=== PATIENT | female | born 1950 | race Caucasian/White ===

== ENCOUNTER → 2017-11-20 | Outpatient (CLI) | payer MEDICARE, BC ==
--- NOTE | 2017-11-20 15:20 | BD ---
EXAMINATION TYPE: Axial Bone Density DATE OF EXAM: 11/20/2017 COMPARISON: NONE CLINICAL HISTORY: Z 13.820 Height: 64 IN Weight: 220 LBS FRAX RISK QUESTIONS: Secondary Osteoporosis: 3. Menopause before 45: YES AGE 43 RISK FACTORS HISTORY OF: Active: YES Postmenopausal woman: AGE 43 MEDICATIONS: Additional Medications: VIT D, AMLODIPINE, SERTRALINE, LISINOPRIL, GLIMEPIRIDE, LOVASTATIN, GABAPENTI N Additional History: BREAST CANCER WITH CHEMO AGE 43 EXAM MEASUREMENTS: Bone mineral densitometry was performed using the [employer] System. Bone mineral density as measured about the Lumbar spine is: ----- L1-L4(G/cm2): 1.303 T Score Values are as follows: ----- L2: 0.6 ----- L3: 2.4 ----- L4: 0.4 ----- L1-L4: 1.0 Bone mineral density BASELINE Bone mineral density about the R hip (g/cm2): 0.961 Bone mineral density about the L hip (g/cm2): 0.957 T Score values are as follows: -----R Neck: -0.6 -----L Neck: -0.6 -----R Total: 0.6 -----L Total: 0.7 Bone mineral density BASELINE IMPRESSION: Normal (Values between +1 and -1 indicate normal bone mass). Consider repeating this study in 5 year s or sooner if there is some new clinical indication. NOTE: T-SCORE=SD OF THE YOUNG ADULT MEAN.
== END | disposition home or self-care (01) ==
LOC: RADBDWWP 14:20
PROVIDERS: ATTEND Family Medicine
DX: Z13.820 Encounter for screening for osteoporosis (principal)
CPT/HCPCS: 77080

== ENCOUNTER 2020-03-23 13:50 | Emergency (ER) | payer MEDICARE, BC ==
[2020-03-23 13:58] VITALS: RESP 18; TEMP 98.4
--- NOTE | 2020-03-23 14:08 | ED ---
Headache HPI - General Chief Complaint: Headache Stated Complaint: Head pain Time Seen by Provider: 03/23/20 14:07 Mode of arrival: wheelchair Limitations: no limitations - History of Present Illness Initial Comments: 69-year-old female presenting to the emergency Department with a chief complaint of a headache. Patient states she has developed a headache and occipital region approximately 1 week ago. States she is able to control most of the pain with Tylenol but it continues to return. States the pain starts near the proximal cervical spine and radiates slightly superior to that. She denies any associated lightheadedness, dizziness, nausea, vomiting or diarrhea. She does report blurry vision but states that has been ongoing for quite some time and had her eyes evaluated by an environmental project manager with no significant findings. She denies any gait instability, one-sided weakness or paresthesias. She denies any neck stiffness, chills or fevers. - Related Data Home Medications Medication Instructions Recorded Confirmed Ascorbic Acid [Vitamin C] 1,000 mg PO DAILY 03/23/20 03/23/20 Cholecalciferol [Vitamin D3 (25 25 mcg PO DAILY 03/23/20 03/23/20 Mcg = 1000 Iu)] Cinnamon Bark [Cinnamon] 500 mg PO DAILY 03/23/20 03/23/20 Fluticasone Nasal [place] [Flonase 1 spray EA NOSTRIL BID PRN 03/23/20 03/23/20 Nasal [place]] Gabapentin 300 mg PO DAILY@1200 03/23/20 03/23/20 Gabapentin 600 mg PO BID 03/23/20 03/23/20 Garlic 1 tab PO DAILY 03/23/20 03/23/20 Glimepiride [Amaryl] 1 mg PO HS 03/23/20 03/23/20 Glimepiride [Amaryl] 2 mg PO DAILY 03/23/20 03/23/20 Lisinopril-Hctz 20-25 mg 1 tab PO DAILY 03/23/20 03/23/20 [Zestoretic 20-25] Lovastatin [Mevacor] 20 mg PO HS 03/23/20 03/23/20 [place]-3 Acid Ethyl Esters [Lovaza] 1 gm PO BID 03/23/20 03/23/20 Sertraline [Zoloft] 50 mg PO DAILY 01/19/21 01/19/21 Vitamin A 120 Mcg 120 mcg PO DAILY 03/23/20 03/23/20 amLODIPine [Norvasc] 5 mg PO HS 03/23/20 03/23/20 metFORMIN HCL ER [Glucophage Xr] 500 mg PO BID 03/23/20 03/23/20 Allergies Allergy/AdvReac Type Severity Reaction Status Date / Time amoxicillin Allergy Unknown Verified 03/23/20 15:21 Penicillins Allergy Unknown Verified 03/23/20 15:21 phenytoin [From Dilantin] Allergy Unknown Verified 03/23/20 15:21 Sulfa (Sulfonamide Allergy Unknown Verified 03/23/20 15:21 Antibiotics) Review of Systems ROS Statement: Those systems with pertinent positive or pertinent negative responses have been documented in the HPI. ROS Other: All systems not noted in ROS Statement are negative. Past Medical History Past Medical History: Cancer, Diabetes Mellitus, Hyperlipidemia, Hypertension Additional Past Medical History / Comment(s): breast cancer History of Any Multi-Drug Resistant Organisms: None Reported Past Surgical History: Breast Surgery Additional Past Surgical History / Comment(s): right mastectomy Past Psychological History: No Psychological Hx Reported Smoking Status: Former smoker Past Alcohol Use History: Occasional Past Drug Use History: None Reported General Exam Limitations: no limitations General appearance: alert, in no apparent distress, obese Head exam: Present: atraumatic, normocephalic, normal inspection. Absent: other (No tenderness over the temporal region, bilaterally.) Eye exam: Present: normal appearance, PERRL, EOMI Pupils: Present: normal accommodation ENT exam: Present: normal exam, normal oropharynx, mucous membranes moist, TM's normal bilaterally, normal external ear exam Neck exam: Present: normal inspection, full ROM. Absent: tenderness Respiratory exam: Present: normal lung sounds bilaterally. Absent: respiratory distress, wheezes, rales Cardiovascular Exam: Present: regular rate, normal rhythm, normal heart sounds Extremities exam: Present: normal inspection, full ROM, normal capillary refill. Absent: tenderness, pedal edema, joint swelling, calf tenderness Back exam: Present: normal inspection, full ROM. Absent: tenderness, CVA tenderness (R), CVA tenderness (L) Neurological exam: Present: alert, oriented X3, normal gait Psychiatric exam: Present: normal affect, normal mood Skin exam: Present: warm, dry, intact, normal color Course Vital Signs 03/23/20 03/23/20 13:53 16:17 Temperature 98.4 F Pulse Rate 83 63 Respiratory 18 18 Rate Blood Pressure 153/77 155/57 O2 Sat by Pulse 98 100 Oximetry Medical Decision Making - Medical Decision Making 61-year-old female presenting to the emergency department with chief complaint of a headache. On physical examination, patient does not have any focal neurologic deficits. Tenderness seems to be localized to the superior region of the cervical spine and slightly superior that in the occipital region. She does have paraspinal tenderness of the cervical neck. Full range of motion of the neck. No fever or chills. VS within normal limits. CBC CMP unremarkable. CT of the brain and C-spine are unremarkable. Patient was given IV fluids, Toradol, Reglan and Benadryl. On reevaluation, patient reports improvement in symptoms. Patient was advised to follow-up with her primary care physician and a neurologist. Return parameters were thoroughly discussed the patient was understanding and agreeable. Case discussed with physician. - Lab Data Result diagrams: 03/23/20 14:29 03/23/20 14:29 Lab Results 03/23/20 03/23/20 Range/Units 14:29 14:29 WBC 5.3 (3.8-10.6) k/uL RBC 4.05 (3.80-5.40) m/uL Hgb 13.0 (11.4-16.0) gm/dL Hct 37.3 (34.0-46.0) % MCV 92.1 (80.0-100.0) fL MCH 32.1 (25.0-35.0) pg MCHC 34.8 (31.0-37.0) g/dL RDW 13.3 (11.5-15.5) % Plt Count 229 (150-450) k/uL MPV 7.2 Neutrophils % 57 % Lymphocytes % 33 % Monocytes % 6 % Eosinophils % 3 % Basophils % 1 % Neutrophils # 3.0 (1.3-7.7) k/uL Lymphocytes # 1.7 (1.0-4.8) k/uL Monocytes # 0.3 (0-1.0) k/uL Eosinophils # 0.1 (0-0.7) k/uL Basophils # 0.0 (0-0.2) k/uL Sodium 141 (137-145) mmol/L Potassium 4.0 (3.5-5.1) mmol/L Chloride 108 H (98-107) mmol/L Carbon Dioxide 25 (22-30) mmol/L Anion Gap 8 mmol/L BUN 19 H (7-17) mg/dL Creatinine 0.76 (0.52-1.04) mg/dL Est GFR (CKD-EPI)AfAm >90 (>60 ml/min/1.73 sqM) Est GFR (CKD-EPI)NonAf 81 (>60 ml/min/1.73 sqM) Glucose 161 H (74-99) mg/dL Calcium 10.0 (8.4-10.2) mg/dL Total Bilirubin 0.4 (0.2-1.3) mg/dL AST 21 (14-36) U/L ALT 23 (4-34) U/L Alkaline Phosphatase 46 (38-126) U/L Total Protein 7.3 (6.3-8.2) g/dL Albumin 4.4 (3.5-5.0) g/dL Disposition Clinical Impression: Headache Disposition: HOME SELF-CARE Condition: Stable Instructions (If sedation given, give patient instructions): Acute Headache (ED ) Additional Instructions: Alternate between Tylenol and Motrin for pain control. Follow up with neurology. Return to emergency department if symptoms worsen. Is patient prescribed a controlled substance at d/c from ED?: No Referrals: Heriberto Eubanks MD [Primary Care Provider] - 1-2 days Brian Glover MD [STAFF PHYSICIAN] - 1-2 days Time of Disposition: 16:07
[2020-03-23] MEDS ORDERED: SODIUM CHLORIDE 0.9% 1,000 ML IV STA (14:21)
[2020-03-23] MEDS ORDERED: METOCLOPRAMIDE 5 MG/ML 2 ML VIAL IVP STA (14:23)
[2020-03-23] MEDS ORDERED: diphenhydrAMINE 50 MG/ML 1 ML VIAL IVP STA (14:23)
[2020-03-23] MEDS ORDERED: KETOROLAC 15 MG/ML 1 ML VIAL IVP STA (14:23)
[2020-03-23 14:45] LABS: Basophils % (A) 1 %; Eosinophils # (A) 0.1 k/uL (0-0.7); Eosinophils % (A) 3 %; HCT 37.3 % (34.0-46.0); Lymphocytes # (A) 1.7 k/uL (1.0-4.8); Lymphocytes % (A) 33 %; MCH 32.1 pg (25.0-35.0); MCHC 34.8 g/dL (31.0-37.0); MCV 92.1 fL (80.0-100.0); Mean Platelet Volume 7.2; Monocytes # (A) 0.3 k/uL (0-1.0); Monocytes % (A) 6 %; Neutrophils % (A) 57 %; Platelet Count 229 k/uL (150-450); RBC 4.05 m/uL (3.80-5.40); RDW 13.3 % (11.5-15.5); WBC 5.3 k/uL (3.8-10.6)
[2020-03-23 14:54] LABS: ALT 23 U/L (4-34); AST 21 U/L (14-36); African American GFR (CKD) >90 (>60 ml/min/1.73 sqM); Albumin 4.4 g/dL (3.5-5.0); Alkaline Phosphatase 46 U/L (38-126); Anion Gap 8 mmol/L; Blood Urea Nitrogen 19 mg/dL (7-17); Carbon Dioxide 25 mmol/L (22-30); Chloride 108 mmol/L (98-107); Glucose 161 mg/dL (74-99); Non-African American GFR(CKD) 81 (>60 ml/min/1.73 sqM); Sodium 141 mmol/L (137-145); Total Bilirubin 0.4 mg/dL (0.2-1.3); Total Protein 7.3 g/dL (6.3-8.2)
--- NOTE | 2020-03-23 15:27 | CT ---
EXAMINATION TYPE: CT cervical spine wo con DATE OF EXAM: 03/23/2020 COMPARISON: None HISTORY: Posterior neck and Right arm pain without injury CT DLP: 460.4 mGycm CONTRAST: None CT of the cervical spine is performed in the axial plane at 2 mm thick sections. Reconstructed image s in the coronal, and sagittal plane are reviewed on the computer. No acute fractures are evident. Vertebral body alignment is normal. Disc heights are preserved. Vertebral body heights are preserved. No spinal canal stenosis is evident No neural foraminal stenosis is evident. IMPRESSIONS: 1. Normal CT cervical spine.
--- NOTE | 2020-03-23 15:49 | CT ---
EXAMINATION TYPE: CT brain wo con DATE OF EXAM: 03/23/2020 COMPARISON: None INDICATION: headache DLP: 1068.4 mGycm, Automated exposure control for dose reduction was used. CONTRAST: None CT of the brain is performed utilizing 3 mm thick sections through the posterior fossa and 3 mm thick sections through the remaining calvarium. Study is performed within 24 hours of arrival to the hosp [facility]. No abnormal hyperdensity is present to suggest an acute intracranial hemorrhage. No mass lesion is evident. No acute infarcts are evident. Ventricles and sulci are appropriate for the patient age. Paranasal sinuses and mastoid air cells within the [id number] are clear. IMPRESSIONS: 1. Normal CT Brain
[2020-03-23 16:18] VITALS: BP 155/57; PULSE 63
== END 2020-03-23 16:17 | disposition home or self-care (01) ==
LOC: EC 13:50
DX: R51.9 Headache, unspecified (principal); H53.8 Other visual disturbances; E78.5 Hyperlipidemia, unspecified; E11.9 Type 2 diabetes mellitus without complications; I10 Essential (primary) hypertension; Z79.84 Long term (current) use of oral hypoglycemic drugs; Z79.899 Other long term (current) drug therapy; Z88.0 Allergy status to penicillin; Z88.2 Allergy status to sulfonamides; Z88.8 Allergy status to other drugs, medicaments and biological substances; Z87.891 Personal history of nicotine dependence; Z85.3 Personal history of malignant neoplasm of breast; Z90.11 Acquired absence of right breast and nipple
CPT/HCPCS: 36415; 80053; 85025; 72125; 70450; 99284; 96374; 96375 ×2; 96361 ×2; J1200; J2765; J1885

== ENCOUNTER 2020-04-14 11:39 | Emergency (ER) | payer MEDICARE, BC ==
[2020-04-14 11:46] VITALS: TEMP 98.2
[2020-04-14 12:09] LABS: Glucose,Whole Blood 262 mg/dL (75-99)
--- NOTE | 2020-04-14 12:59 | XR ---
EXAMINATION TYPE: XR chest 2V DATE OF EXAM: 04/14/2020 COMPARISON: NONE TECHNIQUE: PA and lateral views submitted. HISTORY: High blood pressure and weakness FINDINGS: The lungs are clear and there is no pneumothorax, pleural effusion, or focal pneumonia. Heart size normal. No overt failure. Arthropathy of the shoulders. Degenerative changes spine. Hyperinflation gonzales ggests COPD. IMPRESSION: 1. No acute process.
[2020-04-14 13:07] LABS: ALT 32 U/L (4-34); AST 31 U/L (14-36); African American GFR (CKD) >90 (>60 ml/min/1.73 sqM); Alkaline Phosphatase 66 U/L (38-126); Anion Gap 13 mmol/L; Blood Urea Nitrogen 19 mg/dL (7-17); Calcium 10.6 mg/dL (8.4-10.2); Carbon Dioxide 27 mmol/L (22-30); Chloride 100 mmol/L (98-107); Glucose 268 mg/dL (74-99); Magnesium 1.7 mg/dL (1.6-2.3); Non-African American GFR(CKD) >90 (>60 ml/min/1.73 sqM); Phosphorus 3.3 mg/dL (2.5-4.5); Potassium 4.5 mmol/L (3.5-5.1); Sodium 140 mmol/L (137-145); Total Bilirubin 0.6 mg/dL (0.2-1.3); Total Protein 8.2 g/dL (6.3-8.2)
[2020-04-14 13:10] LABS: Appearance,Urine Clear (Clear); Bilirubin,Urine Negative (Negative); Blood,Urine Negative (Negative); Color,Urine Yellow; Glucose,Urine (UA) Negative (Negative); Ketones,Urine Negative (Negative); Leukocyte Esterase,Urine Small (Negative); Mucus,Urine Rare /hpf; Nitrite,Urine Negative (Negative); PH, Urine 6.5 (5.0-8.0); Protein,Urine Negative (Negative); Specific Gravity,Urine 1.009 (1.001-1.035); Squamous Epithelial Cell,Urine <1 /hpf (0-4); Urobilinogen,Urine <2.0 mg/dL (<2.0); WBC,Urine 3 /hpf (0-5)
[2020-04-14] MEDS ORDERED: INSULIN REGULAR 100 UNIT/ML VIAL SQ ONE (13:22)
[2020-04-14 13:32] LABS: Basophils % (A) 1 %; Eosinophils # (A) 0.1 k/uL (0-0.7); Eosinophils % (A) 2 %; HCT 39.5 % (34.0-46.0); HGB 13.1 gm/dL (11.4-16.0); Lymphocytes # (A) 1.5 k/uL (1.0-4.8); Lymphocytes % (A) 29 %; MCH 30.7 pg (25.0-35.0); MCHC 33.1 g/dL (31.0-37.0); MCV 92.7 fL (80.0-100.0); Mean Platelet Volume 7.5; Monocytes # (A) 0.3 k/uL (0-1.0); Monocytes % (A) 5 %; Neutrophils # (A) 3.2 k/uL (1.3-7.7); Neutrophils % (A) 63 %; Platelet Count 238 k/uL (150-450); RBC 4.26 m/uL (3.80-5.40); RDW 13.1 % (11.5-15.5); WBC 5.1 k/uL (3.8-10.6)
[2020-04-14 13:49] LABS: INR 0.9 (<1.2); Prothrombin Time 10.2 sec (9.0-12.0)
[2020-04-14 13:55] LABS: Partial Thromboplastin Time 19.1 sec (22.0-30.0)
[2020-04-14 14:00] LABS: Glucose,Whole Blood 241 mg/dL (75-99)
--- NOTE | 2020-04-14 14:06 | ED ---
Recheck HPI - General Chief Complaint: Recheck/Abnormal Lab/Rx Stated Complaint: High Blood Sugar Time Seen by Provider: 04/14/20 11:54 Source: patient Mode of arrival: wheelchair Limitations: no limitations - History of Present Illness Initial Comments: 69-year-old female presenting today for chief complaint of elevated blood glucose, fatigue. Patient states she has felt fatigued and she thinks is all secondary to her elevated blood glucose levels. She states they have been around 300-400s. Patient denies any dysuria urgency frequency cough chest pain shortness of breath headache nausea vomiting visual changes weakness sensation deficits. She denies abdominal pain vomiting diarrhea she denies additional complaints. She states she just felt more tired than usual and thinks this is secondary to her sugars. - Related Data Home Medications Medication Instructions Recorded Confirmed Ascorbic Acid [Vitamin C] 1,000 mg PO DAILY 03/23/20 04/14/20 Cholecalciferol [Vitamin D3 (25 25 mcg PO DAILY 03/23/20 04/14/20 Mcg = 1000 Iu)] Cinnamon Bark [Cinnamon] 500 mg PO DAILY 03/23/20 04/14/20 Fluticasone Nasal [place] [Flonase 1 spray EA NOSTRIL BID 03/23/20 04/14/20 Nasal [place]] Gabapentin 300 mg PO DAILY@1200 03/23/20 04/14/20 Gabapentin 600 mg PO BID 03/23/20 04/14/20 Garlic 1 tab PO DAILY 03/23/20 04/14/20 Glimepiride [Amaryl] 1.5 mg PO HS 03/23/20 04/14/20 Glimepiride [Amaryl] 2 mg PO DAILY 03/23/20 04/14/20 Lisinopril-Hctz 20-25 mg 1 tab PO DAILY 03/23/20 04/14/20 [Zestoretic 20-25] Lovastatin [Mevacor] 20 mg PO HS 03/23/20 04/14/20 [place]-3 Acid Ethyl Esters [Lovaza] 1 gm PO BID 03/23/20 04/14/20 Sertraline [Zoloft] 50 mg PO DAILY 03/23/20 04/14/20 Vitamin A 120 Mcg 120 mcg PO DAILY 03/23/20 04/14/20 amLODIPine [Norvasc] 5 mg PO BID 03/23/20 04/14/20 metFORMIN HCL ER [Glucophage Xr] 750 mg PO DAILY 03/23/20 04/14/20 Coconut Oil 1 cap PO DAILY 04/14/20 04/14/20 Cranberry Fruit Extract [Cranberry] 500 mg PO DAILY 04/14/20 04/14/20 Lysine HCl [l-Lysine] 1,000 mg PO DAILY 04/14/20 04/14/20 Tart Doll Extract 1 cap PO DAILY 04/14/20 04/14/20 Turmeric/Turmeric Root Extract 1 cap PO DAILY 04/14/20 04/14/20 [Turmeric 450-50 mg Capsule] Allergies Allergy/AdvReac Type Severity Reaction Status Date / Time amoxicillin Allergy Unknown Verified 04/14/20 13:26 Penicillins Allergy Unknown Verified 04/14/20 13:26 phenytoin [From Dilantin] Allergy Unknown Verified 04/14/20 13:26 Sulfa (Sulfonamide Allergy Unknown Verified 04/14/20 13:26 Antibiotics) Review of Systems ROS Statement: Those systems with pertinent positive or pertinent negative responses have been documented in the HPI. ROS Other: All systems not noted in ROS Statement are negative. Past Medical History Past Medical History: Cancer, Diabetes Mellitus, Hyperlipidemia, Hypertension Additional Past Medical History / Comment(s): breast cancer History of Any Multi-Drug Resistant Organisms: None Reported Past Surgical History: Breast Surgery Additional Past Surgical History / Comment(s): right mastectomy Past Psychological History: Anxiety Smoking Status: Former smoker Past Alcohol Use History: Occasional Past Drug Use History: None Reported General Exam - General Exam Comments Initial Comments: General: The patient is awake and alert, in no distress Eye: +3 mm pupils are equal, round and reactive to light, extra-ocular movements are intact. No nystagmus. There is normal conjunctiva bilaterally. No signs of icterus. Ears, nose, mouth and throat: There are moist mucous membranes and no oral lesions. Neck: The neck is supple, there is no tenderness or JVD. Cardiovascular: There is a regular rate and rhythm. No murmur, rub or gallop is appreciated. Respiratory: Lungs are clear to auscultation, respirations are non-labored, breath sounds are equal. No wheezes, stridor, rales, or rhonchi. Gastrointestinal: Soft, non-distended, non-tender abdomen without masses or organomegaly noted. There is no rebound or guarding present. Musculoskeletal: Normal ROM, no tenderness. Strength 5/5. Sensation intact. Radial pulses equal bilaterally 2+. Neurological: A&O x 3. CN II-XII intact grossly, There are no obvious motor or sensory deficits. Coordination appears grossly intact. Speech is normal. Skin: Skin is warm and dry and no rashes or lesions are noted. Psychiatric: Cooperative, appropriate mood & affect, normal judgment. Limitations: no limitations Course Vital Signs 04/14/20 04/14/20 11:42 14:29 Temperature 98.2 F Pulse Rate 89 77 Respiratory 20 18 Rate Blood Pressure 186/82 135/66 O2 Sat by Pulse 98 97 Oximetry Medical Decision Making - Medical Decision Making Leukos elevated. Anion gap 13. No ketones in urine. Acetone negative. Patient does not appear to She appears in no distress lungs clear heart sounds within normal limits. Chest x-ray clear EKG no acute findings. Patient sugar is elevated however at this point feel to be managed on outpatient basis. Patient was given 1 dose of 3 units of subcu regular insulin. Return per Mckayla discussed patient discharged appearing well. Dr. Puente agreeable to care plan and discharge. - Lab Data Result diagrams: 04/14/20 13:10 04/14/20 12:24 Lab Results 04/14/20 04/14/20 04/14/20 Range/Units 12:07 12:24 12:24 WBC (3.8-10.6) k/uL RBC (3.80-5.40) m/uL Hgb (11.4-16.0) gm/dL Hct (34.0-46.0) % MCV (80.0-100.0) fL MCH (25.0-35.0) pg MCHC (31.0-37.0) g/dL RDW (11.5-15.5) % Plt Count (150-450) k/uL MPV Neutrophils % % Lymphocytes % % Monocytes % % Eosinophils % % Basophils % % Neutrophils # (1.3-7.7) k/uL Lymphocytes # (1.0-4.8) k/uL Monocytes # (0-1.0) k/uL Eosinophils # (0-0.7) k/uL Basophils # (0-0.2) k/uL PT (9.0-12.0) sec INR (<1.2) APTT (22.0-30.0) sec Sodium 140 (137-145) mmol/L Potassium 4.5 (3.5-5.1) mmol/L Chloride 100 (98-107) mmol/L Carbon Dioxide 27 (22-30) mmol/L Anion Gap 13 mmol/L BUN 19 H (7-17) mg/dL Creatinine 0.68 (0.52-1.04) mg/dL Est GFR (CKD-EPI)AfAm >90 (>60 ml/min/1.73 sqM) Est GFR (CKD-EPI)NonAf >90 (>60 ml/min/1.73 sqM) Glucose 268 H (74-99) mg/dL POC Glucose (mg/dL) 262 H (75-99) mg/dL POC Glu Burlesque Dancer ID Svacha, II, Armando Plasma Lactic Acid [place] 2.1 H* (0.7-2.0) mmol/L Calcium 10.6 H (8.4-10.2) mg/dL Phosphorus 3.3 (2.5-4.5) mg/dL Magnesium 1.7 (1.6-2.3) mg/dL Total Bilirubin 0.6 (0.2-1.3) mg/dL AST 31 (14-36) U/L ALT 32 (4-34) U/L Alkaline Phosphatase 66 (38-126) U/L Troponin I (0.000-0.034) ng/mL Total Protein 8.2 (6.3-8.2) g/dL Albumin 5.0 (3.5-5.0) g/dL Urine Color Urine Appearance (Clear) Urine pH (5.0-8.0) Ur Specific [place] (1.001-1.035) Urine Protein (Negative) Urine Glucose (UA) (Negative) Urine Ketones (Negative) Urine Blood (Negative) Urine Nitrite (Negative) Urine Bilirubin (Negative) Urine Urobilinogen (<2.0) mg/dL Ur Leukocyte Esterase (Negative) Urine WBC (0-5) /hpf Ur Squamous Epith Cells (0-4) /hpf Urine Mucus (None) /hpf Acetone, Qual Negative (Negative) 04/14/20 04/14/20 04/14/20 Range/Units 12:24 12:42 13:10 WBC (3.8-10.6) k/uL RBC (3.80-5.40) m/uL Hgb (11.4-16.0) gm/dL Hct (34.0-46.0) % MCV (80.0-100.0) fL MCH (25.0-35.0) pg MCHC (31.0-37.0) g/dL RDW (11.5-15.5) % Plt Count (150-450) k/uL MPV Neutrophils % % Lymphocytes % % Monocytes % % Eosinophils % % Basophils % % Neutrophils # (1.3-7.7) k/uL Lymphocytes # (1.0-4.8) k/uL Monocytes # (0-1.0) k/uL Eosinophils # (0-0.7) k/uL Basophils # (0-0.2) k/uL PT 10.2 (9.0-12.0) sec INR 0.9 (<1.2) APTT 19.1 L (22.0-30.0) sec Sodium (137-145) mmol/L Potassium (3.5-5.1) mmol/L Chloride (98-107) mmol/L Carbon Dioxide (22-30) mmol/L Anion Gap mmol/L BUN (7-17) mg/dL Creatinine (0.52-1.04) mg/dL Est GFR (CKD-EPI)AfAm (>60 ml/min/1.73 sqM) Est GFR (CKD-EPI)NonAf (>60 ml/min/1.73 sqM) Glucose (74-99) mg/dL POC Glucose (mg/dL) (75-99) mg/dL POC Glu Burlesque Dancer ID Plasma Lactic Acid Dave[place] (0.7-2.0) mmol/L Calcium (8.4-10.2) mg/dL Phosphorus (2.5-4.5) mg/dL Magnesium (1.6-2.3) mg/dL Total Bilirubin (0.2-1.3) mg/dL AST (14-36) U/L ALT (4-34) U/L Alkaline Phosphatase (38-126) U/L Troponin I <0.012 (0.000-0.034) ng/mL Total Protein (6.3-8.2) g/dL Albumin (3.5-5.0) g/dL Urine Color Yellow Urine Appearance Clear (Clear) Urine pH 6.5 (5.0-8.0) Ur Specific [place] 1.009 (1.001-1.035) Urine Protein Negative (Negative) Urine Glucose (UA) Negative (Negative) Urine Ketones Negative (Negative) Urine Blood Negative (Negative) Urine Nitrite Negative (Negative) Urine Bilirubin Negative (Negative) Urine Urobilinogen <2.0 (<2.0) mg/dL Ur Leukocyte Esterase Small H (Negative) Urine WBC 3 (0-5) /hpf Ur Squamous Epith Cells <1 (0-4) /hpf Urine Mucus Rare H (None) /hpf Acetone, Qual (Negative) 04/14/20 04/14/20 Range/Units 13:10 13:57 WBC 5.1 (3.8-10.6) k/uL RBC 4.26 (3.80-5.40) m/uL Hgb 13.1 (11.4-16.0) gm/dL Hct 39.5 (34.0-46.0) % MCV 92.7 (80.0-100.0) fL MCH 30.7 (25.0-35.0) pg MCHC 33.1 (31.0-37.0) g/dL RDW 13.1 (11.5-15.5) % Plt Count 238 (150-450) k/uL MPV 7.5 Neutrophils % 63 % Lymphocytes % 29 % Monocytes % 5 % Eosinophils % 2 % Basophils % 1 % Neutrophils # 3.2 (1.3-7.7) k/uL Lymphocytes # 1.5 (1.0-4.8) k/uL Monocytes # 0.3 (0-1.0) k/uL Eosinophils # 0.1 (0-0.7) k/uL Basophils # 0.0 (0-0.2) k/uL PT (9.0-12.0) sec INR (<1.2) APTT (22.0-30.0) sec Sodium (137-145) mmol/L Potassium (3.5-5.1) mmol/L Chloride (98-107) mmol/L Carbon Dioxide (22-30) mmol/L Anion Gap mmol/L BUN (7-17) mg/dL Creatinine (0.52-1.04) mg/dL Est GFR (CKD-EPI)AfAm (>60 ml/min/1.73 sqM) Est GFR (CKD-EPI)NonAf (>60 ml/min/1.73 sqM) Glucose (74-99) mg/dL POC Glucose (mg/dL) 241 H (75-99) mg/dL POC Glu Burlesque Dancer LJ Charlene Aviles Plasma Lactic Acid [place] (0.7-2.0) mmol/L Calcium (8.4-10.2) mg/dL Phosphorus (2.5-4.5) mg/dL Magnesium (1.6-2.3) mg/dL Total Bilirubin (0.2-1.3) mg/dL AST (14-36) U/L ALT (4-34) U/L Alkaline Phosphatase (38-126) U/L Troponin I (0.000-0.034) ng/mL Total Protein (6.3-8.2) g/dL Albumin (3.5-5.0) g/dL Urine Color Urine Appearance (Clear) Urine pH (5.0-8.0) Ur Specific [place] (1.001-1.035) Urine Protein (Negative) Urine Glucose (UA) (Negative) Urine Ketones (Negative) Urine Blood (Negative) Urine Nitrite (Negative) Urine Bilirubin (Negative) Urine Urobilinogen (<2.0) mg/dL Ur Leukocyte Esterase (Negative) Urine WBC (0-5) /hpf Ur Squamous Epith Cells (0-4) /hpf Urine Mucus (None) /hpf Acetone, Qual (Negative) Disposition Clinical Impression: Hyperglycemia, Fatigue Disposition: HOME SELF-CARE Condition: Good Instructions (If sedation given, give patient instructions): Diabetic Hyperglycemia (ED) Additional Instructions: Please use medication as discussed. Please follow-up with family doctor in the next 2 days for outpatient glucose management. Please return to emergency room if the symptoms increase or worsen or for any other concerns. Is patient prescribed a controlled substance at d/c from ED?: No Referrals: Heriberto Eubanks MD [Primary Care Provider] - 1-2 days Time of Disposition: 14:05
[2020-04-14 14:29] VITALS: BP 135/66; PULSE 77; RESP 18
== END 2020-04-14 14:30 | disposition home or self-care (01) ==
LOC: EC 11:39
DX: E11.65 Type 2 diabetes mellitus with hyperglycemia (principal); R53.83 Other fatigue; I10 Essential (primary) hypertension; E78.5 Hyperlipidemia, unspecified; F41.9 Anxiety disorder, unspecified; Z79.51 Long term (current) use of inhaled steroids; Z79.84 Long term (current) use of oral hypoglycemic drugs; Z79.899 Other long term (current) drug therapy; Z88.0 Allergy status to penicillin; Z88.2 Allergy status to sulfonamides; Z88.8 Allergy status to other drugs, medicaments and biological substances; Z85.3 Personal history of malignant neoplasm of breast; Z90.11 Acquired absence of right breast and nipple; Z87.891 Personal history of nicotine dependence
CPT/HCPCS: 36415; 71046; 80053; 81001; 82009; 83605; 83735; 84100; 84484; 85025; 85610; 85730; 93005; 99285

== ENCOUNTER 2020-06-07 10:51 | Emergency (ER) | payer MEDICARE, BC ==
[2020-06-07 11:07] VITALS: PULSE 98
--- NOTE | 2020-06-07 12:16 | XR ---
EXAMINATION TYPE: XR chest 2V DATE OF EXAM: 06/07/2020 COMPARISON: 04/14/2020 TECHNIQUE: PA and lateral views submitted. HISTORY: Cough FINDINGS: The lungs are clear and there is no pneumothorax, pleural effusion, or focal pneumonia. Coarsened in terstitium noted with subsegmental changes seen in the left lung. Heart size normal. Biapical pleural thickening. Arthropathy of the shoulder. Mild hyperinflation. Hypertrophic and degenerative change o f the spine. IMPRESSION: 1. Correlate for bronchitis or mild interstitial pneumonitis
[2020-06-07 12:53] VITALS: BP 133/87
--- NOTE | 2020-06-07 13:23 | ED ---
General Adult HPI - General Source: patient Mode of arrival: ambulatory Limitations: no limitations <Yohan Valverde D - Last Filed: 06/07/20 15:11> <Sandra Ayers P - Last Filed: 06/07/20 16:43> - General Chief complaint: ENT Stated complaint: fever, cough, SOB Time Seen by Provider: 06/07/20 13:19 - History of Present Illness Initial comments: Dictation was produced using [employer] dictation software. please excuse any grammatical, word or spelling errors. This patient was cared for during a federal and state declared state of emergency secondary to Covid 19 Chief Complaint: 69-year-old female past medical history of diabetes, dyslipidemia hypertension, breast cancer presents to the emergency department for 2-3 weeks of left ear pain, constitutional symptoms History of Present Illness: Patient is a 61-year-old female she has multiple comorbidities. She states that for the last 2-3 weeks she's been having symptoms of fatigue, shortness of breath and cough. She was able to have a d iscussion with EMS who recommended the patient come to the emergency department. Patient has been around other sick individuals in her family. The ROS documented in this emergency department record has been reviewed and confirmed by me. Those systems with pertinent positive or negative responses have been documented in the HPI. All other systems are other negative and/or noncontributory. PHYSICAL EXAM: General Impression: Alert and oriented x3, not in acute distress HEENT: Normocephalic atraumatic, extra-ocular movements intact, pupils equal and reactive to light bilaterally, mucous membranes moist. Cardiovascular: Heart regular rate and rhythm Chest: Able to complete full sentences, no retractions, no tachypnea Abdomen: abdomen soft, non-tender, non-distended, no organomegaly Musculoskeletal: Pulses present and equal in all extremities, no peripheral edema Motor: no focal deficits noted Neurological: CN II-XII grossly intact, no focal motor or sensory deficits noted Skin: Intact with no visualized rashes Psych: Normal affect and mood ED course: 69-year-old female past medical history of diabetes dyslipidemia hypertension presents today with respiratory infectious symptoms and general malaise. All signs upon arrival shows temperature 102.3, respiratory rate of 18 with a pulse of 98. Patient is a 96% at rest on room air. Blood pressure 133/87. Patient had an ambulatory pulse ox that was maintained with 93-94%. Patient not requiring supplemental oxygen. She did however get tachycardic during ambulatory pulse ox monitoring. Laboratory evaluation obtained. Mild leukopenia of 3.3. Metabolic panel shows acidosis is 19 with a gap of 14. Patient does appear to be dry with elevated renal markers that appear to be new. Coronavirus test is positive. Inflammato ry markers are elevated. Chest x-ray shows bronchitis versus mild interstitial pneumonitis. Patient order for Tylenol, Decadron and intravenous fluids. Patient be signed out to Dr. Ayers (Yohan Valverde) - Related Data Home Medications Medication Instructions Recorded Confirmed Ascorbic Acid [Vitamin C] 1,000 mg PO DAILY 03/23/20 04/14/20 Cholecalciferol [Vitamin D3 (25 25 mcg PO DAILY 03/23/20 04/14/20 Mcg = 1000 Iu)] Cinnamon Bark [Cinnamon] 500 mg PO DAILY 03/23/20 04/14/20 Fluticasone Nasal [place] [Flonase 1 spray EA NOSTRIL BID 03/23/20 04/14/20 Nasal [place]] Gabapentin 300 mg PO DAILY@1200 03/23/20 04/14/20 Gabapentin 600 mg PO BID 03/23/20 04/14/20 Garlic 1 tab PO DAILY 03/23/20 04/14/20 Glimepiride [Amaryl] 1.5 mg PO HS 03/23/20 04/14/20 Glimepiride [Amaryl] 2 mg PO DAILY 03/23/20 04/14/20 Lisinopril-Hctz 20-25 mg 1 tab PO DAILY 03/23/20 04/14/20 [Zestoretic 20-25] Lovastatin [Mevacor] 20 mg PO HS 03/23/20 04/14/20 [place]-3 Acid Ethyl Esters [Lovaza] 1 gm PO BID 03/23/20 04/14/20 Sertraline [Zoloft] 50 mg PO DAILY 03/23/20 04/14/20 Vitamin A 120 Mcg 120 mcg PO DAILY 03/23/20 04/14/20 amLODIPine [Norvasc] 5 mg PO BID 03/23/20 04/14/20 metFORMIN HCL ER [Glucophage Xr] 750 mg PO DAILY 03/23/20 04/14/20 Coconut Oil 1 cap PO DAILY 04/14/20 04/14/20 Cranberry Fruit Extract [Cranberry] 500 mg PO DAILY 04/14/20 04/14/20 Lysine HCl [l-Lysine] 1,000 mg PO DAILY 04/14/20 04/14/20 Tart Doll Extract 1 cap PO DAILY 04/14/20 04/14/20 Turmeric/Turmeric Root Extract 1 cap PO DAILY 04/14/20 04/14/20 [Turmeric 450-50 mg Capsule] Allergies Allergy/AdvReac Type Severity Reaction Status Date / Time amoxicillin Allergy Unknown Verified 06/07/20 11:03 Penicillins Allergy Unknown Verified 06/07/20 11:03 phenytoin [From Dilantin] Allergy Unknown Verified 06/07/20 11:03 Sulfa (Sulfonamide Allergy Unknown Verified 06/07/20 11:03 Antibiotics) Review of Systems ROS Other: All systems not noted in ROS Statement are negative. <Yohan Valverde - Last Filed: 06/07/20 15:11> ROS Other: All systems not noted in ROS Statement are negative. <Sandra Ayers - Last Filed: 06/07/20 16:43> ROS Statement: Those systems with pertinent positive or pertinent negative responses have been documented in the HPI. Past Medical History Past Medical History: Cancer, Diabetes Mellitus, Hyperlipidemia, Hypertension Additional Past Medical History / Comment(s): breast cancer History of Any Multi-Drug Resistant Organisms: None Reported Past Surgical History: Breast Surgery Additional Past Surgical History / Comment(s): right mastectomy Past Psychological History: Anxiety Smoking Status: Former smoker Past Alcohol Use History: Occasional Past Drug Use History: None Reported <Yohan Valverde D - Last Filed: 06/07/20 15:11> General Exam Limitations: no limitations <Yohan Valverde - Last Filed: 06/07/20 15:11> Course Vital Signs 06/07/20 06/07/20 06/07/20 11:03 12:52 15:40 Temperature 102.3 F H Pulse Rate 98 Respiratory 18 18 Rate Blood Pressure 133/87 O2 Sat by Pulse 96 Oximetry 06/07/20 15:46 Temperature 100.5 F H Pulse Rate Respiratory 16 Rate Blood Pressure O2 Sat by Pulse Oximetry Medical Decision Making - Lab Data Result diagrams: 06/07/20 13:28 06/07/20 13:28 <Yohan Valverde - Last Filed: 06/07/20 15:11> - Lab Data Result diagrams: 06/07/20 13:28 06/07/20 13:28 <Sandra Ayers P - Last Filed: 06/07/20 16:43> - Medical Decision Making Patient was re-evaluated, again confirms symptoms for weeks, not a candidate for monoclonal antibodies. Did received IVF and decadron in the ER. Discussed supportive care with Vitamin C, D, Zinc and Melatonin. Due to patients diabetes will no discharge with oral steroids. Return parameters discussed, patient discharged in stable condition. (Sandra Ayers) - Lab Data Lab Results 06/07/20 06/07/20 06/07/20 Range/Units 11:30 13:28 13:28 WBC 3.3 L (3.8-10.6) k/uL RBC 3.87 (3.80-5.40) m/uL Hgb 12.3 (11.4-16.0) gm/dL Hct 34.7 (34.0-46.0) % MCV 89.7 (80.0-100.0) fL MCH 31.8 (25.0-35.0) pg MCHC 35.5 (31.0-37.0) g/dL RDW 13.4 (11.5-15.5) % Plt Count 165 (150-450) k/uL MPV 7.6 Neutrophils % 74 % Lymphocytes % 19 % Monocytes % 5 % Eosinophils % 1 % Basophils % 1 % Neutrophils # 2.4 (1.3-7.7) k/uL Lymphocytes # 0.6 L (1.0-4.8) k/uL Monocytes # 0.2 (0-1.0) k/uL Eosinophils # 0.0 (0-0.7) k/uL Basophils # 0.0 (0-0.2) k/uL Sodium 134 L (137-145) mmol/L Potassium 3.8 (3.5-5.1) mmol/L Chloride 101 (98-107) mmol/L Carbon Dioxide 19 L (22-30) mmol/L Anion Gap 14 mmol/L BUN 39 H (7-17) mg/dL Creatinine 1.29 H (0.52-1.04) mg/dL Est GFR (CKD-EPI)AfAm 49 (>60 ml/min/1.73 sqM) Est GFR (CKD-EPI)NonAf 43 (>60 ml/min/1.73 sqM) Glucose 157 H (74-99) mg/dL Calcium 9.6 (8.4-10.2) mg/dL Total Bilirubin 0.4 (0.2-1.3) mg/dL AST 51 H (14-36) U/L ALT 38 H (4-34) U/L Alkaline Phosphatase 49 (38-126) U/L C-Reactive Protein 88.3 H (<10.0) mg/L Total Protein 7.8 (6.3-8.2) g/dL Albumin 4.7 (3.5-5.0) g/dL Coronavirus (PCR) Detected A (Not Detectd) Disposition <Yohan Valverde D - Last Filed: 06/07/20 15:11> <Sandra Ayers P - Last Filed: 06/07/20 16:43> Clinical Impression: COVID-19 Disposition: HOME SELF-CARE Condition: Stable Additional Instructions: You have tested positive for COVID-19, due to the duration of your symptoms you are not a candidate for infusion of antibodies. Recommend supportive care with Vitamin C, VItamin D, Zinc, Melatonin nightly to help you sleep. Take Tylenol/Motrin for fevers or body aches and drink plenty of fluids to stay hydrated. Return to the ER for any worsening shortness of breath, chest pain or any new or concerning symptoms. Referrals: Heriberto Eubanks MD [Primary Care Provider] - 1-2 days
[2020-06-07 13:38] LABS: Basophils % (A) 1 %; Eosinophils % (A) 1 %; HCT 34.7 % (34.0-46.0); HGB 12.3 gm/dL (11.4-16.0); Lymphocytes # (A) 0.6 k/uL (1.0-4.8); Lymphocytes % (A) 19 %; MCH 31.8 pg (25.0-35.0); MCHC 35.5 g/dL (31.0-37.0); MCV 89.7 fL (80.0-100.0); Mean Platelet Volume 7.6; Monocytes # (A) 0.2 k/uL (0-1.0); Monocytes % (A) 5 %; Neutrophils # (A) 2.4 k/uL (1.3-7.7); Neutrophils % (A) 74 %; Platelet Count 165 k/uL (150-450); RBC 3.87 m/uL (3.80-5.40); RDW 13.4 % (11.5-15.5); WBC 3.3 k/uL (3.8-10.6)
[2020-06-07 13:54] LABS: Albumin 4.7 g/dL (3.5-5.0); C Reactive Protein 88.3 mg/L (<10.0); Calcium 9.6 mg/dL (8.4-10.2); Potassium 3.8 mmol/L (3.5-5.1); Total Bilirubin 0.4 mg/dL (0.2-1.3); Total Protein 7.8 g/dL (6.3-8.2)
[2020-06-07] MEDS ORDERED: ACETAMINOPHEN TAB 500 MG TAB PO STA (14:10)
[2020-06-07] MEDS ORDERED: dexAMETHasone 4 MG TAB PO STA (14:11)
[2020-06-07] MEDS ORDERED: SODIUM CHLORIDE 0.9% 500 ML 500 ML IV STA (14:11)
[2020-06-07] MEDS ORDERED: SODIUM CHLORIDE 0.9% 500 ML 1,000 ML IV STA (14:25)
[2020-06-07 15:47] VITALS: RESP 16; TEMP 100.5
== END 2020-06-07 16:45 | disposition home or self-care (01) ==
LOC: EC 10:51
DX: U07.1 COVID-19 (principal); H92.02 Otalgia, left ear; I10 Essential (primary) hypertension; E78.5 Hyperlipidemia, unspecified; E11.9 Type 2 diabetes mellitus without complications; F41.9 Anxiety disorder, unspecified; Z87.891 Personal history of nicotine dependence; Z88.0 Allergy status to penicillin; Z79.84 Long term (current) use of oral hypoglycemic drugs
CPT/HCPCS: 36415; 80053; 85025; 86140; 87635; 71046; 99285; 96360; J8540

== ENCOUNTER 2020-06-12 14:00 | Inpatient (IN) | payer MEDICARE, BC ==
[2020-06-12 14:12] LABS: Glucose,Whole Blood 346 mg/dL (75-99)
--- NOTE | 2020-06-12 14:19 | ED ---
General Adult HPI - General Chief complaint: Shortness of Breath Stated complaint: JAIME Time Seen by Provider: 06/12/20 14:06 Source: EMS Mode of arrival: EMS Limitations: altered mental status - History of Present Illness Initial comments: Dictation was produced using [employer] dictation software. please excuse any grammatical, word or spelling errors. This patient was cared for during a federal and state declared state of emergency secondary to Covid 19 Chief Complaint: 69-year-old female brought in by EMS for altered mental status and hypoxia History of Present Illness: She is a 61-year-old female patient is covert positive. She was last seen by myself 5 days ago. Patient is familiar to me. She's been having cough symptoms for approximately 2-3 weeks from 5 days ago. She was last seen normal at home on Sunday. Patient is altered and unable to provide history of present illness this time. Patient is a known coronavirus positive. She had symptoms of coronavirus 5 days ago. She had an ambulatory pulse ox was normal 5 days ago. EMS arrived on scene and found the patient was hypoxic with 46%. She was bag valve ventilated with improvement of oxygen. She was placed on nonrebreather prior to arrival to the ER. Unable to obtain secondary to mental status PHYSICAL EXAM: General Impression: GCS of 12, not in acute distress, pale HEENT: Normocephalic atraumatic, extra-ocular movements intact, pupils equal and reactive to light bilaterally, mucous membranes moist. Cardiovascular: Mildly tachycardic Chest: Bilateral breath sounds Abdomen: abdomen soft, non-tender, non-distended, no organomegaly Musculoskeletal: Pulses present and equal in all extremities, no peripheral edema Motor: no focal deficits noted Neurological: Moves all extremities grossly, patient is aphasic and saying insensible words when asked a question Skin: Intact with no visualized rashes ED course: 61-year-old feel presents with hypoxic Covid 19, she does have features that seem to be consistent with cerebrovascular accident. Patient was last seen normal 4 days ago. Patient is not a candidate for TPA at this time. Patient stroke workup and hypoxia workup. Vital signs upon arrival shows 86% on 15 L nonrebreather. She was placed on bilevel positive expiratory pressure with improvement to 95%. She is still tachypneic at 32. Rest vital signs within acceptable limits. Computed tomography scan of the brain and CT angios of the head and neck was obtained.CT angios the head and neck shows no acute abnormalities is moderate stenosis of proximal ICA. CT angios the chest shows bilateral diffuse patchy groundglass opacities. No acute PE. Blood gases were obtained. Patient has a pO2 of 79.300% FiO2 and urinalysis after 10 minutes of BiPAP. Laboratory evaluation obtained. CBC unremarkable. Leukocytopenia 0.6. Metabolic panel was obtained. Patient has BUN of 50, creatinine 1.0. This could be uremic encephalopathy. Glucose is 321. Troponin is elevated 0.104, CRP is 334. At this point patient's encephalopathy is likely secondary to metabolic encephalopathy added from hypoxia or uremia. Case is discussed with Dr. Constantino who is willing to accept patients care for admission. She will be disposition to ICU. ICU is currently full. Patient be boarded in the emergency room until bed becomes available. EKG interpretation: Ventricular rate 99, normal sinus rhythm, PA interval 120, QRS 86, QTC 462. No PA prolongation, no QTC prolongation, no ST or T-wave changes noted. EKG compared to 04/14/2020 showing no changes. Overall, this EKG is unremarkable - Related Data Home Medications Medication Instructions Recorded Confirmed Ascorbic Acid [Vitamin C] 1,000 mg PO DAILY 03/23/20 04/14/20 Cholecalciferol [Vitamin D3 (25 25 mcg PO DAILY 03/23/20 04/14/20 Mcg = 1000 Iu)] Cinnamon Bark [Cinnamon] 500 mg PO DAILY 03/23/20 04/14/20 Fluticasone Nasal [place] [Flonase 1 spray EA NOSTRIL BID 03/23/20 04/14/20 Nasal [place]] Gabapentin 300 mg PO DAILY@1200 03/23/20 04/14/20 Gabapentin 600 mg PO BID 03/23/20 04/14/20 Garlic 1 tab PO DAILY 03/23/20 04/14/20 Glimepiride [Amaryl] 1.5 mg PO HS 03/23/20 04/14/20 Glimepiride [Amaryl] 2 mg PO DAILY 03/23/20 04/14/20 Lisinopril-Hctz 20-25 mg 1 tab PO DAILY 03/23/20 04/14/20 [Zestoretic 20-25] Lovastatin [Mevacor] 20 mg PO HS 03/23/20 04/14/20 [place]-3 Acid Ethyl Esters [Lovaza] 1 gm PO BID 03/23/20 04/14/20 Sertraline [Zoloft] 50 mg PO DAILY 03/23/20 04/14/20 Vitamin A 120 Mcg 120 mcg PO DAILY 03/23/20 04/14/20 amLODIPine [Norvasc] 5 mg PO BID 03/23/20 04/14/20 metFORMIN HCL ER [Glucophage Xr] 750 mg PO DAILY 03/23/20 04/14/20 Coconut Oil 1 cap PO DAILY 04/14/20 04/14/20 Cranberry Fruit Extract [Cranberry] 500 mg PO DAILY 04/14/20 04/14/20 Lysine HCl [l-Lysine] 1,000 mg PO DAILY 04/14/20 04/14/20 Tart Doll Extract 1 cap PO DAILY 04/14/20 04/14/20 Turmeric/Turmeric Root Extract 1 cap PO DAILY 04/14/20 04/14/20 [Turmeric 450-50 mg Capsule] Allergies Allergy/AdvReac Type Severity Reaction Status Date / Time amoxicillin Allergy Unknown Verified 06/12/20 14:09 Penicillins Allergy Unknown Verified 06/12/20 14:09 phenytoin [From Dilantin] Allergy Unknown Verified 06/12/20 14:09 Sulfa (Sulfonamide Allergy Unknown Verified 06/12/20 14:09 Antibiotics) Review of Systems ROS Statement: Those systems with pertinent positive or pertinent negative responses have been documented in the HPI. ROS Other: All systems not noted in ROS Statement are negative. Past Medical History Past Medical History: Cancer, Diabetes Mellitus, Hyperlipidemia, Hypertension Additional Past Medical History / Comment(s): breast cancer History of Any Multi-Drug Resistant Organisms: None Reported Past Surgical History: Breast Surgery Additional Past Surgical History / Comment(s): right mastectomy Past Psychological History: Anxiety Smoking Status: Former smoker Past Alcohol Use History: Occasional Past Drug Use History: None Reported General Exam Limitations: altered mental status Course Vital Signs 06/12/20 06/12/20 06/12/20 14:02 14:08 14:09 Temperature 98.3 F Pulse Rate 104 H 100 Respiratory 32 H 32 H 32 H Rate Blood Pressure 145/86 148/77 O2 Sat by Pulse 86 L 95 Oximetry Medical Decision Making - Lab Data Result diagrams: 06/12/20 14:21 06/12/20 14:21 Lab Results 06/12/20 06/12/20 06/12/20 Range/Units 14:01 14:16 14:21 WBC 7.3 (3.8-10.6) k/uL RBC 3.94 (3.80-5.40) m/uL Hgb 11.8 (11.4-16.0) gm/dL Hct 35.4 (34.0-46.0) % MCV 89.7 (80.0-100.0) fL MCH 30.0 (25.0-35.0) pg MCHC 33.4 (31.0-37.0) g/dL RDW 14.1 (11.5-15.5) % Plt Count 357 D (150-450) k/uL MPV 7.5 Neutrophils % 86 % Lymphocytes % 8 % Monocytes % 4 % Eosinophils % 0 % Basophils % 1 % Neutrophils # 6.3 (1.3-7.7) k/uL Lymphocytes # 0.6 L (1.0-4.8) k/uL Monocytes # 0.3 (0-1.0) k/uL Eosinophils # 0.0 (0-0.7) k/uL Basophils # 0.0 (0-0.2) k/uL PT (9.0-12.0) sec INR (<1.2) APTT (22.0-30.0) sec Sample Site rbrach ABG pH 7.45 (7.35-7.45) ABG pCO2 32 L (35-45) mmHg ABG pO2 79 L (83-108) mmHg ABG HCO3 23 (21-25) mmol/L ABG Total CO2 24 (19-24) mmol/L ABG O2 Saturation 94.2 (94-97) % ABG Base Excess -1.5 mmol/L Yandel Test Yes FiO2 100 % Sodium (137-145) mmol/L Potassium (3.5-5.1) mmol/L Chloride (98-107) mmol/L Carbon Dioxide (22-30) mmol/L Anion Gap mmol/L BUN (7-17) mg/dL Creatinine (0.52-1.04) mg/dL Est GFR (CKD-EPI)AfAm (>60 ml/min/1.73 sqM) Est GFR (CKD-EPI)NonAf (>60 ml/min/1.73 sqM) Glucose (74-99) mg/dL POC Glucose (mg/dL) 346 H (75-99) mg/dL POC Glu Court Manager Ada [place] Plasma Lactic Acid Davey (0.7-2.0) mmol/L Calcium (8.4-10.2) mg/dL Ionized Calcium David (4.5-5.3) mg/dL Magnesium (1.6-2.3) mg/dL Total Bilirubin (0.2-1.3) mg/dL AST (14-36) U/L ALT (4-34) U/L Alkaline Phosphatase (38-126) U/L Troponin I (0.000-0.034) ng/mL C-Reactive Protein (<10.0) mg/L Total Protein (6.3-8.2) g/dL Albumin (3.5-5.0) g/dL Lipase (23-300) U/L 06/12/20 06/12/20 06/12/20 Range/Units 14:21 14:21 14:21 WBC (3.8-10.6) k/uL RBC (3.80-5.40) m/uL Hgb (11.4-16.0) gm/dL Hct (34.0-46.0) % MCV (80.0-100.0) fL MCH (25.0-35.0) pg MCHC (31.0-37.0) g/dL RDW (11.5-15.5) % Plt Count (150-450) k/uL MPV Neutrophils % % Lymphocytes % % Monocytes % % Eosinophils % % Basophils % % Neutrophils # (1.3-7.7) k/uL Lymphocytes # (1.0-4.8) k/uL Monocytes # (0-1.0) k/uL Eosinophils # (0-0.7) k/uL Basophils # (0-0.2) k/uL PT 9.5 (9.0-12.0) sec INR 0.9 (<1.2) APTT 24.0 (22.0-30.0) sec Sample Site ABG pH (7.35-7.45) ABG pCO2 (35-45) mmHg ABG pO2 (83-108) mmHg ABG HCO3 (21-25) mmol/L ABG Total CO2 (19-24) mmol/L ABG O2 Saturation (94-97) % ABG Base Excess mmol/L Yandel Test FiO2 % Sodium 143 (137-145) mmol/L Potassium 3.9 (3.5-5.1) mmol/L Chloride 108 H (98-107) mmol/L Carbon Dioxide 22 (22-30) mmol/L Anion Gap 13 mmol/L BUN 50 H (7-17) mg/dL Creatinine 1.00 (0.52-1.04) mg/dL Est GFR (CKD-EPI)AfAm 67 (>60 ml/min/1.73 sqM) Est GFR (CKD-EPI)NonAf 58 (>60 ml/min/1.73 sqM) Glucose 321 H (74-99) mg/dL POC Glucose (mg/dL) (75-99) mg/dL POC Glu Court Manager ID Plasma Lactic Acid Davey 1.3 (0.7-2.0) mmol/L Calcium 9.1 (8.4-10.2) mg/dL Ionized Calcium David 4.9 (4.5-5.3) mg/dL Magnesium 2.1 (1.6-2.3) mg/dL Total Bilirubin 0.8 (0.2-1.3) mg/dL AST 84 H (14-36) U/L ALT 31 (4-34) U/L Alkaline Phosphatase 50 (38-126) U/L Troponin I (0.000-0.034) ng/mL C-Reactive Protein 334.4 H (<10.0) mg/L Total Protein 6.7 (6.3-8.2) g/dL Albumin 3.6 (3.5-5.0) g/dL Lipase 102 (23-300) U/L 06/12/20 Range/Units 14:21 WBC (3.8-10.6) k/uL RBC (3.80-5.40) m/uL Hgb (11.4-16.0) gm/dL Hct (34.0-46.0) % MCV (80.0-100.0) fL MCH (25.0-35.0) pg MCHC (31.0-37.0) g/dL RDW (11.5-15.5) % Plt Count (150-450) k/uL MPV Neutrophils % % Lymphocytes % % Monocytes % % Eosinophils % % Basophils % % Neutrophils # (1.3-7.7) k/uL Lymphocytes # (1.0-4.8) k/uL Monocytes # (0-1.0) k/uL Eosinophils # (0-0.7) k/uL Basophils # (0-0.2) k/uL PT (9.0-12.0) sec INR (<1.2) APTT (22.0-30.0) sec Sample Site ABG pH (7.35-7.45) ABG pCO2 (35-45) mmHg ABG pO2 (83-108) mmHg ABG HCO3 (21-25) mmol/L ABG Total CO2 (19-24) mmol/L ABG O2 Saturation (94-97) % ABG Base Excess mmol/L Yandel Test FiO2 % Sodium (137-145) mmol/L Potassium (3.5-5.1) mmol/L Chloride (98-107) mmol/L Carbon Dioxide (22-30) mmol/L Anion Gap mmol/L BUN (7-17) mg/dL Creatinine (0.52-1.04) mg/dL Est GFR (CKD-EPI)AfAm (>60 ml/min/1.73 sqM) Est GFR (CKD-EPI)NonAf (>60 ml/min/1.73 sqM) Glucose (74-99) mg/dL POC Glucose (mg/dL) (75-99) mg/dL POC Glu Court Manager ID Plasma Lactic Acid Davey (0.7-2.0) mmol/L Calcium (8.4-10.2) mg/dL Ionized Calcium David (4.5-5.3) mg/dL Magnesium (1.6-2.3) mg/dL Total Bilirubin (0.2-1.3) mg/dL AST (14-36) U/L ALT (4-34) U/L Alkaline Phosphatase (38-126) U/L Troponin I 0.104 H* (0.000-0.034) ng/mL C-Reactive Protein (<10.0) mg/L Total Protein (6.3-8.2) g/dL Albumin (3.5-5.0) g/dL Lipase (23-300) U/L Critical Care Time Critical Care Time: Yes Total Critical Care Time: 33 Disposition Clinical Impression: COVID-19, Hypoxia Disposition: ADMITTED IP TO THIS HOSP Condition: Critical Referrals: Heriberot Eubanks MD [Primary Care Provider] - 1-2 days Decision Time: 15:54
[2020-06-12 14:24] LABS: ABG Base Excess -1.5 mmol/L; ABG HCO3 23 mmol/L (21-25); ABG Oxygen Saturation 94.2 % (94-97); ABG PCO2 32 mmHg (35-45); ABG PH 7.45 (7.35-7.45); ABG PO2 79 mmHg (83-108); ABG TCO2 24 mmol/L (19-24); Allen Test Performed? Yes
[2020-06-12 14:31] LABS: Basophils % (A) 1 %; Eosinophils % (A) 0 %; HCT 35.4 % (34.0-46.0); HGB 11.8 gm/dL (11.4-16.0); Lymphocytes # (A) 0.6 k/uL (1.0-4.8); Lymphocytes % (A) 8 %; MCHC 33.4 g/dL (31.0-37.0); MCV 89.7 fL (80.0-100.0); Mean Platelet Volume 7.5; Monocytes # (A) 0.3 k/uL (0-1.0); Monocytes % (A) 4 %; Neutrophils # (A) 6.3 k/uL (1.3-7.7); Neutrophils % (A) 86 %; RBC 3.94 m/uL (3.80-5.40); RDW 14.1 % (11.5-15.5); WBC 7.3 k/uL (3.8-10.6)
[2020-06-12 14:35] LABS: Platelet Count 357 k/uL (150-450)
[2020-06-12 14:43] LABS: INR 0.9 (<1.2); Prothrombin Time 9.5 sec (9.0-12.0)
[2020-06-12 14:55] LABS: Ionized Calcium 4.9 mg/dL (4.5-5.3)
[2020-06-12 15:06] LABS: Albumin 3.6 g/dL (3.5-5.0); Calcium 9.1 mg/dL (8.4-10.2); Total Bilirubin 0.8 mg/dL (0.2-1.3); Total Protein 6.7 g/dL (6.3-8.2)
[2020-06-12 15:20] LABS: Magnesium 2.1 mg/dL (1.6-2.3); Potassium 3.9 mmol/L (3.5-5.1)
--- NOTE | 2020-06-12 15:20 | CT ---
EXAM: CT brain wo con CLINICAL HISTORY: Altered mental status. COMPARISON: 03/23/2020 TECHNIQUE: Contiguous axial noncontrast images of the brain were obtained. Coronal and sagittal refor mats were generated and reviewed. Automated dose control was used for this exam. FINDINGS: There is no evidence for intracranial hemorrhage, mass effect or midline shift. The white matter is g rossly preserved. Ventricular size and configuration is within normal limits for degree of parenchymal volume. The paranasal sinuses are clear. The mastoid air cells are clear. No evidence for calvarial fracture. IMPRESSION: No acute intracranial abnormality.
--- NOTE | 2020-06-12 15:31 | CT ---
EXAM: CTA HEAD AND NECK INDICATION: Acute neurologic deficit. COMPARISON: None. TECHNIQUE: CTA of the head and neck were performed with multiplanar and MIP reformats generated and r emilyiewed. Stenosis evaluation is based on [place] Symptomatic Carotid Endarterectomy Trial ([facility]). 100 mL Isovue-370 intravenous contrast was administered. FINDINGS: There is suboptimal contrast opacification of the carotid arteries, limiting evaluation. There is normal three-vessel branching of the aorta. There is moderate atherosclerotic plaque at the right carotid bulb with approximately 50% stenosis of the right proximal ICA. Otherwise no evidence of high-grade stenosis, dissection or aneurysm seen in the remaining bilateral common carotid, cervical internal carotid and vertebral arteries. There is no evidence of high-grade stenosis, dissection or aneurysm in the intracranial internal brasher tid arteries, anterior, middle and posterior cerebral arteries as well as in the imaged vertebral and basilar arteries. The communicating arteries are unremarkable. The visualized upper lungs demonstrate diffuse marked patchy ground glass opacities. IMPRESSION: No acute abnormality of the CTA head/neck, within the limitations of the study. Moderate stenosis of the right proximal ICA. Diffuse patchy groundglass opacities, suggestive of Covid pneumonia.
[2020-06-12 15:32] LABS: C Reactive Protein 334.4 mg/L (<10.0)
--- NOTE | 2020-06-12 15:38 | CT ---
EXAMINATION TYPE: CT angio chest DATE OF EXAM: 06/12/2020 2:59 PM COMPARISON: Same-day radiograph. HISTORY: elevated d dimer CT DLP: 482.5 mGycm Automated exposure control for dose reduction was used. CONTRAST: CTA scan of the thorax is performed with IV Contrast, patient injected with 100 mL of Isovue 370, pul monary embolism protocol. MIP images are created and reviewed. FINDINGS: LUNGS: There is bilateral diffuse marked patchy groundglass opacities with consolidation. There is no pleural effusion or pneumothorax seen. The visualized tracheobronchial tree is patent. MEDIASTINUM: There is satisfactory enhancement of the pulmonary artery to the level of the proximal s egmental branches. No CT evidence for pulmonary embolism. There are no greater than 1 cm hilar or me diastinal lymph nodes. No pericardial effusion is seen. OTHER: No additional significant abnormality is seen. IMPRESSION: BILATERAL DIFFUSE PATCHY GROUNDGLASS OPACITIES WITH CONSOLIDATION AND SUGGESTIVE OF COVID PNEUMONIA. NO ACUTE PE.
--- NOTE | 2020-06-12 15:39 | XR ---
EXAMINATION TYPE: XR chest 1V portable DATE OF EXAM: 06/12/2020 COMPARISON: 06/07/2020. HISTORY: Altered mental status and Covid positive. TECHNIQUE: Single frontal view of the chest is obtained. FINDINGS: There is interval bilateral diffuse patchy opacities. No pleural effusion, or pneumothorax seen. The cardiac silhouette size is within normal limits. The osseous structures are intact. IMPRESSION: Interval bilateral diffuse infiltrates.
[2020-06-12] MEDS ORDERED: NALOXONE 0.4 MG/ML 1 ML VIAL IV PRN (15:49)
[2020-06-12] MEDS ORDERED: DEXAMETHASONE SOD PHOSPHATE 10 MG/ML 1 ML VIAL IV STA (15:49)
[2020-06-12] MEDS: CHOLECALCIFEROL 25 MCG (1000 IU) TABLET PO SCH (16:36)
[2020-06-12] MEDS: SODIUM CHLORIDE 0.9% 1,000 ML IV SCH (17:35)
[2020-06-12] MEDS ORDERED: LORazepam 2 MG/ML INJ IV STA (18:19)
--- NOTE | 2020-06-12 18:55 | P.HPIM ---
History of Present Illness H&P Date: 06/12/20 Chief Complaint: Short of breath History of presenting complaint: This is a 69-year-old patient who follows with Dr. blake . Patient was last seen in the ER about 5 days ago. She then had an having respiratory symptoms including cough for about 2 or 3 weeks prior to that. On this presentation is patient is altered sense. She was last seen normal at home on Sunday. EMS was called out and they found the patient to be hypoxic with 46%. Patient was ventilated with a bag valve and pulse oxygenation improved. He was placed on a nonrebreather and brought here. Here patient's problem of BiPAP. And is somewhat delirious. Not able to give any history. Patient chronic stable medical conditions include diabetes, hypertension, hyperlipidemia, history of breast cancer with right mastectomy. No family members currently present. Review of systems: Cannot be obtained as patient other delirious Past medical history to include: Breast cancer with mastectomy, diabetes, hypertension, hyperlipidemia, anxiety Social history: Former smoker. Lives alone. Family history: Patient cannot tell Physical examination: VITAL SIGNS: 98.3, 104, 32, 1 45/86, 86% on 15 L nasal cannula GENERAL: BMI 32.7, with the BiPAP, sitting up on the bed slightly restless, not able to answer questions. EYES: Pupils equal. Conjunctiva normal. HEENT: External appearance of nose and ears normal, oral cavity grossly normal. NECK: JVD unable to assess; masses not palpable. HEART: First and second heart sounds are normal; no edema. LUNGS:[ Respiratory rate increased, using accessory muscles. ABDOMEN: Soft, nontender, liver spleen not palpable, no masses palpable. PSYCH: Patient's other delirious not able to answer questionsl. NEUROLOGICAL: [Cranial nerves grossly intact; no facial asymmetry, moving all 4 limbs LYMPHATICS: No lymph nodes palpable in the axilla and neck INVESTIGATIONS, reviewed in the clinical context: WBC 7.3 hemoglobin 11.8 platelets 357 ABG: PH 7.45 pCO2 32, pO2 79 Potassium 3.9 creatinine 1.0 blood glucose 321 Troponin I 0.104 CRP 334 EKG tracing personally reviewed by me-normal sinus rhythm, nonspecific ST segment changes Chest x-ray film personally reviewed by me-bilateral infiltrate severe CT angio chest: Bilateral diffuse patchy groundglass opacities and consolidation. CTA head and neck: Negative Computed tomography scan of the brain: Negative Assessment and plan: -Acute severe bilateral COVID 19 pneumonia, diagnosed 5 days ago, with symptoms present 2-3 weeks prior to that. Patient be placed on IV dexamethasone, subcu Lovenox, vitamin C vitamin D Pepcid zinc. Consultation to pulmonary -Acute severe hypoxic respiratory failure, secondary to COVID 19 pneumonia Requiring BiPAP. -Acute delirium and acute metabolic encephalopathy Follow closely. -Diabetes mellitus type 2 on oral hypoglycemic Hold off oral hypoglycemic. Follow Accu-Cheks. -Essential hypertension Patient may not be able to tolerate oral medications. We will start Catapres patch 0.1 -Diabetic peripheral neuropathy Resume gabapentin when able to tolerate by mouth -Hyperlipidemia Resume Mevacor unable to tolerate by mouth Prognosis guarded. 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 Past Medical History Past Medical History: Cancer, Diabetes Mellitus, Hyperlipidemia, Hypertension Additional Past Medical History / Comment(s): breast cancer History of Any Multi-Drug Resistant Organisms: None Reported Past Surgical History: Breast Surgery Additional Past Surgical History / Comment(s): right mastectomy Past Psychological History: Anxiety Smoking Status: Former smoker Past Alcohol Use History: Occasional Past Drug Use History: None Reported Medications and Allergies Home Medications Medication Instructions Recorded Confirmed Type Ascorbic Acid [Vitamin C] 1,000 mg PO DAILY 03/23/20 06/12/20 History Cholecalciferol [Vitamin D3 (25 25 mcg PO DAILY 03/23/20 06/12/20 History Mcg = 1000 Iu)] Cinnamon Bark [Cinnamon] 500 mg PO DAILY 03/23/20 06/12/20 History Gabapentin 300 mg PO DAILY@1200 03/23/20 06/12/20 History Gabapentin 600 mg PO BID 03/23/20 06/12/20 History Garlic 1 tab PO DAILY 03/23/20 06/12/20 History Glimepiride [Amaryl] 1.5 mg PO HS 03/23/20 06/12/20 History Glimepiride [Amaryl] 2 mg PO DAILY 03/23/20 06/12/20 History Lisinopril-Hctz 20-25 mg 1 tab PO DAILY 03/23/20 06/12/20 History [Zestoretic 20-25] Lovastatin [Mevacor] 20 mg PO HS 03/23/20 06/12/20 History [place]-3 Acid Ethyl Esters [Lovaza] 1 gm PO BID 03/23/20 06/12/20 History Sertraline [Zoloft] 50 mg PO DAILY 03/23/20 06/12/20 History Vitamin A 120 Mcg 120 mcg PO DAILY 03/23/20 06/12/20 History amLODIPine [Norvasc] 5 mg PO BID 03/23/20 06/12/20 History metFORMIN HCL ER [Glucophage Xr] 750 mg PO DAILY 03/23/20 06/12/20 History Coconut Oil 1 cap PO DAILY 04/14/20 06/12/20 History Cranberry Fruit Extract [Cranberry] 500 mg PO DAILY 04/14/20 06/12/20 History Lysine HCl [l-Lysine] 1,000 mg PO DAILY 04/14/20 06/12/20 History Tart Doll Extract 1 cap PO DAILY 04/14/20 06/12/20 History Turmeric/Turmeric Root Extract 1 cap PO DAILY 04/14/20 06/12/20 History [Turmeric 450-50 mg Capsule] Acetaminophen Tab [Tylenol Tab] 1,000 mg PO Q6H PRN 06/12/20 06/12/20 History Famotidine 20 mg PO BID PRN 06/12/20 06/12/20 History Allergies Allergy/AdvReac Type Severity Reaction Status Date / Time amoxicillin Allergy Unknown Verified 06/12/20 16:06 Penicillins Allergy Unknown Verified 06/12/20 16:06 phenytoin [From Dilantin] Allergy Unknown Verified 06/12/20 16:06 Sulfa (Sulfonamide Allergy Unknown Verified 06/12/20 16:06 Antibiotics) Physical Exam Vitals: Vital Signs Temp Pulse Resp BP Pulse Ox 06/12/20 17:36 95 30 H 152/87 97 06/12/20 15:58 104 H 32 H 152/87 98 06/12/20 14:09 100 32 H 148/77 95 06/12/20 14:08 32 H 06/12/20 14:02 98.3 F 104 H 32 H 145/86 86 L Intake and Output 06/12/20 06/12/20 06/12/20 06:59 14:59 22:59 Other: Weight 89.267 kg Results CBC & Chem 7: 06/12/20 14:21 06/12/20 14:21 Labs: Abnormal Lab Results - Last 24 Hours (Table) 06/12/20 06/12/20 06/12/20 Range/Units 14:01 14:16 14: Lymphocytes # 0.6 L (1.0-4.8) k/uL ABG pCO2 32 L (35-45) mmHg ABG pO2 79 L (83-108) mmHg Chloride (98-107) mmol/L BUN (7-17) mg/dL Glucose (74-99) mg/dL POC Glucose (mg/dL) 346 H (75-99) mg/dL AST (14-36) U/L Troponin I (0.000-0.034) ng/mL C-Reactive Protein (<10.0) mg/L 06/12/20 06/12/20 Range/Units 14:21 14:21 Lymphocytes # (1.0-4.8) k/uL ABG pCO2 (35-45) mmHg ABG pO2 (83-108) mmHg Chloride 108 H (98-107) mmol/L BUN 50 H (7-17) mg/dL Glucose 321 H (74-99) mg/dL POC Glucose (mg/dL) (75-99) mg/dL AST 84 H (14-36) U/L Troponin I 0.104 H* (0.000-0.034) ng/mL C-Reactive Protein 334.4 H (<10.0) mg/L
[2020-06-12] MEDS ORDERED: FLUMAZENIL 0.1 MG/ML 5 ML VIAL IVP STA (19:14)
[2020-06-12 19:32] LABS: ABG Base Excess 0.6 mmol/L; ABG HCO3 26 mmol/L (21-25); ABG Oxygen Saturation 90.8 % (94-97); ABG PCO2 47 mmHg (35-45); ABG PH 7.35 (7.35-7.45); ABG PO2 71 mmHg (83-108); ABG TCO2 28 mmol/L (19-24); Allen Test Performed? Yes
[2020-06-12] MEDS ORDERED: cloNIDine 0.1 MG/24HR PATCH TRANSDERM SCH (20:00)
[2020-06-12] MEDS: INSULIN DETEMIR (LEVEMIR) 100 UNIT/ML SYR SQ SCH (20:23)
[2020-06-12 20:24] LABS: Glucose,Whole Blood 312 mg/dL (75-99)
[2020-06-12] MEDS: GABAPENTIN 300 MG CAP PO SCH (22:06)
[2020-06-12] MEDS: ATORVASTATIN 10 MG TAB PO SCH (22:06)
[2020-06-12] MEDS: INSULIN ASPART (NovoLOG) 100 UNIT/ML VIAL SQ SCH (22:09)
[2020-06-12] MEDS: amLODIPine 5 MG TAB PO SCH (22:09)
[2020-06-12] MEDS: FAMOTIDINE 20 MG/2 ML VIAL IV SCH (23:07)
[2020-06-13] MEDS: SODIUM CHLORIDE 0.9% 1,000 ML IV SCH ×3 (03:00→22:41)
[2020-06-13 08:20] LABS: Allen Test Performed? Yes
[2020-06-13 08:22] LABS: ABG Base Excess 2.3 mmol/L; ABG HCO3 27 mmol/L (21-25); ABG PCO2 45 mmHg (35-45); ABG PH 7.39 (7.35-7.45); ABG PO2 68 mmHg (83-108)
[2020-06-13] MEDS ORDERED: PANTOPRAZOLE 40 MG/10 ML VIAL IV SCH (09:00)
[2020-06-13] MEDS ORDERED: TOCILIZUMAB 720 MG in SODIUM CHLORIDE 0.9% 64 ML IV ONE (11:00)
--- NOTE | 2020-06-13 11:16 | P.CNPUL ---
History of Present Illness Consult date: 06/13/20 Requesting physician: Armond Constantino Reason for consult: dyspnea, hypoxemia, pneumonia, abnormal CXR/CT Chief complaint: Acute hypoxic respiratory failure related to COVID 19 pneumonia History of present illness: 69-year-old white female patient who presented to the emergency department on 06/12/2020 at 1400 in the afternoon with complaints of shortness of breath, and her first onset of symptoms was approximately 2-3 weeks ago. She tested positive for COVID 19 on 06/07/2020. Patient was seen in the emergency department at that time, and was having symptoms of fatigue, shortness of breath and cough. She does have multiple comorbidities including hypertension, diabetes mellitus, dyslipidemia, history of breast cancer, patient is a former smoker. Was outside the window for monoclonal antibody, she was sent home on Decadron, and vitamins. Chest x-ray at that time showed interstitial infiltrates. Patient returned with worsening symptoms, chest x-ray on the 2020 showed interval bilateral diffuse infiltrates. In addition patient was confused, on arrival of the EMS to the scene patient was severely hypoxemic with a pulse ox of only 46%. She was bagged valve ventilated with improvement in her oxygen, she was placed on BiPAP support. Brain CT showed no acute intracranial abnormality. Angiography CT showed no acute abnormality of the head/neck, and a moderate stenosis of the right proximal ICA. CBC was positive for lymphopenia with lymphocyte count 0.6, d-dimer was 1.36, sodium is 143, potassium is 3.9, chloride is 108, CO2 22, BUN is 50, creatinine is 1, glucose level was 321, plasma lactic acid is 1.3, AST was 84, ALT was 31, alk phos was 50, troponin was 0.104, CRP was 334. Patient was started on IV Decadron in the emergency department, she remains on BiPAP support, currently at pressures of 12 and 6 and FiO2 100%, she appears to have increased work of breathing, she is not able to answer questions related to dyspnea, repeat blood gas was done showing pO2 of 68, pCO2 45, pH of 7.39 and subsequently her BiPAP settings were adjusted to 14/7 and FiO2 100%, patient is awaiting a bed in the intensive care unit, she is awake and alert, she did answer some simple questions yes or no for me while on BiPAP support, we'll start the patient on IL-6 MAB, Tocilizumab. We'll continue to closely follow her clinical course, continues to deteriorate patient required intubation and placement on mechanical ventilatory support Review of Systems All systems: negative Constitutional: Denies chills, Denies fever Eyes: denies blurred vision, denies pain Ears, nose, mouth and throat: Denies headache, Denies sore throat Cardiovascular: Denies chest pain, Denies shortness of breath Respiratory: Reports dyspnea, Denies cough Gastrointestinal: Denies abdominal pain, Denies diarrhea, Denies nausea, Denies vomiting Genitourinary: Denies dysuria, Denies hematuria Musculoskeletal: Denies myalgias Integumentary: Denies pruritus, Denies rash Neurological: Denies numbness, Denies weakness Psychiatric: Denies anxiety, Denies depression Endocrine: Denies fatigue, Denies weight change Past Medical History Past Medical History: Cancer, Diabetes Mellitus, Hyperlipidemia, Hypertension Additional Past Medical History / Comment(s): breast cancer History of Any Multi-Drug Resistant Organisms: None Reported Past Surgical History: Breast Surgery Additional Past Surgical History / Comment(s): right mastectomy Past Psychological History: Anxiety Smoking Status: Former smoker Past Alcohol Use History: Occasional Past Drug Use History: None Reported Medications and Allergies Home Medications Medication Instructions Recorded Confirmed Type Ascorbic Acid [Vitamin C] 1,000 mg PO DAILY 03/23/20 06/12/20 History Cholecalciferol [Vitamin D3 (25 25 mcg PO DAILY 03/23/20 06/12/20 History Mcg = 1000 Iu)] Cinnamon Bark [Cinnamon] 500 mg PO DAILY 03/23/20 06/12/20 History Gabapentin 300 mg PO DAILY@1200 03/23/20 06/12/20 History Gabapentin 600 mg PO BID 03/23/20 06/12/20 History Garlic 1 tab PO DAILY 03/23/20 06/12/20 History Glimepiride [Amaryl] 1.5 mg PO HS 03/23/20 06/12/20 History Glimepiride [Amaryl] 2 mg PO DAILY 03/23/20 06/12/20 History Lisinopril-Hctz 20-25 mg 1 tab PO DAILY 03/23/20 06/12/20 History [Zestoretic 20-25] Lovastatin [Mevacor] 20 mg PO HS 03/23/20 06/12/20 History [place]-3 Acid Ethyl Esters [Lovaza] 1 gm PO BID 03/23/20 06/12/20 History Sertraline [Zoloft] 50 mg PO DAILY 03/23/20 06/12/20 History Vitamin A 120 Mcg 120 mcg PO DAILY 03/23/20 06/12/20 History amLODIPine [Norvasc] 5 mg PO BID 03/23/20 06/12/20 History metFORMIN HCL ER [Glucophage Xr] 750 mg PO DAILY 03/23/20 06/12/20 History Coconut Oil 1 cap PO DAILY 04/14/20 06/12/20 History Cranberry Fruit Extract [Cranberry] 500 mg PO DAILY 04/14/20 06/12/20 History Lysine HCl [l-Lysine] 1,000 mg PO DAILY 04/14/20 06/12/20 History Tart Doll Extract 1 cap PO DAILY 04/14/20 06/12/20 History Turmeric/Turmeric Root Extract 1 cap PO DAILY 04/14/20 06/12/20 History [Turmeric 450-50 mg Capsule] Acetaminophen Tab [Tylenol Tab] 1,000 mg PO Q6H PRN 06/12/20 06/12/20 History Famotidine 20 mg PO BID PRN 06/12/20 06/12/20 History Allergies Allergy/AdvReac Type Severity Reaction Status Date / Time amoxicillin Allergy Unknown Verified 06/12/20 16:06 Penicillins Allergy Unknown Verified 06/12/20 16:06 phenytoin [From Dilantin] Allergy Unknown Verified 06/12/20 16:06 Sulfa (Sulfonamide Allergy Unknown Verified 06/12/20 16:06 Antibiotics) Physical Exam Vitals: Vital Signs Temp Pulse Resp BP Pulse Ox 06/13/20 09:27 103 H 28 H 121/76 93 L 06/13/20 08:54 94 28 H 121/76 93 L 06/13/20 07:58 102 H 28 H 140/72 94 L 06/13/20 07:46 58 L 18 150/82 97 06/13/20 07:31 99 26 H 140/70 92 L 06/13/20 05:32 105 H 18 141/63 94 L 06/13/20 03:58 109 H 34 H 129/67 91 L 06/13/20 02:00 106 H 33 H 142/72 93 L 06/13/20 00:00 94 L 06/12/20 23:01 108 H 32 H 94 L 06/12/20 23:00 116 H 36 H 138/73 95 06/12/20 22:10 114 H 34 H 132/70 93 L 06/12/20 20:21 96 30 H 155/89 92 L 06/12/20 19:06 91 L 06/12/20 17:36 95 30 H 152/87 97 06/12/20 15:58 104 H 32 H 152/87 98 06/12/20 14:09 100 32 H 148/77 95 06/12/20 14:08 32 H 06/12/20 14:02 98.3 F 104 H 32 H 145/86 86 L Intake and Output 06/12/20 06/13/20 06/13/20 22:59 06:59 14:59 Intake Total 300 Output Total 1050 Balance -750 Intake: Intake, IV Titration 300 Amount Sodium Chloride 0.9% 1, 300 000 ml @ 100 mls/hr IV . Q10H DANITA Rx#:[id number] Output: Urine 1050 Other: # Voids 1 GENERAL EXAM:69-year-old white female on BiPAP support, currently with 14 and 7 and FiO2 100%, appears fatigued, short of breath, pulse ox is around 93% HEAD: Normocephalic/atraumatic. EYES: Normal reaction of pupils, equal size. Conjunctiva pink, sclera white. NOSE: Clear with pink turbinates. THROAT: No erythema or exudates. NECK: No masses, no JVD, no thyroid enlargement, no adenopathy. CHEST: No chest wall deformity. Symmetrical expansion. LUNGS: Equal air entry with diffuse crackles CVS: Regular rate and rhythm, normal S1 and S2, no gallops, no murmurs, no rubs ABDOMEN: Soft, nontender. No hepatosplenomegaly, normal bowel sounds, no guarding or rigidity. EXTREMITIES: No clubbing, no edema, no cyanosis, 2+ pulses and upper and lower extremities. MUSCULOSKELETAL: Muscle strength and tone normal. SPINE: No scoliosis or deformity SKIN: No rashes CENTRAL NERVOUS SYSTEM: Alert and oriented -1. No focal deficits, tone is normal in all 4 extremities. Unable to assess orientation at this time patient on BiPAP support, unable to answer questions related to increased work of breathing Results - Laboratory Findings CBC and BMP: 06/12/20 14:21 06/12/20 14:21 ABG ABG pH 7.39 (7.35-7.45) 06/13/20 07:53 ABG pCO2 45 mmHg (35-45) 06/13/20 07:53 ABG pO2 68 mmHg (83-108) L 06/13/20 07:53 ABG O2 Saturation 94.0 % (94-97) 06/13/20 07:53 PT/INR, D-dimer PT 9.5 sec (9.0-12.0) 06/12/20 14:21 INR 0.9 (<1.2) 06/12/20 14: D-Dimer 2.13 mg/L FEU (<0.60) H 06/13/20 05:30 Abnormal lab findings: Abnormal Labs 06/12/20 06/12/20 06/12/20 14:01 14:16 14:21 Lymphocytes # 0.6 L D-Dimer ABG pCO2 32 L ABG pO2 79 L ABG HCO3 ABG Total CO2 ABG O2 Saturation Chloride BUN Glucose POC Glucose (mg/dL) 346 H AST Troponin I C-Reactive Protein 06/12/20 06/12/20 06/12/20 14:21 14:21 14:30 Lymphocytes # D-Dimer 1.36 H ABG pCO2 ABG pO2 ABG HCO3 ABG Total CO2 ABG O2 Saturation Chloride 108 H BUN 50 H Glucose 321 H POC Glucose (mg/dL) AST 84 H Troponin I 0.104 H* C-Reactive Protein 334.4 H 06/12/20 06/12/20 06/13/20 19:28 20:22 05:30 Lymphocytes # D-Dimer 2.13 H ABG pCO2 47 H ABG pO2 71 L ABG HCO3 26 H ABG Total CO2 28 H ABG O2 Saturation 90.8 L Chloride BUN Glucose POC Glucose (mg/dL) 312 H AST Troponin I C-Reactive Protein 06/13/20 06/13/20 05:30 07:53 Lymphocytes # D-Dimer ABG pCO2 ABG pO2 68 L ABG HCO3 27 H ABG Total CO2 ABG O2 Saturation Chloride BUN Glucose POC Glucose (mg/dL) AST Troponin I C-Reactive Protein 356.1 H - Diagnostic Findings Chest x-ray: report reviewed, image reviewed CT scan - chest: report reviewed, image reviewed Additional studies: Brain CT, CTA chest, EKG, angiography CT of the brain Assessment and Plan Plan: Assessment: #1. Acute hypoxic respiratory failure related to acute COVID 19 pneumonia, with onset of symptoms 3 weeks ago, tested positive in the emergency department on 06/07/2020, was outside the window for BAM, was sent home on Decadron and vitamins. Returned for reevaluation worsening symptoms and worsening hypoxia. Qualifies for Tocilizumab #2. Increased inflammatory markers and d-dimer related to the above #3. Troponin leak, we'll follow serial troponins #4. Altered mental status, brain CT and angiogram of the brain negative, possibly related to metabolic encephalopathy #5. Aphasia, rule out possibility of a stroke, neurology consultation has been requested, patient was not a candidate for TPA #6. Hypertension #7. Hyperlipidemia #8. Diabetes multiple's type II #9. History of breast cancer with history of right mastectomy #10. History of anxiety #11. Former smoker Plan: BiPAP settings have been adjusted, patient is awake and alert, she is not able to give much history related to increased work of breathing, transfer to the intensive care unit, if continues to develop worsening respiratory fatigue she will be intubated and placed on mechanical ventilator, we'll start the patient on [place]-6 MAB, Tocilizumab, continue Decadron, Lovenox 40 mg daily, continue Pepcid, continue IV fluids, will follow her clinical course closely, obtain follow-up troponins, LDH, ferritin, prognosis is guarded. I performed a history & physical examination of the patient and discussed their management with my nurse practitioner, Kimmy Conn. I reviewed the nurse practitioner's note and agree with the documented findings and plan of care. Lung sounds are positive for diminished breath sounds. The findings and the impression was discussed with the patient. I attest to the documentation by the nurse practitioner. Time with Patient: Greater than 30
[2020-06-13] MEDS: amLODIPine 5 MG TAB PO SCH ×3 (12:36→21:58)
[2020-06-13] MEDS: SERTRALINE 50 MG TAB PO SCH ×2 (12:36→12:47)
[2020-06-13] MEDS: ASCORBIC ACID 500 MG TAB PO SCH (12:36)
[2020-06-13] MEDS: CHOLECALCIFEROL 25 MCG (1000 IU) TABLET PO SCH ×2 (12:36→12:45)
[2020-06-13] MEDS: GABAPENTIN 300 MG CAP PO SCH ×3 (12:36→21:59)
[2020-06-13] MEDS: ENOXAPARIN 40 MG/0.4 ML SYRINGE SQ SCH (12:36)
[2020-06-13] MEDS: FAMOTIDINE 20 MG/2 ML VIAL IV SCH ×2 (12:37→21:47)
[2020-06-13] MEDS: LISINOPRIL-HCTZ 20-25 MG 1 EACH TAB PO SCH (12:47)
--- NOTE | 2020-06-13 15:50 | P.CNNES ---
History of Present Illness Consult date: 06/13/20 Chief complaint: shortness of breath History of Present Illness: The patient is a 69-year-old female who is seen in neurologic consulta tion on June 13, 2020 via teleneurology. The patient is unable to provide any history. History is obtained entirely from the chart. The patient reportedly presented to [facility] emergency department after EMS was sent to her home because she had not been heard from since Sunday of this past week. At the home the patient was found to be severely hypoxic with a PO2 of 46%. The patient had been previously diagnosed with Covid 19 infection. She had been seen in the emergency department several days prior, was worked up and sent home with medications. The patient is being seen in neurologic consultation because of mental status changes and possible aphasia. Past Medical History Past Medical History: Cancer, Diabetes Mellitus, Hyperlipidemia, Hypertension Additional Past Medical History / Comment(s): breast cancer History of Any Multi-Drug Resistant Organisms: None Reported Past Surgical History: Breast Surgery Additional Past Surgical History / Comment(s): right mastectomy Past Psychological History: Anxiety Smoking Status: Former smoker Past Alcohol Use History: Occasional Past Drug Use History: None Reported Medications and Allergies Home Medications Medication Instructions Recorded Confirmed Type Ascorbic Acid [Vitamin C] 1,000 mg PO DAILY 03/23/20 06/12/20 History Cholecalciferol [Vitamin D3 (25 25 mcg PO DAILY 03/23/20 06/12/20 History Mcg = 1000 Iu)] Cinnamon Bark [Cinnamon] 500 mg PO DAILY 03/23/20 06/12/20 History Gabapentin 300 mg PO DAILY@1200 03/23/20 06/12/20 History Gabapentin 600 mg PO BID 03/23/20 06/12/20 History Garlic 1 tab PO DAILY 03/23/20 06/12/20 History Glimepiride [Amaryl] 1.5 mg PO HS 03/23/20 06/12/20 History Glimepiride [Amaryl] 2 mg PO DAILY 03/23/20 06/12/20 History Lisinopril-Hctz 20-25 mg 1 tab PO DAILY 03/23/20 06/12/20 History [Zestoretic 20-25] Lovastatin [Mevacor] 20 mg PO HS 03/23/20 06/12/20 History Theriot-3 Acid Ethyl Esters [Lovaza] 1 gm PO BID 03/23/20 06/12/20 History Sertraline [Zoloft] 50 mg PO DAILY 03/23/20 06/12/20 History Vitamin A 120 Mcg 120 mcg PO DAILY 03/23/20 06/12/20 History amLODIPine [Norvasc] 5 mg PO BID 03/23/20 06/12/20 History metFORMIN HCL ER [Glucophage Xr] 750 mg PO DAILY 03/23/20 06/12/20 History Coconut Oil 1 cap PO DAILY 04/14/20 06/12/20 History Cranberry Fruit Extract [Cranberry] 500 mg PO DAILY 04/14/20 06/12/20 History Lysine HCl [l-Lysine] 1,000 mg PO DAILY 04/14/20 06/12/20 History Tart Doll Extract 1 cap PO DAILY 04/14/20 06/12/20 History Turmeric/Turmeric Root Extract 1 cap PO DAILY 04/14/20 06/12/20 History [Turmeric 450-50 mg Capsule] Acetaminophen Tab [Tylenol Tab] 1,000 mg PO Q6H PRN 06/12/20 06/12/20 History Famotidine 20 mg PO BID PRN 06/12/20 06/12/20 History Allergies Allergy/AdvReac Type Severity Reaction Status Date / Time amoxicillin Allergy Unknown Verified 06/12/20 16:06 Penicillins Allergy Unknown Verified 06/12/20 16:06 phenytoin [From Dilantin] Allergy Unknown Verified 06/12/20 16:06 Sulfa (Sulfonamide Allergy Unknown Verified 06/12/20 16:06 Antibiotics) Physical Examination - Vital Signs Vital Signs: Vital Signs Temp Pulse Resp BP Pulse Ox 06/13/20 12:53 93 28 H 132/72 93 L 06/13/20 12:35 96 28 H 141/74 93 L 06/13/20 09:27 103 H 28 H 121/76 93 L 06/13/20 08:54 94 28 H 121/76 93 L 06/13/20 07:58 102 H 28 H 140/72 94 L 06/13/20 07:46 58 L 18 150/82 97 06/13/20 07:31 99 26 H 140/70 92 L 06/13/20 05:32 105 H 18 141/63 94 L 06/13/20 03:58 109 H 34 H 129/67 91 L 06/13/20 02:00 106 H 33 H 142/72 93 L 06/13/20 00:00 94 L 06/12/20 23:01 108 H 32 H 94 L 06/12/20 23:00 116 H 36 H 138/73 95 06/12/20 22:10 114 H 34 H 132/70 93 L 06/12/20 20:21 96 30 H 155/89 92 L 06/12/20 19:06 91 L 06/12/20 17:36 95 30 H 152/87 97 06/12/20 15:58 104 H 32 H 152/87 98 06/12/20 14:09 100 32 H 148/77 95 06/12/20 14:08 32 H 06/12/20 14:02 98.3 F 104 H 32 H 145/86 86 L Intake and Output 06/12/20 06/13/20 06/13/20 22:59 06:59 14:59 Intake Total 300 Output Total 1050 Balance -750 Intake: Intake, IV Titration 300 Amount Sodium Chloride 0.9% 1, 300 000 ml @ 100 mls/hr IV . Q10H [facility] Rx#:[id number] Output: Urine 1050 Other: # Voids 1 Gen.: The patient is reclining in the bed. She has a BiPAP mask in place. She is in moderate distress. HEENT: Head is atraumatic, normocephalic. Fundus not visualized. There is no scleral icterus. Mucous membranes cannot be assessed secondary to BiPAP mask Neck: Supple Heart: Regular rate and rhythm Lungs: Rhonchi throughout Extremities: Without edema Neurological examination Mental status: The patient is awake. Her eyes are open. There is visual tracking. She intermittently follow simple commands. She is crying. There are some moaning sounds but other than that, the patient is nonverbal. Cranial nerves: Pupils are equal and reactive. Extraocular movements are grossly intact Motor: The patient is moving all 4 extremities,L > R. Deep tendon reflexes: 2+/4+ throughout. Plantar response is flexor on the left. It is unable to be assessed on the right as the patient has her foot wedged and held against the footboard of the bed. Sensation: There is withdrawal of all 4 extremities, from noxious stimulation Results - Laboratory Findings CBC and BMP: 06/12/20 14:21 06/12/20 14:21 Abnormal Lab Findings: Abnormal Labs 06/12/20 06/12/20 06/12/20 14:01 14:16 14:21 Lymphocytes # 0.6 L D-Dimer ABG pCO2 32 L ABG pO2 79 L ABG HCO3 ABG Total CO2 ABG O2 Saturation Chloride BUN Glucose POC Glucose (mg/dL) 346 H AST Lactate Dehydrogenase Creatine Kinase Troponin I C-Reactive Protein 06/12/20 06/12/20 06/12/20 14:21 14:21 14:30 Lymphocytes # D-Dimer 1.36 H ABG pCO2 ABG pO2 ABG HCO3 ABG Total CO2 ABG O2 Saturation Chloride 108 H BUN 50 H Glucose 321 H POC Glucose (mg/dL) AST 84 H Lactate Dehydrogenase Creatine Kinase Troponin I 0.104 H* C-Reactive Protein 334.4 H 06/12/20 06/12/20 06/13/20 19:28 20:22 05:30 Lymphocytes # D-Dimer 2.13 H ABG pCO2 47 H ABG pO2 71 L ABG HCO3 26 H ABG Total CO2 28 H ABG O2 Saturation 90.8 L Chloride BUN Glucose POC Glucose (mg/dL) 312 H AST Lactate Dehydrogenase Creatine Kinase Troponin I C-Reactive Protein 06/13/20 06/13/20 06/13/20 05:30 07:53 11:33 Lymphocytes # D-Dimer ABG pCO2 ABG pO2 68 L ABG HCO3 27 H ABG Total CO2 ABG O2 Saturation Chloride BUN Glucose POC Glucose (mg/dL) AST Lactate Dehydrogenase 2713 H Creatine Kinase 226 H Troponin I C-Reactive Protein 356.1 H 06/13/20 11:33 Lymphocytes # D-Dimer ABG pCO2 ABG pO2 ABG HCO3 ABG Total CO2 ABG O2 Saturation Chloride BUN Glucose POC Glucose (mg/dL) AST Lactate Dehydrogenase Creatine Kinase Troponin I 0.190 H* C-Reactive Protein Assessment and Plan Assessment: 1. Acute encephalopathy with possible a aphasia, secondary to Covid 19 infection versus hypoxemia. Must rule out stroke and/or SANDBLAST CARVER infection 2. CT scan of brain was negative for acute infarct and hemorrhage 3. History of diabetes mellitus 4. History of hypertension 5. History of breast cancer Plan: 1. MRI of brain with and without gadolinium 2. Would recommend lumbar puncture to rule out SANDBLAST CARVER infection related to Covid 19 3. Consider speech therapy evaluation 4. Continue to closely monitor respiratory status 5. Your treatment of Covid [address] Brian Glover will assume neurologic coverage of this patient on Sunday, June 14, 2020. Thank you for allowing me to participate in her care. Time with Patient: Greater than 30 (spent 35 minutes with patient via teleneuro logy)
--- NOTE | 2020-06-13 16:49 | P.PN ---
Progress Note - Text Progress Note Date: 06/13/20 Chief Complaint: Short of breath History of presenting complaint: This is a 69-year-old patient who follows with Dr. blake . Patient was last seen in the ER about 5 days ago. She then had an having respiratory symptoms including cough for about 2 or 3 weeks prior to that. On this presentation is patient is altered sense. She was last seen normal at home on Sunday. EMS was called out and they found the patient to be hypoxic with 46%. Patient was ventilated with a bag valve and pulse oxygenation improved. He was placed on a nonrebreather and brought here. Here patient's problem of BiPAP. And is somewhat delirious. Not able to give any history. Patient chronic stable medical conditions include diabetes, hypertension, hyperlipidemia, history of breast cancer with right mastectomy. No family members currently present. Admitted with acute severe bilateral COVID 19 pneumonia, acute severe hypoxic respiratory failure, acute metabolic encephalopathy, with delirium. Patient placed on oxygen. Decadron. Lovenox. Consultation to neurology, pulmonary Today-patient still remains to be delirious. On BiPAP. Seen by pulmonary earlier. Ordered ACTEMRA. Also being followed by neurology Review of systems: Cannot be obtained as patient-delirious Active Medications Acetaminophen (Acetaminophen Suppository 650 Mg Supp) 650 mg RECTAL Q4HR PRN PRN Reason: Fever And/ Or Mild Pain Amlodipine Besylate (Amlodipine 5 Mg Tab) 5 mg PO BID [facility] Last Admin: 06/13/20 12:46 Dose: Not Given Documented by: Ascorbic Acid (Ascorbic Acid 500 Mg Tab) 1,000 mg PO DAILY [facility] Last Admin: 06/13/20 12:36 Dose: 1,000 mg Documented by: Atorvastatin Calcium (Atorvastatin 10 Mg Tab) 10 mg PO HS [facility] Last Admin: 06/12/20 22:06 Dose: Not Given Documented by: Cholecalciferol (Cholecalciferol 25 Mcg (1000 Iu) Tablet) 25 mcg PO DAILY [facility] Last Admin: 06/13/20 12:45 Dose: Not Given Documented by: Clonidine HCl (Clonidine 0.1 Mg/24hr Patch) 1 patch TRANSDERM Q7D [facility] Last Admin: 06/12/20 20:19 Dose: 1 patch Documented by: Enoxaparin Sodium (Enoxaparin 40 Mg/0.4 Ml Syringe) 40 mg SQ DAILY [facility] Last Admin: 06/13/20 12:36 Dose: 40 mg Documented by: Famotidine (Famotidine 20 Mg/2 Ml Vial) 20 mg IV Q12HR [facility] Last Admin: 06/13/20 12:37 Dose: 20 mg Documented by: Gabapentin (Gabapentin 300 Mg Cap) 600 mg PO BID [facility] Last Admin: 06/13/20 12:46 Dose: Not Given Documented by: Lisinopril/HCTZ (Lisinopril-Hctz 20-25 Mg 1 Each Tab) 1 each PO DAILY [facility] Last Admin: 06/13/20 12:47 Dose: Not Given Documented by: Sodium Chloride (Saline 0.9%) 1,000 mls @ 100 mls/hr IV .Q10H [facility] Last Admin: 06/13/20 12:38 Dose: 100 mls/hr Documented by: Insulin Aspart (Insulin Aspart (Novolog) 100 Unit/Ml Vial) 0 unit SQ ACHS [facility]; Protocol Last Admin: 06/12/20 22:09 Dose: Not Given Documented by: Insulin Detemir (Insulin Detemir (Levemir) 100 Unit/Ml Syr) 20 unit SQ HS [facility] Last Admin: 06/12/20 20:23 Dose: 20 unit Documented by: Naloxone HCl (Naloxone 0.4 Mg/Ml 1 Ml Vial) 0.2 mg IV Q2M PRN PRN Reason: Opioid Reversal Sertraline HCl (Sertraline 50 Mg Tab) 50 mg PO DAILY [facility] Last Admin: 06/13/20 12:47 Dose: Not Given Documented by: Past medical history to include: Breast cancer with mastectomy, diabetes, hypertension, hyperlipidemia, anxiety Social history: Former smoker. Lives alone. Family history: Patient cannot tell Physical examination: VITAL SIGNS: 97.9, 95, 28, 1 4681, 94% on BiPAP GENERAL: BiPAP, reclining in bed, not able to answer questions. LUNGS:[ Respiratory rate increased, using accessory muscles. PSYCH: Patient's other delirious not able to answer questions. NEUROLOGICAL: [Cranial nerves grossly intact; no facial asymmetry, moving all 4 limbs Rest of the exam per pulmonary and nursing INVESTIGATIONS, reviewed in the clinical context: June 13: D-dimer 2.13 ABG pH 7.39 pCO2 45 pO2 68 CRP 356 troponin I 0.190 WBC 7.3 hemoglobin 11.8 platelets 357 ABG: PH 7.45 pCO2 32, pO2 79 Potassium 3.9 creatinine 1.0 blood glucose 321 Troponin I 0.104 CRP 334 EKG tracing personally reviewed by me-normal sinus rhythm, nonspecific ST segment changes Chest x-ray film personally reviewed by me-bilateral infiltrate severe CT angio chest: Bilateral diffuse patchy groundglass opacities and consolidation. CTA head and neck: Negative Computed tomography scan of the brain: Negative Assessment and plan: -Acute severe bilateral COVID 19 pneumonia, diagnosed 5 days before admission, with symptoms present 2-3 weeks prior to that.-Not improving on IV dexamethasone, subcu Lovenox, vitamin C vitamin D Pepcid zinc. ACTEMRA ordered today by pulmonary -Acute severe hypoxic respiratory failure, secondary to COVID 19 pneumonia-not improving Remains on BiPAP. -Acute delirium and acute metabolic encephalopathy Follow closely. -Diabetes mellitus type 2 on oral hypoglycemic, uncontrolled with hyperglycemia secondary to steroids Hold off oral hypoglycemic. Follow Accu-Cheks. -Essential hypertension Not able to tolerate oral medications. - Catapres patch 0.1 -Diabetic peripheral neuropathy Resume gabapentin when able to tolerate by mouth -Hyperlipidemia Resume Mevacor unable to tolerate by mouth Prognosis guarded. 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
[2020-06-13 17:14] LABS: Ferritin 1334.5 ng/mL (10.0-291.0)
[2020-06-13] MEDS ORDERED: INSULIN ASPART (NovoLOG) 100 UNIT/ML VIAL SQ SCH (17:30)
[2020-06-13] MEDS: INSULIN ASPART (NovoLOG) 100 UNIT/ML VIAL SQ SCH ×2 (18:03→18:04)
[2020-06-13 18:10] LABS: Glucose,Whole Blood 272 mg/dL (75-99)
[2020-06-13] MEDS: DEXAMETHASONE SOD PHOSPHATE 10 MG/ML 1 ML VIAL IV SCH (18:10)
[2020-06-13] MEDS ORDERED: INSULIN REGULAR BOLUS (FROM DRIP BAG) IV PRN (18:59)
[2020-06-13] MEDS: INSULIN REGULAR 100 UNIT in SODIUM CHLORIDE 0.9% 100 ML IV SCH ×2 (19:35→20:35)
[2020-06-13 20:45] LABS: Glucose,Whole Blood 275 mg/dL (75-99)
[2020-06-13] MEDS: INSULIN DETEMIR (LEVEMIR) 100 UNIT/ML SYR SQ SCH (21:29)
[2020-06-13 21:39] LABS: Glucose,Whole Blood 292 mg/dL (75-99)
[2020-06-13] MEDS: ACETAMINOPHEN SUPPOSITORY 650 MG SUPP RECTAL PRN (21:46)
[2020-06-13] MEDS: ATORVASTATIN 10 MG TAB PO SCH (21:58)
[2020-06-13 22:29] LABS: Glucose,Whole Blood 243 mg/dL (75-99)
[2020-06-13 23:35] LABS: Glucose,Whole Blood 219 mg/dL (75-99)
[2020-06-13] MEDS: LORazepam 2 MG/ML INJ IV PRN (23:45)
[2020-06-14 00:40] LABS: Glucose,Whole Blood 194 mg/dL (75-99)
[2020-06-14 01:56] LABS: Glucose,Whole Blood 162 mg/dL (75-99)
[2020-06-14 02:36] LABS: Glucose,Whole Blood 131 mg/dL (75-99)
[2020-06-14 04:30] LABS: Basophils # (A) 0.1 k/uL (0-0.2); Basophils % (A) 1 %; Eosinophils % (A) 0 %; HCT 36.8 % (34.0-46.0); HGB 12.5 gm/dL (11.4-16.0); Lymphocytes # (A) 0.5 k/uL (1.0-4.8); Lymphocytes % (A) 7 %; MCH 30.9 pg (25.0-35.0); MCHC 33.8 g/dL (31.0-37.0); MCV 91.4 fL (80.0-100.0); Mean Platelet Volume 7.5; Monocytes # (A) 0.3 k/uL (0-1.0); Monocytes % (A) 5 %; Neutrophils # (A) 5.6 k/uL (1.3-7.7); Neutrophils % (A) 84 %; Platelet Count 370 k/uL (150-450); RBC 4.03 m/uL (3.80-5.40); RDW 13.6 % (11.5-15.5); WBC 6.6 k/uL (3.8-10.6)
[2020-06-14 04:40] LABS: Glucose,Whole Blood 120 mg/dL (75-99)
[2020-06-14 04:47] LABS: Albumin 3.6 g/dL (3.5-5.0); Calcium 9.6 mg/dL (8.4-10.2); Potassium 4.3 mmol/L (3.5-5.1); Total Bilirubin 0.6 mg/dL (0.2-1.3); Total Protein 6.7 g/dL (6.3-8.2)
[2020-06-14 05:45] LABS: Glucose,Whole Blood 114 mg/dL (75-99)
[2020-06-14 06:55] LABS: Glucose,Whole Blood 108 mg/dL (75-99)
[2020-06-14] MEDS: SODIUM CHLORIDE 0.9% 1,000 ML IV SCH (08:24)
[2020-06-14] MEDS: LORazepam 2 MG/ML INJ IV PRN (08:24)
[2020-06-14 08:36] LABS: Glucose,Whole Blood 99 mg/dL (75-99)
--- NOTE | 2020-06-14 08:43 | P.PN ---
Subjective Progress Note Date: 06/14/20 69-year-old white female patient who presented to the emergency department on 0 06/12/2020 at 1400 in the afternoon with complaints of shortness of breath, and her first onset of symptoms was approximately 2-3 weeks ago. She tested positive for COVID 19 on 06/07/2020. Patient was seen in the emergency department at that time, and was having symptoms of fatigue, shortness of breath and cough. She does have multiple comorbidities including hypertension, diabetes mellitus, dyslipidemia, history of breast cancer, patient is a former smoker. Was outside the window for monoclonal antibody, she was sent home on Decadron, and vitamins. Chest x-ray at that time showed interstitial infiltrates. Patient returned with worsening symptoms, chest x-ray on the 2020 showed interval bilateral diffuse infiltrates. In addition patient was confused, on arrival of the EMS to the scene patient was severely hypoxemic with a pulse ox of only 46%. She was bagged valve ventilated with improvement in her oxygen, she was placed on BiPAP support. Brain CT showed no acute intracranial abnormality. Angiography CT showed no acute abnormality of the head/neck, and a moderate stenosis of the right proximal ICA. CBC was positive for lymphopenia with lymphocyte count 0.6, d-dimer was 1.36, sodium is 143, potassium is 3.9, chloride is 108, CO2 22, BUN is 50, creatinine is 1, glucose level was 321, plasma lactic acid is 1.3, AST was 84, ALT was 31, alk phos was 50, troponin was 0.104, CRP was 334. Patient was started on IV Decadron in the emergency department, she remains on BiPAP support, currently at pressures of 12 and 6 and FiO2 100%, she appears to have increased work of breathing, she is not able to answer questions related to dyspnea, repeat blood gas was done showing pO2 of 68, pCO2 45, pH of 7.39 and subsequently her BiPAP settings were adjusted to 14/7 and FiO2 100%, patient is awaiting a bed in the intensive care unit, she is awake and alert, she did answer some simple questions yes or no for me while on BiPAP support, we'll start the patient on IL-6 MAB, Tocilizumab. We'll continue to closely follow her clinical course, continues to deteriorate patient required intubation and placement on mechanical ventilatory supp On today's evaluation of 06/13/2020 the patient is being seen for a follow-up regarding acute hypoxic respiratory failure and COVID 19 pneumonia. The patient was status post positive on 06/07/2020 and the patient was symptomatic prior to that. The patient presented with hypoxic respiratory failure and the patient was placed on a BiPAP which is currently at the pressure of 14/7 cm of water and FiO2 of 900%. Chest x-ray showing bilateral patchy by troponin infiltrates consistent with pneumonia. The patient was started on steroids and Tocilizumab was ordered. The patient is having increased shortness of breath even while on the BiPAP. The patient is quite dyspneic even while on the BiPAP and is unable to complete full sentences. Blood gases from yesterday was noted. CT angiogram of the head and neck showed moderate stenosis of the right proximal ICA. CAT scan of the brain was negative., CRP of 356, troponin was 0.19 and the patient's d-dimer was 2.13. The patient is currently on Decadron 6 mg IV every 24 hours. The patient is on Lovenox 40 mg subcu every 24 hours. The patient on Levemir insulin 20 units daily at bedtime that was started yesterday the patient will be taken off the insulin drip. Currently the patient is also on various hypertensive medications including Zestoretic and Kl clonidine patch and Norvasc. neurologically, the patient is still quite somnolent. She is moving all 4 extremities. No neck stiffness. This encephalopathy is probably related to Covid 19 infection. Neuro is also on the case. His blood work, the sodium level is at 154 with a BUN of 61 and creatinine of 0.9. The patient on IV fluid and currently receiving 0.9 at the rate of 100 mL an hour. Objective - Vital Signs Vital signs: Vital Signs Temp 98.2 F 06/14/20 07:57 Pulse 87 06/14/20 07:57 Resp 25 H 06/14/20 07:57 BP 144/80 06/14/20 07:57 Pulse Ox 95 06/14/20 07:57 Intake & Output 06/13/20 06/14/20 06/14/20 18:59 06:59 18:59 Intake Total 59.320 Output Total 900 Balance 59.320 -900 Intake: Intake, IV Titration 59.320 Amount Insulin Regular 100 unit 59.320 In Sodium Chloride 0.9% 100 ml @ Per Protocol IV .Q0M [facility] Rx#:[id number] Output: Urine 900 - Exam GENERAL EXAM:69-year-old white female on BiPAP support, currently with 14 and 7 and FiO2 900%, appears fatigued, short of breath, pulse ox is around 93% HEAD: Normocephalic/atraumatic. EYES: Normal reaction of pupils, equal size. Conjunctiva pink, sclera white. NOSE: Clear with pink turbinates. THROAT: No erythema or exudates. NECK: No masses, no JVD, no thyroid enlargement, no adenopathy. CHEST: No chest wall deformity. Symmetrical expansion. LUNGS: Equal air entry with diffuse crackles CVS: Regular rate and rhythm, normal S1 and S2, no gallops, no murmurs, no rubs ABDOMEN: Soft, nontender. No hepatosplenomegaly, normal bowel sounds, no guarding or rigidity. EXTREMITIES: No clubbing, no edema, no cyanosis, 2+ pulses and upper and lower extremities. MUSCULOSKELETAL: Muscle strength and tone normal. SPINE: No scoliosis or deformity SKIN: No rashes CENTRAL NERVOUS SYSTEM: Alert and oriented -1. No focal deficits, tone is nor mal in all 4 extremities. Unable to assess orientation at this time patient on BiPAP support, unable to answer questions related to increased work of breathing - Labs CBC & Chem 7: 06/14/20 03:47 06/14/20 03:47 Labs: Abnormal Lab Results - Last 24 Hours (Table) 06/13/20 06/13/20 06/13/20 Range/Units 07:53 11:33 11:33 Lymphocytes # (1.0-4.8) k/uL ABG pO2 68 L (83-108) mmHg ABG HCO3 27 H (21-25) mmol/L Sodium (137-145) mmol/L Chloride (98-107) mmol/L BUN (7-17) mg/dL Glucose (74-99) mg/dL POC Glucose (mg/dL) (75-99) mg/dL Ferritin 1334.5 H (10.0-291.0) ng/mL AST (14-36) U/L Lactate Dehydrogenase 2713 H (313-618) U/L Creatine Kinase 226 H (30-135) U/L Troponin I 0.190 H* (0.000-0.034) ng/mL 06/13/20 06/13/20 06/13/20 Range/Units 18:09 20:25 21:28 Lymphocytes # (1.0-4.8) k/uL ABG pO2 (83-108) mmHg ABG HCO3 (21-25) mmol/L Sodium (137-145) mmol/L Chloride (98-107) mmol/L BUN (7-17) mg/dL Glucose (74-99) mg/dL POC Glucose (mg/dL) 272 H 275 H 292 H (75-99) mg/dL Ferritin (10.0-291.0) ng/mL AST (14-36) U/L Lactate Dehydrogenase (313-618) U/L Creatine Kinase (30-135) U/L Troponin I (0.000-0.034) ng/mL 06/13/20 06/13/20 06/14/20 Range/Units 22:27 23:34 00:39 Lymphocytes # (1.0-4.8) k/uL ABG pO2 (83-108) mmHg ABG HCO3 (21-25) mmol/L Sodium (137-145) mmol/L Chloride (98-107) mmol/L BUN (7-17) mg/dL Glucose (74-99) mg/dL POC Glucose (mg/dL) 243 H 219 H 194 H (75-99) mg/dL Ferritin (10.0-291.0) ng/mL AST (14-36) U/L Lactate Dehydrogenase (313-618) U/L Creatine Kinase (30-135) U/L Troponin I (0.000-0.034) ng/mL 06/14/20 06/14/20 06/14/20 Range/Units 01:46 02:33 03:47 Lymphocytes # 0.5 L (1.0-4.8) k/uL ABG pO2 (83-108) mmHg ABG HCO3 (21-25) mmol/L Sodium (137-145) mmol/L Chloride (98-107) mmol/L BUN (7-17) mg/dL Glucose (74-99) mg/dL POC Glucose (mg/dL) 162 H 131 H (75-99) mg/dL Ferritin (10.0-291.0) ng/mL AST (14-36) U/L Lactate Dehydrogenase (313-618) U/L Creatine Kinase (30-135) U/L Troponin I (0.000-0.034) ng/mL 06/14/20 06/14/20 06/14/20 Range/Units 03:47 04:26 05:42 Lymphocytes # (1.0-4.8) k/uL ABG pO2 (83-108) mmHg ABG HCO3 (21-25) mmol/L Sodium 154 H (137-145) mmol/L Chloride 118 H (98-107) mmol/L BUN 61 H (7-17) mg/dL Glucose 115 H (74-99) mg/dL POC Glucose (mg/dL) 120 H 114 H (75-99) mg/dL Ferritin (10.0-291.0) ng/mL AST 79 H (14-36) U/L Lactate Dehydrogenase (313-618) U/L Creatine Kinase (30-135) U/L Troponin I (0.000-0.034) ng/mL 06/14/20 Range/Units 06:53 Lymphocytes # (1.0-4.8) k/uL ABG pO2 (83-108) mmHg ABG HCO3 (21-25) mmol/L Sodium (137-145) mmol/L Chloride (98-107) mmol/L BUN (7-17) mg/dL Glucose (74-99) mg/dL POC Glucose (mg/dL) 108 H (75-99) mg/dL Ferritin (10.0-291.0) ng/mL AST (14-36) U/L Lactate Dehydrogenase (313-618) U/L Creatine Kinase (30-135) U/L Troponin I (0.000-0.034) ng/mL Assessment and Plan Plan: #1. Acute hypoxic respiratory failure related to acute COVID 19 pneumonia, with onset of symptoms 3 weeks ago, tested positive in the emergency department on 06/07/2020, was outside the window for BAM, was sent home on Decadron and vitamins. Returned for reevaluation worsening symptoms and worsening hypoxia. Tocilizumab was given in addition to Decadron. The patient is currently on BiPAP. Current pressures of 14/7 cm of water with an FiO2 of 90%. Chest x-ray diffuse infiltrates that with pneumonia. Inflammatory markers are quite elevated. The patient remains encephalopathic and the patient probably is going through Covid encephalopathy. No agitation. Neurologic exam is nonfocal. #2. Increased inflammatory markers and d-dimer related to the above #3. Troponin leak, we'll follow serial troponins, likely secondary to Covid 19 related infection #4. Altered mental status, brain CT and angiogram of the brain negative, possibly related to metabolic encephalopathy/Covid 19 encephalopathy #5. Aphasia, rule out possibility of a stroke, neurology consultation has been requested, patient was not a candidate for TPA #6. Hypertension #7. Hyperlipidemia #8. Diabetes multiple's type II, started on Levemir insulin for blood sugar control. Insulin drip will be gradually weaned off. #9. History of breast cancer with history of right mastectomy #10 Anxiety #11 Former smoker #12 hyperchloremic hypernatremia Plan: Continue BiPAP for respiratory support, , BiPAP of 14/7 with an FiO2 of 90%. Blood gases to follow. We should be able to wean down the saturation slightly knowing that the patient's pulse ox above 90% Encephalopathy is obviously concern. Do not use Ativan, use Precedex drip if needed to control agitation and synchrony with the BiPAP machine. High risk for intubation mechanical ventilation and the patient will be monitored very closely Treatment with Il-6 MAB, Tocilizumab, continue Decadron, Lovenox 40 mg daily, continue Pepcid, continue IV fluids and the patient will be switched to D5 water at the rate of 125 mL an hour Utilize insulin drip for blood sugar control if needed will follow her clinical course closely obtain follow-up troponins, LDH, ferritin Patient is critically ill and will continue to follow make further recommendations based on her progress Awaiting transfer to the ICU Critically care evaluation for more than 30 minutes Time with Patient: Greater than 30
[2020-06-14] MEDS: CHOLECALCIFEROL 25 MCG (1000 IU) TABLET PO SCH (09:03)
--- NOTE | 2020-06-14 09:14 | XR ---
EXAMINATION TYPE: XR chest 1V portable DATE OF EXAM: 06/14/2020 COMPARISON: 06/12/2020 HISTORY: Cough TECHNIQUE: Single frontal view of the chest is obtained. FINDINGS: A diffuse patchy bilateral infiltrate stable. No pneumothorax. Small bilateral pleural eff usion. Heart size stable. Atherosclerotic change aorta. Osseous structures are stable. IMPRESSION: Diffuse bilateral infiltrate stable
[2020-06-14] MEDS: GABAPENTIN 300 MG CAP PO SCH ×2 (09:15→21:52)
[2020-06-14] MEDS: amLODIPine 5 MG TAB PO SCH ×2 (09:15→20:59)
[2020-06-14] MEDS: ASCORBIC ACID 500 MG TAB PO SCH (09:15)
[2020-06-14] MEDS: LISINOPRIL-HCTZ 20-25 MG 1 EACH TAB PO SCH (09:16)
[2020-06-14] MEDS: SERTRALINE 50 MG TAB PO SCH (09:16)
[2020-06-14] MEDS: FAMOTIDINE 20 MG/2 ML VIAL IV SCH ×2 (09:55→22:04)
[2020-06-14] MEDS: DEXAMETHASONE SOD PHOSPHATE 10 MG/ML 1 ML VIAL IV SCH (09:55)
[2020-06-14] MEDS: DEXMEDETOMIDINE/0.9% NACL(PMX) 400 MCG in EMPTY BAG 1 BAG IV SCH (09:56)
[2020-06-14] MEDS: ENOXAPARIN 40 MG/0.4 ML SYRINGE SQ SCH ×2 (09:56→10:52)
[2020-06-14] MEDS: DEXTROSE 5% IN WATER 1,000 ML IV SCH ×2 (10:06→16:55)
[2020-06-14 10:21] LABS: ABG Base Excess 4.1 mmol/L; ABG HCO3 28 mmol/L (21-25); ABG Oxygen Saturation 90.8 % (94-97); ABG PCO2 37 mmHg (35-45); ABG PH 7.48 (7.35-7.45); ABG TCO2 29 mmol/L (19-24); Allen Test Performed? Yes
--- NOTE | 2020-06-14 11:31 | P.PN ---
Progress Note - Text Progress Note Date: 06/14/20 (1110) [id number] for lumbar puncture. Ordered foraltered mental status. Coagulopathies: INR 0.9, platelets 370 CT brain shows no mass effect Medications: Lovenox 40 mg. Today's dose held.. Consent obtained. Timeout performed Sterile protocol was used throughout procedure. L3 4 was identified and patient sitting off edge of bed. Chlorhexidine 2 was used to clean the patient's back. Lidocaine 1% 3 mL was used as local and was infiltrated. Spinal needle 22- gauge 3-1/2 inches was used in 2 attempt. CSF was obtained. No heme. Specimens collected 4-2 mL each. Needle was withdrawn and Band-Aid applied. Patient tolerated procedure well without complication. Patient and samples left and care of nurse
[2020-06-14 11:45] LABS: ABG PO2 59 mmHg (83-108)
[2020-06-14 11:55] LABS: Glucose,Whole Blood 153 mg/dL (75-99)
[2020-06-14 12:17] LABS: Glucose,CSF 79 mg/dL (40-70); Total Protein,CSF 66 mg/dL (12-60)
--- NOTE | 2020-06-14 12:54 | P.PN ---
Subjective Progress Note Date: 06/14/20 Seeing the patient for the first time regarding neurological management. Please refer to Dr. Mcallister for further neurological detailed history. Briefly Dr. Mcallister is concerned that the patient has encephalopathy with possible aphasia secondary to covid 19 infection versus hypoxemia. She also recommends to rule out stroke and or MANAGER JAVA infection. As a result a lumbar puncture is ordered. Upon seeing the patient the pulmonary therapist was there and the patient is on the BiPAP. She is also on Precedex 0.7 mcg/kg/h since the patient is agitated. She just had the lumbar puncture today and the pending result. On initial presentation the patient's temperature was 98.3 and the patient has had any fevers in our facility on this current admission. But the patient has been tachypneic in the range of 25 and a got as high as 40 overnight. Pulse ox has been in the range of 88-94 this morning and the patient is on BiPAP machine. White blood cell has been in the normal range of 7.3 and a repeat is 6.6. On initial presentation the patient's sodium levels 143 on repeated at 154. A shunt blood sugar has been in the range of 100 to 130s. The AST 79 which is slightly elevated in the ALTs 34. Objective - Vital Signs Vital signs: Vital Signs Temp 98.2 F 06/14/20 07:57 Pulse 75 06/14/20 09:00 Resp 25 H 06/14/20 09:00 BP 148/75 06/14/20 09:00 Pulse Ox 88 L 06/14/20 09:00 Intake & Output 06/13/20 06/14/20 06/14/20 18:59 06:59 18:59 Intake Total 59.320 Output Total 900 Balance 59.320 -900 Weight 89.267 kg Intake: Intake, IV Titration 59.320 Amount Insulin Regular 100 unit 59.320 In Sodium Chloride 0.9% 100 ml @ Per Protocol IV .Q0M [facility] Rx#:[id number] Output: Urine 900 - Exam GENERAL: The patient is lying in bed and does not seem in acute distress. She is on IV Precedex 0.7mcg/kg/hr and is on BIPAP machine. HENT: No nuchal rdigity. LUNG: Clear to auscultation bilaterally no wheezing noted throughout. Not labored breathing. On BiPAP machine. NEUROLOGICAL: Limited since on Precedex 0.7mcg/kg/hr and BIPAP machine Higher mental function: GCS 9 (E3, V1, M5). Is not verbalizing or following commands. Cranial nerves: Opens eyes and is round, equal (3mm) bilaterally and reactive to light. Primary gaze is midline. No facial weakness. Rest of cranial nerves are limited because of condition. Motor: Gait is deferred. The strength is withdrawing all extremities to painful stimuli. Normal tone and bulk. Cerebellum: Could not assess. Sensation: Withdrawing all extremities to painful stimuli. Reflexes (right/left): 1+ throughout. Plantars are downgoing bilaterally. - Labs CBC & Chem 7: 06/14/20 03:47 06/14/20 03:47 Labs: Abnormal Lab Results - Last 24 Hours (Table) 06/13/20 06/13/20 06/13/20 Range/Units 11:33 11:33 18:09 Lymphocytes # (1.0-4.8) k/uL Sodium (137-145) mmol/L Chloride (98-107) mmol/L BUN (7-17) mg/dL Glucose (74-99) mg/dL POC Glucose (mg/dL) 272 H (75-99) mg/dL Ferritin 1334.5 H (10.0-291.0) ng/mL AST (14-36) U/L Lactate Dehydrogenase 2713 H (313-618) U/L Creatine Kinase 226 H (30-135) U/L Troponin I 0.190 H* (0.000-0.034) ng/mL 06/13/20 06/13/20 06/13/20 Range/Units 20:25 21:28 22:27 Lymphocytes # (1.0-4.8) k/uL Sodium (137-145) mmol/L Chloride (98-107) mmol/L BUN (7-17) mg/dL Glucose (74-99) mg/dL POC Glucose (mg/dL) 275 H 292 H 243 H (75-99) mg/dL Ferritin (10.0-291.0) ng/mL AST (14-36) U/L Lactate Dehydrogenase (313-618) U/L Creatine Kinase (30-135) U/L Troponin I (0.000-0.034) ng/mL 06/13/20 06/14/20 06/14/20 Range/Units 23:34 00:39 01:46 Lymphocytes # (1.0-4.8) k/uL Sodium (137-145) mmol/L Chloride (98-107) mmol/L BUN (7-17) mg/dL Glucose (74-99) mg/dL POC Glucose (mg/dL) 219 H 194 H 162 H (75-99) mg/dL Ferritin (10.0-291.0) ng/mL AST (14-36) U/L Lactate Dehydrogenase (313-618) U/L Creatine Kinase (30-135) U/L Troponin I (0.000-0.034) ng/mL 06/14/20 06/14/20 06/14/20 Range/Units 02:33 03:47 03:47 Lymphocytes # 0.5 L (1.0-4.8) k/uL Sodium 154 H (137-145) mmol/L Chloride 118 H (98-107) mmol/L BUN 61 H (7-17) mg/dL Glucose 115 H (74-99) mg/dL POC Glucose (mg/dL) 131 H (75-99) mg/dL Ferritin (10.0-291.0) ng/mL AST 79 H (14-36) U/L Lactate Dehydrogenase (313-618) U/L Creatine Kinase (30-135) U/L Troponin I (0.000-0.034) ng/mL 06/14/20 06/14/20 06/14/20 Range/Units 04:26 05:42 06:53 Lymphocytes # (1.0-4.8) k/uL Sodium (137-145) mmol/L Chloride (98-107) mmol/L BUN (7-17) mg/dL Glucose (74-99) mg/dL POC Glucose (mg/dL) 120 H 114 H 108 H (75-99) mg/dL Ferritin (10.0-291.0) ng/mL AST (14-36) U/L Lactate Dehydrogenase (313-618) U/L Creatine Kinase (30-135) U/L Troponin I (0.000-0.034) ng/mL Assessment and Plan Assessment: Acute encephalopathy likely due to hypoxeimia from pneumonia COVID 19 and underlying metabolic encephalopathy (elevated sodium and AST). Aphasia possibly due to above or possibly his rule out stroke Acute hypoxic respiratory failure related to acute Covid 19 pneumonia with onset of symptoms 3 weeks ago (tested positived in emergency department on 06/07/2020) Acute hypernatremia likely due to dehydration Hypertension Hyperlipidemia Diabetes mellitus type 2 History of breast cancer with history of right mastectomy X tobacco use Anxiety Plan: Anesthesiology is consulted for lumbar puncture to rule out underlying encephalitis (seems unlikely). she had lumbar puncture today and pending results. MRI of the brain with and without is pending. I ordered a routine EEG. I will not start the patient on an antiepileptic drug unless there is applicable discharge procedure on the EEG. I ordered ammonia level, TSH, Vitamin B12 and folate levels. We'll defer the rest of the management to the primary team as well as ICU team. The plan is discussed with the patient's nurse. UPDATE: CSF study: CSF appears clear, colorless, red blood cells 7, nuclear cells as to which is normal, glucose is 79 with a slightly elevated and the CSF total protein is 66 which is slightly elevated. This CSF is not suggestive of men ingo-encephalitis since normal nucleated cells. Brian Glover MD Neuro-Hospitalist Time with Patient: Less than 30
[2020-06-14 13:06] LABS: Appearance,CSF Clear; CSF Tube Number 4; CSF Tube Volume 0.75; Nucleated Cells, CSF 2 u/L (0-5); Red Blood Cell,CSF 7 u/L (0-10)
[2020-06-14 13:23] LABS: Glucose,Whole Blood 184 mg/dL (75-99)
[2020-06-14 14:47] LABS: Glucose,Whole Blood 158 mg/dL (75-99)
[2020-06-14 16:02] LABS: Glucose,Whole Blood 164 mg/dL (75-99)
[2020-06-14 16:15] LABS: T4, Free (Free Thyroxine) 1.48 ng/dL (0.78-2.19)
[2020-06-14 17:24] LABS: Glucose,Whole Blood 163 mg/dL (75-99)
[2020-06-14 18:38] LABS: Glucose,Whole Blood 181 mg/dL (75-99)
[2020-06-14 19:56] LABS: Glucose,Whole Blood 166 mg/dL (75-99)
[2020-06-14 19:57] LABS: HCT 36.2 % (34.0-46.0); HGB 11.4 gm/dL (11.4-16.0); Hypochromasia Slight; MCH 29.9 pg (25.0-35.0); MCHC 31.4 g/dL (31.0-37.0); MCV 95.2 fL (80.0-100.0); Mean Platelet Volume 8.6; Platelet Count 338 k/uL (150-450); RDW 14.2 % (11.5-15.5); WBC 7.4 k/uL (3.8-10.6)
[2020-06-14 19:58] LABS: Albumin 3.4 g/dL (3.5-5.0); Calcium 9.3 mg/dL (8.4-10.2); Potassium 4.7 mmol/L (3.5-5.1); Total Bilirubin 0.9 mg/dL (0.2-1.3); Total Protein 6.6 g/dL (6.3-8.2)
[2020-06-14 20:59] LABS: Glucose,Whole Blood 167 mg/dL (75-99)
[2020-06-14] MEDS: ATORVASTATIN 10 MG TAB PO SCH (21:00)
[2020-06-14] MEDS ORDERED: ENOXAPARIN 40 MG/0.4 ML SYRINGE SQ SCH (21:15)
--- NOTE | 2020-06-14 21:24 | P.PN ---
Progress Note - Text Progress Note Date: 06/14/20 Chief Complaint: Short of breath History of presenting complaint: This is a 69-year-old patient who follows with Dr. blake . Patient was last seen in the ER about 5 days ago. She then had an having respiratory symptoms including cough for about 2 or 3 weeks prior to that. On this presentation is patient is altered sense. She was last seen normal at home on Sunday. EMS was called out and they found the patient to be hypoxic with 46%. Patient was ventilated with a bag valve and pulse oxygenation improved. He was placed on a nonrebreather and brought here. Here patient's problem of BiPAP. And is somewhat delirious. Not able to give any history. Patient chronic stable medical conditions include diabetes, hypertension, hyperlipidemia, history of breast cancer with right mastectomy. No family members currently present. Admitted with acute severe bilateral COVID 19 pneumonia, acute severe hypoxic respiratory failure, acute metabolic encephalopathy, with delirium. Patient placed on oxygen. Decadron. Lovenox. Consultation to neurology, pulmonary Today-patient remains in the ER as in IC overflowed. On BiPAP with the settings of 14/7/100%. Patient is on a Precedex drip and insulin drip. As per neurology patient underwent a lumbar puncture and CSF care to be rather benign appearing. The clinical suspicion of meningitis was very low. Patient sedated Review of systems: Cannot be obtained as sedated Active Medications Acetaminophen (Acetaminophen Suppository 650 Mg Supp) 650 mg RECTAL Q4HR PRN PRN Reason: Fever And/ Or Mild Pain Last Admin: 06/13/20 21:46 Dose: 650 mg Documented by: Amlodipine Besylate (Amlodipine 5 Mg Tab) 5 mg PO BID [facility] Last Admin: 06/14/20 20:59 Dose: Not Given Documented by: Ascorbic Acid (Ascorbic Acid 500 Mg Tab) 1,000 mg PO DAILY [facility] Last Admin: 06/14/20 09:15 Dose: Not Given Documented by: Atorvastatin Calcium (Atorvastatin 10 Mg Tab) 10 mg PO HS [facility] Last Admin: 06/14/20 21:00 Dose: Not Given Documented by: Cholecalciferol (Cholecalciferol 25 Mcg (1000 Iu) Tablet) 25 mcg PO DAILY [facility] Last Admin: 06/14/20 09:03 Dose: Not Given Documented by: Clonidine HCl (Clonidine 0.1 Mg/24hr Patch) 1 patch TRANSDERM Q7D [facility] Last Admin: 06/12/20 20:19 Dose: 1 patch Documented by: Dexamethasone Sodium Phosphate (Dexamethasone Sod Phosphate 10 Mg/Ml 1 Ml Vial) 6 mg IV DAILY [facility] Last Admin: 06/14/20 09:55 Dose: 6 mg Documented by: Enoxaparin Sodium (Enoxaparin 40 Mg/0.4 Ml Syringe) 45 mg SQ Q12HR [facility] Famotidine (Famotidine 20 Mg/2 Ml Vial) 20 mg IV Q12HR [facility] Last Admin: 06/14/20 09:55 Dose: 20 mg Documented by: Gabapentin (Gabapentin 300 Mg Cap) 600 mg PO BID [facility] Last Admin: 06/14/20 09:15 Dose: Not Given Documented by: Lisinopril/HCTZ (Lisinopril-Hctz 20-25 Mg 1 Each Tab) 1 each PO DAILY [facility] Last Admin: 06/14/20 09:16 Dose: Not Given Documented by: Insulin Human Regular 100 unit (/ Sodium Chloride) 101 mls @ 0 mls/hr IV .Q0M [facility]; Protocol Last Titration: 06/14/20 19:45 Dose: 3 units/hr, 3.03 mls/hr Documented by: Dextrose/Water (Dextrose 5%-Water Iv Soln) 1,000 mls @ 125 mls/hr IV .Q8H [facility] Last Admin: 06/14/20 16:55 Dose: 125 mls/hr Documented by: Dexmedetomidine HCl 400 mcg/ (IV Solution) 100 mls @ 0 mls/hr IV .Q0M [facility]; Protocol Stop: 06/15/20 08:41 Last Titration: 06/14/20 16:49 Dose: 0.4 mcg/kg/hr, 8.927 mls/hr Documented by: Insulin Detemir (Insulin Detemir (Levemir) 100 Unit/Ml Syr) 20 unit SQ HS [facility] Last Admin: 06/13/20 21:29 Dose: 20 unit Documented by: Insulin Human Regular (Insulin Regular Bolus (From Drip Bag)) 8.9 unit 0.1 unit/kg (8.9 unit) IV ONCE PRN PRN Reason: Blood Sugar - High Last Admin: 06/13/20 19:35 Dose: 8.9 unit Documented by: Naloxone HCl (Naloxone 0.4 Mg/Ml 1 Ml Vial) 0.2 mg IV Q2M PRN PRN Reason: Opioid Reversal Sertraline HCl (Sertraline 50 Mg Tab) 50 mg PO DAILY [facility] Last Admin: 06/14/20 09:16 Dose: Not Given Documented by: Past medical history to include: Breast cancer with mastectomy, diabetes, hypertension, hyperlipidemia, anxiety Social history: Former smoker. Lives alone. Family history: Patient cannot tell Physical examination: VITAL SIGNS: 98.6, 49, 23, 153 but 75, 95% on 100% BiPAP GENERAL: BiPAP, laying in bed, sedated LUNGS:[ Respiratory rate increased, using accessory muscles. PSYCH: Unable to assess. Rest of the exam per pulmonary and nursing INVESTIGATIONS, reviewed in the clinical context: June 14: WBC 6.6 hemoglobin 12.5 platelets 370 sodium 154 potassium 4.3 creatinine 0.94 June 13: D-dimer 2.13 ABG pH 7.39 pCO2 45 pO2 68 CRP 356 troponin I 0.190 WBC 7.3 hemoglobin 11.8 platelets 357 ABG: PH 7.45 pCO2 32, pO2 79 Potassium 3.9 creatinine 1.0 blood glucose 321 Troponin I 0.104 CRP 334 EKG tracing personally reviewed by me-normal sinus rhythm, nonspecific ST segment changes Chest x-ray film personally reviewed by me-bilateral infiltrate severe CT angio chest: Bilateral diffuse patchy groundglass opacities and consolidation. CTA head and neck: Negative Computed tomography scan of the brain: Negative Assessment and plan: -Acute severe bilateral COVID 19 pneumonia, diagnosed 5 days before admission, with symptoms present 2-3 weeks prior to that.-Not improving on IV dexamethasone, subcu Lovenox, vitamin C vitamin D Pepcid zinc. ACTEMRA -Acute severe hypoxic respiratory failure, secondary to COVID 19 pneumonia-not improving Remains on BiPAP-100%. -Acute delirium and acute metabolic encephalopathy from COVID 19 pneumonia Follow closely. -Diabetes mellitus type 2 on oral hypoglycemic, uncontrolled with hyperglycemia secondary to steroids Hold off oral hypoglycemic. On insulin drip for Accu-Cheks -Essential hypertension Not able to tolerate oral medications. - Catapres patch 0.1 -Diabetic peripheral neuropathy Resume gabapentin when able to tolerate by mouth -Hyperlipidemia Resume Mevacor unable to tolerate by mouth -Patient underwent lumbar puncture. CSF benign. -Significant hypernatremia with hyperchloremia. Change IV fluids to D5 0.45. Follow labs. Prognosis guarded. Follow with consultants
[2020-06-14] MEDS ORDERED: ENOXAPARIN 60 MG/0.6 ML SYRINGE SQ SCH (21:54)
[2020-06-14] MEDS: DEXTROSE 5%-0.45% NACL 1,000 ML IV SCH (22:03)
[2020-06-14] MEDS: INSULIN DETEMIR (LEVEMIR) 100 UNIT/ML SYR SQ SCH (22:04)
[2020-06-14 22:18] LABS: Glucose,Whole Blood 202 mg/dL (75-99)
[2020-06-14] MEDS: ENOXAPARIN 60 MG/0.6 ML SYRINGE SQ SCH (22:52)
[2020-06-14 22:58] LABS: Glucose,Whole Blood 192 mg/dL (75-99)
[2020-06-15 00:07] LABS: Glucose,Whole Blood 161 mg/dL (75-99)
[2020-06-15] MEDS: INSULIN REGULAR 100 UNIT in SODIUM CHLORIDE 0.9% 100 ML IV SCH (01:17)
[2020-06-15 01:27] LABS: Glucose,Whole Blood 155 mg/dL (75-99)
[2020-06-15] MEDS: DEXMEDETOMIDINE/0.9% NACL(PMX) 400 MCG in EMPTY BAG 1 BAG IV SCH ×2 (02:10→08:31)
[2020-06-15 02:34] LABS: Glucose,Whole Blood 159 mg/dL (75-99)
[2020-06-15 03:15] LABS: Glucose,Whole Blood 141 mg/dL (75-99)
[2020-06-15 04:28] LABS: Folate, Serum >24.0 ng/mL
[2020-06-15 04:31] LABS: Glucose,Whole Blood 104 mg/dL (75-99)
[2020-06-15 05:24] LABS: Glucose,Whole Blood 102 mg/dL (75-99)
[2020-06-15 06:41] LABS: Glucose,Whole Blood 109 mg/dL (75-99)
[2020-06-15] MEDS: DEXTROSE 5%-0.45% NACL 1,000 ML IV SCH ×2 (06:50→22:07)
[2020-06-15 07:56] LABS: Glucose,Whole Blood 128 mg/dL (75-99)
[2020-06-15] MEDS: GABAPENTIN 300 MG CAP PO SCH ×2 (08:00→22:17)
[2020-06-15] MEDS: ASCORBIC ACID 500 MG TAB PO SCH (08:00)
[2020-06-15] MEDS: CHOLECALCIFEROL 25 MCG (1000 IU) TABLET PO SCH (08:00)
[2020-06-15] MEDS: amLODIPine 5 MG TAB PO SCH ×2 (08:00→21:37)
[2020-06-15] MEDS: LISINOPRIL-HCTZ 20-25 MG 1 EACH TAB PO SCH (08:01)
[2020-06-15] MEDS: SERTRALINE 50 MG TAB PO SCH (08:01)
[2020-06-15] MEDS: FAMOTIDINE 20 MG/2 ML VIAL IV SCH ×2 (08:07→22:01)
--- NOTE | 2020-06-15 09:11 | P.PN ---
Subjective Progress Note Date: 06/15/20 69-year-old white female patient who presented to the emergency department on 06/12/2020 at 1400 in the afternoon with complaints of shortness of breath, and her first onset of symptoms was approximately 2-3 weeks ago. She tested positive for COVID 19 on 06/07/2020. Patient was seen in the emergency department at that time, and was having symptoms of fatigue, shortness of breath and cough. She does have multiple comorbidities including hypertension, diabetes mellitus, dyslipidemia, history of breast cancer, patient is a former smoker. Was outside the window for monoclonal antibody, she was sent home on Decadron, and vitamins. Chest x-ray at that time showed interstitial infiltrates. Patient returned with worsening symptoms, chest x-ray on the 2020 showed interval bilateral diffuse infiltrates. In addition patient was confused, on arrival of the EMS to the scene patient was severely hypoxemic with a pulse ox of only 46%. She was bagged valve ventilated with improvement in her oxygen, she was placed on BiPAP support. Brain CT showed no acute intracranial abnormality. Angiography CT showed no acute abnormality of the head/neck, and a moderate stenosis of the right proximal ICA. CBC was positive for lymphopenia with lymphocyte count 0.6, d-dimer was 1.36, sodium is 143, potassium is 3.9, chloride is 108, CO2 22, BUN is 50, creatinine is 1, glucose level was 321, plasma lactic acid is 1.3, AST was 84, ALT was 31, alk phos was 50, troponin was 0.104, CRP was 334. Patient was started on IV Decadron in the emergency department, she remains on BiPAP support, currently at pressures of 12 and 6 and FiO2 100%, she appears to have increased work of breathing, she is not able to answer questions related to dyspnea, repeat blood gas was done showing pO2 of 68, pCO2 45, pH of 7.39 and subsequently her BiPAP settings were adjusted to 14/7 and FiO2 100%, patient is awaiting a bed in the intensive care unit, she is awake and alert, she did answer some simple questions yes or no for me while on BiPAP support, we'll start the patient on IL-6 MAB, Tocilizumab. We'll continue to closely follow her clinical course, continues to deteriorate patient required intubation and placement on mechanical ventilatory supp On today's evaluation of 06/14/2020 the patient is being seen for a follow-up regarding acute hypoxic respiratory failure and COVID 19 pneumonia. The patient was status post positive on 06/07/2020 and the patient was symptomatic prior to that. The patient presented with hypoxic respiratory failure and the patient was placed on a BiPAP which is currently at the pressure of 14/7 cm of water and FiO2 of 900%. Chest x-ray showing bilateral patchy by troponin infiltrates consistent with pneumonia. The patient was started on steroids and Tocilizumab was ordered. The patient is having increased shortness of breath even while on the BiPAP. The patient is quite dyspneic even while on the BiPAP and is unable to complete full sentences. Blood gases from yesterday was noted. CT angiogram of the head and neck showed moderate stenosis of the right proximal ICA. CAT scan of the brain was negative., CRP of 356, troponin was 0.19 and the patient's d-dimer was 2.13. The patient is currently on Decadron 6 mg IV every 24 hours. The patient is on Lovenox 40 mg subcu every 24 hours. The patient on Levemir insulin 20 units daily at bedtime that was started yesterday the patient will be taken off the insulin drip. Currently the patient is also on various hypertensive medications including Zestoretic and Kl clonidine patch and Norvasc. neurologically, the patient is still quite somnolent. She is moving all 4 extremities. No neck stiffness. This encephalopathy is probably related to Covid 19 infection. Neuro is also on the case. His blood work, the sodium level is at 154 with a BUN of 61 and creatinine of 0.9. The patient on IV fluid and currently receiving 0.9 at the rate of 100 mL an hour. On 06/15/2020, the patient is being seen in follow-up in the intensive care unit. This is a case of 69-year-old female patient with Covid associated pneumonia. The patient remains in the emergency department awaiting her bed in the ICU. Currently she is on a BiPAP at a pressure of 14/7 cm of water with an FiO2 of 100%. The patient is quite synchronous and tolerated the BiPAP treatment. Her current tidal volume generated is around 840 mL with a respiratory rate of 29 and a minute ventilation of 23. Chest x-ray from today has not been done and this is supposed to be repeated. The chest x-ray from y was showing diffuse bilaterally pulmonary infiltrates more so in the left perihilar area. No new blood gases. D-dimer is today at 34 and the CRP level is at 67. LDH is still pending for now. Neurologically, the patient is still lethargic and somnolent and encephalopathic. She is on Precedex running at 0.5 mcg/kg per minute. Lumbar puncture was done yesterday and the patient was found to have a CSF RBC of 7, nucleated cells were only a 2, glucose was 79 and the protein was slightly elevated at 66. This is not consistent with bacterial meningitis. It may be consistent with viral encephalopathy. Gram stain of the CSF was negative. Cultures are also negative. I would say clin ically she is essentially unchanged. She is more comfortable while being on Precedex. She is hemodynamically stable and she is afebrile. She is still receiving IV fluids in the form of D5 half-normal saline at the rate of 1 25 mL an hour. She is currently off the insulin drip. Her blood sugar is at 128 and the patient is on Levemir insulin 20 units daily at bedtime along with a sliding scale coverage. The patient's renal function currently is stable with a BUN of 63 and a creatinine of 0.8. Sodium level was improving and his sodium level was on the decline it was already down to 151. Objective - Vital Signs Vital signs: Vital Signs Temp 98.3 F 06/14/20 21:00 Pulse 48 L 06/15/20 08:09 Resp 22 06/15/20 08:09 BP 146/68 06/15/20 08:09 Pulse Ox 96 06/15/20 08:09 Intake & Output 06/14/20 06/15/20 06/15/20 18:59 06:59 18:59 Intake Total 119.089 86.046 19.155 Output Total 1300 800 Balance -1180.911 -713.954 19.155 Weight 89.267 kg Intake: Intake, IV Titration 119.089 86.046 19.155 Amount Dexmedetomidine/0.9% NaCl 100.000 63.455 19.155 (Pmx) 400 mcg In Empty Bag 1 bag @ Titrate IV . Q0M [facility] Rx#:[id number] Insulin Regular 100 unit 19.089 22.591 In Sodium Chloride 0.9% 100 ml @ Per Protocol IV .Q0M [facility] Rx#:[id number] Output: Urine 1300 800 Uretheral (Faustin) 400 - Exam GENERAL EXAM:69-year-old white female on BiPAP support, currently with 14 and 7 and FiO2 100%, appears fatigued, short of breath, pulse ox is around 93% HEAD: Normocephalic/atraumatic. EYES: Normal reaction of pupils, equal size. Conjunctiva pink, sclera white. NOSE: Clear with pink turbinates. THROAT: No erythema or exudates. NECK: No masses, no JVD, no thyroid enlargement, no adenopathy. CHEST: No chest wall deformity. Symmetrical expansion. LUNGS: Equal air entry with diffuse crackles CVS: Regular rate and rhythm, normal S1 and S2, no gallops, no murmurs, no rubs ABDOMEN: Soft, nontender. No hepatosplenomegaly, normal bowel sounds, no guarding or rigidity. EXTREMITIES: No clubbing, no edema, no cyanosis, 2+ pulses and upper and lower extremities. MUSCULOSKELETAL: Muscle strength and tone normal. SPINE: No scoliosis or deformity SKIN: No rashes CENTRAL NERVOUS SYSTEM: Alert and oriented -1. No focal deficits, tone is normal in all 4 extremities. Unable to assess orientation at this time patient on BiPAP support, unable to answer questions related to increased work of breathing. The patient is currently on Precedex running at 0.5 mg/kg/m. - Labs CBC & Chem 7: 06/14/20 19:30 06/14/20 19:30 Labs: Abnormal Lab Results - Last 24 Hours (Table) 06/14/20 06/14/20 06/14/20 Range/Units 10:18 11:29 11:45 D-Dimer (<0.60) mg/L FEU ABG pH 7.48 H (7.35-7.45) ABG pO2 59 L* (83-108) mmHg ABG HCO3 28 H (21-25) mmol/L ABG Total CO2 29 H (19-24) mmol/L ABG O2 Saturation 90.8 L (94-97) % Sodium (137-145) mmol/L Chloride (98-107) mmol/L Carbon Dioxide (22-30) mmol/L BUN (7-17) mg/dL Glucose (74-99) mg/dL POC Glucose (mg/dL) 153 H (75-99) mg/dL AST (14-36) U/L Ammonia (<30) umol/L C-Reactive Protein (<10.0) mg/L Albumin (3.5-5.0) g/dL Vitamin B12 (200.0-944.0) pg/mL TSH (0.465-4.680) mIU/L CSF Glucose 79 H (40-70) mg/dL CSF Total Protein 66 H (12-60) mg/dL 06/14/20 06/14/20 06/14/20 Range/Units 13:21 13:23 13:23 D-Dimer (<0.60) mg/L FEU ABG pH (7.35-7.45) ABG pO2 (83-108) mmHg ABG HCO3 (21-25) mmol/L ABG Total CO2 (19-24) mmol/L ABG O2 Saturation (94-97) % Sodium (137-145) mmol/L Chloride (98-107) mmol/L Carbon Dioxide (22-30) mmol/L BUN (7-17) mg/dL Glucose (74-99) mg/dL POC Glucose (mg/dL) 184 H (75-99) mg/dL AST (14-36) U/L Ammonia 32 H (<30) umol/L C-Reactive Protein (<10.0) mg/L Albumin (3.5-5.0) g/dL Vitamin B12 2829.0 H (200.0-944.0) pg/mL TSH 0.263 L (0.465-4.680) mIU/L CSF Glucose (40-70) mg/dL CSF Total Protein (12-60) mg/dL 06/14/20 06/14/20 06/14/20 Range/Units 14:44 15:58 17:22 D-Dimer (<0.60) mg/L FEU ABG pH (7.35-7.45) ABG pO2 (83-108) mmHg ABG HCO3 (21-25) mmol/L ABG Total CO2 (19-24) mmol/L ABG O2 Saturation (94-97) % Sodium (137-145) mmol/L Chloride (98-107) mmol/L Carbon Dioxide (22-30) mmol/L BUN (7-17) mg/dL Glucose (74-99) mg/dL POC Glucose (mg/dL) 158 H 164 H 163 H (75-99) mg/dL AST (14-36) U/L Ammonia (<30) umol/L C-Reactive Protein (<10.0) mg/L Albumin (3.5-5.0) g/dL Vitamin B12 (200.0-944.0) pg/mL TSH (0.465-4.680) mIU/L CSF Glucose (40-70) mg/dL CSF Total Protein (12-60) mg/dL 06/14/20 06/14/20 06/14/20 Range/Units 18:35 19:30 19:30 D-Dimer >34.10 H (<0.60) mg/L FEU ABG pH (7.35-7.45) ABG pO2 (83-108) mmHg ABG HCO3 (21-25) mmol/L ABG Total CO2 (19-24) mmol/L ABG O2 Saturation (94-97) % Sodium 151 H (137-145) mmol/L Chloride 117 H (98-107) mmol/L Carbon Dioxide 21 L (22-30) mmol/L BUN 63 H (7-17) mg/dL Glucose 169 H (74-99) mg/dL POC Glucose (mg/dL) 181 H (75-99) mg/dL AST 83 H (14-36) U/L Ammonia (<30) umol/L C-Reactive Protein (<10.0) mg/L Albumin 3.4 L (3.5-5.0) g/dL Vitamin B12 (200.0-944.0) pg/mL TSH (0.465-4.680) mIU/L CSF Glucose (40-70) mg/dL CSF Total Protein (12-60) mg/dL 06/14/20 06/14/20 06/14/20 Range/Units 19:38 20:57 21:58 D-Dimer (<0.60) mg/L FEU ABG pH (7.35-7.45) ABG pO2 (83-108) mmHg ABG HCO3 (21-25) mmol/L ABG Total CO2 (19-24) mmol/L ABG O2 Saturation (94-97) % Sodium (137-145) mmol/L Chloride (98-107) mmol/L Carbon Dioxide (22-30) mmol/L BUN (7-17) mg/dL Glucose (74-99) mg/dL POC Glucose (mg/dL) 166 H 167 H 202 H (75-99) mg/dL AST (14-36) U/L Ammonia (<30) umol/L C-Reactive Protein (<10.0) mg/L Albumin (3.5-5.0) g/dL Vitamin B12 (200.0-944.0) pg/mL TSH (0.465-4.680) mIU/L CSF Glucose (40-70) mg/dL CSF Total Protein (12-60) mg/dL 06/14/20 06/15/20 06/15/20 Range/Units 22:56 00:05 01:15 D-Dimer (<0.60) mg/L FEU ABG pH (7.35-7.45) ABG pO2 (83-108) mmHg ABG HCO3 (21-25) mmol/L ABG Total CO2 (19-24) mmol/L ABG O2 Saturation (94-97) % Sodium (137-145) mmol/L Chloride (98-107) mmol/L Carbon Dioxide (22-30) mmol/L BUN (7-17) mg/dL Glucose (74-99) mg/dL POC Glucose (mg/dL) 192 H 161 H 155 H (75-99) mg/dL AST (14-36) U/L Ammonia (<30) umol/L C-Reactive Protein (<10.0) mg/L Albumin (3.5-5.0) g/dL Vitamin B12 (200.0-944.0) pg/mL TSH (0.465-4.680) mIU/L CSF Glucose (40-70) mg/dL CSF Total Protein (12-60) mg/dL 06/15/20 06/15/20 06/15/20 Range/Units 02:23 03:03 04:14 D-Dimer (<0.60) mg/L FEU ABG pH (7.35-7.45) ABG pO2 (83-108) mmHg ABG HCO3 (21-25) mmol/L ABG Total CO2 (19-24) mmol/L ABG O2 Saturation (94-97) % Sodium (137-145) mmol/L Chloride (98-107) mmol/L Carbon Dioxide (22-30) mmol/L BUN (7-17) mg/dL Glucose (74-99) mg/dL POC Glucose (mg/dL) 159 H 141 H 104 H (75-99) mg/dL AST (14-36) U/L Ammonia (<30) umol/L C-Reactive Protein (<10.0) mg/L Albumin (3.5-5.0) g/dL Vitamin B12 (200.0-944.0) pg/mL TSH (0.465-4.680) mIU/L CSF Glucose (40-70) mg/dL CSF Total Protein (12-60) mg/dL 06/15/20 06/15/20 06/15/20 Range/Units 04:20 04:20 05:22 D-Dimer >34.10 H (<0.60) mg/L FEU ABG pH (7.35-7.45) ABG pO2 (83-108) mmHg ABG HCO3 (21-25) mmol/L ABG Total CO2 (19-24) mmol/L ABG O2 Saturation (94-97) % Sodium (137-145) mmol/L Chloride (98-107) mmol/L Carbon Dioxide (22-30) mmol/L BUN (7-17) mg/dL Glucose (74-99) mg/dL POC Glucose (mg/dL) 102 H (75-99) mg/dL AST (14-36) U/L Ammonia (<30) umol/L C-Reactive Protein 67.7 H (<10.0) mg/L Albumin (3.5-5.0) g/dL Vitamin B12 (200.0-944.0) pg/mL TSH (0.465-4.680) mIU/L CSF Glucose (40-70) mg/dL CSF Total Protein (12-60) mg/dL 06/15/20 06/15/20 Range/Units 06:31 07:55 D-Dimer (<0.60) mg/L FEU ABG pH (7.35-7.45) ABG pO2 (83-108) mmHg ABG HCO3 (21-25) mmol/L ABG Total CO2 (19-24) mmol/L ABG O2 Saturation (94-97) % Sodium (137-145) mmol/L Chloride (98-107) mmol/L Carbon Dioxide (22-30) mmol/L BUN (7-17) mg/dL Glucose (74-99) mg/dL POC Glucose (mg/dL) 109 H 128 H (75-99) mg/dL AST (14-36) U/L Ammonia (<30) umol/L C-Reactive Protein (<10.0) mg/L Albumin (3.5-5.0) g/dL Vitamin B12 (200.0-944.0) pg/mL TSH (0.465-4.680) mIU/L CSF Glucose (40-70) mg/dL CSF Total Protein (12-60) mg/dL Microbiology - Last 24 Hours (Table) 06/14/20 11:30 CSF Gram Stain - Preliminary Cerebral Spinal Fluid CSF Culture - Preliminary Assessment and Plan Plan: #1. Acute hypoxic respiratory failure related to acute COVID 19 pneumonia, with onset of symptoms 3 weeks ago, tested positive in the emergency department on 06/07/2020, was outside the window for BAM, was sent home on Decadron and vitamins. Returned for reevaluation worsening symptoms and worsening hypoxia. Tocilizumab was given in addition to Decadron. The patient is currently on BiPAP. Current pressures of 14/7 cm of water with an FiO2 of 100%. Chest x-ray diffuse infiltrates that with pneumonia. Inflammatory markers are quite elevated. The patient remains encephalopathic and the patient probably is going through Covid encephalopathy. No agitation. Neurologic exam is nonfocal. On today's evaluation of 06/15/2020, the patient's condition is been essentially unchanged and the patient is very much BiPAP dependent and taken off the BiPAP mask will make it easily and rapidly desaturate. Her chest x-ray will be ordered. Labs will be also ordered. The patient is currently on Precedex regarding her encephalopathy and will use of Precedex the patient has become qu ite synchronous with the BiPAP machine. Precedex is currently running at 0.5 mg/kg/m. On today's evaluation, the patient is quite sedated and was suggested to wean off the Precedex drip. #2. Increased inflammatory markers and d-dimer related to the above #3. Troponin leak, we'll follow serial troponins, likely secondary to Covid 19 related infection #4. Altered mental status, brain CT and angiogram of the brain negative, possibly related to metabolic encephalopathy/Covid 19 encephalopathy. Lumbar puncture was done and the patient was found to have some mild elevation of the protein. No evidence of any bacterial meningitis. Rule out metabolic encephalopathy. Covid 19 encephalopathy is also considered in this patient. #5. Aphasia, rule out possibility of a stroke, neurology consultation has been requested, patient was not a candidate for TPA #6. Hypertension #7. Hyperlipidemia #8. Diabetes multiple's type II, started on Levemir insulin for blood sugar control. Insulin drip will be gradually weaned off. #9. History of breast cancer with history of right mastectomy #10 Anxiety #11 Former smoker #12 hyperchloremic hypernatremia , sodium levels are pending #13 generalized global weakness in all 4 extremities and the neurologic exam is nonfocal. Could be a complication of malignancy related infection. Plan: Continue BiPAP for respiratory support, , BiPAP of 14/7 with an FiO2 of 100%. Repeat chest x-ray Keep the patient on Precedex and wean the drip down to maintain adequate level of alertness. Monitor respiratory status Transfer the patient to the intensive care unit Lumbar puncture results were noted Encephalopathy is obviously concern. Neurology evaluation was noted Treatment with Il-6 MAB, Tocilizumab, continue Decadron, Lovenox 40 mg daily, continue Pepcid, continue IV fluids and the patient will be switched to D50.45 nss water at the r ate of 125 mL an hour Lantus insulin at 20 units bedtime Repeat labs will follow her clinical course closely obtain follow-up troponins, LDH, ferritin Patient is critically ill and will continue to follow make further recommendations based on her progress Awaiting transfer to the ICU Critically care evaluation for more than 30 minutes Time with Patient: Greater than 30
[2020-06-15 09:42] LABS: Albumin 3.1 g/dL (3.5-5.0); Basophils % (A) 0 %; Calcium 8.9 mg/dL (8.4-10.2); Eosinophils % (A) 0 %; HCT 34.2 % (34.0-46.0); HGB 11.6 gm/dL (11.4-16.0); Lymphocytes # (A) 0.5 k/uL (1.0-4.8); Lymphocytes % (A) 5 %; MCH 30.7 pg (25.0-35.0); MCHC 33.8 g/dL (31.0-37.0); MCV 90.9 fL (80.0-100.0); Mean Platelet Volume 7.5; Monocytes # (A) 0.2 k/uL (0-1.0); Monocytes % (A) 2 %; Neutrophils # (A) 8.3 k/uL (1.3-7.7); Neutrophils % (A) 92 %; Platelet Count 313 k/uL (150-450); Potassium 3.4 mmol/L (3.5-5.1); RBC 3.76 m/uL (3.80-5.40); RDW 13.4 % (11.5-15.5); Total Bilirubin 0.6 mg/dL (0.2-1.3); Total Protein 6.1 g/dL (6.3-8.2); WBC 9.1 k/uL (3.8-10.6)
--- NOTE | 2020-06-15 09:58 | XR ---
EXAMINATION TYPE: XR chest 1V portable DATE OF EXAM: 06/15/2020 Comparison: 06/14/2020 Clinical History: 69-year-old female covid Findings: Heart upper limits of normal in size. Bilateral patchy airspace opacities, confluence in the left mid lung. No pneumothorax or pleural effusion. Impression: Unchanged left greater than right COVID pneumonia.
[2020-06-15 10:18] LABS: ABG Base Excess 1.9 mmol/L; ABG HCO3 25 mmol/L (21-25); ABG Oxygen Saturation 97.2 % (94-97); ABG PCO2 34 mmHg (35-45); ABG PH 7.48 (7.35-7.45); ABG PO2 99 mmHg (83-108); ABG TCO2 26 mmol/L (19-24); Allen Test Performed? Yes
[2020-06-15] MEDS: DEXAMETHASONE SOD PHOSPHATE 10 MG/ML 1 ML VIAL IV SCH (10:25)
[2020-06-15 10:34] LABS: Glucose,Whole Blood 152 mg/dL (75-99)
[2020-06-15] MEDS: ENOXAPARIN 60 MG/0.6 ML SYRINGE SQ SCH (10:45)
[2020-06-15 12:40] LABS: Glucose,Whole Blood 168 mg/dL (75-99)
[2020-06-15 14:37] LABS: Glucose,Whole Blood 215 mg/dL (75-99)
--- NOTE | 2020-06-15 18:28 | EEG ---
ELECTROENCEPHALOGRAM REPORT DATE OF SERVICE: 06/15/2020. CLINICAL HISTORY: This is a 69-year-old woman with recent diagnosis of COVID-19 pneumonia who has altered mental status. This EEG is obtained to evaluate for seizure and epileptiform activity. RELEVANT MEDICATION: The patient is not on any antiepileptic drug. EEG TYPE: A routine 21-channel EEG is performed with video using the 10/20 electrode placement system. DESCRIPTION: Wakefulness and drowsiness are obtained. During wakefulness, the background consists of 6 hertz theta activity. At times, the background consists of 1-2 hertz delta activity. There is no physiological stage II sleep. There is no focal slowing seen. Interictal and ictal is none. ACTIVATION PROCEDURES: Photic stimulation and hyperventilation are not performed because of the patient's COVID-19 status. CLINICAL INTERPRETATION: This is an abnormal routine EEG. The background slowing is suggestive of moderate to severe encephalopathy. There are no focal slowing, epileptiform discharges or seizure over the EEG. Clinical correlation is recommended. ALEJANDRA / FLAQUITO: [id number] / RADHA
[2020-06-15 18:55] LABS: Glucose,Whole Blood 219 mg/dL (75-99)
--- NOTE | 2020-06-15 20:36 | P.PN ---
Progress Note - Text Progress Note Date: 06/15/20 Chief Complaint: Short of breath History of presenting complaint: This is a 69-year-old patient who follows with Dr. blake . Patient was last seen in the ER about 5 days ago. She then had an having respiratory symptoms including cough for about 2 or 3 weeks prior to that. On this presentation is patient is altered sense. She was last seen normal at home on Sunday. EMS was called out and they found the patient to be hypoxic with 46%. Patient was ventilated with a bag valve and pulse oxygenation improved. He was placed on a nonrebreather and brought here. Here patient's problem of BiPAP. And is somewhat delirious. Not able to give any history. Patient chronic stable medical conditions include diabetes, hypertension, hyperlipidemia, history of breast cancer with right mastectomy. No family members currently present. Admitted with acute severe bilateral COVID 19 pneumonia, acute severe hypoxic respiratory failure, acute metabolic encephalopathy, with delirium. Patient placed on oxygen. Decadron. Lovenox. Consultation to neurology, pulmonary. Lumbar puncture/CSF unremarkable. Today-laying in bed. On BiPAP. 14/7/100%. Awake but a bit delirious. Precedex is being weaned off. Review of systems: Cannot be obtained as patient unable to talk/delirious Active Medications Acetaminophen (Acetaminophen Suppository 650 Mg Supp) 650 mg RECTAL Q4HR PRN PRN Reason: Fever And/ Or Mild Pain Last Admin: 06/13/20 21:46 Dose: 650 mg Documented by: Amlodipine Besylate (Amlodipine 5 Mg Tab) 5 mg PO BID [facility] Last Admin: 06/15/20 08:00 Dose: Not Given Documented by: Ascorbic Acid (Ascorbic Acid 500 Mg Tab) 1,000 mg PO DAILY [facility] Last Admin: 06/15/20 08:00 Dose: Not Given Documented by: Atorvastatin Calcium (Atorvastatin 10 Mg Tab) 10 mg PO HS [facility] Last Admin: 06/14/20 21:00 Dose: Not Given Documented by: Cholecalciferol (Cholecalciferol 25 Mcg (1000 Iu) Tablet) 25 mcg PO DAILY [facility] Last Admin: 06/15/20 08:00 Dose: Not Given Documented by: Clonidine HCl (Clonidine 0.1 Mg/24hr Patch) 1 patch TRANSDERM Q7D [facility] Last Admin: 06/12/20 20:19 Dose: 1 patch Documented by: Dexamethasone Sodium Phosphate (Dexamethasone Sod Phosphate 10 Mg/Ml 1 Ml Vial) 6 mg IV DAILY [facility] Last Admin: 06/15/20 10:25 Dose: 6 mg Documented by: Enoxaparin Sodium (Enoxaparin 60 Mg/0.6 Ml Syringe) 45 mg SQ Q12H [facility] Last Admin: 06/15/20 10:45 Dose: 45 mg Documented by: Famotidine (Famotidine 20 Mg/2 Ml Vial) 20 mg IV Q12HR [facility] Last Admin: 06/15/20 08:07 Dose: 20 mg Documented by: Gabapentin (Gabapentin 300 Mg Cap) 600 mg PO BID [facility] Last Admin: 06/15/20 08:00 Dose: Not Given Documented by: Lisinopril/HCTZ (Lisinopril-Hctz 20-25 Mg 1 Each Tab) 1 each PO DAILY [facility] Last Admin: 06/15/20 08:01 Dose: Not Given Documented by: Insulin Human Regular 100 unit (/ Sodium Chloride) 101 mls @ 0 mls/hr IV .Q0M [facility]; Protocol Last Admin: 06/15/20 01:17 Dose: 2 units/hr, 2.02 mls/hr Documented by: Dextrose/Sodium Chloride (Dextrose 5%-1/2ns Iv Soln) 1,000 mls @ 125 mls/hr IV .Q8H [facility] Last Admin: 06/15/20 06:50 Dose: 125 mls/hr Documented by: Insulin Detemir (Insulin Detemir (Levemir) 100 Unit/Ml Syr) 20 unit SQ HS [facility] Last Admin: 06/14/20 22:04 Dose: 20 unit Documented by: Insulin Human Regular (Insulin Regular Bolus (From Drip Bag)) 8.9 unit 0.1 unit/kg (8.9 unit) IV ONCE PRN PRN Reason: Blood Sugar - High Last Admin: 06/13/20 19:35 Dose: 8.9 unit Documented by: Naloxone HCl (Naloxone 0.4 Mg/Ml 1 Ml Vial) 0.2 mg IV Q2M PRN PRN Reason: Opioid Reversal Sertraline HCl (Sertraline 50 Mg Tab) 50 mg PO DAILY [facility] Last Admin: 06/15/20 08:01 Dose: Not Given Documented by: Past medical history to include: Breast cancer with mastectomy, diabetes, hypertension, hyperlipidemia, anxiety Social history: Former smoker. Lives alone. Family history: Patient cannot tell Physical examination: VITAL SIGNS: 98.2, 48, 23, 140/67, 98% on the BiPAP GENERAL: BiPAP, laying in bed, sedated LUNGS:[ Respiratory rate increased, using accessory muscles. PSYCH: Unable to assess. Rest of the exam per pulmonary and nursing INVESTIGATIONS, reviewed in the clinical context: June 15: WBC 9.1 hemoglobin 11.6 sodium 151 potassium 3.4 creatinine 0.86 June 14: WBC 6.6 hemoglobin 12.5 platelets 370 sodium 154 potassium 4.3 creatinine 0.94 June 13: D-dimer 2.13 ABG pH 7.39 pCO2 45 pO2 68 CRP 356 troponin I 0.190 WBC 7.3 hemoglobin 11.8 platelets 357 ABG: PH 7.45 pCO2 32, pO2 79 Potassium 3.9 creatinine 1.0 blood glucose 321 Troponin I 0.104 CRP 334 EKG tracing personally reviewed by me-normal sinus rhythm, nonspecific ST segment changes Chest x-ray film personally reviewed by me-bilateral infiltrate severe CT angio chest: Bilateral diffuse patchy groundglass opacities and consolidation. CTA head and neck: Negative Computed tomography scan of the brain: Negative Assessment and plan: -Acute severe bilateral COVID 19 pneumonia, diagnosed 5 days before admission, with symptoms present 2-3 weeks prior to that.-Not improving on IV dexamethasone, subcu Lovenox, vitamin C vitamin D Pepcid zinc. ACTEMRA -Acute severe hypoxic respiratory failure, secondary to COVID 19 pneumonia-not improving Remains on BiPAP-100%. -Acute delirium and acute metabolic encephalopathy from COVID 19 pneumonia Follow closely. -Diabetes mellitus type 2 on oral hypoglycemic, uncontrolled with hyperglycemia secondary to steroids Hold off oral hypoglycemic. On insulin drip-changed to Levemir 20 units subcu daily at bedtime -Essential hypertension Not able to tolerate oral medications. - Catapres patch 0.1 -Diabetic peripheral neuropathy Resume gabapentin when able to tolerate by mouth -Hyperlipidemia Resume Mevacor unable to tolerate by mouth -Patient underwent lumbar puncture. CSF benign. -Significant hypernatremia with hyperchloremia.-Slow to respond Increase D5 0.45- up to 1 50 mL an hour. Prognosis guarded. Follow with consultants
[2020-06-15] MEDS: ATORVASTATIN 10 MG TAB PO SCH (21:37)
[2020-06-15] MEDS: INSULIN DETEMIR (LEVEMIR) 100 UNIT/ML SYR SQ SCH (22:08)
[2020-06-15 22:10] LABS: Glucose,Whole Blood 251 mg/dL (75-99)
[2020-06-15] MEDS: MORPHINE SULFATE 2 MG/ML SYRINGE IVP PRN (23:15)
[2020-06-16] MEDS: DEXTROSE 5%-0.45% NACL 1,000 ML IV SCH ×4 (00:21→20:48)
[2020-06-16 03:03] LABS: Glucose,Whole Blood 218 mg/dL (75-99)
[2020-06-16] MEDS: ENOXAPARIN 60 MG/0.6 ML SYRINGE SQ SCH ×3 (03:23→23:57)
[2020-06-16 04:14] LABS: Glucose,Whole Blood 225 mg/dL (75-99)
[2020-06-16 04:50] LABS: Basophils # (A) 0.1 k/uL (0-0.2); Basophils % (A) 1 %; Eosinophils # (A) 0.1 k/uL (0-0.7); Eosinophils % (A) 1 %; HCT 37.1 % (34.0-46.0); HGB 11.5 gm/dL (11.4-16.0); Lymphocytes # (A) 0.6 k/uL (1.0-4.8); Lymphocytes % (A) 7 %; MCH 28.8 pg (25.0-35.0); MCHC 31.1 g/dL (31.0-37.0); MCV 92.7 fL (80.0-100.0); Mean Platelet Volume 7.5; Monocytes # (A) 0.2 k/uL (0-1.0); Monocytes % (A) 2 %; Neutrophils # (A) 7.3 k/uL (1.3-7.7); Neutrophils % (A) 88 %; Platelet Count 334 k/uL (150-450); WBC 8.4 k/uL (3.8-10.6)
[2020-06-16 05:04] LABS: Glucose,Whole Blood 221 mg/dL (75-99)
[2020-06-16 05:17] LABS: ALT 52 U/L (4-34); AST 101 U/L (14-36); African American GFR (CKD) >90 (>60 ml/min/1.73 sqM); Albumin 3.2 g/dL (3.5-5.0); Alkaline Phosphatase 98 U/L (38-126); Anion Gap 8 mmol/L; Blood Urea Nitrogen 36 mg/dL (7-17); C Reactive Protein 41.5 mg/L (<10.0); Carbon Dioxide 25 mmol/L (22-30); Chloride 112 mmol/L (98-107); Glucose 226 mg/dL (74-99); Non-African American GFR(CKD) 84 (>60 ml/min/1.73 sqM); Potassium 3.5 mmol/L (3.5-5.1); Sodium 145 mmol/L (137-145); Total Bilirubin 0.6 mg/dL (0.2-1.3); Total Protein 6.1 g/dL (6.3-8.2)
[2020-06-16 05:25] LABS: LDH 3339 U/L (313-618)
[2020-06-16 06:23] LABS: Glucose,Whole Blood 239 mg/dL (75-99)
[2020-06-16 07:11] LABS: Glucose,Whole Blood 244 mg/dL (75-99)
[2020-06-16 07:59] LABS: Glucose,Whole Blood 254 mg/dL (75-99)
[2020-06-16] MEDS: INSULIN ASPART (NovoLOG) 100 UNIT/ML VIAL SQ SCH ×4 (08:00→23:55)
[2020-06-16 09:08] LABS: Glucose,Whole Blood 250 mg/dL (75-99)
[2020-06-16] MEDS: amLODIPine 5 MG TAB PO SCH ×2 (09:09→22:12)
[2020-06-16] MEDS: ASCORBIC ACID 500 MG TAB PO SCH (09:09)
[2020-06-16] MEDS: CHOLECALCIFEROL 25 MCG (1000 IU) TABLET PO SCH (09:09)
[2020-06-16] MEDS: SERTRALINE 50 MG TAB PO SCH (09:10)
[2020-06-16] MEDS: LISINOPRIL-HCTZ 20-25 MG 1 EACH TAB PO SCH (09:10)
[2020-06-16] MEDS: GABAPENTIN 300 MG CAP PO SCH ×2 (09:10→22:12)
[2020-06-16] MEDS: DEXAMETHASONE SOD PHOSPHATE 10 MG/ML 1 ML VIAL IV SCH (09:14)
[2020-06-16] MEDS: FAMOTIDINE 20 MG/2 ML VIAL IV SCH ×2 (09:14→23:55)
--- NOTE | 2020-06-16 09:35 | XR ---
EXAMINATION TYPE: XR chest 1V portable DATE OF EXAM: 06/16/2020 COMPARISON: Chest x-ray 06/15/2020 HISTORY: Covid, abnormal chest x-ray TECHNIQUE: Single frontal view of the chest is obtained. FINDINGS: Bilateral airspace disease is again seen. There is no evident pneumothorax or pleural effu christina. Cardiac mediastinal silhouette is stable. There are overlying leads. IMPRESSION: Stable findings. Correlate for pneumonia.
[2020-06-16] MEDS: MORPHINE SULFATE 2 MG/ML SYRINGE IVP PRN (09:37)
--- NOTE | 2020-06-16 10:14 | P.PN ---
Subjective Progress Note Date: 06/16/20 69-year-old white female patient who presented to the emergency department on 06/12/2020 at 1400 in the afternoon with complaints of shortness of breath, and her first onset of symptoms was approximately 2-3 weeks ago. She tested positive for COVID 19 on 06/07/2020. Patient was seen in the emergency department at that time, and was having symptoms of fatigue, shortness of breath and cough. She does have multiple comorbidities including hypertension, diabetes mellitus, dyslipidemia, history of breast cancer, patient is a former smoker. Was outside the window for monoclonal antibody, she was sent home on Decadron, and vitamins. Chest x-ray at that time showed interstitial infiltrates. Patient returned with worsening symptoms, chest x-ray on the 2020 showed interval bilateral diffuse infiltrates. In addition patient was confused, on arrival of the EMS to the scene patient was severely hypoxemic with a pulse ox of only 46%. She was bagged valve ventilated with improvement in her oxygen, she was placed on BiPAP support. Brain CT showed no acute intracranial abnormality. Angiography CT showed no acute abnormality of the head/neck, and a moderate stenosis of the right proximal ICA. CBC was positive for lymphopenia with lymphocyte count 0.6, d-dimer was 1.36, sodium is 143, potassium is 3.9, chloride is 108, CO2 22, BUN is 50, creatinine is 1, glucose level was 321, plasma lactic acid is 1.3, AST was 84, ALT was 31, alk phos was 50, troponin was 0.104, CRP was 334. Patient was started on IV Decadron in the emergency department, she remains on BiPAP support, currently at pressures of 12 and 6 and FiO2 100%, she appears to have increased work of breathing, she is not able to answer questions related to dyspnea, repeat blood gas was done showing pO2 of 68, pCO2 45, pH of 7.39 and subsequently her BiPAP settings were adjusted to 14/7 and FiO2 100%, patient is awaiting a bed in the intensive care unit, she is awake and alert, she did answer some simple questions yes or no for me while on BiPAP support, we'll start the patient on IL-6 MAB, Tocilizumab. We'll continue to closely follow her clinical course, continues to deteriorate patient required intubation and placement on mechanical ventilatory supp On today's evaluation of 06/14/2020 the patient is being seen for a follow-up regarding acute hypoxic respiratory failure and COVID 19 pneumonia. The patient was status post positive on 06/07/2020 and the patient was symptomatic prior to that. The patient presented with hypoxic respiratory failure and the patient was placed on a BiPAP which is currently at the pressure of 14/7 cm of water and FiO2 of 900%. Chest x-ray showing bilateral patchy by troponin infiltrates consistent with pneumonia. The patient was started on steroids and Tocilizumab was ordered. The patient is having increased shortness of breath even while on the BiPAP. The patient is quite dyspneic even while on the BiPAP and is unable to complete full sentences. Blood gases from yesterday was noted. CT angiogram of the head and neck showed moderate stenosis of the right proximal ICA. CAT scan of the brain was negative., CRP of 356, troponin was 0.19 and the patient's d-dimer was 2.13. The patient is currently on Decadron 6 mg IV every 24 hours. The patient is on Lovenox 40 mg subcu every 24 hours. The patient on Levemir insulin 20 units daily at bedtime that was started yesterday the patient will be taken off the insulin drip. Currently the patient is also on various hypertensive medications including Zestoretic and Kl clonidine patch and Norvasc. neurologically, the patient is still quite somnolent. She is moving all 4 extremities. No neck stiffness. This encephalopathy is probably related to Covid 19 infection. Neuro is also on the case. His blood work, the sodium level is at 154 with a BUN of 61 and creatinine of 0.9. The patient on IV fluid and currently receiving 0.9 at the rate of 100 mL an hour. On 06/15/2020, the patient is being seen in follow-up in the intensive care unit. This is a case of 69-year-old female patient with Covid associated pneumonia. The patient remains in the emergency department awaiting her bed in the ICU. Currently she is on a BiPAP at a pressure of 14/7 cm of water with an FiO2 of 100%. The patient is quite synchronous and tolerated the BiPAP treatment. Her current tidal volume generated is around 840 mL with a respiratory rate of 29 and a minute ventilation of 23. Chest x-ray from today has not been done and this is supposed to be repeated. The chest x-ray from y was showing diffuse bilaterally pulmonary infiltrates more so in the left perihilar area. No new blood gases. D-dimer is today at 34 and the CRP level is at 67. LDH is still pending for now. Neurologically, the patient is still lethargic and somnolent and encephalopathic. She is on Precedex running at 0.5 mcg/kg per minute. Lumbar puncture was done yesterday and the patient was found to have a CSF RBC of 7, nucleated cells were only a 2, glucose was 79 and the protein was slightly elevated at 66. This is not consistent with bacterial meningitis. It may be consistent with viral encephalopathy. Gram stain of the CSF was negative. Cultures are also negative. I would say clin ically she is essentially unchanged. She is more comfortable while being on Precedex. She is hemodynamically stable and she is afebrile. She is still receiving IV fluids in the form of D5 half-normal saline at the rate of 1 25 mL an hour. She is currently off the insulin drip. Her blood sugar is at 128 and the patient is on Levemir insulin 20 units daily at bedtime along with a sliding scale coverage. The patient's renal function currently is stable with a BUN of 63 and a creatinine of 0.8. Sodium level was improving and his sodium level was on the decline it was already down to 151. 06/16/2020, the patient remains on a BiPAP in the emergency department a pressure of 14/7 and FiO2 is currently at 80% and her current pulse ox is around 96%. Her generated tidal volume is around 816 with a respiratory rate of 30 and a minute volume of 25 L per minute. I took her off the Precedex yesterday the patient was quite lethargic. This morning, she is more arousable. She is extremely weak. She is following some simple commands. She is wiggling her toes and moving her arms upon demand. She cannot hold a conversation as the patient is very much BiPAP dependent at this point in time. She easily desaturates once she is off the BiPAP. She is hemodynamically stable for now. The chest x-ray showing bilateral pulmonary infiltrates, slightly improved compared to yesterday. In terms of her blood work, the patient's blood sugars at 250. She is currently on D5 half-normal saline at the rate of 150 mL an hour. Her sodium level is improved and is down to 145 and a BUN is 36 with a creatinine of 0.7. Her CRP is down to 41. Her LDH level is up to 3339. Rest of the blood work and electrodes are all within normal limits and as mentioned the sodium level is improved and is down to 145. Her lumbar puncture was done and the findings are essentially related to Covid 19 encephalopathy. Case was discussed with neurology. As for the blood sugars, the patient's blood sugars are running in the mid 200s and the patient is on a sliding scale coverage. No major edema in lower extremities. Cardiac rhythm is sinus for now. Objective - Vital Signs Vital signs: Vital Signs Temp 98.2 F 06/15/20 08:17 Pulse 80 06/16/20 09:30 Resp 33 H 06/16/20 09:30 BP 166/95 06/16/20 09:30 Pulse Ox 95 06/16/20 09:30 Intake & Output 06/15/20 06/16/20 06/16/20 18:59 06:59 18:59 Intake Total 47.479 Output Total 300 Balance -252.521 Weight 89.267 kg Intake: Intake, IV Titration 47.479 Amount Dexmedetomidine/0.9% NaCl 47.479 (Pmx) 400 mcg In Empty Bag 1 bag @ Titrate IV . Q0M [facility] Rx#:[id number] Output: Urine 300 Other: # Voids 1 - Exam GENERAL EXAM:69-year-old white female on BiPAP support, currently with 14 and 7 and FiO2 80%, appears fatigued, short of breath, pulse ox is around 93% HEAD: Normocephalic/atraumatic. EYES: Normal reaction of pupils, equal size. Conjunctiva pink, sclera white. NOSE: Clear with pink turbinates. THROAT: No erythema or exudates. NECK: No masses, no JVD, no thyroid enlargement, no adenopathy. CHEST: No chest wall deformity. Symmetrical expansion. LUNGS: Equal air entry with diffuse crackles CVS: Regular rate and rhythm, normal S1 and S2, no gallops, no murmurs, no rubs ABDOMEN: Soft, nontender. No hepatosplenomegaly, normal bowel sounds, no guarding or rigidity. EXTREMITIES: No clubbing, no edema, no cyanosis, 2+ pulses and upper and lower extremities. MUSCULOSKELETAL: Muscle strength and tone normal. SPINE: No scoliosis or deformity SKIN: No rashes CENTRAL NERVOUS SYSTEM: Alert and oriented -1-2. No focal deficits, tone is normal in all 4 extremities. Unable to assess orientation at this time patient on BiPAP support, unable to answer questions related to increased work of breathing. She is having generalized weakness. Her motor strength has dropped significantly. No neck stiffness. Pupils are equal and reactive to light. No facial asymmetry. She will follow simple commands such as grabbing with her power ds and wiggling her toes. No significant anxiety or agitation and the patient is tolerating the BiPAP mask for now. - Labs CBC & Chem 7: 06/16/20 04:19 06/16/20 04:19 Labs: Abnormal Lab Results - Last 24 Hours (Table) 06/14/20 06/15/20 06/15/20 Range/Units 13:23 10:17 10:32 Lymphocytes # (1.0-4.8) k/uL D-Dimer (<0.60) mg/L FEU ABG pH 7.48 H (7.35-7.45) ABG pCO2 34 L (35-45) mmHg ABG Total CO2 26 H (19-24) mmol/L ABG O2 Saturation 97.2 H (94-97) % Chloride (98-107) mmol/L BUN (7-17) mg/dL Glucose (74-99) mg/dL POC Glucose (mg/dL) 152 H (75-99) mg/dL AST (14-36) U/L ALT (4-34) U/L Lactate Dehydrogenase (313-618) U/L C-Reactive Protein (<10.0) mg/L Total Protein (6.3-8.2) g/dL Albumin (3.5-5.0) g/dL RBC Folate 1,425 H (280 - 791) ng/mL 06/15/20 06/15/20 06/15/20 Range/Units 12:38 14:27 18:35 Lymphocytes # (1.0-4.8) k/uL D-Dimer (<0.60) mg/L FEU ABG pH (7.35-7.45) ABG pCO2 (35-45) mmHg ABG Total CO2 (19-24) mmol/L ABG O2 Saturation (94-97) % Chloride (98-107) mmol/L BUN (7-17) mg/dL Glucose (74-99) mg/dL POC Glucose (mg/dL) 168 H 215 H 219 H (75-99) mg/dL AST (14-36) U/L ALT (4-34) U/L Lactate Dehydrogenase (313-618) U/L C-Reactive Protein (<10.0) mg/L Total Protein (6.3-8.2) g/dL Albumin (3.5-5.0) g/dL RBC Folate (280 - 791) ng/mL 06/15/20 06/16/20 06/16/20 Range/Units 22:00 02:54 04:12 Lymphocytes # (1.0-4.8) k/uL D-Dimer (<0.60) mg/L FEU ABG pH (7.35-7.45) ABG pCO2 (35-45) mmHg ABG Total CO2 (19-24) mmol/L ABG O2 Saturation (94-97) % Chloride (98-107) mmol/L BUN (7-17) mg/dL Glucose (74-99) mg/dL POC Glucose (mg/dL) 251 H 218 H 225 H (75-99) mg/dL AST (14-36) U/L ALT (4-34) U/L Lactate Dehydrogenase (313-618) U/L C-Reactive Protein (<10.0) mg/L Total Protein (6.3-8.2) g/dL Albumin (3.5-5.0) g/dL RBC Folate (280 - 791) ng/mL 06/16/20 06/16/20 06/16/20 Range/Units 04:19 04:19 04:19 Lymphocytes # 0.6 L (1.0-4.8) k/uL D-Dimer >34.10 H (<0.60) mg/L FEU ABG pH (7.35-7.45) ABG pCO2 (35-45) mmHg ABG Total CO2 (19-24) mmol/L ABG O2 Saturation (94-97) % Chloride 112 H (98-107) mmol/L BUN 36 H (7-17) mg/dL Glucose 226 H (74-99) mg/dL POC Glucose (mg/dL) (75-99) mg/dL AST 101 H (14-36) U/L ALT 52 H (4-34) U/L Lactate Dehydrogenase 3339 H (313-618) U/L C-Reactive Protein 41.5 H (<10.0) mg/L Total Protein 6.1 L (6.3-8.2) g/dL Albumin 3.2 L (3.5-5.0) g/dL RBC Folate (280 - 791) ng/mL 06/16/20 06/16/20 06/16/20 Range/Units 05:00 06:21 07:08 Lymphocytes # (1.0-4.8) k/uL D-Dimer (<0.60) mg/L FEU ABG pH (7.35-7.45) ABG pCO2 (35-45) mmHg ABG Total CO2 (19-24) mmol/L ABG O2 Saturation (94-97) % Chloride (98-107) mmol/L BUN (7-17) mg/dL Glucose (74-99) mg/dL POC Glucose (mg/dL) 221 H 239 H 244 H (75-99) mg/dL AST (14-36) U/L ALT (4-34) U/L Lactate Dehydrogenase (313-618) U/L C-Reactive Protein (<10.0) mg/L Total Protein (6.3-8.2) g/dL Albumin (3.5-5.0) g/dL RBC Folate (280 - 791) ng/mL 06/16/20 06/16/20 Range/Units 07:57 09:01 Lymphocytes # (1.0-4.8) k/uL D-Dimer (<0.60) mg/L FEU ABG pH (7.35-7.45) ABG pCO2 (35-45) mmHg ABG Total CO2 (19-24) mmol/L ABG O2 Saturation (94-97) % Chloride (98-107) mmol/L BUN (7-17) mg/dL Glucose (74-99) mg/dL POC Glucose (mg/dL) 254 H 250 H (75-99) mg/dL AST (14-36) U/L ALT (4-34) U/L Lactate Dehydrogenase (313-618) U/L C-Reactive Protein (<10.0) mg/L Total Protein (6.3-8.2) g/dL Albumin (3.5-5.0) g/dL RBC Folate (280 - 791) ng/mL Microbiology - Last 24 Hours (Table) 06/14/20 11:30 CSF Gram Stain - Preliminary Cerebral Spinal Fluid CSF Culture - Preliminary Assessment and Plan Plan: #1. Acute hypoxic respiratory failure related to acute COVID 19 pneumonia, with onset of symptoms 3 weeks ago, tested positive in the emergency department on 06/07/2020, was outside the window for BAM, was sent home on Decadron and v itamins. Returned for reevaluation worsening symptoms and worsening hypoxia. Patient was treated with a combination of Decadron and Tocilizumab. The patient is currently on BiPAP. Current pressures of 14/7 cm of water with an FiO2 of 80%. Chest x-ray diffuse infiltrates that with pneumonia. Inflammatory markers are quite elevated. The patient remains encephalopathic and the patient probably is going through Covid encephalopathy. He was taken off Precedex. Lumbar puncture showed some mild elevation in the CSF protein which is consistent with viral encephalopathy. The patient is still BiPAP dependent. Chest x-ray shows some limited improvement compared to yesterday and the patient's inflammatory markers including the LDH is still elevated. She is quite weak and debilitated at this point in time. #2. Increased inflammatory markers and d-dimer related to the above #3. Troponin leak, we'll follow serial troponins, likely secondary to Covid 19 related infection #4. Altered mental status, brain CT and angiogram of the brain negative, possibly related to metabolic encephalopathy/Covid 19 encephalopathy. Lumbar puncture was done and the patient was found to have some mild elevation of the protein. No evidence of any bacterial meningitis. Rule out metabolic encephalopathy. Covid 19 encephalopathy is also considered in this patient. Patient is currently off Precedex #5. Aphasia, rule out possibility of a stroke, neurology consultation has been requested, patient was not a candidate for TPA #6. Hypertension #7. Hyperlipidemia #8. Diabetes multiple's type II, currently on D5 half-normal at the rate of 150 mL an hour and the patient is still running higher blood sugar #12 hyperchloremic hypernatremia , sodium levels are pending #13 generalized global weakness in all 4 extremities and the neurologic exam is nonfocal. Could be a complication of malignancy related infection. Plan: Continue BiPAP for respiratory support, , BiPAP of 14/7 with an FiO2 will be weaned down to 70% Repeat chest x-ray in the morning keep the patient off Precedex for now monitor respiratory status Transfer the patient to the intensive care unit Lumbar puncture results were noted Encephalopathy is obviously concern. Neurology evaluation was noted Treatment with Il-6 MAB, Tocilizumab, continue Decadron, Lovenox 40 mg daily, continue Pepcid, continue IV fluids and the patient will be switched to D50.45 nss water at the rate of 75cc/hr Lantus insulin at 10 units bedtime, along with a sliding scale coverage Repeat labs will follow her clinical course closely obtain follow-up troponins, LDH, ferritin Patient is critically ill and will continue to follow make further recommendations based on her progress Awaiting transfer to the ICU and is unable to find a bed in the ICU, I'm going to recommend selective unit for now. Critically care evaluation for more than 30 minutes Time with Patient: Greater than 30
[2020-06-16 10:16] LABS: Glucose,Whole Blood 266 mg/dL (75-99)
--- NOTE | 2020-06-16 12:04 | P.PN ---
Subjective Progress Note Date: 06/16/20 Patient was seen at bedside and per the patient nurse she's doing somewhat the same. She is on BiPAP machine. Per the nurse once she is off the BiPAP she desaturates. She has not had MRI of the brain since the patient is a BiPAP dependent and having very severe respiratory issues. An EEG on 06/15/2020 and the was an abnormal routine EEG. The background slowing is suggestive of moderate to severe encephalopathy. There are no focal slowing, perform discharges or seizure on the EEG. The blood sugar has been in the range in the 200s. White blood cell has been normal. AST of 100 one in the ALT of 52. Objective - Vital Signs Vital signs: Vital Signs Temp 98.2 F 06/15/20 08:17 Pulse 80 06/16/20 09:30 Resp 33 H 06/16/20 09:30 BP 166/95 06/16/20 09:30 Pulse Ox 95 06/16/20 09:30 Intake & Output 06/15/20 06/16/20 06/16/20 18:59 06:59 18:59 Intake Total 47.479 Output Total 300 Balance -252.521 Weight 89.267 kg Intake: Intake, IV Titration 47.479 Amount Dexmedetomidine/0.9% NaCl 47.479 (Pmx) 400 mcg In Empty Bag 1 bag @ Titrate IV . Q0M [facility] Rx#:[id number] Output: Urine 300 Other: # Voids 1 - Exam GENERAL: The patient is lying in bed and does seem in mild acute distress. LUNG: Clear to auscultation bilaterally no wheezing noted throughout. Not labored breathing. On BiPAP machine. NEUROLOGICAL: Limited. Took the BIPAP off for the examination. Higher mental function: The patient is awake, stated her name correctly otherwise not verbalizing. She is following simple commands such as showing a thumbs up and raising extremities to command. Could not assess for aphasia since exam was limited because of condition. Cranial nerves: Pupils are round, equal (3mm) bilaterally and reactive to light. Primary gaze is midline. No facial weakness. Rest of cranial nerves are limited because of condition. Motor: Gait is deferred. The strength is able to raise all extremities above gravity without drift. No spontaneous movement. Cerebellum: Could not assess. Sensation: Could not assess light touch. Reflexes (right/left): 1+ throughout. Plantars are downgoing bilaterally. Having the BiPAP off for 2 minutes eventually the patient oxygen saturation went down to low 80% and as result had to place her back on BiPAP - Labs CBC & Chem 7: 06/16/20 04:19 06/16/20 04:19 Labs: Abnormal Lab Results - Last 24 Hours (Table) 06/14/20 06/15/20 06/15/20 Range/Units 13:23 09:13 10:17 Lymphocytes # (1.0-4.8) k/uL D-Dimer (<0.60) mg/L FEU ABG pH 7.48 H (7.35-7.45) ABG pCO2 34 L (35-45) mmHg ABG Total CO2 26 H (19-24) mmol/L ABG O2 Saturation 97.2 H (94-97) % Sodium 151 H (137-145) mmol/L Potassium 3.4 L (3.5-5.1) mmol/L Chloride 118 H (98-107) mmol/L BUN 54 H (7-17) mg/dL Glucose 142 H (74-99) mg/dL POC Glucose (mg/dL) (75-99) mg/dL AST 85 H (14-36) U/L ALT 36 H (4-34) U/L Lactate Dehydrogenase 2969 H (313-618) U/L C-Reactive Protein (<10.0) mg/L Total Protein 6.1 L (6.3-8.2) g/dL Albumin 3.1 L (3.5-5.0) g/dL RBC Folate 1,425 H (280 - 791) ng/mL 06/15/20 06/15/20 06/15/20 Range/Units 10:32 12:38 14:27 Lymphocytes # (1.0-4.8) k/uL D-Dimer (<0.60) mg/L FEU ABG pH (7.35-7.45) ABG pCO2 (35-45) mmHg ABG Total CO2 (19-24) mmol/L ABG O2 Saturation (94-97) % Sodium (137-145) mmol/L Potassium (3.5-5.1) mmol/L Chloride (98-107) mmol/L BUN (7-17) mg/dL Glucose (74-99) mg/dL POC Glucose (mg/dL) 152 H 168 H 215 H (75-99) mg/dL AST (14-36) U/L ALT (4-34) U/L Lactate Dehydrogenase (313-618) U/L C-Reactive Protein (<10.0) mg/L Total Protein (6.3-8.2) g/dL Albumin (3.5-5.0) g/dL RBC Folate (280 - 791) ng/mL 06/15/20 06/15/20 06/16/20 Range/Units 18:35 22:00 02:54 Lymphocytes # (1.0-4.8) k/uL D-Dimer (<0.60) mg/L FEU ABG pH (7.35-7.45) ABG pCO2 (35-45) mmHg ABG Total CO2 (19-24) mmol/L ABG O2 Saturation (94-97) % Sodium (137-145) mmol/L Potassium (3.5-5.1) mmol/L Chloride (98-107) mmol/L BUN (7-17) mg/dL Glucose (74-99) mg/dL POC Glucose (mg/dL) 219 H 251 H 218 H (75-99) mg/dL AST (14-36) U/L ALT (4-34) U/L Lactate Dehydrogenase (313-618) U/L C-Reactive Protein (<10.0) mg/L Total Protein (6.3-8.2) g/dL Albumin (3.5-5.0) g/dL RBC Folate (280 - 791) ng/mL 06/16/20 06/16/20 06/16/20 Range/Units 04:12 04:19 04:19 Lymphocytes # (1.0-4.8) k/uL D-Dimer >34.10 H (<0.60) mg/L FEU ABG pH (7.35-7.45) ABG pCO2 (35-45) mmHg ABG Total CO2 (19-24) mmol/L ABG O2 Saturation (94-97) % Sodium (137-145) mmol/L Potassium (3.5-5.1) mmol/L Chloride 112 H (98-107) mmol/L BUN 36 H (7-17) mg/dL Glucose 226 H (74-99) mg/dL POC Glucose (mg/dL) 225 H (75-99) mg/dL AST 101 H (14-36) U/L ALT 52 H (4-34) U/L Lactate Dehydrogenase 3339 H (313-618) U/L C-Reactive Protein 41.5 H (<10.0) mg/L Total Protein 6.1 L (6.3-8.2) g/dL Albumin 3.2 L (3.5-5.0) g/dL RBC Folate (280 - 791) ng/mL 06/16/20 06/16/20 06/16/20 Range/Units 04:19 05:00 06:21 Lymphocytes # 0.6 L (1.0-4.8) k/uL D-Dimer (<0.60) mg/L FEU ABG pH (7.35-7.45) ABG pCO2 (35-45) mmHg ABG Total CO2 (19-24) mmol/L ABG O2 Saturation (94-97) % Sodium (137-145) mmol/L Potassium (3.5-5.1) mmol/L Chloride (98-107) mmol/L BUN (7-17) mg/dL Glucose (74-99) mg/dL POC Glucose (mg/dL) 221 H 239 H (75-99) mg/dL AST (14-36) U/L ALT (4-34) U/L Lactate Dehydrogenase (313-618) U/L C-Reactive Protein (<10.0) mg/L Total Protein (6.3-8.2) g/dL Albumin (3.5-5.0) g/dL RBC Folate (280 - 791) ng/mL 06/16/20 06/16/20 06/16/20 Range/Units 07:08 07:57 09:01 Lymphocytes # (1.0-4.8) k/uL D-Dimer (<0.60) mg/L FEU ABG pH (7.35-7.45) ABG pCO2 (35-45) mmHg ABG Total CO2 (19-24) mmol/L ABG O2 Saturation (94-97) % Sodium (137-145) mmol/L Potassium (3.5-5.1) mmol/L Chloride (98-107) mmol/L BUN (7-17) mg/dL Glucose (74-99) mg/dL POC Glucose (mg/dL) 244 H 254 H 250 H (75-99) mg/dL AST (14-36) U/L ALT (4-34) U/L Lactate Dehydrogenase (313-618) U/L C-Reactive Protein (<10.0) mg/L Total Protein (6.3-8.2) g/dL Albumin (3.5-5.0) g/dL RBC Folate (280 - 791) ng/mL Microbiology - Last 24 Hours (Table) 06/14/20 11:30 CSF Gram Stain - Preliminary Cerebral Spinal Fluid CSF Culture - Preliminary Assessment and Plan Assessment: Acute encephalopathy likely due to hypoxeimia from pneumonia COVID 19. Also component of underlying metabolic encephalopathy (elevated LFT"s and uncontrolled sugar)---mentation is improving. ?Aphasia possibly due to above or possibly his rule out stroke Acute hypoxic respiratory failure related to acute Covid 19 pneumonia with onset of symptoms 3 weeks ago (tested positived in emergency department on 06/07/2020) Acute hypernatremia likely due to dehydration--resolved Elevated LFT--trending up (on initial presentaiton AST 84 and currently 101. While ALT initially was 31 and currently is 52). Hypertension Hyperlipidemia Diabetes mellitus type 2 with uncontrolled sugar History of breast cancer with history of right mastectomy X tobacco use Anxiety Plan: CSF study: CSF appears clear, colorless, red blood cells 7, nuclear cells as to which is normal, glucose is 79 with a slightly elevated and the CSF total protein is 66 which is slightly elevated. This CSF is not suggestive of meningo-encephalitis since normal nucleated cells. An EEG on 06/15/2020 and the was an abnormal routine EEG. The background slowing is suggestive of moderate to severe encephalopathy. There are no focal slowing, perform discharges or seizure on the EEG. Vitamin B12 is 2829 which is high and considered normal. Serum folate level is more than 24 which is considered normal. TSH is 0.263 which is concerning low free T4 is 1.48 and is considered normal. Ordered a repeat CT head since cannot get MRI brain to rule out stroke. Ordered ammonia level. If it's elevated we'll defer the management to the primary team. We'll defer the rest of the management to the primary team as well as ICU team. The plan is discussed with the patient's nurse. Brian Glover MD Neuro-Hospitalist Time with Patient: Less than 30
[2020-06-16] MEDS: INSULIN DETEMIR (LEVEMIR) 100 UNIT/ML SYR SQ SCH (12:31)
[2020-06-16 12:32] LABS: Magnesium 1.7 mg/dL (1.6-2.3); Phosphorus 2.7 mg/dL (2.5-4.5)
[2020-06-16 12:39] LABS: Glucose,Whole Blood 249 mg/dL (75-99)
--- NOTE | 2020-06-16 13:21 | CT ---
EXAMINATION TYPE: CT brain wo con DATE OF EXAM: 06/16/2020 HISTORY: Hypoxia, Covid 19, aphasia. Altered mental status. CT DLP: 1127.4 mGycm. Automated Exposure Control for Dose Reduction was Utilized. TECHNIQUE: CT scan of the head is performed without contrast. COMPARISON: CT brain 4 days ago. FINDINGS: There is no acute intracranial hemorrhage or midline shift identified. There is mild diff use ventricular and sulcal prominence consistent with diffuse age-related cerebral atrophy redemonstr ated. There is mild low-attenuation in the periventricular white matter consistent with chronic smal l vessel ischemic change. The globes are intact and the visualized sinuses are clear. Persistent a nterior metopic suture. New completely opacified bilateral mastoid air cells on current study. Suspec t some new abnormal density surrounding middle ear ossicles. IMPRESSION: New bilateral mastoiditis and suggestion of middle ear infection spread. Correlate clinic ally.
[2020-06-16] MEDS ORDERED: LIDOCAINE 1% INJ 10MG/ML (20 ML MDV) SQ ONE (14:42)
--- NOTE | 2020-06-16 15:05 | XR ---
EXAMINATION TYPE: XR chest 1V confirm line [facility] DATE OF EXAM: 06/16/2020 COMPARISON: Same date at earlier time HISTORY: Status post PICC line placement TECHNIQUE: Single frontal view of the chest is obtained. FINDINGS: There is been interval placement of PICC line in the left upper extremity, distal tip is a t the level of the cavoatrial junction. No evident pneumothorax. IMPRESSION: No evident complication status post PICC line placement.
--- NOTE | 2020-06-16 15:39 | IR ---
EXAMINATION TYPE: IR cvc insert >=5 years DATE OF EXAM: 06/16/2020 COMPARISON: NONE HISTORY: Needs long-term intravenous access for total parenteral nutrition, Covid infection FINDINGS: Maximal barrier technique was utilized. Hand hygiene obtained with soap and water and alco hol-based hand rub. The skin overlying the left brachial vein was localized with ultrasound and noted to be compressible and patent by ultrasound. An ultrasound image was obtained and submitted on edgar ent's chart. Sterile technique utilized with the ultrasound machine. The skin overlying was prepped a nd draped and Lidocaine used for local anesthesia. A skin gordo was made with a scalpel. Access was gained to the vein under direct ultrasound guidance with a 21-gauge needle and a 0.018 inch wire was advanced. Access site was dilated with a peel-away sheath and the catheter tailored to length. Cath eter advanced centrally and a post procedure chest x-ray verified placement with the tip at the cavoa trial junction. Catheter was fixed to the skin and a sterile dressing placed. Hemostasis achieved a nd the catheter was aspirated and flushed with sterile saline. The patient remained in stable condit ion. IMPRESSION: STATUS POST ULTRASOUND GUIDED PICC LINE PLACEMENT, READY FOR USE. THIS PROCEDURE WAS PER FORMED BY THE UNDERSIGNED.
[2020-06-16] MEDS ORDERED: MVI, ADULT NO.4 WITH VIT K 10 ML, TRACE (CONC-1ML/DOSE) 1 ML in AMINO ACID 5%-D20W+LYTE... IV SCH ×3 (16:00)
[2020-06-16 17:17] LABS: Glucose,Whole Blood 237 mg/dL (75-99)
--- NOTE | 2020-06-16 19:09 | P.PN ---
Progress Note - Text Progress Note Date: 06/16/20 Chief Complaint: Short of breath History of presenting complaint: This is a 69-year-old patient who follows with Dr. blake . Patient was last seen in the ER about 5 days ago. She then had an having respiratory symptoms including cough for about 2 or 3 weeks prior to that. On this presentation is patient is altered sense. She was last seen normal at home on Sunday. EMS was called out and they found the patient to be hypoxic with 46%. Patient was ventilated with a bag valve and pulse oxygenation improved. He was placed on a nonrebreather and brought here. Here patient's problem of BiPAP. And is somewhat delirious. Not able to give any history. Patient chronic stable medical conditions include diabetes, hypertension, hyperlipidemia, history of breast cancer with right mastectomy. No family members currently present. Admitted with acute severe bilateral COVID 19 pneumonia, acute severe hypoxic respiratory failure, acute metabolic encephalopathy, with delirium. Patient placed on oxygen. Decadron. Lovenox. Consultation to neurology, pulmonary. Lumbar puncture/CSF unremarkable. Today-On BiPAP. 15/09/100%. Awake following commands. Short of breath Review of systems: Cannot be obtained as patient unable to talk/delirious Active Medications Acetaminophen (Acetaminophen Suppository 650 Mg Supp) 650 mg RECTAL Q4HR PRN PRN Reason: Fever And/ Or Mild Pain Last Admin: 06/13/20 21:46 Dose: 650 mg Documented by: Amlodipine Besylate (Amlodipine 5 Mg Tab) 5 mg PO BID [facility] Last Admin: 06/16/20 09:09 Dose: Not Given Documented by: Ascorbic Acid (Ascorbic Acid 500 Mg Tab) 1,000 mg PO DAILY [facility] Last Admin: 06/16/20 09:09 Dose: Not Given Documented by: Atorvastatin Calcium (Atorvastatin 10 Mg Tab) 10 mg PO HS [facility] Last Admin: 06/15/20 21:37 Dose: Not Given Documented by: Cholecalciferol (Cholecalciferol 25 Mcg (1000 Iu) Tablet) 25 mcg PO DAILY [facility] Last Admin: 06/16/20 09:09 Dose: Not Given Documented by: Clonidine HCl (Clonidine 0.1 Mg/24hr Patch) 1 patch TRANSDERM Q7D [facility] Last Admin: 06/12/20 20:19 Dose: 1 patch Documented by: Dexamethasone Sodium Phosphate (Dexamethasone Sod Phosphate 10 Mg/Ml 1 Ml Vial) 6 mg IV DAILY [facility] Last Admin: 06/16/20 09:14 Dose: 6 mg Documented by: Enoxaparin Sodium (Enoxaparin 60 Mg/0.6 Ml Syringe) 45 mg SQ Q12H [facility] Last Admin: 06/16/20 11:15 Dose: 45 mg Documented by: Famotidine (Famotidine 20 Mg/2 Ml Vial) 20 mg IV Q12HR [facility] Last Admin: 06/16/20 09:14 Dose: 20 mg Documented by: Gabapentin (Gabapentin 300 Mg Cap) 600 mg PO BID [facility] Last Admin: 06/16/20 09:10 Dose: Not Given Documented by: Lisinopril/HCTZ (Lisinopril-Hctz 20-25 Mg 1 Each Tab) 1 each PO DAILY [facility] Last Admin: 06/16/20 09:10 Dose: Not Given Documented by: Dextrose/Sodium Chloride (Dextrose 5%-1/2ns Iv Soln) 1,000 mls @ 75 mls/hr IV .[id number] [facility] Last Admin: 06/16/20 08:59 Dose: 150 mls/hr Documented by: Parenteral Vitamin Supplement 10 ml/ Zinc/Copper/Manganese/Selenium 1 ml/ Amino Ac/Electrol/Dextrose/Calcium 1,011 mls @ 30 mls/hr IV .Q24H [facility] Stop: 06/17/20 15:59 Last Admin: 06/16/20 18:25 Dose: 30 mls/hr Documented by: Parenteral Vitamin Supplement 10 ml/ Zinc/Copper/Manganese/Selenium 1 ml/ Amino Ac/Electrol/Dextrose/Calcium 1,011 mls @ 60 mls/hr IV .BY DURATION [facility] Amino Ac/Electrol/Dextrose/Calcium (Clinimix E 5%-20% Solution) 1,000 mls @ 60 mls/hr IV .BY DURATION [facility] Insulin Aspart (Insulin Aspart (Novolog) 100 Unit/Ml Vial) 0 unit SQ ACHS [facility]; Protocol Last Admin: 06/16/20 08:00 Dose: 4 unit Documented by: Insulin Detemir (Insulin Detemir (Levemir) 100 Unit/Ml Syr) 10 unit SQ DAILY@0700 [facility] Last Admin: 06/16/20 12:31 Dose: 10 unit Documented by: Morphine Sulfate (Morphine Sulfate 2 Mg/Ml Syringe) 2 mg IVP Q2H PRN PRN Reason: Moderate Pain Last Admin: 06/16/20 09:37 Dose: 2 mg Documented by: Naloxone HCl (Naloxone 0.4 Mg/Ml 1 Ml Vial) 0.2 mg IV Q2M PRN PRN Reason: Opioid Reversal Sertraline HCl (Sertraline 50 Mg Tab) 50 mg PO DAILY [facility] Last Admin: 06/16/20 09:10 Dose: Not Given Documented by: Sodium Chloride (Sodium Chloride 0.9% Flush 10 Ml Syringe) 10 ml IV Q4HR PRN PRN Reason: PICC Line Sodium Chloride (Sodium Chloride 0.9% Flush 10 Ml Syringe) 10 ml IV WEEKLY [facility] Sodium Chloride (Sodium Chloride 0.9% Flush 10 Ml Syringe) 20 ml IV Q4HR PRN PRN Reason: PICC Line Past medical history to include: Breast cancer with mastectomy, diabetes, hypertension, hyperlipidemia, anxiety Social history: Former smoker. Lives alone. Family history: Patient cannot tell Physical examination: VITAL SIGNS: 81, 23, 130/104, 96% on BiPAP at 100% GENERAL: BiPAP, laying in bed, awake LUNGS:[ Respiratory rate increased, using accessory muscles. PSYCH: Unable to assess. Rest of the exam per pulmonary and nursing INVESTIGATIONS, reviewed in the clinical context: June 16: WBC 8.4 hemoglobin 11.5 platelets 334 d-dimer greater than 34 potassium 3.5 creatinine 0.74 LDH 3339 CRP 41.5 sodium 145 June 15: WBC 9.1 hemoglobin 11.6 sodium 151 potassium 3.4 creatinine 0.86 June 14: WBC 6.6 hemoglobin 12.5 platelets 370 sodium 154 potassium 4.3 creatinine 0.94 June 13: D-dimer 2.13 ABG pH 7.39 pCO2 45 pO2 68 CRP 356 troponin I 0.190 WBC 7.3 hemoglobin 11.8 platelets 357 ABG: PH 7.45 pCO2 32, pO2 79 Potassium 3.9 creatinine 1.0 blood glucose 321 Troponin I 0.104 CRP 334 EKG tracing personally reviewed by me-normal sinus rhythm, nonspecific ST segment changes Chest x-ray film personally reviewed by me-bilateral infiltrate severe CT angio chest: Bilateral diffuse patchy groundglass opacities and consolidation. CTA head and neck: Negative Computed tomography scan of the brain: Negative Assessment and plan: -Acute severe bilateral COVID 19 pneumonia, diagnosed 5 days before admission, with symptoms present 2-3 weeks prior to that.-Not improving on IV dexamethasone, subcu Lovenox, vitamin C vitamin D Pepcid zinc. ACTEMRA -Acute severe hypoxic respiratory failure, secondary to COVID 19 pneumonia-not improving Remains on BiPAP-100%. -Acute delirium and acute metabolic encephalopathy from COVID 19 pneumonia Follow closely. -Diabetes mellitus type 2 on oral hypoglycemic, uncontrolled with hyperglycemia secondary to steroids Hold off oral hypoglycemic. On insulin drip-changed to Levemir 20 units subcu daily at bedtime -Essential hypertension Not able to tolerate oral medications. -Increase Catapres patch 0.2 -Diabetic peripheral neuropathy Resume gabapentin when able to tolerate by mouth -Hyperlipidemia Resume Mevacor unable to tolerate by mouth -Patient underwent lumbar puncture. CSF benign. -Significant hypernatremia with hyperchloremia.-Corrected Cutback D5.45 -Started on TPN Prognosis guarded. DP is started today.
[2020-06-16 19:27] LABS: Glucose,Whole Blood 272 mg/dL (75-99)
[2020-06-16] MEDS ORDERED: cloNIDine 0.2 MG/24HR PATCH TRANSDERM SCH (20:00)
[2020-06-16] MEDS: ATORVASTATIN 10 MG TAB PO SCH (22:12)
[2020-06-17 01:43] LABS: Glucose,Whole Blood 320 mg/dL (75-99)
[2020-06-17] MEDS: MORPHINE SULFATE 2 MG/ML SYRINGE IVP PRN ×2 (03:40→09:41)
[2020-06-17] MEDS: DEXTROSE 5%-0.45% NACL 1,000 ML IV SCH (06:19)
[2020-06-17 06:45] LABS: Glucose,Whole Blood 353 mg/dL (75-99)
[2020-06-17] MEDS: INSULIN DETEMIR (LEVEMIR) 100 UNIT/ML SYR SQ SCH (06:49)
[2020-06-17] MEDS: INSULIN ASPART (NovoLOG) 100 UNIT/ML VIAL SQ SCH (06:50)
[2020-06-17 07:23] LABS: African American GFR (CKD) >90 (>60 ml/min/1.73 sqM); Anion Gap 8 mmol/L; Blood Urea Nitrogen 22 mg/dL (7-17); Calcium 8.7 mg/dL (8.4-10.2); Carbon Dioxide 26 mmol/L (22-30); Chloride 106 mmol/L (98-107); Glucose 334 mg/dL (74-99); Magnesium 1.5 mg/dL (1.6-2.3); Non-African American GFR(CKD) >90 (>60 ml/min/1.73 sqM); Phosphorus 2.7 mg/dL (2.5-4.5); Potassium 3.4 mmol/L (3.5-5.1); Sodium 140 mmol/L (137-145)
[2020-06-17] MEDS ORDERED: MORPHINE SULFATE 4 MG/ML SYRINGE IVP STA (09:09)
[2020-06-17] MEDS ORDERED: MORPHINE SULFATE 2 MG/ML SYRINGE IVP STA (09:37)
[2020-06-17] MEDS: FUROSEMIDE 10 MG/ML 4 ML VIAL IV SCH (09:42)
--- NOTE | 2020-06-17 09:45 | P.PN ---
Subjective Progress Note Date: 06/17/20 69-year-old white female patient who presented to the emergency department on 06/12/2020 at 1400 in the afternoon with complaints of shortness of breath, and her first onset of symptoms was approximately 2-3 weeks ago. She tested positive for COVID 19 on 06/07/2020. Patient was seen in the emergency department at that time, and was having symptoms of fatigue, shortness of breath and cough. She does have multiple comorbidities including hypertension, diabetes mellitus, dyslipidemia, history of breast cancer, patient is a former smoker. Was outside the window for monoclonal antibody, she was sent home on Decadron, and vitamins. Chest x-ray at that time showed interstitial infiltrates. Patient returned with worsening symptoms, chest x-ray on the 2020 showed interval bilateral diffuse infiltrates. In addition patient was confused, on arrival of the EMS to the scene patient was severely hypoxemic with a pulse ox of only 46%. She was bagged valve ventilated with improvement in her oxygen, she was placed on BiPAP support. Brain CT showed no acute intracranial abnormality. Angiography CT showed no acute abnormality of the head/neck, and a moderate stenosis of the right proximal ICA. CBC was positive for lymphopenia with lymphocyte count 0.6, d-dimer was 1.36, sodium is 143, potassium is 3.9, chloride is 108, CO2 22, BUN is 50, creatinine is 1, glucose level was 321, plasma lactic acid is 1.3, AST was 84, ALT was 31, alk phos was 50, troponin was 0.104, CRP was 334. Patient was started on IV Decadron in the emergency department, she remains on BiPAP support, currently at pressures of 12 and 6 and FiO2 100%, she appears to have increased work of breathing, she is not able to answer questions related to dyspnea, repeat blood gas was done showing pO2 of 68, pCO2 45, pH of 7.39 and subsequently her BiPAP settings were adjusted to 14/7 and FiO2 100%, patient is awaiting a bed in the intensive care unit, she is awake and alert, she did answer some simple questions yes or no for me while on BiPAP support, we'll start the patient on IL-6 MAB, Tocilizumab. We'll continue to closely follow her clinical course, continues to deteriorate patient required intubation and placement on mechanical ventilatory supp On today's evaluation of 06/14/2020 the patient is being seen for a follow-up regarding acute hypoxic respiratory failure and COVID 19 pneumonia. The patient was status post positive on 06/07/2020 and the patient was symptomatic prior to that. The patient presented with hypoxic respiratory failure and the patient was placed on a BiPAP which is currently at the pressure of 14/7 cm of water and FiO2 of 900%. Chest x-ray showing bilateral patchy by troponin infiltrates consistent with pneumonia. The patient was started on steroids and Tocilizumab was ordered. The patient is having increased shortness of breath even while on the BiPAP. The patient is quite dyspneic even while on the BiPAP and is unable to complete full sentences. Blood gases from yesterday was noted. CT angiogram of the head and neck showed moderate stenosis of the right proximal ICA. CAT scan of the brain was negative., CRP of 356, troponin was 0.19 and the patient's d-dimer was 2.13. The patient is currently on Decadron 6 mg IV every 24 hours. The patient is on Lovenox 40 mg subcu every 24 hours. The patient on Levemir insulin 20 units daily at bedtime that was started yesterday the patient will be taken off the insulin drip. Currently the patient is also on various hypertensive medications including Zestoretic and Kl clonidine patch and Norvasc. neurologically, the patient is still quite somnolent. She is moving all 4 extremities. No neck stiffness. This encephalopathy is probably related to Covid 19 infection. Neuro is also on the case. His blood work, the sodium level is at 154 with a BUN of 61 and creatinine of 0.9. The patient on IV fluid and currently receiving 0.9 at the rate of 100 mL an hour. On 06/15/2020, the patient is being seen in follow-up in the intensive care unit. This is a case of 69-year-old female patient with Covid associated pneumonia. The patient remains in the emergency department awaiting her bed in the ICU. Currently she is on a BiPAP at a pressure of 14/7 cm of water with an FiO2 of 100%. The patient is quite synchronous and tolerated the BiPAP treatment. Her current tidal volume generated is around 840 mL with a respiratory rate of 29 and a minute ventilation of 23. Chest x-ray from today has not been done and this is supposed to be repeated. The chest x-ray from y was showing diffuse bilaterally pulmonary infiltrates more so in the left perihilar area. No new blood gases. D-dimer is today at 34 and the CRP level is at 67. LDH is still pending for now. Neurologically, the patient is still lethargic and somnolent and encephalopathic. She is on Precedex running at 0.5 mcg/kg per minute. Lumbar puncture was done yesterday and the patient was found to have a CSF RBC of 7, nucleated cells were only a 2, glucose was 79 and the protein was slightly elevated at 66. This is not consistent with bacterial meningitis. It may be consistent with viral encephalopathy. Gram stain of the CSF was negative. Cultures are also negative. I would say clin ically she is essentially unchanged. She is more comfortable while being on Precedex. She is hemodynamically stable and she is afebrile. She is still receiving IV fluids in the form of D5 half-normal saline at the rate of 1 25 mL an hour. She is currently off the insulin drip. Her blood sugar is at 128 and the patient is on Levemir insulin 20 units daily at bedtime along with a sliding scale coverage. The patient's renal function currently is stable with a BUN of 63 and a creatinine of 0.8. Sodium level was improving and his sodium level was on the decline it was already down to 151. 06/16/2020, the patient remains on a BiPAP in the emergency department a pressure of 14/7 and FiO2 is currently at 80% and her current pulse ox is around 96%. Her generated tidal volume is around 816 with a respiratory rate of 30 and a minute volume of 25 L per minute. I took her off the Precedex yesterday the patient was quite lethargic. This morning, she is more arousable. She is extremely weak. She is following some simple commands. She is wiggling her toes and moving her arms upon demand. She cannot hold a conversation as the patient is very much BiPAP dependent at this point in time. She easily desaturates once she is off the BiPAP. She is hemodynamically stable for now. The chest x-ray showing bilateral pulmonary infiltrates, slightly improved compared to yesterday. In terms of her blood work, the patient's blood sugars at 250. She is currently on D5 half-normal saline at the rate of 150 mL an hour. Her sodium level is improved and is down to 145 and a BUN is 36 with a creatinine of 0.7. Her CRP is down to 41. Her LDH level is up to 3339. Rest of the blood work and electrodes are all within normal limits and as mentioned the sodium level is improved and is down to 145. Her lumbar puncture was done and the findings are essentially related to Covid 19 encephalopathy. Case was discussed with neurology. As for the blood sugars, the patient's blood sugars are running in the mid 200s and the patient is on a sliding scale coverage. No major edema in lower extremities. Cardiac rhythm is sinus for now. 06/17/2020, the patient is being seen in follow-up. Unfortunately, she has remained in the emergency and she hasn't been able to find her way up to the ICU. I have her today on a BiPAP at a pressure of 16/8 cm of water with an FiO2 of 100%. The patient was doing well throughout the night and earlier this morning she became significantly more short of breath, hypoxic and tachycardic. Currently she is struggling with her breathing. She is using excessive muscle breathing even while being on a BiPAP. She is able to generate adequate tidal volumes of around 800 mL and her respiratory rate is in the mid 40s. She is tachycardic with a heart rate of 150, sinus. She is unable to speak. She is anxious. She was given a total of 4 mg of morphine which helped her with the breathlessness and shortness of breath. She is awake and arousable and she is moving all 4 extremities. As mentioned earlier, she is a case of COVID-19 related pneumonia. The patient was treated with a combination of treatment and the patient was given Decadron 6 mg IV every 24 hours. The patient also received Tocilizumab 50 mg IV on 06/13/2020. She was having some degree of encephalopathy that was thought to be a viral encephalopathy in the lumbar puncture was done and it showed some mild elevation of the protein. Otherwise negative. Repeat chest x-ray from today has not been completed. This is in progress. Cardiac rhythm is sinus. The patient is likely headed to intubation/mechanical ventilation. Objective - Vital Signs Vital signs: Vital Signs Temp 98.6 F 04/15/21 08:08 Pulse 161 H 06/17/20 09:15 Resp 42 H 06/17/20 09:15 BP 190/117 06/17/20 09:06 Pulse Ox 83 L 06/17/20 09:15 Intake & Output 06/16/20 06/17/20 06/17/20 18:59 06:59 18:59 Output Total 1775 175 Balance -1775 -175 Weight 89.267 kg Output: Urine 1775 175 - Exam GENERAL EXAM:69-year-old white female on BiPAP support, currently with 16 and 8 and FiO2 100%, and the patient is extremely tachypneic, short of breath, using accessory muscles of breathing at this point in time. HEAD: Normocephalic/atraumatic. EYES: Normal reaction of pupils, equal size. Conjunctiva pink, sclera white. NOSE: Clear with pink turbinates. THROAT: No erythema or exudates. NECK: No masses, no JVD, no thyroid enlargement, no adenopathy. CHEST: No chest wall deformity. Symmetrical expansion. Asynchronous, tachypneic, using accessory muscle breathing LUNGS: Equal air entry with diffuse crackles CVS: Regular rate and rhythm, normal S1 and S2, no gallops, no murmurs, no rubs ABDOMEN: Soft, nontender. No hepatosplenomegaly, normal bowel sounds, no guarding or rigidity. EXTREMITIES: No clubbing, no edema, no cyanosis, 2+ pulses and upper and lower extremities. MUSCULOSKELETAL: Muscle strength and tone normal. SPINE: No scoliosis or deformity SKIN: No rashes CENTRAL NERVOUS SYSTEM: Patient remains encephalopathic. The patient is not answering questions. He is moving all 4 extremities without any limitation. Morphine, and without significant. She seems to be less agitated at this point. The improvement occurred after giving morphine. - Labs CBC & Chem 7: 06/16/20 04:19 06/17/20 06:17 Labs: Abnormal Lab Results - Last 24 Hours (Table) 06/16/20 06/16/20 06/16/20 Range/Units 10:04 10:26 10:28 Potassium (3.5-5.1) mmol/L BUN (7-17) mg/dL Glucose (74-99) mg/dL POC Glucose (mg/dL) 266 H (75-99) mg/dL Magnesium (1.6-2.3) mg/dL Ammonia 38 H (<30) umol/L Triglycerides 594 H (<150) mg/dL 06/16/20 06/16/20 06/16/20 Range/Units 12:24 17:15 19:23 Potassium (3.5-5.1) mmol/L BUN (7-17) mg/dL Glucose (74-99) mg/dL POC Glucose (mg/dL) 249 H 237 H 272 H (75-99) mg/dL Magnesium (1.6-2.3) mg/dL Ammonia (<30) umol/L Triglycerides (<150) mg/dL 06/17/20 06/17/20 06/17/20 Range/Units 01:42 06:17 06:43 Potassium 3.4 L (3.5-5.1) mmol/L BUN 22 H (7-17) mg/dL Glucose 334 H (74-99) mg/dL POC Glucose (mg/dL) 320 H 353 H (75-99) mg/dL Magnesium 1.5 L (1.6-2.3) mg/dL Ammonia (<30) umol/L Triglycerides (<150) mg/dL Assessment and Plan Plan: #1. Acute hypoxic respiratory failure related to acute COVID 19 pneumonia, with onset of symptoms 3 weeks ago, tested positive in the emergency department on 06/07/2020, was outside the window for BAM, was sent home on Decadron and vitamins. Returned for reevaluation worsening symptoms and worsening hypoxia. Patient was treated with a combination of Decadron and Tocilizumab. The patient is currently on BiPAP. Current pressures of 16/8 cm of water with an FiO2 of 100%. Chest x-ray diffuse infiltrates that with pneumonia. Inflammatory markers are quite elevated. The patient remains encephalopathic and the patient probably is going through Covid encephalopathy This morning, the patient became more hypoxic, tachypneic and agitated and she was struggling with her breathing using accessory muscles of breathing. We are still avoiding intubation as much as possible. We will going to try to stabilize the situation with the use of noninvasive positive pressure ventilation. The patient was given morphine and she is settling down. She is going to be moved to the intensive care unit. Chest x-ray has been ordered. Inflammatory markers from today are still in progress. Condition is critical and the patient will be moved to the ICU, possible intubation mechanical ventilation. Mental status continues to be altered. Patient remains nothing by mouth. TPN was started for nutritional support. Blood sugars are running high. #2. Increased inflammatory markers and d-dimer related to the above #3. Troponin leak, we'll follow serial troponins, likely secondary to Covid 19 related infection #4. Altered mental status, brain CT and angiogram of the brain negative, possibly related to metabolic encephalopathy/Covid 19 encephalopathy. Lumbar puncture was done and the patient was found to have some mild elevation of the protein. No evidence of any bacterial meningitis. Rule out metabolic encephalopathy. Covid 19 encephalopathy is also considered in this patient. Patient is currently off Precedex, and the mental status continues to be unchanged and altered. #5. Aphasia, rule out possibility of a stroke, neurology consultation has been requested, patient was not a candidate for TPA #6. Hypertension #7. Hyperlipidemia #8. Diabetes multiple's type II, currently on D5 half-normal at the rate of 75cc/hr and she was started on Levemir insulin yesterday at a dose of 10 units daily #12 hyperchloremic hypernatremia , sodium levels are pending #13 generalized global weakness in all 4 extremities and the neurologic exam is nonfocal. Could be a complication of malignancy related infection. Plan: Continue BiPAP for respiratory support, , BiPAP of 16/8 with an FiO2 will be weaned down to 70% Repeat chest x-ray in the morning Morphine 2 mg IV push every 2-4 hours for agitation and restlessness monitor respiratory status, possible intubation mechanical ventilation Transfer the patient to the intensive care unit Lumbar puncture results were noted Encephalopathy is obviously concern. Neurology evaluation was noted Treatment with Il-6 MAB, Tocilizumab, continue Decadron, Lovenox 40 mg daily, continue Pepcid, Will stop the IV fluids The patient is receiving TPN for nutritional support Continue Levemir insulin and the dose will be adjusted based on her blood sugar control. Repeat labs are pending will follow her clinical course closely obtain follow-up troponins, LDH, ferritin Patient is critically ill and will continue to follow make further recommendat ions based on her progress Awaiting transfer to the ICU and is unable to find a bed in the ICU, may likely need intubation mechanical ventilation. Critically care evaluation for more than 30 minutes Time with Patient: Greater than 30
[2020-06-17 10:12] LABS: Glucose,Whole Blood 349 mg/dL (75-99)
[2020-06-17] MEDS: ASCORBIC ACID 500 MG TAB PO SCH (10:13)
[2020-06-17] MEDS: amLODIPine 5 MG TAB PO SCH ×2 (10:13→21:06)
[2020-06-17] MEDS: CHOLECALCIFEROL 25 MCG (1000 IU) TABLET PO SCH (10:14)
[2020-06-17] MEDS: GABAPENTIN 300 MG CAP PO SCH ×2 (10:14→21:06)
[2020-06-17] MEDS: SERTRALINE 50 MG TAB PO SCH (10:14)
[2020-06-17] MEDS: LISINOPRIL-HCTZ 20-25 MG 1 EACH TAB PO SCH (10:14)
[2020-06-17] MEDS: FAMOTIDINE 20 MG/2 ML VIAL IV SCH ×2 (10:14→21:05)
--- NOTE | 2020-06-17 10:17 | XR ---
EXAMINATION TYPE: XR chest 1V portable DATE OF EXAM: 06/17/2020 COMPARISON: Chest x-ray dated 06/16/2020 HISTORY: Covid, shortness of breath TECHNIQUE: Single frontal view of the chest is obtained. FINDINGS: Bilateral airspace disease is again noted. Left-sided PICC line is stable. No evident pneu mothorax or pleural effusion. Cardiomediastinal silhouette shows a stable appearance. Aorta is dense. IMPRESSION: Similar to prior exams, correlate for pneumonia.
[2020-06-17] MEDS: DEXAMETHASONE SOD PHOSPHATE 10 MG/ML 1 ML VIAL IV SCH (10:34)
[2020-06-17] MEDS: MAGNESIUM SULFATE-D5W PMX 1 GM in DEXTROSE/WATER 1 100ML.BAG IVPB SCH ×3 (10:39→13:27)
[2020-06-17] MEDS: POTASSIUM CHLORIDE 20 MEQ in WATER FOR INJECTION 1 100ML.BAG IVPB SCH ×2 (10:41→13:27)
[2020-06-17] MEDS ORDERED: INSULIN REGULAR BOLUS (FROM DRIP BAG) IV PRN (10:47)
[2020-06-17 12:00] LABS: Glucose,Whole Blood 345 mg/dL (75-99)
[2020-06-17] MEDS: ENOXAPARIN 60 MG/0.6 ML SYRINGE SQ SCH ×2 (12:05→23:13)
[2020-06-17] MEDS: INSULIN REGULAR 100 UNIT in SODIUM CHLORIDE 0.9% 100 ML IV SCH ×2 (12:07→23:13)
[2020-06-17 13:22] LABS: Glucose,Whole Blood 313 mg/dL (75-99)
[2020-06-17 14:10] LABS: Glucose,Whole Blood 266 mg/dL (75-99)
--- NOTE | 2020-06-17 14:20 | P.PN ---
Subjective Progress Note Date: 06/17/20 Patient was seen at bedside and she continues to be on BiPAP. According to the patient nurse she is not following commands. And continues to be in respiratory distress. Objective - Vital Signs Vital signs: Vital Signs Temp 99.6 F 06/17/20 12:00 Pulse 141 H 06/17/20 13:00 Resp 22 06/17/20 13:00 BP 127/78 06/17/20 13:00 Pulse Ox 94 L 06/17/20 13:00 Intake & Output 06/16/20 06/17/20 06/17/20 18:59 06:59 18:59 Intake Total 99.913 Output Total 1775 1100 Balance -1775 -1000.087 Weight 89.267 kg Intake: IV 75 0.9 75 Intake, IV Titration 24.913 Amount Insulin Regular 100 unit 24.913 In Sodium Chloride 0.9% 100 ml @ Per Protocol IV .Q0M [facility] Rx#:[id number] Output: Urine 1775 1100 Other: Voiding Method Indwelling Catheter - Exam GENERAL: The patient is lying in bed and does seem in moderate acute distress. LUNG: Clear to auscultation bilaterally no wheezing noted throughout. Seems tachypneic. On BiPAP machine. NEUROLOGICAL: Limited because of respiratory condition. She had BIPAP machine since has respiratory distress. Higher mental function: The patient is drowsy but awakeable but not verbalizing or following commands. Cranial nerves: Pupils are round, equal (3mm) bilaterally and reactive to light. Primary gaze is midline. Rest of cranial nerves are limited because of condition. Motor: Gait is deferred. The strength is limited because of patient's cooperation and was sitting to her side.. No spontaneous movement. Cerebellum: Could not assess. Sensation: Could not assess light touch. Reflexes (right/left): 1+ throughout. Plantars are downgoing bilaterally. - Labs CBC & Chem 7: 06/16/20 04:19 06/17/20 06:17 Labs: Abnormal Lab Results - Last 24 Hours (Table) 06/16/20 06/16/20 06/16/20 Range/Units 10:28 17:15 19:23 D-Dimer (<0.60) mg/L FEU Potassium (3.5-5.1) mmol/L BUN (7-17) mg/dL Glucose (74-99) mg/dL POC Glucose (mg/dL) 237 H 272 H (75-99) mg/dL Magnesium (1.6-2.3) mg/dL Lactate Dehydrogenase (313-618) U/L C-Reactive Protein (<10.0) mg/L Triglycerides 594 H (<150) mg/dL 06/17/20 06/17/20 06/17/20 Range/Units 01:42 06:17 06:43 D-Dimer (<0.60) mg/L FEU Potassium 3.4 L (3.5-5.1) mmol/L BUN 22 H (7-17) mg/dL Glucose 334 H (74-99) mg/dL POC Glucose (mg/dL) 320 H 353 H (75-99) mg/dL Magnesium 1.5 L (1.6-2.3) mg/dL Lactate Dehydrogenase (313-618) U/L C-Reactive Protein (<10.0) mg/L Triglycerides (<150) mg/dL 06/17/20 06/17/20 06/17/20 Range/Units 10:10 11:42 11:42 D-Dimer >34.10 H (<0.60) mg/L FEU Potassium (3.5-5.1) mmol/L BUN (7-17) mg/dL Glucose (74-99) mg/dL POC Glucose (mg/dL) 349 H (75-99) mg/dL Magnesium (1.6-2.3) mg/dL Lactate Dehydrogenase 3399 H (313-618) U/L C-Reactive Protein 22.0 H (<10.0) mg/L Triglycerides (<150) mg/dL 06/17/20 06/17/20 Range/Units 11:58 13:21 D-Dimer (<0.60) mg/L FEU Potassium (3.5-5.1) mmol/L BUN (7-17) mg/dL Glucose (74-99) mg/dL POC Glucose (mg/dL) 345 H 313 H (75-99) mg/dL Magnesium (1.6-2.3) mg/dL Lactate Dehydrogenase (313-618) U/L C-Reactive Protein (<10.0) mg/L Triglycerides (<150) mg/dL Assessment and Plan Assessment: Acute encephalopathy likely due to hypoxeimia from pneumonia COVID 19. Also component of underlying metabolic encephalopathy (elevated LFT"s and uncontrolled sugar)---mentation is improving. Acute hypoxic respiratory failure related to acute Covid 19 pneumonia with onset of symptoms 3 weeks ago (tested positived in emergency department on 06/07/2020) ?reported aphasia but exam is limited due to above Acute hypernatremia likely due to dehydration--resolved Elevated LFT--trending up (on initial presentaiton AST 84 and currently 101. While ALT initially was 31 and currently is 52). Hypertension Hyperlipidemia Diabetes mellitus type 2 with uncontrolled sugar History of breast cancer with history of right mastectomy X tobacco use Anxiety Plan: CSF study: CSF appears clear, colorless, red blood cells 7, nuclear cells as to which is normal, glucose is 79 with a slightly elevated and the CSF total protein is 66 which is slightly elevated. This CSF is not suggestive of meningo-encephalitis since normal nucleated cells. An EEG on 06/15/2020 and the was an abnormal routine EEG. The background slowing is suggestive of moderate to severe encephalopathy. There are no focal slowing, perform discharges or seizure on the EEG. Vitamin B12 is 2829 which is high and considered normal. Serum folate level is more than 24 which is considered normal. TSH is 0.263 which is concerning low free T4 is 1.48 and is considered normal. Repeat CT head on 06/16/2020: Is reported as new bilateral mastoiditis and suggestion of midline ear infection spread. Correlate clinically. Could not get MRI of the brain because of respiratory condition. Once the patient condition improves then the possibly will get MRI of the brain down the line. If there was a stroke it should have been seen since since two CT head were performed and were 4 days apart. Repeat ammonia level is 38 with mildly high we'll defer the management to the primary as well as ICU team. We'll defer the rest of the management to the primary team as well as ICU team. The plan is discussed with the patient's nurse. The patient's prognosis seems very guarded. Will follow-up with the patient sporadically. Brian Glover MD Neuro-Hospitalist Time with Patient: Less than 30
[2020-06-17 15:04] LABS: Glucose,Whole Blood 239 mg/dL (75-99)
[2020-06-17 15:59] LABS: Glucose,Whole Blood 178 mg/dL (75-99)
[2020-06-17 17:39] LABS: Glucose,Whole Blood 208 mg/dL (75-99)
--- NOTE | 2020-06-17 18:21 | P.PN ---
Progress Note - Text Progress Note Date: 06/17/20 Chief Complaint: Short of breath History of presenting complaint: This is a 69-year-old patient who follows with Dr. eubanks . Patient was last seen in the ER about 5 days ago. She then had an having respiratory symptoms including cough for about 2 or 3 weeks prior to that. On this presentation is patient is altered sense. She was last seen normal at home on Sunday. EMS was called out and they found the patient to be hypoxic with 46%. Patient was ventilated with a bag valve and pulse oxygenation improved. He was placed on a nonrebreather and brought here. Here patient's problem of BiPAP. And is somewhat delirious. Not able to give any history. Patient chronic stable medical conditions include diabetes, hypertension, hyperlipidemia, history of breast cancer with right mastectomy. No family members currently present. Admitted with acute severe bilateral COVID 19 pneumonia, acute severe hypoxic respiratory failure, acute metabolic encephalopathy, with delirium. Patient placed on oxygen. Decadron. Lovenox. Consultation to neurology, pulmonary. Lumbar puncture/CSF unremarkable. Today-ICU: On BiPAP. 16/8/100%. Awake following commands. Short of breath- tired Review of systems: Cannot be obtained as patient unable to talk Active Medications Acetaminophen (Acetaminophen Suppository 650 Mg Supp) 650 mg RECTAL Q4HR PRN PRN Reason: Fever And/ Or Mild Pain Last Admin: 06/13/20 21:46 Dose: 650 mg Documented by: Amlodipine Besylate (Amlodipine 5 Mg Tab) 5 mg PO BID [facility] Last Admin: 06/17/20 10:13 Dose: Not Given Documented by: Ascorbic Acid (Ascorbic Acid 500 Mg Tab) 1,000 mg PO DAILY [facility] Last Admin: 06/17/20 10:13 Dose: Not Given Documented by: Atorvastatin Calcium (Atorvastatin 10 Mg Tab) 10 mg PO HS [facility] Last Admin: 06/16/20 22:12 Dose: Not Given Documented by: Cholecalciferol (Cholecalciferol 25 Mcg (1000 Iu) Tablet) 25 mcg PO DAILY [facility] Last Admin: 06/17/20 10:14 Dose: Not Given Documented by: Clonidine HCl (Clonidine 0.2 Mg/24hr Patch) 1 patch TRANSDERM Q7D [facility] Last Admin: 06/16/20 20:04 Dose: 1 patch Documented by: Dexamethasone Sodium Phosphate (Dexamethasone Sod Phosphate 10 Mg/Ml 1 Ml Vial) 6 mg IV DAILY [facility] Last Admin: 06/17/20 10:34 Dose: Not Given Documented by: Enoxaparin Sodium (Enoxaparin 60 Mg/0.6 Ml Syringe) 45 mg SQ Q12H [facility] Last Admin: 06/17/20 12:05 Dose: 45 mg Documented by: Famotidine (Famotidine 20 Mg/2 Ml Vial) 20 mg IV Q12HR [facility] Last Admin: 06/17/20 10:14 Dose: Not Given Documented by: Furosemide (Furosemide 10 Mg/Ml 4 Ml Vial) 40 mg IV DAILY [facility] Last Admin: 06/17/20 09:42 Dose: 40 mg Documented by: Gabapentin (Gabapentin 300 Mg Cap) 600 mg PO BID [facility] Last Admin: 06/17/20 10:14 Dose: Not Given Documented by: Lisinopril/HCTZ (Lisinopril-Hctz 20-25 Mg 1 Each Tab) 1 each PO DAILY [facility] Last Admin: 06/17/20 10:14 Dose: Not Given Documented by: Parenteral Vitamin Supplement 10 ml/ Zinc/Copper/Manganese/Selenium 1 ml/ Amino Ac/Electrol/Dextrose/Calcium 1,011 mls @ 60 mls/hr IV .BY DURATION [facility] Amino Ac/Electrol/Dextrose/Calcium (Clinimix E 5%-20% Solution) 1,000 mls @ 60 mls/hr IV .BY DURATION [facility] Insulin Human Regular 100 unit (/ Sodium Chloride) 101 mls @ 0 mls/hr IV .Q0M [facility]; Protocol Last Titration: 06/17/20 18:08 Dose: 9 units/hr, 9.09 mls/hr Documented by: Morphine Sulfate (Morphine Sulfate 2 Mg/Ml Syringe) 2 mg IVP Q2H PRN PRN Reason: Moderate Pain Last Admin: 06/17/20 09:41 Dose: 2 mg Documented by: Naloxone HCl (Naloxone 0.4 Mg/Ml 1 Ml Vial) 0.2 mg IV Q2M PRN PRN Reason: Opioid Reversal Sertraline HCl (Sertraline 50 Mg Tab) 50 mg PO DAILY [facility] Last Admin: 06/17/20 10:14 Dose: Not Given Documented by: Sodium Chloride (Sodium Chloride 0.9% Flush 10 Ml Syringe) 10 ml IV Q4HR PRN PRN Reason: PICC Line Sodium Chloride (Sodium Chloride 0.9% Flush 10 Ml Syringe) 10 ml IV WEEKLY DANITA Sodium Chloride (Sodium Chloride 0.9% Flush 10 Ml Syringe) 20 ml IV Q4HR PRN PRN Reason: PICC Line Past medical history to include: Breast cancer with mastectomy, diabetes, hypertension, hyperlipidemia, anxiety Social history: Former smoker. Lives alone. Family history: Patient cannot tell Physical examination: VITAL SIGNS: 88.6, 130, 29, 130/71, 91% on BiPAP at 100% GENERAL: BiPAP, laying in bed, awake, tired LUNGS:[ Respiratory rate increased, using accessory muscles. PSYCH: Unable to assess. Rest of the exam per pulmonary and nursing INVESTIGATIONS, reviewed in the clinical context: June 17: D-dimer more than 34 LDH 3399, CRP 22 June 16: WBC 8.4 hemoglobin 11.5 platelets 334 d-dimer greater than 34 potassium 3.5 creatinine 0.74 LDH 3339 CRP 41.5 sodium 145 June 15: WBC 9.1 hemoglobin 11.6 sodium 151 potassium 3.4 creatinine 0.86 June 14: WBC 6.6 hemoglobin 12.5 platelets 370 sodium 154 potassium 4.3 creatinine 0.94 June 13: D-dimer 2.13 ABG pH 7.39 pCO2 45 pO2 68 CRP 356 troponin I 0.190 WBC 7.3 hemoglobin 11.8 platelets 357 ABG: PH 7.45 pCO2 32, pO2 79 Potassium 3.9 creatinine 1.0 blood glucose 321 Troponin I 0.104 CRP 334 EKG tracing personally reviewed by me-normal sinus rhythm, nonspecific ST segment changes Chest x-ray film personally reviewed by me-bilateral infiltrate severe CT angio chest: Bilateral diffuse patchy groundglass opacities and consolidation. CTA head and neck: Negative Computed tomography scan of the brain: Negative Assessment and plan: -Acute severe bilateral COVID 19 pneumonia, diagnosed 5 days before admission, with symptoms present 2-3 weeks prior to that.-Not improving on IV dexamethasone, subcu Lovenox, vitamin C vitamin D Pepcid zinc. ACTEMRA -Acute severe hypoxic respiratory failure, secondary to COVID 19 pneumonia-not improving Remains on BiPAP-100%. -Acute delirium and acute metabolic encephalopathy from COVID 19 pneumonia Follow closely. -Diabetes mellitus type 2 on oral hypoglycemic, uncontrolled with hyperglycemia secondary to steroids Hold off oral hypoglycemic. On insulin drip- -Essential hypertension Not able to tolerate oral medications. -Increase Catapres patch 0.2 -Diabetic peripheral neuropathy Resume gabapentin when able to tolerate by mouth -Hyperlipidemia Resume Mevacor unable to tolerate by mouth -Patient underwent lumbar puncture. CSF benign. -Significant hypernatremia with hyperchloremia.-Corrected Cutback D5.45 - TPN Prognosis guarded. On BiPAP. Insulin drip. Additional CC's: Heriberto Eubanks
[2020-06-17 18:41] LABS: Glucose,Whole Blood 201 mg/dL (75-99)
[2020-06-17 20:08] LABS: Glucose,Whole Blood 100 mg/dL (75-99)
[2020-06-17 21:03] LABS: Glucose,Whole Blood 102 mg/dL (75-99)
[2020-06-17] MEDS: ATORVASTATIN 10 MG TAB PO SCH (21:06)
[2020-06-17] MEDS: 1: MVI, ADULT NO.4 WITH VIT K 10 ML, TRACE (CONC-1ML/DOSE) 1 ML in AMINO ACID 5%-D20W+LY IV SCH ×3 (21:06)
[2020-06-17 22:01] LABS: Glucose,Whole Blood 154 mg/dL (75-99)
[2020-06-17 22:57] LABS: Glucose,Whole Blood 209 mg/dL (75-99)
[2020-06-18 00:08] LABS: Glucose,Whole Blood 196 mg/dL (75-99)
[2020-06-18] MEDS: MORPHINE SULFATE 2 MG/ML SYRINGE IVP PRN ×2 (00:27→04:31)
[2020-06-18 02:11] LABS: Glucose,Whole Blood 147 mg/dL (75-99)
[2020-06-18 03:01] LABS: Glucose,Whole Blood 157 mg/dL (75-99)
[2020-06-18 04:12] LABS: Glucose,Whole Blood 137 mg/dL (75-99)
[2020-06-18 05:36] LABS: Basophils % (A) 0 %; Eosinophils # (A) 0.2 k/uL (0-0.7); Eosinophils % (A) 1 %; HCT 39.6 % (34.0-46.0); HGB 13.3 gm/dL (11.4-16.0); Lymphocytes # (A) 0.7 k/uL (1.0-4.8); Lymphocytes % (A) 5 %; MCH 30.3 pg (25.0-35.0); MCHC 33.5 g/dL (31.0-37.0); MCV 90.2 fL (80.0-100.0); Mean Platelet Volume 8.5; Monocytes # (A) 0.3 k/uL (0-1.0); Monocytes % (A) 2 %; Neutrophils # (A) 12.8 k/uL (1.3-7.7); Neutrophils % (A) 91 %; Platelet Count 240 k/uL (150-450); RBC 4.38 m/uL (3.80-5.40); RDW 13.7 % (11.5-15.5)
[2020-06-18 05:36] LABS: Glucose,Whole Blood 187 mg/dL (75-99)
[2020-06-18 05:56] LABS: C Reactive Protein 29.9 mg/L (<10.0)
[2020-06-18 06:01] LABS: ABG HCO3 27 mmol/L (21-25); ABG Oxygen Saturation 84.3 % (94-97); ABG PCO2 36 mmHg (35-45); ABG PH 7.49 (7.35-7.45); ABG TCO2 28 mmol/L (19-24); Allen Test Performed? Yes
[2020-06-18 06:06] LABS: ABG PO2 52 mmHg (83-108)
[2020-06-18] MEDS ORDERED: DEXMEDETOMIDINE/0.9% NACL(PMX) 400 MCG in EMPTY BAG 1 BAG IV SCH (06:11)
[2020-06-18 06:21] LABS: Glucose,Whole Blood 216 mg/dL (75-99)
[2020-06-18] MEDS: GABAPENTIN 300 MG CAP PO SCH ×3 (06:49→20:49)
[2020-06-18] MEDS: amLODIPine 5 MG TAB PO SCH ×3 (06:49→20:49)
[2020-06-18] MEDS: ATORVASTATIN 10 MG TAB PO SCH ×2 (06:51→20:49)
[2020-06-18] MEDS ORDERED: INSULIN DETEMIR (LEVEMIR) 100 UNIT/ML SYR SQ SCH ×2 (07:00)
[2020-06-18 07:18] LABS: Glucose,Whole Blood 236 mg/dL (75-99)
[2020-06-18] MEDS ORDERED: INSULIN REGULAR BOLUS (FROM DRIP BAG) IV PRN (07:22)
--- NOTE | 2020-06-18 07:26 | P.PN ---
Subjective Progress Note Date: 06/18/20 69-year-old white female patient who presented to the emergency department on 06/12/2020 at 1400 in the afternoon with complaints of shortness of breath, and her first onset of symptoms was approximately 2-3 weeks ago. She tested positive for COVID 19 on 06/07/2020. Patient was seen in the emergency department at that time, and was having symptoms of fatigue, shortness of breath and cough. She does have multiple comorbidities including hypertension, diabetes mellitus, dyslipidemia, history of breast cancer, patient is a former smoker. Was outside the window for monoclonal antibody, she was sent home on Decadron, and vitamins. Chest x-ray at that time showed interstitial infiltrates. Patient returned with worsening symptoms, chest x-ray on the 2020 showed interval bilateral diffuse infiltrates. In addition patient was confused, on arrival of the EMS to the scene patient was severely hypoxemic with a pulse ox of only 46%. She was bagged valve ventilated with improvement in her oxygen, she was placed on BiPAP support. Brain CT showed no acute intracranial abnormality. Angiography CT showed no acute abnormality of the head/neck, and a moderate stenosis of the right proximal ICA. CBC was positive for lymphopenia with lymphocyte count 0.6, d-dimer was 1.36, sodium is 143, potassium is 3.9, chloride is 108, CO2 22, BUN is 50, creatinine is 1, glucose level was 321, plasma lactic acid is 1.3, AST was 84, ALT was 31, alk phos was 50, troponin was 0.104, CRP was 334. Patient was started on IV Decadron in the emergency department, she remains on BiPAP support, currently at pressures of 12 and 6 and FiO2 100%, she appears to have increased work of breathing, she is not able to answer questions related to dyspnea, repeat blood gas was done showing pO2 of 68, pCO2 45, pH of 7.39 and subsequently her BiPAP settings were adjusted to 14/7 and FiO2 100%, patient is awaiting a bed in the intensive care unit, she is awake and alert, she did answer some simple questions yes or no for me while on BiPAP support, we'll start the patient on IL-6 MAB, Tocilizumab. We'll continue to closely follow her clinical course, continues to deteriorate patient required intubation and placement on mechanical ventilatory supp On today's evaluation of 06/14/2020 the patient is being seen for a follow-up regarding acute hypoxic respiratory failure and COVID 19 pneumonia. The patient was status post positive on 06/07/2020 and the patient was symptomatic prior to that. The patient presented with hypoxic respiratory failure and the patient was placed on a BiPAP which is currently at the pressure of 14/7 cm of water and FiO2 of 900%. Chest x-ray showing bilateral patchy by troponin infiltrates consistent with pneumonia. The patient was started on steroids and Tocilizumab was ordered. The patient is having increased shortness of breath even while on the BiPAP. The patient is quite dyspneic even while on the BiPAP and is unable to complete full sentences. Blood gases from yesterday was noted. CT angiogram of the head and neck showed moderate stenosis of the right proximal ICA. CAT scan of the brain was negative., CRP of 356, troponin was 0.19 and the patient's d-dimer was 2.13. The patient is currently on Decadron 6 mg IV every 24 hours. The patient is on Lovenox 40 mg subcu every 24 hours. The patient on Levemir insulin 20 units daily at bedtime that was started yesterday the patient will be taken off the insulin drip. Currently the patient is also on various hypertensive medications including Zestoretic and Kl clonidine patch and Norvasc. neurologically, the patient is still quite somnolent. She is moving all 4 extremities. No neck stiffness. This encephalopathy is probably related to Covid 19 infection. Neuro is also on the case. His blood work, the sodium level is at 154 with a BUN of 61 and creatinine of 0.9. The patient on IV fluid and currently receiving 0.9 at the rate of 100 mL an hour. On 06/15/2020, the patient is being seen in follow-up in the intensive care unit. This is a case of 69-year-old female patient with Covid associated pneumonia. The patient remains in the emergency department awaiting her bed in the ICU. Currently she is on a BiPAP at a pressure of 14/7 cm of water with an FiO2 of 100%. The patient is quite synchronous and tolerated the BiPAP treatment. Her current tidal volume generated is around 840 mL with a respiratory rate of 29 and a minute ventilation of 23. Chest x-ray from today has not been done and this is supposed to be repeated. The chest x-ray from y was showing diffuse bilaterally pulmonary infiltrates more so in the left perihilar area. No new blood gases. D-dimer is today at 34 and the CRP level is at 67. LDH is still pending for now. Neurologically, the patient is still lethargic and somnolent and encephalopathic. She is on Precedex running at 0.5 mcg/kg per minute. Lumbar puncture was done yesterday and the patient was found to have a CSF RBC of 7, nucleated cells were only a 2, glucose was 79 and the protein was slightly elevated at 66. This is not consistent with bacterial meningitis. It may be consistent with viral encephalopathy. Gram stain of the CSF was negative. Cultures are also negative. I would say clin ically she is essentially unchanged. She is more comfortable while being on Precedex. She is hemodynamically stable and she is afebrile. She is still receiving IV fluids in the form of D5 half-normal saline at the rate of 1 25 mL an hour. She is currently off the insulin drip. Her blood sugar is at 128 and the patient is on Levemir insulin 20 units daily at bedtime along with a sliding scale coverage. The patient's renal function currently is stable with a BUN of 63 and a creatinine of 0.8. Sodium level was improving and his sodium level was on the decline it was already down to 151. 06/16/2020, the patient remains on a BiPAP in the emergency department a pressure of 14/7 and FiO2 is currently at 80% and her current pulse ox is around 96%. Her generated tidal volume is around 816 with a respiratory rate of 30 and a minute volume of 25 L per minute. I took her off the Precedex yesterday the patient was quite lethargic. This morning, she is more arousable. She is extremely weak. She is following some simple commands. She is wiggling her toes and moving her arms upon demand. She cannot hold a conversation as the patient is very much BiPAP dependent at this point in time. She easily desaturates once she is off the BiPAP. She is hemodynamically stable for now. The chest x-ray showing bilateral pulmonary infiltrates, slightly improved compared to yesterday. In terms of her blood work, the patient's blood sugars at 250. She is currently on D5 half-normal saline at the rate of 150 mL an hour. Her sodium level is improved and is down to 145 and a BUN is 36 with a creatinine of 0.7. Her CRP is down to 41. Her LDH level is up to 3339. Rest of the blood work and electrodes are all within normal limits and as mentioned the sodium level is improved and is down to 145. Her lumbar puncture was done and the findings are essentially related to Covid 19 encephalopathy. Case was discussed with neurology. As for the blood sugars, the patient's blood sugars are running in the mid 200s and the patient is on a sliding scale coverage. No major edema in lower extremities. Cardiac rhythm is sinus for now. 06/17/2020, the patient is being seen in follow-up. Unfortunately, she has remained in the emergency and she hasn't been able to find her way up to the ICU. I have her today on a BiPAP at a pressure of 16/8 cm of water with an FiO2 of 100%. The patient was doing well throughout the night and earlier this morning she became significantly more short of breath, hypoxic and tachycardic. Currently she is struggling with her breathing. She is using excessive muscle breathing even while being on a BiPAP. She is able to generate adequate tidal volumes of around 800 mL and her respiratory rate is in the mid 40s. She is tachycardic with a heart rate of 150, sinus. She is unable to speak. She is anxious. She was given a total of 4 mg of morphine which helped her with the breathlessness and shortness of breath. She is awake and arousable and she is moving all 4 extremities. As mentioned earlier, she is a case of COVID-19 related pneumonia. The patient was treated with a combination of treatment and the patient was given Decadron 6 mg IV every 24 hours. The patient also received Tocilizumab 50 mg IV on 06/13/2020. She was having some degree of encephalopathy that was thought to be a viral encephalopathy in the lumbar puncture was done and it showed some mild elevation of the protein. Otherwise negative. Repeat chest x-ray from today has not been completed. This is in progress. Cardiac rhythm is sinus. The patient is likely headed to intubation/mechanical ventilation. 06/18/2020, the patient is currently in the intensive care unit. She seems much more comfortable while being on Precedex is running at 0.7 mcg/kg per minute. She is very evasive ventilator and the patient is currently on a pressure of 16/8 with an FiO2 of 100%. She was struggling with her breathing yesterday and she seems to be essentially the same as yesterday without any interval improvement.. Her current respiratory rate is in the order of mid 30s and she is able to generate adequate amount of tidal volume. She is unresponsive. She is on Precedex. Her breathing is unlabored. She is using accessory muscles of breathing. She has less tachycardic to yesterday. She seems to be also less anxious. She is taking morphine on an as-needed basis for shortness of breath and anxiety. On today's blood gas, pH is 7.48 with a pCO2 of 36 and pO2 of 51. Her current pulse ox is 91%. She remains on Decadron 6 mg IV every 24 hours. The patient also received Tocilizumab 720 mg iv. The patient remains also on anticoagulation on Lovenox 45 mg subcu she will 12 hours. In terms of the inflammatory markers, the patient has a d-dimer of above 34, and the patient has a LDH level of 3728 and the patient is a CRP of 29. The inflammatory markers continued to be quite elevated and essentially unchanged compared to yesterday. She is afebrile for now and she is hemodynamically stable on no pressors. She is receiving nutrition via TPN and the patient is decline in her left upper extremity. CSF cultures have been negative. No neck stiffness. Neurology is also on the case and the working diagnosis is COVID-19 related encephalopathy. Objective - Vital Signs Vital signs: Vital Signs Temp 99.4 F 06/17/20 21:00 Pulse 142 H 06/18/20 06:00 Resp 39 H 06/18/20 06:00 BP 163/96 06/18/20 06:00 Pulse Ox 86 L 06/18/20 06:00 Intake & Output 06/17/20 06/18/20 06/18/20 18:59 06:59 18:59 Intake Total 278.510 317.345 Output Total 1435 400 Balance -1156.490 -82.655 Weight 84.6 kg Intake: IV 200 235 0.9 200 235 Intake, IV Titration 78.510 82.345 Amount Dexmedetomidine/0.9% NaCl 4.759 (Pmx) 400 mcg In Empty Bag 1 bag @ Titrate IV . Q0M DANITA Rx#:[id number] Insulin Regular 100 unit 78.510 77.586 In Sodium Chloride 0.9% 100 ml @ Per Protocol IV .Q0M DANITA Rx#:[id number] Output: Urine 1435 400 Other: Voiding Method Indwelling Catheter Indwelling Catheter - Exam GENERAL EXAM:69-year-old white female on BiPAP support, currently with 16 and 8 and FiO2 100%, and the patient is extremely tachypneic, short of breath, using accessory muscles of breathing at this point in time. HEAD: Normocephalic/atraumatic. EYES: Normal reaction of pupils, equal size. Conjunctiva pink, sclera white. NOSE: Clear with pink turbinates. THROAT: No erythema or exudates. NECK: No masses, no JVD, no thyroid enlargement, no adenopathy. CHEST: No chest wall deformity. Symmetrical expansion. Asynchronous, tachyp neic, using accessory muscle breathing LUNGS: Equal air entry with diffuse crackles CVS: Regular rate and rhythm, normal S1 and S2, no gallops, no murmurs, no rubs ABDOMEN: Soft, nontender. No hepatosplenomegaly, normal bowel sounds, no guarding or rigidity. EXTREMITIES: No clubbing, no edema, no cyanosis, 2+ pulses and upper and lower extremities. MUSCULOSKELETAL: Muscle strength and tone normal. SPINE: No scoliosis or deformity SKIN: No rashes CENTRAL NERVOUS SYSTEM: Patient remains encephalopathic. The patient is not answering questions. He is moving all 4 extremities without any limitation. Morphine, and without significant. She seems to be less agitated at this point. The improvement occurred after giving morphine. - Labs CBC & Chem 7: 06/18/20 04:39 06/17/20 06:17 Labs: Abnormal Lab Results - Last 24 Hours (Table) 06/17/20 06/17/20 06/17/20 Range/Units 06:17 10:10 11:42 WBC (3.8-10.6) k/uL Neutrophils # (1.3-7.7) k/uL Lymphocytes # (1.0-4.8) k/uL D-Dimer >34.10 H (<0.60) mg/L FEU ABG pH (7.35-7.45) ABG pO2 (83-108) mmHg ABG HCO3 (21-25) mmol/L ABG Total CO2 (19-24) mmol/L ABG O2 Saturation (94-97) % Potassium 3.4 L (3.5-5.1) mmol/L BUN 22 H (7-17) mg/dL Glucose 334 H (74-99) mg/dL POC Glucose (mg/dL) 349 H (75-99) mg/dL Magnesium 1.5 L (1.6-2.3) mg/dL Lactate Dehydrogenase (313-618) U/L C-Reactive Protein (<10.0) mg/L 06/17/20 06/17/20 06/17/20 Range/Units 11:42 11:58 13:21 WBC (3.8-10.6) k/uL Neutrophils # (1.3-7.7) k/uL Lymphocytes # (1.0-4.8) k/uL D-Dimer (<0.60) mg/L FEU ABG pH (7.35-7.45) ABG pO2 (83-108) mmHg ABG HCO3 (21-25) mmol/L ABG Total CO2 (19-24) mmol/L ABG O2 Saturation (94-97) % Potassium (3.5-5.1) mmol/L BUN (7-17) mg/dL Glucose (74-99) mg/dL POC Glucose (mg/dL) 345 H 313 H (75-99) mg/dL Magnesium (1.6-2.3) mg/dL Lactate Dehydrogenase 3399 H (313-618) U/L C-Reactive Protein 22.0 H (<10.0) mg/L 06/17/20 06/17/20 06/17/20 Range/Units 14:08 15:02 15:57 WBC (3.8-10.6) k/uL Neutrophils # (1.3-7.7) k/uL Lymphocytes # (1.0-4.8) k/uL D-Dimer (<0.60) mg/L FEU ABG pH (7.35-7.45) ABG pO2 (83-108) mmHg ABG HCO3 (21-25) mmol/L ABG Total CO2 (19-24) mmol/L ABG O2 Saturation (94-97) % Potassium (3.5-5.1) mmol/L BUN (7-17) mg/dL Glucose (74-99) mg/dL POC Glucose (mg/dL) 266 H 239 H 178 H (75-99) mg/dL Magnesium (1.6-2.3) mg/dL Lactate Dehydrogenase (313-618) U/L C-Reactive Protein (<10.0) mg/L 06/17/20 06/17/20 06/17/20 Range/Units 17:37 18:40 20:07 WBC (3.8-10.6) k/uL Neutrophils # (1.3-7.7) k/uL Lymphocytes # (1.0-4.8) k/uL D-Dimer (<0.60) mg/L FEU ABG pH (7.35-7.45) ABG pO2 (83-108) mmHg ABG HCO3 (21-25) mmol/L ABG Total CO2 (19-24) mmol/L ABG O2 Saturation (94-97) % Potassium (3.5-5.1) mmol/L BUN (7-17) mg/dL Glucose (74-99) mg/dL POC Glucose (mg/dL) 208 H 201 H 100 H (75-99) mg/dL Magnesium (1.6-2.3) mg/dL Lactate Dehydrogenase (313-618) U/L C-Reactive Protein (<10.0) mg/L 06/17/20 06/17/20 06/17/20 Range/Units 21:01 21:59 22:55 WBC (3.8-10.6) k/uL Neutrophils # (1.3-7.7) k/uL Lymphocytes # (1.0-4.8) k/uL D-Dimer (<0.60) mg/L FEU ABG pH (7.35-7.45) ABG pO2 (83-108) mmHg ABG HCO3 (21-25) mmol/L ABG Total CO2 (19-24) mmol/L ABG O2 Saturation (94-97) % Potassium (3.5-5.1) mmol/L BUN (7-17) mg/dL Glucose (74-99) mg/dL POC Glucose (mg/dL) 102 H 154 H 209 H (75-99) mg/dL Magnesium (1.6-2.3) mg/dL Lactate Dehydrogenase (313-618) U/L C-Reactive Protein (<10.0) mg/L 06/18/20 06/18/20 06/18/20 Range/Units 00:06 02:08 03:00 WBC (3.8-10.6) k/uL Neutrophils # (1.3-7.7) k/uL Lymphocytes # (1.0-4.8) k/uL D-Dimer (<0.60) mg/L FEU ABG pH (7.35-7.45) ABG pO2 (83-108) mmHg ABG HCO3 (21-25) mmol/L ABG Total CO2 (19-24) mmol/L ABG O2 Saturation (94-97) % Potassium (3.5-5.1) mmol/L BUN (7-17) mg/dL Glucose (74-99) mg/dL POC Glucose (mg/dL) 196 H 147 H 157 H (75-99) mg/dL Magnesium (1.6-2.3) mg/dL Lactate Dehydrogenase (313-618) U/L C-Reactive Protein (<10.0) mg/L 06/18/20 06/18/20 06/18/20 Range/Units 04:10 04:38 04:39 WBC 14.0 H (3.8-10.6) k/uL Neutrophils # 12.8 H (1.3-7.7) k/uL Lymphocytes # 0.7 L (1.0-4.8) k/uL D-Dimer (<0.60) mg/L FEU ABG pH (7.35-7.45) ABG pO2 (83-108) mmHg ABG HCO3 (21-25) mmol/L ABG Total CO2 (19-24) mmol/L ABG O2 Saturation (94-97) % Potassium (3.5-5.1) mmol/L BUN (7-17) mg/dL Glucose (74-99) mg/dL POC Glucose (mg/dL) 137 H (75-99) mg/dL Magnesium (1.6-2.3) mg/dL Lactate Dehydrogenase 3728 H (313-618) U/L C-Reactive Protein 29.9 H (<10.0) mg/L 06/18/20 06/18/20 06/18/20 Range/Units 05:35 05:40 06:19 WBC (3.8-10.6) k/uL Neutrophils # (1.3-7.7) k/uL Lymphocytes # (1.0-4.8) k/uL D-Dimer (<0.60) mg/L FEU ABG pH 7.49 H (7.35-7.45) ABG pO2 52 L* (83-108) mmHg ABG HCO3 27 H (21-25) mmol/L ABG Total CO2 28 H (19-24) mmol/L ABG O2 Saturation 84.3 L (94-97) % Potassium (3.5-5.1) mmol/L BUN (7-17) mg/dL Glucose (74-99) mg/dL POC Glucose (mg/dL) 187 H 216 H (75-99) mg/dL Magnesium (1.6-2.3) mg/dL Lactate Dehydrogenase (313-618) U/L C-Reactive Protein (<10.0) mg/L Assessment and Plan Plan: #1. Acute hypoxic respiratory failure related to acute COVID 19 pneumonia, with onset of symptoms 3 weeks ago, tested positive in the emergency department on 06/07/2020, was outside the window for BAM, was sent home on Decadron and vitamins. Returned for reevaluation worsening symptoms and worsening hypoxia. Patient was treated with a combination of Decadron and Tocilizumab. The patient is currently on BiPAP. Current pressures of 16/8 cm of water with an FiO2 of 100%. Chest x-ray diffuse infiltrates that with pneumonia. Inflammatory markers are quite elevated. The patient remains encephalopathic and the patient probably is going through Covid encephalopathy . For now, the patient is in the intensive care unit. The chest x-ray still showing diffuse bilateral pulmonary infiltrates consistent with Covid 19 related pneumonia and upon comparison, chest x-ray findings and essentially stable. Blood gas was noted. Chest x-ray was noted. Blood gases showing hypoxemia. Inflammatory markers are elevated and the patient is currently off Precedex for encephalopathy and the patient is also receiving TPN for nutritional support. Do not see adequate progress in this patient. On today's evaluation, I see the patient is still very much lethargic, tachypneic, hypoxic on the blood gas, using some excessive muscle breathing and as such I'm recommending proceed with intubation mechanical ventil ation. #2. Increased inflammatory markers and d-dimer related to the above #3. Troponin leak, we'll follow serial troponins, likely secondary to Covid 19 related infection #4. Altered mental status, brain CT and angiogram of the brain negative, possibly related to metabolic encephalopathy/Covid 19 encephalopathy. Lumbar puncture was done and the patient was found to have some mild elevation of the protein. No evidence of any bacterial meningitis. Rule out metabolic encephalopathy. Covid 19 encephalopathy is also considered in this patient. Patient is currently on Precedex, and the mental status continues to be unchanged and altered. #5. Aphasia, rule out possibility of a stroke, neurology consultation has been requested, patient was not a candidate for TPA, recovered #6. Hypertension #7. Hyperlipidemia #8. Diabetes multiple's type II, currently on TPN and she is currently on IV fluids to KVO. insulin is running at 13 units an hour along with a sliding scale Coverage. Blood sugars are elevated. #12 hyperchloremic hypernatremia , and the sodium level has improved and is normal. #13 generalized global weakness in all 4 extremities and the neurologic exam is nonfocal. Plan: Continue BiPAP for respiratory support, , BiPAP of 16/8 with an FiO2 will be weaned down to 100% . I have made recommendations for [employer] to extubate the patient later on a mechanical ventilation. Following that, she patient will likely need a higher level of sedation. We'll continue the Precedex Repeat chest x-ray in the morning and the blood gases were noted Continue Precedex @ 0.6 mgrams per kilogram per minute. Continue insulin drip for now Morphine 2 mg IV push every 2-4 hours for agitation and restlessness as needed Encephalopathy is obviously concern. Neurology evaluation was noted Treatment with Il-6 MAB, Tocilizumab, continue Decadron, Lovenox 40 mg daily, continue Pepcid, The patient is receiving TPN for nutritional support @ 60 cc /hr, we'll likely s witch her to enteral feeding once the patient is intubated. We will adjust insulin drip accordingly. will follow her clinical course closely Patient is critically ill and will continue to follow make further recommendations based on her progress The patient will need intubation mechanical ventilation. Critically care evaluation for more than 30 minutes
[2020-06-18] MEDS ORDERED: INSULIN ASPART (NovoLOG) 100 UNIT/ML VIAL SQ SCH (07:30)
[2020-06-18] MEDS ORDERED: fentaNYL (PF). 1,000 MCG in SODIUM CHLORIDE 0.9% 80 ML IV SCH (07:30)
[2020-06-18] MEDS ORDERED: PROPOFOL 10 MG/ML 20 ML VIAL IV ONE (07:50)
[2020-06-18] MEDS ORDERED: ROCURONIUM 10 MG/ML (5 ML VIAL) IV ONE (07:50)
[2020-06-18] MEDS ORDERED: SUCCINYLCHOLINE CHLORIDE VIAL 200 MG/10 ML VIAL IV ONE (07:50)
--- NOTE | 2020-06-18 07:58 | XR ---
EXAMINATION TYPE: XR chest 1V portable DATE OF EXAM: 06/18/2020 COMPARISON: 06/18/2019 HISTORY: Shortness of breath TECHNIQUE: Single frontal view of the chest is obtained. FINDINGS: Diffuse interstitial pattern with basilar consolidation stable. No pneumothorax. PICC line stable. Hypertrophic change of the spine. Heart size normal. Small bilateral pleural effusions. IMPRESSION: Stable findings most typical of interstitial pneumonia with basilar infiltrates.
[2020-06-18] MEDS: INSULIN REGULAR 100 UNIT in SODIUM CHLORIDE 0.9% 100 ML IV SCH ×3 (08:08→22:11)
[2020-06-18 08:37] LABS: Glucose,Whole Blood 225 mg/dL (75-99)
[2020-06-18] MEDS ORDERED: ACETAMINOPHEN IV (For NPO) 1,000 MG in EMPTY BAG 1 BAG IVPB STA (08:43)
--- NOTE | 2020-06-18 09:22 | XR ---
EXAMINATION TYPE: XR chest 1V portable DATE OF EXAM: 06/18/2020 COMPARISON: 06/18/2020 INDICATION: Tube placement TECHNIQUE: Single frontal view of the chest is obtained. FINDINGS: The heart size is normal. The pulmonary vasculature is normal. Diffuse increased lung markings are present bilaterally. This may be slightly progressive from compar henny. Endotracheal tuber is in place with the tip 4.5 cm above the brittaney. Nasogastric tube transverses the thorax. Left-sided PICC line is present with the tip in the superior vena cava right atrial junction . IMPRESSION: 1. Worsening diffuse bilateral lung infiltrates. 2. Lines and catheters discussed above.
[2020-06-18] MEDS ORDERED: CISATRACURIUM 2 MG/ML 5 ML VIAL IV ONE ×2 (09:33→09:34)
[2020-06-18 09:35] LABS: Glucose,Whole Blood 195 mg/dL (75-99)
[2020-06-18] MEDS: CISATRACURIUM 200 MG in SODIUM CHLORIDE 0.9% 180 ML IV SCH (09:40)
[2020-06-18] MEDS: 1: MVI, ADULT NO.4 WITH VIT K 10 ML, TRACE (CONC-1ML/DOSE) 1 ML in AMINO ACID 5%-D20W+LY IV SCH ×3 (10:16)
[2020-06-18] MEDS: ASCORBIC ACID 500 MG TAB PO SCH (10:16)
[2020-06-18] MEDS: SERTRALINE 50 MG TAB PO SCH (10:17)
[2020-06-18] MEDS: CHOLECALCIFEROL 25 MCG (1000 IU) TABLET PO SCH (10:17)
[2020-06-18] MEDS: LISINOPRIL-HCTZ 20-25 MG 1 EACH TAB PO SCH (10:17)
[2020-06-18] MEDS: ENOXAPARIN 60 MG/0.6 ML SYRINGE SQ SCH ×2 (10:35→22:05)
[2020-06-18] MEDS: CHLORHEXIDINE GLUCONATE 15 ML CUP MUCOUS MEM SCH ×2 (10:35→20:49)
[2020-06-18] MEDS: FAMOTIDINE 20 MG/2 ML VIAL IV SCH ×2 (10:35→20:49)
[2020-06-18] MEDS: DEXAMETHASONE SOD PHOSPHATE 10 MG/ML 1 ML VIAL IV SCH (10:35)
[2020-06-18] MEDS: FUROSEMIDE 10 MG/ML 4 ML VIAL IV SCH (10:39)
[2020-06-18 11:13] LABS: Glucose,Whole Blood 178 mg/dL (75-99)
[2020-06-18 12:04] LABS: ABG Base Excess 1.9 mmol/L; ABG HCO3 28 mmol/L (21-25); ABG PCO2 59 mmHg (35-45); ABG PH 7.29 (7.35-7.45); ABG PO2 101 mmHg (83-108); ABG TCO2 30 mmol/L (19-24); Allen Test Performed? Yes
[2020-06-18 14:18] LABS: Glucose,Whole Blood 125 mg/dL (75-99)
[2020-06-18 14:49] LABS: African American GFR (CKD) >90 (>60 ml/min/1.73 sqM); Anion Gap 9 mmol/L; Blood Urea Nitrogen 24 mg/dL (7-17); Calcium 9.1 mg/dL (8.4-10.2); Carbon Dioxide 29 mmol/L (22-30); Chloride 105 mmol/L (98-107); Glucose 141 mg/dL (74-99); Non-African American GFR(CKD) 84 (>60 ml/min/1.73 sqM); Potassium 3.5 mmol/L (3.5-5.1); Sodium 143 mmol/L (137-145)
[2020-06-18 15:57] LABS: Glucose,Whole Blood 241 mg/dL (75-99)
[2020-06-18 17:10] LABS: Glucose,Whole Blood 167 mg/dL (75-99)
[2020-06-18] MEDS: NOREPINEPHRINE 4 MG in SODIUM CHLORIDE 0.9% 250 ML IV SCH (18:34)
[2020-06-18 18:55] LABS: Glucose,Whole Blood 133 mg/dL (75-99)
--- NOTE | 2020-06-18 19:06 | P.PN ---
Progress Note - Text Progress Note Date: 06/18/20 Chief Complaint: Short of breath History of presenting complaint: This is a 69-year-old patient who follows with Dr. blake . Patient was last seen in the ER about 5 days ago. She then had an having respiratory symptoms including cough for about 2 or 3 weeks prior to that. On this presentation is patient is altered sense. She was last seen normal at home on Sunday. EMS was called out and they found the patient to be hypoxic with 46%. Patient was ventilated with a bag valve and pulse oxygenation improved. He was placed on a nonrebreather and brought here. Here patient's problem of BiPAP. And is somewhat delirious. Not able to give any history. Patient chronic stable medical conditions include diabetes, hypertension, hyperlipidemia, history of breast cancer with right mastectomy. No family members currently present. Admitted with acute severe bilateral COVID 19 pneumonia, acute severe hypoxic respiratory failure, acute metabolic encephalopathy, with delirium. Patient placed on oxygen. Decadron. Lovenox. Consultation to neurology, pulmonary. Lumbar puncture/CSF unremarkable. Patient was placed on BiPAP. Progression of respiratory status patient intubated on June 18 Today-ICU: Ventilator: FiO2 100 PEEP of 15. Telemetry: Sinus rhythm. Drips include propofol, nitroprusside, insulin, fentanyl. Review of systems: Patient intubated Active Medications Acetaminophen (Acetaminophen Suppository 650 Mg Supp) 650 mg RECTAL Q4HR PRN PRN Reason: Fever And/ Or Mild Pain Last Admin: 06/13/20 21:46 Dose: 650 mg Documented by: Amlodipine Besylate (Amlodipine 5 Mg Tab) 5 mg PO BID [facility] Last Admin: 06/18/20 10:16 Dose: Not Given Documented by: Ascorbic Acid (Ascorbic Acid 500 Mg Tab) 1,000 mg PO DAILY [facility] Last Admin: 06/18/20 10:16 Dose: Not Given Documented by: Atorvastatin Calcium (Atorvastatin 10 Mg Tab) 10 mg PO HS [facility] Last Admin: 06/18/20 06:51 Dose: Not Given Documented by: Chlorhexidine Gluconate (Chlorhexidine Gluconate 15 Ml Cup) 15 ml MUCOUS MEM BID [facility] Last Admin: 06/18/20 10:35 Dose: 15 ml Documented by: Cholecalciferol (Cholecalciferol 25 Mcg (1000 Iu) Tablet) 25 mcg PO DAILY [facility] Last Admin: 06/18/20 10:17 Dose: Not Given Documented by: Clonidine HCl (Clonidine 0.2 Mg/24hr Patch) 1 patch TRANSDERM Q7D [facility] Last Admin: 06/16/20 20:04 Dose: 1 patch Documented by: Dexamethasone Sodium Phosphate (Dexamethasone Sod Phosphate 10 Mg/Ml 1 Ml Vial) 6 mg IV DAILY [facility] Last Admin: 06/18/20 10:35 Dose: 6 mg Documented by: Enoxaparin Sodium (Enoxaparin 60 Mg/0.6 Ml Syringe) 45 mg SQ Q12H [facility] Last Admin: 06/18/20 10:35 Dose: 45 mg Documented by: Famotidine (Famotidine 20 Mg/2 Ml Vial) 20 mg IV Q12HR [facility] Last Admin: 06/18/20 10:35 Dose: 20 mg Documented by: Furosemide (Furosemide 10 Mg/Ml 4 Ml Vial) 40 mg IV DAILY [facility] Last Admin: 06/18/20 10:39 Dose: 40 mg Documented by: Gabapentin (Gabapentin 300 Mg Cap) 600 mg PO BID [facility] Last Admin: 06/18/20 10:17 Dose: Not Given Documented by: Lisinopril/HCTZ (Lisinopril-Hctz 20-25 Mg 1 Each Tab) 1 each PO DAILY [facility] Last Admin: 06/18/20 10:17 Dose: Not Given Documented by: Parenteral Vitamin Supplement 10 ml/ Zinc/Copper/Manganese/Selenium 1 ml/ Amino Ac/Electrol/Dextrose/Calcium 1,011 mls @ 60 mls/hr IV .BY DURATION [facility] Last Admin: 06/17/20 21:06 Dose: 60 mls/hr Documented by: Amino Ac/Electrol/Dextrose/Calcium (Clinimix E 5%-20% Solution) 1,000 mls @ 60 mls/hr IV .BY DURATION [facility] Last Admin: 06/18/20 10:16 Dose: Not Given Documented by: Insulin Human Regular 100 unit (/ Sodium Chloride) 101 mls @ 0 mls/hr IV .Q0M [facility]; Protocol Last Titration: 06/18/20 18:54 Dose: 0 units/hr, 0 mls/hr Documented by: Propofol 1,000 mg/ IV Solution 100 mls @ 0 mls/hr IV .Q0M [facility]; Protocol Last Admin: 06/18/20 15:18 Dose: 30 mcg/kg/min, 15.228 mls/hr Documented by: Cisatracurium Besylate 200 mg/ (Sodium Chloride) 200 mls @ 5.076 mls/hr IV .Q24H [facility]; Protocol Last Titration: 06/18/20 15:36 Dose: 1 mcg/kg/min, 5.076 mls/hr Documented by: Norepinephrine Bitartrate 4 mg (/ Sodium Chloride) 254 mls @ 16.116 mls/hr IV .[id number] [facility]; Protocol Last Titration: 06/18/20 18:40 Dose: 0.08 mcg/kg/min, 25.786 mls/hr Documented by: Insulin Human Regular (Insulin Regular Bolus (From Drip Bag)) 8.5 unit 0.1 unit/kg (8.5 unit) IV ONCE PRN PRN Reason: Blood Sugar - High Stop: 07/18/20 23:00 Morphine Sulfate (Morphine Sulfate 2 Mg/Ml Syringe) 2 mg IVP Q2H PRN PRN Reason: Moderate Pain Last Admin: 06/18/20 04:31 Dose: 2 mg Documented by: Naloxone HCl (Naloxone 0.4 Mg/Ml 1 Ml Vial) 0.2 mg IV Q2M PRN PRN Reason: Opioid Reversal Sertraline HCl (Sertraline 50 Mg Tab) 50 mg PO DAILY [facility] Last Admin: 06/18/20 10:17 Dose: Not Given Documented by: Sodium Chloride (Sodium Chloride 0.9% Flush 10 Ml Syringe) 10 ml IV Q4HR PRN PRN Reason: PICC Line Sodium Chloride (Sodium Chloride 0.9% Flush 10 Ml Syringe) 10 ml IV WEEKLY [facility] Sodium Chloride (Sodium Chloride 0.9% Flush 10 Ml Syringe) 20 ml IV Q4HR PRN PRN Reason: PICC Line Past medical history to include: Breast cancer with mastectomy, diabetes, hypertension, hyperlipidemia, anxiety Social history: Former smoker. Lives alone. Family history: Patient cannot tell Physical examination: VITAL SIGNS: 39.1, 117, 28, 93/53, 98% on the ventilator and 100% GENERAL: Sedated, intubated LUNGS:[ Respiratory rate increased,. PSYCH: Unable to assess. Rest of the exam per pulmonary and nursing INVESTIGATIONS, reviewed in the clinical context: June 18: WBC 14 hemoglobin 13.3 potassium 3.5 creatinine 0.74 LDH 3728 CRP 29.9 d-dimer more than 34 June 17: D-dimer more than 34 LDH 3399, CRP 22 June 16: WBC 8.4 hemoglobin 11.5 platelets 334 d-dimer greater than 34 potassium 3.5 creatinine 0.74 LDH 3339 CRP 41.5 sodium 145 June 15: WBC 9.1 hemoglobin 11.6 sodium 151 potassium 3.4 creatinine 0.86 June 14: WBC 6.6 hemoglobin 12.5 platelets 370 sodium 154 potassium 4.3 creatinine 0.94 June 13: D-dimer 2.13 ABG pH 7.39 pCO2 45 pO2 68 CRP 356 troponin I 0.190 WBC 7.3 hemoglobin 11.8 platelets 357 ABG: PH 7.45 pCO2 32, pO2 79 Potassium 3.9 creatinine 1.0 blood glucose 321 Troponin I 0.104 CRP 334 EKG tracing personally reviewed by me-normal sinus rhythm, nonspecific ST segment changes Chest x-ray film personally reviewed by me-bilateral infiltrate severe CT angio chest: Bilateral diffuse patchy groundglass opacities and consolidation. CTA head and neck: Negative Computed tomography scan of the brain: Negative Assessment and plan: -Acute severe bilateral COVID 19 pneumonia, diagnosed 5 days before admission, with symptoms present 2-3 weeks prior to that.-Not improving on IV dexamethasone, subcu Lovenox, vitamin C vitamin D Pepcid zinc. ACTEMRA -Acute severe hypoxic respiratory failure, secondary to COVID 19 pneumonia-not improving Initially BiPAP-100%. Intubated today June 18. On ventilator with FiO2 100% -Acute delirium and acute metabolic encephalopathy from COVID 19 pneumonia Follow closely. -Diabetes mellitus type 2 on oral hypoglycemic, uncontrolled with hyperglycemia secondary to steroids Hold off oral hypoglycemic. On insulin drip- -Essential hypertension Not able to tolerate oral medications. Catapres patch 0.2 -Diabetic peripheral neuropathy Resume gabapentin when able to tolerate by mouth -Hyperlipidemia Resume Mevacor unable to tolerate by mouth -Patient underwent lumbar puncture. CSF benign. -Significant hypernatremia with hyperchloremia.-Corrected Cutback D5.45 - TPN Prognosis remains guarded. No intubated. Follow-up with business reporter.
[2020-06-18 20:37] LABS: Glucose,Whole Blood 165 mg/dL (75-99)
[2020-06-18 21:11] LABS: Glucose,Whole Blood 164 mg/dL (75-99)
[2020-06-18 22:10] LABS: Glucose,Whole Blood 142 mg/dL (75-99)
[2020-06-18 22:30] LABS: Magnesium 1.9 mg/dL (1.6-2.3); Potassium 3.7 mmol/L (3.5-5.1)
[2020-06-18] MEDS ORDERED: Potassium Replacement Protocol 1 EACH MISC MISCELLANE PRN (22:38)
[2020-06-18] MEDS ORDERED: Magnesium Replacement Protocol 1 EACH MISC MISCELLANE PRN (22:39)
[2020-06-18 22:51] LABS: Glucose,Whole Blood 135 mg/dL (75-99)
[2020-06-18] MEDS: MAGNESIUM SULFATE-D5W PMX 1 GM in DEXTROSE/WATER 1 100ML.BAG IVPB SCH ×2 (22:58→23:07)
[2020-06-18] MEDS ORDERED: POTASSIUM BICARBONATE/CIT AC 20 MEQ TABLET.EFF NG-TUBE SCH (23:00)
[2020-06-18 23:54] LABS: Glucose,Whole Blood 128 mg/dL (75-99)
[2020-06-19] MEDS: 1: MVI, ADULT NO.4 WITH VIT K 10 ML, TRACE (CONC-1ML/DOSE) 1 ML in AMINO ACID 5%-D20W+LY IV SCH ×3 (00:55)
[2020-06-19 01:32] LABS: Glucose,Whole Blood 157 mg/dL (75-99)
[2020-06-19 03:12] LABS: Glucose,Whole Blood 137 mg/dL (75-99)
[2020-06-19] MEDS ORDERED: DEXTROSE 5% IN WATER 100 ML with AMIODARONE 150 MG IV ONE (03:30)
[2020-06-19] MEDS ORDERED: AMIODARONE 360 MG in DEXTROSE 5% IN WATER 200 ML IV ONE ×2 (04:00)
[2020-06-19 04:14] LABS: Glucose,Whole Blood 181 mg/dL (75-99)
[2020-06-19] MEDS ORDERED: DILTIAZEM 125 MG in SODIUM CHLORIDE 0.9% 100 ML IV SCH (04:30)
[2020-06-19 04:37] LABS: Basophils % (A) 0 %; Eosinophils # (A) 0.2 k/uL (0-0.7); Eosinophils % (A) 1 %; HCT 39.4 % (34.0-46.0); HGB 12.5 gm/dL (11.4-16.0); Hypochromasia Slight; Lymphocytes # (A) 0.9 k/uL (1.0-4.8); Lymphocytes % (A) 6 %; MCH 29.7 pg (25.0-35.0); MCHC 31.6 g/dL (31.0-37.0); MCV 93.9 fL (80.0-100.0); Mean Platelet Volume 9.3; Monocytes # (A) 0.3 k/uL (0-1.0); Monocytes % (A) 2 %; Neutrophils # (A) 14.4 k/uL (1.3-7.7); Neutrophils % (A) 90 %; Platelet Count 215 k/uL (150-450); RDW 14.5 % (11.5-15.5)
[2020-06-19 04:57] LABS: ALT 83 U/L (4-34); AST 138 U/L (14-36); African American GFR (CKD) >90 (>60 ml/min/1.73 sqM); Albumin 2.9 g/dL (3.5-5.0); Alkaline Phosphatase 129 U/L (38-126); Anion Gap 7 mmol/L; Blood Urea Nitrogen 35 mg/dL (7-17); C Reactive Protein 3.4 mg/dL (<1.0); Calcium 8.7 mg/dL (8.4-10.2); Carbon Dioxide 29 mmol/L (22-30); Chloride 105 mmol/L (98-107); Glucose 183 mg/dL (74-99); Magnesium 2.4 mg/dL (1.6-2.3); Non-African American GFR(CKD) 82 (>60 ml/min/1.73 sqM); Potassium 4.6 mmol/L (3.5-5.1); Sodium 141 mmol/L (137-145); Total Bilirubin 0.8 mg/dL (0.2-1.3); Total Protein 5.7 g/dL (6.3-8.2)
[2020-06-19 05:02] LABS: Allen Test Performed? Yes
[2020-06-19 05:03] LABS: ABG HCO3 29 mmol/L (21-25); ABG PCO2 47 mmHg (35-45); ABG PH 7.39 (7.35-7.45); ABG PO2 79 mmHg (83-108); ABG TCO2 30 mmol/L (19-24)
[2020-06-19 05:17] LABS: Glucose,Whole Blood 169 mg/dL (75-99)
[2020-06-19 05:28] LABS: LDH 2524 U/L (313-618)
[2020-06-19] MEDS: CISATRACURIUM 200 MG in SODIUM CHLORIDE 0.9% 180 ML IV SCH (05:54)
[2020-06-19 06:06] LABS: Glucose,Whole Blood 167 mg/dL (75-99)
[2020-06-19] MEDS: NOREPINEPHRINE 4 MG in SODIUM CHLORIDE 0.9% 250 ML IV SCH ×2 (06:48→11:50)
[2020-06-19] MEDS ORDERED: HEPARIN SODIUM 1,000 UN/ML (10ML VL) IV PRN (07:01)
--- NOTE | 2020-06-19 07:06 | P.PN ---
Subjective Progress Note Date: 06/19/20 69-year-old white female patient who presented to the emergency department on 06/12/2020 at 1400 in the afternoon with complaints of shortness of breath, and her first onset of symptoms was approximately 2-3 weeks ago. She tested positive for COVID 19 on 06/07/2020. Patient was seen in the emergency department at that time, and was having symptoms of fatigue, shortness of breath and cough. She does have multiple comorbidities including hypertension, diabetes mellitus, dyslipidemia, history of breast cancer, patient is a former smoker. Was outside the window for monoclonal antibody, she was sent home on Decadron, and vitamins. Chest x-ray at that time showed interstitial infiltrates. Patient returned with worsening symptoms, chest x-ray on the 2020 showed interval bilateral diffuse infiltrates. In addition patient was confused, on arrival of the EMS to the scene patient was severely hypoxemic with a pulse ox of only 46%. She was bagged valve ventilated with improvement in her oxygen, she was placed on BiPAP support. Brain CT showed no acute intracranial abnormality. Angiography CT showed no acute abnormality of the head/neck, and a moderate stenosis of the right proximal ICA. CBC was positive for lymphopenia with lymphocyte count 0.6, d-dimer was 1.36, sodium is 143, potassium is 3.9, chloride is 108, CO2 22, BUN is 50, creatinine is 1, glucose level was 321, plasma lactic acid is 1.3, AST was 84, ALT was 31, alk phos was 50, troponin was 0.104, CRP was 334. Patient was started on IV Decadron in the emergency department, she remains on BiPAP support, currently at pressures of 12 and 6 and FiO2 100%, she appears to have increased work of breathing, she is not able to answer questions related to dyspnea, repeat blood gas was done showing pO2 of 68, pCO2 45, pH of 7.39 and subsequently her BiPAP settings were adjusted to 14/7 and FiO2 100%, patient is awaiting a bed in the intensive care unit, she is awake and alert, she did answer some simple questions yes or no for me while on BiPAP support, we'll start the patient on IL-6 MAB, Tocilizumab. We'll continue to closely follow her clinical course, continues to deteriorate patient required intubation and placement on mechanical ventilatory supp On today's evaluation of 06/14/2020 the patient is being seen for a follow-up regarding acute hypoxic respiratory failure and COVID 19 pneumonia. The patient was status post positive on 06/07/2020 and the patient was symptomatic prior to that. The patient presented with hypoxic respiratory failure and the patient was placed on a BiPAP which is currently at the pressure of 14/7 cm of water and FiO2 of 900%. Chest x-ray showing bilateral patchy by troponin infiltrates consistent with pneumonia. The patient was started on steroids and Tocilizumab was ordered. The patient is having increased shortness of breath even while on the BiPAP. The patient is quite dyspneic even while on the BiPAP and is unable to complete full sentences. Blood gases from yesterday was noted. CT angiogram of the head and neck showed moderate stenosis of the right proximal ICA. CAT scan of the brain was negative., CRP of 356, troponin was 0.19 and the patient's d-dimer was 2.13. The patient is currently on Decadron 6 mg IV every 24 hours. The patient is on Lovenox 40 mg subcu every 24 hours. The patient on Levemir insulin 20 units daily at bedtime that was started yesterday the patient will be taken off the insulin drip. Currently the patient is also on various hypertensive medications including Zestoretic and Kl clonidine patch and Norvasc. neurologically, the patient is still quite somnolent. She is moving all 4 extremities. No neck stiffness. This encephalopathy is probably related to Covid 19 infection. Neuro is also on the case. His blood work, the sodium level is at 154 with a BUN of 61 and creatinine of 0.9. The patient on IV fluid and currently receiving 0.9 at the rate of 100 mL an hour. On 06/15/2020, the patient is being seen in follow-up in the intensive care unit. This is a case of 69-year-old female patient with Covid associated pneumonia. The patient remains in the emergency department awaiting her bed in the ICU. Currently she is on a BiPAP at a pressure of 14/7 cm of water with an FiO2 of 100%. The patient is quite synchronous and tolerated the BiPAP treatment. Her current tidal volume generated is around 840 mL with a respiratory rate of 29 and a minute ventilation of 23. Chest x-ray from today has not been done and this is supposed to be repeated. The chest x-ray from y was showing diffuse bilaterally pulmonary infiltrates more so in the left perihilar area. No new blood gases. D-dimer is today at 34 and the CRP level is at 67. LDH is still pending for now. Neurologically, the patient is still lethargic and somnolent and encephalopathic. She is on Precedex running at 0.5 mcg/kg per minute. Lumbar puncture was done yesterday and the patient was found to have a CSF RBC of 7, nucleated cells were only a 2, glucose was 79 and the protein was slightly elevated at 66. This is not consistent with bacterial meningitis. It may be consistent with viral encephalopathy. Gram stain of the CSF was negative. Cultures are also negative. I would say clin ically she is essentially unchanged. She is more comfortable while being on Precedex. She is hemodynamically stable and she is afebrile. She is still receiving IV fluids in the form of D5 half-normal saline at the rate of 1 25 mL an hour. She is currently off the insulin drip. Her blood sugar is at 128 and the patient is on Levemir insulin 20 units daily at bedtime along with a sliding scale coverage. The patient's renal function currently is stable with a BUN of 63 and a creatinine of 0.8. Sodium level was improving and his sodium level was on the decline it was already down to 151. 06/16/2020, the patient remains on a BiPAP in the emergency department a pressure of 14/7 and FiO2 is currently at 80% and her current pulse ox is around 96%. Her generated tidal volume is around 816 with a respiratory rate of 30 and a minute volume of 25 L per minute. I took her off the Precedex yesterday the patient was quite lethargic. This morning, she is more arousable. She is extremely weak. She is following some simple commands. She is wiggling her toes and moving her arms upon demand. She cannot hold a conversation as the patient is very much BiPAP dependent at this point in time. She easily desaturates once she is off the BiPAP. She is hemodynamically stable for now. The chest x-ray showing bilateral pulmonary infiltrates, slightly improved compared to yesterday. In terms of her blood work, the patient's blood sugars at 250. She is currently on D5 half-normal saline at the rate of 150 mL an hour. Her sodium level is improved and is down to 145 and a BUN is 36 with a creatinine of 0.7. Her CRP is down to 41. Her LDH level is up to 3339. Rest of the blood work and electrodes are all within normal limits and as mentioned the sodium level is improved and is down to 145. Her lumbar puncture was done and the findings are essentially related to Covid 19 encephalopathy. Case was discussed with neurology. As for the blood sugars, the patient's blood sugars are running in the mid 200s and the patient is on a sliding scale coverage. No major edema in lower extremities. Cardiac rhythm is sinus for now. 06/17/2020, the patient is being seen in follow-up. Unfortunately, she has remained in the emergency and she hasn't been able to find her way up to the ICU. I have her today on a BiPAP at a pressure of 16/8 cm of water with an FiO2 of 100%. The patient was doing well throughout the night and earlier this morning she became significantly more short of breath, hypoxic and tachycardic. Currently she is struggling with her breathing. She is using excessive muscle breathing even while being on a BiPAP. She is able to generate adequate tidal volumes of around 800 mL and her respiratory rate is in the mid 40s. She is tachycardic with a heart rate of 150, sinus. She is unable to speak. She is anxious. She was given a total of 4 mg of morphine which helped her with the breathlessness and shortness of breath. She is awake and arousable and she is moving all 4 extremities. As mentioned earlier, she is a case of COVID-19 related pneumonia. The patient was treated with a combination of treatment and the patient was given Decadron 6 mg IV every 24 hours. The patient also received Tocilizumab 50 mg IV on 06/13/2020. She was having some degree of encephalopathy that was thought to be a viral encephalopathy in the lumbar puncture was done and it showed some mild elevation of the protein. Otherwise negative. Repeat chest x-ray from today has not been completed. This is in progress. Cardiac rhythm is sinus. The patient is likely headed to intubation/mechanical ventilation. 06/18/2020, the patient is currently in the intensive care unit. She seems much more comfortable while being on Precedex is running at 0.7 mcg/kg per minute. She is very evasive ventilator and the patient is currently on a pressure of 16/8 with an FiO2 of 100%. She was struggling with her breathing yesterday and she seems to be essentially the same as yesterday without any interval improvement.. Her current respiratory rate is in the order of mid 30s and she is able to generate adequate amount of tidal volume. She is unresponsive. She is on Precedex. Her breathing is unlabored. She is using accessory muscles of breathing. She has less tachycardic to yesterday. She seems to be also less anxious. She is taking morphine on an as-needed basis for shortness of breath and anxiety. On today's blood gas, pH is 7.48 with a pCO2 of 36 and pO2 of 51. Her current pulse ox is 91%. She remains on Decadron 6 mg IV every 24 hours. The patient also received Tocilizumab 720 mg iv. The patient remains also on anticoagulation on Lovenox 45 mg subcu she will 12 hours. In terms of the inflammatory markers, the patient has a d-dimer of above 34, and the patient has a LDH level of 3728 and the patient is a CRP of 29. The inflammatory markers continued to be quite elevated and essentially unchanged compared to yesterday. She is afebrile for now and she is hemodynamically stable on no pressors. She is receiving nutrition via TPN and the patient is decline in her left upper extremity. CSF cultures have been negative. No neck stiffness. Neurology is also on the case and the working diagnosis is COVID-19 related encephalopathy. 06/19/2020 on seeing the patient in the intensive care unit. Noted the patient was brought in to the ICU yesterday and she became progressively more confused, tachypneic, tachycardic and hypoxic and she was failing also BiPAP which she was able to tolerate for a few days. At that point, the decision was to intubate the patient placed on mechanical ventilator. Following intubation, the patient was placed on sedation with propofol and currently propofol is running at 40 mg/kg/m. She also had to be paralyzed and the patient is currently on Nimbex running at 2 mcg/kg per minute. She was taken off the Precedex. For now, she is well sedated and paralyzed on a mechanical ventilator and she is currently on assist control mode rate of 28 with a tidal volume of 400 and FiO2 of 70% with a PEEP of 15. At peak airway pressure on the mechanical ventilator is 33. Static pressure is 31. No orotracheal secretions. The chest x-ray from today showing adequate positioning of the orotracheal tube. The patient also has a orogastric tube in place. The patient had diffuse breath and pulmonary infiltrates consistent with COVID-19 related pneumonia/ARDS. Her d-dimer was elevated at 35 and the patient was receiving 45 mg of subcu Lovenox every 12 hours. LDH from today is 2544 and a CRP level is at 3.4 and both are elevated. Most recent blood gases from this morning shows a pH of 7.39 with a pCO2 of 47 and pO2 of 79. The patient remains on steroids and she is receiving Decadron 6 g IV every 24 hours. Earlier during the shift, the patient became hypotensive and she had to be placed on pressors and the patient is currently on norepinephrine infusion running at 0.06 mcg/kg per minute. Earlier this morning at around 3:15 AM, the patient also went into new onset atrial fibrillation with rapid ventricular response. She was given amiodarone bolus 150 mg IV and following that she was given a amiodarone at 1 mg per minute for loading protocol. There was no impact on her heart rate. The patient was also given Cardizem, bolus initially at a dose of 5 mg IV and following that started on a maintenance of 10 mg an hour. She is currently still having atrial fibrillation and her he art rate is in the 130 to 140 range. Blood pressure is soft and the patient is stranding thousand becoming hypotensive. Urine output is order of early cc an hour. IV fluids are running at 20 mL an hour and the patient is on enteral feeding for nutritional support in the form of vital high protein at the rate of 20 mL an hour and the goal is at 38. In terms of her CSF cultures, if very much came back negative. The patient had over the encephalopathy prior to her getting intubated. The triglyceride at baseline prior to her initiation of propofol infusion was 594. I am inclined to switching this patient alternatives sedation. She was on Precedex however this was not effective in combination with fentanyl. I will consider adding Versed infusion. Objective - Vital Signs Vital signs: Vital Signs Temp 99.7 F H 06/19/20 04:00 Pulse 152 H 06/19/20 06:00 Resp 28 H 06/19/20 06:00 BP 115/70 06/18/20 10:00 Pulse Ox 95 06/19/20 06:00 Intake & Output 06/18/20 06/18/20 06/19/20 06:59 18:59 06:59 Intake Total 317.345 538.798 773.724 Output Total 400 520 365 Balance -82.655 18.798 408.724 Weight 84.6 kg 84.6 kg 86.1 kg Intake: IV 235 325 190 0.9 235 325 190 Intake, IV Titration 82.345 213.798 483.724 Amount Cisatracurium 200 mg In 21.615 95.936 Sodium Chloride 0.9% 180 ml @ 1 MCG/KG/MIN 5.076 mls/hr IV .Q24H [facility] Rx#: [id number] Dexmedetomidine/0.9% NaCl 4.759 (Pmx) 400 mcg In Empty Bag 1 bag @ Titrate IV . Q0M [facility] Rx#:[id number] Diltiazem 125 mg In 3.917 Sodium Chloride 0.9% 100 ml @ Per Protocol IV .Q0M [facility] Rx#:[id number] Insulin Regular 100 unit 77.586 13.568 In Sodium Chloride 0.9% 100 ml @ Per Protocol IV .Q0M [facility] Rx#:[id number] Insulin Regular 100 unit 109.972 60.432 In Sodium Chloride 0.9% 100 ml @ Per Protocol IV .Q0M [facility] Rx#:[id number] Norepinephrine 4 mg In 1.612 158.638 Sodium Chloride 0.9% 250 ml @ 0.05 MCG/KG/MIN 16. 116 mls/hr IV .[id number] [facility] Rx#:[id number] fentaNYL (PF). 1,000 mcg 0.028 In Sodium Chloride 0.9% 80 ml @ Per Protocol IV . Q0M [facility] Rx#:[id number] propofoL 1,000 mg In 67.003 164.801 Empty Bag 1 bag @ Titrate IV .Q0M [facility] Rx#: [id number] Tube Feeding 100 Output: Urine 400 520 365 Other: Voiding Method Indwelling Catheter Indwelling Catheter Indwelling Catheter ABP, PAP, CO, CI - Last Documented Arterial Blood Pressure 98/62 - Exam GENERAL EXAM:69-year-old white female on combination of propofol and Pneumovax for sedation paralysis. Currently intubated on a mechanical ventilator. Well sedated, paralyzed for now. HEAD: Normocephalic/atraumatic. EYES: Normal reaction of pupils, equal size. Conjunctiva pink, sclera white. NOSE: Clear with pink turbinates. THROAT: No erythema or exudates. NECK: No masses, no JVD, no thyroid enlargement, no adenopathy. CHEST: No chest wall deformity. Symmetrical expansion. Asynchronous, tachypneic, using accessory muscle breathing LUNGS: Equal air entry with diffuse crackles CVS: Regular rate and rhythm, normal S1 and S2, no gallops, no murmurs, no rubs ABDOMEN: Soft, nontender. No hepatosplenomegaly, normal bowel sounds, no guarding or rigidity. EXTREMITIES: No clubbing, no edema, no cyanosis, 2+ pulses and upper and lower extremities. MUSCULOSKELETAL: Muscle strength and tone normal. SPINE: No scoliosis or deformity SKIN: No rashes CENTRAL NERVOUS SYSTEM: The patient is sedated and paralyzed. She is moving no extremities for now as the patient is well paralyzed with Temitope for being 2 out of 4. Pupils are equal and reactive to light. - Labs CBC & Chem 7: 06/19/20 04:04 06/19/20 04:04 Labs: Abnormal Lab Results - Last 24 Hours (Table) 06/18/20 06/18/20 06/18/20 Range/Units 04:38 04:39 07:06 WBC (3.8-10.6) k/uL Neutrophils # (1.3-7.7) k/uL Lymphocytes # (1.0-4.8) k/uL D-Dimer >34.10 H (<0.60) mg/L FEU ABG pH (7.35-7.45) ABG pCO2 (35-45) mmHg ABG pO2 (83-108) mmHg ABG HCO3 (21-25) mmol/L ABG Total CO2 (19-24) mmol/L BUN 24 H (7-17) mg/dL Glucose 141 H (74-99) mg/dL POC Glucose (mg/dL) 236 H (75-99) mg/dL Phosphorus 2.0 L (2.5-4.5) mg/dL Magnesium (1.6-2.3) mg/dL AST (14-36) U/L ALT (4-34) U/L Alkaline Phosphatase (38-126) U/L Lactate Dehydrogenase (313-618) U/L C-Reactive Protein (<1.0) mg/dL Total Protein (6.3-8.2) g/dL Albumin (3.5-5.0) g/dL 06/18/20 06/18/20 06/18/20 Range/Units 08:36 09:33 11:12 WBC (3.8-10.6) k/uL Neutrophils # (1.3-7.7) k/uL Lymphocytes # (1.0-4.8) k/uL D-Dimer (<0.60) mg/L FEU ABG pH (7.35-7.45) ABG pCO2 (35-45) mmHg ABG pO2 (83-108) mmHg ABG HCO3 (21-25) mmol/L ABG Total CO2 (19-24) mmol/L BUN (7-17) mg/dL Glucose (74-99) mg/dL POC Glucose (mg/dL) 225 H 195 H 178 H (75-99) mg/dL Phosphorus (2.5-4.5) mg/dL Magnesium (1.6-2.3) mg/dL AST (14-36) U/L ALT (4-34) U/L Alkaline Phosphatase (38-126) U/L Lactate Dehydrogenase (313-618) U/L C-Reactive Protein (<1.0) mg/dL Total Protein (6.3-8.2) g/dL Albumin (3.5-5.0) g/dL 06/18/20 06/18/20 06/18/20 Range/Units 12:01 14:16 15:56 WBC (3.8-10.6) k/uL Neutrophils # (1.3-7.7) k/uL Lymphocytes # (1.0-4.8) k/uL D-Dimer (<0.60) mg/L FEU ABG pH 7.29 L (7.35-7.45) ABG pCO2 59 H (35-45) mmHg ABG pO2 (83-108) mmHg ABG HCO3 28 H (21-25) mmol/L ABG Total CO2 30 H (19-24) mmol/L BUN (7-17) mg/dL Glucose (74-99) mg/dL POC Glucose (mg/dL) 125 H 241 H (75-99) mg/dL Phosphorus (2.5-4.5) mg/dL Magnesium (1.6-2.3) mg/dL AST (14-36) U/L ALT (4-34) U/L Alkaline Phosphatase (38-126) U/L Lactate Dehydrogenase (313-618) U/L C-Reactive Protein (<1.0) mg/dL Total Protein (6.3-8.2) g/dL Albumin (3.5-5.0) g/dL 06/18/20 06/18/20 06/18/20 Range/Units 17:09 18:53 20:25 WBC (3.8-10.6) k/uL Neutrophils # (1.3-7.7) k/uL Lymphocytes # (1.0-4.8) k/uL D-Dimer (<0.60) mg/L FEU ABG pH (7.35-7.45) ABG pCO2 (35-45) mmHg ABG pO2 (83-108) mmHg ABG HCO3 (21-25) mmol/L ABG Total CO2 (19-24) mmol/L BUN (7-17) mg/dL Glucose (74-99) mg/dL POC Glucose (mg/dL) 167 H 133 H 165 H (75-99) mg/dL Phosphorus (2.5-4.5) mg/dL Magnesium (1.6-2.3) mg/dL AST (14-36) U/L ALT (4-34) U/L Alkaline Phosphatase (38-126) U/L Lactate Dehydrogenase (313-618) U/L C-Reactive Protein (<1.0) mg/dL Total Protein (6.3-8.2) g/dL Albumin (3.5-5.0) g/dL 06/18/20 06/18/20 06/18/20 Range/Units 21:10 22:08 22:49 WBC (3.8-10.6) k/uL Neutrophils # (1.3-7.7) k/uL Lymphocytes # (1.0-4.8) k/uL D-Dimer (<0.60) mg/L FEU ABG pH (7.35-7.45) ABG pCO2 (35-45) mmHg ABG pO2 (83-108) mmHg ABG HCO3 (21-25) mmol/L ABG Total CO2 (19-24) mmol/L BUN (7-17) mg/dL Glucose (74-99) mg/dL POC Glucose (mg/dL) 164 H 142 H 135 H (75-99) mg/dL Phosphorus (2.5-4.5) mg/dL Magnesium (1.6-2.3) mg/dL AST (14-36) U/L ALT (4-34) U/L Alkaline Phosphatase (38-126) U/L Lactate Dehydrogenase (313-618) U/L C-Reactive Protein (<1.0) mg/dL Total Protein (6.3-8.2) g/dL Albumin (3.5-5.0) g/dL 06/18/20 06/19/20 06/19/20 Range/Units 23:52 01:21 03:10 WBC (3.8-10.6) k/uL Neutrophils # (1.3-7.7) k/uL Lymphocytes # (1.0-4.8) k/uL D-Dimer (<0.60) mg/L FEU ABG pH (7.35-7.45) ABG pCO2 (35-45) mmHg ABG pO2 (83-108) mmHg ABG HCO3 (21-25) mmol/L ABG Total CO2 (19-24) mmol/L BUN (7-17) mg/dL Glucose (74-99) mg/dL POC Glucose (mg/dL) 128 H 157 H 137 H (75-99) mg/dL Phosphorus (2.5-4.5) mg/dL Magnesium (1.6-2.3) mg/dL AST (14-36) U/L ALT (4-34) U/L Alkaline Phosphatase (38-126) U/L Lactate Dehydrogenase (313-618) U/L C-Reactive Protein (<1.0) mg/dL Total Protein (6.3-8.2) g/dL Albumin (3.5-5.0) g/dL 06/19/20 06/19/20 06/19/20 Range/Units 04:02 04:04 04:04 WBC (3.8-10.6) k/uL Neutrophils # (1.3-7.7) k/uL Lymphocytes # (1.0-4.8) k/uL D-Dimer >35.20 H (<0.60) mg/L FEU ABG pH (7.35-7.45) ABG pCO2 (35-45) mmHg ABG pO2 (83-108) mmHg ABG HCO3 (21-25) mmol/L ABG Total CO2 (19-24) mmol/L BUN 35 H (7-17) mg/dL Glucose 183 H (74-99) mg/dL POC Glucose (mg/dL) 181 H (75-99) mg/dL Phosphorus (2.5-4.5) mg/dL Magnesium 2.4 H (1.6-2.3) mg/dL AST 138 H (14-36) U/L ALT 83 H (4-34) U/L Alkaline Phosphatase 129 H (38-126) U/L Lactate Dehydrogenase 2524 H (313-618) U/L C-Reactive Protein 3.4 H (<1.0) mg/dL Total Protein 5.7 L (6.3-8.2) g/dL Albumin 2.9 L (3.5-5.0) g/dL 06/19/20 06/19/20 06/19/20 Range/Units 04:04 04:08 05:15 WBC 16.0 H (3.8-10.6) k/uL Neutrophils # 14.4 H (1.3-7.7) k/uL Lymphocytes # 0.9 L (1.0-4.8) k/uL D-Dimer (<0.60) mg/L FEU ABG pH (7.35-7.45) ABG pCO2 47 H (35-45) mmHg ABG pO2 79 L (83-108) mmHg ABG HCO3 29 H (21-25) mmol/L ABG Total CO2 30 H (19-24) mmol/L BUN (7-17) mg/dL Glucose (74-99) mg/dL POC Glucose (mg/dL) 169 H (75-99) mg/dL Phosphorus (2.5-4.5) mg/dL Magnesium (1.6-2.3) mg/dL AST (14-36) U/L ALT (4-34) U/L Alkaline Phosphatase (38-126) U/L Lactate Dehydrogenase (313-618) U/L C-Reactive Protein (<1.0) mg/dL Total Protein (6.3-8.2) g/dL Albumin (3.5-5.0) g/dL 06/19/20 Range/Units 06:04 WBC (3.8-10.6) k/uL Neutrophils # (1.3-7.7) k/uL Lymphocytes # (1.0-4.8) k/uL D-Dimer (<0.60) mg/L FEU ABG pH (7.35-7.45) ABG pCO2 (35-45) mmHg ABG pO2 (83-108) mmHg ABG HCO3 (21-25) mmol/L ABG Total CO2 (19-24) mmol/L BUN (7-17) mg/dL Glucose (74-99) mg/dL POC Glucose (mg/dL) 167 H (75-99) mg/dL Phosphorus (2.5-4.5) mg/dL Magnesium (1.6-2.3) mg/dL AST (14-36) U/L ALT (4-34) U/L Alkaline Phosphatase (38-126) U/L Lactate Dehydrogenase (313-618) U/L C-Reactive Protein (<1.0) mg/dL Total Protein (6.3-8.2) g/dL Albumin (3.5-5.0) g/dL Assessment and Plan Plan: #1. Acute hypoxic respiratory failure related to acute COVID 19 pneumonia, with onset of symptoms 3 weeks ago, tested positive on 06/07/2020, was outside the window for BAM, was sent home on Decadron and vitamins. Returned for reevaluation worsening symptoms and worsening hypoxia. Patient was treated with a combination of Decadron and Tocilizumab. The patient also had Covid 19 related encephalopathy. The patient was on BiPAP for a few days and ultimately she failed and she had to be intubated and placed on a mechanical ventilator on 06/18/2020. On today's evaluation, the patient is an respiratory failure, sedated, paralyzed, on the volume cycled mechanical ventilator. Peak and static pressures are quite elevated and the patient has a very low PF ratio consistent with ARDS. The chest x-ray was noted. Blood gases was noted. Inflammatory markers continued to be significantly elevated. The patient remains on Decadron. Patient also received Tocilizumab #2. New onset atrial fibrillation with rapid ventricular response. Currently on amiodarone and Cardizem in combination both lymphoma strips for rate control. Continues to be tachycardic. #3. Troponin leak, we'll follow serial troponins, likely secondary to Covid 19 related infection #4. COVID-19 related encephalopathy currently sedated and paralyzed. Lumbar puncture was performed. #5. Aphasia at a time of the admission, rule out possibility of a stroke, neurology consultation has been requested, patient was not a candidate for TPA, recovered #6. Hypertension #7. Hyperlipidemia #8. Diabetes multiple's type II, currently on vital high protein and blood sugar control is on insulin drip at 6 units an hour, and the patient is also on Levemir 20 units on a daily basis. #12 hyperchloremic hypernatremia , and the sodium level has improved and is normal. Plan: Continue vent support for now. No vent changes this morning Keep the patient on sedation and switch her to Versed drip in combination with fentanyl. The triglycerides are quite elevated and propofol will be disco ntinued. I will suggest starting the Versed drip at 10 mg an hour as a start and will make further adjustments based on her level of sedation. Once the sedation is adequate, the patient should be given a paralytic holiday. Continue amiodarone loading currently at 1 mg per minute later on down to 0.5 mg per minute. Given additional bolus of Cardizem at 10 mg an increase the drip up to 50 mg an hour and start the patient on IV heparin Obtain an echocardiogram Stop the Lovenox subcu Increase the Levemir insulin up to 36 units and discontinue the insulin drip and utilized sliding scale blood sugar for coverage Morphine 2 mg IV push every 2-4 hours for agitation and restlessness as needed Treatment with Il-6 MAB, Tocilizumab, continue Decadron, Lovenox 40 mg daily, continue Pepcid, will follow her clinical course closely Patient is critically ill and will continue to follow make further re commendations based on her progress The patient will need intubation mechanical ventilation. Critically care evaluation for more than 30 minutes Time with Patient: Greater than 30
[2020-06-19] MEDS ORDERED: INSULIN ASPART (NovoLOG) 100 UNIT/ML VIAL SQ SCH (07:30)
[2020-06-19] MEDS ORDERED: ARTIFICIAL TEARS-HYPROMELLOSE DROPS 15 ML BTL BOTH EYES PRN (07:36)
[2020-06-19] MEDS: HEPARIN SOD,PORK IN 0.45% NACL 25,000 UNIT in 0.45% NACL 1 250ML.BAG IV SCH (08:22)
[2020-06-19 08:35] LABS: Glucose,Whole Blood 136 mg/dL (75-99)
[2020-06-19] MEDS: amLODIPine 5 MG TAB PO SCH (09:02)
[2020-06-19] MEDS: FUROSEMIDE 10 MG/ML 4 ML VIAL IV SCH (09:02)
[2020-06-19] MEDS: DEXAMETHASONE SOD PHOSPHATE 10 MG/ML 1 ML VIAL IV SCH (09:02)
[2020-06-19] MEDS: CHOLECALCIFEROL 25 MCG (1000 IU) TABLET PO SCH (09:02)
[2020-06-19] MEDS: FAMOTIDINE 20 MG/2 ML VIAL IV SCH ×2 (09:02→20:36)
[2020-06-19] MEDS: CHLORHEXIDINE GLUCONATE 15 ML CUP MUCOUS MEM SCH ×2 (09:02→20:36)
[2020-06-19] MEDS: ASCORBIC ACID 500 MG TAB PO SCH (09:02)
[2020-06-19] MEDS: SERTRALINE 50 MG TAB PO SCH (09:03)
[2020-06-19] MEDS: LISINOPRIL-HCTZ 20-25 MG 1 EACH TAB PO SCH (09:03)
[2020-06-19] MEDS: AMIODARONE 450 MG in DEXTROSE 5% IN WATER 250 ML IV SCH ×4 (09:15→23:51)
--- NOTE | 2020-06-19 09:27 | XR ---
EXAMINATION TYPE: XR chest 1V portable DATE OF EXAM: 06/19/2020 CLINICAL HISTORY: Difficulty breathing progress study. TECHNIQUE: Single AP portable semiupright view of the chest is obtained. COMPARISON: Chest x-ray from one day earlier and older studies FINDINGS: Stable endotracheal and orogastric tubes. Stable left-sided PICC line. Diffuse reticulonodular increased opacities bilaterally remain present. Cardiac silhouette size stabl e and within normal limits. Multilevel spurring in the spine redemonstrated. IMPRESSION: Bilateral diffuse reticulonodular opacities redemonstrated consistent with covid-19 infec tion. No significant change from one day earlier.
[2020-06-19 09:57] LABS: INR 1.1 (<1.2); Partial Thromboplastin Time 22.8 sec (22.0-30.0); Prothrombin Time 11.1 sec (9.0-12.0)
[2020-06-19] MEDS: MIDAZOLAM HCL 50 MG in SODIUM CHLORIDE 0.9% 40 ML IV SCH ×5 (10:10→22:29)
[2020-06-19 11:33] LABS: Glucose,Whole Blood 220 mg/dL (75-99)
[2020-06-19] MEDS: GABAPENTIN 300 MG CAP PO SCH ×2 (11:33→20:36)
[2020-06-19] MEDS: INSULIN ASPART (NovoLOG) 100 UNIT/ML VIAL SQ SCH ×4 (12:18→23:51)
--- NOTE | 2020-06-19 14:13 | ECHOF ---
Referral Reason:low BP, new onset a-fib MEASUREMENTS -------- HEIGHT: 165.1 cm WEIGHT: 85.7 kg BP: RVIDd: 3.7 cm (< 3.3) IVSd: 1.4 cm (0.6 - 1.1) LVIDd: 3.0 cm (3.9 - 5.3) LVPWd: 1.4 cm (0.6 - 1.1) IVSs: 1.2 cm LVIDs: 2.0 cm LVPWs: 1.7 cm RAP: 5.00 mmHg RVSP: 20.15 mmHg FINDINGS -------- Atrial fibrillation. TDS Study lumason used: Patient Covid positive. LV size, wall thickness and systolic function are normal, with an EF greater than 55%. The left shayla tricular size is normal. The right ventricle is mild to moderately enlarged. The left atrial size is normal. The right atrial size is normal. The aortic valve was not well visualized. Mild mitral annular calcification present. Mild mitral regurgitation is present. The tricuspid valve was not well visualized. Mild tricuspid regurgitation present. Right ventricu lar systolic pressure is normal at < 35 mmHg. The pulmonic valve was not well visualized. The aortic root size is normal. There is no pericardial effusion. CONCLUSIONS -------- 1. TDS Study lumason used: Patient Covid positive. 2. LV size, wall thickness and systolic function are normal, with an EF greater than 55%. 3. The right ventricle is mild to moderately enlarged. 4. The left atrial size is normal. 5. The aortic valve was not well visualized. 6. Mild mitral annular calcification present. 7. Mild tricuspid regurgitation present. MERCHANDISING MANAGER: Shara Ford RDCS
[2020-06-19] MEDS: ARTIFICIAL TEARS-HYPROMELLOSE DROPS 15 ML BTL BOTH EYES SCH ×3 (15:24→20:37)
[2020-06-19 16:52] LABS: Glucose,Whole Blood 285 mg/dL (75-99)
--- NOTE | 2020-06-19 17:31 | P.PN ---
Progress Note - Text Progress Note Date: 06/19/20 Chief Complaint: Short of breath History of presenting complaint: This is a 69-year-old patient who follows with Dr. blake . Patient was last seen in the ER about 5 days ago. She then had an having respiratory symptoms including cough for about 2 or 3 weeks prior to that. On this presentation is patient is altered sense. She was last seen normal at home on Sunday. EMS was called out and they found the patient to be hypoxic with 46%. Patient was ventilated with a bag valve and pulse oxygenation improved. He was placed on a nonrebreather and brought here. Here patient's problem of BiPAP. And is somewhat delirious. Not able to give any history. Patient chronic stable medical conditions include diabetes, hypertension, hyperlipidemia, history of breast cancer with right mastectomy. No family members currently present. Admitted with acute severe bilateral COVID 19 pneumonia, acute severe hypoxic respiratory failure, acute metabolic encephalopathy, with delirium. Patient placed on oxygen. Decadron. Lovenox. Consultation to neurology, pulmonary. Lumbar puncture/CSF unremarkable. Patient was placed on BiPAP. Progression of respiratory status patient intubated on June 18 Today-ICU: Ventilator FiO2 70 PEEP of 15. 2 feeding at 30. Drips include norepinephrine, fentanyl, we will fed IV heparin, amiodarone. . A. fib with rapid ventricular rate today Review of systems: Patient intubated Active Medications Acetaminophen (Acetaminophen Suppository 650 Mg Supp) 650 mg RECTAL Q4HR PRN PRN Reason: Fever And/ Or Mild Pain Last Admin: 06/13/20 21:46 Dose: 650 mg Documented by: Artificial Tears (Artificial Tears-Hypromellose Drops 15 Ml Btl) 2 drops BOTH EYES QID [facility] Last Admin: 06/19/20 15:24 Dose: 2 drops Documented by: Ascorbic Acid (Ascorbic Acid 500 Mg Tab) 1,000 mg PO DAILY [facility] Last Admin: 06/19/20 09:02 Dose: 1,000 mg Documented by: Atorvastatin Calcium (Atorvastatin 10 Mg Tab) 10 mg PO HS [facility] Last Admin: 06/18/20 20:49 Dose: 10 mg Documented by: Chlorhexidine Gluconate (Chlorhexidine Gluconate 15 Ml Cup) 15 ml MUCOUS MEM BID [facility] Last Admin: 06/19/20 09:02 Dose: 15 ml Documented by: Cholecalciferol (Cholecalciferol 25 Mcg (1000 Iu) Tablet) 25 mcg PO DAILY [facility] Last Admin: 06/19/20 09:02 Dose: 25 mcg Documented by: Dexamethasone Sodium Phosphate (Dexamethasone Sod Phosphate 10 Mg/Ml 1 Ml Vial) 6 mg IV DAILY [facility] Last Admin: 06/19/20 09:02 Dose: 6 mg Documented by: Famotidine (Famotidine 20 Mg/2 Ml Vial) 20 mg IV Q12HR DANITA Last Admin: 06/19/20 09:02 Dose: 20 mg Documented by: Gabapentin (Gabapentin 300 Mg Cap) 600 mg PO BID [facility] Last Admin: 06/19/20 11:33 Dose: Not Given Documented by: Heparin Sodium (Porcine) (Heparin Sodium 1,000 Un/Ml (10ml Vl)) 0 unit IV PER PROTOCOL PRN; Protocol PRN Reason: Low PTT Last Admin: 06/19/20 15:47 Dose: 2,125 unit Documented by: Cisatracurium Besylate 200 mg/ (Sodium Chloride) 200 mls @ 5.076 mls/hr IV .Q24H DANITA; Protocol Last Titration: 06/19/20 09:35 Dose: 0 mcg/kg/min, 0 mls/hr Documented by: Norepinephrine Bitartrate 4 mg (/ Sodium Chloride) 254 mls @ 16.116 mls/hr IV .[id number] DANITA; Protocol Last Titration: 06/19/20 15:28 Dose: 0.02 mcg/kg/min, 6.447 mls/hr Documented by: Amiodarone HCl 450 mg/ (Dextrose/Water) 250 mls @ 16.667 mls/hr IV .Q15H DANITA; Protocol Stop: 06/20/20 03:59 Last Admin: 06/19/20 09:15 Dose: 0.5 mg/min, 16.667 mls/hr Documented by: Diltiazem HCl 125 mg/ Sodium (Chloride) 125 mls @ 0 mls/hr IV .Q0M DANITA; Protocol Last Titration: 06/19/20 12:00 Dose: 0 mls/hr, 0 mls/hr Documented by: Midazolam HCl 50 mg/ Sodium (Chloride) 50 mls @ 10 mls/hr IV .Q5H DANITA; Protocol Last Admin: 06/19/20 13:11 Dose: 6 mg/hr, 6 mls/hr Documented by: Heparin Sodium/Sodium Chloride (25,000 unit/ Sodium Chloride) 250 mls @ 10 mls/hr IV .Q24H DANITA; Protocol Last Titration: 06/19/20 16:00 Dose: 13.614 units/kg/hr, 11.722 mls/hr Documented by: Fentanyl Citrate 1,000 mcg/ (Sodium Chloride) 100 mls @ 0 mls/hr IV .Q0M DANITA; Protocol Insulin Aspart (Insulin Aspart (Novolog) 100 Unit/Ml Vial) 0 unit SQ Q4H [facility]; Protocol Last Admin: 06/19/20 12:18 Dose: 3 unit Documented by: Insulin Detemir (Insulin Detemir (Levemir) 100 Unit/Ml Syr) 36 unit SQ DAILY@0700 [facility] Miscellaneous Information (Potassium Replacement Protocol 1 Each Misc) 1 each MISCELLANE DAILY PRN; Protocol PRN Reason: Per Protocol Miscellaneous Information (Magnesium Replacement Protocol 1 Each Misc) 1 each MISCELLANE DAILY PRN; Protocol PRN Reason: Per Protocol Morphine Sulfate (Morphine Sulfate 2 Mg/Ml Syringe) 2 mg IVP Q2H PRN PRN Reason: Moderate Pain Last Admin: 06/18/20 04:31 Dose: 2 mg Documented by: Naloxone HCl (Naloxone 0.4 Mg/Ml 1 Ml Vial) 0.2 mg IV Q2M PRN PRN Reason: Opioid Reversal Sertraline HCl (Sertraline 50 Mg Tab) 50 mg PO DAILY [facility] Last Admin: 06/19/20 09:03 Dose: 50 mg Documented by: Sodium Chloride (Sodium Chloride 0.9% Flush 10 Ml Syringe) 10 ml IV Q4HR PRN PRN Reason: PICC Line Sodium Chloride (Sodium Chloride 0.9% Flush 10 Ml Syringe) 10 ml IV WEEKLY [facility] Sodium Chloride (Sodium Chloride 0.9% Flush 10 Ml Syringe) 20 ml IV Q4HR PRN PRN Reason: PICC Line Past medical history to include: Breast cancer with mastectomy, diabetes, hypertension, hyperlipidemia, anxiety Social history: Former smoker. Lives alone. Family history: Patient cannot tell Physical examination: VITAL SIGNS: 98.8, 99, 28, 106/55, 96% on the ventilator GENERAL: Sedated, intubated LUNGS:[ Respiratory rate increased,. PSYCH: Unable to assess. Rest of the exam per pulmonary and nursing INVESTIGATIONS, reviewed in the clinical context: June 19: WBC 16 hemoglobin 12.5 platelets 215 potassium 4.6 creatinine 0.75 CRP 3.4 LDH 2524 d-dimer greater than 35 June 18: WBC 14 hemoglobin 13.3 potassium 3.5 creatinine 0.74 LDH 3728 CRP 29.9 d-dimer more than 34 June 17: D-dimer more than 34 LDH 3399, CRP 22 June 16: WBC 8.4 hemoglobin 11.5 platelets 334 d-dimer greater than 34 potassium 3.5 creatinine 0.74 LDH 3339 CRP 41.5 sodium 145 June 15: WBC 9.1 hemoglobin 11.6 sodium 151 potassium 3.4 creatinine 0.86 June 14: WBC 6.6 hemoglobin 12.5 platelets 370 sodium 154 potassium 4.3 creatinine 0.94 June 13: D-dimer 2.13 ABG pH 7.39 pCO2 45 pO2 68 CRP 356 troponin I 0.190 WBC 7.3 hemoglobin 11.8 platelets 357 ABG: PH 7.45 pCO2 32, pO2 79 Potassium 3.9 creatinine 1.0 blood glucose 321 Troponin I 0.104 CRP 334 EKG tracing personally reviewed by me-normal sinus rhythm, nonspecific ST segment changes Chest x-ray film personally reviewed by me-bilateral infiltrate severe CT angio chest: Bilateral diffuse patchy groundglass opacities and consol idation. CTA head and neck: Negative Computed tomography scan of the brain: Negative Assessment and plan: -Acute severe bilateral COVID 19 pneumonia, diagnosed 5 days before admission, with symptoms present 2-3 weeks prior to that.-Not improving on IV dexamethasone, subcu Lovenox, vitamin C vitamin D Pepcid zinc. ACTEMRA -Acute severe hypoxic respiratory failure, secondary to COVID 19 slow to respond Initially BiPAP-100%. Intubated June 18. On ventilator with FiO2 70% -Septic shock On norepinephrine/levo fed -Acute delirium and acute metabolic encephalopathy from COVID 19 pneumonia Follow closely. -Diabetes mellitus type 2 on oral hypoglycemic, uncontrolled with hyperglycemia secondary to steroids Hold off oral hypoglycemic. On insulin drip- -Essential hypertension Not able to tolerate oral medications. Catapres patch 0.2 -Diabetic peripheral neuropathy Resume gabapentin when able to tolerate by mouth -Hyperlipidemia Resume Mevacor unable to tolerate by mouth -Patient underwent lumbar puncture. CSF benign. -Significant hypernatremia with hyperchloremia.-Corrected Cutback D5.45 -New onset of atrial fibrillation with rapid ventricle rate On IV amiodarone. Cardizem Prognosis remains guarded. Continue current medications.
[2020-06-19] MEDS ORDERED: INSULIN ASPART (NovoLOG) 100 UNIT/ML VIAL SQ ONE (17:46)
[2020-06-19] MEDS: fentaNYL (PF). 1,000 MCG in SODIUM CHLORIDE 0.9% 80 ML IV SCH (18:36)
[2020-06-19] MEDS: ATORVASTATIN 10 MG TAB PO SCH (20:36)
[2020-06-19 20:38] LABS: Glucose,Whole Blood 265 mg/dL (75-99)
[2020-06-19 23:42] LABS: Glucose,Whole Blood 241 mg/dL (75-99)
[2020-06-20] MEDS: MIDAZOLAM HCL 50 MG in SODIUM CHLORIDE 0.9% 40 ML IV SCH ×4 (02:51→20:29)
[2020-06-20 04:13] LABS: Glucose,Whole Blood 248 mg/dL (75-99)
[2020-06-20 04:49] LABS: Basophils % (A) 0 %; Eosinophils # (A) 0.1 k/uL (0-0.7); Eosinophils % (A) 1 %; HCT 32.5 % (34.0-46.0); HGB 10.8 gm/dL (11.4-16.0); Hypochromasia Slight; Lymphocytes # (A) 0.7 k/uL (1.0-4.8); Lymphocytes % (A) 6 %; MCHC 33.1 g/dL (31.0-37.0); MCV 93.6 fL (80.0-100.0); Mean Platelet Volume 9.7; Monocytes # (A) 0.2 k/uL (0-1.0); Monocytes % (A) 2 %; Neutrophils # (A) 10.1 k/uL (1.3-7.7); Neutrophils % (A) 91 %; Platelet Count 189 k/uL (150-450); RBC 3.47 m/uL (3.80-5.40); RDW 14.2 % (11.5-15.5); WBC 11.1 k/uL (3.8-10.6)
[2020-06-20] MEDS: INSULIN ASPART (NovoLOG) 100 UNIT/ML VIAL SQ SCH ×10 (04:49→23:41)
[2020-06-20] MEDS: fentaNYL (PF). 1,000 MCG in SODIUM CHLORIDE 0.9% 80 ML IV SCH ×2 (04:49→16:45)
[2020-06-20] MEDS: HEPARIN SOD,PORK IN 0.45% NACL 25,000 UNIT in 0.45% NACL 1 250ML.BAG IV SCH (04:51)
[2020-06-20 05:28] LABS: D-Dimer 10.39 mg/L FEU (<0.60); INR 1.1 (<1.2); Partial Thromboplastin Time 48.4 sec (22.0-30.0); Prothrombin Time 11.4 sec (9.0-12.0)
[2020-06-20 05:38] LABS: ABG Base Excess 5.4 mmol/L; ABG HCO3 30 mmol/L (21-25); ABG Oxygen Saturation 91.5 % (94-97); ABG PCO2 50 mmHg (35-45); ABG PH 7.39 (7.35-7.45); ABG PO2 64 mmHg (83-108); ABG TCO2 32 mmol/L (19-24); Allen Test Performed? Yes
--- NOTE | 2020-06-20 05:56 | XR ---
EXAMINATION TYPE: XR chest 1V portable DATE OF EXAM: 06/20/2020 CLINICAL HISTORY: Difficulty breathing progress study. TECHNIQUE: Single AP portable upright view of the chest is obtained. COMPARISON: Chest x-ray from one day earlier FINDINGS: Stable endotracheal and orogastric tubes. Stable left-sided PICC line. Diffuse reticulonodular increased opacities bilaterally remain present. Slightly more confluent opaci ties right hilar region and left basilar regions noted from one day earlier. Cardiac silhouette size stable and within normal limits. Multilevel spurring in the mid to lower thoracic spine redemonstrate d. IMPRESSION: Bilateral diffuse reticulonodular opacities redemonstrated with slightly more confluent a ppearance right hilar and left basilar level consistent with covid-19 infection are redemonstrated. S light interval worsening from one day earlier.
[2020-06-20 06:39] LABS: ALT 59 U/L (4-34); AST 70 U/L (14-36); African American GFR (CKD) >90 (>60 ml/min/1.73 sqM); Albumin 2.6 g/dL (3.5-5.0); Alkaline Phosphatase 110 U/L (38-126); Anion Gap 3 mmol/L; Blood Urea Nitrogen 41 mg/dL (7-17); Calcium 8.5 mg/dL (8.4-10.2); Carbon Dioxide 30 mmol/L (22-30); Chloride 108 mmol/L (98-107); Glucose 250 mg/dL (74-99); Non-African American GFR(CKD) 79 (>60 ml/min/1.73 sqM); Potassium 4.6 mmol/L (3.5-5.1); Sodium 141 mmol/L (137-145); Total Bilirubin 0.5 mg/dL (0.2-1.3); Total Protein 5.3 g/dL (6.3-8.2)
[2020-06-20 06:48] LABS: LDH 2253 U/L (313-618)
[2020-06-20 06:55] LABS: Glucose,Whole Blood 246 mg/dL (75-99)
[2020-06-20] MEDS ORDERED: INSULIN DETEMIR (LEVEMIR) 100 UNIT/ML SYR SQ SCH (07:00)
--- NOTE | 2020-06-20 07:30 | P.PN ---
Subjective Progress Note Date: 06/20/20 69-year-old white female patient who presented to the emergency department on 06/12/2020 at 1400 in the afternoon with complaints of shortness of breath, and her first onset of symptoms was approximately 2-3 weeks ago. She tested positive for COVID 19 on 06/07/2020. Patient was seen in the emergency department at that time, and was having symptoms of fatigue, shortness of breath and cough. She does have multiple comorbidities including hypertension, diabetes mellitus, dyslipidemia, history of breast cancer, patient is a former smoker. Was outside the window for monoclonal antibody, she was sent home on Decadron, and vitamins. Chest x-ray at that time showed interstitial infiltrates. Patient returned with worsening symptoms, chest x-ray on the 2020 showed interval bilateral diffuse infiltrates. In addition patient was confused, on arrival of the EMS to the scene patient was severely hypoxemic with a pulse ox of only 46%. She was bagged valve ventilated with improvement in her oxygen, she was placed on BiPAP support. Brain CT showed no acute intracranial abnormality. Angiography CT showed no acute abnormality of the head/neck, and a moderate stenosis of the right proximal ICA. CBC was positive for lymphopenia with lymphocyte count 0.6, d-dimer was 1.36, sodium is 143, potassium is 3.9, chloride is 108, CO2 22, BUN is 50, creatinine is 1, glucose level was 321, plasma lactic acid is 1.3, AST was 84, ALT was 31, alk phos was 50, troponin was 0.104, CRP was 334. Patient was started on IV Decadron in the emergency department, she remains on BiPAP support, currently at pressures of 12 and 6 and FiO2 100%, she appears to have increased work of breathing, she is not able to answer questions related to dyspnea, repeat blood gas was done showing pO2 of 68, pCO2 45, pH of 7.39 and subsequently her BiPAP settings were adjusted to 14/7 and FiO2 100%, patient is awaiting a bed in the intensive care unit, she is awake and alert, she did answer some simple questions yes or no for me while on BiPAP support, we'll start the patient on IL-6 MAB, Tocilizumab. We'll continue to closely follow her clinical course, continues to deteriorate patient required intubation and placement on mechanical ventilatory supp On today's evaluation of 06/14/2020 the patient is being seen for a follow-up regarding acute hypoxic respiratory failure and COVID 19 pneumonia. The patient was status post positive on 06/07/2020 and the patient was symptomatic prior to that. The patient presented with hypoxic respiratory failure and the patient was placed on a BiPAP which is currently at the pressure of 14/7 cm of water and FiO2 of 900%. Chest x-ray showing bilateral patchy by troponin infiltrates consistent with pneumonia. The patient was started on steroids and Tocilizumab was ordered. The patient is having increased shortness of breath even while on the BiPAP. The patient is quite dyspneic even while on the BiPAP and is unable to complete full sentences. Blood gases from yesterday was noted. CT angiogram of the head and neck showed moderate stenosis of the right proximal ICA. CAT scan of the brain was negative., CRP of 356, troponin was 0.19 and the patient's d-dimer was 2.13. The patient is currently on Decadron 6 mg IV every 24 hours. The patient is on Lovenox 40 mg subcu every 24 hours. The patient on Levemir insulin 20 units daily at bedtime that was started yesterday the patient will be taken off the insulin drip. Currently the patient is also on various hypertensive medications including Zestoretic and Kl clonidine patch and Norvasc. neurologically, the patient is still quite somnolent. She is moving all 4 extremities. No neck stiffness. This encephalopathy is probably related to Covid 19 infection. Neuro is also on the case. His blood work, the sodium level is at 154 with a BUN of 61 and creatinine of 0.9. The patient on IV fluid and currently receiving 0.9 at the rate of 100 mL an hour. On 06/15/2020, the patient is being seen in follow-up in the intensive care unit. This is a case of 69-year-old female patient with Covid associated pneumonia. The patient remains in the emergency department awaiting her bed in the ICU. Currently she is on a BiPAP at a pressure of 14/7 cm of water with an FiO2 of 100%. The patient is quite synchronous and tolerated the BiPAP treatment. Her current tidal volume generated is around 840 mL with a respiratory rate of 29 and a minute ventilation of 23. Chest x-ray from today has not been done and this is supposed to be repeated. The chest x-ray from y was showing diffuse bilaterally pulmonary infiltrates more so in the left perihilar area. No new blood gases. D-dimer is today at 34 and the CRP level is at 67. LDH is still pending for now. Neurologically, the patient is still lethargic and somnolent and encephalopathic. She is on Precedex running at 0.5 mcg/kg per minute. Lumbar puncture was done yesterday and the patient was found to have a CSF RBC of 7, nucleated cells were only a 2, glucose was 79 and the protein was slightly elevated at 66. This is not consistent with bacterial meningitis. It may be consistent with viral encephalopathy. Gram stain of the CSF was negative. Cultures are also negative. I would say clin ically she is essentially unchanged. She is more comfortable while being on Precedex. She is hemodynamically stable and she is afebrile. She is still receiving IV fluids in the form of D5 half-normal saline at the rate of 1 25 mL an hour. She is currently off the insulin drip. Her blood sugar is at 128 and the patient is on Levemir insulin 20 units daily at bedtime along with a sliding scale coverage. The patient's renal function currently is stable with a BUN of 63 and a creatinine of 0.8. Sodium level was improving and his sodium level was on the decline it was already down to 151. 06/16/2020, the patient remains on a BiPAP in the emergency department a pressure of 14/7 and FiO2 is currently at 80% and her current pulse ox is around 96%. Her generated tidal volume is around 816 with a respiratory rate of 30 and a minute volume of 25 L per minute. I took her off the Precedex yesterday the patient was quite lethargic. This morning, she is more arousable. She is extremely weak. She is following some simple commands. She is wiggling her toes and moving her arms upon demand. She cannot hold a conversation as the patient is very much BiPAP dependent at this point in time. She easily desaturates once she is off the BiPAP. She is hemodynamically stable for now. The chest x-ray showing bilateral pulmonary infiltrates, slightly improved compared to yesterday. In terms of her blood work, the patient's blood sugars at 250. She is currently on D5 half-normal saline at the rate of 150 mL an hour. Her sodium level is improved and is down to 145 and a BUN is 36 with a creatinine of 0.7. Her CRP is down to 41. Her LDH level is up to 3339. Rest of the blood work and electrodes are all within normal limits and as mentioned the sodium level is improved and is down to 145. Her lumbar puncture was done and the findings are essentially related to Covid 19 encephalopathy. Case was discussed with neurology. As for the blood sugars, the patient's blood sugars are running in the mid 200s and the patient is on a sliding scale coverage. No major edema in lower extremities. Cardiac rhythm is sinus for now. 06/17/2020, the patient is being seen in follow-up. Unfortunately, she has remained in the emergency and she hasn't been able to find her way up to the ICU. I have her today on a BiPAP at a pressure of 16/8 cm of water with an FiO2 of 100%. The patient was doing well throughout the night and earlier this morning she became significantly more short of breath, hypoxic and tachycardic. Currently she is struggling with her breathing. She is using excessive muscle breathing even while being on a BiPAP. She is able to generate adequate tidal volumes of around 800 mL and her respiratory rate is in the mid 40s. She is tachycardic with a heart rate of 150, sinus. She is unable to speak. She is anxious. She was given a total of 4 mg of morphine which helped her with the breathlessness and shortness of breath. She is awake and arousable and she is moving all 4 extremities. As mentioned earlier, she is a case of COVID-19 related pneumonia. The patient was treated with a combination of treatment and the patient was given Decadron 6 mg IV every 24 hours. The patient also received Tocilizumab 50 mg IV on 06/13/2020. She was having some degree of encephalopathy that was thought to be a viral encephalopathy in the lumbar puncture was done and it showed some mild elevation of the protein. Otherwise negative. Repeat chest x-ray from today has not been completed. This is in progress. Cardiac rhythm is sinus. The patient is likely headed to intubation/mechanical ventilation. 06/18/2020, the patient is currently in the intensive care unit. She seems much more comfortable while being on Precedex is running at 0.7 mcg/kg per minute. She is very evasive ventilator and the patient is currently on a pressure of 16/8 with an FiO2 of 100%. She was struggling with her breathing yesterday and she seems to be essentially the same as yesterday without any interval improvement.. Her current respiratory rate is in the order of mid 30s and she is able to generate adequate amount of tidal volume. She is unresponsive. She is on Precedex. Her breathing is unlabored. She is using accessory muscles of breathing. She has less tachycardic to yesterday. She seems to be also less anxious. She is taking morphine on an as-needed basis for shortness of breath and anxiety. On today's blood gas, pH is 7.48 with a pCO2 of 36 and pO2 of 51. Her current pulse ox is 91%. She remains on Decadron 6 mg IV every 24 hours. The patient also received Tocilizumab 720 mg iv. The patient remains also on anticoagulation on Lovenox 45 mg subcu she will 12 hours. In terms of the inflammatory markers, the patient has a d-dimer of above 34, and the patient has a LDH level of 3728 and the patient is a CRP of 29. The inflammatory markers continued to be quite elevated and essentially unchanged compared to yesterday. She is afebrile for now and she is hemodynamically stable on no pressors. She is receiving nutrition via TPN and the patient is decline in her left upper extremity. CSF cultures have been negative. No neck stiffness. Neurology is also on the case and the working diagnosis is COVID-19 related encephalopathy. 06/19/2020 on seeing the patient in the intensive care unit. Noted the patient was brought in to the ICU yesterday and she became progressively more confused, tachypneic, tachycardic and hypoxic and she was failing also BiPAP which she was able to tolerate for a few days. At that point, the decision was to intubate the patient placed on mechanical ventilator. Following intubation, the patient was placed on sedation with propofol and currently propofol is running at 40 mg/kg/m. She also had to be paralyzed and the patient is currently on Nimbex running at 2 mcg/kg per minute. She was taken off the Precedex. For now, she is well sedated and paralyzed on a mechanical ventilator and she is currently on assist control mode rate of 28 with a tidal volume of 400 and FiO2 of 70% with a PEEP of 15. At peak airway pressure on the mechanical ventilator is 33. Static pressure is 31. No orotracheal secretions. The chest x-ray from today showing adequate positioning of the orotracheal tube. The patient also has a orogastric tube in place. The patient had diffuse breath and pulmonary infiltrates consistent with COVID-19 related pneumonia/ARDS. Her d-dimer was elevated at 35 and the patient was receiving 45 mg of subcu Lovenox every 12 hours. LDH from today is 2544 and a CRP level is at 3.4 and both are elevated. Most recent blood gases from this morning shows a pH of 7.39 with a pCO2 of 47 and pO2 of 79. The patient remains on steroids and she is receiving Decadron 6 g IV every 24 hours. Earlier during the shift, the patient became hypotensive and she had to be placed on pressors and the patient is currently on norepinephrine infusion running at 0.06 mcg/kg per minute. Earlier this morning at around 3:15 AM, the patient also went into new onset atrial fibrillation with rapid ventricular response. She was given amiodarone bolus 150 mg IV and following that she was given a amiodarone at 1 mg per minute for loading protocol. There was no impact on her heart rate. The patient was also given Cardizem, bolus initially at a dose of 5 mg IV and following that started on a maintenance of 10 mg an hour. She is currently still having atrial fibrillation and her he art rate is in the 130 to 140 range. Blood pressure is soft and the patient is stranding thousand becoming hypotensive. Urine output is order of early cc an hour. IV fluids are running at 20 mL an hour and the patient is on enteral feeding for nutritional support in the form of vital high protein at the rate of 20 mL an hour and the goal is at 38. In terms of her CSF cultures, if very much came back negative. The patient had over the encephalopathy prior to her getting intubated. The triglyceride at baseline prior to her initiation of propofol infusion was 594. I am inclined to switching this patient alternatives sedation. She was on Precedex however this was not effective in combination with fentanyl. I will consider adding Versed infusion. 06/20/2020, the patient is intubated on a mechanical ventilator and she is currently in the intensive care unit. After being on a BiPAP for several days, the patient decompensated. She presented to us with COVID-19 related pneumonia and encephalopathy. She was on Precedex and BiPAP for extended period of time and ultimately she failed and she was intubated and placed on a mechanical ventilator. Propofol was discontinued as the patient was having an elevated triglyceride level and the patient is currently on Versed running at 5 mg an hour and fentanyl running at 1 mcg/kg per minute. The patient is currently off paralytics. He was discontinued yesterday. In terms of treatment, the patient remains on assist control mode of mechanical ventilation. She is on a tidal volume of 400 with an FiO2 of 70% and a PEEP is at 15 with a respiratory rate of 28 and this is volume cycle assist-control mode. The blood gas showed a pH of 7.39 with a pCO2 50 and pO2 of 64. The chest x-ray from today is showing diffuse interstitial infiltrates bilaterally. Overall findings are essentially unchanged compared to yesterday. Orotracheal tube remains in a good location. The peak anesthetic pressures are 31 and 30 respectively. The patient's lightheadedness a mechanical ventilator and she is currently off paralytics. Meanwhile, at LDH level is at 2253 which is comparable to yesterday and his CRP level from yesterday was at 3.4. Her d-dimer level is at 10.3. She did have a bout of atrial fibrillation yesterday with rapid ventricular response. She was treated with a combination of amiodarone drip and a Cardizem drip. Cardizem drip has been discontinued. Amiodarone drip is running at 0.5 mg per minute and the patient's cardiac rhythm is back in 2 sinus tachycardia and she converted back to sinus yesterday morning. The patient is also on IV heparin infusion. Recommendations are to discontinue the amiodarone for now and keep the IV heparin for another 24 hours. In terms of hemodynamics, the patient has been of f pressors since yesterday. She was running only a low dose of norepinephrine infusion. Currently is on IV fluids running at the rate of 20 mL an hour and the net fluid balance has been +1.6 L since yesterday. Remains on Decadron 6 mg IV every 24 hours. Remains on IV heparin for now. Levemir insulin 36 units for blood sugar control along with NovoLog Scale coverage. Blood sugars continued to be quite elevated. NovoLog 10 units 4 times a day will be also added in combination with sliding scale coverage. Objective - Vital Signs Vital signs: Vital Signs Temp 99.9 F H 06/20/20 04:00 Pulse 100 06/20/20 05:00 Resp 32 H 06/20/20 05:00 BP 124/66 06/20/20 05:00 Pulse Ox 92 L 06/20/20 05:00 Intake & Output 06/19/20 06/20/20 06/20/20 18:59 06:59 18:59 Intake Total 4767.758 7079.132 Output Total 555 545 Balance 972.359 627.132 Weight 88 kg Intake: IV 770 220 0.9 770 220 Intake, IV Titration 457.359 569.132 Amount Amiodarone 450 mg In 243.338 Dextrose 5% in Water 250 ml @ 0.5 MG/MIN 16.667 mls/hr IV .Q15H [facility] Rx#: [id number] Cisatracurium 200 mg In 34.855 Sodium Chloride 0.9% 180 ml @ 1 MCG/KG/MIN 5.076 mls/hr IV .Q24H [facility] Rx#: [id number] Diltiazem 125 mg In 68.5 Sodium Chloride 0.9% 100 ml @ Per Protocol IV .Q0M [facility] Rx#:[id number] Heparin Sod,Pork in 0.45% 76.333 150.628 NaCl 25,000 unit In 0.45 % NaCl 1 250ml.bag @ 11. 614 UNITS/KG/HR 10 mls/hr IV .Q24H [facility] Rx#: [id number] Midazolam HCl 50 mg In 27.251 87.2 Sodium Chloride 0.9% 40 ml @ 10 MG/HR 10 mls/hr IV .Q5H [facility] Rx#:[id number] Norepinephrine 4 mg In 150.420 Sodium Chloride 0.9% 250 ml @ 0.05 MCG/KG/MIN 16. 116 mls/hr IV .[id number] [facility] Rx#:[id number] fentaNYL (PF). 1,000 mcg 87.966 In Sodium Chloride 0.9% 80 ml @ Per Protocol IV . Q0M [facility] Rx#:[id number] propofoL 1,000 mg In 100 Empty Bag 1 bag @ Titrate IV .Q0M [facility] Rx#: [id number] Tube Feeding 270 353 Other 30 30 Output: Urine 555 545 Other: Voiding Method Indwelling Catheter Indwelling Catheter ABP, PAP, CO, CI - Last Documented Arterial Blood Pressure 109/54 - Exam GENERAL EXAM:69-year-old white female on combination of propofol and Pneumovax for sedation paralysis. Currently intubated on a mechanical ventilator. Well sedated, the patient is off paralytics for now. HEAD: Normocephalic/atraumatic. EYES: Normal reaction of pupils, equal size. Conjunctiva pink, sclera white. NOSE: Clear with pink turbinates. THROAT: No erythema or exudates. NECK: No masses, no JVD, no thyroid enlargement, no adenopathy. CHEST: No chest wall deformity. Symmetrical expansion. Asynchronous, tachypneic, using accessory muscle breathing LUNGS: Equal air entry with diffuse crackles CVS: Regular rate and rhythm, normal S1 and S2, no gallops, no murmurs, no rubs ABDOMEN: Soft, nontender. No hepatosplenomegaly, normal bowel sounds, no guarding or rigidity. EXTREMITIES: No clubbing, no edema, no cyanosis, 2+ pulses and upper and lower extremities. MUSCULOSKELETAL: Muscle strength and tone normal. SPINE: No scoliosis or deformity SKIN: No rashes CENTRAL NERVOUS SYSTEM: The patient is sedated and not paralyzed. She will grimace to deep painful stimulation. Pupils are equal and reactive to light. She is quite successful mechanical ventilator. - Labs CBC & Chem 7: 06/20/20 04:00 06/20/20 04:00 Labs: Abnormal Lab Results - Last 24 Hours (Table) 06/19/20 06/19/20 06/19/20 Range/Units 08:32 11:31 15:03 WBC (3.8-10.6) k/uL RBC (3.80-5.40) m/uL Hgb (11.4-16.0) gm/dL Hct (34.0-46.0) % Neutrophils # (1.3-7.7) k/uL Lymphocytes # (1.0-4.8) k/uL APTT 37.0 H (22.0-30.0) sec D-Dimer (<0.60) mg/L FEU ABG pCO2 (35-45) mmHg ABG pO2 (83-108) mmHg ABG HCO3 (21-25) mmol/L ABG Total CO2 (19-24) mmol/L ABG O2 Saturation (94-97) % Chloride (98-107) mmol/L BUN (7-17) mg/dL Glucose (74-99) mg/dL POC Glucose (mg/dL) 136 H 220 H (75-99) mg/dL AST (14-36) U/L ALT (4-34) U/L Lactate Dehydrogenase (313-618) U/L Total Protein (6.3-8.2) g/dL Albumin (3.5-5.0) g/dL 06/19/20 06/19/20 06/19/20 Range/Units 16:49 20:37 21:55 WBC (3.8-10.6) k/uL RBC (3.80-5.40) m/uL Hgb (11.4-16.0) gm/dL Hct (34.0-46.0) % Neutrophils # (1.3-7.7) k/uL Lymphocytes # (1.0-4.8) k/uL APTT 47.7 H (22.0-30.0) sec D-Dimer (<0.60) mg/L FEU ABG pCO2 (35-45) mmHg ABG pO2 (83-108) mmHg ABG HCO3 (21-25) mmol/L ABG Total CO2 (19-24) mmol/L ABG O2 Saturation (94-97) % Chloride (98-107) mmol/L BUN (7-17) mg/dL Glucose (74-99) mg/dL POC Glucose (mg/dL) 285 H 265 H (75-99) mg/dL AST (14-36) U/L ALT (4-34) U/L Lactate Dehydrogenase (313-618) U/L Total Protein (6.3-8.2) g/dL Albumin (3.5-5.0) g/dL 06/19/20 06/20/20 06/20/20 Range/Units 23:39 04:00 04:00 WBC 11.1 H (3.8-10.6) k/uL RBC 3.47 L (3.80-5.40) m/uL Hgb 10.8 L (11.4-16.0) gm/dL Hct 32.5 L (34.0-46.0) % Neutrophils # 10.1 H (1.3-7.7) k/uL Lymphocytes # 0.7 L (1.0-4.8) k/uL APTT 48.4 H (22.0-30.0) sec D-Dimer 10.39 H (<0.60) mg/L FEU ABG pCO2 (35-45) mmHg ABG pO2 (83-108) mmHg ABG HCO3 (21-25) mmol/L ABG Total CO2 (19-24) mmol/L ABG O2 Saturation (94-97) % Chloride (98-107) mmol/L BUN (7-17) mg/dL Glucose (74-99) mg/dL POC Glucose (mg/dL) 241 H (75-99) mg/dL AST (14-36) U/L ALT (4-34) U/L Lactate Dehydrogenase (313-618) U/L Total Protein (6.3-8.2) g/dL Albumin (3.5-5.0) g/dL 06/20/20 06/20/20 06/20/20 Range/Units 04:00 04:11 05:35 WBC (3.8-10.6) k/uL RBC (3.80-5.40) m/uL Hgb (11.4-16.0) gm/dL Hct (34.0-46.0) % Neutrophils # (1.3-7.7) k/uL Lymphocytes # (1.0-4.8) k/uL APTT (22.0-30.0) sec D-Dimer (<0.60) mg/L FEU ABG pCO2 50 H (35-45) mmHg ABG pO2 64 L (83-108) mmHg ABG HCO3 30 H (21-25) mmol/L ABG Total CO2 32 H (19-24) mmol/L ABG O2 Saturation 91.5 L (94-97) % Chloride 108 H (98-107) mmol/L BUN 41 H (7-17) mg/dL Glucose 250 H (74-99) mg/dL POC Glucose (mg/dL) 248 H (75-99) mg/dL AST 70 H (14-36) U/L ALT 59 H (4-34) U/L Lactate Dehydrogenase 2253 H (313-618) U/L Total Protein 5.3 L (6.3-8.2) g/dL Albumin 2.6 L (3.5-5.0) g/dL 06/20/20 Range/Units 06:54 WBC (3.8-10.6) k/uL RBC (3.80-5.40) m/uL Hgb (11.4-16.0) gm/dL Hct (34.0-46.0) % Neutrophils # (1.3-7.7) k/uL Lymphocytes # (1.0-4.8) k/uL APTT (22.0-30.0) sec D-Dimer (<0.60) mg/L FEU ABG pCO2 (35-45) mmHg ABG pO2 (83-108) mmHg ABG HCO3 (21-25) mmol/L ABG Total CO2 (19-24) mmol/L ABG O2 Saturation (94-97) % Chloride (98-107) mmol/L BUN (7-17) mg/dL Glucose (74-99) mg/dL POC Glucose (mg/dL) 246 H (75-99) mg/dL AST (14-36) U/L ALT (4-34) U/L Lactate Dehydrogenase (313-618) U/L Total Protein (6.3-8.2) g/dL Albumin (3.5-5.0) g/dL Assessment and Plan Plan: #1. Acute hypoxic respiratory failure related to acute COVID 19 pneumonia, with onset of symptoms 3 weeks ago, tested positive on 06/07/2020, was outside the window for BAM, was sent home on Decadron and vitamins. Returned for reevaluation worsening symptoms and worsening hypoxia. Patient was treated with a combination of Decadron and Tocilizumab. The patient also had Covid 19 related encephalopathy. The patient was on BiPAP for a few days and ultimately she failed and she had to be intubated and placed on a mechanical ventilator on 06/18/2020. On today's evaluation, the patient remains intubated on a mechanical ventilator. She is sedated but not paralyzed patient is on a combination of Versed and fentanyl. The peak and static static pressures monitored metabolic moderately elevated and the patient remains on a PEEP of 15 with an FiO2 of 70%. Chest x-ray findings are unchanged. Hemodynamically stable. Back into normal sinus rhythm. The patient is currently on Decadron. #2. New onset atrial fibrillation with rapid ventricular response, converted to normal sinus rhythm and the patient is currently on amiodarone and IV heparin. The echocardiogram is within normal limits with a normal LV function. #3. Troponin leak, we'll follow serial troponins, likely secondary to Covid 19 related infection #4. COVID-19 related encephalopathy currently sedated and paralyzed. Lumbar puncture was performed. #5. Aphasia at a time of the admission, rule out possibility of a stroke, neurology consultation has been requested, patient was not a candidate for TPA, recovered #6. Hypertension #7. Hyperlipidemia #8. Diabetes multiple's type II, currently on vital high protein and blood sugar control is on on Levemir 36 units on a daily basis. #9 hyperchloremic hypernatremia , and the sodium level has improved and is normal. #10 hypertriglyceridemia Plan: Continue vent support for now. No vent changes this morning The patient's will be kept on a combination of Versed and fentanyl and she is on no paralytics for now The patient's will be taken off the amiodarone drip Continue IV heparin for another 24 hours Recheck inflammatory markers and d-dimer was and decide on the antibiotic regulations dose accordingly. Note that the patient is back into normal sinus rhythm. Cardizem drip has been discontinued. Echocardiogram essentially within normal limits. Continue Levemir insulin 36 units along with NovoLog 10 units 4 times a day plus a sliding scale coverage. Treatment with Il-6 MAB, Tocilizumab, continue Decadron, continue Pepcid\ Continue Decadron at a dose of 6 mg IV daily Enteral feeding for nutritional support will follow her clinical course closely Patient is critically ill and will continue to follow make further recommendations based on her progress The patient will need intubation mechanical ventilation. Critically care evaluation for more than 30 minutes Time with Patient: Greater than 30
[2020-06-20 07:57] LABS: C Reactive Protein 2.7 mg/dL (<1.0)
[2020-06-20 08:27] LABS: Glucose,Whole Blood 254 mg/dL (75-99)
[2020-06-20] MEDS: DEXAMETHASONE SOD PHOSPHATE 10 MG/ML 1 ML VIAL IV SCH (08:33)
[2020-06-20] MEDS: FAMOTIDINE 20 MG/2 ML VIAL IV SCH ×2 (08:33→20:07)
[2020-06-20] MEDS: CHLORHEXIDINE GLUCONATE 15 ML CUP MUCOUS MEM SCH ×2 (08:34→20:07)
[2020-06-20] MEDS: ASCORBIC ACID 500 MG TAB PO SCH (08:34)
[2020-06-20] MEDS: CHOLECALCIFEROL 25 MCG (1000 IU) TABLET PO SCH (08:34)
[2020-06-20] MEDS: ARTIFICIAL TEARS-HYPROMELLOSE DROPS 15 ML BTL BOTH EYES SCH ×4 (08:34→22:50)
[2020-06-20] MEDS: SERTRALINE 50 MG TAB PO SCH (08:36)
[2020-06-20 11:34] LABS: Glucose,Whole Blood 217 mg/dL (75-99)
[2020-06-20 16:56] LABS: Glucose,Whole Blood 262 mg/dL (75-99)
[2020-06-20] MEDS ORDERED: INSULIN DETEMIR (LEVEMIR) 100 UNIT/ML SYR SQ ONE (17:00)
--- NOTE | 2020-06-20 19:23 | P.PN ---
Progress Note - Text Progress Note Date: 06/20/20 Chief Complaint: Short of breath History of presenting complaint: This is a 69-year-old patient who follows with Dr. blake . Patient was last seen in the ER about 5 days ago. She then had an having respiratory symptoms including cough for about 2 or 3 weeks prior to that. On this presentation is patient is altered sense. She was last seen normal at home on Sunday. EMS was called out and they found the patient to be hypoxic with 46%. Patient was ventilated with a bag valve and pulse oxygenation improved. He was placed on a nonrebreather and brought here. Here patient's problem of BiPAP. And is somewhat delirious. Not able to give any history. Patient chronic stable medical conditions include diabetes, hypertension, hyperlipidemia, history of breast cancer with right mastectomy. No family members currently present. Admitted with acute severe bilateral COVID 19 pneumonia, acute severe hypoxic respiratory failure, acute metabolic encephalopathy, with delirium. Patient placed on oxygen. Decadron. Lovenox. Consultation to neurology, pulmonary. Lumbar puncture/CSF unremarkable. Patient was placed on BiPAP. Progression of respiratory status patient intubated on June 18 Today-ICU: Ventilator: FiO2 70 PEEP of 15. Remains in atrial fibrillation. Drips include Garnica Kincaid, fentanyl, IV heparin, IV amiodarone. 2 feeding at 30 mL 8 mL an hour Review of systems: Patient intubated Active Medications Acetaminophen (Acetaminophen Suppository 650 Mg Supp) 650 mg RECTAL Q4HR PRN PRN Reason: Fever And/ Or Mild Pain Last Admin: 06/13/20 21:46 Dose: 650 mg Documented by: Artificial Tears (Artificial Tears-Hypromellose Drops 15 Ml Btl) 2 drops BOTH EYES QID [facility] Last Admin: 06/20/20 17:05 Dose: 2 drops Documented by: Ascorbic Acid (Ascorbic Acid 500 Mg Tab) 1,000 mg PO DAILY [facility] Last Admin: 06/20/20 08:34 Dose: 1,000 mg Documented by: Atorvastatin Calcium (Atorvastatin 10 Mg Tab) 10 mg PO HS [facility] Last Admin: 06/19/20 20:36 Dose: 10 mg Documented by: Chlorhexidine Gluconate (Chlorhexidine Gluconate 15 Ml Cup) 15 ml MUCOUS MEM BID [facility] Last Admin: 06/20/20 08:34 Dose: 15 ml Documented by: Cholecalciferol (Cholecalciferol 25 Mcg (1000 Iu) Tablet) 25 mcg PO DAILY [facility] Last Admin: 06/20/20 08:34 Dose: 25 mcg Documented by: Dexamethasone Sodium Phosphate (Dexamethasone Sod Phosphate 10 Mg/Ml 1 Ml Vial) 6 mg IV DAILY [facility] Last Admin: 06/20/20 08:33 Dose: 6 mg Documented by: Famotidine (Famotidine 20 Mg/2 Ml Vial) 20 mg IV Q12HR [facility] Last Admin: 06/20/20 08:33 Dose: 20 mg Documented by: Heparin Sodium (Porcine) (Heparin Sodium 1,000 Un/Ml (10ml Vl)) 0 unit IV PER PROTOCOL PRN; Protocol PRN Reason: Low PTT Last Admin: 06/19/20 15:47 Dose: 2,125 unit Documented by: Diltiazem HCl 125 mg/ Sodium (Chloride) 125 mls @ 0 mls/hr IV .Q0M [facility]; Protocol Last Titration: 06/19/20 12:00 Dose: 0 mls/hr, 0 mls/hr Documented by: Midazolam HCl 50 mg/ Sodium (Chloride) 50 mls @ 10 mls/hr IV .Q5H [facility]; Protocol Last Admin: 06/20/20 18:04 Dose: 8 mg/hr, 8 mls/hr Documented by: Heparin Sodium/Sodium Chloride (25,000 unit/ Sodium Chloride) 250 mls @ 10 mls/hr IV .Q24H [facility]; Protocol Last Admin: 06/20/20 04:51 Dose: 13.614 units/kg/hr, 11.722 mls/hr Documented by: Fentanyl Citrate 1,000 mcg/ (Sodium Chloride) 100 mls @ 0 mls/hr IV .Q0M [facility]; Protocol Last Admin: 06/20/20 16:45 Dose: 1 mcg/kg/hr, 8.61 mls/hr Documented by: Insulin Aspart (Insulin Aspart (Novolog) 100 Unit/Ml Vial) 0 unit SQ Q4H [facility]; Protocol Last Admin: 06/20/20 17:04 Dose: 4 unit Documented by: Insulin Aspart (Insulin Aspart (Novolog) 100 Unit/Ml Vial) 10 unit SQ ACHS [facility] Last Admin: 06/20/20 17:04 Dose: 10 unit Documented by: Insulin Detemir (Insulin Detemir (Levemir) 100 Unit/Ml Syr) 46 unit SQ DAILY@0700 [facility] Miscellaneous Information (Potassium Replacement Protocol 1 Each Misc) 1 each MISCELLANE DAILY PRN; Protocol PRN Reason: Per Protocol Miscellaneous Information (Magnesium Replacement Protocol 1 Each Misc) 1 each MISCELLANE DAILY PRN; Protocol PRN Reason: Per Protocol Naloxone HCl (Naloxone 0.4 Mg/Ml 1 Ml Vial) 0.2 mg IV Q2M PRN PRN Reason: Opioid Reversal Sertraline HCl (Sertraline 50 Mg Tab) 50 mg PO DAILY [facility] Last Admin: 06/20/20 08:36 Dose: 50 mg Documented by: Sodium Chloride (Sodium Chloride 0.9% Flush 10 Ml Syringe) 10 ml IV Q4HR PRN PRN Reason: PICC Line Sodium Chloride (Sodium Chloride 0.9% Flush 10 Ml Syringe) 10 ml IV WEEKLY [facility] Sodium Chloride (Sodium Chloride 0.9% Flush 10 Ml Syringe) 20 ml IV Q4HR PRN PRN Reason: PICC Line Past medical history to include: Breast cancer with mastectomy, diabetes, hypertension, hyperlipidemia, anxiety Social history: Former smoker. Lives alone. Family history: Patient cannot tell Physical examination: VITAL SIGNS: 98.5, 92, 30, 150/62, 95% on ventilator at 30% GENERAL: Sedated, intubated LUNGS:[ Respiratory rate increased,. PSYCH: Unable to assess. Rest of the exam per pulmonary and nursing INVESTIGATIONS, reviewed in the clinical context: June 20: WBC 11.1 hemoglobin 10.8 platelets 189 d-dimer 10.39 potassium 4.6 creatinine 0.78 d-dimer 10.39 potassium 4.6 LDH 2253 CRP 2.7 2-D echo: A. fib. EF greater than 55% June 19: WBC 16 hemoglobin 12.5 platelets 215 potassium 4.6 creatinine 0.75 CRP 3.4 LDH 2524 d-dimer greater than 35 June 16: WBC 14 hemoglobin 13.3 potassium 3.5 creatinine 0.74 LDH 3728 CRP 29.9 d-dimer more than 34 June 17: D-dimer more than 34 LDH 3399, CRP 22 June 14: WBC 8.4 hemoglobin 11.5 platelets 334 d-dimer greater than 34 potassium 3.5 creatinine 0.74 LDH 3339 CRP 41.5 sodium 145 June 15: WBC 9.1 hemoglobin 11.6 sodium 151 potassium 3.4 creatinine 0.86 June 14: WBC 6.6 hemoglobin 12.5 platelets 370 sodium 154 potassium 4.3 creatinine 0.94 June 13: D-dimer 2.13 ABG pH 7.39 pCO2 45 pO2 68 CRP 356 troponin I 0.190 WBC 7.3 hemoglobin 11.8 platelets 357 ABG: PH 7.45 pCO2 32, pO2 79 Potassium 3.9 creatinine 1.0 blood glucose 321 Troponin I 0.104 CRP 334 EKG tracing personally reviewed by me-normal sinus rhythm, nonspecific ST segment changes Chest x-ray film personally reviewed by me-bilateral infiltrate severe CT angio chest: Bilateral diffuse patchy groundglass opacities and consolidation. CTA head and neck: Negative Computed tomography scan of the brain: Negative Assessment and plan: -Acute severe bilateral COVID 19 pneumonia, diagnosed 5 days before admission, with symptoms present 2-3 weeks prior to that.-Not improving on IV dexamethasone, subcu Lovenox, vitamin C vitamin D Pepcid zinc. ACTEMRA -Acute severe hypoxic respiratory failure, secondary to COVID 19 slow to respond Initially BiPAP-100%. Intubated June 18. On ventilator with FiO2 70% -Status post Septic shock On norepinephrine/levo fed -Acute delirium and acute metabolic encephalopathy from COVID 19 pneumonia Follow closely. -Diabetes mellitus type 2 on oral hypoglycemic, uncontrolled with hyperglycemia secondary to steroids Hold off oral hypoglycemic. On insulin drip-loom changeover operator to Levemir -Essential hypertension Not able to tolerate oral medications. Catapres patch 0.2 -Diabetic peripheral neuropathy Resume gabapentin when able to tolerate by mouth -Hyperlipidemia Resume Mevacor unable to tolerate by mouth -Patient underwent lumbar puncture. CSF benign. -Significant hypernatremia with hyperchloremia.-Corrected Cutback D5.45 -New onset of atrial fibrillation with rapid ventricle rate On IV amiodarone. Cardizem Prognosis remains guarded. Continue current medications. Follow-up with sap solution manager consultant
[2020-06-20 20:03] LABS: Glucose,Whole Blood 286 mg/dL (75-99)
[2020-06-20] MEDS: ATORVASTATIN 10 MG TAB PO SCH (20:07)
[2020-06-20 23:37] LABS: Glucose,Whole Blood 200 mg/dL (75-99)
[2020-06-21] MEDS: HEPARIN SOD,PORK IN 0.45% NACL 25,000 UNIT in 0.45% NACL 1 250ML.BAG IV SCH (01:57)
[2020-06-21] MEDS: fentaNYL (PF). 1,000 MCG in SODIUM CHLORIDE 0.9% 80 ML IV SCH ×3 (01:57→17:41)
[2020-06-21 04:03] LABS: Glucose,Whole Blood 134 mg/dL (75-99)
[2020-06-21 04:03] LABS: Glucose,Whole Blood 88 mg/dL (75-99)
[2020-06-21] MEDS: INSULIN ASPART (NovoLOG) 100 UNIT/ML VIAL SQ SCH ×9 (04:28→21:03)
[2020-06-21] MEDS: MIDAZOLAM HCL 50 MG in SODIUM CHLORIDE 0.9% 40 ML IV SCH ×7 (04:29→23:08)
[2020-06-21 04:30] LABS: Basophils % (A) 0 %; Eosinophils # (A) 0.1 k/uL (0-0.7); Eosinophils % (A) 1 %; HCT 31.5 % (34.0-46.0); HGB 9.9 gm/dL (11.4-16.0); Hypochromasia Slight; Lymphocytes # (A) 0.7 k/uL (1.0-4.8); Lymphocytes % (A) 8 %; MCH 29.7 pg (25.0-35.0); MCHC 31.3 g/dL (31.0-37.0); MCV 94.8 fL (80.0-100.0); Mean Platelet Volume 9.8; Monocytes # (A) 0.3 k/uL (0-1.0); Monocytes % (A) 3 %; Neutrophils # (A) 8.3 k/uL (1.3-7.7); Neutrophils % (A) 87 %; Platelet Count 214 k/uL (150-450); RBC 3.32 m/uL (3.80-5.40); RDW 14.7 % (11.5-15.5); WBC 9.5 k/uL (3.8-10.6)
[2020-06-21 04:50] LABS: D-Dimer 5.35 mg/L FEU (<0.60); Partial Thromboplastin Time 40.7 sec (22.0-30.0)
[2020-06-21 05:03] LABS: ABG Base Excess 6.5 mmol/L; ABG HCO3 31 mmol/L (21-25); ABG Oxygen Saturation 95.2 % (94-97); ABG PCO2 48 mmHg (35-45); ABG PH 7.42 (7.35-7.45); ABG PO2 77 mmHg (83-108); ABG TCO2 32 mmol/L (19-24)
[2020-06-21 05:05] LABS: Allen Test Performed? no
[2020-06-21 05:31] LABS: C Reactive Protein 1.8 mg/dL (<1.0)
[2020-06-21] MEDS: CHOLECALCIFEROL 25 MCG (1000 IU) TABLET PO SCH (08:08)
[2020-06-21] MEDS: SERTRALINE 50 MG TAB PO SCH (08:08)
[2020-06-21] MEDS: INSULIN DETEMIR (LEVEMIR) 100 UNIT/ML SYR SQ SCH (08:08)
[2020-06-21] MEDS: CHLORHEXIDINE GLUCONATE 15 ML CUP MUCOUS MEM SCH ×2 (08:08→21:02)
[2020-06-21] MEDS: DEXAMETHASONE SOD PHOSPHATE 10 MG/ML 1 ML VIAL IV SCH (08:09)
[2020-06-21] MEDS: ASCORBIC ACID 500 MG TAB PO SCH (08:09)
[2020-06-21] MEDS: FAMOTIDINE 20 MG/2 ML VIAL IV SCH ×2 (08:09→21:02)
[2020-06-21] MEDS: ARTIFICIAL TEARS-HYPROMELLOSE DROPS 15 ML BTL BOTH EYES SCH ×4 (08:12→21:03)
[2020-06-21 08:15] LABS: Glucose,Whole Blood 146 mg/dL (75-99)
[2020-06-21 08:46] LABS: ALT 42 U/L (4-34); AST 45 U/L (14-36); African American GFR (CKD) >90 (>60 ml/min/1.73 sqM); Albumin 2.6 g/dL (3.5-5.0); Alkaline Phosphatase 86 U/L (38-126); Anion Gap 2 mmol/L; Blood Urea Nitrogen 48 mg/dL (7-17); Calcium 8.7 mg/dL (8.4-10.2); Carbon Dioxide 30 mmol/L (22-30); Chloride 110 mmol/L (98-107); Glucose 131 mg/dL (74-99); Non-African American GFR(CKD) 84 (>60 ml/min/1.73 sqM); Potassium 4.3 mmol/L (3.5-5.1); Sodium 142 mmol/L (137-145); Total Bilirubin 0.4 mg/dL (0.2-1.3); Total Protein 5.3 g/dL (6.3-8.2)
--- NOTE | 2020-06-21 08:46 | XR ---
EXAMINATION TYPE: XR chest 1V portable DATE OF EXAM: 06/21/2020 COMPARISON: Chest x-ray 06/20/2020 HISTORY: Intubated TECHNIQUE: Single frontal view of the chest is obtained. FINDINGS: Findings are similar to prior exam. Endotracheal tube, NG tube, left-sided PICC line are a ll overlying appropriate positions. Cardiac mediastinal silhouette is stable. There is bilateral airs pace disease. No evident pneumothorax or sizable pleural effusion. There are overlying artifacts. IMPRESSION: Findings are similar to prior exam, correlate for pneumonia, edema, ARDS.
[2020-06-21] MEDS ORDERED: ENOXAPARIN 40 MG/0.4 ML SYRINGE SQ SCH (09:00)
--- NOTE | 2020-06-21 11:59 | P.PN ---
Subjective Progress Note Date: 06/21/20 Principal diagnosis: Acute hypoxic respiratory failure related to COVID-19 pneumonia 69-year-old white female patient who presented to the emergency department on 06/12/2020 at 1400 in the afternoon with complaints of shortness of breath, and her first onset of symptoms was approximately 2-3 weeks ago. She tested positive for COVID 19 on 06/07/2020. Patient was seen in the emergency department at that time, and was having symptoms of fatigue, shortness of breath and cough. She does have multiple comorbidities including hypertension, diabetes mellitus, dyslipidemia, history of breast cancer, patient is a former smoker. Was outside the window for monoclonal antibody, she was sent home on Decadron, and vitamins. Chest x-ray at that time showed interstitial infiltrate s. Patient returned with worsening symptoms, chest x-ray on the 2020 showed interval bilateral diffuse infiltrates. In addition patient was confused, on arrival of the EMS to the scene patient was severely hypoxemic with a pulse ox of only 46%. She was bagged valve ventilated with improvement in her oxygen, she was placed on BiPAP support. Brain CT showed no acute intracranial abnormality. Angiography CT showed no acute abnormality of the head/neck, and a moderate stenosis of the right proximal ICA. CBC was positive for lymphopenia with lymphocyte count 0.6, d-dimer was 1.36, sodium is 143, potassium is 3.9, chloride is 108, CO2 22, BUN is 50, creatinine is 1, glucose level was 321, plasma lactic acid is 1.3, AST was 84, ALT was 31, alk phos was 50, troponin was 0.104, CRP was 334. Patient was started on IV Decadron in the emergency department, she remains on BiPAP support, currently at pressures of 12 and 6 and FiO2 100%, she appears to have increased work of breathing, she is not able to answer questions related to dyspnea, repeat blood gas was done showing pO2 of 68, pCO2 45, pH of 7.39 and subsequently her BiPAP settings were adjusted to 14/7 and FiO2 100%, patient is awaiting a bed in the intensive care unit, she is awake and alert, she did answer some simple questions yes or no for me while on BiPAP support, we'll start the patient on IL-6 MAB, Tocilizumab. We'll continue to closely follow her clinical course, continues to deteriorate patient required intubation and placement on mechanical ventilatory supp On today's evaluation of 06/14/2020 the patient is being seen for a follow-up regarding acute hypoxic respiratory failure and COVID 19 pneumonia. The patient was status post positive on 06/07/2020 and the patient was symptomatic prior to that. The patient presented with hypoxic respiratory failure and the patient was placed on a BiPAP which is currently at the pressure of 14/7 cm of water and FiO2 of 900%. Chest x-ray showing bilateral patchy by troponin infiltrates consistent with pneumonia. The patient was started on steroids and Tocilizumab was ordered. The patient is having increased shortness of breath even while on the BiPAP. The patient is quite dyspneic even while on the BiPAP and is unable to complete full sentences. Blood gases from yesterday was noted. CT angiogram of the head and neck showed moderate stenosis of the right proximal ICA. CAT scan of the brain was negative., CRP of 356, troponin was 0.19 and the patient's d-dimer was 2.13. The patient is currently on Decadron 6 mg IV every 24 hours. The patient is on Lovenox 40 mg subcu every 24 hours. The patient on Levemir insulin 20 units daily at bedtime that was started yesterday the patient will be taken off the insulin drip. Currently the patient is also on various hypertensive medications including Zestoretic and Kl clonidine patch and Norvasc . neurologically, the patient is still quite somnolent. She is moving all 4 extremities. No neck stiffness. This encephalopathy is probably related to Covid 19 infection. Neuro is also on the case. His blood work, the sodium level is at 154 with a BUN of 61 and creatinine of 0.9. The patient on IV fluid and currently receiving 0.9 at the rate of 100 mL an hour. On 06/15/2020, the patient is being seen in follow-up in the intensive care unit. This is a case of 69-year-old female patient with Covid associated pneumonia. The patient remains in the emergency department awaiting her bed in the ICU. Currently she is on a BiPAP at a pressure of 14/7 cm of water with an FiO2 of 100%. The patient is quite synchronous and tolerated the BiPAP treatment. Her current tidal volume generated is around 840 mL with a respiratory rate of 29 and a minute ventilation of 23. Chest x-ray from today has not been done and this is supposed to be repeated. The chest x-ray from yesterday was showing diffuse bilaterally pulmonary infiltrates more so in the left perihilar area. No new blood gases. D-dimer is today at 34 and the CRP level is at 67. LDH is still pending for now. Neurologically, the patient is still lethargic and somnolent and encephalopathic. She is on Precedex running at 0.5 mcg/kg per minute. Lumbar puncture was done yesterday and the patient was found to have a CSF RBC of 7, nucleated cells were only a 2, glucose was 79 and the protein was slightly elevated at 66. This is not consistent with bacterial meningitis. It may be consistent with viral encephalopathy. Gram stain of the CSF was negative. Cultures are also negative. I would say clinically she is essentially unchanged. She is more comfortable while being on Precedex. She is hemodynamically stable and she is afebrile. She is still receiving IV fluids in the form of D5 half-normal saline at the rate of 1 25 mL an hour. She is currently off the insulin drip. Her blood sugar is at 128 and the patient is on Levemir insulin 20 units daily at bedtime along with a sliding scale coverage. The patient's renal function currently is stable with a BUN of 63 and a creatinine of 0.8. Sodium level was improving and his sodium level was on the decline it was already down to 151. 06/16/2020, the patient remains on a BiPAP in the emergency department a pressure of 14/7 and FiO2 is currently at 80% and her current pulse ox is around 96%. Her generated tidal volume is around 816 with a respiratory rate of 30 and a minute volume of 25 L per minute. I took her off the Precedex yesterday the patient was quite lethargic. This morning, she is more arousable. She is extremely weak. She is following some simple commands. She is wiggling her toes and moving her arms upon demand. She cannot hold a conversation as the patient is very much BiPAP dependent at this point in time. She easily d esaturates once she is off the BiPAP. She is hemodynamically stable for now. The chest x-ray showing bilateral pulmonary infiltrates, slightly improved compared to yesterday. In terms of her blood work, the patient's blood sugars at 250. She is currently on D5 half-normal saline at the rate of 150 mL an hour. Her sodium level is improved and is down to 145 and a BUN is 36 with a creatinine of 0.7. Her CRP is down to 41. Her LDH level is up to 3339. Rest of the blood work and electrodes are all within normal limits and as mentioned the sodium level is improved and is down to 145. Her lumbar puncture was done and the findings are essentially related to Covid 19 encephalopathy. Case was discussed with neurology. As for the blood sugars, the patient's blood sugars are running in the mid 200s and the patient is on a sliding scale coverage. No major edema in lower extremities. Cardiac rhythm is sinus for now. 06/17/2020, the patient is being seen in follow-up. Unfortunately, she has remained in the emergency and she hasn't been able to find her way up to the ICU. I have her today on a BiPAP at a pressure of 16/8 cm of water with an FiO2 of 100%. The patient was doing well throughout the night and earlier this morning she became significantly more short of breath, hypoxic and tachycardic. Currently she is struggling with her breathing. She is using excessive muscle breathing even while being on a BiPAP. She is able to generate adequate tidal volumes of around 800 mL and her respiratory rate is in the mid 40s. She is tachycardic with a heart rate of 150, sinus. She is unable to speak. She is anxious. She was given a total of 4 mg of morphine which helped her with the breathlessness and shortness of breath. She is awake and arousable and she is moving all 4 extremities. As mentioned earlier, she is a case of COVID-19 related pneumonia. The patient was treated with a combination of treatment and the patient was given Decadron 6 mg IV every 24 hours. The patient also received Tocilizumab 50 mg IV on 06/13/2020. She was having some degree of en cephalopathy that was thought to be a viral encephalopathy in the lumbar puncture was done and it showed some mild elevation of the protein. Otherwise negative. Repeat chest x-ray from today has not been completed. This is in progress. Cardiac rhythm is sinus. The patient is likely headed to in tubation/mechanical ventilation. 06/18/2020, the patient is currently in the intensive care unit. She seems much more comfortable while being on Precedex is running at 0.7 mcg/kg per minute. She is very evasive ventilator and the patient is currently on a pressure of 16/8 with an FiO2 of 100%. She was struggling with her breathing yesterday and she seems to be essentially the same as yesterday without any interval improvement.. Her current respiratory rate is in the order of mid 30s and she is able to generate adequate amount of tidal volume. She is unresponsive. She is on Precedex. Her breathing is unlabored. She is using accessory muscles of breathing. She has less tachycardic to yesterday. She seems to be also less anxious. She is taking morphine on an as-needed basis for shortness of breath and anxiety. On today's blood gas, pH is 7.48 with a pCO2 of 36 and pO2 of 51. Her current pulse ox is 91%. She remains on Decadron 6 mg IV every 24 hours. The patient also received Tocilizumab 720 mg iv. The patient remains also on anticoagulation on Lovenox 45 mg subcu she will 12 hours. In terms of the inflammatory markers, the patient has a d-dimer of above 34, and the patient has a LDH level of 3728 and the patient is a CRP of 29. The inflammatory markers continued to be quite elevated and essentially unchanged compared to yesterday. She is afebrile for now and she is hemodynamically stable on no pressors. She is receiving nutrition via TPN and the patient is decline in her left upper extremity. CSF cultures have been negative. No neck stiffness. Neurology is also on the case and the working diagnosis is COVID-19 related encephalopathy. 06/19/2020 on seeing the patient in the intensive care unit. Noted the patient was brought in to the ICU yesterday and she became progressively more confused, tachypneic, tachycardic and hypoxic and she was failing also BiPAP which she was able to tolerate for a few days. At that point, the decision was to intubate the patient placed on mechanical ventilator. Following intubation, the patient was placed on sedation with propofol and currently propofol is running at 40 mg/kg/m. She also had to be paralyzed and the patient is currently on Nimbex running at 2 mcg/kg per minute. She was taken off the Precedex. For now, she is well sedated and paralyzed on a mechanical ventilator and she is currently on assist control mode rate of 28 with a tidal volume of 400 and FiO2 of 70% with a PEEP of 15. At peak airway pressure on the mechanical ventilator is 33. Static pressure is 31. No orotracheal secretions. The chest x-ray from today showing adequate positioning of the orotracheal tube. The patient also has a orogastric tube in place. The patient had diffuse breath and pulmonary infiltrates consi stent with COVID-19 related pneumonia/ARDS. Her d-dimer was elevated at 35 and the patient was receiving 45 mg of subcu Lovenox every 12 hours. LDH from today is 2544 and a CRP level is at 3.4 and both are elevated. Most recent blood gases from this morning shows a pH of 7.39 with a pCO2 of 47 and pO2 of 79. The patient remains on steroids and she is receiving Decadron 6 g IV every 24 hours. Earlier during the shift, the patient became hypotensive and she had to be placed on pressors and the patient is currently on norepinephrine infusion running at 0.06 mcg/kg per minute. Earlier this morning at around 3:15 AM, the patient also went into new onset atrial fibrillation with rapid ventric ular response. She was given amiodarone bolus 150 mg IV and following that she was given a amiodarone at 1 mg per minute for loading protocol. There was no impact on her heart rate. The patient was also given Cardizem, bolus initially at a dose of 5 mg IV and following that started on a maintenance of 10 mg an hour. She is currently still having atrial fibrillation and her heart rate is in the 130 to 140 range. Blood pressure is soft and the patient is stranding thousand becoming hypotensive. Urine output is order of early cc an hour. IV fluids are running at 20 mL an hour and the patient is on enteral feeding for nutritional support in the form of vital high protein at the rate of 20 mL an hour and the goal is at 38. In terms of her CSF cultures, if very much came back negative. The patient had over the encephalopathy prior to her getting intubated. The triglyceride at baseline prior to her initiation of propofol infusion was 594. I am inclined to switching this patient alternatives sedation. She was on Precedex however this was not effective in combination with fentanyl. I will consider adding Versed infusion. 06/20/2020, the patient is intubated on a mechanical ventilator and she is currently in the intensive care unit. After being on a BiPAP for several days, the patient decompensated. She presented to us with COVID-19 related pneumonia and encephalopathy. She was on Precedex and BiPAP for extended period of time and ultimately she failed and she was intubated and placed on a mechanical ventilator. Propofol was discontinued as the patient was having an elevated triglyceride level and the patient is currently on Versed running at 5 mg an hour and fentanyl running at 1 mcg/kg per minute. The patient is currently off paralytics. He was discontinued yesterday. In terms of treatment, the patient remains on assist control mode of mechanical ventilation. She is on a tidal volume of 400 with an FiO2 of 70% and a PEEP is at 15 with a respiratory rate of 28 and this is volume cycle assist-control mode. The blood gas showed a pH of 7.39 with a pCO2 50 and pO2 of 64. The chest x-ray from today is showing diffuse interstitial infiltrates bilaterally. Overall findings are essentially unchanged compared to yesterday. Orotracheal tube remains in a good location. The peak anesthetic pressures are 31 and 30 respectively. The patient's lig htheadedness a mechanical ventilator and she is currently off paralytics. Meanwhile, at LDH level is at 2253 which is comparable to yesterday and his CRP level from yesterday was at 3.4. Her d-dimer level is at 10.3. She did have a bout of atrial fibrillation yesterday with rapid ventricular response. She was treated with a combination of amiodarone drip and a Cardizem drip. Cardizem drip has been discontinued. Amiodarone drip is running at 0.5 mg per minute and the patient's cardiac rhythm is back in 2 sinus tachycardia and she converted back to sinus yesterday morning. The patient is also on IV heparin infusion. Recommendations are to discontinue the amiodarone for now and keep the IV heparin for another 24 hours. In terms of hemodynamics, the patient has been off pressors since yesterday. She was running only a low dose of norepinephrine infusion. Currently is on IV fluids running at the rate of 20 mL an hour and the net fluid balance has been +1.6 L since yesterday. Remains on Decadron 6 mg IV every 24 hours. Remains on IV heparin for now. Levemir insulin 36 units for blood sugar control along with NovoLog Scale coverage. Blood sugars continued to be quite elevated. NovoLog 10 units 4 times a day will be also added in combination with sliding scale coverage. On 06/21/2020 patient seen in intensive care unit, patient remains intubated, sedated on assist control mode of ventilation with a rate of 28, tidal vitamins 400, FiO2 of 70%, and PEEP of 15, this morning's blood gas shows a pO2 of 77, pCO2 48, and pH of 7.42, patient's chest x-ray today shows ET tube, NG tube, right-sided PICC line in appropriate positions, bilateral airspace disease similar to the prior exam, no evident pneumothorax or sizable pleural effusion. In terms of drips, patient is on 0.9 normal saline at a rate of 20 ML per hour, she is on Versed at 11 mg per hour, and fentanyl drip is at 1.5 mics per kilo per minute, to prevent has been off in view of elevated triglyceride levels, she is receiving nutritional support in the form of vital high protein at a rate of 38 which is goal with standard water flushes. The rest of the blood work has been reviewed today showing white blood cell, 9.5, hemoglobin of 9.9, platelet count is 214, d-dimer is 5.35 which is improved from 10.39 on yesterday's labs, sodium is 142, potassium is 4.3, chloride is 110, CO2 30, BUN of 48, creatinine 0.74, LFTs are improving, AST and ALT are 45 and 42 respectively, alkaline phosphatase is within normal range at 86 today which is also improved, LDH is trending down, at 1816 on today's labs, CRP is 1.8. In terms of therapy patient is currently on Decadron at 6 mg daily IV, she remains off paralytics, she did have a run of A. fib with RVR for which she had Cardizem drip started, she has not had recurrence of A. fib RVR, she was on heparin infusion which we can switch back over to Lovenox at intermediate doses in view of improving d-dimer and no recurrence of arrhythmias. Echocardiogram showed preserved LV function of 55%, mild MR, and mild TR, no evidence of pulmonary hypertension moderate enlargement of the right ventricle. Her blood sugar control has improved, and patient is calm combination of Levemir 46 units daily in addition to NovoLog sliding scale and 10 units of additional NovoLog in addition to sliding scale 4 times daily. Her CSF cultures have shown no growth thus far, cats, mild elevation of temperature, but low-grade fever, with a T-max of 99.8 Objective - Vital Signs Vital signs: Vital Signs Temp 99.2 F 06/21/20 08:00 Pulse 97 06/21/20 11:00 Resp 28 H 06/21/20 11:00 BP 124/66 06/20/20 20:00 Pulse Ox 94 L 06/21/20 11:00 Intake & Output 06/20/20 06/21/20 06/21/20 18:59 06:59 18:59 Intake Total 761.516 9418.533 386.92 Output Total 610 530 285 Balance 367.867 497.533 101.92 Weight 89 kg Intake: IV 240 200 65 0.9 240 200 65 Intake, IV Titration 191.867 473.533 127.92 Amount Heparin Sod,Pork in 0.45% 288.556 NaCl 25,000 unit In 0.45 % NaCl 1 250ml.bag @ 11. 614 UNITS/KG/HR 10 mls/hr IV .Q24H [facility] Rx#: [id number] Midazolam HCl 50 mg In 91.867 87.684 50 Sodium Chloride 0.9% 40 ml @ 10 MG/HR 10 mls/hr IV .Q5H [facility] Rx#:[id number] fentaNYL (PF). 1,000 mcg 100 97.293 77.92 In Sodium Chloride 0.9% 80 ml @ Per Protocol IV . Q0M [facility] Rx#:[id number] Tube Feeding 456 304 114 Other 90 50 80 Output: Urine 610 530 285 Other: Voiding Method Indwelling Catheter Indwelling Catheter Indwelling Catheter ABP, PAP, CO, CI - Last Documented Arterial Blood Pressure 128/55 - Exam GENERAL EXAM: sedated, intubated, 69-year-old white female, on assist-control mode of ventilation with FiO2 of 70% and PEEP of 15, with a pulse ox of 94% comfortable in no apparent distress. HEAD: Normocephalic/atraumatic. EYES: Normal reaction of pupils, equal size. Conjunctiva pink, sclera white. NOSE: Clear with pink turbinates. THROAT: No erythema or exudates. NECK: No masses, no JVD, no thyroid enlargement, no adenopathy. CHEST: No chest wall deformity. Symmetrical expansion. LUNGS: Equal air entry with no crackles, wheeze, rhonchi or dullness. CVS: Regular rate and rhythm, normal S1 and S2, no gallops, no murmurs, no rubs ABDOMEN: Soft, nontender. No hepatosplenomegaly, normal bowel sounds, no guarding or rigidity. EXTREMITIES: No clubbing, no edema, no cyanosis, 2+ pulses and upper and lower extremities. MUSCULOSKELETAL: Muscle strength and tone normal. SPINE: No scoliosis or deformity SKIN: No rashes CENTRAL NERVOUS SYSTEM: Sedated, intubated No focal deficits, tone is normal in all 4 extremities. - Labs CBC & Chem 7: 06/21/20 04:00 06/21/20 04:00 Labs: Abnormal Lab Results - Last 24 Hours (Table) 06/20/20 06/20/20 06/20/20 Range/Units 16:54 20:01 23:33 RBC (3.80-5.40) m/uL Hgb (11.4-16.0) gm/dL Hct (34.0-46.0) % Neutrophils # (1.3-7.7) k/uL Lymphocytes # (1.0-4.8) k/uL APTT (22.0-30.0) sec D-Dimer (<0.60) mg/L FEU ABG pCO2 (35-45) mmHg ABG pO2 (83-108) mmHg ABG HCO3 (21-25) mmol/L ABG Total CO2 (19-24) mmol/L Chloride (98-107) mmol/L BUN (7-17) mg/dL Glucose (74-99) mg/dL POC Glucose (mg/dL) 262 H 286 H 200 H (75-99) mg/dL AST (14-36) U/L ALT (4-34) U/L Lactate Dehydrogenase (313-618) U/L C-Reactive Protein (<1.0) mg/dL Total Protein (6.3-8.2) g/dL Albumin (3.5-5.0) g/dL 06/21/20 06/21/20 06/21/20 Range/Units 04:00 04:00 04:00 RBC 3.32 L (3.80-5.40) m/uL Hgb 9.9 L (11.4-16.0) gm/dL Hct 31.5 L (34.0-46.0) % Neutrophils # 8.3 H (1.3-7.7) k/uL Lymphocytes # 0.7 L (1.0-4.8) k/uL APTT 40.7 H (22.0-30.0) sec D-Dimer 5.35 H (<0.60) mg/L FEU ABG pCO2 (35-45) mmHg ABG pO2 (83-108) mmHg ABG HCO3 (21-25) mmol/L ABG Total CO2 (19-24) mmol/L Chloride (98-107) mmol/L BUN (7-17) mg/dL Glucose (74-99) mg/dL POC Glucose (mg/dL) (75-99) mg/dL AST (14-36) U/L ALT (4-34) U/L Lactate Dehydrogenase 1816 H (313-618) U/L C-Reactive Protein 1.8 H (<1.0) mg/dL Total Protein (6.3-8.2) g/dL Albumin (3.5-5.0) g/dL 06/21/20 06/21/20 06/21/20 Range/Units 04:00 04:02 05:00 RBC (3.80-5.40) m/uL Hgb (11.4-16.0) gm/dL Hct (34.0-46.0) % Neutrophils # (1.3-7.7) k/uL Lymphocytes # (1.0-4.8) k/uL APTT (22.0-30.0) sec D-Dimer (<0.60) mg/L FEU ABG pCO2 48 H (35-45) mmHg ABG pO2 77 L (83-108) mmHg ABG HCO3 31 H (21-25) mmol/L ABG Total CO2 32 H (19-24) mmol/L Chloride 110 H (98-107) mmol/L BUN 48 H (7-17) mg/dL Glucose 131 H (74-99) mg/dL POC Glucose (mg/dL) 134 H (75-99) mg/dL AST 45 H (14-36) U/L ALT 42 H (4-34) U/L Lactate Dehydrogenase (313-618) U/L C-Reactive Protein (<1.0) mg/dL Total Protein 5.3 L (6.3-8.2) g/dL Albumin 2.6 L (3.5-5.0) g/dL 06/21/20 Range/Units 08:04 RBC (3.80-5.40) m/uL Hgb (11.4-16.0) gm/dL Hct (34.0-46.0) % Neutrophils # (1.3-7.7) k/uL Lymphocytes # (1.0-4.8) k/uL APTT (22.0-30.0) sec D-Dimer (<0.60) mg/L FEU ABG pCO2 (35-45) mmHg ABG pO2 (83-108) mmHg ABG HCO3 (21-25) mmol/L ABG Total CO2 (19-24) mmol/L Chloride (98-107) mmol/L BUN (7-17) mg/dL Glucose (74-99) mg/dL POC Glucose (mg/dL) 146 H (75-99) mg/dL AST (14-36) U/L ALT (4-34) U/L Lactate Dehydrogenase (313-618) U/L C-Reactive Protein (<1.0) mg/dL Total Protein (6.3-8.2) g/dL Albumin (3.5-5.0) g/dL Microbiology - Last 24 Hours (Table) 06/14/20 11:30 CSF Gram Stain - Final Cerebral Spinal Fluid CSF Culture - Final Assessment and Plan Plan: Assessment: #1. Acute hypoxic respiratory failure related to acute COVID 19 pneumonia, with onset of symptoms 3 weeks ago, tested positive in the emergency department on 06/07/2020, was outside the window for BAM, was sent home on Decadron and vitamins. Returned for reevaluation worsening symptoms and worsening hypoxia. Status post Tocilizumab, remains on Decadron, patient also has COVID-19 related encephalopathy, patient was maintained on BiPAP for several days, ultimately she failed and required intubation and placement on mechanical ventilator on 06/18/2020. Currently off paralytics, remains on FiO2 of 70%, and PEEP of 15 on 06/21/2020. #2. New onset atrial fibrillation with rapid ventricular response, converted to normal sinus rhythm and patient has remained in sinus rhythm for the past 24 hours with no recurrence of A. fib with RVR, patient was on amiodarone and IV heparin, amiodarone drip has been discontinued, and heparin infusion will be converted to Lovenox. Echocardiogram showed normal LV function #3. Increased inflammatory markers and d-dimer related to the above, improving #3. Troponin leak, followed with serial troponins, likely secondary to COVID-19 related infection #4. Altered mental status, brain CT and angiogram of the brain negative, and currently patient is deeply sedated and intubated #5. Aphasia, rule out possibility of a stroke, neurology consultation has been requested, patient was not a candidate for TPA #6. Hypertension #7. Hyperlipidemia #8. Diabetes multiple's type II #9. History of breast cancer with history of right mastectomy #10. History of anxiety #11. Former smoker #12. Hyperchloremic hypernatremia, currently improved #13. Hyper triglyceridemia, and patient is currently being maintained on Versed and no infusions for sedation and patient has been off the Diprivan and Plan: Continue current medical treatment Continue same vent settings, dropped FiO2 down to 65% and continue weaning it down by 5 to maintain O2 saturation above 90% Continue current sedatives, patient is off the Diprivan, using a combination of Versed and fentanyl Continue social support We will discontinue heparin infusion and restart the patient back on Lovenox 40 mg twice daily Hemodynamically stable Inflammatory markers are improving Chest x-ray shows stable findings of bilateral pneumonia Oxygenation is improving and FiO2 has been cut back to 65% Echocardiogram has been reviewed and is within normal limits, currently patient remains in sinus mechanism Continue current dose Decadron Not ready for any weaning trials Follow inflammatory markers, basic labs, blood gases Follow-up chest x-ray in the morning Prognosis remains guarded I performed a history & physical examination of the patient and discussed their management with my nurse practitioner, Kimmy Conn. I reviewed the nurse practitioner's note and agree with the documented findings and plan of care. Lung sounds are positive for diminished breath sounds. The findings and the impression was discussed with the patient. I attest to the documentation by the nurse practitioner. Time with Patient: Greater than 30
[2020-06-21 12:11] LABS: Glucose,Whole Blood 207 mg/dL (75-99)
[2020-06-21 16:52] LABS: Glucose,Whole Blood 173 mg/dL (75-99)
--- NOTE | 2020-06-21 20:50 | P.PN ---
Progress Note - Text Progress Note Date: 06/21/20 Chief Complaint: Short of breath History of presenting complaint: This is a 69-year-old patient who follows with Dr. blake . Patient was last seen in the ER about 5 days ago. She then had an having respiratory symptoms including cough for about 2 or 3 weeks prior to that. On this presentation is patient is altered sense. She was last seen normal at home on Sunday. EMS was called out and they found the patient to be hypoxic with 46%. Patient was ventilated with a bag valve and pulse oxygenation improved. He was placed on a nonrebreather and brought here. Here patient's problem of BiPAP. And is somewhat delirious. Not able to give any history. Patient chronic stable medical conditions include diabetes, hypertension, hyperlipidemia, history of breast cancer with right mastectomy. No family members currently present. Admitted with acute severe bilateral COVID 19 pneumonia, acute severe hypoxic respiratory failure, acute metabolic encephalopathy, with delirium. Patient placed on oxygen. Decadron. Lovenox. Consultation to neurology, pulmonary. Lumbar puncture/CSF unremarkable. Patient was placed on BiPAP. Progression of respiratory status patient intubated on June 18. Run of text[employer] with rapid ventricular rate-sinus rhythm. Today-ICU: Ventilator: FiO2 60 and a PEEP of 15. Telemetry sinus rhythm. Drips include heparin, fentanyl, midazolam, Tube feeding at 48 mils an hour. Review of systems: Patient intubated Active Medications Acetaminophen (Acetaminophen Suppository 650 Mg Supp) 650 mg RECTAL Q4HR PRN PRN Reason: Fever And/ Or Mild Pain Last Admin: 06/13/20 21:46 Dose: 650 mg Documented by: Artificial Tears (Artificial Tears-Hypromellose Drops 15 Ml Btl) 2 drops BOTH EYES QID [facility] Last Admin: 06/21/20 16:56 Dose: 2 drops Documented by: Ascorbic Acid (Ascorbic Acid 500 Mg Tab) 1,000 mg PO DAILY [facility] Last Admin: 06/21/20 08:09 Dose: 1,000 mg Documented by: Atorvastatin Calcium (Atorvastatin 10 Mg Tab) 10 mg PO HS [facility] Last Admin: 06/20/20 20:07 Dose: 10 mg Documented by: Chlorhexidine Gluconate (Chlorhexidine Gluconate 15 Ml Cup) 15 ml MUCOUS MEM BID [facility] Last Admin: 06/21/20 08:08 Dose: 15 ml Documented by: Cholecalciferol (Cholecalciferol 25 Mcg (1000 Iu) Tablet) 25 mcg PO DAILY [facility] Last Admin: 06/21/20 08:08 Dose: 25 mcg Documented by: Dexamethasone Sodium Phosphate (Dexamethasone Sod Phosphate 10 Mg/Ml 1 Ml Vial) 6 mg IV DAILY [facility] Last Admin: 06/21/20 08:09 Dose: 6 mg Documented by: Enoxaparin Sodium (Enoxaparin 40 Mg/0.4 Ml Syringe) 40 mg SQ BID [facility] Last Admin: 06/21/20 10:08 Dose: Not Given Documented by: Famotidine (Famotidine 20 Mg/2 Ml Vial) 20 mg IV Q12HR [facility] Last Admin: 06/21/20 08:09 Dose: 20 mg Documented by: Diltiazem HCl 125 mg/ Sodium (Chloride) 125 mls @ 0 mls/hr IV .Q0M [facility]; Protocol Last Titration: 06/19/20 12:00 Dose: 0 mls/hr, 0 mls/hr Documented by: Midazolam HCl 50 mg/ Sodium (Chloride) 50 mls @ 10 mls/hr IV .Q5H [facility]; Protocol Last Admin: 06/21/20 19:02 Dose: 10 mg/hr, 10 mls/hr Documented by: Fentanyl Citrate 1,000 mcg/ (Sodium Chloride) 100 mls @ 0 mls/hr IV .Q0M [facility]; Protocol Last Admin: 06/21/20 17:41 Dose: 1.5 mcg/kg/hr, 12.915 mls/hr Documented by: Insulin Aspart (Insulin Aspart (Novolog) 100 Unit/Ml Vial) 0 unit SQ Q4H [facility]; Protocol Last Admin: 06/21/20 16:56 Dose: 4 unit Documented by: Insulin Aspart (Insulin Aspart (Novolog) 100 Unit/Ml Vial) 10 unit SQ Q4H [facility] Last Admin: 06/21/20 16:57 Dose: 10 unit Documented by: Insulin Detemir (Insulin Detemir (Levemir) 100 Unit/Ml Syr) 46 unit SQ DAILY@0700 [facility] Last Admin: 06/21/20 08:08 Dose: 46 unit Documented by: Miscellaneous Information (Potassium Replacement Protocol 1 Each Misc) 1 each MISCELLANE DAILY PRN; Protocol PRN Reason: Per Protocol Miscellaneous Information (Magnesium Replacement Protocol 1 Each Misc) 1 each MISCELLANE DAILY PRN; Protocol PRN Reason: Per Protocol Naloxone HCl (Naloxone 0.4 Mg/Ml 1 Ml Vial) 0.2 mg IV Q2M PRN PRN Reason: Opioid Reversal Sertraline HCl (Sertraline 50 Mg Tab) 50 mg PO DAILY [facility] Last Admin: 06/21/20 08:08 Dose: 50 mg Documented by: Sodium Chloride (Sodium Chloride 0.9% Flush 10 Ml Syringe) 10 ml IV Q4HR PRN PRN Reason: PICC Line Sodium Chloride (Sodium Chloride 0.9% Flush 10 Ml Syringe) 10 ml IV WEEKLY [facility] Sodium Chloride (Sodium Chloride 0.9% Flush 10 Ml Syringe) 20 ml IV Q4HR PRN PRN Reason: PICC Line Past medical history to include: Breast cancer with mastectomy, diabetes, hypertension, hyperlipidemia, anxiety Social history: Former smoker. Lives alone. Family history: Patient cannot tell Physical examination: VITAL SIGNS: Afebrile, 79, 28, 110/55, 95% on the ventilator GENERAL: Sedated, intubated LUNGS:[ Respiratory rate increased,. PSYCH: Unable to assess. Rest of the exam per pulmonary and nursing INVESTIGATIONS, reviewed in the clinical context: June 21: WBC 9.5 hemoglobin 9.9 platelets 214 d-dimer 5.35 potassium 4.3 creatinine 0.74 LDH 1816 CRP 1.8 June 20: WBC 11.1 hemoglobin 10.8 platelets 189 d-dimer 10.39 potassium 4.6 creatinine 0.78 d-dimer 10.39 potassium 4.6 LDH 2253 CRP 2.7 2-D echo: A. fib. EF greater than 55% June 19: WBC 16 hemoglobin 12.5 platelets 215 potassium 4.6 creatinine 0.75 CRP 3.4 LDH 2524 d-dimer greater than 35 June 18: WBC 14 hemoglobin 13.3 potassium 3.5 creatinine 0.74 LDH 3728 CRP 29.9 d-dimer more than 34 June 17: D-dimer more than 34 LDH 3399, CRP 22 June 14: WBC 8.4 hemoglobin 11.5 platelets 334 d-dimer greater than 34 potassium 3.5 creatinine 0.74 LDH 3339 CRP 41.5 sodium 145 June 15: WBC 9.1 hemoglobin 11.6 sodium 151 potassium 3.4 creatinine 0.86 June 14: WBC 6.6 hemoglobin 12.5 platelets 370 sodium 154 potassium 4.3 creatinine 0.94 June 13: D-dimer 2.13 ABG pH 7.39 pCO2 45 pO2 68 CRP 356 troponin I 0.190 WBC 7.3 hemoglobin 11.8 platelets 357 ABG: PH 7.45 pCO2 32, pO2 79 Potassium 3.9 creatinine 1.0 blood glucose 321 Troponin I 0.104 CRP 334 EKG tracing personally reviewed by me-normal sinus rhythm, nonspecific ST segment changes Chest x-ray film personally reviewed by me-bilateral infiltrate severe CT angio chest: Bilateral diffuse patchy groundglass opacities and consolidation. CTA head and neck: Negative Computed tomography scan of the brain: Negative Assessment and plan: -Acute severe bilateral COVID 19 pneumonia, diagnosed 5 days before admission, with symptoms present 2-3 weeks prior to that.-Not improving on IV dexamethasone, subcu Lovenox, vitamin C vitamin D Pepcid zinc. Received ACTEMRA -Acute severe hypoxic respiratory failure, secondary to COVID 19 slow to respond Initially BiPAP-100%. Intubated June 18. On ventilator with FiO2 60% -Septic shock-improved On norepinephrine/levo fed-stopped -Acute delirium and acute metabolic encephalopathy from COVID 19 pneumonia Follow closely. -Diabetes mellitus type 2 on oral hypoglycemic, uncontrolled with hyperglycemia secondary to steroids Hold off oral hypoglycemic. 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 Catapres patch 0.2 -Diabetic peripheral neuropathy Resume gabapentin when able to tolerate by mouth -Hyperlipidemia Resume Mevacor unable to tolerate by mouth -Patient underwent lumbar puncture. CSF benign. -Significant hypernatremia with hyperchloremia.-Corrected Cutback D5.45 -Paroxysmal atrial fibrillation with rapid ventricle [id number] rhythm Received amiodarone. Cardizem drip discontinued. Started xarelto Prognosis remains guarded. Continue current medications. Follow-up with medical office representative. Started xarelto for the A. fib. DC Lovenox
[2020-06-21 20:59] LABS: Glucose,Whole Blood 192 mg/dL (75-99)
[2020-06-21] MEDS: ATORVASTATIN 10 MG TAB PO SCH (21:02)
[2020-06-21] MEDS: RIVAROXABAN 20 MG TAB PO SCH (21:13)
[2020-06-22 00:27] LABS: Glucose,Whole Blood 174 mg/dL (75-99)
[2020-06-22] MEDS: INSULIN ASPART (NovoLOG) 100 UNIT/ML VIAL SQ SCH ×12 (00:39→20:30)
[2020-06-22] MEDS: fentaNYL (PF). 1,000 MCG in SODIUM CHLORIDE 0.9% 80 ML IV SCH ×3 (02:10→15:59)
[2020-06-22 04:20] LABS: Glucose,Whole Blood 111 mg/dL (75-99)
[2020-06-22] MEDS: MIDAZOLAM HCL 50 MG in SODIUM CHLORIDE 0.9% 40 ML IV SCH ×4 (04:35→20:10)
[2020-06-22 04:49] LABS: Basophils % (A) 0 %; Eosinophils # (A) 0.1 k/uL (0-0.7); Eosinophils % (A) 1 %; HCT 29.9 % (34.0-46.0); Lymphocytes # (A) 0.6 k/uL (1.0-4.8); Lymphocytes % (A) 8 %; MCH 31.5 pg (25.0-35.0); MCHC 33.5 g/dL (31.0-37.0); MCV 94.2 fL (80.0-100.0); Mean Platelet Volume 9.5; Monocytes # (A) 0.2 k/uL (0-1.0); Monocytes % (A) 2 %; Neutrophils # (A) 6.7 k/uL (1.3-7.7); Neutrophils % (A) 88 %; Platelet Count 191 k/uL (150-450); RBC 3.17 m/uL (3.80-5.40); RDW 14.4 % (11.5-15.5); WBC 7.6 k/uL (3.8-10.6)
[2020-06-22 05:21] LABS: ABG Base Excess 7.6 mmol/L; ABG HCO3 32 mmol/L (21-25); ABG PCO2 50 mmHg (35-45); ABG PH 7.42 (7.35-7.45); ABG PO2 66 mmHg (83-108); ABG TCO2 34 mmol/L (19-24); Allen Test Performed? Yes
[2020-06-22 05:21] LABS: ALT 32 U/L (4-34); AST 36 U/L (14-36); African American GFR (CKD) >90 (>60 ml/min/1.73 sqM); Albumin 2.6 g/dL (3.5-5.0); Alkaline Phosphatase 63 U/L (38-126); Anion Gap 1 mmol/L; Blood Urea Nitrogen 46 mg/dL (7-17); C Reactive Protein 1.6 mg/dL (<1.0); Carbon Dioxide 33 mmol/L (22-30); Chloride 108 mmol/L (98-107); Glucose 97 mg/dL (74-99); LDH 1546 U/L (313-618); Non-African American GFR(CKD) >90 (>60 ml/min/1.73 sqM); Potassium 4.4 mmol/L (3.5-5.1); Sodium 142 mmol/L (137-145); Total Bilirubin 0.4 mg/dL (0.2-1.3); Total Protein 5.1 g/dL (6.3-8.2)
[2020-06-22 07:40] LABS: Glucose,Whole Blood 85 mg/dL (75-99)
--- NOTE | 2020-06-22 07:43 | XR ---
EXAMINATION TYPE: XR chest 1V portable DATE OF EXAM: 06/22/2020 COMPARISON: Chest x-ray 06/21/2020 HISTORY: Intubated, abnormal chest x-ray TECHNIQUE: Single frontal view of the chest is obtained. FINDINGS: Left-sided PICC line, orogastric tube, endotracheal tube are stable. Pleural-parenchymal c hanges within the lungs are not changed. Cardiac mediastinal silhouette is stable. IMPRESSION: No interval change. Correlate for pneumonia, ARDS, congestive heart failure
[2020-06-22] MEDS: ARTIFICIAL TEARS-HYPROMELLOSE DROPS 15 ML BTL BOTH EYES SCH ×4 (08:03→23:15)
[2020-06-22] MEDS: INSULIN DETEMIR (LEVEMIR) 100 UNIT/ML SYR SQ SCH (08:03)
[2020-06-22] MEDS: DEXAMETHASONE SOD PHOSPHATE 10 MG/ML 1 ML VIAL IV SCH (08:04)
[2020-06-22] MEDS: ASCORBIC ACID 500 MG TAB PO SCH (08:04)
[2020-06-22] MEDS: CHLORHEXIDINE GLUCONATE 15 ML CUP MUCOUS MEM SCH ×2 (08:04→20:30)
[2020-06-22] MEDS: FAMOTIDINE 20 MG/2 ML VIAL IV SCH (08:04)
[2020-06-22] MEDS: CHOLECALCIFEROL 25 MCG (1000 IU) TABLET PO SCH (08:04)
[2020-06-22] MEDS: SERTRALINE 50 MG TAB PO SCH (08:04)
[2020-06-22 12:14] LABS: Glucose,Whole Blood 221 mg/dL (75-99)
--- NOTE | 2020-06-22 12:41 | P.PN ---
Subjective Progress Note Date: 06/22/20 Principal diagnosis: Acute hypoxic failure secondary to COVID-19 pneumonia. 69-year-old white female patient who presented to the emergency department on 06/12/2020 at 1400 in the afternoon with complaints of shortness of breath, and her first onset of symptoms was approximately 2-3 weeks ago. She tested positive for COVID 19 on 06/07/2020. Patient was seen in the emergency department at that time, and was having symptoms of fatigue, shortness of breath and cough. She does have multiple comorbidities including hypertension, diabetes mellitus, dyslipidemia, history of breast cancer, patient is a former smoker. Was outside the window for monoclonal antibody, she was sent home on Decadron, and vitamins. Chest x-ray at that time showed interstitial infiltrates. Patient returned with worsening symptoms, chest x-ray on the 2020 showed interval bilateral diffuse infiltrates. In addition patient was confused, on arrival of the EMS to the scene patient was severely hypoxemic with a pulse ox of only 46%. She was bagged valve ventilated with improvement in her oxygen, she was placed on BiPAP support. Brain CT showed no acute intracranial abnormality. Angiography CT showed no acute abnormality of the head/neck, and a moderate stenosis of the right proximal ICA. CBC was positive for lymphopenia with lymphocyte count 0.6, d-dimer was 1.36, sodium is 143, potassium is 3.9, chloride is 108, CO2 22, BUN is 50, creatinine is 1, glucose level was 321, plasma lactic acid is 1.3, AST was 84, ALT was 31, alk phos was 50, troponin was 0.104, CRP was 334. Patient was started on IV Decadron in the emergency department, she remains on BiPAP support, currently at pressures of 12 and 6 and FiO2 100%, she appears to have increased work of breathing, she is not able to answer questions related to dyspnea, repeat blood gas was done showing pO2 of 68, pCO2 45, pH of 7.39 and subsequently her BiPAP settings were adjusted to 14/7 and FiO2 100%, patient is awaiting a bed in the intensive care unit, she is awake and alert, she did answer some simple questions yes or no for me while on BiPAP support, we'll start the patient on IL-6 MAB, Tocilizumab. We'll continue to closely follow her clinical course, continues to deteriorate patient required intubation and placement on mechanical ventilatory supp On today's evaluation of 06/14/2020 the patient is being seen for a follow-up regarding acute hypoxic respiratory failure and COVID 19 pneumonia. The patient was status post positive on 06/07/2020 and the patient was symptomatic prior to that. The patient presented with hypoxic respiratory failure and the patient was placed on a BiPAP which is currently at the pressure of 14/7 cm of water and FiO2 of 900%. Chest x-ray showing bilateral patchy by troponin infiltrates consistent with pneumonia. The patient was started on steroids and Tocilizumab was ordered. The patient is having increased shortness of breath even while on the BiPAP. The patient is quite dyspneic even while on the BiPAP and is unable to complete full sentences. Blood gases from yesterday was noted. CT angiogram of the head and neck showed moderate stenosis of the right proximal ICA. CAT scan of the brain was negative., CRP of 356, troponin was 0.19 and the patient's d-dimer was 2.13. The patient is currently on Decadron 6 mg IV every 24 hours. The patient is on Lovenox 40 mg subcu every 24 hours. The patient on Levemir insulin 20 units daily at bedtime that was started yesterday the patient will be taken off the insulin drip. Currently the patient is also on various hypertensive medications including Zestoretic and Kl clonidine patch and Norvasc. neurologically, the patient is still quite somnolent. She is moving all 4 extremities. No neck stiffness. This encephalopathy is probably related to Covid 19 infection. Neuro is also on the case. His blood work, the sodium level is at 154 with a BUN of 61 and creatinine of 0.9. The patient on IV fluid and currently receiving 0.9 at the rate of 100 mL an hour. On 06/15/2020, the patient is being seen in follow-up in the intensive care unit. This is a case of 69-year-old female patient with Covid associated pneumonia. The patient remains in the emergency department awaiting her bed in the ICU. Currently she is on a BiPAP at a pressure of 14/7 cm of water with an FiO2 of 100%. The patient is quite synchronous and tolerated the BiPAP treatment. Her current tidal volume generated is around 840 mL with a respiratory rate of 29 and a minute ventilation of 23. Chest x-ray from today has not been done and this is supposed to be repeated. The chest x-ray from yesterday was showing diffuse bilaterally pulmonary infiltrates more so in the left perihilar area. No new blood gases. D-dimer is today at 34 and the CRP level is at 67. LDH is still pending for now. Neurologically, the patient is still lethargic and somnolent and encephalopathic. She is on Precedex running at 0.5 mcg/kg per minute. Lumbar puncture was done yesterday and the patient was found to have a CSF RBC of 7, nucleated cells were only a 2, glucose was 79 and the protein was slightly elevated at 66. This is not consistent with bacterial meningitis. It may be consistent with viral encephalopathy. Gram st ain of the CSF was negative. Cultures are also negative. I would say clinically she is essentially unchanged. She is more comfortable while being on Precedex. She is hemodynamically stable and she is afebrile. She is still receiving IV fluids in the form of D5 half-normal saline at the rate of 1 25 mL an hour. She is currently off the insulin drip. Her blood sugar is at 128 and the patient is on Levemir insulin 20 units daily at bedtime along with a sliding scale coverage. The patient's renal function currently is stable with a BUN of 63 and a creatinine of 0.8. Sodium level was improving and his sodium level was on the decline it was already down to 151. 06/16/2020, the patient remains on a BiPAP in the emergency department a pressure of 14/7 and FiO2 is currently at 80% and her current pulse ox is around 96%. Her generated tidal volume is around 816 with a respiratory rate of 30 and a minute volume of 25 L per minute. I took her off the Precedex yesterday the patient was quite lethargic. This morning, she is more arousable. She is extremely weak. She is following some simple commands. She is wiggling her toes and moving her arms upon demand. She cannot hold a conversation as the patient is very much BiPAP dependent at this point in time. She easily desaturates once she is off the BiPAP. She is hemodynamically stable for now. The chest x-ray showing bilateral pulmonary infiltrates, slightly improved compared to yesterday. In terms of her blood work, the patient's blood sugars at 250. She is currently on D5 half-normal saline at the rate of 150 mL an hour. Her sodium level is improved and is down to 145 and a BUN is 36 with a creatinine of 0.7. Her CRP is down to 41. Her LDH level is up to 3339. Rest of the blood work and electrodes are all within normal limits and as mentioned the sodium level is improved and is down to 145. Her lumbar puncture was done and the findings are essentially related to Covid 19 encephalopathy. Case was discussed with neurology. As for the blood sugars, the patient's blood sugars are running in the mid 200s and the patient is on a sliding scale coverage. No major edema in lower extremities. Cardiac rhythm is sinus for now. 06/17/2020, the patient is being seen in follow-up. Unfortunately, she has remained in the emergency and she hasn't been able to find her way up to the ICU. I have her today on a BiPAP at a pressure of 16/8 cm of water with an FiO2 of 100%. The patient was doing well throughout the night and earlier this morning she became significantly more short of breath, hypoxic and tachycardic. Currently she is struggling with her breathing. She is using excessive muscle breathing even while being on a BiPAP. She is able to generate adequate tidal volumes of around 800 mL and her respiratory rate is in the mid 40s. She is tachycardic with a heart rate of 150, sinus. She is unable to speak. She is anxious. She was given a total of 4 mg of morphine which helped her with the breathlessness and shortness of breath. She is awake and arousable and she is moving all 4 extremities. As mentioned earlier, she is a case of COVID-19 related pneumonia. The patient was treated with a combination of treatment and the patient was given Decadron 6 mg IV every 24 hours. The patient also received Tocilizumab 50 mg IV on 06/13/2020. She was having some degree of encephalopathy that was thought to be a viral encephalopathy in the lumbar puncture was done and it showed some mild elevation of the protein. Otherwise negative. Repeat chest x-ray from today has not been completed. This is in progress. Cardiac rhythm is sinus. The patient is likely headed to intubation/ mechanical ventilation. 06/18/2020, the patient is currently in the intensive care unit. She seems much more comfortable while being on Precedex is running at 0.7 mcg/kg per minute. She is very evasive ventilator and the patient is currently on a pressure of 16/8 with an FiO2 of 100%. She was struggling with her breathing yesterday and she seems to be essentially the same as yesterday without any interval improvement.. Her current respiratory rate is in the order of mid 30s and she is able to generate adequate amount of tidal volume. She is unresponsive. She is on Precedex. Her breathing is unlabored. She is using accessory muscles of breathing. She has less tachycardic to yesterday. She seems to be also less anxious. She is taking morphine on an as-needed basis for shortness of breath and anxiety. On today's blood gas, pH is 7.48 with a pCO2 of 36 and pO2 of 51. Her current pulse ox is 91%. She remains on Decadron 6 mg IV every 24 hours. The patient also received Tocilizumab 720 mg iv. The patient remains also on anticoagulation on Lovenox 45 mg subcu she will 12 hours. In terms of the inflammatory markers, the patient has a d-dimer of above 34, and the patient has a LDH level of 3728 and the patient is a CRP of 29. The inflammatory markers continued to be quite elevated and essentially unchanged compared to yesterday. She is afebrile for now and she is hemodynamically stable on no pressors. She is receiving nutrition via TPN and the patient is decline in her left upper extremity. CSF cultures have been negative. No neck stiffness. Neurology is also on the case and the working diagnosis is COVID-19 related encephalopathy. 06/19/2020 on seeing the patient in the intensive care unit. Noted the patient was brought in to the ICU yesterday and she became progressively more confused, tachypneic, tachycardic and hypoxic and she was failing also BiPAP which she was able to tolerate for a few days. At that point, the decision was to intubate the patient placed on mechanical ventilator. Following intubation, the patient was placed on sedation with propofol and currently propofol is running at 40 mg/kg/m. She also had to be paralyzed and the patient is currently on Nimbex running at 2 mcg/kg per minute. She was taken off the Precedex. For now, she is well sedated and paralyzed on a mechanical ventilator and she is currently on assist control mode rate of 28 with a tidal volume of 400 and FiO2 of 70% with a PEEP of 15. At peak airway pressure on the mechanical ventilator is 33. Static pressure is 31. No orotracheal secretions. The chest x-ray from today showing adequate positioning of the orotracheal tube. The patient also has a orogastric tube in place. The patient had diffuse breath and pulmonary infiltrates consistent with COVID-19 related pneumonia/ARDS. Her d-dimer was elevated at 35 and the patient was receiving 45 mg of subcu Lovenox every 12 hours. LDH from today is 2544 and a CRP level is at 3.4 and both are elevated. Most recent blood gases from this morning shows a pH of 7.39 with a pCO2 of 47 and pO2 of 79. The patient remains on steroids and she is receiving Decadron 6 g IV every 24 hours. Earlier during the shift, the patient became hypotensive and she had to be placed on pressors and the patient is currently on norepinephrine infusion running at 0.06 mcg/kg per minute. Earlier this morning at around 3:15 AM, the patient also went into new onset atrial fibrillation with rapid ventricular response. She was given amiodarone bolus 150 mg IV and following that she was given a amiodarone at 1 mg per minute for loading protocol. There was no impact on her heart rate. The patient was also given Cardizem, bolus initially at a dose of 5 mg IV and following that started on a maintenance of 10 mg an hour. She is currently still having atrial fibrillation and her heart rate is in the 130 to 140 range. Blood pressure is soft and the patient is stranding thousand becoming hypotensive. Urine output is order of early cc an hour. IV fluids are running at 20 mL an hour and the patient is on enteral feeding for nutritional support in the form of vital high protein at the rate of 20 mL an hour and the goal is at 38. In terms of her CSF cultures, if very much came back negative. The patient had over the encephalopathy prior to her getting intubated. The triglyceride at baseline prior to her initiation of propofol infusion was 594. I am inclined to switching this patient alternatives sedation. She was on Precedex however this was not effective in combination with fentanyl. I will consider adding Versed infusion. 06/20/2020, the patient is intubated on a mechanical ventilator and she is currently in the intensive care unit. After being on a BiPAP for several days, the patient decompensated. She presented to us with COVID-19 related pneumonia and encephalopathy. She was on Precedex and BiPAP for extended period of time and ultimately she failed and she was intubated and placed on a mechanical ventilator. Propofol was discontinued as the patient was having an elevated triglyceride level and the patient is currently on Versed running at 5 mg an hour and fentanyl running at 1 mcg/kg per minute. The patient is currently off paralytics. He was discontinued yesterday. In terms of treatment, the patient remains on assist control mode of mechanical ventilation. She is on a tidal volume of 400 with an FiO2 of 70% and a PEEP is at 15 with a respiratory rate of 28 and this is volume cycle assist-control mode. The blood gas showed a pH of 7.39 with a pCO2 50 and pO2 of 64. The chest x-ray from today is showing diffuse interstitial infiltrates bilaterally. Overall findings are essentially unchanged compared to yesterday. Orotracheal tube remains in a good location. The peak anesthetic pressures are 31 and 30 respectively. The patient's lightheadedness a mechanical ventilator and she is currently off paralytics. Meanwhile, at LDH level is at 2253 which is comparable to yesterday and his CRP level from yesterday was at 3.4. Her d-dimer level is at 10.3. She did have a bout of atrial fibrillation yesterday with rapid ventricular response. She was treated with a combination of amiodarone drip and a Cardizem drip. Cardizem drip has been discontinued. Amiodarone drip is running at 0.5 mg per minute and the patient's cardiac rhythm is back in 2 sinus tachycardia and she converted back to sinus yesterday morning. The patient is also on IV heparin infusion. Recommendations are to discontinue the amiodarone for now and keep the IV hepar in for another 24 hours. In terms of hemodynamics, the patient has been off pressors since yesterday. She was running only a low dose of norepinephrine infusion. Currently is on IV fluids running at the rate of 20 mL an hour and the net fluid balance has been +1.6 L since yesterday. Remains on Decadron 6 mg IV every 24 hours. Remains on IV heparin for now. Levemir insulin 36 units for blood sugar control along with NovoLog Scale coverage. Blood sugars continued to be quite elevated. NovoLog 10 units 4 times a day will be also added in combination with sliding scale coverage. On 06/21/2020 patient seen in intensive care unit, patient remains intubated, sedated on assist control mode of ventilation with a rate of 28, tidal vitamins 400, FiO2 of 70%, and PEEP of 15, this morning's blood gas shows a pO2 of 77, pCO2 48, and pH of 7.42, patient's chest x-ray today shows ET tube, NG tube, right-sided PICC line in appropriate positions, bilateral airspace disease similar to the prior exam, no evident pneumothorax or sizable pleural effusion. In terms of drips, patient is on 0.9 normal saline at a rate of 20 ML per hour, she is on Versed at 11 mg per hour, and fentanyl drip is at 1.5 mics per kilo per minute, to prevent has been off in view of elevated triglyceride levels, she is receiving nutritional support in the form of vital high protein at a rate of 38 which is goal with standard water flushes. The rest of the blood work has been reviewed today showing white blood cell, 9.5, hemoglobin of 9.9, platelet count is 214, d-dimer is 5.35 which is improved from 10.39 on yesterday's labs, sodium is 142, potassium is 4.3, chloride is 110, CO2 30, BUN of 48, creatinine 0.74, LFTs are improving, AST and ALT are 45 and 42 respectively, alkaline phosphatase is within normal range at 86 today which is also improved, LDH is trending down, at 1816 on today's labs, CRP is 1.8. In terms of therapy patient is currently on Decadron at 6 mg daily IV, she remains off paralytics, she did have a run of A. fib with RVR for which she had Cardizem drip started, she has not had recurrence of A. fib RVR, she was on heparin infusion which we can switch back over to Lovenox at intermediate doses in view of improving d-dimer and no recurrence of arrhythmias. Echocardiogram showed preserved LV function of 55%, mild MR, and mild TR, no evidence of pulmonary hypertension moderate en largement of the right ventricle. Her blood sugar control has improved, and patient is calm combination of Levemir 46 units daily in addition to NovoLog sliding scale and 10 units of additional NovoLog in addition to sliding scale 4 times daily. Her CSF cultures have shown no growth thus far, cats, mild elevation of temperature, but low-grade fever, with a T-max of 99.8 Patient was reevaluated today on 06/22/2020, remains intubated and mechanically ventilated. Her assist-control rate is 28, tidal volume is 400, FiO2 is 55%, PEEP is 15. Peak airway pressure is 29 static pressures 27. ABG this morning showed a pO2 of 66 pCO2 of 50 pH of 7.42. Remains on Versed at 9 mg per hour, and fentanyl at 1.5 mcg/kg/h. Patient is also on IV fluid at 0.9 normal saline, receiving tube feeding at 58 ML per hour. Patient was switched to Xarelto. From Lovenox. CBC is relatively normal. Her d-dimer is 10.74. Electrolytes are normal. Renal profile is normal. LDH is 1546., Steadily improving, it was as high as 3700 Objective - Vital Signs Vital signs: Vital Signs Temp 98.4 F 06/22/20 08:00 Pulse 79 06/22/20 11:00 Resp 25 H 06/22/20 11:00 BP 135/71 06/22/20 08:00 Pulse Ox 92 L 06/22/20 11:00 Intake & Output 06/21/20 06/22/20 06/22/20 18:59 06:59 18:59 Intake Total 1081.011 991 603.252 Output Total 820 810 450 Balance 261.011 181 153.252 Weight 89 kg 87.7 kg Intake: IV 225 200 105 0.9 225 200 105 Intake, IV Titration 298.011 203 138.252 Amount Midazolam HCl 50 mg In 122.367 103 50 Sodium Chloride 0.9% 40 ml @ 10 MG/HR 10 mls/hr IV .Q5H DANITA Rx#:[id number] fentaNYL (PF). 1,000 mcg 175.644 100 88.252 In Sodium Chloride 0.9% 80 ml @ Per Protocol IV . Q0M DANITA Rx#:[id number] Tube Feeding 448 528 270 Other 110 60 90 Output: Urine 820 810 450 Other: Voiding Method Indwelling Catheter Indwelling Catheter Indwelling Catheter ABP, PAP, CO, CI - Last Documented Arterial Blood Pressure 132/50 - Exam GENERAL EXAM: sedated, intubated, 69-year-old white female, intubated, mechanically ventilated, sedated. Head: Atraumatic, normocephalic. HEENT: PERRLA, EOMI, nonicteric, no neck masses, no JVD, no stridor. Tubes are intact. CHEST: No chest wall deformity. Symmetrical expansion. LUNGS: Symmetrical chest expansion, crackles at the bases CVS: Regular rate and rhythm, normal S1 and S2, no gallops, no murmurs, no rubs ABDOMEN: Soft, nontender. No hepatosplenomegaly, normal bowel sounds, no guarding or rigidity. EXTREMITIES: No clubbing, no edema, no cyanosis, 2+ pulses and upper and lower extremities. MUSCULOSKELETAL: Could not assess, patient is sedated. SPINE: No scoliosis or deformity SKIN: No rashes CENTRAL NERVOUS SYSTEM: Sedated, intubated , could not assess - Labs CBC & Chem 7: 06/22/20 04:15 06/22/20 04:15 Labs: Abnormal Lab Results - Last 24 Hours (Table) 06/21/20 06/21/20 06/22/20 Range/Units 16:51 20:57 00:25 RBC (3.80-5.40) m/uL Hgb (11.4-16.0) gm/dL Hct (34.0-46.0) % Lymphocytes # (1.0-4.8) k/uL D-Dimer (<0.60) mg/L FEU ABG pCO2 (35-45) mmHg ABG pO2 (83-108) mmHg ABG HCO3 (21-25) mmol/L ABG Total CO2 (19-24) mmol/L ABG O2 Saturation (94-97) % Chloride (98-107) mmol/L Carbon Dioxide (22-30) mmol/L BUN (7-17) mg/dL POC Glucose (mg/dL) 173 H 192 H 174 H (75-99) mg/dL Lactate Dehydrogenase (313-618) U/L C-Reactive Protein (<1.0) mg/dL Total Protein (6.3-8.2) g/dL Albumin (3.5-5.0) g/dL 06/22/20 06/22/20 06/22/20 Range/Units 04:15 04:15 04:15 RBC 3.17 L (3.80-5.40) m/uL Hgb 10.0 L (11.4-16.0) gm/dL Hct 29.9 L (34.0-46.0) % Lymphocytes # 0.6 L (1.0-4.8) k/uL D-Dimer 10.74 H (<0.60) mg/L FEU ABG pCO2 (35-45) mmHg ABG pO2 (83-108) mmHg ABG HCO3 (21-25) mmol/L ABG Total CO2 (19-24) mmol/L ABG O2 Saturation (94-97) % Chloride 108 H (98-107) mmol/L Carbon Dioxide 33 H (22-30) mmol/L BUN 46 H (7-17) mg/dL POC Glucose (mg/dL) (75-99) mg/dL Lactate Dehydrogenase 1546 H (313-618) U/L C-Reactive Protein 1.6 H (<1.0) mg/dL Total Protein 5.1 L (6.3-8.2) g/dL Albumin 2.6 L (3.5-5.0) g/dL 06/22/20 06/22/20 06/22/20 Range/Units 04:18 05:16 12:12 RBC (3.80-5.40) m/uL Hgb (11.4-16.0) gm/dL Hct (34.0-46.0) % Lymphocytes # (1.0-4.8) k/uL D-Dimer (<0.60) mg/L FEU ABG pCO2 50 H (35-45) mmHg ABG pO2 66 L (83-108) mmHg ABG HCO3 32 H (21-25) mmol/L ABG Total CO2 34 H (19-24) mmol/L ABG O2 Saturation 91.0 L (94-97) % Chloride (98-107) mmol/L Carbon Dioxide (22-30) mmol/L BUN (7-17) mg/dL POC Glucose (mg/dL) 111 H 221 H (75-99) mg/dL Lactate Dehydrogenase (313-618) U/L C-Reactive Protein (<1.0) mg/dL Total Protein (6.3-8.2) g/dL Albumin (3.5-5.0) g/dL Microbiology - Last 24 Hours (Table) 06/14/20 11:30 CSF Gram Stain - Final Cerebral Spinal Fluid CSF Culture - Final Assessment and Plan Assessment: Impression: Acute hypoxic respiratory failure secondary to COVID-19 pneumonia. Patient was outside the window for BAM, treated initially with Decadron and vitamins as per the ER visit. She did receive since this admission toci, remains on Decadron and vitamin cocktail as well as COVID-19 cocktail. Patient was intubated on 06/18, not requiring any paralytics. New onset atrial fibrillation with RVR now on Xarelto. She was treated with amiodarone, heparin, and transition to Xarelto. Elevated inflammatory markers secondary to above. History of CVA and aphasia. Hypertension. 2 diabetes. Dyslipidemia. History of right-sided mastectomy for breast cancer. Former smoker. Dyslipidemia. Recommendation: Continue ventilatory support. Continue the COVID-19 cocktail. Patient did receive toci. Continue Xarelto. Continue enteral feeding. Continue Versed/sedation. Continue fentanyl. Continue to monitor inflammatory markers. Continue to titrate FiO2 and PEEP down accordingly. Continue Decadron. Continue GI and DVT prophylaxis. Continue to monitor daily x-rays of the chest. Prognosis remains relatively guarded and the patient remains quite ill. Critical care time is over 30 minutes. Time with Patient: Greater than 30
[2020-06-22 15:56] LABS: Glucose,Whole Blood 219 mg/dL (75-99)
[2020-06-22] MEDS: RIVAROXABAN 20 MG TAB PO SCH (16:02)
[2020-06-22 20:13] LABS: Glucose,Whole Blood 177 mg/dL (75-99)
[2020-06-22] MEDS: ATORVASTATIN 10 MG TAB PO SCH (20:30)
[2020-06-22] MEDS: FAMOTIDINE 20 MG TAB PO SCH (20:30)
--- NOTE | 2020-06-22 21:36 | P.PN ---
Subjective Progress Note Date: 06/22/20 Patient was seen for a follow-up. Patient initially seen by Dr. cMallister in consultation on 06/13/2020, and subsequently followed by Dr. Brian Glover. Patient initially brought to the hospital on 06/12/2020, after EMS was sent to her home because she has not been heard from since 06/08/2020. When EMS arriv ed, patient was found to be severely hypoxic with a pO2 of 46%. Patient has previously been diagnosed with Covid-19 infection. She has been seen in the ER several days prior, was worked up and sent home with medication. Neurology was consulted for mental status change and possible aphasia. Initial computed tomography scan of the head was negative. Patient was intubated on 06/18/2020. Came to see patient for a follow-up. Patient currently on fentanyl 1.5 mcg/kg/h and Versed 9 mg/h. Objective - Vital Signs Vital signs: Vital Signs Temp 98.1 F 06/22/20 16:00 Pulse 76 06/22/20 19:00 Resp 22 06/22/20 19:00 BP 132/60 06/22/20 18:00 Pulse Ox 90 L 06/22/20 19:00 Intake & Output 06/22/20 06/22/20 06/23/20 06:59 18:59 06:59 Intake Total 991 1418.542 49.2 Output Total 810 1220 Balance 181 198.542 49.2 Weight 87.7 kg 87.7 kg Intake: IV 200 265 0.9 200 265 Intake, IV Titration 203 269.542 49.2 Amount Midazolam HCl 50 mg In 103 91.1 49.2 Sodium Chloride 0.9% 40 ml @ 10 MG/HR 10 mls/hr IV .Q5H DANITA Rx#:[id number] fentaNYL (PF). 1,000 mcg 100 178.442 In Sodium Chloride 0.9% 80 ml @ Per Protocol IV . Q0M DANTIA Rx#:[id number] Tube Feeding 528 734 Other 60 150 Output: Urine 810 1220 Other: Voiding Method Indwelling Catheter Indwelling Catheter ABP, PAP, CO, CI - Last Documented Arterial Blood Pressure 138/48 - Exam Patient is on mechanical ventilation, breathing synchronously with the ventilator. No obvious seizure activity noted. Pupils are round and reactive to light, oculocephalics with no definitive response. Nails are present. Phase cannot be assessed. Patient not responding to any focal or painful stimuli. Tone is equal in the arms. Patient has not had any sedation holiday today. Reflexes are hypoactive, plantars are flat. No clonus. Patient has moderate peripheral edema. Cerebellar functions, sensations cannot be tested. - Labs CBC & Chem 7: 06/22/20 04:15 06/22/20 04:15 Labs: Abnormal Lab Results - Last 24 Hours (Table) 06/22/20 06/22/20 06/22/20 Range/Units 00:25 04:15 04:15 RBC 3.17 L (3.80-5.40) m/uL Hgb 10.0 L (11.4-16.0) gm/dL Hct 29.9 L (34.0-46.0) % Lymphocytes # 0.6 L (1.0-4.8) k/uL D-Dimer 10.74 H (<0.60) mg/L FEU ABG pCO2 (35-45) mmHg ABG pO2 (83-108) mmHg ABG HCO3 (21-25) mmol/L ABG Total CO2 (19-24) mmol/L ABG O2 Saturation (94-97) % Chloride (98-107) mmol/L Carbon Dioxide (22-30) mmol/L BUN (7-17) mg/dL POC Glucose (mg/dL) 174 H (75-99) mg/dL Lactate Dehydrogenase (313-618) U/L C-Reactive Protein (<1.0) mg/dL Total Protein (6.3-8.2) g/dL Albumin (3.5-5.0) g/dL 06/22/20 06/22/20 06/22/20 Range/Units 04:15 04:18 05:16 RBC (3.80-5.40) m/uL Hgb (11.4-16.0) gm/dL Hct (34.0-46.0) % Lymphocytes # (1.0-4.8) k/uL D-Dimer (<0.60) mg/L FEU ABG pCO2 50 H (35-45) mmHg ABG pO2 66 L (83-108) mmHg ABG HCO3 32 H (21-25) mmol/L ABG Total CO2 34 H (19-24) mmol/L ABG O2 Saturation 91.0 L (94-97) % Chloride 108 H (98-107) mmol/L Carbon Dioxide 33 H (22-30) mmol/L BUN 46 H (7-17) mg/dL POC Glucose (mg/dL) 111 H (75-99) mg/dL Lactate Dehydrogenase 1546 H (313-618) U/L C-Reactive Protein 1.6 H (<1.0) mg/dL Total Protein 5.1 L (6.3-8.2) g/dL Albumin 2.6 L (3.5-5.0) g/dL 06/22/20 06/22/20 06/22/20 Range/Units 12:12 15:53 20:02 RBC (3.80-5.40) m/uL Hgb (11.4-16.0) gm/dL Hct (34.0-46.0) % Lymphocytes # (1.0-4.8) k/uL D-Dimer (<0.60) mg/L FEU ABG pCO2 (35-45) mmHg ABG pO2 (83-108) mmHg ABG HCO3 (21-25) mmol/L ABG Total CO2 (19-24) mmol/L ABG O2 Saturation (94-97) % Chloride (98-107) mmol/L Carbon Dioxide (22-30) mmol/L BUN (7-17) mg/dL POC Glucose (mg/dL) 221 H 219 H 177 H (75-99) mg/dL Lactate Dehydrogenase (313-618) U/L C-Reactive Protein (<1.0) mg/dL Total Protein (6.3-8.2) g/dL Albumin (3.5-5.0) g/dL Assessment and Plan Assessment: Acute encephalopathy likely due to hypoxeimia from pneumonia COVID 19. Also component of underlying metabolic encephalopathy (elevated LFT"s and uncontrolled sugar)---mentation is improving. Acute hypoxic respiratory failure related to acute Covid 19 pneumonia, now on mechanical ventilation. Patient tested positive for Covid 19 in emergency department on 06/07/2020 ?reported aphasia but exam is limited due to above Acute hypernatremia likely due to dehydration--resolved New onset atrial fibrillation, on anticoagulation. Elevated LFT--now normal. Hypertension Hyperlipidemia Diabetes mellitus type 2 with uncontrolled sugar History of breast cancer with history of right mastectomy X tobacco use Plan: CSF study: CSF appears clear, colorless, red blood cells 7, nuclear cells 2, which is normal, CSF glucose is 79 with a slightly elevated and the CSF total protein is 66 which is slightly elevated. This CSF is not suggestive of meningo-encephalitis since normal nucleated cells. An EEG on 06/15/2020 and the was an abnormal routine EEG. The background slowing is suggestive of moderate to severe encephalopathy. There are no focal slowing, perform discharges or seizure on the EEG. Vitamin B12 is 2829 which is high and considered normal. Serum folate level is more than 24 which is considered normal. TSH is 0.263 which is concerning low free T4 is 1.48 and is considered normal. CTA of head and neck is normal. Moderate stenosis of the right proximal ICA. Patient had normal CT scan of head on 06/12/2020 and 06/16/2020. No evidence of an acute stroke. CT head showed possible mastoiditis. Will defer to IM and critical care regarding mastoiditis. 2-D echo shows normal left-ventricular size, wall thickness, EF is greater than 55%. Right ventricle is mild to moderately enlarged. Left atrial size is normal. Patient has new onset atrial fibrillation, now on Xarelto 20 mg daily. We'll defer the rest of the management to the primary team as well as ICU team. Neurology will sign off. Please reconsult neurology if any other concerns.
--- NOTE | 2020-06-22 21:42 | P.PN ---
Subjective Pt could not provide information and it was obtained from staff and medical records This is a 69-year-old patient who follows with Dr. blake . presents with respiratory symptoms including cough for about 2 or 3 weeks. EMS was called out and they found the patient to be hypoxic with 46%. Patient was ventilated with a bag valve and pulse oxygenation improved. He was placed on a nonrebreather and brought here. Pt first placed on BiPAP. And then needed to be intubated. Patient chronic stable medical conditions include diabetes, hypertension, hyperlipidemia, history of breast cancer with right mastectomy. Admitted with acute severe bilateral COVID 19 pneumonia, acute severe hypoxic respiratory failure, acute metabolic encephalopathy, with work up with csf is unremarkable, a fib and RVR pt is currently intubated and mechanical ventilation, PEEP is 15 review of systems: n/a Active Medications Generic Name Dose Route Start Last Admin Trade Name Freq PRN Reason Stop Dose Admin Acetaminophen 650 mg 06/12/20 15:49 06/13/20 21:46 Acetaminophen Suppository 650 Mg Supp RECTAL 650 mg Q4HR PRN Administration Fever And/ Or Mild Pain Artificial Tears 2 drops 06/19/20 13:00 06/22/20 17:53 Artificial Tears-Hypromellose Drops 15 Ml Btl BOTH EYES 2 drops QID DANITA Administration Ascorbic Acid 1,000 mg 06/13/20 09:00 06/22/20 08:04 Ascorbic Acid 500 Mg Tab PO 1,000 mg DAILY DANITA Administration Atorvastatin Calcium 10 mg 06/12/20 21:00 06/22/20 20:30 Atorvastatin 10 Mg Tab PO 10 mg HS DANITA Administration Chlorhexidine Gluconate 15 ml 06/18/20 09:00 06/22/20 20:30 Chlorhexidine Gluconate 15 Ml Cup MUCOUS MEM 15 ml BID DANITA Administration Cholecalciferol 25 mcg 06/12/20 15:45 06/22/20 08:04 Cholecalciferol 25 Mcg (1000 Iu) Tablet PO 25 mcg DAILY DANITA Administration Dexamethasone Sodium Phosphate 6 mg 06/13/20 16:45 06/22/20 08:04 Dexamethasone Sod Phosphate 10 Mg/Ml 1 Ml Vial IV 6 mg DAILY DANITA Administration Famotidine 20 mg 06/22/20 21:00 06/22/20 20:30 Famotidine 20 Mg Tab PO 20 mg Q12HR DANITA Administration Diltiazem HCl 125 mg/ Sodium 125 mls @ 0 mls/hr 06/19/20 04:30 06/19/20 12:00 Chloride IV 0 mls/hr .Q0M DANITA 0 mls/hr Titration Protocol Per Protocol Midazolam HCl 50 mg/ Sodium 50 mls @ 10 mls/hr 06/19/20 07:00 06/22/20 20:10 Chloride IV 9 mg/hr .Q5H DANITA 9 mls/hr Administration Protocol 10 MG/HR Fentanyl Citrate 1,000 mcg/ 100 mls @ 0 mls/hr 06/19/20 07:45 06/22/20 15:59 Sodium Chloride IV 1.5 mcg/kg/hr .Q0M DANITA 12.915 mls/hr Administration Protocol Per Protocol Insulin Aspart 0 unit 06/19/20 12:00 06/22/20 20:30 Insulin Aspart (Novolog) 100 Unit/Ml Vial SQ 4 unit Q4H DANITA Administration Protocol Insulin Aspart 10 unit 06/21/20 08:00 06/22/20 20:30 Insulin Aspart (Novolog) 100 Unit/Ml Vial SQ 10 unit Q4H DANITA Administration Insulin Detemir 46 unit 06/21/20 07:00 06/22/20 08:03 Insulin Detemir (Levemir) 100 Unit/Ml Syr SQ 46 unit DAILY@0700 DANITA Administration Miscellaneous Information 1 each 06/18/20 22:38 Potassium Replacement Protocol 1 Each Misc MISCELLANE DAILY PRN Per Protocol Protocol Miscellaneous Information 1 each 06/18/20 22:39 Magnesium Replacement Protocol 1 Each Misc MISCELLANE DAILY PRN Per Protocol Protocol Naloxone HCl 0.2 mg 06/12/20 15:49 Naloxone 0.4 Mg/Ml 1 Ml Vial IV Q2M PRN Opioid Reversal Rivaroxaban 20 mg 06/21/20 21:00 06/22/20 16:02 Rivaroxaban 20 Mg Tab PO 20 mg W/SUPPER DANITA Administration Sertraline HCl 50 mg 06/13/20 09:00 06/22/20 08:04 Sertraline 50 Mg Tab PO 50 mg DAILY DANITA Administration Sodium Chloride 10 ml 06/16/20 15:14 Sodium Chloride 0.9% Flush 10 Ml Syringe IV Q4HR PRN PICC Line Sodium Chloride 10 ml 06/23/20 09:00 Sodium Chloride 0.9% Flush 10 Ml Syringe IV WEEKLY DANITA Sodium Chloride 20 ml 06/16/20 15:14 Sodium Chloride 0.9% Flush 10 Ml Syringe IV Q4HR PRN PICC Line Objective - Vital Signs Vital signs: Vital Signs Temp 98.4 F 06/22/20 08:00 Pulse 79 06/22/20 11:00 Resp 25 H 06/22/20 11:00 BP 135/71 06/22/20 08:00 Pulse Ox 92 L 06/22/20 11:00 Intake & Output 06/21/20 06/22/20 06/22/20 18:59 06:59 18:59 Intake Total 1081.011 991 603.252 Output Total 820 810 450 Balance 261.011 181 153.252 Weight 89 kg 87.7 kg Intake: IV 225 200 105 0.9 225 200 105 Intake, IV Titration 298.011 203 138.252 Amount Midazolam HCl 50 mg In 122.367 103 50 Sodium Chloride 0.9% 40 ml @ 10 MG/HR 10 mls/hr IV .Q5H DANITA Rx#:[id number] fentaNYL (PF). 1,000 mcg 175.644 100 88.252 In Sodium Chloride 0.9% 80 ml @ Per Protocol IV . Q0M DANITA Rx#:[id number] Tube Feeding 448 528 270 Other 110 60 90 Output: Urine 820 810 450 Other: Voiding Method Indwelling Catheter Indwelling Catheter Indwelling Catheter ABP, PAP, CO, CI - Last Documented Arterial Blood Pressure 132/50 - Exam -GENERAL: The patient is intubated and sedated HEENT: Pupils are round and equally reacting to light. EOMI. No scleral icterus. No conjunctival pallor. Normocephalic, atraumatic. No pharyngeal erythema. No thyromegaly. CARDIOVASCULAR: S1 and S2 present. No murmurs, rubs, or gallops. -PULMONARY: Chest is clear to auscultation, bilateral crepitation ABDOMEN: Soft, nontender, nondistended, normoactive bowel sounds. No palpable organomegaly. MUSCULOSKELETAL: No joint swelling or deformity. EXTREMITIES: No cyanosis, clubbing, or pedal edema. NEUROLOGICAL: Gross neurological examination did not reveal any focal deficits. SKIN: No rashes. no petechiae. - Labs CBC & Chem 7: 06/22/20 04:15 06/22/20 04:15 Labs: Abnormal Lab Results - Last 24 Hours (Table) 06/21/20 06/21/20 06/22/20 Range/Units 16:51 20:57 00:25 RBC (3.80-5.40) m/uL Hgb (11.4-16.0) gm/dL Hct (34.0-46.0) % Lymphocytes # (1.0-4.8) k/uL D-Dimer (<0.60) mg/L FEU ABG pCO2 (35-45) mmHg ABG pO2 (83-108) mmHg ABG HCO3 (21-25) mmol/L ABG Total CO2 (19-24) mmol/L ABG O2 Saturation (94-97) % Chloride (98-107) mmol/L Carbon Dioxide (22-30) mmol/L BUN (7-17) mg/dL POC Glucose (mg/dL) 173 H 192 H 174 H (75-99) mg/dL Lactate Dehydrogenase (313-618) U/L C-Reactive Protein (<1.0) mg/dL Total Protein (6.3-8.2) g/dL Albumin (3.5-5.0) g/dL 06/22/20 06/22/20 06/22/20 Range/Units 04:15 04:15 04:15 RBC 3.17 L (3.80-5.40) m/uL Hgb 10.0 L (11.4-16.0) gm/dL Hct 29.9 L (34.0-46.0) % Lymphocytes # 0.6 L (1.0-4.8) k/uL D-Dimer 10.74 H (<0.60) mg/L FEU ABG pCO2 (35-45) mmHg ABG pO2 (83-108) mmHg ABG HCO3 (21-25) mmol/L ABG Total CO2 (19-24) mmol/L ABG O2 Saturation (94-97) % Chloride 108 H (98-107) mmol/L Carbon Dioxide 33 H (22-30) mmol/L BUN 46 H (7-17) mg/dL POC Glucose (mg/dL) (75-99) mg/dL Lactate Dehydrogenase 1546 H (313-618) U/L C-Reactive Protein 1.6 H (<1.0) mg/dL Total Protein 5.1 L (6.3-8.2) g/dL Albumin 2.6 L (3.5-5.0) g/dL 06/22/20 06/22/20 06/22/20 Range/Units 04:18 05:16 12:12 RBC (3.80-5.40) m/uL Hgb (11.4-16.0) gm/dL Hct (34.0-46.0) % Lymphocytes # (1.0-4.8) k/uL D-Dimer (<0.60) mg/L FEU ABG pCO2 50 H (35-45) mmHg ABG pO2 66 L (83-108) mmHg ABG HCO3 32 H (21-25) mmol/L ABG Total CO2 34 H (19-24) mmol/L ABG O2 Saturation 91.0 L (94-97) % Chloride (98-107) mmol/L Carbon Dioxide (22-30) mmol/L BUN (7-17) mg/dL POC Glucose (mg/dL) 111 H 221 H (75-99) mg/dL Lactate Dehydrogenase (313-618) U/L C-Reactive Protein (<1.0) mg/dL Total Protein (6.3-8.2) g/dL Albumin (3.5-5.0) g/dL Microbiology - Last 24 Hours (Table) 06/14/20 11:30 CSF Gram Stain - Final Cerebral Spinal Fluid CSF Culture - Final Assessment and Plan Assessment: -Acute severe bilateral COVID 19 pneumonia, diagnosed 5 days before admission, with symptoms present 2-3 weeks prior to that.-Not improving -Acute severe hypoxic respiratory failure, secondary to COVID 19 slow to respond -Acute delirium and acute metabolic encephalopathy from COVID 19 pneumonia -Diabetes mellitus type 2 on oral hypoglycemic, uncontrolled with hyperglycemia secondary to steroids -Essential hypertension -Diabetic peripheral neuropathy -Hyperlipidemia -Patient underwent lumbar puncture. CSF benign. -Significant hypernatremia with hyperchloremia.-Corrected -Paroxysmal atrial fibrillation with rapid ventricle [id number] rhythm Plan: This is a pleasant 69 years old female who presents with Covid pneumonia and hypoxia. Continue with steroids, IV fluids, continue with vitamin C, vitamin D and zinc. Continue with Lovenox and monitor d-dimer. Neurology and Pulmonary/critical care team on the case and follow-up with a recommendation. Pt is on vitamin c, vitamin D and zinc, also on dexamethasone, Xarelto 20 mg daily. DVT and GI prophylaxis
[2020-06-23] MEDS: MIDAZOLAM HCL 50 MG in SODIUM CHLORIDE 0.9% 40 ML IV SCH ×3 (00:06→09:05)
[2020-06-23 00:36] LABS: Glucose,Whole Blood 159 mg/dL (75-99)
[2020-06-23] MEDS: fentaNYL (PF). 1,000 MCG in SODIUM CHLORIDE 0.9% 80 ML IV SCH ×4 (00:56→18:43)
[2020-06-23] MEDS: INSULIN ASPART (NovoLOG) 100 UNIT/ML VIAL SQ SCH ×14 (01:05→23:45)
[2020-06-23 04:29] LABS: Glucose,Whole Blood 131 mg/dL (75-99)
[2020-06-23 04:47] LABS: Basophils # (A) 0.1 k/uL (0-0.2); Basophils % (A) 1 %; Eosinophils # (A) 0.2 k/uL (0-0.7); Eosinophils % (A) 2 %; HCT 30.4 % (34.0-46.0); Lymphocytes # (A) 0.7 k/uL (1.0-4.8); Lymphocytes % (A) 7 %; MCH 30.7 pg (25.0-35.0); MCHC 32.8 g/dL (31.0-37.0); MCV 93.6 fL (80.0-100.0); Mean Platelet Volume 9.4; Monocytes # (A) 0.2 k/uL (0-1.0); Monocytes % (A) 2 %; Neutrophils # (A) 8.6 k/uL (1.3-7.7); Neutrophils % (A) 88 %; Platelet Count 208 k/uL (150-450); RBC 3.25 m/uL (3.80-5.40); RDW 14.6 % (11.5-15.5); WBC 9.8 k/uL (3.8-10.6)
[2020-06-23 05:03] LABS: ALT 35 U/L (4-34); AST 46 U/L (14-36); African American GFR (CKD) >90 (>60 ml/min/1.73 sqM); Albumin 2.7 g/dL (3.5-5.0); Alkaline Phosphatase 55 U/L (38-126); Anion Gap 1 mmol/L; Blood Urea Nitrogen 44 mg/dL (7-17); C Reactive Protein 2.7 mg/dL (<1.0); Calcium 8.7 mg/dL (8.4-10.2); Carbon Dioxide 32 mmol/L (22-30); Chloride 107 mmol/L (98-107); Glucose 121 mg/dL (74-99); LDH 1628 U/L (313-618); Non-African American GFR(CKD) >90 (>60 ml/min/1.73 sqM); Potassium 4.6 mmol/L (3.5-5.1); Sodium 140 mmol/L (137-145); Total Bilirubin 0.6 mg/dL (0.2-1.3); Total Protein 5.3 g/dL (6.3-8.2)
[2020-06-23 05:20] LABS: ABG Base Excess 7.1 mmol/L; ABG HCO3 31 mmol/L (21-25); ABG Oxygen Saturation 91.1 % (94-97); ABG PCO2 46 mmHg (35-45); ABG PH 7.44 (7.35-7.45); ABG PO2 61 mmHg (83-108); ABG TCO2 33 mmol/L (19-24); Allen Test Performed? Yes
[2020-06-23 09:35] LABS: Glucose,Whole Blood 127 mg/dL (75-99)
[2020-06-23] MEDS: CHOLECALCIFEROL 25 MCG (1000 IU) TABLET PO SCH (09:45)
[2020-06-23] MEDS: CHLORHEXIDINE GLUCONATE 15 ML CUP MUCOUS MEM SCH ×2 (09:45→20:09)
[2020-06-23] MEDS: ASCORBIC ACID 500 MG TAB PO SCH (09:45)
[2020-06-23] MEDS: DEXAMETHASONE SOD PHOSPHATE 10 MG/ML 1 ML VIAL IV SCH (09:46)
[2020-06-23] MEDS: INSULIN DETEMIR (LEVEMIR) 100 UNIT/ML SYR SQ SCH (09:46)
[2020-06-23] MEDS: FAMOTIDINE 20 MG TAB PO SCH ×2 (09:51→20:08)
[2020-06-23] MEDS: SERTRALINE 50 MG TAB PO SCH (09:51)
[2020-06-23] MEDS: ARTIFICIAL TEARS-HYPROMELLOSE DROPS 15 ML BTL BOTH EYES SCH ×4 (09:52→22:06)
--- NOTE | 2020-06-23 10:03 | XR ---
EXAMINATION TYPE: XR chest 1V portable DATE OF EXAM: 06/23/2020 COMPARISON: Chest x-ray 06/22/2020 HISTORY: Intubated TECHNIQUE: Single frontal view of the chest is obtained. FINDINGS: Endotracheal tube, orogastric tube, left-sided PICC line are again noted and overlying angel ropriate positions. Cardiac mediastinal silhouette is stable. No evident pneumothorax or sizable effu christina. Interstitial, mixed airspace disease changes are present bilaterally as on prior exam. IMPRESSION: Correlate for pneumonia, edema, ARDS.
[2020-06-23] MEDS ORDERED: MIDAZOLAM HCL 200 MG in SODIUM CHLORIDE 0.9% 60 ML IV SCH (10:30)
--- NOTE | 2020-06-23 12:15 | P.PN ---
Subjective Progress Note Date: 06/23/20 Principal diagnosis: Acute hypoxic failure secondary to COVID-19 pneumonia. 69-year-old white female patient who presented to the emergency department on 06/12/2020 at 1400 in the afternoon with complaints of shortness of breath, and her first onset of symptoms was approximately 2-3 weeks ago. She tested positive for COVID 19 on 06/07/2020. Patient was seen in the emergency department at that time, and was having symptoms of fatigue, shortness of breath and cough. She does have multiple comorbidities including hypertension, diabetes mellitus, dyslipidemia, history of breast cancer, patient is a former smoker. Was outside the window for monoclonal antibody, she was sent home on Decadron, and vitamins. Chest x-ray at that time showed interstitial infiltrates. Patient returned with worsening symptoms, chest x-ray on the 2020 showed interval bilateral diffuse infiltrates. In addition patient was confused, on arrival of the EMS to the scene patient was severely hypoxemic with a pulse ox of only 46%. She was bagged valve ventilated with improvement in her oxygen, she was placed on BiPAP support. Brain CT showed no acute intracranial abnormality. Angiography CT showed no acute abnormality of the head/neck, and a moderate stenosis of the right proximal ICA. CBC was positive for lymphopenia with lymphocyte count 0.6, d-dimer was 1.36, sodium is 143, potassium is 3.9, chloride is 108, CO2 22, BUN is 50, creatinine is 1, glucose level was 321, plasma lactic acid is 1.3, AST was 84, ALT was 31, alk phos was 50, troponin was 0.104, CRP was 334. Patient was started on IV Decadron in the emergency department, she remains on BiPAP support, currently at pressures of 12 and 6 and FiO2 100%, she appears to have increased work of breathing, she is not able to answer questions related to dyspnea, repeat blood gas was done showing pO2 of 68, pCO2 45, pH of 7.39 and subsequently her BiPAP settings were adjusted to 14/7 and FiO2 100%, patient is awaiting a bed in the intensive care unit, she is awake and alert, she did answer some simple questions yes or no for me while on BiPAP support, we'll start the patient on IL-6 MAB, Tocilizumab. We'll continue to closely follow her clinical course, continues to deteriorate patient required intubation and placement on mechanical ventilatory supp On today's evaluation of 06/14/2020 the patient is being seen for a follow-up regarding acute hypoxic respiratory failure and COVID 19 pneumonia. The patient was status post positive on 06/07/2020 and the patient was symptomatic prior to that. The patient presented with hypoxic respiratory failure and the patient was placed on a BiPAP which is currently at the pressure of 14/7 cm of water and FiO2 of 900%. Chest x-ray showing bilateral patchy by troponin infiltrates consistent with pneumonia. The patient was started on steroids and Tocilizumab was ordered. The patient is having increased shortness of breath even while on the BiPAP. The patient is quite dyspneic even while on the BiPAP and is unable to complete full sentences. Blood gases from yesterday was noted. CT angiogram of the head and neck showed moderate stenosis of the right proximal ICA. CAT scan of the brain was negative., CRP of 356, troponin was 0.19 and the patient's d-dimer was 2.13. The patient is currently on Decadron 6 mg IV every 24 hours. The patient is on Lovenox 40 mg subcu every 24 hours. The patient on Levemir insulin 20 units daily at bedtime that was started yesterday the patient will be taken off the insulin drip. Currently the patient is also on various hypertensive medications including Zestoretic and Kl clonidine patch and Norvasc. neurologically, the patient is still quite somnolent. She is moving all 4 extremities. No neck stiffness. This encephalopathy is probably related to Covid 19 infection. Neuro is also on the case. His blood work, the sodium level is at 154 with a BUN of 61 and creatinine of 0.9. The patient on IV fluid and currently receiving 0.9 at the rate of 100 mL an hour. On 06/15/2020, the patient is being seen in follow-up in the intensive care unit. This is a case of 69-year-old female patient with Covid associated pneumonia. The patient remains in the emergency department awaiting her bed in the ICU. Currently she is on a BiPAP at a pressure of 14/7 cm of water with an FiO2 of 100%. The patient is quite synchronous and tolerated the BiPAP treatment. Her current tidal volume generated is around 840 mL with a respiratory rate of 29 and a minute ventilation of 23. Chest x-ray from today has not been done and this is supposed to be repeated. The chest x-ray from yesterday was showing diffuse bilaterally pulmonary infiltrates more so in the left perihilar area. No new blood gases. D-dimer is today at 34 and the CRP level is at 67. LDH is still pending for now. Neurologically, the patient is still lethargic and somnolent and encephalopathic. She is on Precedex running at 0.5 mcg/kg per minute. Lumbar puncture was done yesterday and the patient was found to have a CSF RBC of 7, nucleated cells were only a 2, glucose was 79 and the protein was slightly elevated at 66. This is not consistent with bacterial meningitis. It may be consistent with viral encephalopathy. Gram st ain of the CSF was negative. Cultures are also negative. I would say clinically she is essentially unchanged. She is more comfortable while being on Precedex. She is hemodynamically stable and she is afebrile. She is still receiving IV fluids in the form of D5 half-normal saline at the rate of 1 25 mL an hour. She is currently off the insulin drip. Her blood sugar is at 128 and the patient is on Levemir insulin 20 units daily at bedtime along with a sliding scale coverage. The patient's renal function currently is stable with a BUN of 63 and a creatinine of 0.8. Sodium level was improving and his sodium level was on the decline it was already down to 151. 06/16/2020, the patient remains on a BiPAP in the emergency department a pressure of 14/7 and FiO2 is currently at 80% and her current pulse ox is around 96%. Her generated tidal volume is around 816 with a respiratory rate of 30 and a minute volume of 25 L per minute. I took her off the Precedex yesterday the patient was quite lethargic. This morning, she is more arousable. She is extremely weak. She is following some simple commands. She is wiggling her toes and moving her arms upon demand. She cannot hold a conversation as the patient is very much BiPAP dependent at this point in time. She easily desaturates once she is off the BiPAP. She is hemodynamically stable for now. The chest x-ray showing bilateral pulmonary infiltrates, slightly improved compared to yesterday. In terms of her blood work, the patient's blood sugars at 250. She is currently on D5 half-normal saline at the rate of 150 mL an hour. Her sodium level is improved and is down to 145 and a BUN is 36 with a creatinine of 0.7. Her CRP is down to 41. Her LDH level is up to 3339. Rest of the blood work and electrodes are all within normal limits and as mentioned the sodium level is improved and is down to 145. Her lumbar puncture was done and the findings are essentially related to Covid 19 encephalopathy. Case was discussed with neurology. As for the blood sugars, the patient's blood sugars are running in the mid 200s and the patient is on a sliding scale coverage. No major edema in lower extremities. Cardiac rhythm is sinus for now. 06/17/2020, the patient is being seen in follow-up. Unfortunately, she has remained in the emergency and she hasn't been able to find her way up to the ICU. I have her today on a BiPAP at a pressure of 16/8 cm of water with an FiO2 of 100%. The patient was doing well throughout the night and earlier this morning she became significantly more short of breath, hypoxic and tachycardic. Currently she is struggling with her breathing. She is using excessive muscle breathing even while being on a BiPAP. She is able to generate adequate tidal volumes of around 800 mL and her respiratory rate is in the mid 40s. She is tachycardic with a heart rate of 150, sinus. She is unable to speak. She is anxious. She was given a total of 4 mg of morphine which helped her with the breathlessness and shortness of breath. She is awake and arousable and she is moving all 4 extremities. As mentioned earlier, she is a case of COVID-19 related pneumonia. The patient was treated with a combination of treatment and the patient was given Decadron 6 mg IV every 24 hours. The patient also received Tocilizumab 50 mg IV on 06/13/2020. She was having some degree of encephalopathy that was thought to be a viral encephalopathy in the lumbar puncture was done and it showed some mild elevation of the protein. Otherwise negative. Repeat chest x-ray from today has not been completed. This is in progress. Cardiac rhythm is sinus. The patient is likely headed to intubation/ mechanical ventilation. 06/18/2020, the patient is currently in the intensive care unit. She seems much more comfortable while being on Precedex is running at 0.7 mcg/kg per minute. She is very evasive ventilator and the patient is currently on a pressure of 16/8 with an FiO2 of 100%. She was struggling with her breathing yesterday and she seems to be essentially the same as yesterday without any interval improvement.. Her current respiratory rate is in the order of mid 30s and she is able to generate adequate amount of tidal volume. She is unresponsive. She is on Precedex. Her breathing is unlabored. She is using accessory muscles of breathing. She has less tachycardic to yesterday. She seems to be also less anxious. She is taking morphine on an as-needed basis for shortness of breath and anxiety. On today's blood gas, pH is 7.48 with a pCO2 of 36 and pO2 of 51. Her current pulse ox is 91%. She remains on Decadron 6 mg IV every 24 hours. The patient also received Tocilizumab 720 mg iv. The patient remains also on anticoagulation on Lovenox 45 mg subcu she will 12 hours. In terms of the inflammatory markers, the patient has a d-dimer of above 34, and the patient has a LDH level of 3728 and the patient is a CRP of 29. The inflammatory markers continued to be quite elevated and essentially unchanged compared to yesterday. She is afebrile for now and she is hemodynamically stable on no pressors. She is receiving nutrition via TPN and the patient is decline in her left upper extremity. CSF cultures have been negative. No neck stiffness. Neurology is also on the case and the working diagnosis is COVID-19 related encephalopathy. 06/19/2020 on seeing the patient in the intensive care unit. Noted the patient was brought in to the ICU yesterday and she became progressively more confused, tachypneic, tachycardic and hypoxic and she was failing also BiPAP which she was able to tolerate for a few days. At that point, the decision was to intubate the patient placed on mechanical ventilator. Following intubation, the patient was placed on sedation with propofol and currently propofol is running at 40 mg/kg/m. She also had to be paralyzed and the patient is currently on Nimbex running at 2 mcg/kg per minute. She was taken off the Precedex. For now, she is well sedated and paralyzed on a mechanical ventilator and she is currently on assist control mode rate of 28 with a tidal volume of 400 and FiO2 of 70% with a PEEP of 15. At peak airway pressure on the mechanical ventilator is 33. Static pressure is 31. No orotracheal secretions. The chest x-ray from today showing adequate positioning of the orotracheal tube. The patient also has a orogastric tube in place. The patient had diffuse breath and pulmonary infiltrates consistent with COVID-19 related pneumonia/ARDS. Her d-dimer was elevated at 35 and the patient was receiving 45 mg of subcu Lovenox every 12 hours. LDH from today is 2544 and a CRP level is at 3.4 and both are elevated. Most recent blood gases from this morning shows a pH of 7.39 with a pCO2 of 47 and pO2 of 79. The patient remains on steroids and she is receiving Decadron 6 g IV every 24 hours. Earlier during the shift, the patient became hypotensive and she had to be placed on pressors and the patient is currently on norepinephrine infusion running at 0.06 mcg/kg per minute. Earlier this morning at around 3:15 AM, the patient also went into new onset atrial fibrillation with rapid ventricular response. She was given amiodarone bolus 150 mg IV and following that she was given a amiodarone at 1 mg per minute for loading protocol. There was no impact on her heart rate. The patient was also given Cardizem, bolus initially at a dose of 5 mg IV and following that started on a maintenance of 10 mg an hour. She is currently still having atrial fibrillation and her heart rate is in the 130 to 140 range. Blood pressure is soft and the patient is stranding thousand becoming hypotensive. Urine output is order of early cc an hour. IV fluids are running at 20 mL an hour and the patient is on enteral feeding for nutritional support in the form of vital high protein at the rate of 20 mL an hour and the goal is at 38. In terms of her CSF cultures, if very much came back negative. The patient had over the encephalopathy prior to her getting intubated. The triglyceride at baseline prior to her initiation of propofol infusion was 594. I am inclined to switching this patient alternatives sedation. She was on Precedex however this was not effective in combination with fentanyl. I will consider adding Versed infusion. 06/20/2020, the patient is intubated on a mechanical ventilator and she is currently in the intensive care unit. After being on a BiPAP for several days, the patient decompensated. She presented to us with COVID-19 related pneumonia and encephalopathy. She was on Precedex and BiPAP for extended period of time and ultimately she failed and she was intubated and placed on a mechanical ventilator. Propofol was discontinued as the patient was having an elevated triglyceride level and the patient is currently on Versed running at 5 mg an hour and fentanyl running at 1 mcg/kg per minute. The patient is currently off paralytics. He was discontinued yesterday. In terms of treatment, the patient remains on assist control mode of mechanical ventilation. She is on a tidal volume of 400 with an FiO2 of 70% and a PEEP is at 15 with a respiratory rate of 28 and this is volume cycle assist-control mode. The blood gas showed a pH of 7.39 with a pCO2 50 and pO2 of 64. The chest x-ray from today is showing diffuse interstitial infiltrates bilaterally. Overall findings are essentially unchanged compared to yesterday. Orotracheal tube remains in a good location. The peak anesthetic pressures are 31 and 30 respectively. The patient's lightheadedness a mechanical ventilator and she is currently off paralytics. Meanwhile, at LDH level is at 2253 which is comparable to yesterday and his CRP level from yesterday was at 3.4. Her d-dimer level is at 10.3. She did have a bout of atrial fibrillation yesterday with rapid ventricular response. She was treated with a combination of amiodarone drip and a Cardizem drip. Cardizem drip has been discontinued. Amiodarone drip is running at 0.5 mg per minute and the patient's cardiac rhythm is back in 2 sinus tachycardia and she converted back to sinus yesterday morning. The patient is also on IV heparin infusion. Recommendations are to discontinue the amiodarone for now and keep the IV hepar in for another 24 hours. In terms of hemodynamics, the patient has been off pressors since yesterday. She was running only a low dose of norepinephrine infusion. Currently is on IV fluids running at the rate of 20 mL an hour and the net fluid balance has been +1.6 L since yesterday. Remains on Decadron 6 mg IV every 24 hours. Remains on IV heparin for now. Levemir insulin 36 units for blood sugar control along with NovoLog Scale coverage. Blood sugars continued to be quite elevated. NovoLog 10 units 4 times a day will be also added in combination with sliding scale coverage. On 06/21/2020 patient seen in intensive care unit, patient remains intubated, sedated on assist control mode of ventilation with a rate of 28, tidal vitamins 400, FiO2 of 70%, and PEEP of 15, this morning's blood gas shows a pO2 of 77, pCO2 48, and pH of 7.42, patient's chest x-ray today shows ET tube, NG tube, right-sided PICC line in appropriate positions, bilateral airspace disease similar to the prior exam, no evident pneumothorax or sizable pleural effusion. In terms of drips, patient is on 0.9 normal saline at a rate of 20 ML per hour, she is on Versed at 11 mg per hour, and fentanyl drip is at 1.5 mics per kilo per minute, to prevent has been off in view of elevated triglyceride levels, she is receiving nutritional support in the form of vital high protein at a rate of 38 which is goal with standard water flushes. The rest of the blood work has been reviewed today showing white blood cell, 9.5, hemoglobin of 9.9, platelet count is 214, d-dimer is 5.35 which is improved from 10.39 on yesterday's labs, sodium is 142, potassium is 4.3, chloride is 110, CO2 30, BUN of 48, creatinine 0.74, LFTs are improving, AST and ALT are 45 and 42 respectively, alkaline phosphatase is within normal range at 86 today which is also improved, LDH is trending down, at 1816 on today's labs, CRP is 1.8. In terms of therapy patient is currently on Decadron at 6 mg daily IV, she remains off paralytics, she did have a run of A. fib with RVR for which she had Cardizem drip started, she has not had recurrence of A. fib RVR, she was on heparin infusion which we can switch back over to Lovenox at intermediate doses in view of improving d-dimer and no recurrence of arrhythmias. Echocardiogram showed preserved LV function of 55%, mild MR, and mild TR, no evidence of pulmonary hypertension moderate en largement of the right ventricle. Her blood sugar control has improved, and patient is calm combination of Levemir 46 units daily in addition to NovoLog sliding scale and 10 units of additional NovoLog in addition to sliding scale 4 times daily. Her CSF cultures have shown no growth thus far, cats, mild elevation of temperature, but low-grade fever, with a T-max of 99.8 Patient was reevaluated today on 06/22/2020, remains intubated and mechanically ventilated. Her assist-control rate is 28, tidal volume is 400, FiO2 is 55%, PEEP is 15. Peak airway pressure is 29 static pressures 27. ABG this morning showed a pO2 of 66 pCO2 of 50 pH of 7.42. Remains on Versed at 9 mg per hour, and fentanyl at 1.5 mcg/kg/h. Patient is also on IV fluid at 0.9 normal saline, receiving tube feeding at 58 ML per hour. Patient was switched to Xarelto. From Lovenox. CBC is relatively normal. Her d-dimer is 10.74. Electrolytes are normal. Renal profile is normal. LDH is 1546., Steadily improving, it was as high as 3700 Patient was reevaluated today on 06/23/2020, remains in the ICU, intubated and mechanically ventilated. She is on assist control rate of 28 tidal volume is 400 FiO2 50% PEEP remains 15. I did cut down the PEEP to 12. ABG showed a pO2 of 61 pCO2 of 46 pH of 7.44. Patient remains on Versed and fentanyl, not requiring any Nimbex, Versed is 10 mg per hour, and fentanyl at 1.5 mcg/kg/h. She is on enteral feeding using vital hP and 59/59. Patient is hemodynamically stable, she is in sinus rhythm, peak airway pressure is 28, and static pressure is 17. Chest x-ray continues to show bilateral of disease consistent with COVID-19 pneumonia. Basic metabolic profile is normal renal profile is normal LDH is 1628. C-reactive protein is 2.7 BC is relatively normal. Spinal fluid cultures have been negative from a week ago Objective - Vital Signs Vital signs: Vital Signs Temp 98.3 F 06/23/20 04:00 Pulse 89 06/23/20 07:00 Resp 28 H 06/23/20 07:00 BP 121/58 06/23/20 07:00 Pulse Ox 89 L 06/23/20 07:00 Intake & Output 06/22/20 06/23/20 06/23/20 18:59 06:59 18:59 Intake Total 0217.951 8106.6 186.627 Output Total 1220 800 150 Balance 198.542 452.6 36.627 Weight 87.7 kg 89.2 kg Intake: IV 265 220 20 0.9 265 220 20 Intake, IV Titration 269.542 234.6 107.627 Amount Midazolam HCl 50 mg In 91.1 134.6 28.2 Sodium Chloride 0.9% 40 ml @ 10 MG/HR 10 mls/hr IV .Q5H DANITA Rx#:[id number] fentaNYL (PF). 1,000 mcg 178.442 100 79.427 In Sodium Chloride 0.9% 80 ml @ Per Protocol IV . Q0M DANITA Rx#:[id number] Tube Feeding 734 708 59 Other 150 90 Output: Urine 1220 800 150 Other: Voiding Method Indwelling Catheter Indwelling Catheter ABP, PAP, CO, CI - Last Documented Arterial Blood Pressure 122/49 - Exam GENERAL EXAM: sedated, intubated, 69-year-old white female, intubated, mechanically ventilated, sedated. Head: Atraumatic, normocephalic. HEENT: PERRLA, EOMI, nonicteric, no neck masses, no JVD, no stridor. Tubes are intact. CHEST: No chest wall deformity. Symmetrical expansion. LUNGS: Symmetrical chest expansion, crackles at the bases CVS: Regular rate and rhythm, normal S1 and S2, no gallops, no murmurs, no rubs ABDOMEN: Soft, nontender. No hepatosplenomegaly, normal bowel sounds, no guarding or rigidity. EXTREMITIES: No clubbing, no edema, no cyanosis, 2+ pulses and upper and lower extremities. MUSCULOSKELETAL: Could not assess, patient is sedated. SPINE: No scoliosis or deformity SKIN: No rashes CENTRAL NERVOUS SYSTEM: Sedated, intubated , could not assess - Labs CBC & Chem 7: 06/23/20 04:20 06/23/20 04:20 Labs: Abnormal Lab Results - Last 24 Hours (Table) 06/22/20 06/22/20 06/22/20 Range/Units 12:12 15:53 20:02 RBC (3.80-5.40) m/uL Hgb (11.4-16.0) gm/dL Hct (34.0-46.0) % Neutrophils # (1.3-7.7) k/uL Lymphocytes # (1.0-4.8) k/uL D-Dimer (<0.60) mg/L FEU ABG pCO2 (35-45) mmHg ABG pO2 (83-108) mmHg ABG HCO3 (21-25) mmol/L ABG Total CO2 (19-24) mmol/L ABG O2 Saturation (94-97) % Carbon Dioxide (22-30) mmol/L BUN (7-17) mg/dL Creatinine (0.52-1.04) mg/dL Glucose (74-99) mg/dL POC Glucose (mg/dL) 221 H 219 H 177 H (75-99) mg/dL AST (14-36) U/L ALT (4-34) U/L Lactate Dehydrogenase (313-618) U/L C-Reactive Protein (<1.0) mg/dL Total Protein (6.3-8.2) g/dL Albumin (3.5-5.0) g/dL 06/23/20 06/23/20 06/23/20 Range/Units 00:35 04:20 04:20 RBC 3.25 L (3.80-5.40) m/uL Hgb 10.0 L (11.4-16.0) gm/dL Hct 30.4 L (34.0-46.0) % Neutrophils # 8.6 H (1.3-7.7) k/uL Lymphocytes # 0.7 L (1.0-4.8) k/uL D-Dimer (<0.60) mg/L FEU ABG pCO2 (35-45) mmHg ABG pO2 (83-108) mmHg ABG HCO3 (21-25) mmol/L ABG Total CO2 (19-24) mmol/L ABG O2 Saturation (94-97) % Carbon Dioxide 32 H (22-30) mmol/L BUN 44 H (7-17) mg/dL Creatinine 0.49 L (0.52-1.04) mg/dL Glucose 121 H (74-99) mg/dL POC Glucose (mg/dL) 159 H (75-99) mg/dL AST 46 H (14-36) U/L ALT 35 H (4-34) U/L Lactate Dehydrogenase 1628 H (313-618) U/L C-Reactive Protein 2.7 H (<1.0) mg/dL Total Protein 5.3 L (6.3-8.2) g/dL Albumin 2.7 L (3.5-5.0) g/dL 06/23/20 06/23/20 06/23/20 Range/Units 04:28 05:15 05:15 RBC (3.80-5.40) m/uL Hgb (11.4-16.0) gm/dL Hct (34.0-46.0) % Neutrophils # (1.3-7.7) k/uL Lymphocytes # (1.0-4.8) k/uL D-Dimer 15.47 H (<0.60) mg/L FEU ABG pCO2 46 H (35-45) mmHg ABG pO2 61 L (83-108) mmHg ABG HCO3 31 H (21-25) mmol/L ABG Total CO2 33 H (19-24) mmol/L ABG O2 Saturation 91.1 L (94-97) % Carbon Dioxide (22-30) mmol/L BUN (7-17) mg/dL Creatinine (0.52-1.04) mg/dL Glucose (74-99) mg/dL POC Glucose (mg/dL) 131 H (75-99) mg/dL AST (14-36) U/L ALT (4-34) U/L Lactate Dehydrogenase (313-618) U/L C-Reactive Protein (<1.0) mg/dL Total Protein (6.3-8.2) g/dL Albumin (3.5-5.0) g/dL 06/23/20 Range/Units 09:33 RBC (3.80-5.40) m/uL Hgb (11.4-16.0) gm/dL Hct (34.0-46.0) % Neutrophils # (1.3-7.7) k/uL Lymphocytes # (1.0-4.8) k/uL D-Dimer (<0.60) mg/L FEU ABG pCO2 (35-45) mmHg ABG pO2 (83-108) mmHg ABG HCO3 (21-25) mmol/L ABG Total CO2 (19-24) mmol/L ABG O2 Saturation (94-97) % Carbon Dioxide (22-30) mmol/L BUN (7-17) mg/dL Creatinine (0.52-1.04) mg/dL Glucose (74-99) mg/dL POC Glucose (mg/dL) 127 H (75-99) mg/dL AST (14-36) U/L ALT (4-34) U/L Lactate Dehydrogenase (313-618) U/L C-Reactive Protein (<1.0) mg/dL Total Protein (6.3-8.2) g/dL Albumin (3.5-5.0) g/dL Assessment and Plan Assessment: Impression: Acute hypoxic respiratory failure secondary to COVID-19 pneumonia. Patient was outside the window for BAM, treated initially with Decadron and vitamins as per the ER visit. She did receive since this admission to[facility], remains on Decadron and vitamin cocktail as well as COVID-19 cocktail. Patient was intubated on 06/18, not requiring any paralytics. New onset atrial fibrillation with RVR now on Xarelto. She was treated with amiodarone, heparin, and transition to Xarelto. Elevated inflammatory markers secondary to above. History of CVA and aphasia. Hypertension. 2 diabetes. Dyslipidemia. History of right-sided mastectomy for breast cancer. Former smoker. Dyslipidemia. Recommendation: Continue ventilatory support. PEEP was cut down from 15-12. Continue the COVID-19 cocktail. Patient did receive toci. Continue Xarelto. Continue enteral feeding. Continue Versed/sedation. Continue fentanyl. Continue to monitor inflammatory markers. Continue to titrate FiO2 and PEEP down accordingly. Continue Decadron. Continue GI and DVT prophylaxis. Prognosis remains relatively guarded and the patient remains quite ill. Chest x-ray was noted today. And as noted above Critical care time is over 30 minutes. Time with Patient: Greater than 30
[2020-06-23 12:28] LABS: Glucose,Whole Blood 159 mg/dL (75-99)
[2020-06-23 15:45] LABS: Glucose,Whole Blood 209 mg/dL (75-99)
[2020-06-23] MEDS: RIVAROXABAN 20 MG TAB PO SCH (18:45)
[2020-06-23 19:54] LABS: Glucose,Whole Blood 204 mg/dL (75-99)
[2020-06-23] MEDS: ATORVASTATIN 10 MG TAB PO SCH (20:08)
--- NOTE | 2020-06-23 21:16 | P.PN ---
Subjective Pt could not provide information and it was obtained from staff and medical records This is a 69-year-old patient who follows with Dr. blake . presents with respiratory symptoms including cough for about 2 or 3 weeks. EMS was called out and they found the patient to be hypoxic with 46%. Patient was ventilated with a bag valve and pulse oxygenation improved. He was placed on a nonrebreather and brought here. Pt first placed on BiPAP. And then needed to be intubated. Patient chronic stable medical conditions include diabetes, hypertension, hyperlipidemia, history of breast cancer with right mastectomy. Admitted with acute severe bilateral COVID 19 pneumonia, acute severe hypoxic respiratory failure, acute metabolic encephalopathy, with work up with csf is unremarkable, a fib and RVR pt is currently intubated and mechanical ventilation, PEEP is 15 06/23/2020 Patient remains in the ICU sedated and intubated with pulmonary/critical care team on the case and help with the vent management. Patient today is lower through 12. Neurology team already signed off, altered mental status is due to her Covid and metabolic encephalopathy.Afebrile Labs reviewed, no significant change in CBC and BMP. Liver Enzymes only mildly elevated She is on Xarelto 20 mg, she is also on dexamethasone, vitamin C, vitamin D and zinc review of systems: n/a Active Medications Generic Name Dose Route Start Last Admin Trade Name Freq PRN Reason Stop Dose Admin Acetaminophen 650 mg 06/12/20 15:49 06/13/20 21:46 Acetaminophen Suppository 650 Mg Supp RECTAL 650 mg Q4HR PRN Administration Fever And/ Or Mild Pain Artificial Tears 2 drops 06/19/20 13:00 06/23/20 18:45 Artificial Tears-Hypromellose Drops 15 Ml Btl BOTH EYES 2 drops QID DANITA Administration Ascorbic Acid 1,000 mg 06/13/20 09:00 06/23/20 09:45 Ascorbic Acid 500 Mg Tab PO 1,000 mg DAILY DANITA Administration Atorvastatin Calcium 10 mg 06/12/20 21:00 06/23/20 20:08 Atorvastatin 10 Mg Tab PO 10 mg HS DANITA Administration Chlorhexidine Gluconate 15 ml 06/18/20 09:00 06/23/20 20:09 Chlorhexidine Gluconate 15 Ml Cup MUCOUS MEM 15 ml BID DANITA Administration Cholecalciferol 25 mcg 06/12/20 15:45 06/23/20 09:45 Cholecalciferol 25 Mcg (1000 Iu) Tablet PO 25 mcg DAILY DANITA Administration Dexamethasone Sodium Phosphate 6 mg 06/13/20 16:45 06/23/20 09:46 Dexamethasone Sod Phosphate 10 Mg/Ml 1 Ml Vial IV 6 mg DAILY DANITA Administration Famotidine 20 mg 06/22/20 21:00 06/23/20 20:08 Famotidine 20 Mg Tab PO 20 mg Q12HR DANITA Administration Diltiazem HCl 125 mg/ Sodium 125 mls @ 0 mls/hr 06/19/20 04:30 06/19/20 12:00 Chloride IV 0 mls/hr .Q0M DANITA 0 mls/hr Titration Protocol Per Protocol Fentanyl Citrate 1,000 mcg/ 100 mls @ 0 mls/hr 06/19/20 07:45 06/23/20 18:43 Sodium Chloride IV 1.5 mcg/kg/hr .Q0M DANITA 12.915 mls/hr Administration Protocol Per Protocol Midazolam HCl 200 mg/ Sodium 100 mls @ 5 mls/hr 06/23/20 10:30 06/23/20 14:44 Chloride IV 10 mg/hr .Q20H DANITA 5 mls/hr Administration Protocol 10 MG/HR Insulin Aspart 0 unit 06/19/20 12:00 06/23/20 20:08 Insulin Aspart (Novolog) 100 Unit/Ml Vial SQ 4 unit Q4H DANITA Administration Protocol Insulin Aspart 10 unit 06/21/20 08:00 06/23/20 20:09 Insulin Aspart (Novolog) 100 Unit/Ml Vial SQ 10 unit Q4H DANITA Administration Insulin Detemir 46 unit 06/21/20 07:00 06/23/20 09:46 Insulin Detemir (Levemir) 100 Unit/Ml Syr SQ 46 unit DAILY@0700 DANITA Administration Miscellaneous Information 1 each 06/18/20 22:38 Potassium Replacement Protocol 1 Each Misc MISCELLANE DAILY PRN Per Protocol Protocol Miscellaneous Information 1 each 06/18/20 22:39 Magnesium Replacement Protocol 1 Each Misc MISCELLANE DAILY PRN Per Protocol Protocol Naloxone HCl 0.2 mg 06/12/20 15:49 Naloxone 0.4 Mg/Ml 1 Ml Vial IV Q2M PRN Opioid Reversal Rivaroxaban 20 mg 06/21/20 21:00 06/23/20 18:45 Rivaroxaban 20 Mg Tab PO 20 mg W/SUPPER DANITA Administration Sertraline HCl 50 mg 06/13/20 09:00 06/23/20 09:51 Sertraline 50 Mg Tab PO 50 mg DAILY DANITA Administration Sodium Chloride 10 ml 06/16/20 15:14 Sodium Chloride 0.9% Flush 10 Ml Syringe IV Q4HR PRN PICC Line Sodium Chloride 10 ml 06/23/20 09:00 06/23/20 09:54 Sodium Chloride 0.9% Flush 10 Ml Syringe IV 10 ml WEEKLY DANITA Administration Sodium Chloride 20 ml 06/16/20 15:14 Sodium Chloride 0.9% Flush 10 Ml Syringe IV Q4HR PRN PICC Line Zinc Sulfate 220 mg 06/24/20 09:00 Zinc Sulfate 220 Mg Cap PO DAILY DANITA Objective - Vital Signs Vital signs: Vital Signs Temp 98.9 F 06/23/20 12:00 Pulse 87 06/23/20 12:00 Resp 32 H 06/23/20 12:00 BP 131/74 06/23/20 12:00 Pulse Ox 87 L 06/23/20 12:00 Intake & Output 06/22/20 06/23/20 06/23/20 18:59 06:59 18:59 Intake Total 9673.586 7080.6 551.627 Output Total 1220 800 350 Balance 198.542 452.6 201.627 Weight 87.7 kg 89.2 kg Intake: IV 265 220 60 0.9 265 220 60 Intake, IV Titration 269.542 234.6 107.627 Amount Midazolam HCl 50 mg In 91.1 134.6 28.2 Sodium Chloride 0.9% 40 ml @ 10 MG/HR 10 mls/hr IV .Q5H [facility] Rx#:[id number] fentaNYL (PF). 1,000 mcg 178.442 100 79.427 In Sodium Chloride 0.9% 80 ml @ Per Protocol IV . Q0M DANITA Rx#:[id number] Tube Feeding 734 708 354 Other 150 90 30 Output: Urine 1220 800 350 Other: Voiding Method Indwelling Catheter Indwelling Catheter ABP, PAP, CO, CI - Last Documented Arterial Blood Pressure 122/49 - Exam -GENERAL: The patient is intubated and sedated HEENT: Pupils are round and equally reacting to light. EOMI. No scleral icterus. No conjunctival pallor. Normocephalic, atraumatic. No pharyngeal erythema. No thyromegaly. CARDIOVASCULAR: S1 and S2 present. No murmurs, rubs, or gallops. -PULMONARY: Chest is clear to auscultation, bilateral crepitation ABDOMEN: Soft, nontender, nondistended, normoactive bowel sounds. No palpable organomegaly. MUSCULOSKELETAL: No joint swelling or deformity. EXTREMITIES: No cyanosis, clubbing, or pedal edema. NEUROLOGICAL: Gross neurological examination did not reveal any focal deficits. SKIN: No rashes. no petechiae. - Labs CBC & Chem 7: 06/23/20 04:06/23/20 04:20 Labs: Abnormal Lab Results - Last 24 Hours (Table) 06/22/20 06/22/20 06/23/20 Range/Units 15:53 20:02 00:35 RBC (3.80-5.40) m/uL Hgb (11.4-16.0) gm/dL Hct (34.0-46.0) % Neutrophils # (1.3-7.7) k/uL Lymphocytes # (1.0-4.8) k/uL D-Dimer (<0.60) mg/L FEU ABG pCO2 (35-45) mmHg ABG pO2 (83-108) mmHg ABG HCO3 (21-25) mmol/L ABG Total CO2 (19-24) mmol/L ABG O2 Saturation (94-97) % Carbon Dioxide (22-30) mmol/L BUN (7-17) mg/dL Creatinine (0.52-1.04) mg/dL Glucose (74-99) mg/dL POC Glucose (mg/dL) 219 H 177 H 159 H (75-99) mg/dL AST (14-36) U/L ALT (4-34) U/L Lactate Dehydrogenase (313-618) U/L C-Reactive Protein (<1.0) mg/dL Total Protein (6.3-8.2) g/dL Albumin (3.5-5.0) g/dL 06/23/20 06/23/20 06/23/20 Range/Units 04:20 04:20 04:28 RBC 3.25 L (3.80-5.40) m/uL Hgb 10.0 L (11.4-16.0) gm/dL Hct 30.4 L (34.0-46.0) % Neutrophils # 8.6 H (1.3-7.7) k/uL Lymphocytes # 0.7 L (1.0-4.8) k/uL D-Dimer (<0.60) mg/L FEU ABG pCO2 (35-45) mmHg ABG pO2 (83-108) mmHg ABG HCO3 (21-25) mmol/L ABG Total CO2 (19-24) mmol/L ABG O2 Saturation (94-97) % Carbon Dioxide 32 H (22-30) mmol/L BUN 44 H (7-17) mg/dL Creatinine 0.49 L (0.52-1.04) mg/dL Glucose 121 H (74-99) mg/dL POC Glucose (mg/dL) 131 H (75-99) mg/dL AST 46 H (14-36) U/L ALT 35 H (4-34) U/L Lactate Dehydrogenase 1628 H (313-618) U/L C-Reactive Protein 2.7 H (<1.0) mg/dL Total Protein 5.3 L (6.3-8.2) g/dL Albumin 2.7 L (3.5-5.0) g/dL 06/23/20 06/23/20 06/23/20 Range/Units 05:15 05:15 09:33 RBC (3.80-5.40) m/uL Hgb (11.4-16.0) gm/dL Hct (34.0-46.0) % Neutrophils # (1.3-7.7) k/uL Lymphocytes # (1.0-4.8) k/uL D-Dimer 15.47 H (<0.60) mg/L FEU ABG pCO2 46 H (35-45) mmHg ABG pO2 61 L (83-108) mmHg ABG HCO3 31 H (21-25) mmol/L ABG Total CO2 33 H (19-24) mmol/L ABG O2 Saturation 91.1 L (94-97) % Carbon Dioxide (22-30) mmol/L BUN (7-17) mg/dL Creatinine (0.52-1.04) mg/dL Glucose (74-99) mg/dL POC Glucose (mg/dL) 127 H (75-99) mg/dL AST (14-36) U/L ALT (4-34) U/L Lactate Dehydrogenase (313-618) U/L C-Reactive Protein (<1.0) mg/dL Total Protein (6.3-8.2) g/dL Albumin (3.5-5.0) g/dL 06/23/20 Range/Units 12:25 RBC (3.80-5.40) m/uL Hgb (11.4-16.0) gm/dL Hct (34.0-46.0) % Neutrophils # (1.3-7.7) k/uL Lymphocytes # (1.0-4.8) k/uL D-Dimer (<0.60) mg/L FEU ABG pCO2 (35-45) mmHg ABG pO2 (83-108) mmHg ABG HCO3 (21-25) mmol/L ABG Total CO2 (19-24) mmol/L ABG O2 Saturation (94-97) % Carbon Dioxide (22-30) mmol/L BUN (7-17) mg/dL Creatinine (0.52-1.04) mg/dL Glucose (74-99) mg/dL POC Glucose (mg/dL) 159 H (75-99) mg/dL AST (14-36) U/L ALT (4-34) U/L Lactate Dehydrogenase (313-618) U/L C-Reactive Protein (<1.0) mg/dL Total Protein (6.3-8.2) g/dL Albumin (3.5-5.0) g/dL Assessment and Plan Assessment: -Acute severe bilateral COVID 19 pneumonia, diagnosed 5 days before admission, with symptoms present 2-3 weeks prior to that.-Not improving -Acute severe hypoxic respiratory failure, secondary to COVID 19 slow to respond -Acute delirium and acute metabolic encephalopathy from COVID 19 pneumonia -Diabetes mellitus type 2 on oral hypoglycemic, uncontrolled with hyperglycemia secondary to steroids -Essential hypertension -Diabetic peripheral neuropathy -Hyperlipidemia -Patient underwent lumbar puncture. CSF benign. -Significant hypernatremia with hyperchloremia.-Corrected -Paroxysmal atrial fibrillation with rapid ventricle [id number] rhythm Plan: This is a pleasant 69 years old female who presents with Covid pneumonia and hypoxia. Continue with steroids, IV fluids, continue with vitamin C, vitamin D and zinc. Continue with Lovenox and monitor d-dimer. Neurology and Pulmonary/critical care team on the case and follow-up with a recommendation. Pt is on vitamin c, vitamin D and zinc, also on dexamethasone, Xarelto 20 mg daily. DVT and GI prophylaxis
[2020-06-23 23:40] LABS: Glucose,Whole Blood 181 mg/dL (75-99)
[2020-06-24 04:04] LABS: Glucose,Whole Blood 113 mg/dL (75-99)
[2020-06-24] MEDS: INSULIN ASPART (NovoLOG) 100 UNIT/ML VIAL SQ SCH ×10 (04:05→20:17)
[2020-06-24] MEDS: SODIUM CHLORIDE 0.9% IV SCH ×3 (04:13→21:39)
[2020-06-24] MEDS: MIDAZOLAM HCL IV SCH ×3 (04:13→21:39)
[2020-06-24] MEDS: fentaNYL (PF). 1,000 MCG in SODIUM CHLORIDE 0.9% 80 ML IV SCH ×3 (05:27→22:56)
[2020-06-24 05:46] LABS: ALT 41 U/L (4-34); AST 45 U/L (14-36); African American GFR (CKD) >90 (>60 ml/min/1.73 sqM); Albumin 2.9 g/dL (3.5-5.0); Alkaline Phosphatase 65 U/L (38-126); Anion Gap 4 mmol/L; Blood Urea Nitrogen 42 mg/dL (7-17); Carbon Dioxide 31 mmol/L (22-30); Chloride 104 mmol/L (98-107); Glucose 119 mg/dL (74-99); LDH 1572 U/L (313-618); Non-African American GFR(CKD) >90 (>60 ml/min/1.73 sqM); Potassium 4.5 mmol/L (3.5-5.1); Sodium 139 mmol/L (137-145); Total Bilirubin 0.4 mg/dL (0.2-1.3); Total Protein 5.5 g/dL (6.3-8.2)
[2020-06-24 05:48] LABS: ABG Base Excess 7.3 mmol/L; ABG HCO3 32 mmol/L (21-25); ABG Oxygen Saturation 86.2 % (94-97); ABG PCO2 52 mmHg (35-45); ABG TCO2 34 mmol/L (19-24); Allen Test Performed? Yes
[2020-06-24 05:51] LABS: ABG PO2 58 mmHg (83-108)
[2020-06-24 06:20] LABS: Basophils # (A) 0.1 k/uL (0-0.2); Basophils % (A) 1 %; Eosinophils # (A) 0.1 k/uL (0-0.7); Eosinophils % (A) 1 %; HCT 32.6 % (34.0-46.0); HGB 10.4 gm/dL (11.4-16.0); Lymphocytes # (A) 0.8 k/uL (1.0-4.8); Lymphocytes % (A) 8 %; MCH 30.5 pg (25.0-35.0); MCV 95.4 fL (80.0-100.0); Mean Platelet Volume 9.4; Monocytes # (A) 0.2 k/uL (0-1.0); Monocytes % (A) 2 %; Neutrophils # (A) 8.7 k/uL (1.3-7.7); Neutrophils % (A) 88 %; Platelet Count 233 k/uL (150-450); RBC 3.41 m/uL (3.80-5.40); RDW 15.2 % (11.5-15.5); WBC 9.9 k/uL (3.8-10.6)
[2020-06-24] MEDS: INSULIN DETEMIR (LEVEMIR) 100 UNIT/ML SYR SQ SCH (06:42)
[2020-06-24 08:12] LABS: Glucose,Whole Blood 148 mg/dL (75-99)
[2020-06-24] MEDS: ZINC SULFATE 220 MG CAP PO SCH (08:16)
[2020-06-24] MEDS: CHLORHEXIDINE GLUCONATE 15 ML CUP MUCOUS MEM SCH ×2 (08:16→20:16)
[2020-06-24] MEDS: SERTRALINE 50 MG TAB PO SCH (08:16)
[2020-06-24] MEDS: FAMOTIDINE 20 MG TAB PO SCH ×2 (08:16→20:17)
[2020-06-24] MEDS: DEXAMETHASONE SOD PHOSPHATE 10 MG/ML 1 ML VIAL IV SCH (08:16)
[2020-06-24] MEDS: ASCORBIC ACID 500 MG TAB PO SCH (08:16)
[2020-06-24] MEDS: ARTIFICIAL TEARS-HYPROMELLOSE DROPS 15 ML BTL BOTH EYES SCH ×4 (08:17→22:19)
[2020-06-24] MEDS: CHOLECALCIFEROL 25 MCG (1000 IU) TABLET PO SCH (08:17)
--- NOTE | 2020-06-24 08:21 | XR ---
EXAMINATION TYPE: XR chest 1V portable DATE OF EXAM: 06/24/2020 COMPARISON: Chest x-ray 06/23/2020 HISTORY: Intubated TECHNIQUE: Single frontal view of the chest is obtained. FINDINGS: Endotracheal tube, orogastric tube, left-sided PICC line are overlying appropriate positio ns. Cardiac mediastinal silhouette is stable accounting for differences in technique and rotation. Bi lateral airspace disease, mixed interstitial pattern is again seen. There is no evident pneumothorax or pleural effusion. IMPRESSION: Findings are stable. Correlate for pneumonia, edema, ARDS
--- NOTE | 2020-06-24 11:50 | P.PN ---
Subjective Progress Note Date: 06/24/20 Principal diagnosis: Acute hypoxic failure secondary to COVID-19 pneumonia. 69-year-old white female patient who presented to the emergency department on 06/12/2020 at 1400 in the afternoon with complaints of shortness of breath, and her first onset of symptoms was approximately 2-3 weeks ago. She tested positive for COVID 19 on 06/07/2020. Patient was seen in the emergency department at that time, and was having symptoms of fatigue, shortness of breath and cough. She does have multiple comorbidities including hypertension, diabetes mellitus, dyslipidemia, history of breast cancer, patient is a former smoker. Was outside the window for monoclonal antibody, she was sent home on Decadron, and vitamins. Chest x-ray at that time showed interstitial infiltrates. Patient returned with worsening symptoms, chest x-ray on the 2020 showed interval bilateral diffuse infiltrates. In addition patient was confused, on arrival of the EMS to the scene patient was severely hypoxemic with a pulse ox of only 46%. She was bagged valve ventilated with improvement in her oxygen, she was placed on BiPAP support. Brain CT showed no acute intracranial abnormality. Angiography CT showed no acute abnormality of the head/neck, and a moderate stenosis of the right proximal ICA. CBC was positive for lymphopenia with lymphocyte count 0.6, d-dimer was 1.36, sodium is 143, potassium is 3.9, chloride is 108, CO2 22, BUN is 50, creatinine is 1, glucose level was 321, plasma lactic acid is 1.3, AST was 84, ALT was 31, alk phos was 50, troponin was 0.104, CRP was 334. Patient was started on IV Decadron in the emergency department, she remains on BiPAP support, currently at pressures of 12 and 6 and FiO2 100%, she appears to have increased work of breathing, she is not able to answer questions related to dyspnea, repeat blood gas was done showing pO2 of 68, pCO2 45, pH of 7.39 and subsequently her BiPAP settings were adjusted to 14/7 and FiO2 100%, patient is awaiting a bed in the intensive care unit, she is awake and alert, she did answer some simple questions yes or no for me while on BiPAP support, we'll start the patient on IL-6 MAB, Tocilizumab. We'll continue to closely follow her clinical course, continues to deteriorate patient required intubation and placement on mechanical ventilatory supp On today's evaluation of 06/14/2020 the patient is being seen for a follow-up regarding acute hypoxic respiratory failure and COVID 19 pneumonia. The patient was status post positive on 06/07/2020 and the patient was symptomatic prior to that. The patient presented with hypoxic respiratory failure and the patient was placed on a BiPAP which is currently at the pressure of 14/7 cm of water and FiO2 of 900%. Chest x-ray showing bilateral patchy by troponin infiltrates consistent with pneumonia. The patient was started on steroids and Tocilizumab was ordered. The patient is having increased shortness of breath even while on the BiPAP. The patient is quite dyspneic even while on the BiPAP and is unable to complete full sentences. Blood gases from yesterday was noted. CT angiogram of the head and neck showed moderate stenosis of the right proximal ICA. CAT scan of the brain was negative., CRP of 356, troponin was 0.19 and the patient's d-dimer was 2.13. The patient is currently on Decadron 6 mg IV every 24 hours. The patient is on Lovenox 40 mg subcu every 24 hours. The patient on Levemir insulin 20 units daily at bedtime that was started yesterday the patient will be taken off the insulin drip. Currently the patient is also on various hypertensive medications including Zestoretic and Kl clonidine patch and Norvasc. neurologically, the patient is still quite somnolent. She is moving all 4 extremities. No neck stiffness. This encephalopathy is probably related to Covid 19 infection. Neuro is also on the case. His blood work, the sodium level is at 154 with a BUN of 61 and creatinine of 0.9. The patient on IV fluid and currently receiving 0.9 at the rate of 100 mL an hour. On 06/15/2020, the patient is being seen in follow-up in the intensive care unit. This is a case of 69-year-old female patient with Covid associated pneumonia. The patient remains in the emergency department awaiting her bed in the ICU. Currently she is on a BiPAP at a pressure of 14/7 cm of water with an FiO2 of 100%. The patient is quite synchronous and tolerated the BiPAP treatment. Her current tidal volume generated is around 840 mL with a respiratory rate of 29 and a minute ventilation of 23. Chest x-ray from today has not been done and this is supposed to be repeated. The chest x-ray from yesterday was showing diffuse bilaterally pulmonary infiltrates more so in the left perihilar area. No new blood gases. D-dimer is today at 34 and the CRP level is at 67. LDH is still pending for now. Neurologically, the patient is still lethargic and somnolent and encephalopathic. She is on Precedex running at 0.5 mcg/kg per minute. Lumbar puncture was done yesterday and the patient was found to have a CSF RBC of 7, nucleated cells were only a 2, glucose was 79 and the protein was slightly elevated at 66. This is not consistent with bacterial meningitis. It may be consistent with viral encephalopathy. Gram st ain of the CSF was negative. Cultures are also negative. I would say clinically she is essentially unchanged. She is more comfortable while being on Precedex. She is hemodynamically stable and she is afebrile. She is still receiving IV fluids in the form of D5 half-normal saline at the rate of 1 25 mL an hour. She is currently off the insulin drip. Her blood sugar is at 128 and the patient is on Levemir insulin 20 units daily at bedtime along with a sliding scale coverage. The patient's renal function currently is stable with a BUN of 63 and a creatinine of 0.8. Sodium level was improving and his sodium level was on the decline it was already down to 151. 06/16/2020, the patient remains on a BiPAP in the emergency department a pressure of 14/7 and FiO2 is currently at 80% and her current pulse ox is around 96%. Her generated tidal volume is around 816 with a respiratory rate of 30 and a minute volume of 25 L per minute. I took her off the Precedex yesterday the patient was quite lethargic. This morning, she is more arousable. She is extremely weak. She is following some simple commands. She is wiggling her toes and moving her arms upon demand. She cannot hold a conversation as the patient is very much BiPAP dependent at this point in time. She easily desaturates once she is off the BiPAP. She is hemodynamically stable for now. The chest x-ray showing bilateral pulmonary infiltrates, slightly improved compared to yesterday. In terms of her blood work, the patient's blood sugars at 250. She is currently on D5 half-normal saline at the rate of 150 mL an hour. Her sodium level is improved and is down to 145 and a BUN is 36 with a creatinine of 0.7. Her CRP is down to 41. Her LDH level is up to 3339. Rest of the blood work and electrodes are all within normal limits and as mentioned the sodium level is improved and is down to 145. Her lumbar puncture was done and the findings are essentially related to Covid 19 encephalopathy. Case was discussed with neurology. As for the blood sugars, the patient's blood sugars are running in the mid 200s and the patient is on a sliding scale coverage. No major edema in lower extremities. Cardiac rhythm is sinus for now. 06/17/2020, the patient is being seen in follow-up. Unfortunately, she has remained in the emergency and she hasn't been able to find her way up to the ICU. I have her today on a BiPAP at a pressure of 16/8 cm of water with an FiO2 of 100%. The patient was doing well throughout the night and earlier this morning she became significantly more short of breath, hypoxic and tachycardic. Currently she is struggling with her breathing. She is using excessive muscle breathing even while being on a BiPAP. She is able to generate adequate tidal volumes of around 800 mL and her respiratory rate is in the mid 40s. She is tachycardic with a heart rate of 150, sinus. She is unable to speak. She is anxious. She was given a total of 4 mg of morphine which helped her with the breathlessness and shortness of breath. She is awake and arousable and she is moving all 4 extremities. As mentioned earlier, she is a case of COVID-19 related pneumonia. The patient was treated with a combination of treatment and the patient was given Decadron 6 mg IV every 24 hours. The patient also received Tocilizumab 50 mg IV on 06/13/2020. She was having some degree of encephalopathy that was thought to be a viral encephalopathy in the lumbar puncture was done and it showed some mild elevation of the protein. Otherwise negative. Repeat chest x-ray from today has not been completed. This is in progress. Cardiac rhythm is sinus. The patient is likely headed to intubation/ mechanical ventilation. 06/18/2020, the patient is currently in the intensive care unit. She seems much more comfortable while being on Precedex is running at 0.7 mcg/kg per minute. She is very evasive ventilator and the patient is currently on a pressure of 16/8 with an FiO2 of 100%. She was struggling with her breathing yesterday and she seems to be essentially the same as yesterday without any interval improvement.. Her current respiratory rate is in the order of mid 30s and she is able to generate adequate amount of tidal volume. She is unresponsive. She is on Precedex. Her breathing is unlabored. She is using accessory muscles of breathing. She has less tachycardic to yesterday. She seems to be also less anxious. She is taking morphine on an as-needed basis for shortness of breath and anxiety. On today's blood gas, pH is 7.48 with a pCO2 of 36 and pO2 of 51. Her current pulse ox is 91%. She remains on Decadron 6 mg IV every 24 hours. The patient also received Tocilizumab 720 mg iv. The patient remains also on anticoagulation on Lovenox 45 mg subcu she will 12 hours. In terms of the inflammatory markers, the patient has a d-dimer of above 34, and the patient has a LDH level of 3728 and the patient is a CRP of 29. The inflammatory markers continued to be quite elevated and essentially unchanged compared to yesterday. She is afebrile for now and she is hemodynamically stable on no pressors. She is receiving nutrition via TPN and the patient is decline in her left upper extremity. CSF cultures have been negative. No neck stiffness. Neurology is also on the case and the working diagnosis is COVID-19 related encephalopathy. 06/19/2020 on seeing the patient in the intensive care unit. Noted the patient was brought in to the ICU yesterday and she became progressively more confused, tachypneic, tachycardic and hypoxic and she was failing also BiPAP which she was able to tolerate for a few days. At that point, the decision was to intubate the patient placed on mechanical ventilator. Following intubation, the patient was placed on sedation with propofol and currently propofol is running at 40 mg/kg/m. She also had to be paralyzed and the patient is currently on Nimbex running at 2 mcg/kg per minute. She was taken off the Precedex. For now, she is well sedated and paralyzed on a mechanical ventilator and she is currently on assist control mode rate of 28 with a tidal volume of 400 and FiO2 of 70% with a PEEP of 15. At peak airway pressure on the mechanical ventilator is 33. Static pressure is 31. No orotracheal secretions. The chest x-ray from today showing adequate positioning of the orotracheal tube. The patient also has a orogastric tube in place. The patient had diffuse breath and pulmonary infiltrates consistent with COVID-19 related pneumonia/ARDS. Her d-dimer was elevated at 35 and the patient was receiving 45 mg of subcu Lovenox every 12 hours. LDH from today is 2544 and a CRP level is at 3.4 and both are elevated. Most recent blood gases from this morning shows a pH of 7.39 with a pCO2 of 47 and pO2 of 79. The patient remains on steroids and she is receiving Decadron 6 g IV every 24 hours. Earlier during the shift, the patient became hypotensive and she had to be placed on pressors and the patient is currently on norepinephrine infusion running at 0.06 mcg/kg per minute. Earlier this morning at around 3:15 AM, the patient also went into new onset atrial fibrillation with rapid ventricular response. She was given amiodarone bolus 150 mg IV and following that she was given a amiodarone at 1 mg per minute for loading protocol. There was no impact on her heart rate. The patient was also given Cardizem, bolus initially at a dose of 5 mg IV and following that started on a maintenance of 10 mg an hour. She is currently still having atrial fibrillation and her heart rate is in the 130 to 140 range. Blood pressure is soft and the patient is stranding thousand becoming hypotensive. Urine output is order of early cc an hour. IV fluids are running at 20 mL an hour and the patient is on enteral feeding for nutritional support in the form of vital high protein at the rate of 20 mL an hour and the goal is at 38. In terms of her CSF cultures, if very much came back negative. The patient had over the encephalopathy prior to her getting intubated. The triglyceride at baseline prior to her initiation of propofol infusion was 594. I am inclined to switching this patient alternatives sedation. She was on Precedex however this was not effective in combination with fentanyl. I will consider adding Versed infusion. 06/20/2020, the patient is intubated on a mechanical ventilator and she is currently in the intensive care unit. After being on a BiPAP for several days, the patient decompensated. She presented to us with COVID-19 related pneumonia and encephalopathy. She was on Precedex and BiPAP for extended period of time and ultimately she failed and she was intubated and placed on a mechanical ventilator. Propofol was discontinued as the patient was having an elevated triglyceride level and the patient is currently on Versed running at 5 mg an hour and fentanyl running at 1 mcg/kg per minute. The patient is currently off paralytics. He was discontinued yesterday. In terms of treatment, the patient remains on assist control mode of mechanical ventilation. She is on a tidal volume of 400 with an FiO2 of 70% and a PEEP is at 15 with a respiratory rate of 28 and this is volume cycle assist-control mode. The blood gas showed a pH of 7.39 with a pCO2 50 and pO2 of 64. The chest x-ray from today is showing diffuse interstitial infiltrates bilaterally. Overall findings are essentially unchanged compared to yesterday. Orotracheal tube remains in a good location. The peak anesthetic pressures are 31 and 30 respectively. The patient's lightheadedness a mechanical ventilator and she is currently off paralytics. Meanwhile, at LDH level is at 2253 which is comparable to yesterday and his CRP level from yesterday was at 3.4. Her d-dimer level is at 10.3. She did have a bout of atrial fibrillation yesterday with rapid ventricular response. She was treated with a combination of amiodarone drip and a Cardizem drip. Cardizem drip has been discontinued. Amiodarone drip is running at 0.5 mg per minute and the patient's cardiac rhythm is back in 2 sinus tachycardia and she converted back to sinus yesterday morning. The patient is also on IV heparin infusion. Recommendations are to discontinue the amiodarone for now and keep the IV hepar in for another 24 hours. In terms of hemodynamics, the patient has been off pressors since yesterday. She was running only a low dose of norepinephrine infusion. Currently is on IV fluids running at the rate of 20 mL an hour and the net fluid balance has been +1.6 L since yesterday. Remains on Decadron 6 mg IV every 24 hours. Remains on IV heparin for now. Levemir insulin 36 units for blood sugar control along with NovoLog Scale coverage. Blood sugars continued to be quite elevated. NovoLog 10 units 4 times a day will be also added in combination with sliding scale coverage. On 06/21/2020 patient seen in intensive care unit, patient remains intubated, sedated on assist control mode of ventilation with a rate of 28, tidal vitamins 400, FiO2 of 70%, and PEEP of 15, this morning's blood gas shows a pO2 of 77, pCO2 48, and pH of 7.42, patient's chest x-ray today shows ET tube, NG tube, right-sided PICC line in appropriate positions, bilateral airspace disease similar to the prior exam, no evident pneumothorax or sizable pleural effusion. In terms of drips, patient is on 0.9 normal saline at a rate of 20 ML per hour, she is on Versed at 11 mg per hour, and fentanyl drip is at 1.5 mics per kilo per minute, to prevent has been off in view of elevated triglyceride levels, she is receiving nutritional support in the form of vital high protein at a rate of 38 which is goal with standard water flushes. The rest of the blood work has been reviewed today showing white blood cell, 9.5, hemoglobin of 9.9, platelet count is 214, d-dimer is 5.35 which is improved from 10.39 on yesterday's labs, sodium is 142, potassium is 4.3, chloride is 110, CO2 30, BUN of 48, creatinine 0.74, LFTs are improving, AST and ALT are 45 and 42 respectively, alkaline phosphatase is within normal range at 86 today which is also improved, LDH is trending down, at 1816 on today's labs, CRP is 1.8. In terms of therapy patient is currently on Decadron at 6 mg daily IV, she remains off paralytics, she did have a run of A. fib with RVR for which she had Cardizem drip started, she has not had recurrence of A. fib RVR, she was on heparin infusion which we can switch back over to Lovenox at intermediate doses in view of improving d-dimer and no recurrence of arrhythmias. Echocardiogram showed preserved LV function of 55%, mild MR, and mild TR, no evidence of pulmonary hypertension moderate en largement of the right ventricle. Her blood sugar control has improved, and patient is calm combination of Levemir 46 units daily in addition to NovoLog sliding scale and 10 units of additional NovoLog in addition to sliding scale 4 times daily. Her CSF cultures have shown no growth thus far, cats, mild elevation of temperature, but low-grade fever, with a T-max of 99.8 Patient was reevaluated today on 06/22/2020, remains intubated and mechanically ventilated. Her assist-control rate is 28, tidal volume is 400, FiO2 is 55%, PEEP is 15. Peak airway pressure is 29 static pressures 27. ABG this morning showed a pO2 of 66 pCO2 of 50 pH of 7.42. Remains on Versed at 9 mg per hour, and fentanyl at 1.5 mcg/kg/h. Patient is also on IV fluid at 0.9 normal saline, receiving tube feeding at 58 ML per hour. Patient was switched to Xarelto. From Lovenox. CBC is relatively normal. Her d-dimer is 10.74. Electrolytes are normal. Renal profile is normal. LDH is 1546., Steadily improving, it was as high as 3700 Patient was reevaluated today on 06/23/2020, remains in the ICU, intubated and mechanically ventilated. She is on assist control rate of 28 tidal volume is 400 FiO2 50% PEEP remains 15. I did cut down the PEEP to 12. ABG showed a pO2 of 61 pCO2 of 46 pH of 7.44. Patient remains on Versed and fentanyl, not requiring any Nimbex, Versed is 10 mg per hour, and fentanyl at 1.5 mcg/kg/h. She is on enteral feeding using vital hP and 59/59. Patient is hemodynamically stable, she is in sinus rhythm, peak airway pressure is 28, and static pressure is 17. Chest x-ray continues to show bilateral of disease consistent with COVID-19 pneumonia. Basic metabolic profile is normal renal profile is normal LDH is 1628. C-reactive protein is 2.7 BC is relatively normal. Spinal fluid cultures have been negative from a week ago Patient was reevaluated today on 06/24/2020, remains in the ICU, intubated and mechanically ventilated. He is on assist control rate of 28 tidal volumes 400 FiO2 50% PEEP of 14. ABG showed a pO2 of 58 pCO2 of 52 pH of 7.40. Patient is on fentanyl at 1.5 and Versed at 11 mg per hour. My plan is to give the patient a sedation holiday. And assess mental status. Although the patient remains on relatively high PEEP, she is not ready to wean, and I would recommend tracheostomy and PEG tube placement on this patient. Remains on vital Hp at 59 mL per hour. Surgical consultation for tracheostomy and PEG tube was initiated. WBC count is 9.9 hemoglobin is 10.4. Electrolytes are normal. Renal profile is normal. LDH remains high at 1572. C-reactive protein is 4.0. Both seem to be trending down. And showing improvement. Chest x-ray continues to show bilateral pneumonia. 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 Objective - Vital Signs Vital signs: Vital Signs Temp 99.5 F 06/24/20 08:00 Pulse 120 H 06/24/20 11:00 Resp 23 06/24/20 11:00 BP 159/80 06/24/20 11:00 Pulse Ox 87 L 06/24/20 11:00 Intake & Output 06/23/20 06/24/20 06/24/20 18:59 06:59 18:59 Intake Total 4550.516 4443 542.025 Output Total 850 830 310 Balance 543.872 337 232.025 Weight 87 kg Intake: IV 220 240 100 0.9 220 240 100 Intake, IV Titration 257.872 100 117.025 Amount Midazolam HCl 200 mg In 65.150 Sodium Chloride 0.9% 160 ml @ 10 MG/HR 10 mls/hr IV .Q10H [facility] Rx#: [id number] Midazolam HCl 50 mg In 28.2 Sodium Chloride 0.9% 40 ml @ 10 MG/HR 10 mls/hr IV .Q5H [facility] Rx#:[id number] fentaNYL (PF). 1,000 mcg 229.672 100 51.875 In Sodium Chloride 0.9% 80 ml @ Per Protocol IV . Q0M [facility] Rx#:[id number] Tube Feeding 826 767 295 Other 90 60 30 Output: Urine 850 830 310 Other: Voiding Method Indwelling Catheter Indwelling Catheter Indwelling Catheter # Bowel Movements 1 ABP, PAP, CO, CI - Last Documented Arterial Blood Pressure 122/49 - Exam GENERAL EXAM: sedated, intubated, 69-year-old white female, intubated, mechanically ventilated, sedated. Head: Atraumatic, normocephalic. HEENT: PERRLA, EOMI, nonicteric, no neck masses, no JVD, no stridor. Tubes are intact. CHEST: No chest wall deformity. Symmetrical expansion. LUNGS: Symmetrical chest expansion, crackles at the bases CVS: Regular rate and rhythm, normal S1 and S2, no gallops, no murmurs, no rubs ABDOMEN: Soft, nontender. No hepatosplenomegaly, normal bowel sounds, no guarding or rigidity. EXTREMITIES: No clubbing, no edema, no cyanosis, 2+ pulses and upper and lower extremities. MUSCULOSKELETAL: Could not assess, patient is sedated. SPINE: No scoliosis or deformity SKIN: No rashes CENTRAL NERVOUS SYSTEM: Sedated, intubated , could not assess - Labs CBC & Chem 7: 06/24/20 04:40 06/24/20 04:40 Labs: Abnormal Lab Results - Last 24 Hours (Table) 06/23/20 06/23/20 06/23/20 Range/Units 12:25 15:42 19:53 RBC (3.80-5.40) m/uL Hgb (11.4-16.0) gm/dL Hct (34.0-46.0) % Neutrophils # (1.3-7.7) k/uL Lymphocytes # (1.0-4.8) k/uL D-Dimer (<0.60) mg/L FEU ABG pCO2 (35-45) mmHg ABG pO2 (83-108) mmHg ABG HCO3 (21-25) mmol/L ABG Total CO2 (19-24) mmol/L ABG O2 Saturation (94-97) % Carbon Dioxide (22-30) mmol/L BUN (7-17) mg/dL Glucose (74-99) mg/dL POC Glucose (mg/dL) 159 H 209 H 204 H (75-99) mg/dL AST (14-36) U/L ALT (4-34) U/L Lactate Dehydrogenase (313-618) U/L C-Reactive Protein (<1.0) mg/dL Total Protein (6.3-8.2) g/dL Albumin (3.5-5.0) g/dL 06/23/20 06/24/20 06/24/20 Range/Units 23:39 03:52 04:40 RBC (3.80-5.40) m/uL Hgb (11.4-16.0) gm/dL Hct (34.0-46.0) % Neutrophils # (1.3-7.7) k/uL Lymphocytes # (1.0-4.8) k/uL D-Dimer (<0.60) mg/L FEU ABG pCO2 (35-45) mmHg ABG pO2 (83-108) mmHg ABG HCO3 (21-25) mmol/L ABG Total CO2 (19-24) mmol/L ABG O2 Saturation (94-97) % Carbon Dioxide 31 H (22-30) mmol/L BUN 42 H (7-17) mg/dL Glucose 119 H (74-99) mg/dL POC Glucose (mg/dL) 181 H 113 H (75-99) mg/dL AST 45 H (14-36) U/L ALT 41 H (4-34) U/L Lactate Dehydrogenase 1572 H (313-618) U/L C-Reactive Protein 4.0 H (<1.0) mg/dL Total Protein 5.5 L (6.3-8.2) g/dL Albumin 2.9 L (3.5-5.0) g/dL 06/24/20 06/24/20 06/24/20 Range/Units 04:40 04:41 05:42 RBC 3.41 L (3.80-5.40) m/uL Hgb 10.4 L (11.4-16.0) gm/dL Hct 32.6 L (34.0-46.0) % Neutrophils # 8.7 H (1.3-7.7) k/uL Lymphocytes # 0.8 L (1.0-4.8) k/uL D-Dimer 23.51 H (<0.60) mg/L FEU ABG pCO2 52 H (35-45) mmHg ABG pO2 58 L* (83-108) mmHg ABG HCO3 32 H (21-25) mmol/L ABG Total CO2 34 H (19-24) mmol/L ABG O2 Saturation 86.2 L (94-97) % Carbon Dioxide (22-30) mmol/L BUN (7-17) mg/dL Glucose (74-99) mg/dL POC Glucose (mg/dL) (75-99) mg/dL AST (14-36) U/L ALT (4-34) U/L Lactate Dehydrogenase (313-618) U/L C-Reactive Protein (<1.0) mg/dL Total Protein (6.3-8.2) g/dL Albumin (3.5-5.0) g/dL 06/24/20 Range/Units 08:11 RBC (3.80-5.40) m/uL Hgb (11.4-16.0) gm/dL Hct (34.0-46.0) % Neutrophils # (1.3-7.7) k/uL Lymphocytes # (1.0-4.8) k/uL D-Dimer (<0.60) mg/L FEU ABG pCO2 (35-45) mmHg ABG pO2 (83-108) mmHg ABG HCO3 (21-25) mmol/L ABG Total CO2 (19-24) mmol/L ABG O2 Saturation (94-97) % Carbon Dioxide (22-30) mmol/L BUN (7-17) mg/dL Glucose (74-99) mg/dL POC Glucose (mg/dL) 148 H (75-99) mg/dL AST (14-36) U/L ALT (4-34) U/L Lactate Dehydrogenase (313-618) U/L C-Reactive Protein (<1.0) mg/dL Total Protein (6.3-8.2) g/dL Albumin (3.5-5.0) g/dL Assessment and Plan Assessment: Impression: Acute hypoxic respiratory failure secondary to COVID-19 pneumonia. Patient was outside the window for BAM, treated initially with Decadron and vitamins as per the ER visit. She did receive since this admission toci, remains on Decadron and vitamin cocktail as well as COVID-19 cocktail. Patient was intubated on 06/18, not requiring any paralytics. New onset atrial fibrillation with RVR now on Xarelto. She was treated with amiodarone, heparin, and transition to Xarelto. Elevated inflammatory markers secondary to above. History of CVA and aphasia. Hypertension. 2 diabetes. Dyslipidemia. History of right-sided mastectomy for breast cancer. Former smoker. Dyslipidemia. Recommendation: Surgical consultation for PEG and tracheostomy placement. Continue ventilatory support. Continue PEEP at 14 since the ABG is marginal. Continue the COVID-19 cocktail. Patient did receive toci. Continue Xarelto. Continue enteral feeding. Continue Versed/sedation. Continue fentanyl. Hold sedation and fentanyl today and possibly assess mental status/sedation interruption/sedation holiday. Continue to monitor inflammatory markers. Continue to titrate FiO2 and PEEP down accordingly. Continue Decadron. Continue GI and DVT prophylaxis. Prognosis remains relatively guarded and the patient remains quite ill. Critical care time is over 30 minutes. Time with Patient: Greater than 30
[2020-06-24 11:57] LABS: Glucose,Whole Blood 288 mg/dL (75-99)
[2020-06-24] MEDS ORDERED: INSULIN ASPART (NovoLOG) 100 UNIT/ML VIAL SQ ONE (12:06)
--- NOTE | 2020-06-24 13:24 | P.GSCN ---
History of Present Illness Consult date: 06/24/20 History of present illness: CHIEF COMPLAINT: Shortness of breath Reason for consult: Tracheostomy and PEG tube placement HISTORY OF PRESENT ILLNESS: This is a 69-year-old female known history of diabetes, CVA, hyperlipidemia, breast cancer with right mastectomy and hyp ertension. She presented to the hospital on 06/12/2020 with worsening shortness of breath and was found have evidence of COVID-19 pneumonia. Patient's respiratory status declined and she required to be intubated on 06/18/2020. Patient currently remains in the ICU and has not been able to be weaned off of mechanical ventilation. Therefore, surgical service was placed for tracheostomy and PEG tube placement. Also during this admission patient developed atrial fibrillation and had been placed on Xarelto for anticoagulation. Last dose of Xarelto was yesterday evening, 06/23/2020. PAST MEDICAL HISTORY: See list. PAST SURGICAL HISTORY: See list. MEDICATIONS: See list. ALLERGIES: See list. SOCIAL HISTORY: No illicit drug use. REVIEW OF SYSTEMS: CONSTITUTIONAL: Denies fever or chills. HEENT: Denies blurred vision, vision changes, or eye pain. Denies hemoptysis CARDIOVASCULAR: Denies chest pain or pressure. RESPIRATORY: No shortness of breath. GASTROINTESTINAL: See HPI for pertinent findings HEMATOLOGIC: Denies bleeding disorders. GENITOURINARY: Denies any blood in urine or increased urinary frequency. SKIN: Denies pruitis. Denies rash. PHYSICAL EXAM: VITAL SIGNS: Reviewed GENERAL: Well-developed in no acute distress. HEENT: No sclera icterus. Extraocular movements grossly intact. Moist buccal mucosa. Head is atraumatic, normocephalic. No nasal drainage. ABDOMEN: Soft. Nondistended. Nontender NEUROLOGIC: Intubated and sedated LABORATORY DATA: WBC 9.9 Hgb 10.4 platelets 233 d-dimer 23.51 sodium 139 potassium 4.5 BUN 42 creatinine 0.52 Albumin 2.9 IMAGING: ASSESSMENT: 1. Acute hypoxic respiratory failure secondary to COVID-19 pneumonia 2. Severe protein calorie malnutrition 3. New onset of atrial fibrillation with rapid ventricular response during this admission and is anticoagulated with Xarelto PLAN: -Patient is scheduled for tracheostomy and PEG tube placement tomorrow, 06/25/[address] thompson -Hold Xarelto -Hold tube feedings after midnight Thank you for this consultation Physician Protein Chemist note has been reviewed by physician. Signing provider agrees with the documented findings, assessment, and plan of care. Past Medical History Past Medical History: Cancer, Diabetes Mellitus, Hyperlipidemia, Hypertension, Osteoarthritis (OA), Sleep Apnea/CPAP/BIPAP Additional Past Medical History / Comment(s): Pt tested covid + 06/07/20 at [facility] ER. Other hx: R breast cancer with mastectomy/chemo, NIDDM type II, neuropathy bilateral legs, BANDAR with Cpap, UTIs and polynephritis. History of Any Multi-Drug Resistant Organisms: None Reported Past Surgical History: Breast Surgery, Tubal Ligation Additional Past Surgical History / Comment(s): right mastectomy, bilateral cataract removals/lens implants. Past Anesthesia/Blood Transfusion Reactions: No Reported Reaction Smoking Status: Former smoker, Light tobacco smoker - Past Family History Mother Family Medical History: Respiratory Disorder Additional Family Medical History / Comment(s): Mother had lung problems and had heart valve surgery. Father Family Medical History: Cancer Additional Family Medical History / Comment(s): Father of stomach cancer. Medications and Allergies Home Medications Medication Instructions Recorded Confirmed Type Ascorbic Acid [Vitamin C] 1,000 mg PO DAILY 03/23/20 06/12/20 History Cholecalciferol [Vitamin D3 (25 25 mcg PO DAILY 03/23/20 06/12/20 History Mcg = 1000 Iu)] Cinnamon Bark [Cinnamon] 500 mg PO DAILY 03/23/20 06/12/20 History Gabapentin 300 mg PO DAILY@1200 03/23/20 06/12/20 History Gabapentin 600 mg PO BID 03/23/20 06/12/20 History Garlic 1 tab PO DAILY 03/23/20 06/12/20 History Glimepiride [Amaryl] 1.5 mg PO HS 03/23/20 06/12/20 History Glimepiride [Amaryl] 2 mg PO DAILY 03/23/20 06/12/20 History Lisinopril-Hctz 20-25 mg 1 tab PO DAILY 03/23/20 06/12/20 History [Zestoretic 20-25] Lovastatin [Mevacor] 20 mg PO HS 03/23/20 06/12/20 History [place]-3 Acid Ethyl Esters [Lovaza] 1 gm PO BID 03/23/20 06/12/20 History Sertraline [Zoloft] 50 mg PO DAILY 03/23/20 06/12/20 History Vitamin A 120 Mcg 120 mcg PO DAILY 03/23/20 06/12/20 History amLODIPine [Norvasc] 5 mg PO BID 03/23/20 06/12/20 History metFORMIN HCL ER [Glucophage Xr] 750 mg PO DAILY 03/23/20 06/12/20 History Coconut Oil 1 cap PO DAILY 04/14/20 06/12/20 History Cranberry Fruit Extract [Cranberry] 500 mg PO DAILY 04/14/20 06/12/20 History Lysine HCl [l-Lysine] 1,000 mg PO DAILY 04/14/20 06/12/20 History Tart Doll Extract 1 cap PO DAILY 04/14/20 06/12/20 History Turmeric/Turmeric Root Extract 1 cap PO DAILY 04/14/20 06/12/20 History [Turmeric 450-50 mg Capsule] Acetaminophen Tab [Tylenol Tab] 1,000 mg PO Q6H PRN 06/12/20 06/12/20 History Famotidine 20 mg PO BID PRN 06/12/20 06/12/20 History Allergies Allergy/AdvReac Type Severity Reaction Status Date / Time amoxicillin Allergy Unknown Verified 06/12/20 16:06 Penicillins Allergy Unknown Verified 06/12/20 16:06 phenytoin [From Dilantin] Allergy Unknown Verified 06/12/20 16:06 Sulfa (Sulfonamide Allergy Unknown Verified 06/12/20 16:06 Antibiotics) Surgical - Exam Vital Signs Temp Pulse Resp BP Pulse Ox 98.3 F 104 H 32 H 145/86 86 L 06/12/20 14:02 06/12/20 14:02 06/12/20 14:02 06/12/20 14:02 06/12/20 14:02 Results - Labs 06/24/20 04:40 06/24/20 04:40 Abnormal Lab Results - Last 24 Hours (Table) 06/23/20 06/23/20 06/23/20 Range/Units 15:42 19:53 23:39 RBC (3.80-5.40) m/uL Hgb (11.4-16.0) gm/dL Hct (34.0-46.0) % Neutrophils # (1.3-7.7) k/uL Lymphocytes # (1.0-4.8) k/uL D-Dimer (<0.60) mg/L FEU ABG pCO2 (35-45) mmHg ABG pO2 (83-108) mmHg ABG HCO3 (21-25) mmol/L ABG Total CO2 (19-24) mmol/L ABG O2 Saturation (94-97) % Carbon Dioxide (22-30) mmol/L BUN (7-17) mg/dL Glucose (74-99) mg/dL POC Glucose (mg/dL) 209 H 204 H 181 H (75-99) mg/dL AST (14-36) U/L ALT (4-34) U/L Lactate Dehydrogenase (313-618) U/L C-Reactive Protein (<1.0) mg/dL Total Protein (6.3-8.2) g/dL Albumin (3.5-5.0) g/dL 06/24/20 06/24/20 06/24/20 Range/Units 03:52 04:40 04:40 RBC 3.41 L (3.80-5.40) m/uL Hgb 10.4 L (11.4-16.0) gm/dL Hct 32.6 L (34.0-46.0) % Neutrophils # 8.7 H (1.3-7.7) k/uL Lymphocytes # 0.8 L (1.0-4.8) k/uL D-Dimer (<0.60) mg/L FEU ABG pCO2 (35-45) mmHg ABG pO2 (83-108) mmHg ABG HCO3 (21-25) mmol/L ABG Total CO2 (19-24) mmol/L ABG O2 Saturation (94-97) % Carbon Dioxide 31 H (22-30) mmol/L BUN 42 H (7-17) mg/dL Glucose 119 H (74-99) mg/dL POC Glucose (mg/dL) 113 H (75-99) mg/dL AST 45 H (14-36) U/L ALT 41 H (4-34) U/L Lactate Dehydrogenase 1572 H (313-618) U/L C-Reactive Protein 4.0 H (<1.0) mg/dL Total Protein 5.5 L (6.3-8.2) g/dL Albumin 2.9 L (3.5-5.0) g/dL 06/24/20 06/24/20 06/24/20 Range/Units 04:41 05:42 08:11 RBC (3.80-5.40) m/uL Hgb (11.4-16.0) gm/dL Hct (34.0-46.0) % Neutrophils # (1.3-7.7) k/uL Lymphocytes # (1.0-4.8) k/uL D-Dimer 23.51 H (<0.60) mg/L FEU ABG pCO2 52 H (35-45) mmHg ABG pO2 58 L* (83-108) mmHg ABG HCO3 32 H (21-25) mmol/L ABG Total CO2 34 H (19-24) mmol/L ABG O2 Saturation 86.2 L (94-97) % Carbon Dioxide (22-30) mmol/L BUN (7-17) mg/dL Glucose (74-99) mg/dL POC Glucose (mg/dL) 148 H (75-99) mg/dL AST (14-36) U/L ALT (4-34) U/L Lactate Dehydrogenase (313-618) U/L C-Reactive Protein (<1.0) mg/dL Total Protein (6.3-8.2) g/dL Albumin (3.5-5.0) g/dL 06/24/20 Range/Units 11:56 RBC (3.80-5.40) m/uL Hgb (11.4-16.0) gm/dL Hct (34.0-46.0) % Neutrophils # (1.3-7.7) k/uL Lymphocytes # (1.0-4.8) k/uL D-Dimer (<0.60) mg/L FEU ABG pCO2 (35-45) mmHg ABG pO2 (83-108) mmHg ABG HCO3 (21-25) mmol/L ABG Total CO2 (19-24) mmol/L ABG O2 Saturation (94-97) % Carbon Dioxide (22-30) mmol/L BUN (7-17) mg/dL Glucose (74-99) mg/dL POC Glucose (mg/dL) 288 H (75-99) mg/dL AST (14-36) U/L ALT (4-34) U/L Lactate Dehydrogenase (313-618) U/L C-Reactive Protein (<1.0) mg/dL Total Protein (6.3-8.2) g/dL Albumin (3.5-5.0) g/dL Diabetes panel 06/24/20 Range/Units 04:40 Sodium 139 (137-145) mmol/L Potassium 4.5 (3.5-5.1) mmol/L Chloride 104 (98-107) mmol/L Carbon Dioxide 31 H (22-30) mmol/L BUN 42 H (7-17) mg/dL Creatinine 0.52 (0.52-1.04) mg/dL Glucose 119 H (74-99) mg/dL Calcium 9.0 (8.4-10.2) mg/dL AST 45 H (14-36) U/L ALT 41 H (4-34) U/L Alkaline Phosphatase 65 (38-126) U/L Total Protein 5.5 L (6.3-8.2) g/dL Albumin 2.9 L (3.5-5.0) g/dL Calcium panel 06/24/20 Range/Units 04:40 Calcium 9.0 (8.4-10.2) mg/dL Albumin 2.9 L (3.5-5.0) g/dL Pituitary panel 06/24/20 Range/Units 04:40 Sodium 139 (137-145) mmol/L Potassium 4.5 (3.5-5.1) mmol/L Chloride 104 (98-107) mmol/L Carbon Dioxide 31 H (22-30) mmol/L BUN 42 H (7-17) mg/dL Creatinine 0.52 (0.52-1.04) mg/dL Glucose 119 H (74-99) mg/dL Calcium 9.0 (8.4-10.2) mg/dL Adrenal panel 06/24/20 Range/Units 04:40 Sodium 139 (137-145) mmol/L Potassium 4.5 (3.5-5.1) mmol/L Chloride 104 (98-107) mmol/L Carbon Dioxide 31 H (22-30) mmol/L BUN 42 H (7-17) mg/dL Creatinine 0.52 (0.52-1.04) mg/dL Glucose 119 H (74-99) mg/dL Calcium 9.0 (8.4-10.2) mg/dL Total Bilirubin 0.4 (0.2-1.3) mg/dL AST 45 H (14-36) U/L ALT 41 H (4-34) U/L Alkaline Phosphatase 65 (38-126) U/L Total Protein 5.5 L (6.3-8.2) g/dL Albumin 2.9 L (3.5-5.0) g/dL
[2020-06-24 17:06] LABS: Glucose,Whole Blood 290 mg/dL (75-99)
[2020-06-24] MEDS ORDERED: INSULIN DETEMIR (LEVEMIR) 100 UNIT/ML SYR SQ STA (17:31)
[2020-06-24 20:03] LABS: Glucose,Whole Blood 252 mg/dL (75-99)
[2020-06-24] MEDS: ATORVASTATIN 10 MG TAB PO SCH (20:16)
--- NOTE | 2020-06-24 21:14 | US ---
EXAMINATION TYPE: US venous doppler duplex UE LT DATE OF EXAM: 06/24/2020 COMPARISON: NONE CLINICAL HISTORY: r/o dvt. intubated ICU Covid patient with PICC line and swollen arm SIDE PERFORMED: Left Left Arm: Negative for DVT, limited assessment due to IV sites within antecubital fossa and left wris t with Tegaderm patches. Unable to view radial and ulnar veins due to these limitations Cephalic vein within upper arm did have noncompressible internal echoes with no flow seen Flow was seen around basilic PICC line. IMPRESSION: No evidence for DVT. Superficial vein thrombosis identified
--- NOTE | 2020-06-24 21:28 | P.PN ---
Subjective Pt could not provide information and it was obtained from staff and medical records This is a 69-year-old patient who follows with Dr. blake . presents with respiratory symptoms including cough for about 2 or 3 weeks. EMS was called out and they found the patient to be hypoxic with 46%. Patient was ventilated with a bag valve and pulse oxygenation improved. He was placed on a nonrebreather and brought here. Pt first placed on BiPAP. And then needed to be intubated. Patient chronic stable medical conditions include diabetes, hypertension, hyperlipidemia, history of breast cancer with right mastectomy. Admitted with acute severe bilateral COVID 19 pneumonia, acute severe hypoxic respiratory failure, acute metabolic encephalopathy, with work up with csf is unremarkable, a fib and RVR pt is currently intubated and mechanical ventilation, PEEP is 15 06/23/2020 Patient remains in the ICU sedated and intubated with pulmonary/critical care team on the case and help with the vent management. Patient today is lower through 12. Neurology team already signed off, altered mental status is due to her Covid and metabolic encephalopathy.Afebrile Labs reviewed, no significant change in CBC and BMP. Liver Enzymes only mildly elevated She is on Xarelto 20 mg, she is also on dexamethasone, vitamin C, vitamin D and zinc 06/24/2020 Patient remains in the ICU sedated and intubated with pulmonary/critical care team on the case and help with the vent management. Her PEEP today is 14. FiO2 50% breathing rate in 30s and tidal volume 400 Neurology team already signed off, altered mental status is due to her Covid and metabolic encephalopathy.Afebrile Labs reviewed, no significant change in CBC and BMP. Liver Enzymes only mildly elevated Patient to undergo tracheostomy and PEG tube replacement tomorrow She is on Xarelto 20 mg, she is also on dexamethasone, vitamin C, vitamin D and zinc [facility]/ Active Medications Generic Name Dose Route Start Last Admin Trade Name Freq PRN Reason Stop Dose Admin Acetaminophen 650 mg 06/12/20 15:49 06/13/20 21:46 Acetaminophen Suppository 650 Mg Supp RECTAL 650 mg Q4HR PRN Administration Fever And/ Or Mild Pain Artificial Tears 2 drops 06/19/20 13:00 06/24/20 18:01 Artificial Tears-Hypromellose Drops 15 Ml Btl BOTH EYES 2 drops QID DANITA Administration Ascorbic Acid 1,000 mg 06/13/20 09:00 06/24/20 08:16 Ascorbic Acid 500 Mg Tab PO 1,000 mg DAILY DANITA Administration Atorvastatin Calcium 10 mg 06/12/20 21:00 06/24/20 20:16 Atorvastatin 10 Mg Tab PO 10 mg HS DANITA Administration Chlorhexidine Gluconate 15 ml 06/18/20 09:00 06/24/20 20:16 Chlorhexidine Gluconate 15 Ml Cup MUCOUS MEM 15 ml BID DANITA Administration Cholecalciferol 25 mcg 06/12/20 15:45 06/24/20 08:17 Cholecalciferol 25 Mcg (1000 Iu) Tablet PO 25 mcg DAILY DANITA Administration Dexamethasone Sodium Phosphate 6 mg 06/13/20 16:45 06/24/20 08:16 Dexamethasone Sod Phosphate 10 Mg/Ml 1 Ml Vial IV 6 mg DAILY DANITA Administration Famotidine 20 mg 06/22/20 21:00 06/24/20 20:17 Famotidine 20 Mg Tab PO 20 mg Q12HR DANITA Administration Fentanyl Citrate 1,000 mcg/ 100 mls @ 0 mls/hr 06/19/20 07:45 06/24/20 15:10 Sodium Chloride IV 1.5 mcg/kg/hr .Q0M DANITA 12.915 mls/hr Administration Protocol Per Protocol Midazolam HCl 200 mg/ Sodium 200 mls @ 10 mls/hr 06/24/20 00:30 06/24/20 19:56 Chloride IV 11 mg/hr .Q10H DANITA 11 mls/hr Administration Protocol 10 MG/HR Insulin Aspart 0 unit 06/19/20 12:00 06/24/20 20:17 Insulin Aspart (Novolog) 100 Unit/Ml Vial SQ 8 unit Q4H DANITA Administration Protocol Insulin Aspart 10 unit 06/21/20 08:00 06/24/20 20:17 Insulin Aspart (Novolog) 100 Unit/Ml Vial SQ 10 unit Q4H DANITA Administration Insulin Detemir 46 unit 06/21/20 07:00 06/24/20 06:42 Insulin Detemir (Levemir) 100 Unit/Ml Syr SQ 46 unit DAILY@0700 DANITA Administration Miscellaneous Information 1 each 06/18/20 22:38 Potassium Replacement Protocol 1 Each Misc MISCELLANE DAILY PRN Per Protocol Protocol Miscellaneous Information 1 each 06/18/20 22:39 Magnesium Replacement Protocol 1 Each Misc MISCELLANE DAILY PRN Per Protocol Protocol Naloxone HCl 0.2 mg 06/12/20 15:49 Naloxone 0.4 Mg/Ml 1 Ml Vial IV Q2M PRN Opioid Reversal Sertraline HCl 50 mg 06/13/20 09:00 06/24/20 08:16 Sertraline 50 Mg Tab PO 50 mg DAILY DANITA Administration Sodium Chloride 10 ml 06/16/20 15:14 Sodium Chloride 0.9% Flush 10 Ml Syringe IV Q4HR PRN PICC Line Sodium Chloride 10 ml 06/23/20 09:00 06/23/20 09:54 Sodium Chloride 0.9% Flush 10 Ml Syringe IV 10 ml WEEKLY DANITA Administration Sodium Chloride 20 ml 06/16/20 15:14 Sodium Chloride 0.9% Flush 10 Ml Syringe IV Q4HR PRN PICC Line Zinc Sulfate 220 mg 06/24/20 09:00 06/24/20 08:16 Zinc Sulfate 220 Mg Cap PO 220 mg DAILY DANITA Administration Objective - Vital Signs Vital signs: Vital Signs Temp 99.5 F 06/24/20 08:00 Pulse 120 H 06/24/20 11:00 Resp 23 06/24/20 11:00 BP 159/80 06/24/20 11:00 Pulse Ox 87 L 06/24/20 11:00 Intake & Output 06/23/20 06/24/20 06/24/20 18:59 06:59 18:59 Intake Total 5781.794 9782 546.225 Output Total 850 830 310 Balance 543.872 337 236.225 Weight 87 kg Intake: IV 220 240 100 0.9 220 240 100 Intake, IV Titration 257.872 100 121.225 Amount Midazolam HCl 200 mg In 69.350 Sodium Chloride 0.9% 160 ml @ 10 MG/HR 10 mls/hr IV .Q10H DANITA Rx#: [id number] Midazolam HCl 50 mg In 28.2 Sodium Chloride 0.9% 40 ml @ 10 MG/HR 10 mls/hr IV .Q5H DANITA Rx#:[id number] fentaNYL (PF). 1,000 mcg 229.672 100 51.875 In Sodium Chloride 0.9% 80 ml @ Per Protocol IV . Q0M DANITA Rx#:[id number] Tube Feeding 826 767 295 Other 90 60 30 Output: Urine 850 830 310 Other: Voiding Method Indwelling Catheter Indwelling Catheter Indwelling Catheter # Bowel Movements 1 ABP, PAP, CO, CI - Last Documented Arterial Blood Pressure 122/49 - Exam -GENERAL: The patient is intubated and sedated HEENT: Pupils are round and equally reacting to light. EOMI. No scleral icterus. No conjunctival pallor. Normocephalic, atraumatic. No pharyngeal erythema. No thyromegaly. CARDIOVASCULAR: S1 and S2 present. No murmurs, rubs, or gallops. -PULMONARY: Chest is clear to auscultation, bilateral crepitation ABDOMEN: Soft, nontender, nondistended, normoactive bowel sounds. No palpable organomegaly. MUSCULOSKELETAL: No joint swelling or deformity. EXTREMITIES: No cyanosis, clubbing, or pedal edema. NEUROLOGICAL: Gross neurological examination did not reveal any focal deficits. SKIN: No rashes. no petechiae. - Labs CBC & Chem 7: 06/24/20 04:40 06/24/20 04:40 Labs: Abnormal Lab Results - Last 24 Hours (Table) 06/23/20 06/23/20 06/23/20 Range/Units 12:25 15:42 19:53 RBC (3.80-5.40) m/uL Hgb (11.4-16.0) gm/dL Hct (34.0-46.0) % Neutrophils # (1.3-7.7) k/uL Lymphocytes # (1.0-4.8) k/uL D-Dimer (<0.60) mg/L FEU ABG pCO2 (35-45) mmHg ABG pO2 (83-108) mmHg ABG HCO3 (21-25) mmol/L ABG Total CO2 (19-24) mmol/L ABG O2 Saturation (94-97) % Carbon Dioxide (22-30) mmol/L BUN (7-17) mg/dL Glucose (74-99) mg/dL POC Glucose (mg/dL) 159 H 209 H 204 H (75-99) mg/dL AST (14-36) U/L ALT (4-34) U/L Lactate Dehydrogenase (313-618) U/L C-Reactive Protein (<1.0) mg/dL Total Protein (6.3-8.2) g/dL Albumin (3.5-5.0) g/dL 06/23/20 06/24/20 06/24/20 Range/Units 23:39 03:52 04:40 RBC (3.80-5.40) m/uL Hgb (11.4-16.0) gm/dL Hct (34.0-46.0) % Neutrophils # (1.3-7.7) k/uL Lymphocytes # (1.0-4.8) k/uL D-Dimer (<0.60) mg/L FEU ABG pCO2 (35-45) mmHg ABG pO2 (83-108) mmHg ABG HCO3 (21-25) mmol/L ABG Total CO2 (19-24) mmol/L ABG O2 Saturation (94-97) % Carbon Dioxide 31 H (22-30) mmol/L BUN 42 H (7-17) mg/dL Glucose 119 H (74-99) mg/dL POC Glucose (mg/dL) 181 H 113 H (75-99) mg/dL AST 45 H (14-36) U/L ALT 41 H (4-34) U/L Lactate Dehydrogenase 1572 H (313-618) U/L C-Reactive Protein 4.0 H (<1.0) mg/dL Total Protein 5.5 L (6.3-8.2) g/dL Albumin 2.9 L (3.5-5.0) g/dL 06/24/20 06/24/20 06/24/20 Range/Units 04:40 04:41 05:42 RBC 3.41 L (3.80-5.40) m/uL Hgb 10.4 L (11.4-16.0) gm/dL Hct 32.6 L (34.0-46.0) % Neutrophils # 8.7 H (1.3-7.7) k/uL Lymphocytes # 0.8 L (1.0-4.8) k/uL D-Dimer 23.51 H (<0.60) mg/L FEU ABG pCO2 52 H (35-45) mmHg ABG pO2 58 L* (83-108) mmHg ABG HCO3 32 H (21-25) mmol/L ABG Total CO2 34 H (19-24) mmol/L ABG O2 Saturation 86.2 L (94-97) % Carbon Dioxide (22-30) mmol/L BUN (7-17) mg/dL Glucose (74-99) mg/dL POC Glucose (mg/dL) (75-99) mg/dL AST (14-36) U/L ALT (4-34) U/L Lactate Dehydrogenase (313-618) U/L C-Reactive Protein (<1.0) mg/dL Total Protein (6.3-8.2) g/dL Albumin (3.5-5.0) g/dL 06/24/20 06/24/20 Range/Units 08:11 11:56 RBC (3.80-5.40) m/uL Hgb (11.4-16.0) gm/dL Hct (34.0-46.0) % Neutrophils # (1.3-7.7) k/uL Lymphocytes # (1.0-4.8) k/uL D-Dimer (<0.60) mg/L FEU ABG pCO2 (35-45) mmHg ABG pO2 (83-108) mmHg ABG HCO3 (21-25) mmol/L ABG Total CO2 (19-24) mmol/L ABG O2 Saturation (94-97) % Carbon Dioxide (22-30) mmol/L BUN (7-17) mg/dL Glucose (74-99) mg/dL POC Glucose (mg/dL) 148 H 288 H (75-99) mg/dL AST (14-36) U/L ALT (4-34) U/L Lactate Dehydrogenase (313-618) U/L C-Reactive Protein (<1.0) mg/dL Total Protein (6.3-8.2) g/dL Albumin (3.5-5.0) g/dL Assessment and Plan Assessment: -Acute severe bilateral COVID 19 pneumonia, diagnosed 5 days before admission, with symptoms present 2-3 weeks prior to that.-Not improving -Acute severe hypoxic respiratory failure, secondary to COVID 19 slow to respond -Acute delirium and acute metabolic encephalopathy from COVID 19 pneumonia -Diabetes mellitus type 2 on oral hypoglycemic, uncontrolled with hyperglycemia secondary to steroids -Essential hypertension -Diabetic peripheral neuropathy -Hyperlipidemia -Patient underwent lumbar puncture. CSF benign. -Significant hypernatremia with hyperchloremia.-Corrected -Paroxysmal atrial fibrillation with rapid ventricle [id number] rhythm Plan: This is a pleasant 69 years old female who presents with Covid pneumonia and hypoxia. Continue with steroids, IV fluids, continue with vitamin C, vitamin D and zinc. Continue with Xarelto and monitor d-dimer. Neurology and Pulmonary/critical care team on the case and follow-up with a recommendation. Patient is scheduled for tracheostomy and PEG tube, hold Xarelto Pt is on vitamin c, vitamin D and zinc, also on dexamethasone, Xarelto 20 mg daily. DVT and GI prophylaxis
[2020-06-25 00:24] LABS: Glucose,Whole Blood 132 mg/dL (75-99)
[2020-06-25] MEDS: INSULIN ASPART (NovoLOG) 100 UNIT/ML VIAL SQ SCH ×14 (00:25→23:21)
[2020-06-25 04:06] LABS: Glucose,Whole Blood 128 mg/dL (75-99)
[2020-06-25 05:19] LABS: ABG Base Excess 7.9 mmol/L; ABG HCO3 33 mmol/L (21-25); ABG Oxygen Saturation 88.4 % (94-97); ABG PCO2 53 mmHg (35-45); ABG PO2 61 mmHg (83-108); ABG TCO2 34 mmol/L (19-24); Allen Test Performed? Yes
[2020-06-25 05:41] LABS: Basophils % (A) 0 %; Eosinophils # (A) 0.1 k/uL (0-0.7); Eosinophils % (A) 1 %; HCT 32.3 % (34.0-46.0); HGB 10.6 gm/dL (11.4-16.0); Hypochromasia Slight; Lymphocytes # (A) 0.9 k/uL (1.0-4.8); Lymphocytes % (A) 7 %; MCH 31.4 pg (25.0-35.0); MCHC 32.9 g/dL (31.0-37.0); MCV 95.4 fL (80.0-100.0); Mean Platelet Volume 9.2; Monocytes # (A) 0.3 k/uL (0-1.0); Monocytes % (A) 2 %; Neutrophils # (A) 10.6 k/uL (1.3-7.7); Neutrophils % (A) 89 %; Platelet Count 239 k/uL (150-450); RBC 3.38 m/uL (3.80-5.40); RDW 15.5 % (11.5-15.5); WBC 11.9 k/uL (3.8-10.6)
[2020-06-25 05:49] LABS: ALT 47 U/L (4-34); AST 44 U/L (14-36); African American GFR (CKD) >90 (>60 ml/min/1.73 sqM); Albumin 2.8 g/dL (3.5-5.0); Alkaline Phosphatase 69 U/L (38-126); Anion Gap 3 mmol/L; Blood Urea Nitrogen 41 mg/dL (7-17); C Reactive Protein 7.5 mg/dL (<1.0); Calcium 8.8 mg/dL (8.4-10.2); Carbon Dioxide 34 mmol/L (22-30); Chloride 104 mmol/L (98-107); Glucose 133 mg/dL (74-99); LDH 1510 U/L (313-618); Non-African American GFR(CKD) >90 (>60 ml/min/1.73 sqM); Potassium 4.3 mmol/L (3.5-5.1); Sodium 141 mmol/L (137-145); Total Bilirubin 0.5 mg/dL (0.2-1.3); Total Protein 5.5 g/dL (6.3-8.2)
[2020-06-25 06:02] LABS: Prothrombin Time 10.7 sec (9.0-12.0)
[2020-06-25] MEDS: fentaNYL (PF). 1,000 MCG in SODIUM CHLORIDE 0.9% 80 ML IV SCH ×3 (06:54→23:17)
--- NOTE | 2020-06-25 08:22 | PCN ---
PROCEDURE NOTE PROCEDURE: Left radial arterial line placement. PREOPERATIVE DIAGNOSIS: Acute hypoxic respiratory failure, COVID-19 pneumonia. POSTOPERATIVE DIAGNOSIS: Acute hypoxic respiratory failure, COVID-19 pneumonia. ARTERIAL LINE PLACEMENT: Indications: Hemodynamic monitoring. A time-out was completed verifying correct patient, procedure, site, positioning, and implant(s) or special equipment if applicable. Yandel's test was performed to ensure adequate perfusion. The patient's left wrist was prepped and draped in sterile fashion. 1% Lidocaine was used to anesthetize the area. An 18G Arrow arterial line was introduced into the left radial artery. The catheter was threaded over the guide wire and the needle was removed with appropriate pulsatile blood return. Blood loss was minimal. The catheter was then sutured in place to the skin and a sterile dressing applied. Perfusion to the extremity distal to the point of catheter insertion was checked and found to be adequate. The patient tolerated the procedure well and there were no complications. Procedure was tolerated very well. Good waveform was noted. Line was flushed, sutured in place. Sterile dressing was applied. No immediate complications. MMODL / IJN: [id number] /
[2020-06-25 08:56] LABS: Glucose,Whole Blood 219 mg/dL (75-99)
[2020-06-25] MEDS: FAMOTIDINE 20 MG TAB PO SCH ×2 (09:01→19:36)
[2020-06-25] MEDS: SERTRALINE 50 MG TAB PO SCH (09:01)
[2020-06-25] MEDS: CHLORHEXIDINE GLUCONATE 15 ML CUP MUCOUS MEM SCH ×2 (09:01→20:12)
[2020-06-25] MEDS: ARTIFICIAL TEARS-HYPROMELLOSE DROPS 15 ML BTL BOTH EYES SCH ×4 (09:01→21:11)
[2020-06-25] MEDS: ASCORBIC ACID 500 MG TAB PO SCH (09:01)
[2020-06-25] MEDS: ZINC SULFATE 220 MG CAP PO SCH (09:01)
[2020-06-25] MEDS: CHOLECALCIFEROL 25 MCG (1000 IU) TABLET PO SCH (09:01)
[2020-06-25] MEDS: DEXAMETHASONE SOD PHOSPHATE 10 MG/ML 1 ML VIAL IV SCH (09:03)
--- NOTE | 2020-06-25 09:04 | XR ---
EXAMINATION TYPE: XR chest 1V portable DATE OF EXAM: 06/25/2020 COMPARISON: Chest x-ray 06/24/2020 HISTORY: Intubated TECHNIQUE: Single frontal view of the chest is obtained. FINDINGS: Endotracheal tube, orogastric tube, left-sided PICC line are overlying appropriate positio ns. Bilateral interstitial and airspace disease is similar to prior exam. There is no evident pneumot horax or sizable effusion. Cardiac mediastinal silhouette is stable. IMPRESSION: There is no significant interval change. Correlate for pneumonia, ARDS, edema
[2020-06-25 12:13] LABS: Glucose,Whole Blood 121 mg/dL (75-99)
--- NOTE | 2020-06-25 12:55 | P.PN ---
Subjective Progress Note Date: 06/25/20 Principal diagnosis: Acute hypoxic failure secondary to COVID-19 pneumonia. 69-year-old white female patient who presented to the emergency department on 06/12/2020 at 1400 in the afternoon with complaints of shortness of breath, and her first onset of symptoms was approximately 2-3 weeks ago. She tested positive for COVID 19 on 06/07/2020. Patient was seen in the emergency department at that time, and was having symptoms of fatigue, shortness of breath and cough. She does have multiple comorbidities including hypertension, diabetes mellitus, dyslipidemia, history of breast cancer, patient is a former smoker. Was outside the window for monoclonal antibody, she was sent home on Decadron, and vitamins. Chest x-ray at that time showed interstitial infiltrates. Patient returned with worsening symptoms, chest x-ray on the 2020 showed interval bilateral diffuse infiltrates. In addition patient was confused, on arrival of the EMS to the scene patient was severely hypoxemic with a pulse ox of only 46%. She was bagged valve ventilated with improvement in her oxygen, she was placed on BiPAP support. Brain CT showed no acute intracranial abnormality. Angiography CT showed no acute abnormality of the head/neck, and a moderate stenosis of the right proximal ICA. CBC was positive for lymphopenia with lymphocyte count 0.6, d-dimer was 1.36, sodium is 143, potassium is 3.9, chloride is 108, CO2 22, BUN is 50, creatinine is 1, glucose level was 321, plasma lactic acid is 1.3, AST was 84, ALT was 31, alk phos was 50, troponin was 0.104, CRP was 334. Patient was started on IV Decadron in the emergency department, she remains on BiPAP support, currently at pressures of 12 and 6 and FiO2 100%, she appears to have increased work of breathing, she is not able to answer questions related to dyspnea, repeat blood gas was done showing pO2 of 68, pCO2 45, pH of 7.39 and subsequently her BiPAP settings were adjusted to 14/7 and FiO2 100%, patient is awaiting a bed in the intensive care unit, she is awake and alert, she did answer some simple questions yes or no for me while on BiPAP support, we'll start the patient on IL-6 MAB, Tocilizumab. We'll continue to closely follow her clinical course, continues to deteriorate patient required intubation and placement on mechanical ventilatory supp On today's evaluation of 06/14/2020 the patient is being seen for a follow-up regarding acute hypoxic respiratory failure and COVID 19 pneumonia. The patient was status post positive on 06/07/2020 and the patient was symptomatic prior to that. The patient presented with hypoxic respiratory failure and the patient was placed on a BiPAP which is currently at the pressure of 14/7 cm of water and FiO2 of 900%. Chest x-ray showing bilateral patchy by troponin infiltrates consistent with pneumonia. The patient was started on steroids and Tocilizumab was ordered. The patient is having increased shortness of breath even while on the BiPAP. The patient is quite dyspneic even while on the BiPAP and is unable to complete full sentences. Blood gases from yesterday was noted. CT angiogram of the head and neck showed moderate stenosis of the right proximal ICA. CAT scan of the brain was negative., CRP of 356, troponin was 0.19 and the patient's d-dimer was 2.13. The patient is currently on Decadron 6 mg IV every 24 hours. The patient is on Lovenox 40 mg subcu every 24 hours. The patient on Levemir insulin 20 units daily at bedtime that was started yesterday the patient will be taken off the insulin drip. Currently the patient is also on various hypertensive medications including Zestoretic and Kl clonidine patch and Norvasc. neurologically, the patient is still quite somnolent. She is moving all 4 extremities. No neck stiffness. This encephalopathy is probably related to Covid 19 infection. Neuro is also on the case. His blood work, the sodium level is at 154 with a BUN of 61 and creatinine of 0.9. The patient on IV fluid and currently receiving 0.9 at the rate of 100 mL an hour. On 06/15/2020, the patient is being seen in follow-up in the intensive care unit. This is a case of 69-year-old female patient with Covid associated pneumonia. The patient remains in the emergency department awaiting her bed in the ICU. Currently she is on a BiPAP at a pressure of 14/7 cm of water with an FiO2 of 100%. The patient is quite synchronous and tolerated the BiPAP treatment. Her current tidal volume generated is around 840 mL with a respiratory rate of 29 and a minute ventilation of 23. Chest x-ray from today has not been done and this is supposed to be repeated. The chest x-ray from yesterday was showing diffuse bilaterally pulmonary infiltrates more so in the left perihilar area. No new blood gases. D-dimer is today at 34 and the CRP level is at 67. LDH is still pending for now. Neurologically, the patient is still lethargic and somnolent and encephalopathic. She is on Precedex running at 0.5 mcg/kg per minute. Lumbar puncture was done yesterday and the patient was found to have a CSF RBC of 7, nucleated cells were only a 2, glucose was 79 and the protein was slightly elevated at 66. This is not consistent with bacterial meningitis. It may be consistent with viral encephalopathy. Gram st ain of the CSF was negative. Cultures are also negative. I would say clinically she is essentially unchanged. She is more comfortable while being on Precedex. She is hemodynamically stable and she is afebrile. She is still receiving IV fluids in the form of D5 half-normal saline at the rate of 1 25 mL an hour. She is currently off the insulin drip. Her blood sugar is at 128 and the patient is on Levemir insulin 20 units daily at bedtime along with a sliding scale coverage. The patient's renal function currently is stable with a BUN of 63 and a creatinine of 0.8. Sodium level was improving and his sodium level was on the decline it was already down to 151. 06/16/2020, the patient remains on a BiPAP in the emergency department a pressure of 14/7 and FiO2 is currently at 80% and her current pulse ox is around 96%. Her generated tidal volume is around 816 with a respiratory rate of 30 and a minute volume of 25 L per minute. I took her off the Precedex yesterday the patient was quite lethargic. This morning, she is more arousable. She is extremely weak. She is following some simple commands. She is wiggling her toes and moving her arms upon demand. She cannot hold a conversation as the patient is very much BiPAP dependent at this point in time. She easily desaturates once she is off the BiPAP. She is hemodynamically stable for now. The chest x-ray showing bilateral pulmonary infiltrates, slightly improved compared to yesterday. In terms of her blood work, the patient's blood sugars at 250. She is currently on D5 half-normal saline at the rate of 150 mL an hour. Her sodium level is improved and is down to 145 and a BUN is 36 with a creatinine of 0.7. Her CRP is down to 41. Her LDH level is up to 3339. Rest of the blood work and electrodes are all within normal limits and as mentioned the sodium level is improved and is down to 145. Her lumbar puncture was done and the findings are essentially related to Covid 19 encephalopathy. Case was discussed with neurology. As for the blood sugars, the patient's blood sugars are running in the mid 200s and the patient is on a sliding scale coverage. No major edema in lower extremities. Cardiac rhythm is sinus for now. 06/17/2020, the patient is being seen in follow-up. Unfortunately, she has remained in the emergency and she hasn't been able to find her way up to the ICU. I have her today on a BiPAP at a pressure of 16/8 cm of water with an FiO2 of 100%. The patient was doing well throughout the night and earlier this morning she became significantly more short of breath, hypoxic and tachycardic. Currently she is struggling with her breathing. She is using excessive muscle breathing even while being on a BiPAP. She is able to generate adequate tidal volumes of around 800 mL and her respiratory rate is in the mid 40s. She is tachycardic with a heart rate of 150, sinus. She is unable to speak. She is anxious. She was given a total of 4 mg of morphine which helped her with the breathlessness and shortness of breath. She is awake and arousable and she is moving all 4 extremities. As mentioned earlier, she is a case of COVID-19 related pneumonia. The patient was treated with a combination of treatment and the patient was given Decadron 6 mg IV every 24 hours. The patient also received Tocilizumab 50 mg IV on 06/13/2020. She was having some degree of encephalopathy that was thought to be a viral encephalopathy in the lumbar puncture was done and it showed some mild elevation of the protein. Otherwise negative. Repeat chest x-ray from today has not been completed. This is in progress. Cardiac rhythm is sinus. The patient is likely headed to intubation/ mechanical ventilation. 06/18/2020, the patient is currently in the intensive care unit. She seems much more comfortable while being on Precedex is running at 0.7 mcg/kg per minute. She is very evasive ventilator and the patient is currently on a pressure of 16/8 with an FiO2 of 100%. She was struggling with her breathing yesterday and she seems to be essentially the same as yesterday without any interval improvement.. Her current respiratory rate is in the order of mid 30s and she is able to generate adequate amount of tidal volume. She is unresponsive. She is on Precedex. Her breathing is unlabored. She is using accessory muscles of breathing. She has less tachycardic to yesterday. She seems to be also less anxious. She is taking morphine on an as-needed basis for shortness of breath and anxiety. On today's blood gas, pH is 7.48 with a pCO2 of 36 and pO2 of 51. Her current pulse ox is 91%. She remains on Decadron 6 mg IV every 24 hours. The patient also received Tocilizumab 720 mg iv. The patient remains also on anticoagulation on Lovenox 45 mg subcu she will 12 hours. In terms of the inflammatory markers, the patient has a d-dimer of above 34, and the patient has a LDH level of 3728 and the patient is a CRP of 29. The inflammatory markers continued to be quite elevated and essentially unchanged compared to yesterday. She is afebrile for now and she is hemodynamically stable on no pressors. She is receiving nutrition via TPN and the patient is decline in her left upper extremity. CSF cultures have been negative. No neck stiffness. Neurology is also on the case and the working diagnosis is COVID-19 related encephalopathy. 06/19/2020 on seeing the patient in the intensive care unit. Noted the patient was brought in to the ICU yesterday and she became progressively more confused, tachypneic, tachycardic and hypoxic and she was failing also BiPAP which she was able to tolerate for a few days. At that point, the decision was to intubate the patient placed on mechanical ventilator. Following intubation, the patient was placed on sedation with propofol and currently propofol is running at 40 mg/kg/m. She also had to be paralyzed and the patient is currently on Nimbex running at 2 mcg/kg per minute. She was taken off the Precedex. For now, she is well sedated and paralyzed on a mechanical ventilator and she is currently on assist control mode rate of 28 with a tidal volume of 400 and FiO2 of 70% with a PEEP of 15. At peak airway pressure on the mechanical ventilator is 33. Static pressure is 31. No orotracheal secretions. The chest x-ray from today showing adequate positioning of the orotracheal tube. The patient also has a orogastric tube in place. The patient had diffuse breath and pulmonary infiltrates consistent with COVID-19 related pneumonia/ARDS. Her d-dimer was elevated at 35 and the patient was receiving 45 mg of subcu Lovenox every 12 hours. LDH from today is 2544 and a CRP level is at 3.4 and both are elevated. Most recent blood gases from this morning shows a pH of 7.39 with a pCO2 of 47 and pO2 of 79. The patient remains on steroids and she is receiving Decadron 6 g IV every 24 hours. Earlier during the shift, the patient became hypotensive and she had to be placed on pressors and the patient is currently on norepinephrine infusion running at 0.06 mcg/kg per minute. Earlier this morning at around 3:15 AM, the patient also went into new onset atrial fibrillation with rapid ventricular response. She was given amiodarone bolus 150 mg IV and following that she was given a amiodarone at 1 mg per minute for loading protocol. There was no impact on her heart rate. The patient was also given Cardizem, bolus initially at a dose of 5 mg IV and following that started on a maintenance of 10 mg an hour. She is currently still having atrial fibrillation and her heart rate is in the 130 to 140 range. Blood pressure is soft and the patient is stranding thousand becoming hypotensive. Urine output is order of early cc an hour. IV fluids are running at 20 mL an hour and the patient is on enteral feeding for nutritional support in the form of vital high protein at the rate of 20 mL an hour and the goal is at 38. In terms of her CSF cultures, if very much came back negative. The patient had over the encephalopathy prior to her getting intubated. The triglyceride at baseline prior to her initiation of propofol infusion was 594. I am inclined to switching this patient alternatives sedation. She was on Precedex however this was not effective in combination with fentanyl. I will consider adding Versed infusion. 06/20/2020, the patient is intubated on a mechanical ventilator and she is currently in the intensive care unit. After being on a BiPAP for several days, the patient decompensated. She presented to us with COVID-19 related pneumonia and encephalopathy. She was on Precedex and BiPAP for extended period of time and ultimately she failed and she was intubated and placed on a mechanical ventilator. Propofol was discontinued as the patient was having an elevated triglyceride level and the patient is currently on Versed running at 5 mg an hour and fentanyl running at 1 mcg/kg per minute. The patient is currently off paralytics. He was discontinued yesterday. In terms of treatment, the patient remains on assist control mode of mechanical ventilation. She is on a tidal volume of 400 with an FiO2 of 70% and a PEEP is at 15 with a respiratory rate of 28 and this is volume cycle assist-control mode. The blood gas showed a pH of 7.39 with a pCO2 50 and pO2 of 64. The chest x-ray from today is showing diffuse interstitial infiltrates bilaterally. Overall findings are essentially unchanged compared to yesterday. Orotracheal tube remains in a good location. The peak anesthetic pressures are 31 and 30 respectively. The patient's lightheadedness a mechanical ventilator and she is currently off paralytics. Meanwhile, at LDH level is at 2253 which is comparable to yesterday and his CRP level from yesterday was at 3.4. Her d-dimer level is at 10.3. She did have a bout of atrial fibrillation yesterday with rapid ventricular response. She was treated with a combination of amiodarone drip and a Cardizem drip. Cardizem drip has been discontinued. Amiodarone drip is running at 0.5 mg per minute and the patient's cardiac rhythm is back in 2 sinus tachycardia and she converted back to sinus yesterday morning. The patient is also on IV heparin infusion. Recommendations are to discontinue the amiodarone for now and keep the IV hepar in for another 24 hours. In terms of hemodynamics, the patient has been off pressors since yesterday. She was running only a low dose of norepinephrine infusion. Currently is on IV fluids running at the rate of 20 mL an hour and the net fluid balance has been +1.6 L since yesterday. Remains on Decadron 6 mg IV every 24 hours. Remains on IV heparin for now. Levemir insulin 36 units for blood sugar control along with NovoLog Scale coverage. Blood sugars continued to be quite elevated. NovoLog 10 units 4 times a day will be also added in combination with sliding scale coverage. On 06/21/2020 patient seen in intensive care unit, patient remains intubated, sedated on assist control mode of ventilation with a rate of 28, tidal vitamins 400, FiO2 of 70%, and PEEP of 15, this morning's blood gas shows a pO2 of 77, pCO2 48, and pH of 7.42, patient's chest x-ray today shows ET tube, NG tube, right-sided PICC line in appropriate positions, bilateral airspace disease similar to the prior exam, no evident pneumothorax or sizable pleural effusion. In terms of drips, patient is on 0.9 normal saline at a rate of 20 ML per hour, she is on Versed at 11 mg per hour, and fentanyl drip is at 1.5 mics per kilo per minute, to prevent has been off in view of elevated triglyceride levels, she is receiving nutritional support in the form of vital high protein at a rate of 38 which is goal with standard water flushes. The rest of the blood work has been reviewed today showing white blood cell, 9.5, hemoglobin of 9.9, platelet count is 214, d-dimer is 5.35 which is improved from 10.39 on yesterday's labs, sodium is 142, potassium is 4.3, chloride is 110, CO2 30, BUN of 48, creatinine 0.74, LFTs are improving, AST and ALT are 45 and 42 respectively, alkaline phosphatase is within normal range at 86 today which is also improved, LDH is trending down, at 1816 on today's labs, CRP is 1.8. In terms of therapy patient is currently on Decadron at 6 mg daily IV, she remains off paralytics, she did have a run of A. fib with RVR for which she had Cardizem drip started, she has not had recurrence of A. fib RVR, she was on heparin infusion which we can switch back over to Lovenox at intermediate doses in view of improving d-dimer and no recurrence of arrhythmias. Echocardiogram showed preserved LV function of 55%, mild MR, and mild TR, no evidence of pulmonary hypertension moderate en largement of the right ventricle. Her blood sugar control has improved, and patient is calm combination of Levemir 46 units daily in addition to NovoLog sliding scale and 10 units of additional NovoLog in addition to sliding scale 4 times daily. Her CSF cultures have shown no growth thus far, cats, mild elevation of temperature, but low-grade fever, with a T-max of 99.8 Patient was reevaluated today on 06/22/2020, remains intubated and mechanically ventilated. Her assist-control rate is 28, tidal volume is 400, FiO2 is 55%, PEEP is 15. Peak airway pressure is 29 static pressures 27. ABG this morning showed a pO2 of 66 pCO2 of 50 pH of 7.42. Remains on Versed at 9 mg per hour, and fentanyl at 1.5 mcg/kg/h. Patient is also on IV fluid at 0.9 normal saline, receiving tube feeding at 58 ML per hour. Patient was switched to Xarelto. From Lovenox. CBC is relatively normal. Her d-dimer is 10.74. Electrolytes are normal. Renal profile is normal. LDH is 1546., Steadily improving, it was as high as 3700 Patient was reevaluated today on 06/23/2020, remains in the ICU, intubated and mechanically ventilated. She is on assist control rate of 28 tidal volume is 400 FiO2 50% PEEP remains 15. I did cut down the PEEP to 12. ABG showed a pO2 of 61 pCO2 of 46 pH of 7.44. Patient remains on Versed and fentanyl, not requiring any Nimbex, Versed is 10 mg per hour, and fentanyl at 1.5 mcg/kg/h. She is on enteral feeding using vital hP and 59/59. Patient is hemodynamically stable, she is in sinus rhythm, peak airway pressure is 28, and static pressure is 17. Chest x-ray continues to show bilateral of disease consistent with COVID-19 pneumonia. Basic metabolic profile is normal renal profile is normal LDH is 1628. C-reactive protein is 2.7 BC is relatively normal. Spinal fluid cultures have been negative from a week ago Patient was reevaluated today on 06/24/2020, remains in the ICU, intubated and mechanically ventilated. He is on assist control rate of 28 tidal volumes 400 FiO2 50% PEEP of 14. ABG showed a pO2 of 58 pCO2 of 52 pH of 7.40. Patient is on fentanyl at 1.5 and Versed at 11 mg per hour. My plan is to give the patient a sedation holiday. And assess mental status. Although the patient remains on relatively high PEEP, she is not ready to wean, and I would recommend tracheostomy and PEG tube placement on this patient. Remains on vital Hp at 59 mL per hour. Surgical consultation for tracheostomy and PEG tube was initiated. WBC count is 9.9 hemoglobin is 10.4. Electrolytes are normal. Renal profile is normal. LDH remains high at 1572. C-reactive protein is 4.0. Both seem to be trending down. And showing improvement. Chest x-ray continues to show bilateral pneumonia. Not much of a global director air and climate change the last few days. Patient was reevaluated today on 06/25/2020, remains in the ICU, intubated and mechanically ventilated. She is now on assist control rate of 28 tidal volume 400 FiO2 50% and PEEP at 14. Her ABG showed a pO2 of 61 pCO2 of 53 pH of 7.40. Hence no changes were made in the ventilator settings. The patient remains on Versed at 11 mg per hour, fentanyl at 1.5 mcg/kg/h, and IV fluid at KVO. Chest x-ray continues to show basically bibasilar infiltrates. Patient is scheduled to have PEG and tracheostomy tube placement today. Her enteral feeding is presently on hold. CBC is relatively normal. Electrolytes and renal profile are relatively normal. LDH is 1510, C-reactive protein is 7.5. Objective - Vital Signs Vital signs: Vital Signs Temp 98.2 F 06/25/20 08:00 Pulse 98 06/25/20 11:00 Resp 31 H 06/25/20 11:00 BP 153/80 06/25/20 11:00 Pulse Ox 90 L 06/25/20 11:00 Intake & Output 06/24/20 06/25/20 06/25/20 18:59 06:59 18:59 Intake Total 3878.714 7461.35 80 Output Total 1000 940 325 Balance 207.350 474.35 -245 Weight 89.5 kg 89.5 kg Intake: IV 240 260 80 0.9 240 260 80 Intake, IV Titration 169.350 297.35 Amount Midazolam HCl 200 mg In 69.350 97.35 Sodium Chloride 0.9% 160 ml @ 10 MG/HR 10 mls/hr IV .Q10H [facility]AN[facility] Rx#: [id number] fentaNYL (PF). 1,000 mcg 100.000 200 In Sodium Chloride 0.9% 80 ml @ Per Protocol IV . Q0M DANITA Rx#:[id number] Tube Feeding 708 767 0 Other 90 90 Output: Urine 1000 940 325 Other: Voiding Method Indwelling Catheter Indwelling Catheter ABP, PAP, CO, CI - Last Documented Arterial Blood Pressure 115/51 - Exam GENERAL EXAM: sedated, intubated, 69-year-old white female, intubated, mechanically ventilated, sedated. Head: Atraumatic, normocephalic. HEENT: PERRLA, EOMI, nonicteric, no neck masses, no JVD, no stridor. Tubes are intact. CHEST: No chest wall deformity. Symmetrical expansion. LUNGS: Symmetrical chest expansion, crackles at the bases CVS: Regular rate and rhythm, normal S1 and S2, no gallops, no murmurs, no rubs ABDOMEN: Soft, nontender. No hepatosplenomegaly, normal bowel sounds, no guarding or rigidity. EXTREMITIES: No clubbing, no edema, no cyanosis, 2+ pulses and upper and lower extremities. MUSCULOSKELETAL: Could not assess, patient is sedated. Patient could not tolerate yesterday weaning from sedation, as he became extremely agitated and restless, and did not follow any instructions. SPINE: No scoliosis or deformity SKIN: No rashes CENTRAL NERVOUS SYSTEM: Sedated, intubated , could not assess - Labs CBC & Chem 7: 06/25/20 05:15 06/25/20 05:15 Labs: Abnormal Lab Results - Last 24 Hours (Table) 06/24/20 06/24/20 06/25/20 Range/Units 17:04 20:02 00:23 WBC (3.8-10.6) k/uL RBC (3.80-5.40) m/uL Hgb (11.4-16.0) gm/dL Hct (34.0-46.0) % Neutrophils # (1.3-7.7) k/uL Lymphocytes # (1.0-4.8) k/uL ABG pCO2 (35-45) mmHg ABG pO2 (83-108) mmHg ABG HCO3 (21-25) mmol/L ABG Total CO2 (19-24) mmol/L ABG O2 Saturation (94-97) % Carbon Dioxide (22-30) mmol/L BUN (7-17) mg/dL Glucose (74-99) mg/dL POC Glucose (mg/dL) 290 H 252 H 132 H (75-99) mg/dL AST (14-36) U/L ALT (4-34) U/L Lactate Dehydrogenase (313-618) U/L C-Reactive Protein (<1.0) mg/dL Total Protein (6.3-8.2) g/dL Albumin (3.5-5.0) g/dL 06/25/20 06/25/20 06/25/20 Range/Units 04:04 05:15 05:15 WBC 11.9 H (3.8-10.6) k/uL RBC 3.38 L (3.80-5.40) m/uL Hgb 10.6 L (11.4-16.0) gm/dL Hct 32.3 L (34.0-46.0) % Neutrophils # 10.6 H (1.3-7.7) k/uL Lymphocytes # 0.9 L (1.0-4.8) k/uL ABG pCO2 (35-45) mmHg ABG pO2 (83-108) mmHg ABG HCO3 (21-25) mmol/L ABG Total CO2 (19-24) mmol/L ABG O2 Saturation (94-97) % Carbon Dioxide 34 H (22-30) mmol/L BUN 41 H (7-17) mg/dL Glucose 133 H (74-99) mg/dL POC Glucose (mg/dL) 128 H (75-99) mg/dL AST 44 H (14-36) U/L ALT 47 H (4-34) U/L Lactate Dehydrogenase 1510 H (313-618) U/L C-Reactive Protein 7.5 H (<1.0) mg/dL Total Protein 5.5 L (6.3-8.2) g/dL Albumin 2.8 L (3.5-5.0) g/dL 06/25/20 06/25/20 06/25/20 Range/Units 05:15 08:50 12:11 WBC (3.8-10.6) k/uL RBC (3.80-5.40) m/uL Hgb (11.4-16.0) gm/dL Hct (34.0-46.0) % Neutrophils # (1.3-7.7) k/uL Lymphocytes # (1.0-4.8) k/uL ABG pCO2 53 H (35-45) mmHg ABG pO2 61 L (83-108) mmHg ABG HCO3 33 H (21-25) mmol/L ABG Total CO2 34 H (19-24) mmol/L ABG O2 Saturation 88.4 L (94-97) % Carbon Dioxide (22-30) mmol/L BUN (7-17) mg/dL Glucose (74-99) mg/dL POC Glucose (mg/dL) 219 H 121 H (75-99) mg/dL AST (14-36) U/L ALT (4-34) U/L Lactate Dehydrogenase (313-618) U/L C-Reactive Protein (<1.0) mg/dL Total Protein (6.3-8.2) g/dL Albumin (3.5-5.0) g/dL Assessment and Plan Assessment: Impression: Acute hypoxic respiratory failure secondary to COVID-19 pneumonia. Patient was outside the window for BAM, patient received toci and Decadron. cocktail as well as COVID-19 cocktail. Patient was intubated on 06/18, not requiring any paralytics. New onset atrial fibrillation with RVR now on Xarelto. She was treated with amiodarone, heparin, and transition to Xarelto. Elevated inflammatory markers secondary to above. History of CVA and aphasia. Hypertension. 2 diabetes. Dyslipidemia. History of right-sided mastectomy for breast cancer. Former smoker. Dyslipidemia. Recommendation: Proceed with tracheostomy and PEG tube placement today. Continue ventilatory support. No changes made, may consider cutting down the PEEP to 12 Continue the COVID-19 cocktail. Patient did receive toci. Continue Xarelto. Continue enteral feeding. Continue Versed/sedation. Continue fentanyl. Daily assessment of sedation after tracheostomy today. Continue to monitor inflammatory markers. Continue to titrate FiO2 and PEEP down accordingly. Continue Decadron. Continue GI and DVT prophylaxis. Critical care time is over 30 minutes. Patient remains critically ill. Time with Patient: Greater than 30
[2020-06-25] MEDS: INSULIN DETEMIR (LEVEMIR) 100 UNIT/ML SYR SQ SCH (15:00)
[2020-06-25 16:38] LABS: Glucose,Whole Blood 110 mg/dL (75-99)
[2020-06-25] MEDS: SODIUM CHLORIDE 0.9% IV SCH ×2 (16:46→19:36)
[2020-06-25] MEDS: MIDAZOLAM HCL IV SCH ×2 (16:46→19:36)
[2020-06-25] MEDS ORDERED: fentaNYL (PF) 50 MCG/ML 2 ML AMP ONE ×2 (17:10)
[2020-06-25] MEDS ORDERED: ROCURONIUM 10 MG/ML (5 ML VIAL) IV ONE ×2 (17:10)
[2020-06-25] MEDS ORDERED: LACTATED RINGERS 1,000 ML IV ONE (17:16)
--- NOTE | 2020-06-25 18:09 | P.OP ---
Date of Procedure: 06/25/20 Preoperative Diagnosis: Respiratory failure Malnutrition Postoperative Diagnosis: Same Procedure(s) Performed: Tracheostomy PEG tube placement Anesthesia: SERAFIN Surgeon: Tobin Leavitt Estimated Blood Loss (ml): 10 Pathology: none sent Condition: stable Disposition: ICU Description of Procedure: The patient's placed on the operative table in the supine position. He received general anesthesia. His neck was prepped and draped in sterile fashion. A standard Olla incision was made. And then using ultrasound and subcu tissues were divided. The strap muscles were divided in the midline. The Matson traction placed a wound. The thyroid gland was visualized. The trachea was then visualized. The TIRE MANAGER placed the endotracheal tube into the right mainstem bronchus. The tracheotomy performed and second tracheal rings. The endotracheal tube was brought back under direct vision the #7 Prolene adjustable cough tracheotomy tube was placed into the trachea. The balloon was inflated. End tidal CO2 was confirmed. The patient developed. The retraction withdrawn. The skin was closed interrupted 3-0 nylon suture. Next the gastroscope oropharynx is esophagus and stomach. The stomach was insufflated air. Suitable light reflux was seen. The stay sutures were then placed under direct visualization into the stomach. 4 stay sutures were placed. Next a skin incision was made 11 blade. The needles placed and stomach under direct visualization. And then the wire was placed into the stomach. The dilator sheath placed over top the wire. And then the ASHISH tube was placed through the dilator sheath into the stomach. The dilator sheath was removed. And then the wound was inspected for the ASHISH tube with 5 mL of saline. The bolster was positioned appropriately position. Patient top she will was sent to ICU in stable condition.
[2020-06-25] MEDS: ATORVASTATIN 10 MG TAB PO SCH (19:35)
[2020-06-25 20:08] LABS: Glucose,Whole Blood 107 mg/dL (75-99)
[2020-06-25 23:15] LABS: Glucose,Whole Blood 124 mg/dL (75-99)
[2020-06-26 05:15] LABS: Glucose,Whole Blood 118 mg/dL (75-99)
[2020-06-26 05:20] LABS: ABG Base Excess 8.1 mmol/L; ABG HCO3 32 mmol/L (21-25); ABG Oxygen Saturation 89.7 % (94-97); ABG PCO2 44 mmHg (35-45); ABG PH 7.47 (7.35-7.45); ABG PO2 60 mmHg (83-108); ABG TCO2 33 mmol/L (19-24); Allen Test Performed? Yes
[2020-06-26] MEDS: INSULIN ASPART (NovoLOG) 100 UNIT/ML VIAL SQ SCH ×10 (05:38→21:09)
[2020-06-26 05:41] LABS: Basophils % (A) 0 %; Eosinophils % (A) 0 %; HCT 30.1 % (34.0-46.0); HGB 9.9 gm/dL (11.4-16.0); Hypochromasia Slight; Lymphocytes # (A) 0.7 k/uL (1.0-4.8); Lymphocytes % (A) 8 %; MCH 31.3 pg (25.0-35.0); MCHC 32.9 g/dL (31.0-37.0); MCV 95.3 fL (80.0-100.0); Mean Platelet Volume 9.7; Monocytes # (A) 0.3 k/uL (0-1.0); Monocytes % (A) 3 %; Neutrophils # (A) 7.8 k/uL (1.3-7.7); Neutrophils % (A) 88 %; Platelet Count 221 k/uL (150-450); RBC 3.16 m/uL (3.80-5.40); RDW 15.6 % (11.5-15.5); WBC 8.8 k/uL (3.8-10.6)
[2020-06-26 05:58] LABS: ALT 49 U/L (4-34); AST 45 U/L (14-36); African American GFR (CKD) >90 (>60 ml/min/1.73 sqM); Albumin 2.7 g/dL (3.5-5.0); Alkaline Phosphatase 70 U/L (38-126); Anion Gap 3 mmol/L; Blood Urea Nitrogen 38 mg/dL (7-17); C Reactive Protein 7.7 mg/dL (<1.0); Calcium 8.8 mg/dL (8.4-10.2); Carbon Dioxide 32 mmol/L (22-30); Chloride 104 mmol/L (98-107); Glucose 124 mg/dL (74-99); LDH 1368 U/L (313-618); Non-African American GFR(CKD) >90 (>60 ml/min/1.73 sqM); Potassium 4.3 mmol/L (3.5-5.1); Sodium 139 mmol/L (137-145); Total Bilirubin 0.6 mg/dL (0.2-1.3); Total Protein 5.4 g/dL (6.3-8.2)
[2020-06-26] MEDS: fentaNYL (PF). 1,000 MCG in SODIUM CHLORIDE 0.9% 80 ML IV SCH ×3 (06:40→22:42)
--- NOTE | 2020-06-26 07:09 | XR ---
EXAMINATION TYPE: XR chest 1V portable DATE OF EXAM: 06/26/2020 COMPARISON: Chest x-ray 06/25/2020 HISTORY: Tracheostomy tube placement TECHNIQUE: Single frontal view of the chest is obtained. FINDINGS: There is been interval removal of endotracheal tube, placement of a tracheostomy tube whic h is overlying appropriate position. Cardiac mediastinal silhouette is stable. Bilateral airspace dis ease, prominence of interstitium again noted. There is no evident pneumothorax or sizable effusion. C ardiac mediastinal silhouette is stable. Patient is rotated. There is a left-sided PICC line, distal tip over the superior vena cava. There are overlying leads. Orogastric tube has been removed. IMPRESSION: Interval tracheostomy tube placement. Correlate for pneumonia
[2020-06-26] MEDS: SODIUM CHLORIDE 0.9% IV SCH ×2 (08:30→12:04)
[2020-06-26] MEDS: MIDAZOLAM HCL IV SCH ×2 (08:30→12:04)
[2020-06-26] MEDS: CHOLECALCIFEROL 25 MCG (1000 IU) TABLET PO SCH (08:31)
[2020-06-26] MEDS: SERTRALINE 50 MG TAB PO SCH (08:31)
[2020-06-26] MEDS: ASCORBIC ACID 500 MG TAB PO SCH (08:31)
[2020-06-26] MEDS: FAMOTIDINE 20 MG TAB PO SCH ×2 (08:31→20:38)
[2020-06-26] MEDS: ARTIFICIAL TEARS-HYPROMELLOSE DROPS 15 ML BTL BOTH EYES SCH ×4 (08:49→21:15)
[2020-06-26] MEDS: CHLORHEXIDINE GLUCONATE 15 ML CUP MUCOUS MEM SCH ×2 (08:49→20:38)
[2020-06-26] MEDS: DEXAMETHASONE SOD PHOSPHATE 10 MG/ML 1 ML VIAL IV SCH (08:49)
[2020-06-26] MEDS: ZINC SULFATE 220 MG CAP PO SCH (08:50)
--- NOTE | 2020-06-26 10:25 | P.PN ---
Subjective Progress Note Date: 06/26/20 Principal diagnosis: Acute hypoxic failure secondary to COVID-19 pneumonia. 69-year-old white female patient who presented to the emergency department on 06/12/2020 at 1400 in the afternoon with complaints of shortness of breath, and her first onset of symptoms was approximately 2-3 weeks ago. She tested positive for COVID 19 on 06/07/2020. Patient was seen in the emergency department at that time, and was having symptoms of fatigue, shortness of breath and cough. She does have multiple comorbidities including hypertension, diabetes mellitus, dyslipidemia, history of breast cancer, patient is a former smoker. Was outside the window for monoclonal antibody, she was sent home on Decadron, and vitamins. Chest x-ray at that time showed interstitial infiltrates. Patient returned with worsening symptoms, chest x-ray on the 2020 showed interval bilateral diffuse infiltrates. In addition patient was confused, on arrival of the EMS to the scene patient was severely hypoxemic with a pulse ox of only 46%. She was bagged valve ventilated with improvement in her oxygen, she was placed on BiPAP support. Brain CT showed no acute intracranial abnormality. Angiography CT showed no acute abnormality of the head/neck, and a moderate stenosis of the right proximal ICA. CBC was positive for lymphopenia with lymphocyte count 0.6, d-dimer was 1.36, sodium is 143, potassium is 3.9, chloride is 108, CO2 22, BUN is 50, creatinine is 1, glucose level was 321, plasma lactic acid is 1.3, AST was 84, ALT was 31, alk phos was 50, troponin was 0.104, CRP was 334. Patient was started on IV Decadron in the emergency department, she remains on BiPAP support, currently at pressures of 12 and 6 and FiO2 100%, she appears to have increased work of breathing, she is not able to answer questions related to dyspnea, repeat blood gas was done showing pO2 of 68, pCO2 45, pH of 7.39 and subsequently her BiPAP settings were adjusted to 14/7 and FiO2 100%, patient is awaiting a bed in the intensive care unit, she is awake and alert, she did answer some simple questions yes or no for me while on BiPAP support, we'll start the patient on IL-6 MAB, Tocilizumab. We'll continue to closely follow her clinical course, continues to deteriorate patient required intubation and placement on mechanical ventilatory supp On today's evaluation of 06/14/2020 the patient is being seen for a follow-up regarding acute hypoxic respiratory failure and COVID 19 pneumonia. The patient was status post positive on 06/07/2020 and the patient was symptomatic prior to that. The patient presented with hypoxic respiratory failure and the patient was placed on a BiPAP which is currently at the pressure of 14/7 cm of water and FiO2 of 900%. Chest x-ray showing bilateral patchy by troponin infiltrates consistent with pneumonia. The patient was started on steroids and Tocilizumab was ordered. The patient is having increased shortness of breath even while on the BiPAP. The patient is quite dyspneic even while on the BiPAP and is unable to complete full sentences. Blood gases from yesterday was noted. CT angiogram of the head and neck showed moderate stenosis of the right proximal ICA. CAT scan of the brain was negative., CRP of 356, troponin was 0.19 and the patient's d-dimer was 2.13. The patient is currently on Decadron 6 mg IV every 24 hours. The patient is on Lovenox 40 mg subcu every 24 hours. The patient on Levemir insulin 20 units daily at bedtime that was started yesterday the patient will be taken off the insulin drip. Currently the patient is also on various hypertensive medications including Zestoretic and Kl clonidine patch and Norvasc. neurologically, the patient is still quite somnolent. She is moving all 4 extremities. No neck stiffness. This encephalopathy is probably related to Covid 19 infection. Neuro is also on the case. His blood work, the sodium level is at 154 with a BUN of 61 and creatinine of 0.9. The patient on IV fluid and currently receiving 0.9 at the rate of 100 mL an hour. On 06/15/2020, the patient is being seen in follow-up in the intensive care unit. This is a case of 69-year-old female patient with Covid associated pneumonia. The patient remains in the emergency department awaiting her bed in the ICU. Currently she is on a BiPAP at a pressure of 14/7 cm of water with an FiO2 of 100%. The patient is quite synchronous and tolerated the BiPAP treatment. Her current tidal volume generated is around 840 mL with a respiratory rate of 29 and a minute ventilation of 23. Chest x-ray from today has not been done and this is supposed to be repeated. The chest x-ray from yesterday was showing diffuse bilaterally pulmonary infiltrates more so in the left perihilar area. No new blood gases. D-dimer is today at 34 and the CRP level is at 67. LDH is still pending for now. Neurologically, the patient is still lethargic and somnolent and encephalopathic. She is on Precedex running at 0.5 mcg/kg per minute. Lumbar puncture was done yesterday and the patient was found to have a CSF RBC of 7, nucleated cells were only a 2, glucose was 79 and the protein was slightly elevated at 66. This is not consistent with bacterial meningitis. It may be consistent with viral encephalopathy. Gram st ain of the CSF was negative. Cultures are also negative. I would say clinically she is essentially unchanged. She is more comfortable while being on Precedex. She is hemodynamically stable and she is afebrile. She is still receiving IV fluids in the form of D5 half-normal saline at the rate of 1 25 mL an hour. She is currently off the insulin drip. Her blood sugar is at 128 and the patient is on Levemir insulin 20 units daily at bedtime along with a sliding scale coverage. The patient's renal function currently is stable with a BUN of 63 and a creatinine of 0.8. Sodium level was improving and his sodium level was on the decline it was already down to 151. 06/16/2020, the patient remains on a BiPAP in the emergency department a pressure of 14/7 and FiO2 is currently at 80% and her current pulse ox is around 96%. Her generated tidal volume is around 816 with a respiratory rate of 30 and a minute volume of 25 L per minute. I took her off the Precedex yesterday the patient was quite lethargic. This morning, she is more arousable. She is extremely weak. She is following some simple commands. She is wiggling her toes and moving her arms upon demand. She cannot hold a conversation as the patient is very much BiPAP dependent at this point in time. She easily desaturates once she is off the BiPAP. She is hemodynamically stable for now. The chest x-ray showing bilateral pulmonary infiltrates, slightly improved compared to yesterday. In terms of her blood work, the patient's blood sugars at 250. She is currently on D5 half-normal saline at the rate of 150 mL an hour. Her sodium level is improved and is down to 145 and a BUN is 36 with a creatinine of 0.7. Her CRP is down to 41. Her LDH level is up to 3339. Rest of the blood work and electrodes are all within normal limits and as mentioned the sodium level is improved and is down to 145. Her lumbar puncture was done and the findings are essentially related to Covid 19 encephalopathy. Case was discussed with neurology. As for the blood sugars, the patient's blood sugars are running in the mid 200s and the patient is on a sliding scale coverage. No major edema in lower extremities. Cardiac rhythm is sinus for now. 06/17/2020, the patient is being seen in follow-up. Unfortunately, she has remained in the emergency and she hasn't been able to find her way up to the ICU. I have her today on a BiPAP at a pressure of 16/8 cm of water with an FiO2 of 100%. The patient was doing well throughout the night and earlier this morning she became significantly more short of breath, hypoxic and tachycardic. Currently she is struggling with her breathing. She is using excessive muscle breathing even while being on a BiPAP. She is able to generate adequate tidal volumes of around 800 mL and her respiratory rate is in the mid 40s. She is tachycardic with a heart rate of 150, sinus. She is unable to speak. She is anxious. She was given a total of 4 mg of morphine which helped her with the breathlessness and shortness of breath. She is awake and arousable and she is moving all 4 extremities. As mentioned earlier, she is a case of COVID-19 related pneumonia. The patient was treated with a combination of treatment and the patient was given Decadron 6 mg IV every 24 hours. The patient also received Tocilizumab 50 mg IV on 06/13/2020. She was having some degree of encephalopathy that was thought to be a viral encephalopathy in the lumbar puncture was done and it showed some mild elevation of the protein. Otherwise negative. Repeat chest x-ray from today has not been completed. This is in progress. Cardiac rhythm is sinus. The patient is likely headed to intubation/ mechanical ventilation. 06/18/2020, the patient is currently in the intensive care unit. She seems much more comfortable while being on Precedex is running at 0.7 mcg/kg per minute. She is very evasive ventilator and the patient is currently on a pressure of 16/8 with an FiO2 of 100%. She was struggling with her breathing yesterday and she seems to be essentially the same as yesterday without any interval improvement.. Her current respiratory rate is in the order of mid 30s and she is able to generate adequate amount of tidal volume. She is unresponsive. She is on Precedex. Her breathing is unlabored. She is using accessory muscles of breathing. She has less tachycardic to yesterday. She seems to be also less anxious. She is taking morphine on an as-needed basis for shortness of breath and anxiety. On today's blood gas, pH is 7.48 with a pCO2 of 36 and pO2 of 51. Her current pulse ox is 91%. She remains on Decadron 6 mg IV every 24 hours. The patient also received Tocilizumab 720 mg iv. The patient remains also on anticoagulation on Lovenox 45 mg subcu she will 12 hours. In terms of the inflammatory markers, the patient has a d-dimer of above 34, and the patient has a LDH level of 3728 and the patient is a CRP of 29. The inflammatory markers continued to be quite elevated and essentially unchanged compared to yesterday. She is afebrile for now and she is hemodynamically stable on no pressors. She is receiving nutrition via TPN and the patient is decline in her left upper extremity. CSF cultures have been negative. No neck stiffness. Neurology is also on the case and the working diagnosis is COVID-19 related encephalopathy. 06/19/2020 on seeing the patient in the intensive care unit. Noted the patient was brought in to the ICU yesterday and she became progressively more confused, tachypneic, tachycardic and hypoxic and she was failing also BiPAP which she was able to tolerate for a few days. At that point, the decision was to intubate the patient placed on mechanical ventilator. Following intubation, the patient was placed on sedation with propofol and currently propofol is running at 40 mg/kg/m. She also had to be paralyzed and the patient is currently on Nimbex running at 2 mcg/kg per minute. She was taken off the Precedex. For now, she is well sedated and paralyzed on a mechanical ventilator and she is currently on assist control mode rate of 28 with a tidal volume of 400 and FiO2 of 70% with a PEEP of 15. At peak airway pressure on the mechanical ventilator is 33. Static pressure is 31. No orotracheal secretions. The chest x-ray from today showing adequate positioning of the orotracheal tube. The patient also has a orogastric tube in place. The patient had diffuse breath and pulmonary infiltrates consistent with COVID-19 related pneumonia/ARDS. Her d-dimer was elevated at 35 and the patient was receiving 45 mg of subcu Lovenox every 12 hours. LDH from today is 2544 and a CRP level is at 3.4 and both are elevated. Most recent blood gases from this morning shows a pH of 7.39 with a pCO2 of 47 and pO2 of 79. The patient remains on steroids and she is receiving Decadron 6 g IV every 24 hours. Earlier during the shift, the patient became hypotensive and she had to be placed on pressors and the patient is currently on norepinephrine infusion running at 0.06 mcg/kg per minute. Earlier this morning at around 3:15 AM, the patient also went into new onset atrial fibrillation with rapid ventricular response. She was given amiodarone bolus 150 mg IV and following that she was given a amiodarone at 1 mg per minute for loading protocol. There was no impact on her heart rate. The patient was also given Cardizem, bolus initially at a dose of 5 mg IV and following that started on a maintenance of 10 mg an hour. She is currently still having atrial fibrillation and her heart rate is in the 130 to 140 range. Blood pressure is soft and the patient is stranding thousand becoming hypotensive. Urine output is order of early cc an hour. IV fluids are running at 20 mL an hour and the patient is on enteral feeding for nutritional support in the form of vital high protein at the rate of 20 mL an hour and the goal is at 38. In terms of her CSF cultures, if very much came back negative. The patient had over the encephalopathy prior to her getting intubated. The triglyceride at baseline prior to her initiation of propofol infusion was 594. I am inclined to switching this patient alternatives sedation. She was on Precedex however this was not effective in combination with fentanyl. I will consider adding Versed infusion. 06/20/2020, the patient is intubated on a mechanical ventilator and she is currently in the intensive care unit. After being on a BiPAP for several days, the patient decompensated. She presented to us with COVID-19 related pneumonia and encephalopathy. She was on Precedex and BiPAP for extended period of time and ultimately she failed and she was intubated and placed on a mechanical ventilator. Propofol was discontinued as the patient was having an elevated triglyceride level and the patient is currently on Versed running at 5 mg an hour and fentanyl running at 1 mcg/kg per minute. The patient is currently off paralytics. He was discontinued yesterday. In terms of treatment, the patient remains on assist control mode of mechanical ventilation. She is on a tidal volume of 400 with an FiO2 of 70% and a PEEP is at 15 with a respiratory rate of 28 and this is volume cycle assist-control mode. The blood gas showed a pH of 7.39 with a pCO2 50 and pO2 of 64. The chest x-ray from today is showing diffuse interstitial infiltrates bilaterally. Overall findings are essentially unchanged compared to yesterday. Orotracheal tube remains in a good location. The peak anesthetic pressures are 31 and 30 respectively. The patient's lightheadedness a mechanical ventilator and she is currently off paralytics. Meanwhile, at LDH level is at 2253 which is comparable to yesterday and his CRP level from yesterday was at 3.4. Her d-dimer level is at 10.3. She did have a bout of atrial fibrillation yesterday with rapid ventricular response. She was treated with a combination of amiodarone drip and a Cardizem drip. Cardizem drip has been discontinued. Amiodarone drip is running at 0.5 mg per minute and the patient's cardiac rhythm is back in 2 sinus tachycardia and she converted back to sinus yesterday morning. The patient is also on IV heparin infusion. Recommendations are to discontinue the amiodarone for now and keep the IV hepar in for another 24 hours. In terms of hemodynamics, the patient has been off pressors since yesterday. She was running only a low dose of norepinephrine infusion. Currently is on IV fluids running at the rate of 20 mL an hour and the net fluid balance has been +1.6 L since yesterday. Remains on Decadron 6 mg IV every 24 hours. Remains on IV heparin for now. Levemir insulin 36 units for blood sugar control along with NovoLog Scale coverage. Blood sugars continued to be quite elevated. NovoLog 10 units 4 times a day will be also added in combination with sliding scale coverage. On 06/21/2020 patient seen in intensive care unit, patient remains intubated, sedated on assist control mode of ventilation with a rate of 28, tidal vitamins 400, FiO2 of 70%, and PEEP of 15, this morning's blood gas shows a pO2 of 77, pCO2 48, and pH of 7.42, patient's chest x-ray today shows ET tube, NG tube, right-sided PICC line in appropriate positions, bilateral airspace disease similar to the prior exam, no evident pneumothorax or sizable pleural effusion. In terms of drips, patient is on 0.9 normal saline at a rate of 20 ML per hour, she is on Versed at 11 mg per hour, and fentanyl drip is at 1.5 mics per kilo per minute, to prevent has been off in view of elevated triglyceride levels, she is receiving nutritional support in the form of vital high protein at a rate of 38 which is goal with standard water flushes. The rest of the blood work has been reviewed today showing white blood cell, 9.5, hemoglobin of 9.9, platelet count is 214, d-dimer is 5.35 which is improved from 10.39 on yesterday's labs, sodium is 142, potassium is 4.3, chloride is 110, CO2 30, BUN of 48, creatinine 0.74, LFTs are improving, AST and ALT are 45 and 42 respectively, alkaline phosphatase is within normal range at 86 today which is also improved, LDH is trending down, at 1816 on today's labs, CRP is 1.8. In terms of therapy patient is currently on Decadron at 6 mg daily IV, she remains off paralytics, she did have a run of A. fib with RVR for which she had Cardizem drip started, she has not had recurrence of A. fib RVR, she was on heparin infusion which we can switch back over to Lovenox at intermediate doses in view of improving d-dimer and no recurrence of arrhythmias. Echocardiogram showed preserved LV function of 55%, mild MR, and mild TR, no evidence of pulmonary hypertension moderate en largement of the right ventricle. Her blood sugar control has improved, and patient is calm combination of Levemir 46 units daily in addition to NovoLog sliding scale and 10 units of additional NovoLog in addition to sliding scale 4 times daily. Her CSF cultures have shown no growth thus far, cats, mild elevation of temperature, but low-grade fever, with a T-max of 99.8 Patient was reevaluated today on 06/22/2020, remains intubated and mechanically ventilated. Her assist-control rate is 28, tidal volume is 400, FiO2 is 55%, PEEP is 15. Peak airway pressure is 29 static pressures 27. ABG this morning showed a pO2 of 66 pCO2 of 50 pH of 7.42. Remains on Versed at 9 mg per hour, and fentanyl at 1.5 mcg/kg/h. Patient is also on IV fluid at 0.9 normal saline, receiving tube feeding at 58 ML per hour. Patient was switched to Xarelto. From Lovenox. CBC is relatively normal. Her d-dimer is 10.74. Electrolytes are normal. Renal profile is normal. LDH is 1546., Steadily improving, it was as high as 3700 Patient was reevaluated today on 06/23/2020, remains in the ICU, intubated and mechanically ventilated. She is on assist control rate of 28 tidal volume is 400 FiO2 50% PEEP remains 15. I did cut down the PEEP to 12. ABG showed a pO2 of 61 pCO2 of 46 pH of 7.44. Patient remains on Versed and fentanyl, not requiring any Nimbex, Versed is 10 mg per hour, and fentanyl at 1.5 mcg/kg/h. She is on enteral feeding using vital hP and 59/59. Patient is hemodynamically stable, she is in sinus rhythm, peak airway pressure is 28, and static pressure is 17. Chest x-ray continues to show bilateral of disease consistent with COVID-19 pneumonia. Basic metabolic profile is normal renal profile is normal LDH is 1628. C-reactive protein is 2.7 BC is relatively normal. Spinal fluid cultures have been negative from a week ago Patient was reevaluated today on 06/24/2020, remains in the ICU, intubated and mechanically ventilated. He is on assist control rate of 28 tidal volumes 400 FiO2 50% PEEP of 14. ABG showed a pO2 of 58 pCO2 of 52 pH of 7.40. Patient is on fentanyl at 1.5 and Versed at 11 mg per hour. My plan is to give the patient a sedation holiday. And assess mental status. Although the patient remains on relatively high PEEP, she is not ready to wean, and I would recommend tracheostomy and PEG tube placement on this patient. Remains on vital Hp at 59 mL per hour. Surgical consultation for tracheostomy and PEG tube was initiated. WBC count is 9.9 hemoglobin is 10.4. Electrolytes are normal. Renal profile is normal. LDH remains high at 1572. C-reactive protein is 4.0. Both seem to be trending down. And showing improvement. Chest x-ray continues to show bilateral pneumonia. Not much of a interchange agent the last few days. Patient was reevaluated today on 06/25/2020, remains in the ICU, intubated and mechanically ventilated. She is now on assist control rate of 28 tidal volume 400 FiO2 50% and PEEP at 14. Her ABG showed a pO2 of 61 pCO2 of 53 pH of 7.40. Hence no changes were made in the ventilator settings. The patient remains on Versed at 11 mg per hour, fentanyl at 1.5 mcg/kg/h, and IV fluid at KVO. Chest x-ray continues to show basically bibasilar infiltrates. Patient is scheduled to have PEG and tracheostomy tube placement today. Her enteral feeding is presently on hold. CBC is relatively normal. Electrolytes and renal profile are relatively normal. LDH is 1510, C-reactive protein is 7.5. Reevaluated today on 06/22/2020, patient remains in the ICU, intubated and mechanically ventilated. She is status post tracheostomy and PEG tube placement done yesterday on 06/25. Vent settings are assist control rate 28 tidal volume is 400 FiO2 50% PEEP of 14 ABG showed a pO2 of 60 pCO2 of 44 pH of 7.47. Patient remains on Versed and on fentanyl. My plan is to discontinue both today, assess the patient's mental status off sedation, and decide whether she needs to be on that much sedation or not after waking up with the patient and assessing mental status. Tube feeds remain on hold at present because the patient had a PEG tube placed yesterday. She will be restarted back on vital hp at 59 mL per hour. Again the patient will receive today at least a brief sedation holiday. Patient is hemodynamically stable, chest x-ray continues to show minimal bibasilar infiltrates, consistent with COVID-19 pneumonia. I mproved compared to her baseline. CBC is normal. Basic metabolic profile is normal. D-dimer is 29.03 LDH is 1368 C-reactive protein is 7.7. Patient was on Lovenox at 40 mg subcu twice a day, and I will go ahead and place her back on Lovenox, may eventually restart her back on Xarelto and discontinue Lovenox. Objective - Vital Signs Vital signs: Vital Signs Temp 97.0 F L 06/26/20 05:00 Pulse 90 06/26/20 07:00 Resp 29 H 06/26/20 07:00 BP 133/80 06/25/20 19:00 Pulse Ox 89 L 06/26/20 07:00 Intake & Output 06/25/20 06/26/20 06/26/20 18:59 06:59 18:59 Intake Total 617.723 434.280 20 Output Total 795 570 35 Balance -177.277 -135.720 -15 Weight 89.5 kg 90.4 kg Intake: IV 320 240 20 0.9 220 240 20 Intake, IV Titration 297.723 194.280 Amount Midazolam HCl 200 mg In 200 Sodium Chloride 0.9% 160 ml @ 10 MG/HR 10 mls/hr IV .Q10H [facility] Rx#: [id number] fentaNYL (PF). 1,000 mcg 97.723 194.280 In Sodium Chloride 0.9% 80 ml @ Per Protocol IV . Q0M [facility]ANITA Rx#:[id number] Tube Feeding 0 Other 0 Output: Urine 785 570 35 Estimated Blood Loss 10 Other: Voiding Method Indwelling Catheter Indwelling Catheter ABP, PAP, CO, CI - Last Documented Arterial Blood Pressure 104/47 - Exam GENERAL EXAM: sedated, intubated, 69-year-old white female, intubated, mechanically ventilated, sedated. Status post tracheostomy and PEG tube placement on 06/25 Head: Atraumatic, normocephalic. A colostomy is intact. HEENT: PERRLA, EOMI, nonicteric, no neck masses, no JVD, no stridor. CHEST: No chest wall deformity. Symmetrical expansion. LUNGS: Symmetrical chest expansion, crackles at the bases CVS: Regular rate and rhythm, normal S1 and S2, no gallops, no murmurs, no rubs ABDOMEN: Soft, nontender. No hepatosplenomegaly, normal bowel sounds, no guarding or rigidity. PEG tube is intact. EXTREMITIES: No clubbing, no edema, no cyanosis, 2+ pulses and upper and lower extremities. MUSCULOSKELETAL: Could not assess, patient is sedated. Plan to hold sedation and assessment of status, she would have a sedation holiday today. SKIN: No rashes CENTRAL NERVOUS SYSTEM: Sedated, intubated , could not assess - Labs CBC & Chem 7: 06/26/20 05:20 06/26/20 05:20 Labs: Abnormal Lab Results - Last 24 Hours (Table) 06/25/20 06/25/20 06/25/20 Range/Units 12:11 16:36 20:07 RBC (3.80-5.40) m/uL Hgb (11.4-16.0) gm/dL Hct (34.0-46.0) % RDW (11.5-15.5) % Neutrophils # (1.3-7.7) k/uL Lymphocytes # (1.0-4.8) k/uL D-Dimer (<0.60) mg/L FEU ABG pH (7.35-7.45) ABG pO2 (83-108) mmHg ABG HCO3 (21-25) mmol/L ABG Total CO2 (19-24) mmol/L ABG O2 Saturation (94-97) % Carbon Dioxide (22-30) mmol/L BUN (7-17) mg/dL Glucose (74-99) mg/dL POC Glucose (mg/dL) 121 H 110 H 107 H (75-99) mg/dL AST (14-36) U/L ALT (4-34) U/L Lactate Dehydrogenase (313-618) U/L C-Reactive Protein (<1.0) mg/dL Total Protein (6.3-8.2) g/dL Albumin (3.5-5.0) g/dL 06/25/20 06/26/20 06/26/20 Range/Units 23:14 05:13 05:13 RBC (3.80-5.40) m/uL Hgb (11.4-16.0) gm/dL Hct (34.0-46.0) % RDW (11.5-15.5) % Neutrophils # (1.3-7.7) k/uL Lymphocytes # (1.0-4.8) k/uL D-Dimer (<0.60) mg/L FEU ABG pH 7.47 H (7.35-7.45) ABG pO2 60 L (83-108) mmHg ABG HCO3 32 H (21-25) mmol/L ABG Total CO2 33 H (19-24) mmol/L ABG O2 Saturation 89.7 L (94-97) % Carbon Dioxide (22-30) mmol/L BUN (7-17) mg/dL Glucose (74-99) mg/dL POC Glucose (mg/dL) 124 H 118 H (75-99) mg/dL AST (14-36) U/L ALT (4-34) U/L Lactate Dehydrogenase (313-618) U/L C-Reactive Protein (<1.0) mg/dL Total Protein (6.3-8.2) g/dL Albumin (3.5-5.0) g/dL 06/26/20 06/26/20 06/26/20 Range/Units 05:20 05:20 05:20 RBC 3.16 L (3.80-5.40) m/uL Hgb 9.9 L (11.4-16.0) gm/dL Hct 30.1 L (34.0-46.0) % RDW 15.6 H (11.5-15.5) % Neutrophils # 7.8 H (1.3-7.7) k/uL Lymphocytes # 0.7 L (1.0-4.8) k/uL D-Dimer 29.03 H (<0.60) mg/L FEU ABG pH (7.35-7.45) ABG pO2 (83-108) mmHg ABG HCO3 (21-25) mmol/L ABG Total CO2 (19-24) mmol/L ABG O2 Saturation (94-97) % Carbon Dioxide 32 H (22-30) mmol/L BUN 38 H (7-17) mg/dL Glucose 124 H (74-99) mg/dL POC Glucose (mg/dL) (75-99) mg/dL AST 45 H (14-36) U/L ALT 49 H (4-34) U/L Lactate Dehydrogenase 1368 H (313-618) U/L C-Reactive Protein 7.7 H (<1.0) mg/dL Total Protein 5.4 L (6.3-8.2) g/dL Albumin 2.7 L (3.5-5.0) g/dL Assessment and Plan Assessment: Impression: Acute hypoxic respiratory failure secondary to COVID-19 pneumonia. Patient was outside the window for BAM, patient received toci and Decadron. cocktail as well as COVID-19 cocktail. Patient was intubated on 06/18, not requiring any paralytics. New onset atrial fibrillation with RVR now on Xarelto. She was treated with amiodarone, heparin Elevated inflammatory markers secondary to above. History of CVA and aphasia. Hypertension. 2 diabetes. Dyslipidemia. History of right-sided mastectomy for breast cancer. Former smoker. Dyslipidemia. Status post tracheostomy and PEG tube placement on 06/25/2020. Recommendation: Continue tracheostomy and PEG tube care. Resume enteral feeding via PEG tube sometime later today. Continue ventilatory support. No changes in the vent settings made today. Continue the COVID-19 cocktail. Patient did receive toci. Back on Lovenox 40 mg subcu twice a day. Patient holiday off Versed and fentanyl and assess mental status today. Continue to monitor inflammatory markers. Continue to titrate FiO2 and PEEP down accordingly. Continue Decadron. Continue GI and DVT prophylaxis. Critical care time is over 30 minutes. Time with Patient: Greater than 30
[2020-06-26] MEDS: ENOXAPARIN 40 MG/0.4 ML SYRINGE SQ SCH ×2 (12:07→20:38)
[2020-06-26 12:16] LABS: Glucose,Whole Blood 195 mg/dL (75-99)
--- NOTE | 2020-06-26 12:38 | P.PN ---
Progress Note - Text Progress Note Date: 06/26/20 Tracheostomy site is clean. PEG tube is in position. Patient will start tube feeds today.
[2020-06-26] MEDS: INSULIN DETEMIR (LEVEMIR) 100 UNIT/ML SYR SQ SCH (17:22)
[2020-06-26 17:33] LABS: Glucose,Whole Blood 213 mg/dL (75-99)
[2020-06-26] MEDS: ATORVASTATIN 10 MG TAB PO SCH (20:38)
[2020-06-26 20:49] LABS: Glucose,Whole Blood 131 mg/dL (75-99)
--- NOTE | 2020-06-26 21:51 | P.PN ---
Subjective Progress Note Date: 06/26/20 Principal diagnosis: Acute Hypoxic Respiratory Failure due to COVID -19 Pneumonia Ms. Killian is a 69-year-old female, who follows with Dr. Eubanks, with a past medical history of diabetes mellitus, hypertension, hyperlipidemia, osteoarthritis, obstructive sleep apnea, history of breast cancer with right mastectomy admitted for acute severe bilateral Covid 19 pneumonia. On 06/26/2020 -patient was seen and examined at bedside. She is currently in the ICU, intubated and mechanically ventilated. She is on assist control 28, FiO2 50%, with PEEP of 14. She continues to be on fentanyl and Versed. She is status post tracheostomy and PEG tube placement done on 06/25. Patient had a chest x-ray done this morning showing bibasilar infiltrates and ABGs done this morning showing pH 7.47, PO2 60, PCO2 44. Reviewing the vitals temperature of 97.8, heart rate 70s to 80s, blood pressure 100-110 by 40s to 50s. Review of systems could not be done as the patient is intubated and sedated. Patient's medication list Tylenol, ascorbic acid, atorvastatin, vitamin D3, Dec adron, Lovenox, Pepcid, fentanyl, NovoLog, Levemir Zoloft, zinc. Objective - Vital Signs Vital signs: Vital Signs Temp 98.7 F 06/26/20 12:00 Pulse 74 06/26/20 15:00 Resp 28 H 06/26/20 15:00 BP 133/80 06/25/20 19:00 Pulse Ox 92 L 06/26/20 15:00 Intake & Output 06/25/20 06/26/20 06/26/20 18:59 06:59 18:59 Intake Total 617.723 434.280 480 Output Total 795 570 510 Balance -177.277 -135.720 -30 Weight 89.5 kg 90.4 kg Intake: IV 320 240 180 0.9 220 240 180 Intake, IV Titration 297.723 194.280 300 Amount Midazolam HCl 200 mg In 200 200 Sodium Chloride 0.9% 160 ml @ 10 MG/HR 10 mls/hr IV .Q10H [facility] Rx#: [id number] fentaNYL (PF). 1,000 mcg 97.723 194.280 100 In Sodium Chloride 0.9% 80 ml @ Per Protocol IV . Q0M [facility]ANITA Rx#:[id number] Tube Feeding 0 Other 0 Output: Urine 785 570 510 Estimated Blood Loss 10 Other: Voiding Method Indwelling Catheter Indwelling Catheter Indwelling Catheter ABP, PAP, CO, CI - Last Documented Arterial Blood Pressure 100/48 - Exam GENERAL EXAM: sedated, intubated, 69-year-old white female, intubated, mechani enzo ventilated, sedated. Status post tracheostomy and PEG tube placement on 06/25 Head: Atraumatic, normocephalic. Tracheostomy in place. HEENT: PERRLA, EOMI, nonicteric, no neck masses, no JVD, no stridor. CHEST: No chest wall deformity. Symmetrical expansion. LUNGS: Symmetrical chest expansion, crackles at the bases CVS: Regular rate and rhythm, normal S1 and S2, ABDOMEN: Soft, nontender. PEG tube is intact. EXTREMITIES: No clubbing, no edema, no cyanosis, 2+ pulses and upper and lower extremities. CENTRAL NERVOUS SYSTEM: Sedated, intubated so could not assess - Labs CBC & Chem 7: 06/26/20 05:20 06/26/20 05:20 Labs: Abnormal Lab Results - Last 24 Hours (Table) 06/25/20 06/25/20 06/25/20 Range/Units 16:36 20:07 23:14 RBC (3.80-5.40) m/uL Hgb (11.4-16.0) gm/dL Hct (34.0-46.0) % RDW (11.5-15.5) % Neutrophils # (1.3-7.7) k/uL Lymphocytes # (1.0-4.8) k/uL D-Dimer (<0.60) mg/L FEU ABG pH (7.35-7.45) ABG pO2 (83-108) mmHg ABG HCO3 (21-25) mmol/L ABG Total CO2 (19-24) mmol/L ABG O2 Saturation (94-97) % Carbon Dioxide (22-30) mmol/L BUN (7-17) mg/dL Glucose (74-99) mg/dL POC Glucose (mg/dL) 110 H 107 H 124 H (75-99) mg/dL AST (14-36) U/L ALT (4-34) U/L Lactate Dehydrogenase (313-618) U/L C-Reactive Protein (<1.0) mg/dL Total Protein (6.3-8.2) g/dL Albumin (3.5-5.0) g/dL 06/26/20 06/26/20 06/26/20 Range/Units 05:13 05:13 05:20 RBC (3.80-5.40) m/uL Hgb (11.4-16.0) gm/dL Hct (34.0-46.0) % RDW (11.5-15.5) % Neutrophils # (1.3-7.7) k/uL Lymphocytes # (1.0-4.8) k/uL D-Dimer 29.03 H (<0.60) mg/L FEU ABG pH 7.47 H (7.35-7.45) ABG pO2 60 L (83-108) mmHg ABG HCO3 32 H (21-25) mmol/L ABG Total CO2 33 H (19-24) mmol/L ABG O2 Saturation 89.7 L (94-97) % Carbon Dioxide (22-30) mmol/L BUN (7-17) mg/dL Glucose (74-99) mg/dL POC Glucose (mg/dL) 118 H (75-99) mg/dL AST (14-36) U/L ALT (4-34) U/L Lactate Dehydrogenase (313-618) U/L C-Reactive Protein (<1.0) mg/dL Total Protein (6.3-8.2) g/dL Albumin (3.5-5.0) g/dL 06/26/20 06/26/20 06/26/20 Range/Units 05:20 05:20 12:14 RBC 3.16 L (3.80-5.40) m/uL Hgb 9.9 L (11.4-16.0) gm/dL Hct 30.1 L (34.0-46.0) % RDW 15.6 H (11.5-15.5) % Neutrophils # 7.8 H (1.3-7.7) k/uL Lymphocytes # 0.7 L (1.0-4.8) k/uL D-Dimer (<0.60) mg/L FEU ABG pH (7.35-7.45) ABG pO2 (83-108) mmHg ABG HCO3 (21-25) mmol/L ABG Total CO2 (19-24) mmol/L ABG O2 Saturation (94-97) % Carbon Dioxide 32 H (22-30) mmol/L BUN 38 H (7-17) mg/dL Glucose 124 H (74-99) mg/dL POC Glucose (mg/dL) 195 H (75-99) mg/dL AST 45 H (14-36) U/L ALT 49 H (4-34) U/L Lactate Dehydrogenase 1368 H (313-618) U/L C-Reactive Protein 7.7 H (<1.0) mg/dL Total Protein 5.4 L (6.3-8.2) g/dL Albumin 2.7 L (3.5-5.0) g/dL Assessment and Plan Assessment: ASSESSMENT Acute hypoxic respiratory failure secondary to COVID-19 pneumonia. New onset atrial fibrillation with RVR S?P Tracheostomy and PEG tube placement on 06/25/2020 Elevated inflammatory markers History of CVA and aphasia. Hypertension. Type 2 diabetes. Dyslipidemia. History of right-sided mastectomy for breast cancer. Former smoker. Dyslipidemia. PLAN: Patient was outside the window for BAM, patient received tociluzumab . Patient was intubated on 06/18. She was treated with amiodarone, heparin for A. fib and now on Lovenox .Continue with steroids, IV fluids, continue with vitamin C, vitamin D and zinc. Ventilator , weaning trail and sedation holiday as per ICU management. Over all prognosis is poor.
[2020-06-27 00:16] LABS: Glucose,Whole Blood 84 mg/dL (75-99)
[2020-06-27] MEDS: SODIUM CHLORIDE 0.9% IV SCH ×3 (03:47→21:10)
[2020-06-27] MEDS: MIDAZOLAM HCL IV SCH ×3 (03:47→21:10)
[2020-06-27 04:10] LABS: Glucose,Whole Blood 95 mg/dL (75-99)
[2020-06-27] MEDS: INSULIN ASPART (NovoLOG) 100 UNIT/ML VIAL SQ SCH ×12 (04:21→20:32)
[2020-06-27 04:50] LABS: Basophils % (A) 0 %; Eosinophils # (A) 0.1 k/uL (0-0.7); Eosinophils % (A) 1 %; HCT 28.8 % (34.0-46.0); HGB 9.7 gm/dL (11.4-16.0); Hypochromasia Slight; Lymphocytes # (A) 0.4 k/uL (1.0-4.8); Lymphocytes % (A) 6 %; MCHC 33.7 g/dL (31.0-37.0); Mean Platelet Volume 8.7; Monocytes # (A) 0.3 k/uL (0-1.0); Monocytes % (A) 4 %; Neutrophils % (A) 90 %; Platelet Count 238 k/uL (150-450); RBC 3.04 m/uL (3.80-5.40); RDW 15.8 % (11.5-15.5); WBC 7.8 k/uL (3.8-10.6)
[2020-06-27 05:03] LABS: ALT 33 U/L (4-34); AST 30 U/L (14-36); African American GFR (CKD) >90 (>60 ml/min/1.73 sqM); Albumin 2.2 g/dL (3.5-5.0); Alkaline Phosphatase 61 U/L (38-126); Anion Gap 4 mmol/L; Blood Urea Nitrogen 30 mg/dL (7-17); Calcium 7.5 mg/dL (8.4-10.2); Carbon Dioxide 26 mmol/L (22-30); Chloride 110 mmol/L (98-107); Glucose 95 mg/dL (74-99); LDH 1037 U/L (313-618); Non-African American GFR(CKD) >90 (>60 ml/min/1.73 sqM); Potassium 3.5 mmol/L (3.5-5.1); Sodium 140 mmol/L (137-145); Total Bilirubin 0.5 mg/dL (0.2-1.3); Total Protein 4.4 g/dL (6.3-8.2)
[2020-06-27 05:28] LABS: ABG Base Excess 5.2 mmol/L; ABG HCO3 29 mmol/L (21-25); ABG Oxygen Saturation 91.6 % (94-97); ABG PCO2 38 mmHg (35-45); ABG PH 7.48 (7.35-7.45); ABG PO2 62 mmHg (83-108); ABG TCO2 30 mmol/L (19-24); Allen Test Performed? Yes
[2020-06-27] MEDS: fentaNYL (PF). 1,000 MCG in SODIUM CHLORIDE 0.9% 80 ML IV SCH ×2 (05:46→17:14)
--- NOTE | 2020-06-27 07:23 | XR ---
EXAMINATION TYPE: XR chest 1V portable DATE OF EXAM: 06/27/2020 COMPARISON: Chest x-ray 06/26/2020 HISTORY: Tracheostomy tube, abnormal chest x-ray TECHNIQUE: Single frontal view of the chest is obtained. FINDINGS: Tracheostomy tube is overlying appropriate position, left-sided PICC line is in place with the tip near the cavoatrial junction level. There is no evident pneumothorax or pleural effusion. Bi lateral interstitial and airspace disease is again noted. Cardiac mediastinal silhouette is unchanged . IMPRESSION: Correlate for pneumonia, findings are essentially stable.
[2020-06-27 08:33] LABS: Glucose,Whole Blood 148 mg/dL (75-99)
[2020-06-27] MEDS: INSULIN DETEMIR (LEVEMIR) 100 UNIT/ML SYR SQ SCH (08:44)
[2020-06-27] MEDS: SERTRALINE 50 MG TAB PO SCH (08:45)
[2020-06-27] MEDS: DEXAMETHASONE SOD PHOSPHATE 10 MG/ML 1 ML VIAL IV SCH (08:45)
[2020-06-27] MEDS: FAMOTIDINE 20 MG TAB PO SCH ×2 (08:45→20:31)
[2020-06-27] MEDS: CHLORHEXIDINE GLUCONATE 15 ML CUP MUCOUS MEM SCH ×2 (08:45→20:31)
[2020-06-27] MEDS: ENOXAPARIN 40 MG/0.4 ML SYRINGE SQ SCH ×2 (08:45→20:31)
[2020-06-27] MEDS: CHOLECALCIFEROL 25 MCG (1000 IU) TABLET PO SCH (08:45)
[2020-06-27] MEDS: ASCORBIC ACID 500 MG TAB PO SCH (08:45)
[2020-06-27] MEDS: ARTIFICIAL TEARS-HYPROMELLOSE DROPS 15 ML BTL BOTH EYES SCH ×4 (08:46→20:32)
[2020-06-27] MEDS: ZINC SULFATE 220 MG CAP PO SCH (08:50)
[2020-06-27 11:29] LABS: Glucose,Whole Blood 151 mg/dL (75-99)
--- NOTE | 2020-06-27 11:45 | P.PN ---
Subjective Progress Note Date: 06/27/20 Principal diagnosis: Acute hypoxic failure secondary to COVID-19 pneumonia. 69-year-old white female patient who presented to the emergency department on 06/12/2020 at 1400 in the afternoon with complaints of shortness of breath, and her first onset of symptoms was approximately 2-3 weeks ago. She tested positive for COVID 19 on 06/07/2020. Patient was seen in the emergency department at that time, and was having symptoms of fatigue, shortness of breath and cough. She does have multiple comorbidities including hypertension, diabetes mellitus, dyslipidemia, history of breast cancer, patient is a former smoker. Was outside the window for monoclonal antibody, she was sent home on Decadron, and vitamins. Chest x-ray at that time showed interstitial infiltrates. Patient returned with worsening symptoms, chest x-ray on the 2020 showed interval bilateral diffuse infiltrates. In addition patient was confused, on arrival of the EMS to the scene patient was severely hypoxemic with a pulse ox of only 46%. She was bagged valve ventilated with improvement in her oxygen, she was placed on BiPAP support. Brain CT showed no acute intracranial abnormality. Angiography CT showed no acute abnormality of the head/neck, and a moderate stenosis of the right proximal ICA. CBC was positive for lymphopenia with lymphocyte count 0.6, d-dimer was 1.36, sodium is 143, potassium is 3.9, chloride is 108, CO2 22, BUN is 50, creatinine is 1, glucose level was 321, plasma lactic acid is 1.3, AST was 84, ALT was 31, alk phos was 50, troponin was 0.104, CRP was 334. Patient was started on IV Decadron in the emergency department, she remains on BiPAP support, currently at pressures of 12 and 6 and FiO2 100%, she appears to have increased work of breathing, she is not able to answer questions related to dyspnea, repeat blood gas was done showing pO2 of 68, pCO2 45, pH of 7.39 and subsequently her BiPAP settings were adjusted to 14/7 and FiO2 100%, patient is awaiting a bed in the intensive care unit, she is awake and alert, she did answer some simple questions yes or no for me while on BiPAP support, we'll start the patient on IL-6 MAB, Tocilizumab. We'll continue to closely follow her clinical course, continues to deteriorate patient required intubation and placement on mechanical ventilatory supp On today's evaluation of 06/14/2020 the patient is being seen for a follow-up regarding acute hypoxic respiratory failure and COVID 19 pneumonia. The patient was status post positive on 06/07/2020 and the patient was symptomatic prior to that. The patient presented with hypoxic respiratory failure and the patient was placed on a BiPAP which is currently at the pressure of 14/7 cm of water and FiO2 of 900%. Chest x-ray showing bilateral patchy by troponin infiltrates consistent with pneumonia. The patient was started on steroids and Tocilizumab was ordered. The patient is having increased shortness of breath even while on the BiPAP. The patient is quite dyspneic even while on the BiPAP and is unable to complete full sentences. Blood gases from yesterday was noted. CT angiogram of the head and neck showed moderate stenosis of the right proximal ICA. CAT scan of the brain was negative., CRP of 356, troponin was 0.19 and the patient's d-dimer was 2.13. The patient is currently on Decadron 6 mg IV every 24 hours. The patient is on Lovenox 40 mg subcu every 24 hours. The patient on Levemir insulin 20 units daily at bedtime that was started yesterday the patient will be taken off the insulin drip. Currently the patient is also on various hypertensive medications including Zestoretic and Kl clonidine patch and Norvasc. neurologically, the patient is still quite somnolent. She is moving all 4 extremities. No neck stiffness. This encephalopathy is probably related to Covid 19 infection. Neuro is also on the case. His blood work, the sodium level is at 154 with a BUN of 61 and creatinine of 0.9. The patient on IV fluid and currently receiving 0.9 at the rate of 100 mL an hour. On 06/15/2020, the patient is being seen in follow-up in the intensive care unit. This is a case of 69-year-old female patient with Covid associated pneumonia. The patient remains in the emergency department awaiting her bed in the ICU. Currently she is on a BiPAP at a pressure of 14/7 cm of water with an FiO2 of 100%. The patient is quite synchronous and tolerated the BiPAP treatment. Her current tidal volume generated is around 840 mL with a respiratory rate of 29 and a minute ventilation of 23. Chest x-ray from today has not been done and this is supposed to be repeated. The chest x-ray from yesterday was showing diffuse bilaterally pulmonary infiltrates more so in the left perihilar area. No new blood gases. D-dimer is today at 34 and the CRP level is at 67. LDH is still pending for now. Neurologically, the patient is still lethargic and somnolent and encephalopathic. She is on Precedex running at 0.5 mcg/kg per minute. Lumbar puncture was done yesterday and the patient was found to have a CSF RBC of 7, nucleated cells were only a 2, glucose was 79 and the protein was slightly elevated at 66. This is not consistent with bacterial meningitis. It may be consistent with viral encephalopathy. Gram st ain of the CSF was negative. Cultures are also negative. I would say clinically she is essentially unchanged. She is more comfortable while being on Precedex. She is hemodynamically stable and she is afebrile. She is still receiving IV fluids in the form of D5 half-normal saline at the rate of 1 25 mL an hour. She is currently off the insulin drip. Her blood sugar is at 128 and the patient is on Levemir insulin 20 units daily at bedtime along with a sliding scale coverage. The patient's renal function currently is stable with a BUN of 63 and a creatinine of 0.8. Sodium level was improving and his sodium level was on the decline it was already down to 151. 06/16/2020, the patient remains on a BiPAP in the emergency department a pressure of 14/7 and FiO2 is currently at 80% and her current pulse ox is around 96%. Her generated tidal volume is around 816 with a respiratory rate of 30 and a minute volume of 25 L per minute. I took her off the Precedex yesterday the patient was quite lethargic. This morning, she is more arousable. She is extremely weak. She is following some simple commands. She is wiggling her toes and moving her arms upon demand. She cannot hold a conversation as the patient is very much BiPAP dependent at this point in time. She easily desaturates once she is off the BiPAP. She is hemodynamically stable for now. The chest x-ray showing bilateral pulmonary infiltrates, slightly improved compared to yesterday. In terms of her blood work, the patient's blood sugars at 250. She is currently on D5 half-normal saline at the rate of 150 mL an hour. Her sodium level is improved and is down to 145 and a BUN is 36 with a creatinine of 0.7. Her CRP is down to 41. Her LDH level is up to 3339. Rest of the blood work and electrodes are all within normal limits and as mentioned the sodium level is improved and is down to 145. Her lumbar puncture was done and the findings are essentially related to Covid 19 encephalopathy. Case was discussed with neurology. As for the blood sugars, the patient's blood sugars are running in the mid 200s and the patient is on a sliding scale coverage. No major edema in lower extremities. Cardiac rhythm is sinus for now. 06/17/2020, the patient is being seen in follow-up. Unfortunately, she has remained in the emergency and she hasn't been able to find her way up to the ICU. I have her today on a BiPAP at a pressure of 16/8 cm of water with an FiO2 of 100%. The patient was doing well throughout the night and earlier this morning she became significantly more short of breath, hypoxic and tachycardic. Currently she is struggling with her breathing. She is using excessive muscle breathing even while being on a BiPAP. She is able to generate adequate tidal volumes of around 800 mL and her respiratory rate is in the mid 40s. She is tachycardic with a heart rate of 150, sinus. She is unable to speak. She is anxious. She was given a total of 4 mg of morphine which helped her with the breathlessness and shortness of breath. She is awake and arousable and she is moving all 4 extremities. As mentioned earlier, she is a case of COVID-19 related pneumonia. The patient was treated with a combination of treatment and the patient was given Decadron 6 mg IV every 24 hours. The patient also received Tocilizumab 50 mg IV on 06/13/2020. She was having some degree of encephalopathy that was thought to be a viral encephalopathy in the lumbar puncture was done and it showed some mild elevation of the protein. Otherwise negative. Repeat chest x-ray from today has not been completed. This is in progress. Cardiac rhythm is sinus. The patient is likely headed to intubation/ mechanical ventilation. 06/18/2020, the patient is currently in the intensive care unit. She seems much more comfortable while being on Precedex is running at 0.7 mcg/kg per minute. She is very evasive ventilator and the patient is currently on a pressure of 16/8 with an FiO2 of 100%. She was struggling with her breathing yesterday and she seems to be essentially the same as yesterday without any interval improvement.. Her current respiratory rate is in the order of mid 30s and she is able to generate adequate amount of tidal volume. She is unresponsive. She is on Precedex. Her breathing is unlabored. She is using accessory muscles of breathing. She has less tachycardic to yesterday. She seems to be also less anxious. She is taking morphine on an as-needed basis for shortness of breath and anxiety. On today's blood gas, pH is 7.48 with a pCO2 of 36 and pO2 of 51. Her current pulse ox is 91%. She remains on Decadron 6 mg IV every 24 hours. The patient also received Tocilizumab 720 mg iv. The patient remains also on anticoagulation on Lovenox 45 mg subcu she will 12 hours. In terms of the inflammatory markers, the patient has a d-dimer of above 34, and the patient has a LDH level of 3728 and the patient is a CRP of 29. The inflammatory markers continued to be quite elevated and essentially unchanged compared to yesterday. She is afebrile for now and she is hemodynamically stable on no pressors. She is receiving nutrition via TPN and the patient is decline in her left upper extremity. CSF cultures have been negative. No neck stiffness. Neurology is also on the case and the working diagnosis is COVID-19 related encephalopathy. 06/19/2020 on seeing the patient in the intensive care unit. Noted the patient was brought in to the ICU yesterday and she became progressively more confused, tachypneic, tachycardic and hypoxic and she was failing also BiPAP which she was able to tolerate for a few days. At that point, the decision was to intubate the patient placed on mechanical ventilator. Following intubation, the patient was placed on sedation with propofol and currently propofol is running at 40 mg/kg/m. She also had to be paralyzed and the patient is currently on Nimbex running at 2 mcg/kg per minute. She was taken off the Precedex. For now, she is well sedated and paralyzed on a mechanical ventilator and she is currently on assist control mode rate of 28 with a tidal volume of 400 and FiO2 of 70% with a PEEP of 15. At peak airway pressure on the mechanical ventilator is 33. Static pressure is 31. No orotracheal secretions. The chest x-ray from today showing adequate positioning of the orotracheal tube. The patient also has a orogastric tube in place. The patient had diffuse breath and pulmonary infiltrates consistent with COVID-19 related pneumonia/ARDS. Her d-dimer was elevated at 35 and the patient was receiving 45 mg of subcu Lovenox every 12 hours. LDH from today is 2544 and a CRP level is at 3.4 and both are elevated. Most recent blood gases from this morning shows a pH of 7.39 with a pCO2 of 47 and pO2 of 79. The patient remains on steroids and she is receiving Decadron 6 g IV every 24 hours. Earlier during the shift, the patient became hypotensive and she had to be placed on pressors and the patient is currently on norepinephrine infusion running at 0.06 mcg/kg per minute. Earlier this morning at around 3:15 AM, the patient also went into new onset atrial fibrillation with rapid ventricular response. She was given amiodarone bolus 150 mg IV and following that she was given a amiodarone at 1 mg per minute for loading protocol. There was no impact on her heart rate. The patient was also given Cardizem, bolus initially at a dose of 5 mg IV and following that started on a maintenance of 10 mg an hour. She is currently still having atrial fibrillation and her heart rate is in the 130 to 140 range. Blood pressure is soft and the patient is stranding thousand becoming hypotensive. Urine output is order of early cc an hour. IV fluids are running at 20 mL an hour and the patient is on enteral feeding for nutritional support in the form of vital high protein at the rate of 20 mL an hour and the goal is at 38. In terms of her CSF cultures, if very much came back negative. The patient had over the encephalopathy prior to her getting intubated. The triglyceride at baseline prior to her initiation of propofol infusion was 594. I am inclined to switching this patient alternatives sedation. She was on Precedex however this was not effective in combination with fentanyl. I will consider adding Versed infusion. 06/20/2020, the patient is intubated on a mechanical ventilator and she is currently in the intensive care unit. After being on a BiPAP for several days, the patient decompensated. She presented to us with COVID-19 related pneumonia and encephalopathy. She was on Precedex and BiPAP for extended period of time and ultimately she failed and she was intubated and placed on a mechanical ventilator. Propofol was discontinued as the patient was having an elevated triglyceride level and the patient is currently on Versed running at 5 mg an hour and fentanyl running at 1 mcg/kg per minute. The patient is currently off paralytics. He was discontinued yesterday. In terms of treatment, the patient remains on assist control mode of mechanical ventilation. She is on a tidal volume of 400 with an FiO2 of 70% and a PEEP is at 15 with a respiratory rate of 28 and this is volume cycle assist-control mode. The blood gas showed a pH of 7.39 with a pCO2 50 and pO2 of 64. The chest x-ray from today is showing diffuse interstitial infiltrates bilaterally. Overall findings are essentially unchanged compared to yesterday. Orotracheal tube remains in a good location. The peak anesthetic pressures are 31 and 30 respectively. The patient's lightheadedness a mechanical ventilator and she is currently off paralytics. Meanwhile, at LDH level is at 2253 which is comparable to yesterday and his CRP level from yesterday was at 3.4. Her d-dimer level is at 10.3. She did have a bout of atrial fibrillation yesterday with rapid ventricular response. She was treated with a combination of amiodarone drip and a Cardizem drip. Cardizem drip has been discontinued. Amiodarone drip is running at 0.5 mg per minute and the patient's cardiac rhythm is back in 2 sinus tachycardia and she converted back to sinus yesterday morning. The patient is also on IV heparin infusion. Recommendations are to discontinue the amiodarone for now and keep the IV hepar in for another 24 hours. In terms of hemodynamics, the patient has been off pressors since yesterday. She was running only a low dose of norepinephrine infusion. Currently is on IV fluids running at the rate of 20 mL an hour and the net fluid balance has been +1.6 L since yesterday. Remains on Decadron 6 mg IV every 24 hours. Remains on IV heparin for now. Levemir insulin 36 units for blood sugar control along with NovoLog Scale coverage. Blood sugars continued to be quite elevated. NovoLog 10 units 4 times a day will be also added in combination with sliding scale coverage. On 06/21/2020 patient seen in intensive care unit, patient remains intubated, sedated on assist control mode of ventilation with a rate of 28, tidal vitamins 400, FiO2 of 70%, and PEEP of 15, this morning's blood gas shows a pO2 of 77, pCO2 48, and pH of 7.42, patient's chest x-ray today shows ET tube, NG tube, right-sided PICC line in appropriate positions, bilateral airspace disease similar to the prior exam, no evident pneumothorax or sizable pleural effusion. In terms of drips, patient is on 0.9 normal saline at a rate of 20 ML per hour, she is on Versed at 11 mg per hour, and fentanyl drip is at 1.5 mics per kilo per minute, to prevent has been off in view of elevated triglyceride levels, she is receiving nutritional support in the form of vital high protein at a rate of 38 which is goal with standard water flushes. The rest of the blood work has been reviewed today showing white blood cell, 9.5, hemoglobin of 9.9, platelet count is 214, d-dimer is 5.35 which is improved from 10.39 on yesterday's labs, sodium is 142, potassium is 4.3, chloride is 110, CO2 30, BUN of 48, creatinine 0.74, LFTs are improving, AST and ALT are 45 and 42 respectively, alkaline phosphatase is within normal range at 86 today which is also improved, LDH is trending down, at 1816 on today's labs, CRP is 1.8. In terms of therapy patient is currently on Decadron at 6 mg daily IV, she remains off paralytics, she did have a run of A. fib with RVR for which she had Cardizem drip started, she has not had recurrence of A. fib RVR, she was on heparin infusion which we can switch back over to Lovenox at intermediate doses in view of improving d-dimer and no recurrence of arrhythmias. Echocardiogram showed preserved LV function of 55%, mild MR, and mild TR, no evidence of pulmonary hypertension moderate en largement of the right ventricle. Her blood sugar control has improved, and patient is calm combination of Levemir 46 units daily in addition to NovoLog sliding scale and 10 units of additional NovoLog in addition to sliding scale 4 times daily. Her CSF cultures have shown no growth thus far, cats, mild elevation of temperature, but low-grade fever, with a T-max of 99.8 Patient was reevaluated today on 06/22/2020, remains intubated and mechanically ventilated. Her assist-control rate is 28, tidal volume is 400, FiO2 is 55%, PEEP is 15. Peak airway pressure is 29 static pressures 27. ABG this morning showed a pO2 of 66 pCO2 of 50 pH of 7.42. Remains on Versed at 9 mg per hour, and fentanyl at 1.5 mcg/kg/h. Patient is also on IV fluid at 0.9 normal saline, receiving tube feeding at 58 ML per hour. Patient was switched to Xarelto. From Lovenox. CBC is relatively normal. Her d-dimer is 10.74. Electrolytes are normal. Renal profile is normal. LDH is 1546., Steadily improving, it was as high as 3700 Patient was reevaluated today on 06/23/2020, remains in the ICU, intubated and mechanically ventilated. She is on assist control rate of 28 tidal volume is 400 FiO2 50% PEEP remains 15. I did cut down the PEEP to 12. ABG showed a pO2 of 61 pCO2 of 46 pH of 7.44. Patient remains on Versed and fentanyl, not requiring any Nimbex, Versed is 10 mg per hour, and fentanyl at 1.5 mcg/kg/h. She is on enteral feeding using vital hP and 59/59. Patient is hemodynamically stable, she is in sinus rhythm, peak airway pressure is 28, and static pressure is 17. Chest x-ray continues to show bilateral of disease consistent with COVID-19 pneumonia. Basic metabolic profile is normal renal profile is normal LDH is 1628. C-reactive protein is 2.7 BC is relatively normal. Spinal fluid cultures have been negative from a week ago Patient was reevaluated today on 06/24/2020, remains in the ICU, intubated and mechanically ventilated. He is on assist control rate of 28 tidal volumes 400 FiO2 50% PEEP of 14. ABG showed a pO2 of 58 pCO2 of 52 pH of 7.40. Patient is on fentanyl at 1.5 and Versed at 11 mg per hour. My plan is to give the patient a sedation holiday. And assess mental status. Although the patient remains on relatively high PEEP, she is not ready to wean, and I would recommend tracheostomy and PEG tube placement on this patient. Remains on vital Hp at 59 mL per hour. Surgical consultation for tracheostomy and PEG tube was initiated. WBC count is 9.9 hemoglobin is 10.4. Electrolytes are normal. Renal profile is normal. LDH remains high at 1572. C-reactive protein is 4.0. Both seem to be trending down. And showing improvement. Chest x-ray continues to show bilateral pneumonia. Not much of a change consultant the last few days. Patient was reevaluated today on 06/25/2020, remains in the ICU, intubated and mechanically ventilated. She is now on assist control rate of 28 tidal volume 400 FiO2 50% and PEEP at 14. Her ABG showed a pO2 of 61 pCO2 of 53 pH of 7.40. Hence no changes were made in the ventilator settings. The patient remains on Versed at 11 mg per hour, fentanyl at 1.5 mcg/kg/h, and IV fluid at KVO. Chest x-ray continues to show basically bibasilar infiltrates. Patient is scheduled to have PEG and tracheostomy tube placement today. Her enteral feeding is presently on hold. CBC is relatively normal. Electrolytes and renal profile are relatively normal. LDH is 1510, C-reactive protein is 7.5. Reevaluated today on 06/26/2020, patient remains in the ICU, intubated and mechanically ventilated. She is status post tracheostomy and PEG tube placement done yesterday on 06/25. Vent settings are assist control rate 28 tidal volume is 400 FiO2 50% PEEP of 14 ABG showed a pO2 of 60 pCO2 of 44 pH of 7.47. Patient remains on Versed and on fentanyl. My plan is to discontinue both today, assess the patient's mental status off sedation, and decide whether she needs to be on that much sedation or not after waking up with the patient and assessing mental status. Tube feeds remain on hold at present because the patient had a PEG tube placed yesterday. She will be restarted back on vital hp at 59 mL per hour. Again the patient will receive today at least a brief sedation holiday. Patient is hemodynamically stable, chest x-ray continues to show minimal bibasilar infiltrates, consistent with COVID-19 pneumonia. I mproved compared to her baseline. CBC is normal. Basic metabolic profile is normal. D-dimer is 29.03 LDH is 1368 C-reactive protein is 7.7. Patient was on Lovenox at 40 mg subcu twice a day, and I will go ahead and place her back on Lovenox, may eventually restart her back on Xarelto and discontinue Lovenox. Patient was reevaluated today on 06/27/2020, remains in the ICU, intubated and mechanically ventilated. Sedated but not requiring any paralytics. Patient is on assist control rate of 28 tidal volume is 400 FiO2 50% and PEEP of 14. Her ABG showed a pO2 of 62 pCO2 of 38 pH of 7.48. Patient is receiving vital Hb at 30 mL per hour. She is on fentanyl at 1 mcg/kg/m, she is also on Versed at 11 milligrams per hour. Her IV fluid is at KVO. And will increase the IV fluid today a bit. Attempts have been made over the last few days to cut down on sedation, however the patient gets extremely agitated, no appropriate responses have been noted on lower amounts of sedation. And will give the patient today another trial of lowering sedation and assessment of mental status. Previous attempts have failed in the last few days. But we will continue to try sedation holidays on a daily basis. At least the patient is not requiring any paralytics. Chest x-ray continues to show by basilar infiltrates. Not significantly changed over the last few days. LDH today is 1037 C-reactive protein is 7.0. Steadily improving considering the patient had LDH in the range of 3400 in the last few days ABC today is relatively normal hemoglobin is 9.7. Basic metabolic profile is normal with relatively normal renal profile. Objective - Vital Signs Vital signs: Vital Signs Temp 99 F 06/27/20 08:00 Pulse 85 06/27/20 10:00 Resp 28 H 06/27/20 10:00 BP 134/68 06/27/20 07:00 Pulse Ox 90 L 06/27/20 10:00 Intake & Output 06/26/20 06/27/20 06/27/20 18:59 06:59 18:59 Intake Total 540 809.720 389.376 Output Total 645 610 175 Balance -105 199.720 214.376 Weight 89.7 kg Intake: IV 240 270 69 .9NS A line 30 9 0.9 240 240 60 Intake, IV Titration 300 359.720 150.376 Amount Midazolam HCl 200 mg In 200 172.883 80.85 Sodium Chloride 0.9% 160 ml @ 10 MG/HR 10 mls/hr IV .Q10H [facility] Rx#: [id number] fentaNYL (PF). 1,000 mcg 100 186.837 69.526 In Sodium Chloride 0.9% 80 ml @ Per Protocol IV . Q0M [facility] Rx#:[id number] Tube Feeding 120 60 Other 60 110 Output: Urine 645 610 175 Other: Voiding Method Indwelling Catheter Indwelling Catheter Indwelling Catheter ABP, PAP, CO, CI - Last Documented Arterial Blood Pressure 111/48 - Exam GENERAL EXAM: sedated, intubated, 69-year-old white female, intubated, mechanically ventilated, sedated. Status post tracheostomy and PEG tube placement on 06/25 Head: Atraumatic, normocephalic. A colostomy is intact. HEENT: PERRLA, EOMI, nonicteric, no neck masses, no JVD, no stridor. CHEST: No chest wall deformity. Symmetrical expansion. LUNGS: Symmetrical chest expansion, crackles at the bases CVS: Regular rate and rhythm, normal S1 and S2, no gallops, no murmurs, no rubs ABDOMEN: Soft, nontender. No hepatosplenomegaly, normal bowel sounds, no guarding or rigidity. PEG tube is intact. EXTREMITIES: No clubbing, no edema, no cyanosis, 2+ pulses and upper and lower extremities. MUSCULOSKELETAL: Could not assess, patient is sedated. SKIN: No rashes CENTRAL NERVOUS SYSTEM: Sedated, intubated , could not assess - Labs CBC & Chem 7: 06/27/20 04:00 06/27/20 04:00 Labs: Abnormal Lab Results - Last 24 Hours (Table) 06/26/20 06/26/20 06/26/20 Range/Units 12:14 17:21 20:48 RBC (3.80-5.40) m/uL Hgb (11.4-16.0) gm/dL Hct (34.0-46.0) % RDW (11.5-15.5) % Lymphocytes # (1.0-4.8) k/uL D-Dimer (<0.60) mg/L FEU ABG pH (7.35-7.45) ABG pO2 (83-108) mmHg ABG HCO3 (21-25) mmol/L ABG Total CO2 (19-24) mmol/L ABG O2 Saturation (94-97) % Chloride (98-107) mmol/L BUN (7-17) mg/dL Creatinine (0.52-1.04) mg/dL POC Glucose (mg/dL) 195 H 213 H 131 H (75-99) mg/dL Calcium (8.4-10.2) mg/dL Lactate Dehydrogenase (313-618) U/L C-Reactive Protein (<1.0) mg/dL Total Protein (6.3-8.2) g/dL Albumin (3.5-5.0) g/dL 06/27/20 06/27/20 06/27/20 Range/Units 04:00 04:00 04:00 RBC 3.04 L (3.80-5.40) m/uL Hgb 9.7 L (11.4-16.0) gm/dL Hct 28.8 L (34.0-46.0) % RDW 15.8 H (11.5-15.5) % Lymphocytes # 0.4 L (1.0-4.8) k/uL D-Dimer 17.88 H (<0.60) mg/L FEU ABG pH (7.35-7.45) ABG pO2 (83-108) mmHg ABG HCO3 (21-25) mmol/L ABG Total CO2 (19-24) mmol/L ABG O2 Saturation (94-97) % Chloride 110 H (98-107) mmol/L BUN 30 H (7-17) mg/dL Creatinine 0.42 L (0.52-1.04) mg/dL POC Glucose (mg/dL) (75-99) mg/dL Calcium 7.5 L (8.4-10.2) mg/dL Lactate Dehydrogenase 1037 H (313-618) U/L C-Reactive Protein 7.0 H (<1.0) mg/dL Total Protein 4.4 L (6.3-8.2) g/dL Albumin 2.2 L (3.5-5.0) g/dL 06/27/20 06/27/20 06/27/20 Range/Units 05:21 08:30 11:27 RBC (3.80-5.40) m/uL Hgb (11.4-16.0) gm/dL Hct (34.0-46.0) % RDW (11.5-15.5) % Lymphocytes # (1.0-4.8) k/uL D-Dimer (<0.60) mg/L FEU ABG pH 7.48 H (7.35-7.45) ABG pO2 62 L (83-108) mmHg ABG HCO3 29 H (21-25) mmol/L ABG Total CO2 30 H (19-24) mmol/L ABG O2 Saturation 91.6 L (94-97) % Chloride (98-107) mmol/L BUN (7-17) mg/dL Creatinine (0.52-1.04) mg/dL POC Glucose (mg/dL) 148 H 151 H (75-99) mg/dL Calcium (8.4-10.2) mg/dL Lactate Dehydrogenase (313-618) U/L C-Reactive Protein (<1.0) mg/dL Total Protein (6.3-8.2) g/dL Albumin (3.5-5.0) g/dL Assessment and Plan Assessment: Impression: Acute hypoxic respiratory failure secondary to COVID-19 pneumonia. Patient was outside the window for BAM, patient received toci and Decadron , and COVID-19 cocktail. Patient was intubated on 06/18, not requiring any paralytics. New onset atrial fibrillation with RVR now on Xarelto. She was treated with amiodarone, heparin Elevated inflammatory markers secondary to above. History of CVA and aphasia. Hypertension. 2 diabetes. Dyslipidemia. History of right-sided mastectomy for breast cancer. Former smoker. Dyslipidemia. Status post tracheostomy and PEG tube placement on 06/25/2020. Recommendation: Continue tracheostomy and PEG tube care. Resume enteral feeding via PEG tube sometime later today. Continue ventilatory support. No changes in the vent settings made today. Not ready for weaning, but we will continue to have sedation holidays on a daily basis if possible. Continue the COVID-19 cocktail. Patient did receive toci. Continue Lovenox 40 mg subcu twice a day. Patient holiday off Versed and fentanyl and assess mental status today. Continue to monitor inflammatory markers. Continue to titrate FiO2 and PEEP down accordingly. Continue Decadron. Continue GI and DVT prophylaxis. Critical care time is over 30 minutes. Time with Patient: Greater than 30
--- NOTE | 2020-06-27 15:21 | P.PN ---
Progress Note - Text Progress Note Date: 06/27/20 Patient's tracheostomy site has had some minimal bleeding. PEG tube site is clean. Patient will continue receive supportive care.
[2020-06-27 16:07] LABS: Glucose,Whole Blood 190 mg/dL (75-99)
[2020-06-27 17:20] LABS: Glucose,Whole Blood 190 mg/dL (75-99)
[2020-06-27 20:23] LABS: Glucose,Whole Blood 140 mg/dL (75-99)
[2020-06-27] MEDS: ATORVASTATIN 10 MG TAB PO SCH (20:31)
--- NOTE | 2020-06-27 22:36 | P.PN ---
Subjective Progress Note Date: 06/27/20 Principal diagnosis: Acute Hypoxic Respiratory Failure due to COVID -19 Pneumonia Ms. Killian is a 69-year-old female, who follows with Dr. Eubanks, with a past medical history of diabetes mellitus, hypertension, hyperlipidemia, osteoarthritis, obstructive sleep apnea, history of breast cancer with right mastectomy admitted for acute severe bilateral Covid 19 pneumonia. On 06/26/2020 -patient was seen and examined at bedside. She is currently in the ICU, intubated and mechanically ventilated. She is on assist control 28, FiO2 50%, with PEEP of 14. She continues to be on fentanyl and Versed. She is status post tracheostomy and PEG tube placement done on 06/25. Patient had a chest x-ray done this morning showing bibasilar infiltrates and ABGs done this morning showing pH 7.47, PO2 60, PCO2 44. Reviewing the vitals temperature of 97.8, heart rate 70s to 80s, blood pressure 100-110 by 40s to 50s. Review of systems could not be done as the patient is intubated and sedated. On 06/27/2020 patient was seen and examined at the bedside. She is in the ICU. Intubated and sedated with tracheostomy and PEG tube in place. No acute events reported by nursing staff overnight. ABGs done this morning showing pH of 7.48, PO2 62, PCO2 of 38. She is on fentanyl and Versed. Sedation holiday was tried, patient was agitated and so put back on sedation again. Chest x-ray done this morning showing bilateral interstitial airspace disease, which goes along with her diagnosis of COVID-19 pneumonia. Reviewing the vitals T-max 98.2, heart rate 80, respiratory rate, mechanically ventilated, blood pressure 1 10-1 20 /50s to 70s. Reviewing the labs white count of 7.8, hemoglobin 9.7, platelets 238. Sodium 140, potassium 3.5, chloride 110, bicarb 26, BUN 30, creatinine 0.42. Albumin 2.2. Active Medications Acetaminophen (Acetaminophen Suppository 650 Mg Supp) 650 mg RECTAL Q4HR PRN PRN Reason: Fever And/ Or Mild Pain Last Admin: 06/13/20 21:46 Dose: 650 mg Documented by: Artificial Tears (Artificial Tears-Hypromellose Drops 15 Ml Btl) 2 drops BOTH EYES QID [facility] Last Admin: 06/27/20 20:32 Dose: 2 drops Documented by: Ascorbic Acid (Ascorbic Acid 500 Mg Tab) 1,000 mg PO DAILY [facility] Last Admin: 06/27/20 08:45 Dose: 1,000 mg Documented by: Atorvastatin Calcium (Atorvastatin 10 Mg Tab) 10 mg PO HS [facility] Last Admin: 06/27/20 20:31 Dose: 10 mg Documented by: Chlorhexidine Gluconate (Chlorhexidine Gluconate 15 Ml Cup) 15 ml MUCOUS MEM BID [facility] Last Admin: 06/27/20 20:31 Dose: 15 ml Documented by: Cholecalciferol (Cholecalciferol 25 Mcg (1000 Iu) Tablet) 25 mcg PO DAILY [facility] Last Admin: 06/27/20 08:45 Dose: 25 mcg Documented by: Dexamethasone Sodium Phosphate (Dexamethasone Sod Phosphate 10 Mg/Ml 1 Ml Vial) 6 mg IV DAILY [facility] Last Admin: 06/27/20 08:45 Dose: 6 mg Documented by: Enoxaparin Sodium (Enoxaparin 40 Mg/0.4 Ml Syringe) 40 mg SQ BID [facility] Last Admin: 06/27/20 20:31 Dose: 40 mg Documented by: Famotidine (Famotidine 20 Mg Tab) 20 mg PO Q12HR [facility] Last Admin: 06/27/20 20:31 Dose: 20 mg Documented by: Fentanyl Citrate 1,000 mcg/ (Sodium Chloride) 100 mls @ 0 mls/hr IV .Q0M [facility]; Protocol Last Admin: 06/27/20 17:14 Dose: 1 mcg/kg/hr, 8.61 mls/hr Documented by: Midazolam HCl 200 mg/ Sodium (Chloride) 200 mls @ 10 mls/hr IV .Q10H [facility]; Protocol Last Admin: 06/27/20 21:10 Dose: 9 mg/hr, 9 mls/hr Documented by: Insulin Aspart (Insulin Aspart (Novolog) 100 Unit/Ml Vial) 0 unit SQ Q4H [facility]; Protocol Last Admin: 06/27/20 20:31 Dose: 1 unit Documented by: Insulin Aspart (Insulin Aspart (Novolog) 100 Unit/Ml Vial) 10 unit SQ Q4H [facility] Last Admin: 06/27/20 20:32 Dose: 10 unit Documented by: Insulin Detemir (Insulin Detemir (Levemir) 100 Unit/Ml Syr) 46 unit SQ DAILY@0700 [facility] Last Admin: 06/27/20 08:44 Dose: 46 unit Documented by: Miscellaneous Information (Potassium Replacement Protocol 1 Each Misc) 1 each MISCELLANE DAILY PRN; Protocol PRN Reason: Per Protocol Miscellaneous Information (Magnesium Replacement Protocol 1 Each Misc) 1 each MISCELLANE DAILY PRN; Protocol PRN Reason: Per Protocol Naloxone HCl (Naloxone 0.4 Mg/Ml 1 Ml Vial) 0.2 mg IV Q2M PRN PRN Reason: Opioid Reversal Sertraline HCl (Sertraline 50 Mg Tab) 50 mg PO DAILY [facility] Last Admin: 06/27/20 08:45 Dose: 50 mg Documented by: Sodium Chloride (Sodium Chloride 0.9% Flush 10 Ml Syringe) 10 ml IV Q4HR PRN PRN Reason: PICC Line Sodium Chloride (Sodium Chloride 0.9% Flush 10 Ml Syringe) 10 ml IV WEEKLY [facility] Last Admin: 06/23/20 09:54 Dose: 10 ml Documented by: Sodium Chloride (Sodium Chloride 0.9% Flush 10 Ml Syringe) 20 ml IV Q4HR PRN PRN Reason: PICC Line Zinc Sulfate (Zinc Sulfate 220 Mg Cap) 220 mg PO DAILY [facility] Last Admin: 06/27/20 08:50 Dose: 220 mg Documented by: Objective - Vital Signs Vital signs: Vital Signs Temp 99.2 F 06/27/20 12:00 Pulse 93 06/27/20 14:00 Resp 21 06/27/20 14:00 BP 134/68 06/27/20 07:00 Pulse Ox 91 L 06/27/20 14:00 Intake & Output 06/26/20 06/27/20 06/27/20 18:59 06:59 18:59 Intake Total 540 809.720 631.376 Output Total 645 610 400 Balance -105 199.720 231.376 Weight 89.7 kg Intake: IV 240 270 161 .9NS A line 30 21 0.9 240 240 140 Intake, IV Titration 300 359.720 150.376 Amount Midazolam HCl 200 mg In 200 172.883 80.85 Sodium Chloride 0.9% 160 ml @ 10 MG/HR 10 mls/hr IV .Q10H [facility] Rx#: [id number] fentaNYL (PF). 1,000 mcg 100 186.837 69.526 In Sodium Chloride 0.9% 80 ml @ Per Protocol IV . Q0M [facility] Rx#:[id number] Tube Feeding 120 180 Other 60 140 Output: Urine 645 610 400 Other: Voiding Method Indwelling Catheter Indwelling Catheter Indwelling Catheter ABP, PAP, CO, CI - Last Documented Arterial Blood Pressure 127/59 - Exam GENERAL EXAM: sedated, intubated, 69-year-old white female, intubated, mechanically ventilated, sedated. Status post tracheostomy and PEG tube placement on 06/25 Head: Atraumatic, normocephalic. Tracheostomy in place. HEENT: PERRLA, EOMI, nonicteric, no neck masses, no JVD, no stridor. CHEST: No chest wall deformity. Symmetrical expansion. LUNGS: Symmetrical chest expansion, crackles at the bases CVS: Regular rate and rhythm, normal S1 and S2, ABDOMEN: Soft, nontender. PEG tube is intact. EXTREMITIES: No clubbing,pitting edema in all 4 extremities, no cyanosis, 2+ pulses and upper and lower extremities. CENTRAL NERVOUS SYSTEM: Sedated, intubated so could not assess - Labs CBC & Chem 7: 06/28/20 04:45 06/28/20 04:45 Labs: Abnormal Lab Results - Last 24 Hours (Table) 06/26/20 06/26/20 06/27/20 Range/Units 17:21 20:48 04:00 RBC 3.04 L (3.80-5.40) m/uL Hgb 9.7 L (11.4-16.0) gm/dL Hct 28.8 L (34.0-46.0) % RDW 15.8 H (11.5-15.5) % Lymphocytes # 0.4 L (1.0-4.8) k/uL D-Dimer (<0.60) mg/L FEU ABG pH (7.35-7.45) ABG pO2 (83-108) mmHg ABG HCO3 (21-25) mmol/L ABG Total CO2 (19-24) mmol/L ABG O2 Saturation (94-97) % Chloride (98-107) mmol/L BUN (7-17) mg/dL Creatinine (0.52-1.04) mg/dL POC Glucose (mg/dL) 213 H 131 H (75-99) mg/dL Calcium (8.4-10.2) mg/dL Lactate Dehydrogenase (313-618) U/L C-Reactive Protein (<1.0) mg/dL Total Protein (6.3-8.2) g/dL Albumin (3.5-5.0) g/dL 06/27/20 06/27/20 06/27/20 Range/Units 04:00 04:00 05:21 RBC (3.80-5.40) m/uL Hgb (11.4-16.0) gm/dL Hct (34.0-46.0) % RDW (11.5-15.5) % Lymphocytes # (1.0-4.8) k/uL D-Dimer 17.88 H (<0.60) mg/L FEU ABG pH 7.48 H (7.35-7.45) ABG pO2 62 L (83-108) mmHg ABG HCO3 29 H (21-25) mmol/L ABG Total CO2 30 H (19-24) mmol/L ABG O2 Saturation 91.6 L (94-97) % Chloride 110 H (98-107) mmol/L BUN 30 H (7-17) mg/dL Creatinine 0.42 L (0.52-1.04) mg/dL POC Glucose (mg/dL) (75-99) mg/dL Calcium 7.5 L (8.4-10.2) mg/dL Lactate Dehydrogenase 1037 H (313-618) U/L C-Reactive Protein 7.0 H (<1.0) mg/dL Total Protein 4.4 L (6.3-8.2) g/dL Albumin 2.2 L (3.5-5.0) g/dL 06/27/20 06/27/20 Range/Units 08:30 11:27 RBC (3.80-5.40) m/uL Hgb (11.4-16.0) gm/dL Hct (34.0-46.0) % RDW (11.5-15.5) % Lymphocytes # (1.0-4.8) k/uL D-Dimer (<0.60) mg/L FEU ABG pH (7.35-7.45) ABG pO2 (83-108) mmHg ABG HCO3 (21-25) mmol/L ABG Total CO2 (19-24) mmol/L ABG O2 Saturation (94-97) % Chloride (98-107) mmol/L BUN (7-17) mg/dL Creatinine (0.52-1.04) mg/dL POC Glucose (mg/dL) 148 H 151 H (75-99) mg/dL Calcium (8.4-10.2) mg/dL Lactate Dehydrogenase (313-618) U/L C-Reactive Protein (<1.0) mg/dL Total Protein (6.3-8.2) g/dL Albumin (3.5-5.0) g/dL Assessment and Plan Assessment: ASSESSMENT Acute hypoxic respiratory failure secondary to COVID-19 pneumonia. New onset atrial fibrillation with RVR S/P Tracheostomy and PEG tube placement on 06/25/2020 Elevated inflammatory markers History of CVA and aphasia. Hypertension. Type 2 diabetes. Dyslipidemia. History of right-sided mastectomy for breast cancer. Former smoker. Dyslipidemia. PLAN: Patient was outside the window for BAM, patient received tociluzumab .S/P Tracheostomy and PEG tube placement on 06/25/2020. She was treated with amiodarone, heparin for A. fib and now on Lovenox .Continue with steroids, IV fluids, continue with vitamin C, vitamin D and zinc. Ventilator , weaning trail and sedation holiday as per ICU management. Tracheostomy and PEG tube care. Might be a candidate for LTAC. Over all prognosis is poor.
[2020-06-28 00:09] LABS: Glucose,Whole Blood 123 mg/dL (75-99)
[2020-06-28] MEDS: INSULIN ASPART (NovoLOG) 100 UNIT/ML VIAL SQ SCH ×14 (00:24→23:57)
[2020-06-28] MEDS: fentaNYL (PF). 1,000 MCG in SODIUM CHLORIDE 0.9% 80 ML IV SCH (01:49)
[2020-06-28 04:46] LABS: Glucose,Whole Blood 108 mg/dL (75-99)
[2020-06-28 04:57] LABS: Basophils % (A) 0 %; Eosinophils # (A) 0.1 k/uL (0-0.7); Eosinophils % (A) 1 %; HCT 28.8 % (34.0-46.0); HGB 9.4 gm/dL (11.4-16.0); Hypochromasia Slight; Lymphocytes # (A) 0.4 k/uL (1.0-4.8); Lymphocytes % (A) 5 %; MCH 30.7 pg (25.0-35.0); MCHC 32.5 g/dL (31.0-37.0); MCV 94.6 fL (80.0-100.0); Mean Platelet Volume 9.4; Monocytes # (A) 0.2 k/uL (0-1.0); Monocytes % (A) 3 %; Neutrophils # (A) 7.4 k/uL (1.3-7.7); Neutrophils % (A) 91 %; Platelet Count 248 k/uL (150-450); RBC 3.05 m/uL (3.80-5.40); RDW 15.7 % (11.5-15.5); WBC 8.2 k/uL (3.8-10.6)
[2020-06-28 05:11] LABS: ALT 35 U/L (4-34); AST 33 U/L (14-36); African American GFR (CKD) >90 (>60 ml/min/1.73 sqM); Albumin 2.6 g/dL (3.5-5.0); Alkaline Phosphatase 66 U/L (38-126); Anion Gap 3 mmol/L; Blood Urea Nitrogen 31 mg/dL (7-17); Calcium 8.8 mg/dL (8.4-10.2); Carbon Dioxide 31 mmol/L (22-30); Chloride 106 mmol/L (98-107); Glucose 97 mg/dL (74-99); LDH 1048 U/L (313-618); Non-African American GFR(CKD) >90 (>60 ml/min/1.73 sqM); Potassium 4.1 mmol/L (3.5-5.1); Sodium 140 mmol/L (137-145); Total Bilirubin 0.5 mg/dL (0.2-1.3); Total Protein 5.3 g/dL (6.3-8.2)
[2020-06-28 05:26] LABS: ABG Base Excess 6.3 mmol/L; ABG HCO3 30 mmol/L (21-25); ABG Oxygen Saturation 91.2 % (94-97); ABG PCO2 41 mmHg (35-45); ABG PH 7.48 (7.35-7.45); ABG PO2 64 mmHg (83-108); ABG TCO2 31 mmol/L (19-24); Allen Test Performed? Yes
[2020-06-28] MEDS: SODIUM CHLORIDE 0.9% IV SCH (05:43)
[2020-06-28] MEDS: MIDAZOLAM HCL IV SCH (05:43)
[2020-06-28 05:51] LABS: C Reactive Protein 7.4 mg/dL (<1.0)
[2020-06-28] MEDS: INSULIN DETEMIR (LEVEMIR) 100 UNIT/ML SYR SQ SCH (06:47)
[2020-06-28 07:46] LABS: Glucose,Whole Blood 163 mg/dL (75-99)
[2020-06-28] MEDS: CHLORHEXIDINE GLUCONATE 15 ML CUP MUCOUS MEM SCH ×2 (08:54→20:16)
[2020-06-28] MEDS: FAMOTIDINE 20 MG TAB PO SCH ×2 (08:55→20:16)
[2020-06-28] MEDS: ASCORBIC ACID 500 MG TAB PO SCH (08:55)
[2020-06-28] MEDS: SERTRALINE 50 MG TAB PO SCH (08:55)
[2020-06-28] MEDS: ZINC SULFATE 220 MG CAP PO SCH (08:55)
[2020-06-28] MEDS: ENOXAPARIN 40 MG/0.4 ML SYRINGE SQ SCH ×2 (08:55→20:16)
[2020-06-28] MEDS: CHOLECALCIFEROL 25 MCG (1000 IU) TABLET PO SCH (08:55)
[2020-06-28] MEDS: DEXAMETHASONE SOD PHOSPHATE 10 MG/ML 1 ML VIAL IV SCH (08:55)
[2020-06-28] MEDS: ARTIFICIAL TEARS-HYPROMELLOSE DROPS 15 ML BTL BOTH EYES SCH ×4 (08:56→20:16)
--- NOTE | 2020-06-28 09:03 | XR ---
EXAMINATION TYPE: XR chest 1V portable DATE OF EXAM: 06/28/2020 COMPARISON: Chest x-ray 06/27/2020 HISTORY: Tracheostomy tube, abnormal chest x-ray, ICU management TECHNIQUE: Single frontal view of the chest is obtained. FINDINGS: Patient is rotated. Tracheostomy tube is overlying appropriate position. Left-sided PICC l ine shows the distal tip near the cavoatrial junction. Lower parenchymal changes are similar to prior exam. No evident pneumothorax or sizable effusion. Cardiac mediastinal silhouette is stable. IMPRESSION: Correlate for pneumonia.
--- NOTE | 2020-06-28 11:13 | P.PN ---
Subjective Progress Note Date: 06/28/20 Principal diagnosis: COVID 19 pneumonia. Patient was reevaluated today on 06/23/2020, remains in the ICU, intubated and mechanically ventilated. She is on assist control rate of 28 tidal volume is 400 FiO2 50% PEEP remains 15. I did cut down the PEEP to 12. ABG showed a pO2 of 61 pCO2 of 46 pH of 7.44. Patient remains on Versed and fentanyl, not requiring any Nimbex, Versed is 10 mg per hour, and fentanyl at 1.5 mcg/kg/h. She is on enteral feeding using vital hP and 59/59. Patient is hemodynamically stable, she is in sinus rhythm, peak airway pressure is 28, and static pressure is 17. Chest x-ray continues to show bilateral of disease consistent with COVID-19 pneumonia. Basic metabolic profile is normal renal profile is normal LDH is 1628. C-reactive protein is 2.7 BC is relatively normal. Spinal fluid cultures have been negative from a week ago Patient was reevaluated today on 06/24/2020, remains in the ICU, intubated and mechanically ventilated. He is on assist control rate of 28 tidal volumes 400 FiO2 50% PEEP of 14. ABG showed a pO2 of 58 pCO2 of 52 pH of 7.40. Patient is on fentanyl at 1.5 and Versed at 11 mg per hour. My plan is to give the patient a sedation holiday. And assess mental status. Although the patient remains on relatively high PEEP, she is not ready to wean, and I would recommend tracheostomy and PEG tube placement on this patient. Remains on vital Hp at 59 mL per hour. Surgical consultation for tracheostomy and PEG tube was initiated. WBC count is 9.9 hemoglobin is 10.4. Electrolytes are normal. Renal profile is normal. LDH remains high at 1572. C-reactive protein is 4.0. Both seem to be trending down. And showing improvement. Chest x-ray continues to show bilateral pneumonia. Not much of a pipe changer the last few days. Patient was reevaluated today on 06/25/2020, remains in the ICU, intubated and me chanically ventilated. She is now on assist control rate of 28 tidal volume 400 FiO2 50% and PEEP at 14. Her ABG showed a pO2 of 61 pCO2 of 53 pH of 7.40. Hence no changes were made in the ventilator settings. The patient remains on Versed at 11 mg per hour, fentanyl at 1.5 mcg/kg/h, and IV fluid at KVO. Chest x-ray continues to show basically bibasilar infiltrates. Patient is scheduled to have PEG and tracheostomy tube placement today. Her enteral feeding is presently on hold. CBC is relatively normal. Electrolytes and renal profile are relatively normal. LDH is 1510, C-reactive protein is 7.5. Reevaluated today on 06/26/2020, patient remains in the ICU, intubated and mechanically ventilated. She is status post tracheostomy and PEG tube placement done yesterday on 06/25. Vent settings are assist control rate 28 tidal volume is 400 FiO2 50% PEEP of 14 ABG showed a pO2 of 60 pCO2 of 44 pH of 7.47. Patient remains on Versed and on fentanyl. My plan is to discontinue both tod ay, assess the patient's mental status off sedation, and decide whether she needs to be on that much sedation or not after waking up with the patient and assessing mental status. Tube feeds remain on hold at present because the patient had a PEG tube placed yesterday. She will be restarted back on vital hp at 59 mL per hour. Again the patient will receive today at least a brief sedation holiday. Patient is hemodynamically stable, chest x-ray continues to show minimal bibasilar infiltrates, consistent with COVID-19 pneumonia. Improved compared to her baseline. CBC is normal. Basic metabolic profile is normal. D-dimer is 29.03 LDH is 1368 C-reactive protein is 7.7. Patient was on Lovenox at 40 mg subcu twice a day, and I will go ahead and place her back on Lovenox, may eventually restart her back on Xarelto and discontinue Lovenox. Patient was reevaluated today on 06/27/2020, remains in the ICU, intubated and mechanically ventilated. Sedated but not requiring any paralytics. Patient is on assist control rate of 28 tidal volume is 400 FiO2 50% and PEEP of 14. Her ABG showed a pO2 of 62 pCO2 of 38 pH of 7.48. Patient is receiving vital Hb at 30 mL per hour. She is on fentanyl at 1 mcg/kg/m, she is also on Versed at 11 milligrams per hour. Her IV fluid is at KVO. And will increase the IV fluid today a bit. Attempts have been made over the last few days to cut down on sedation, however the patient gets extremely agitated, no appropriate responses have been noted on lower amounts of sedation. And will give the patient today another trial of lowering sedation and assessment of mental status. Previous attempts have failed in the last few days. But we will continue to try sedation holidays on a daily basis. At least the patient is not requiring any paralytics . Chest x-ray continues to show by basilar infiltrates. Not significantly changed over the last few days. LDH today is 1037 C-reactive protein is 7.0. Steadily improving considering the patient had LDH in the range of 3400 in the last few days ABC today is relatively normal hemoglobin is 9.7. Basic metabolic profile is normal with relatively normal renal profile. Progress note dated 06/28/2020. The patient was admitted on June 12. The patient was intubated on June 18. The patient underwent tracheostomy and PEG tube placement on June 25. She was diagnosed with COVID 19 pneumonia with hypoxemic respiratory failure. The patient is again seen in the intensive care unit room 254. She remains on the mechanical ventilator, on the volume assist control mode, rate 28, tidal volume 400, FiO2 50%, and PEEP of 14. Blood gases show a PaO2 of 64, PaCO2 of 40, and pH of 7.47. She remains on a Versed drip at 9 mg an hour, fentanyl drip at 1 mcg/kg/h, saline at 20 mL an hour, and vital high protein at 59 mL an hour, which is goal. We will DC the Versed and get the patient on propofol. We will attempt to get the patient off the fentanyl drip by using Dilaudid when necessary. Labs include a white count 8.2, hemoglobin 9.4, hematocrit 28.8, and platelet count 240,000. D-dimer is 12.34. Sodium 140, potassium 4.1, chlorides 106, CO2 31, anion gap 3, BUN 31, creatinine 0.48. Chest x-ray shows bilateral diffuse infiltrates. Tracheostomy tube is noted. Objective - Vital Signs Vital signs: Vital Signs Temp 97.8 F 06/28/20 04:00 Pulse 95 06/28/20 07:00 Resp 28 H 06/28/20 07:00 BP 134/68 06/27/20 07:00 Pulse Ox 91 L 06/28/20 07:00 Intake & Output 06/27/20 06/28/20 06/28/20 18:59 06:59 18:59 Intake Total 994.731 4310.202 73 Output Total 770 710 40 Balance 186.850 300.202 33 Weight 89.9 kg Intake: IV 276 276 23 .9NS A line 36 36 3 0.9 240 240 20 Intake, IV Titration 180.850 164.202 Amount Midazolam HCl 200 mg In 80.85 90.3 Sodium Chloride 0.9% 160 ml @ 10 MG/HR 10 mls/hr IV .Q10H [facility] Rx#: [id number] fentaNYL (PF). 1,000 mcg 100.000 73.902 In Sodium Chloride 0.9% 80 ml @ Per Protocol IV . Q0M [facility] Rx#:[id number] Tube Feeding 330 430 50 Other 170 140 Output: Urine 770 710 40 Other: Voiding Method Indwelling Catheter Indwelling Catheter ABP, PAP, CO, CI - Last Documented Arterial Blood Pressure 121/49 - Exam No acute distress, sedated, with a midline tracheostomy tube. HEENT examination is grossly unremarkable. Neck supple. Full range of motion. No adenopathy thyromegaly or neck vein dist ention. Cardiovascular examination reveals regular rhythm rate. S1-S2 normal. No S3 or S4. No discernible murmur noted. Heart rate is 83 bpm. Heart sounds are distant. Lungs reveal coarse bilateral rhonchi, and crackles. No wheezes. Breath sounds equal bilaterally. Abdomen soft bowel sounds are heard. No masses or tenderness. Extremities are intact. No cyanosis clubbing or edema. Skin is without rash or lesion. Neurologic examination could not be assessed as the patient's currently sedated. - Labs CBC & Chem 7: 06/28/20 04:45 06/28/20 04:45 Labs: Abnormal Lab Results - Last 24 Hours (Table) 06/27/20 06/27/20 06/27/20 Range/Units 11:27 16:05 17:17 RBC (3.80-5.40) m/uL Hgb (11.4-16.0) gm/dL Hct (34.0-46.0) % RDW (11.5-15.5) % Lymphocytes # (1.0-4.8) k/uL D-Dimer (<0.60) mg/L FEU ABG pH (7.35-7.45) ABG pO2 (83-108) mmHg ABG HCO3 (21-25) mmol/L ABG Total CO2 (19-24) mmol/L ABG O2 Saturation (94-97) % Carbon Dioxide (22-30) mmol/L BUN (7-17) mg/dL Creatinine (0.52-1.04) mg/dL POC Glucose (mg/dL) 151 H 190 H 190 H (75-99) mg/dL ALT (4-34) U/L Lactate Dehydrogenase (313-618) U/L C-Reactive Protein (<1.0) mg/dL Total Protein (6.3-8.2) g/dL Albumin (3.5-5.0) g/dL 06/27/20 06/28/20 06/28/20 Range/Units 20:22 00:08 04:45 RBC 3.05 L (3.80-5.40) m/uL Hgb 9.4 L (11.4-16.0) gm/dL Hct 28.8 L (34.0-46.0) % RDW 15.7 H (11.5-15.5) % Lymphocytes # 0.4 L (1.0-4.8) k/uL D-Dimer (<0.60) mg/L FEU ABG pH (7.35-7.45) ABG pO2 (83-108) mmHg ABG HCO3 (21-25) mmol/L ABG Total CO2 (19-24) mmol/L ABG O2 Saturation (94-97) % Carbon Dioxide (22-30) mmol/L BUN (7-17) mg/dL Creatinine (0.52-1.04) mg/dL POC Glucose (mg/dL) 140 H 123 H (75-99) mg/dL ALT (4-34) U/L Lactate Dehydrogenase (313-618) U/L C-Reactive Protein (<1.0) mg/dL Total Protein (6.3-8.2) g/dL Albumin (3.5-5.0) g/dL 06/28/20 06/28/20 06/28/20 Range/Units 04:45 04:45 04:45 RBC (3.80-5.40) m/uL Hgb (11.4-16.0) gm/dL Hct (34.0-46.0) % RDW (11.5-15.5) % Lymphocytes # (1.0-4.8) k/uL D-Dimer 12.34 H (<0.60) mg/L FEU ABG pH (7.35-7.45) ABG pO2 (83-108) mmHg ABG HCO3 (21-25) mmol/L ABG Total CO2 (19-24) mmol/L ABG O2 Saturation (94-97) % Carbon Dioxide 31 H (22-30) mmol/L BUN 31 H (7-17) mg/dL Creatinine 0.48 L (0.52-1.04) mg/dL POC Glucose (mg/dL) 108 H (75-99) mg/dL ALT 35 H (4-34) U/L Lactate Dehydrogenase 1048 H (313-618) U/L C-Reactive Protein 7.4 H (<1.0) mg/dL Total Protein 5.3 L (6.3-8.2) g/dL Albumin 2.6 L (3.5-5.0) g/dL 06/28/20 06/28/20 Range/Units 05:22 07:35 RBC (3.80-5.40) m/uL Hgb (11.4-16.0) gm/dL Hct (34.0-46.0) % RDW (11.5-15.5) % Lymphocytes # (1.0-4.8) k/uL D-Dimer (<0.60) mg/L FEU ABG pH 7.48 H (7.35-7.45) ABG pO2 64 L (83-108) mmHg ABG HCO3 30 H (21-25) mmol/L ABG Total CO2 31 H (19-24) mmol/L ABG O2 Saturation 91.2 L (94-97) % Carbon Dioxide (22-30) mmol/L BUN (7-17) mg/dL Creatinine (0.52-1.04) mg/dL POC Glucose (mg/dL) 163 H (75-99) mg/dL ALT (4-34) U/L Lactate Dehydrogenase (313-618) U/L C-Reactive Protein (<1.0) mg/dL Total Protein (6.3-8.2) g/dL Albumin (3.5-5.0) g/dL Assessment and Plan Assessment: Acute hypoxemic respiratory failure secondary to COVID 19 pneumonitis/pneumonia, with intubation on June 18, and tracheostomy/PEG tube placement on June 25. New onset atrial fibrillation with RVR. Elevated inflammatory marker secondary to COVID infection. History of CVA and aphasia. History of essential hypertension. History of type 2 diabetes mellitus. History of hyperlipidemia. Status post right-sided mastectomy for breast cancer. Previous history of tobacco use. Hyperlipidemia. Plan: Plan dated 06/28/2020. In light of the recent article in the Journal of Critical Care, which compared Versed versus propofol for critically ill patient's in the intensive care unit, the patient's Versed will be discontinued in favor of propofol. In addition, we will attempt to get the patient off of fentanyl by using Dilaudid when necessar y. Additional recommendations and suggestions are forthcoming. Follow patient and make recommendations were appropriate. Overall prognosis remains guarded. She might be a candidate for long-term acute care, if we can get her off the propofol and fentanyl eventually. Time with Patient: Greater than 30
[2020-06-28 12:08] LABS: Glucose,Whole Blood 161 mg/dL (75-99)
--- NOTE | 2020-06-28 12:30 | P.PN ---
Subjective Progress Note Date: 06/28/20 CHIEF COMPLAINT: COVID-19 pneumonia HISTORY OF PRESENT ILLNESS: Patient remains in the ICU on mechanical ventilation. She is hospitalized for COVID-19 pneumonia with hypoxic respiratory failure. She is status post tracheostomy and PEG tube placement. She is tolerating tube feeds. Nursing staff is reporting drainage around the tracheostomy site. This has been sent for culture. Afebrile. WBC 8.2 albumin 2.6 PHYSICAL EXAM: VITAL SIGNS: Reviewed. GENERAL: Well-developed in no acute distress. HEENT: Head is atraumatic, normocephalic. Tracheostomy site with drainage ABDOMEN: Soft. Nondistended. Nontender. PEG tube site clean dry and intact NEUROLOGIC: Alert and oriented. Cranial nerves II through XII grossly intact. ASSESSMENT: 1. Acute hypoxic respiratory failure due to COVID-19 pneumonia. Status post tracheostomy placement 2. Severe protein calorie malnutrition status post PEG tube placement PLAN: -Continue ICU management -Continue supportive care -Continue to titrate PEG tube feedings Physician Physiatrist note has been reviewed by physician. Signing provider agrees with the documented findings, assessment, and plan of care. Objective - Vital Signs Vital signs: Vital Signs Temp 98.9 F 06/28/20 12:00 Pulse 96 06/28/20 12:00 Resp 33 H 06/28/20 12:00 BP 134/68 06/27/20 07:00 Pulse Ox 94 L 06/28/20 12:00 Intake & Output 06/27/20 06/28/20 06/28/20 18:59 06:59 18:59 Intake Total 048.226 7365.202 509.687 Output Total 770 710 390 Balance 186.850 300.202 119.687 Weight 89.9 kg Intake: IV 276 276 138 .9NS A line 36 36 18 0.9 240 240 120 Intake, IV Titration 180.850 164.202 11.687 Amount Midazolam HCl 200 mg In 80.85 90.3 Sodium Chloride 0.9% 160 ml @ 10 MG/HR 10 mls/hr IV .Q10H [facility] Rx#: [id number] fentaNYL (PF). 1,000 mcg 100.000 73.902 In Sodium Chloride 0.9% 80 ml @ Per Protocol IV . Q0M [facility] Rx#:[id number] propofoL 1,000 mg In 11.687 Empty Bag 1 bag @ Titrate IV .Q0M [facility] Rx#: [id number] Tube Feeding 330 430 300 Other 170 140 60 Output: Urine 770 710 390 Other: Voiding Method Indwelling Catheter Indwelling Catheter ABP, PAP, CO, CI - Last Documented Arterial Blood Pressure 104/36 - Labs CBC & Chem 7: 06/28/20 04:45 06/28/20 04:45 Labs: Abnormal Lab Results - Last 24 Hours (Table) 06/27/20 06/27/20 06/27/20 Range/Units 16:05 17:17 20:22 RBC (3.80-5.40) m/uL Hgb (11.4-16.0) gm/dL Hct (34.0-46.0) % RDW (11.5-15.5) % Lymphocytes # (1.0-4.8) k/uL D-Dimer (<0.60) mg/L FEU ABG pH (7.35-7.45) ABG pO2 (83-108) mmHg ABG HCO3 (21-25) mmol/L ABG Total CO2 (19-24) mmol/L ABG O2 Saturation (94-97) % Carbon Dioxide (22-30) mmol/L BUN (7-17) mg/dL Creatinine (0.52-1.04) mg/dL POC Glucose (mg/dL) 190 H 190 H 140 H (75-99) mg/dL ALT (4-34) U/L Lactate Dehydrogenase (313-618) U/L C-Reactive Protein (<1.0) mg/dL Total Protein (6.3-8.2) g/dL Albumin (3.5-5.0) g/dL 06/28/20 06/28/20 06/28/20 Range/Units 00:08 04:45 04:45 RBC 3.05 L (3.80-5.40) m/uL Hgb 9.4 L (11.4-16.0) gm/dL Hct 28.8 L (34.0-46.0) % RDW 15.7 H (11.5-15.5) % Lymphocytes # 0.4 L (1.0-4.8) k/uL D-Dimer 12.34 H (<0.60) mg/L FEU ABG pH (7.35-7.45) ABG pO2 (83-108) mmHg ABG HCO3 (21-25) mmol/L ABG Total CO2 (19-24) mmol/L ABG O2 Saturation (94-97) % Carbon Dioxide (22-30) mmol/L BUN (7-17) mg/dL Creatinine (0.52-1.04) mg/dL POC Glucose (mg/dL) 123 H (75-99) mg/dL ALT (4-34) U/L Lactate Dehydrogenase (313-618) U/L C-Reactive Protein (<1.0) mg/dL Total Protein (6.3-8.2) g/dL Albumin (3.5-5.0) g/dL 06/28/20 06/28/20 06/28/20 Range/Units 04:45 04:45 05:22 RBC (3.80-5.40) m/uL Hgb (11.4-16.0) gm/dL Hct (34.0-46.0) % RDW (11.5-15.5) % Lymphocytes # (1.0-4.8) k/uL D-Dimer (<0.60) mg/L FEU ABG pH 7.48 H (7.35-7.45) ABG pO2 64 L (83-108) mmHg ABG HCO3 30 H (21-25) mmol/L ABG Total CO2 31 H (19-24) mmol/L ABG O2 Saturation 91.2 L (94-97) % Carbon Dioxide 31 H (22-30) mmol/L BUN 31 H (7-17) mg/dL Creatinine 0.48 L (0.52-1.04) mg/dL POC Glucose (mg/dL) 108 H (75-99) mg/dL ALT 35 H (4-34) U/L Lactate Dehydrogenase 1048 H (313-618) U/L C-Reactive Protein 7.4 H (<1.0) mg/dL Total Protein 5.3 L (6.3-8.2) g/dL Albumin 2.6 L (3.5-5.0) g/dL 06/28/20 06/28/20 Range/Units 07:35 12:07 RBC (3.80-5.40) m/uL Hgb (11.4-16.0) gm/dL Hct (34.0-46.0) % RDW (11.5-15.5) % Lymphocytes # (1.0-4.8) k/uL D-Dimer (<0.60) mg/L FEU ABG pH (7.35-7.45) ABG pO2 (83-108) mmHg ABG HCO3 (21-25) mmol/L ABG Total CO2 (19-24) mmol/L ABG O2 Saturation (94-97) % Carbon Dioxide (22-30) mmol/L BUN (7-17) mg/dL Creatinine (0.52-1.04) mg/dL POC Glucose (mg/dL) 163 H 161 H (75-99) mg/dL ALT (4-34) U/L Lactate Dehydrogenase (313-618) U/L C-Reactive Protein (<1.0) mg/dL Total Protein (6.3-8.2) g/dL Albumin (3.5-5.0) g/dL
[2020-06-28 15:41] LABS: Glucose,Whole Blood 160 mg/dL (75-99)
[2020-06-28 20:12] LABS: Glucose,Whole Blood 127 mg/dL (75-99)
[2020-06-28] MEDS: ATORVASTATIN 10 MG TAB PO SCH (20:16)
[2020-06-28 23:43] LABS: Glucose,Whole Blood 97 mg/dL (75-99)
--- NOTE | 2020-06-28 23:49 | P.PN ---
Subjective Progress Note Date: 06/28/20 Principal diagnosis: Acute Hypoxic Respiratory Failure due to COVID -19 Pneumonia Ms. Killian is a 69-year-old female, who follows with Dr. Eubanks, with a past medical history of diabetes mellitus, hypertension, hyperlipidemia, osteoarthritis, obstructive sleep apnea, history of breast cancer with right mastectomy admitted for acute severe bilateral Covid 19 pneumonia. On 06/26/2020 -patient was seen and examined at bedside. She is currently in the ICU, intubated and mechanically ventilated. She is on assist control 28, FiO2 50%, with PEEP of 14. She continues to be on fentanyl and Versed. She is status post tracheostomy and PEG tube placement done on 06/25. Patient had a chest x-ray done this morning showing bibasilar infiltrates and ABGs done this morning showing pH 7.47, PO2 60, PCO2 44. Reviewing the vitals temperature of 97.8, heart rate 70s to 80s, blood pressure 100-110 by 40s to 50s. Review of systems could not be done as the patient is intubated and sedated. On 06/27/2020 patient was seen and examined at the bedside. She is in the ICU. Intubated and sedated with tracheostomy and PEG tube in place. No acute events reported by nursing staff overnight. ABGs done this morning showing pH of 7.48, PO2 62, PCO2 of 38. She is on fentanyl and Versed. Sedation holiday was tried, patient was agitated and so put back on sedation again. Chest x-ray done this morning showing bilateral interstitial airspace disease, which goes along with her diagnosis of COVID-19 pneumonia. Reviewing the vitals T-max 98.2, heart rate 80, respiratory rate, mechanically ventilated, blood pressure 1 10-1 20 /50s to 70s. Reviewing the labs white count of 7.8, hemoglobin 9.7, platelets 238. Sodium 140, potassium 3.5, chloride 110, bicarb 26, BUN 30, creatinine 0.42. Albumin 2.2. On 06/28/2020 - patient was seen and examined at the bedside. She is in the ICU. Intubated and sedated with tracheostomy and PEG tube in place. No acute events reported by nursing staff overnight. Blood gases show a PaO2 of 64, PaCO2 of 40, and pH of 7.47. She remains on a Versed drip and fentanyl drips. Labs include a white count 8.2, hemoglobin 9.4, hematocrit 28.8, and platelet count 240,000. D-dimer is 12.34. Sodium 140, potassium 4.1, chlorides 106, CO2 31, anion gap 3, BUN 31, creatinine 0.48. Chest x-ray shows bilateral diffuse infiltrates. Medication have been reviewed. Active Medications Acetaminophen (Acetaminophen Suppository 650 Mg Supp) 650 mg RECTAL Q4HR PRN Artificial Tears (Artificial Tears-Hypromellose Drops 15 Ml Btl) 2 drops BOTH EYES QID [facility] Ascorbic Acid (Ascorbic Acid 500 Mg Tab) 1,000 mg PO DAILY [facility] Atorvastatin Calcium (Atorvastatin 10 Mg Tab) 10 mg PO HS [facility]AN[facility] Chlorhexidine Gluconate (Chlorhexidine Gluconate 15 Ml Cup) 15 ml MUCOUS MEM BID [facility]AN[facility] Cholecalciferol (Cholecalciferol 25 Mcg (1000 Iu) Tablet) 25 mcg PO DAILY [facility] Dexamethasone Sodium Phosphate (Dexamethasone Sod Phosphate 10 Mg/Ml 1 Ml Vial) 6 mg IV DAILY [facility]ANITA Enoxaparin Sodium (Enoxaparin 40 Mg/0.4 Ml Syringe) 40 mg SQ BID SC Famotidine (Famotidine 20 Mg Tab) 20 mg PO Q12HR [facility] Hydromorphone HCl (Hydromorphone 1 Mg/Ml 1 Ml Syringe) 1 mg IVP Q4HR PRN Fentanyl Citrate 1,000 mcg/ (Sodium Chloride) 100 mls @ 0 mls/hr IV .Q0M [facility]; Protocol Propofol 1,000 mg/ IV Solution 100 mls @ 0 mls/hr IV .Q0M [facility]; Protocol Insulin Aspart (Insulin Aspart (Novolog) 100 Unit/Ml Vial) 0 unit SQ Q4H [facility]AN[facility]; Protocol Insulin Aspart (Insulin Aspart (Novolog) 100 Unit/Ml Vial) 10 unit SQ Q4H [facility] Insulin Detemir (Insulin Detemir (Levemir) 100 Unit/Ml Syr) 46 unit SQ DAILY@0700 [facility] Sertraline HCl (Sertraline 50 Mg Tab) 50 mg PO DAILY [facility] Zinc Sulfate (Zinc Sulfate 220 Mg Cap) 220 mg PO DAILY [facility] Objective - Vital Signs Vital signs: Vital Signs Temp 97.8 F 06/28/20 04:00 Pulse 95 06/28/20 07:00 Resp 28 H 06/28/20 07:00 BP 134/68 06/27/20 07:00 Pulse Ox 91 L 06/28/20 07:00 Intake & Output 06/27/20 06/28/20 06/28/20 18:59 06:59 18:59 Intake Total 967.750 8181.202 73 Output Total 770 710 40 Balance 186.850 300.202 33 Weight 89.9 kg Intake: IV 276 276 23 .9NS A line 36 36 3 0.9 240 240 20 Intake, IV Titration 180.850 164.202 Amount Midazolam HCl 200 mg In 80.85 90.3 Sodium Chloride 0.9% 160 ml @ 10 MG/HR 10 mls/hr IV .Q10H [facility] Rx#: [id number] fentaNYL (PF). 1,000 mcg 100.000 73.902 In Sodium Chloride 0.9% 80 ml @ Per Protocol IV . Q0M [facility] Rx#:[id number] Tube Feeding 330 430 50 Other 170 140 Output: Urine 770 710 40 Other: Voiding Method Indwelling Catheter Indwelling Catheter ABP, PAP, CO, CI - Last Documented Arterial Blood Pressure 121/49 - Exam PHYSICAL EXAM GENERAL EXAM: sedated, intubated, 69-year-old white female, intubated, mechanically ventilated, sedated. Status post tracheostomy and PEG tube placement on 06/25 Head: Atraumatic, normocephalic. Tracheostomy in place. HEENT: PERRLA, EOMI, nonicteric, no neck masses, no JVD, no stridor. CHEST: No chest wall deformity. Symmetrical expansion. LUNGS: Symmetrical chest expansion, crackles at the bases CVS: Regular rate and rhythm, normal S1 and S2, ABDOMEN: Soft, nontender. PEG tube is intact. EXTREMITIES: No clubbing,pitting edema in all 4 extremities, no cyanosis, 2+ pulses and upper and lower extremities. CENTRAL NERVOUS SYSTEM: Sedated, intubated so could not assess - Labs CBC & Chem 7: 06/28/20 04:45 06/28/20 04:45 Labs: Abnormal Lab Results - Last 24 Hours (Table) 06/27/20 06/27/20 06/27/20 Range/Units 16:05 17:17 20:22 RBC (3.80-5.40) m/uL Hgb (11.4-16.0) gm/dL Hct (34.0-46.0) % RDW (11.5-15.5) % Lymphocytes # (1.0-4.8) k/uL D-Dimer (<0.60) mg/L FEU ABG pH (7.35-7.45) ABG pO2 (83-108) mmHg ABG HCO3 (21-25) mmol/L ABG Total CO2 (19-24) mmol/L ABG O2 Saturation (94-97) % Carbon Dioxide (22-30) mmol/L BUN (7-17) mg/dL Creatinine (0.52-1.04) mg/dL POC Glucose (mg/dL) 190 H 190 H 140 H (75-99) mg/dL ALT (4-34) U/L Lactate Dehydrogenase (313-618) U/L C-Reactive Protein (<1.0) mg/dL Total Protein (6.3-8.2) g/dL Albumin (3.5-5.0) g/dL 06/28/20 06/28/20 06/28/20 Range/Units 00:08 04:45 04:45 RBC 3.05 L (3.80-5.40) m/uL Hgb 9.4 L (11.4-16.0) gm/dL Hct 28.8 L (34.0-46.0) % RDW 15.7 H (11.5-15.5) % Lymphocytes # 0.4 L (1.0-4.8) k/uL D-Dimer 12.34 H (<0.60) mg/L FEU ABG pH (7.35-7.45) ABG pO2 (83-108) mmHg ABG HCO3 (21-25) mmol/L ABG Total CO2 (19-24) mmol/L ABG O2 Saturation (94-97) % Carbon Dioxide (22-30) mmol/L BUN (7-17) mg/dL Creatinine (0.52-1.04) mg/dL POC Glucose (mg/dL) 123 H (75-99) mg/dL ALT (4-34) U/L Lactate Dehydrogenase (313-618) U/L C-Reactive Protein (<1.0) mg/dL Total Protein (6.3-8.2) g/dL Albumin (3.5-5.0) g/dL 06/28/20 06/28/20 06/28/20 Range/Units 04:45 04:45 05:22 RBC (3.80-5.40) m/uL Hgb (11.4-16.0) gm/dL Hct (34.0-46.0) % RDW (11.5-15.5) % Lymphocytes # (1.0-4.8) k/uL D-Dimer (<0.60) mg/L FEU ABG pH 7.48 H (7.35-7.45) ABG pO2 64 L (83-108) mmHg ABG HCO3 30 H (21-25) mmol/L ABG Total CO2 31 H (19-24) mmol/L ABG O2 Saturation 91.2 L (94-97) % Carbon Dioxide 31 H (22-30) mmol/L BUN 31 H (7-17) mg/dL Creatinine 0.48 L (0.52-1.04) mg/dL POC Glucose (mg/dL) 108 H (75-99) mg/dL ALT 35 H (4-34) U/L Lactate Dehydrogenase 1048 H (313-618) U/L C-Reactive Protein 7.4 H (<1.0) mg/dL Total Protein 5.3 L (6.3-8.2) g/dL Albumin 2.6 L (3.5-5.0) g/dL 06/28/20 Range/Units 07:35 RBC (3.80-5.40) m/uL Hgb (11.4-16.0) gm/dL Hct (34.0-46.0) % RDW (11.5-15.5) % Lymphocytes # (1.0-4.8) k/uL D-Dimer (<0.60) mg/L FEU ABG pH (7.35-7.45) ABG pO2 (83-108) mmHg ABG HCO3 (21-25) mmol/L ABG Total CO2 (19-24) mmol/L ABG O2 Saturation (94-97) % Carbon Dioxide (22-30) mmol/L BUN (7-17) mg/dL Creatinine (0.52-1.04) mg/dL POC Glucose (mg/dL) 163 H (75-99) mg/dL ALT (4-34) U/L Lactate Dehydrogenase (313-618) U/L C-Reactive Protein (<1.0) mg/dL Total Protein (6.3-8.2) g/dL Albumin (3.5-5.0) g/dL Assessment and Plan Assessment: ASSESSMENT Acute hypoxic respiratory failure secondary to COVID-19 pneumonia. New onset atrial fibrillation with RVR S/P Tracheostomy and PEG tube placement on 06/25/2020 Elevated inflammatory markers History of CVA and aphasia. Hypertension. Type 2 diabetes. Dyslipidemia. History of right-sided mastectomy for breast cancer. Former smoker. Dyslipidemia. PLAN: Patient was outside the window for BAM, patient received tociluzumab .S/P Tracheostomy and PEG tube placement on 06/25/2020. She was treated with amiodarone, heparin for A. fib and now on Lovenox .Continue with steroids, IV fluids, continue with vitamin C, vitamin D and zinc. Ventilator , weaning trail and sedation holiday as per ICU management. Tracheostomy and PEG tube care. She would be a candidate for LTAC. Over all prognosis is poor. Further recommendations to follow depending on the progress with the patient.
[2020-06-29] MEDS: HYDROmorphone 1 MG/ML 1 ML SYRINGE IVP PRN ×2 (00:08→10:34)
[2020-06-29 04:58] LABS: ABG Base Excess 5.4 mmol/L; ABG HCO3 28 mmol/L (21-25); ABG Oxygen Saturation 89.8 % (94-97); ABG PCO2 35 mmHg (35-45); ABG PH 7.52 (7.35-7.45); ABG TCO2 29 mmol/L (19-24); Allen Test Performed? Yes
[2020-06-29 05:16] LABS: ABG PO2 57 mmHg (83-108)
[2020-06-29 05:19] LABS: Basophils % (A) 0 %; Eosinophils # (A) 0.1 k/uL (0-0.7); Eosinophils % (A) 1 %; HCT 30.2 % (34.0-46.0); HGB 9.7 gm/dL (11.4-16.0); Hypochromasia Slight; Lymphocytes # (A) 0.3 k/uL (1.0-4.8); Lymphocytes % (A) 3 %; MCH 30.4 pg (25.0-35.0); MCHC 32.2 g/dL (31.0-37.0); MCV 94.5 fL (80.0-100.0); Mean Platelet Volume 8.2; Monocytes # (A) 0.3 k/uL (0-1.0); Monocytes % (A) 3 %; Neutrophils # (A) 9.3 k/uL (1.3-7.7); Neutrophils % (A) 93 %; Platelet Count 258 k/uL (150-450); RBC 3.19 m/uL (3.80-5.40); RDW 15.8 % (11.5-15.5)
[2020-06-29 05:30] LABS: ALT 33 U/L (4-34); AST 35 U/L (14-36); African American GFR (CKD) >90 (>60 ml/min/1.73 sqM); Albumin 2.4 g/dL (3.5-5.0); Alkaline Phosphatase 70 U/L (38-126); Anion Gap 5 mmol/L; Blood Urea Nitrogen 28 mg/dL (7-17); Calcium 9.3 mg/dL (8.4-10.2); Carbon Dioxide 28 mmol/L (22-30); Chloride 104 mmol/L (98-107); Glucose 111 mg/dL (74-99); LDH 952 U/L (313-618); Non-African American GFR(CKD) >90 (>60 ml/min/1.73 sqM); Potassium 3.9 mmol/L (3.5-5.1); Sodium 137 mmol/L (137-145); Total Bilirubin 0.5 mg/dL (0.2-1.3)
[2020-06-29] MEDS: INSULIN ASPART (NovoLOG) 100 UNIT/ML VIAL SQ SCH ×10 (05:42→20:41)
[2020-06-29 08:20] LABS: Glucose,Whole Blood 163 mg/dL (75-99)
[2020-06-29] MEDS: DEXAMETHASONE SOD PHOSPHATE 10 MG/ML 1 ML VIAL IV SCH (08:24)
[2020-06-29] MEDS: CHLORHEXIDINE GLUCONATE 15 ML CUP MUCOUS MEM SCH ×2 (08:25→20:41)
[2020-06-29] MEDS: ENOXAPARIN 40 MG/0.4 ML SYRINGE SQ SCH ×2 (08:25→20:41)
[2020-06-29] MEDS: SERTRALINE 50 MG TAB PO SCH (08:25)
[2020-06-29] MEDS: INSULIN DETEMIR (LEVEMIR) 100 UNIT/ML SYR SQ SCH (08:25)
[2020-06-29] MEDS: ASCORBIC ACID 500 MG TAB PO SCH (08:26)
[2020-06-29] MEDS: FAMOTIDINE 20 MG TAB PO SCH ×2 (08:26→20:41)
[2020-06-29] MEDS: CHOLECALCIFEROL 25 MCG (1000 IU) TABLET PO SCH (08:26)
[2020-06-29] MEDS: ZINC SULFATE 220 MG CAP PO SCH (08:26)
--- NOTE | 2020-06-29 10:12 | P.PN ---
Subjective Progress Note Date: 06/29/20 Principal diagnosis: COVID 19 pneumonia. Patient was reevaluated today on 06/23/2020, remains in the ICU, intubated and mechanically ventilated. She is on assist control rate of 28 tidal volume is 400 FiO2 50% PEEP remains 15. I did cut down the PEEP to 12. ABG showed a pO2 of 61 pCO2 of 46 pH of 7.44. Patient remains on Versed and fentanyl, not requiring any Nimbex, Versed is 10 mg per hour, and fentanyl at 1.5 mcg/kg/h. She is on enteral feeding using vital hP and 59/59. Patient is hemodynamically stable, she is in sinus rhythm, peak airway pressure is 28, and static pressure is 17. Chest x-ray continues to show bilateral of disease consistent with COVID-19 pneumonia. Basic metabolic profile is normal renal profile is normal LDH is 1628. C-reactive protein is 2.7 BC is relatively normal. Spinal fluid cultures have been negative from a week ago Patient was reevaluated today on 06/24/2020, remains in the ICU, intubated and mechanically ventilated. He is on assist control rate of 28 tidal volumes 400 FiO2 50% PEEP of 14. ABG showed a pO2 of 58 pCO2 of 52 pH of 7.40. Patient is on fentanyl at 1.5 and Versed at 11 mg per hour. My plan is to give the patient a sedation holiday. And assess mental status. Although the patient remains on relatively high PEEP, she is not ready to wean, and I would recommend tracheostomy and PEG tube placement on this patient. Remains on vital Hp at 59 mL per hour. Surgical consultation for tracheostomy and PEG tube was initiated. WBC count is 9.9 hemoglobin is 10.4. Electrolytes are normal. Renal profile is normal. LDH remains high at 1572. C-reactive protein is 4.0. Both seem to be trending down. And showing improvement. Chest x-ray continues to show bilateral pneumonia. Not much of a change management director the last few days. Patient was reevaluated today on 06/25/2020, remains in the ICU, intubated and me chanically ventilated. She is now on assist control rate of 28 tidal volume 400 FiO2 50% and PEEP at 14. Her ABG showed a pO2 of 61 pCO2 of 53 pH of 7.40. Hence no changes were made in the ventilator settings. The patient remains on Versed at 11 mg per hour, fentanyl at 1.5 mcg/kg/h, and IV fluid at KVO. Chest x-ray continues to show basically bibasilar infiltrates. Patient is scheduled to have PEG and tracheostomy tube placement today. Her enteral feeding is presently on hold. CBC is relatively normal. Electrolytes and renal profile are relatively normal. LDH is 1510, C-reactive protein is 7.5. Reevaluated today on 06/26/2020, patient remains in the ICU, intubated and mechanically ventilated. She is status post tracheostomy and PEG tube placement done yesterday on 06/25. Vent settings are assist control rate 28 tidal volume is 400 FiO2 50% PEEP of 14 ABG showed a pO2 of 60 pCO2 of 44 pH of 7.47. Patient remains on Versed and on fentanyl. My plan is to discontinue both tod ay, assess the patient's mental status off sedation, and decide whether she needs to be on that much sedation or not after waking up with the patient and assessing mental status. Tube feeds remain on hold at present because the patient had a PEG tube placed yesterday. She will be restarted back on vital hp at 59 mL per hour. Again the patient will receive today at least a brief sedation holiday. Patient is hemodynamically stable, chest x-ray continues to show minimal bibasilar infiltrates, consistent with COVID-19 pneumonia. Improved compared to her baseline. CBC is normal. Basic metabolic profile is normal. D-dimer is 29.03 LDH is 1368 C-reactive protein is 7.7. Patient was on Lovenox at 40 mg subcu twice a day, and I will go ahead and place her back on Lovenox, may eventually restart her back on Xarelto and discontinue Lovenox. Patient was reevaluated today on 06/27/2020, remains in the ICU, intubated and mechanically ventilated. Sedated but not requiring any paralytics. Patient is on assist control rate of 28 tidal volume is 400 FiO2 50% and PEEP of 14. Her ABG showed a pO2 of 62 pCO2 of 38 pH of 7.48. Patient is receiving vital Hb at 30 mL per hour. She is on fentanyl at 1 mcg/kg/m, she is also on Versed at 11 milligrams per hour. Her IV fluid is at KVO. And will increase the IV fluid today a bit. Attempts have been made over the last few days to cut down on sedation, however the patient gets extremely agitated, no appropriate responses have been noted on lower amounts of sedation. And will give the patient today another trial of lowering sedation and assessment of mental status. Previous attempts have failed in the last few days. But we will continue to try sedation holidays on a daily basis. At least the patient is not requiring any paralytics . Chest x-ray continues to show by basilar infiltrates. Not significantly changed over the last few days. LDH today is 1037 C-reactive protein is 7.0. Steadily improving considering the patient had LDH in the range of 3400 in the last few days ABC today is relatively normal hemoglobin is 9.7. Basic metabolic profile is normal with relatively normal renal profile. Progress note dated 06/28/2020. The patient was admitted on June 12. The patient was intubated on June 18. The patient underwent tracheostomy and PEG tube placement on June 25. She was diagnosed with COVID 19 pneumonia with hypoxemic respiratory failure. The patient is again seen in the intensive care unit room 254. She remains on the mechanical ventilator, on the volume assist control mode, rate 28, tidal volume 400, FiO2 50%, and PEEP of 14. Blood gases show a PaO2 of 64, PaCO2 of 40, and pH of 7.47. She remains on a Versed drip at 9 mg an hour, fentanyl drip at 1 mcg/kg/h, saline at 20 mL an hour, and vital high protein at 59 mL an hour, which is goal. We will DC the Versed and get the patient on propofol. We will attempt to get the patient off the fentanyl drip by using Dilaudid when necessary. Labs include a white count 8.2, hemoglobin 9.4, hematocrit 28.8, and platelet count 240,000. D-dimer is 12.34. Sodium 140, potassium 4.1, chlorides 106, CO2 31, anion gap 3, BUN 31, creatinine 0.48. Chest x-ray shows bilateral diffuse infiltrates. Tracheostomy tube is noted. Progress note dated 06/29/2020. This patient was admitted on June 12, and was intubated on June 18. The patient underwent tracheostomy and PEG tube placement on June 25. She was diagnosed with acute hypoxemic respiratory failure secondary to coronavirus pneumonia. Currently, the patient remains in the intensive care unit. She is in room 254. She is again seen today. She remains on the ventilator, volume assist control mode, rate 28, tidal volume 400, FiO2 50%, and PEEP of 14. Blood gases show pO2 of 57, pCO2 of 34, pH is 7.52. The patient remains on propofol at 70 mcg/kg/m, saline at 10 mL an hour, and vital high protein at goal, which is 40 mL an hour. Today, we will do a daily interruption of sedation. White count 10, hemoglobin 9.7, hematocrit 30.2, platelet count 2 58,000. D-dimer is 10.49. Sodium 137, potassium 3.9, chlorides 104, CO2 28, anion gap 5, BUN 28, creatinine 0.54. LDH is 952, C-reactive protein is 9. No chest x-ray today. Objective - Vital Signs Vital signs: Vital Signs Temp 99.5 F 06/29/20 08:00 Pulse 109 H 06/29/20 09:00 Resp 30 H 06/29/20 09:00 BP 134/68 06/28/20 19:00 Pulse Ox 93 L 06/29/20 09:00 Intake & Output 06/28/20 06/29/20 06/29/20 18:59 06:59 18:59 Intake Total 1182.067 932.625 322.776 Output Total 750 730 175 Balance 432.067 202.625 147.776 Weight 89.9 kg 89.9 kg Intake: IV 299 253 69 .9NS A line 39 33 9 0.9 260 220 60 Intake, IV Titration 175.067 149.625 103.776 Amount propofoL 1,000 mg In 175.067 149.625 103.776 Empty Bag 1 bag @ Titrate IV .Q0M [facility] Rx#: [id number] Tube Feeding 618 440 120 Other 90 90 30 Output: Urine 750 730 175 Other: Voiding Method Indwelling Catheter Indwelling Catheter Indwelling Catheter ABP, PAP, CO, CI - Last Documented Arterial Blood Pressure 161/66 - Exam No acute distress, sedated, with a midline tracheostomy tube. Saturations are 93%. HEENT examination is grossly unremarkable. Neck supple. Full range of motion. No adenopathy thyromegaly or neck vein distention. Cardiovascular examination reveals regular rhythm rate. S1-S2 normal. No S3 or S4. No discernible murmur noted. Heart rate is 109 bpm. Heart sounds are distant. Lungs reveal coarse bilateral rhonchi, and crackles. No wheezes. Breath sounds equal bilaterally. Breath sounds are unchanged. Abdomen soft bowel sounds are heard. No masses or tenderness. Extremities are intact. No cyanosis clubbing or edema. Skin is without rash or lesion. Neurologic examination could not be assessed as the patient's currently sedated. - Labs CBC & Chem 7: 06/29/20 04:32 06/29/20 04:32 Labs: Abnormal Lab Results - Last 24 Hours (Table) 06/28/20 06/28/20 06/28/20 Range/Units 12:07 15:30 20:10 RBC (3.80-5.40) m/uL Hgb (11.4-16.0) gm/dL Hct (34.0-46.0) % RDW (11.5-15.5) % Neutrophils # (1.3-7.7) k/uL Lymphocytes # (1.0-4.8) k/uL D-Dimer (<0.60) mg/L FEU ABG pH (7.35-7.45) ABG pO2 (83-108) mmHg ABG HCO3 (21-25) mmol/L ABG Total CO2 (19-24) mmol/L ABG O2 Saturation (94-97) % BUN (7-17) mg/dL Glucose (74-99) mg/dL POC Glucose (mg/dL) 161 H 160 H 127 H (75-99) mg/dL Lactate Dehydrogenase (313-618) U/L C-Reactive Protein (<1.0) mg/dL Total Protein (6.3-8.2) g/dL Albumin (3.5-5.0) g/dL 06/29/20 06/29/20 06/29/20 Range/Units 04:32 04:32 04:32 RBC 3.19 L (3.80-5.40) m/uL Hgb 9.7 L (11.4-16.0) gm/dL Hct 30.2 L (34.0-46.0) % RDW 15.8 H (11.5-15.5) % Neutrophils # 9.3 H (1.3-7.7) k/uL Lymphocytes # 0.3 L (1.0-4.8) k/uL D-Dimer 10.49 H (<0.60) mg/L FEU ABG pH (7.35-7.45) ABG pO2 (83-108) mmHg ABG HCO3 (21-25) mmol/L ABG Total CO2 (19-24) mmol/L ABG O2 Saturation (94-97) % BUN 28 H (7-17) mg/dL Glucose 111 H (74-99) mg/dL POC Glucose (mg/dL) (75-99) mg/dL Lactate Dehydrogenase 952 H (313-618) U/L C-Reactive Protein 9.0 H (<1.0) mg/dL Total Protein 5.0 L (6.3-8.2) g/dL Albumin 2.4 L (3.5-5.0) g/dL 06/29/20 06/29/20 Range/Units 04:52 08:09 RBC (3.80-5.40) m/uL Hgb (11.4-16.0) gm/dL Hct (34.0-46.0) % RDW (11.5-15.5) % Neutrophils # (1.3-7.7) k/uL Lymphocytes # (1.0-4.8) k/uL D-Dimer (<0.60) mg/L FEU ABG pH 7.52 H (7.35-7.45) ABG pO2 57 L* (83-108) mmHg ABG HCO3 28 H (21-25) mmol/L ABG Total CO2 29 H (19-24) mmol/L ABG O2 Saturation 89.8 L (94-97) % BUN (7-17) mg/dL Glucose (74-99) mg/dL POC Glucose (mg/dL) 163 H (75-99) mg/dL Lactate Dehydrogenase (313-618) U/L C-Reactive Protein (<1.0) mg/dL Total Protein (6.3-8.2) g/dL Albumin (3.5-5.0) g/dL Microbiology - Last 24 Hours (Table) 06/28/20 15:30 Gram Stain - Preliminary Neck Wound Culture - Preliminary 06/28/20 15:30 Anaerobic Culture - Preliminary Neck Assessment and Plan Assessment: Acute hypoxemic respiratory failure secondary to COVID 19 pneumonitis/pneumonia, with intubation on June 18, and tracheostomy/PEG tube placement on June 25. New onset atrial fibrillation with RVR. Elevated inflammatory marker secondary to COVID infection. History of CVA and aphasia. History of essential hypertension. History of type 2 diabetes mellitus. History of hyperlipidemia. Status post right-sided mastectomy for breast cancer. Previous history of tobacco use. Hyperlipidemia. Plan: Plan dated 06/28/2020. In light of the recent article in the Journal of Critical Care, which compared Versed versus propofol for critically ill patient's in the intensive care unit, the patient's Versed will be discontinued in favor of propofol. In addition, we will attempt to get the patient off of fentanyl by using Dilaudid when necessary. Additional recommendations and suggestions are forthcoming. Follow patient and make recommendations were appropriate. Overall prognosis remains guarded. She might be a candidate for long-term acute care, if we can get her off the propofol and fentanyl eventually. Plan dated 06/29/2020. The patient's Versed was discontinued yesterday, in favor of propofol. We will attempt to wean that today. In addition, the patient will have a daily interruption of sedation today. The patient would be a great candidate for a long-term acute care facility, once we get her off the sedative. We will continue to follow her very closely. She is to get Dilaudid when necessary. Additional recommendations and suggestions are forthcoming. Prognosis is guarded. We will continue to follow along, and make recommendations where appropriate. Time with Patient: Greater than 30
[2020-06-29 11:45] LABS: Glucose,Whole Blood 120 mg/dL (75-99)
--- NOTE | 2020-06-29 12:23 | P.CONS ---
History of Present Illness - Reason for Consult Consult date: 06/29/20 Wound care - History of Present Illness Is a 69-year-old patient with a stage II pressure ulcer that is hospital- acquired been seen by the wound care center in ICU. The ulceration started approximately 1 week ago. At this time a border foam dressing is applied. Ulceration is odiferous with serosanguineous drainage, measuring approximately 3 x 2.5 x 0.1 cm. periWound shows maceration and excoriation. The wound edges are not attached to the wound base. This is a stage II pressure ulcer. Patient's past medical history significant for diabetes, hyperlipidemia, hypertension, sleep apnea, right breast cancer with mastectomy and chemotherapy. Neuropathy to bilateral lower legs. Review of systems: Unable to obtain due to intubation Physical exam: General Appearance: Alert, cooperative, no distress, appears stated age. Skin: See HPI all other Skin color, texture, tugor normal, no rashes or lesions. Neurologic: Alert oriented x3 Assessment: 1. Stage II pressure ulcer with fatty layer exposure sacrum 2. Diabetes with skin ulcer Plan: 1. Apply honey alginate, saline moistened gauze, sacrum border foam. Change Sunday. Turn patient every 2 hours. Thank you for the consultation any questions contact the wound care center DNP note has been reviewed and discussed with Dr. Hutchinson and the impression and plan of care has been directed as dictated. Past Medical History Past Medical History: Cancer, Diabetes Mellitus, Hyperlipidemia, Hypertension, Osteoarthritis (OA), Sleep Apnea/CPAP/BIPAP Additional Past Medical History / Comment(s): Pt tested covid + 06/07/20 at [facility] ER. Other hx: R breast cancer with mastectomy/chemo, NIDDM type II, neuropathy bilateral legs, BANDAR with Cpap, UTIs and polynephritis. History of Any Multi-Drug Resistant Organisms: None Reported Past Surgical History: Breast Surgery, Tubal Ligation Additional Past Surgical History / Comment(s): right mastectomy, bilateral cataract removals/lens implants. Past Anesthesia/Blood Transfusion Reactions: No Reported Reaction Smoking Status: Former smoker, Light tobacco smoker - Past Family History Mother Family Medical History: Respiratory Disorder Additional Family Medical History / Comment(s): Mother had lung problems and had heart valve surgery. Father Family Medical History: Cancer Additional Family Medical History / Comment(s): Father of stomach cancer. Medications and Allergies Home Medications Medication Instructions Recorded Confirmed Type Ascorbic Acid [Vitamin C] 1,000 mg PO DAILY 03/23/20 06/12/20 History Cholecalciferol [Vitamin D3 (25 25 mcg PO DAILY 03/23/20 06/12/20 History Mcg = 1000 Iu)] Cinnamon Bark [Cinnamon] 500 mg PO DAILY 03/23/20 06/12/20 History Gabapentin 300 mg PO DAILY@1200 03/23/20 06/12/20 History Gabapentin 600 mg PO BID 03/23/20 06/12/20 History Garlic 1 tab PO DAILY 03/23/20 06/12/20 History Glimepiride [Amaryl] 1.5 mg PO HS 03/23/20 06/12/20 History Glimepiride [Amaryl] 2 mg PO DAILY 03/23/20 06/12/20 History Lisinopril-Hctz 20-25 mg 1 tab PO DAILY 03/23/20 06/12/20 History [Zestoretic 20-25] Lovastatin [Mevacor] 20 mg PO HS 03/23/20 06/12/20 History [place]-3 Acid Ethyl Esters [Lovaza] 1 gm PO BID 03/23/20 06/12/20 History Sertraline [Zoloft] 50 mg PO DAILY 03/23/20 06/12/20 History Vitamin A 120 Mcg 120 mcg PO DAILY 03/23/20 06/12/20 History amLODIPine [Norvasc] 5 mg PO BID 03/23/20 06/12/20 History metFORMIN HCL ER [Glucophage Xr] 750 mg PO DAILY 03/23/20 06/12/20 History Coconut Oil 1 cap PO DAILY 04/14/20 06/12/20 History Cranberry Fruit Extract [Cranberry] 500 mg PO DAILY 04/14/20 06/12/20 History Lysine HCl [l-Lysine] 1,000 mg PO DAILY 04/14/20 06/12/20 History Tart Doll Extract 1 cap PO DAILY 04/14/20 06/12/20 History Turmeric/Turmeric Root Extract 1 cap PO DAILY 04/14/20 06/12/20 History [Turmeric 450-50 mg Capsule] Acetaminophen Tab [Tylenol Tab] 1,000 mg PO Q6H PRN 06/12/20 06/12/20 History Famotidine 20 mg PO BID PRN 06/12/20 06/12/20 History Allergies Allergy/AdvReac Type Severity Reaction Status Date / Time amoxicillin Allergy Unknown Verified 06/12/20 16:06 Penicillins Allergy Unknown Verified 06/12/20 16:06 phenytoin [From Dilantin] Allergy Unknown Verified 06/12/20 16:06 Sulfa (Sulfonamide Allergy Unknown Verified 06/12/20 16:06 Antibiotics) Physical Exam Vitals: Vital Signs Temp Pulse Resp BP Pulse Ox 06/29/20 10:00 101 H 41 H 83 L 06/29/20 09:00 109 H 30 H 93 L 06/29/20 08:00 99.5 F 87 35 H 91 L 06/29/20 06:00 94 38 H 92 L 06/29/20 05:00 98 43 H 92 L 06/29/20 04:00 99.4 F 102 H 38 H 93 L 06/29/20 03:00 106 H 41 H 92 L 06/29/20 02:00 111 H 36 H 88 L 06/29/20 01:00 104 H 32 H 95 06/29/20 00:00 99.2 F 105 H 37 H 94 L 06/28/20 23:10 104 H 36 H 93 L 06/28/20 23:00 106 H 37 H 93 L 06/28/20 22:00 109 H 38 H 89 L 06/28/20 21:00 110 H 38 H 90 L 06/28/20 20:00 98.8 F 95 36 H 93 L 06/28/20 19:00 78 36 H 134/68 93 L 06/28/20 18:00 77 35 H 134/68 92 L 06/28/20 17:00 88 37 H 92 L 06/28/20 16:00 99.1 F 96 33 H 95 06/28/20 15:00 96 33 H 92 L 06/28/20 14:00 104 H 30 H 91 L 06/28/20 13:00 108 H 34 H 91 L Intake and Output 06/28/20 06/29/20 06/29/20 22:59 06:59 14:59 Intake Total 664.000 713.625 322.776 Output Total 435 505 175 Balance 229.000 208.625 147.776 Intake: IV 184 184 69 .9NS A line 24 24 9 0.9 160 160 60 Intake, IV Titration 100.000 149.625 103.776 Amount propofoL 1,000 mg In 100.000 149.625 103.776 Empty Bag 1 bag @ Titrate IV .Q0M [facility] Rx#: [id number] Tube Feeding 320 320 120 Other 60 60 30 Output: Urine 435 505 175 Other: Voiding Method Indwelling Catheter Indwelling Catheter Indwelling Catheter Weight 89.9 kg ABP, PAP, CO, CI - Last 8 Hours Arterial Blood Pressure 101/50 Arterial Blood Pressure 161/66 Arterial Blood Pressure 88/46 Arterial Blood Pressure 86/46 Arterial Blood Pressure 92/48 Results CBC & Chem 7: 06/29/20 04:32 06/29/20 04:32 Labs: Abnormal Lab Results - Last 24 Hours (Table) 06/28/20 06/28/20 06/29/20 Range/Units 15:30 20:10 04:32 RBC 3.19 L (3.80-5.40) m/uL Hgb 9.7 L (11.4-16.0) gm/dL Hct 30.2 L (34.0-46.0) % RDW 15.8 H (11.5-15.5) % Neutrophils # 9.3 H (1.3-7.7) k/uL Lymphocytes # 0.3 L (1.0-4.8) k/uL D-Dimer (<0.60) mg/L FEU ABG pH (7.35-7.45) ABG pO2 (83-108) mmHg ABG HCO3 (21-25) mmol/L ABG Total CO2 (19-24) mmol/L ABG O2 Saturation (94-97) % BUN (7-17) mg/dL Glucose (74-99) mg/dL POC Glucose (mg/dL) 160 H 127 H (75-99) mg/dL Lactate Dehydrogenase (313-618) U/L C-Reactive Protein (<1.0) mg/dL Total Protein (6.3-8.2) g/dL Albumin (3.5-5.0) g/dL 06/29/20 06/29/20 06/29/20 Range/Units 04:32 04:32 04:52 RBC (3.80-5.40) m/uL Hgb (11.4-16.0) gm/dL Hct (34.0-46.0) % RDW (11.5-15.5) % Neutrophils # (1.3-7.7) k/uL Lymphocytes # (1.0-4.8) k/uL D-Dimer 10.49 H (<0.60) mg/L FEU ABG pH 7.52 H (7.35-7.45) ABG pO2 57 L* (83-108) mmHg ABG HCO3 28 H (21-25) mmol/L ABG Total CO2 29 H (19-24) mmol/L ABG O2 Saturation 89.8 L (94-97) % BUN 28 H (7-17) mg/dL Glucose 111 H (74-99) mg/dL POC Glucose (mg/dL) (75-99) mg/dL Lactate Dehydrogenase 952 H (313-618) U/L C-Reactive Protein 9.0 H (<1.0) mg/dL Total Protein 5.0 L (6.3-8.2) g/dL Albumin 2.4 L (3.5-5.0) g/dL 06/29/20 06/29/20 Range/Units 08:09 11:44 RBC (3.80-5.40) m/uL Hgb (11.4-16.0) gm/dL Hct (34.0-46.0) % RDW (11.5-15.5) % Neutrophils # (1.3-7.7) k/uL Lymphocytes # (1.0-4.8) k/uL D-Dimer (<0.60) mg/L FEU ABG pH (7.35-7.45) ABG pO2 (83-108) mmHg ABG HCO3 (21-25) mmol/L ABG Total CO2 (19-24) mmol/L ABG O2 Saturation (94-97) % BUN (7-17) mg/dL Glucose (74-99) mg/dL POC Glucose (mg/dL) 163 H 120 H (75-99) mg/dL Lactate Dehydrogenase (313-618) U/L C-Reactive Protein (<1.0) mg/dL Total Protein (6.3-8.2) g/dL Albumin (3.5-5.0) g/dL Microbiology - Last 24 Hours (Table) 06/28/20 15:30 Gram Stain - Preliminary Neck Wound Culture - Preliminary 06/28/20 15:30 Anaerobic Culture - Preliminary Neck Assessment and Plan (1) Diabetes with skin ulcer Current Visit: Yes Status: Acute Code(s): E11.622 - TYPE 2 DIABETES MELLITUS WITH OTHER SKIN ULCER; L98.499 - NON-PRESSURE CHRONIC ULCER OF SKIN OF SITES W UNSP SEVERITY SNOMED Code(s): 55669427 (2) Pressure injury of sacral region, stage 2 Current Visit: Yes Status: Acute Code(s): L89.152 - PRESSURE ULCER OF SACRAL REGION, STAGE 2 SNOMED Code(s): 531579724
--- NOTE | 2020-06-29 13:08 | P.PN ---
Subjective Progress Note Date: 06/29/20 CHIEF COMPLAINT: COVID-19 pneumonia HISTORY OF PRESENT ILLNESS: Patient remains in the ICU on mechanical ventilation. She is hospitalized for COVID-19 pneumonia with hypoxic respiratory failure. She is status post tracheostomy and PEG tube placement. She is tolerating tube feeds. Patient had drainage from the tracheostomy site. Cultures are pending. Afebrile. WBC 10 patient has a sacral wound and was evaluated by wound care service PHYSICAL EXAM: VITAL SIGNS: Reviewed. GENERAL: Well-developed in no acute distress. HEENT: Head is atraumatic, normocephalic. Tracheostomy site with drainage ABDOMEN: Soft. Nondistended. Nontender. PEG tube site clean dry and intact NEUROLOGIC: Intubated and sedated ASSESSMENT: 1. Acute hypoxic respiratory failure due to COVID-19 pneumonia. Status post tracheostomy placement 2. Severe protein calorie malnutrition status post PEG tube placement PLAN: -Continue ICU management -Continue supportive care -Continue to titrate PEG tube feedings Physician Weigh Machine Operator note has been reviewed by physician. Signing provider agrees with the documented findings, assessment, and plan of care. Objective - Vital Signs Vital signs: Vital Signs Temp 99.5 F 06/29/20 08:00 Pulse 101 H 06/29/20 10:00 Resp 41 H 06/29/20 10:00 BP 134/68 06/28/20 19:00 Pulse Ox 83 L 06/29/20 10:00 Intake & Output 06/28/20 06/29/20 06/29/20 18:59 06:59 18:59 Intake Total 1182.067 932.625 322.776 Output Total 750 730 175 Balance 432.067 202.625 147.776 Weight 89.9 kg 89.9 kg Intake: IV 299 253 69 .9NS A line 39 33 9 0.9 260 220 60 Intake, IV Titration 175.067 149.625 103.776 Amount propofoL 1,000 mg In 175.067 149.625 103.776 Empty Bag 1 bag @ Titrate IV .Q0M [facility] Rx#: [id number] Tube Feeding 618 440 120 Other 90 90 30 Output: Urine 750 730 175 Other: Voiding Method Indwelling Catheter Indwelling Catheter Indwelling Catheter ABP, PAP, CO, CI - Last Documented Arterial Blood Pressure 101/50 - Labs CBC & Chem 7: 06/29/20 04:32 04/27/21 04:32 Labs: Abnormal Lab Results - Last 24 Hours (Table) 06/28/20 06/28/20 06/29/20 Range/Units 15:30 20:10 04:32 RBC 3.19 L (3.80-5.40) m/uL Hgb 9.7 L (11.4-16.0) gm/dL Hct 30.2 L (34.0-46.0) % RDW 15.8 H (11.5-15.5) % Neutrophils # 9.3 H (1.3-7.7) k/uL Lymphocytes # 0.3 L (1.0-4.8) k/uL D-Dimer (<0.60) mg/L FEU ABG pH (7.35-7.45) ABG pO2 (83-108) mmHg ABG HCO3 (21-25) mmol/L ABG Total CO2 (19-24) mmol/L ABG O2 Saturation (94-97) % BUN (7-17) mg/dL Glucose (74-99) mg/dL POC Glucose (mg/dL) 160 H 127 H (75-99) mg/dL Lactate Dehydrogenase (313-618) U/L C-Reactive Protein (<1.0) mg/dL Total Protein (6.3-8.2) g/dL Albumin (3.5-5.0) g/dL 06/29/20 06/29/20 06/29/20 Range/Units 04:32 04:32 04:52 RBC (3.80-5.40) m/uL Hgb (11.4-16.0) gm/dL Hct (34.0-46.0) % RDW (11.5-15.5) % Neutrophils # (1.3-7.7) k/uL Lymphocytes # (1.0-4.8) k/uL D-Dimer 10.49 H (<0.60) mg/L FEU ABG pH 7.52 H (7.35-7.45) ABG pO2 57 L* (83-108) mmHg ABG HCO3 28 H (21-25) mmol/L ABG Total CO2 29 H (19-24) mmol/L ABG O2 Saturation 89.8 L (94-97) % BUN 28 H (7-17) mg/dL Glucose 111 H (74-99) mg/dL POC Glucose (mg/dL) (75-99) mg/dL Lactate Dehydrogenase 952 H (313-618) U/L C-Reactive Protein 9.0 H (<1.0) mg/dL Total Protein 5.0 L (6.3-8.2) g/dL Albumin 2.4 L (3.5-5.0) g/dL 06/29/20 06/29/20 Range/Units 08:09 11:44 RBC (3.80-5.40) m/uL Hgb (11.4-16.0) gm/dL Hct (34.0-46.0) % RDW (11.5-15.5) % Neutrophils # (1.3-7.7) k/uL Lymphocytes # (1.0-4.8) k/uL D-Dimer (<0.60) mg/L FEU ABG pH (7.35-7.45) ABG pO2 (83-108) mmHg ABG HCO3 (21-25) mmol/L ABG Total CO2 (19-24) mmol/L ABG O2 Saturation (94-97) % BUN (7-17) mg/dL Glucose (74-99) mg/dL POC Glucose (mg/dL) 163 H 120 H (75-99) mg/dL Lactate Dehydrogenase (313-618) U/L C-Reactive Protein (<1.0) mg/dL Total Protein (6.3-8.2) g/dL Albumin (3.5-5.0) g/dL Microbiology - Last 24 Hours (Table) 06/28/20 15:30 Gram Stain - Preliminary Neck Wound Culture - Preliminary 06/28/20 15:30 Anaerobic Culture - Preliminary Neck
--- NOTE | 2020-06-29 16:17 | P.PN ---
Subjective Acute Hypoxic Respiratory Failure due to COVID -19 Pneumonia Ms. Killian is a 69-year-old female, who follows with Dr. Eubanks, with a past medical history of diabetes mellitus, hypertension, hyperlipidemia, osteoarthritis, obstructive sleep apnea, history of breast cancer with right mastectomy admitted for acute severe bilateral Covid 19 pneumonia. On 06/26/2020 -patient was seen and examined at bedside. She is currently in the ICU, intubated and mechanically ventilated. She is on assist control 28, FiO2 50%, with PEEP of 14. She continues to be on fentanyl and Versed. She is status post tracheostomy and PEG tube placement done on 06/25. Patient had a chest x-ray done this morning showing bibasilar infiltrates and ABGs done this morning showing pH 7.47, PO2 60, PCO2 44. Reviewing the vitals temperature of 97.8, heart rate 70s to 80s, blood pressure 100-110 by 40s to 50s. Review of systems could not be done as the patient is intubated and sedated. On 06/27/2020 patient was seen and examined at the bedside. She is in the ICU. Intubated and sedated with tracheostomy and PEG tube in place. No acute events reported by nursing staff overnight. ABGs done this morning showing pH of 7.48, PO2 62, PCO2 of 38. She is on fentanyl and Versed. Sedation holiday was tried, patient was agitated and so put back on sedation again. Chest x-ray done this morning showing bilateral interstitial airspace disease, which goes along with her diagnosis of COVID-19 pneumonia. Reviewing the vitals T-max 98.2, heart rate 80, respiratory rate, mechanically ventilated, blood pressure 1 10-1 20 /50s to 70s. Reviewing the labs white count of 7.8, hemoglobin 9.7, platelets 238. Sodium 140, potassium 3.5, chloride 110, bicarb 26, BUN 30, creatinine 0.42. Albumin 2.2. On 06/28/2020 - patient was seen and examined at the bedside. She is in the ICU. Intubated and sedated with tracheostomy and PEG tube in place. No acute events reported by nursing staff overnight. Blood gases show a PaO2 of 64, PaCO2 of 40, and pH of 7.47. She remains on a Versed drip and fentanyl drips. Labs include a white count 8.2, hemoglobin 9.4, hematocrit 28.8, and platelet count 240,000. D-dimer is 12.34. Sodium 140, potassium 4.1, chlorides 106, CO2 31, anion gap 3, BUN 31, creatinine 0.48. Chest x-ray shows bilateral diffuse infiltrates. 06/29/2020 Patient remains on ventilator support at the set up rate of 28 pedal volume of 400 FiO2 of 50% and PEEP of 14. Patient is on propofol at 75 mics per hour. Patient is on NG tube feedings. Review of systems: Unable to obtain due to her clinical condition All inpatient medications were reviewed and appropriate changes in these medications as dictated in the interval history and assessment and plan. Objective - Vital Signs Vital signs: Vital Signs Temp 99.5 F 06/29/20 08:00 Pulse 101 H 06/29/20 10:00 Resp 41 H 06/29/20 10:00 BP 134/68 06/28/20 19:00 Pulse Ox 83 L 06/29/20 10:00 Intake & Output 06/28/20 06/29/20 06/29/20 18:59 06:59 18:59 Intake Total 1182.067 932.625 322.776 Output Total 750 730 175 Balance 432.067 202.625 147.776 Weight 89.9 kg 89.9 kg 89.9 kg Intake: IV 299 253 69 .9NS A line 39 33 9 0.9 260 220 60 Intake, IV Titration 175.067 149.625 103.776 Amount propofoL 1,000 mg In 175.067 149.625 103.776 Empty Bag 1 bag @ Titrate IV .Q0M [facility] Rx#: [id number] Tube Feeding 618 440 120 Other 90 90 30 Output: Urine 750 730 175 Other: Voiding Method Indwelling Catheter Indwelling Catheter Indwelling Catheter ABP, PAP, CO, CI - Last Documented Arterial Blood Pressure 101/50 - Exam PHYSICAL EXAM GENERAL EXAM: sedated, intubated, 69-year-old white female, intubated, mechanically ventilated, sedated. Status post tracheostomy and PEG tube placement on 06/25 Head: Atraumatic, normocephalic. Tracheostomy in place. HEENT: PERRLA, EOMI, nonicteric, no neck masses, no JVD, no stridor. CHEST: No chest wall deformity. Symmetrical expansion. LUNGS: Symmetrical chest expansion, crackles at the bases CVS: Regular rate and rhythm, normal S1 and S2, ABDOMEN: Soft, nontender. PEG tube is intact. EXTREMITIES: No clubbing,pitting edema in all 4 extremities, no cyanosis, 2+ pulses and upper and lower extremities. CENTRAL NERVOUS SYSTEM: Sedated, intubated so could not assess Note: Because of COVID 19 isolation, some of the history and physical exam findings are indirect and obtained from nursing staff, and other physician examinations to avoid unnecessary contact with the patient. - Labs CBC & Chem 7: 06/29/20 04:32 06/29/20 04:32 Labs: Abnormal Lab Results - Last 24 Hours (Table) 06/28/20 06/29/20 06/29/20 Range/Units 20:10 04:32 04:32 RBC 3.19 L (3.80-5.40) m/uL Hgb 9.7 L (11.4-16.0) gm/dL Hct 30.2 L (34.0-46.0) % RDW 15.8 H (11.5-15.5) % Neutrophils # 9.3 H (1.3-7.7) k/uL Lymphocytes # 0.3 L (1.0-4.8) k/uL D-Dimer 10.49 H (<0.60) mg/L FEU ABG pH (7.35-7.45) ABG pO2 (83-108) mmHg ABG HCO3 (21-25) mmol/L ABG Total CO2 (19-24) mmol/L ABG O2 Saturation (94-97) % BUN (7-17) mg/dL Glucose (74-99) mg/dL POC Glucose (mg/dL) 127 H (75-99) mg/dL Lactate Dehydrogenase (313-618) U/L C-Reactive Protein (<1.0) mg/dL Total Protein (6.3-8.2) g/dL Albumin (3.5-5.0) g/dL 06/29/20 06/29/20 06/29/20 Range/Units 04:32 04:52 08:09 RBC (3.80-5.40) m/uL Hgb (11.4-16.0) gm/dL Hct (34.0-46.0) % RDW (11.5-15.5) % Neutrophils # (1.3-7.7) k/uL Lymphocytes # (1.0-4.8) k/uL D-Dimer (<0.60) mg/L FEU ABG pH 7.52 H (7.35-7.45) ABG pO2 57 L* (83-108) mmHg ABG HCO3 28 H (21-25) mmol/L ABG Total CO2 29 H (19-24) mmol/L ABG O2 Saturation 89.8 L (94-97) % BUN 28 H (7-17) mg/dL Glucose 111 H (74-99) mg/dL POC Glucose (mg/dL) 163 H (75-99) mg/dL Lactate Dehydrogenase 952 H (313-618) U/L C-Reactive Protein 9.0 H (<1.0) mg/dL Total Protein 5.0 L (6.3-8.2) g/dL Albumin 2.4 L (3.5-5.0) g/dL 06/29/20 Range/Units 11:44 RBC (3.80-5.40) m/uL Hgb (11.4-16.0) gm/dL Hct (34.0-46.0) % RDW (11.5-15.5) % Neutrophils # (1.3-7.7) k/uL Lymphocytes # (1.0-4.8) k/uL D-Dimer (<0.60) mg/L FEU ABG pH (7.35-7.45) ABG pO2 (83-108) mmHg ABG HCO3 (21-25) mmol/L ABG Total CO2 (19-24) mmol/L ABG O2 Saturation (94-97) % BUN (7-17) mg/dL Glucose (74-99) mg/dL POC Glucose (mg/dL) 120 H (75-99) mg/dL Lactate Dehydrogenase (313-618) U/L C-Reactive Protein (<1.0) mg/dL Total Protein (6.3-8.2) g/dL Albumin (3.5-5.0) g/dL Microbiology - Last 24 Hours (Table) 06/28/20 15:30 Gram Stain - Preliminary Neck Wound Culture - Preliminary 06/28/20 15:30 Anaerobic Culture - Preliminary Neck Assessment and Plan Plan: Acute hypoxic respiratory failure secondary to COVID-19 pneumonia. New onset atrial fibrillation with RVR S/P Tracheostomy and PEG tube placement on 06/25/2020 Elevated inflammatory markers History of CVA and aphasia. Hypertension. Type 2 diabetes. Dyslipidemia. History of right-sided mastectomy for breast cancer. Former smoker. Dyslipidemia. PLAN: Patient received tociluzumab .S/P Tracheostomy and PEG tube placement on 06/25/2020. She was treated with amiodarone, heparin for A. fib and now on Lovenox .Continue with steroids, IV fluids, continue with vitamin C, vitamin D and zinc. Ventilator , weaning trail and sedation holiday as per ICU management. Tracheostomy and PEG tube care. She would be a candidate for LTAC. Over all prognosis is poor.
[2020-06-29 16:24] LABS: Glucose,Whole Blood 176 mg/dL (75-99)
[2020-06-29] MEDS: ATORVASTATIN 10 MG TAB PO SCH (20:41)
[2020-06-29 20:43] LABS: Glucose,Whole Blood 185 mg/dL (75-99)
[2020-06-30 00:05] LABS: Glucose,Whole Blood 84 mg/dL (75-99)
[2020-06-30] MEDS: INSULIN ASPART (NovoLOG) 100 UNIT/ML VIAL SQ SCH ×8 (00:07→16:29)
[2020-06-30 04:09] LABS: Glucose,Whole Blood 62 mg/dL (75-99)
[2020-06-30] MEDS ORDERED: DEXTROSE 50% SYRINGE 50 ML IVP ONE ×2 (04:09→08:05)
[2020-06-30 04:38] LABS: Basophils % (A) 0 %; Eosinophils # (A) 0.2 k/uL (0-0.7); Eosinophils % (A) 2 %; HCT 27.2 % (34.0-46.0); HGB 9.1 gm/dL (11.4-16.0); Hypochromasia Slight; Lymphocytes # (A) 0.5 k/uL (1.0-4.8); Lymphocytes % (A) 6 %; MCH 31.1 pg (25.0-35.0); MCHC 33.3 g/dL (31.0-37.0); MCV 93.4 fL (80.0-100.0); Mean Platelet Volume 8.5; Monocytes # (A) 0.2 k/uL (0-1.0); Monocytes % (A) 2 %; Neutrophils # (A) 7.4 k/uL (1.3-7.7); Neutrophils % (A) 89 %; Platelet Count 254 k/uL (150-450); RBC 2.91 m/uL (3.80-5.40); RDW 15.4 % (11.5-15.5); WBC 8.3 k/uL (3.8-10.6)
[2020-06-30 04:40] LABS: Glucose,Whole Blood 133 mg/dL (75-99)
[2020-06-30 04:58] LABS: ALT 34 U/L (4-34); AST 42 U/L (14-36); African American GFR (CKD) >90 (>60 ml/min/1.73 sqM); Albumin 2.2 g/dL (3.5-5.0); Alkaline Phosphatase 68 U/L (38-126); Anion Gap 5 mmol/L; Blood Urea Nitrogen 26 mg/dL (7-17); Calcium 9.1 mg/dL (8.4-10.2); Carbon Dioxide 27 mmol/L (22-30); Chloride 106 mmol/L (98-107); Creatine Kinase 147 U/L (30-135); Glucose 51 mg/dL (74-99); LDH 909 U/L (313-618); Non-African American GFR(CKD) >90 (>60 ml/min/1.73 sqM); Potassium 3.2 mmol/L (3.5-5.1); Sodium 138 mmol/L (137-145); Total Bilirubin 0.4 mg/dL (0.2-1.3); Total Protein 4.8 g/dL (6.3-8.2)
[2020-06-30 05:23] LABS: C Reactive Protein 23.4 mg/dL (<1.0)
[2020-06-30 05:25] LABS: ABG HCO3 27 mmol/L (21-25); ABG PCO2 36 mmHg (35-45); ABG PH 7.49 (7.35-7.45); ABG PO2 66 mmHg (83-108); ABG TCO2 29 mmol/L (19-24)
[2020-06-30] MEDS: POTASSIUM BICARBONATE/CIT AC 20 MEQ TABLET.EFF NG-TUBE SCH ×2 (05:35→09:08)
[2020-06-30 08:05] LABS: Glucose,Whole Blood 64 mg/dL (75-99)
[2020-06-30] MEDS: INSULIN DETEMIR (LEVEMIR) 100 UNIT/ML SYR SQ SCH (08:22)
[2020-06-30 08:23] LABS: Glucose,Whole Blood 108 mg/dL (75-99)
--- NOTE | 2020-06-30 08:45 | XR ---
EXAMINATION TYPE: XR chest 1V DATE OF EXAM: 06/30/2020 COMPARISON: 06/28/2020 HISTORY: Shortness of breath TECHNIQUE: Single frontal view of the chest is obtained. FINDINGS: Left-sided PICC line noted is hypertrophic and degenerative changes spine. Interstitial pa ttern seen with patchy bilateral infiltrates and small effusion stable in appearance. No pneumothorax . IMPRESSION: 1. Patchy bilateral infiltrate greater on the left stable.
[2020-06-30] MEDS: ENOXAPARIN 40 MG/0.4 ML SYRINGE SQ SCH ×2 (09:05→20:10)
[2020-06-30] MEDS: CHLORHEXIDINE GLUCONATE 15 ML CUP MUCOUS MEM SCH ×2 (09:05→20:10)
[2020-06-30] MEDS: FAMOTIDINE 20 MG TAB PO SCH ×2 (09:05→20:10)
[2020-06-30] MEDS: ASCORBIC ACID 500 MG TAB PO SCH (09:05)
[2020-06-30] MEDS: ZINC SULFATE 220 MG CAP PO SCH (09:06)
[2020-06-30] MEDS: SERTRALINE 50 MG TAB PO SCH (09:06)
[2020-06-30] MEDS: CHOLECALCIFEROL 25 MCG (1000 IU) TABLET PO SCH (09:06)
[2020-06-30] MEDS: HYDROmorphone 1 MG/ML 1 ML SYRINGE IVP PRN ×3 (09:08→21:29)
--- NOTE | 2020-06-30 10:14 | P.PN ---
Subjective Progress Note Date: 06/30/20 Principal diagnosis: COVID 19 pneumonia. Patient was reevaluated today on 06/23/2020, remains in the ICU, intubated and mechanically ventilated. She is on assist control rate of 28 tidal volume is 400 FiO2 50% PEEP remains 15. I did cut down the PEEP to 12. ABG showed a pO2 of 61 pCO2 of 46 pH of 7.44. Patient remains on Versed and fentanyl, not requiring any Nimbex, Versed is 10 mg per hour, and fentanyl at 1.5 mcg/kg/h. She is on enteral feeding using vital hP and 59/59. Patient is hemodynamically stable, she is in sinus rhythm, peak airway pressure is 28, and static pressure is 17. Chest x-ray continues to show bilateral of disease consistent with COVID-19 pneumonia. Basic metabolic profile is normal renal profile is normal LDH is 1628. C-reactive protein is 2.7 BC is relatively normal. Spinal fluid cultures have been negative from a week ago Patient was reevaluated today on 06/24/2020, remains in the ICU, intubated and mechanically ventilated. He is on assist control rate of 28 tidal volumes 400 FiO2 50% PEEP of 14. ABG showed a pO2 of 58 pCO2 of 52 pH of 7.40. Patient is on fentanyl at 1.5 and Versed at 11 mg per hour. My plan is to give the patient a sedation holiday. And assess mental status. Although the patient remains on relatively high PEEP, she is not ready to wean, and I would recommend tracheostomy and PEG tube placement on this patient. Remains on vital Hp at 59 mL per hour. Surgical consultation for tracheostomy and PEG tube was initiated. WBC count is 9.9 hemoglobin is 10.4. Electrolytes are normal. Renal profile is normal. LDH remains high at 1572. C-reactive protein is 4.0. Both seem to be trending down. And showing improvement. Chest x-ray continues to show bilateral pneumonia. 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 Patient was reevaluated today on 06/25/2020, remains in the ICU, intubated and me chanically ventilated. She is now on assist control rate of 28 tidal volume 400 FiO2 50% and PEEP at 14. Her ABG showed a pO2 of 61 pCO2 of 53 pH of 7.40. Hence no changes were made in the ventilator settings. The patient remains on Versed at 11 mg per hour, fentanyl at 1.5 mcg/kg/h, and IV fluid at KVO. Chest x-ray continues to show basically bibasilar infiltrates. Patient is scheduled to have PEG and tracheostomy tube placement today. Her enteral feeding is presently on hold. CBC is relatively normal. Electrolytes and renal profile are relatively normal. LDH is 1510, C-reactive protein is 7.5. Reevaluated today on 06/26/2020, patient remains in the ICU, intubated and mechanically ventilated. She is status post tracheostomy and PEG tube placement done yesterday on 06/25. Vent settings are assist control rate 28 tidal volume is 400 FiO2 50% PEEP of 14 ABG showed a pO2 of 60 pCO2 of 44 pH of 7.47. Patient remains on Versed and on fentanyl. My plan is to discontinue both tod ay, assess the patient's mental status off sedation, and decide whether she needs to be on that much sedation or not after waking up with the patient and assessing mental status. Tube feeds remain on hold at present because the patient had a PEG tube placed yesterday. She will be restarted back on vital hp at 59 mL per hour. Again the patient will receive today at least a brief sedation holiday. Patient is hemodynamically stable, chest x-ray continues to show minimal bibasilar infiltrates, consistent with COVID-19 pneumonia. Improved compared to her baseline. CBC is normal. Basic metabolic profile is normal. D-dimer is 29.03 LDH is 1368 C-reactive protein is 7.7. Patient was on Lovenox at 40 mg subcu twice a day, and I will go ahead and place her back on Lovenox, may eventually restart her back on Xarelto and discontinue Lovenox. Patient was reevaluated today on 06/27/2020, remains in the ICU, intubated and mechanically ventilated. Sedated but not requiring any paralytics. Patient is on assist control rate of 28 tidal volume is 400 FiO2 50% and PEEP of 14. Her ABG showed a pO2 of 62 pCO2 of 38 pH of 7.48. Patient is receiving vital Hb at 30 mL per hour. She is on fentanyl at 1 mcg/kg/m, she is also on Versed at 11 milligrams per hour. Her IV fluid is at KVO. And will increase the IV fluid today a bit. Attempts have been made over the last few days to cut down on sedation, however the patient gets extremely agitated, no appropriate responses have been noted on lower amounts of sedation. And will give the patient today another trial of lowering sedation and assessment of mental status. Previous attempts have failed in the last few days. But we will continue to try sedation holidays on a daily basis. At least the patient is not requiring any paralytics . Chest x-ray continues to show by basilar infiltrates. Not significantly changed over the last few days. LDH today is 1037 C-reactive protein is 7.0. Steadily improving considering the patient had LDH in the range of 3400 in the last few days ABC today is relatively normal hemoglobin is 9.7. Basic metabolic profile is normal with relatively normal renal profile. Progress note dated 06/28/2020. The patient was admitted on June 12. The patient was intubated on June 18. The patient underwent tracheostomy and PEG tube placement on June 25. She was diagnosed with COVID 19 pneumonia with hypoxemic respiratory failure. The patient is again seen in the intensive care unit room 254. She remains on the mechanical ventilator, on the volume assist control mode, rate 28, tidal volume 400, FiO2 50%, and PEEP of 14. Blood gases show a PaO2 of 64, PaCO2 of 40, and pH of 7.47. She remains on a Versed drip at 9 mg an hour, fentanyl drip at 1 mcg/kg/h, saline at 20 mL an hour, and vital high protein at 59 mL an hour, which is goal. We will DC the Versed and get the patient on propofol. We will attempt to get the patient off the fentanyl drip by using Dilaudid when necessary. Labs include a white count 8.2, hemoglobin 9.4, hematocrit 28.8, and platelet count 240,000. D-dimer is 12.34. Sodium 140, potassium 4.1, chlorides 106, CO2 31, anion gap 3, BUN 31, creatinine 0.48. Chest x-ray shows bilateral diffuse infiltrates. Tracheostomy tube is noted. Progress note dated 06/29/2020. This patient was admitted on June 12, and was intubated on June 18. The patient underwent tracheostomy and PEG tube placement on June 25. She was diagnosed with acute hypoxemic respiratory failure secondary to coronavirus pneumonia. Currently, the patient remains in the intensive care unit. She is in room 254. She is again seen today. She remains on the ventilator, volume assist control mode, rate 28, tidal volume 400, FiO2 50%, and PEEP of 14. Blood gases show pO2 of 57, pCO2 of 34, pH is 7.52. The patient remains on propofol at 70 mcg/kg/m, saline at 10 mL an hour, and vital high protein at goal, which is 40 mL an hour. Today, we will do a daily interruption of sedation. White count 10, hemoglobin 9.7, hematocrit 30.2, platelet count 2 58,000. D-dimer is 10.49. Sodium 137, potassium 3.9, chlorides 104, CO2 28, anion gap 5, BUN 28, creatinine 0.54. LDH is 952, C-reactive protein is 9. No chest x-ray today. Progress note dated 06/30/2020. 69-year-old female, admitted on June 12, intubated on June 18, and on June 25, underwent tracheostomy and PEG tube placement. She was diagnosed initially with acute hypoxemic respiratory failure secondary to coronavirus pneumonia. Currently, the patient remains on the volume assist control mode, rate 28, tidal volume 400, FiO2 50%, and PEEP of 14. The people be dropped from 14, down to 10. The patient's blood gases show a PaO2 of 66, PaCO2 36, and a pH 7.49. The patient remains on propofol at 75 mcg/kg/m, saline at 20 mL an hour, and vital high protein at 19 mL an hour, which is goal. She did have a daily interruption of sedation on June 29. She did fair. We are going to DC the long acting insulin and start her on NovoLog sliding scale, every 4 hours. In addition, we'll go ahead and start her on Rocephin, for a pending culture from the neck area/tracheostomy site. White count 8.3, hemoglobin 9.1, hematocrit 27.2, and platelet count are 254,000. Sodium 138, potassium 3.2, chlorides 106, CO2 27, anion gap 5, BUN 26, and creatinine 0.41. LDH is 909, and C-reactive protein is 23.4. Gram stain from the neck wound area shows group B strep, and 2 gram- negative bacilli. Chest x-ray shows bilateral infiltrates, worse on the left. Objective - Vital Signs Vital signs: Vital Signs Temp 98.2 F 06/30/20 04:00 Pulse 97 06/30/20 07:00 Resp 43 H 06/30/20 07:00 BP 134/68 06/28/20 19:00 Pulse Ox 92 L 06/30/20 07:00 Intake & Output 06/29/20 06/30/20 06/30/20 18:59 06:59 18:59 Intake Total 983.000 894.806 294.327 Output Total 875 800 175 Balance 108.000 94.806 119.327 Weight 89.9 kg 87.8 kg Intake: IV 276 276 69 .9NS A line 36 36 9 0.9 240 240 60 Intake, IV Titration 200.000 319.806 138.327 Amount cefTRIAXone 1 gm In 50 Sodium Chloride 0.9% 50 ml @ 100 mls/hr IVPB Q24HR [facility] Rx#:[id number] propofoL 1,000 mg In 200.000 319.806 88.327 Empty Bag 1 bag @ Titrate IV .Q0M [facility]AN[facility] Rx#: [id number] Tube Feeding 417 209 57 Other 90 90 30 Output: Urine 875 800 175 Other: Voiding Method Indwelling Catheter Indwelling Catheter Indwelling Catheter ABP, PAP, CO, CI - Last Documented Arterial Blood Pressure 132/53 - Exam No acute distress, sedated, with a midline tracheostomy tube. Saturations are 92%. HEENT examination is grossly unremarkable. Neck supple. Full range of motion. No adenopathy thyromegaly or neck vein distention. Cardiovascular examination reveals regular rhythm rate. S1-S2 normal. No S3 or S4. No discernible murmur noted. Heart rate is 97 bpm. Heart sounds are distant. Lungs reveal coarse bilateral rhonchi, and crackles. No wheezes. Breath sounds equal bilaterally. Breath sounds are diminished bilaterally. Abdomen soft bowel sounds are heard. No masses or tenderness. Extremities are intact. No cyanosis clubbing or edema. Skin is without rash or lesion. Neurologic examination could not be assessed as the patient's currently sedated. - Labs CBC & Chem 7: 06/30/20 04:10 06/30/20 04:10 Labs: Abnormal Lab Results - Last 24 Hours (Table) 06/29/20 06/29/20 06/29/20 Range/Units 11:44 16:22 20:32 RBC (3.80-5.40) m/uL Hgb (11.4-16.0) gm/dL Hct (34.0-46.0) % Lymphocytes # (1.0-4.8) k/uL ABG pH (7.35-7.45) ABG pO2 (83-108) mmHg ABG HCO3 (21-25) mmol/L ABG Total CO2 (19-24) mmol/L ABG O2 Saturation (94-97) % Potassium (3.5-5.1) mmol/L BUN (7-17) mg/dL Creatinine (0.52-1.04) mg/dL Glucose (74-99) mg/dL POC Glucose (mg/dL) 120 H 176 H 185 H (75-99) mg/dL AST (14-36) U/L Lactate Dehydrogenase (313-618) U/L Creatine Kinase (30-135) U/L C-Reactive Protein (<1.0) mg/dL Total Protein (6.3-8.2) g/dL Albumin (3.5-5.0) g/dL 06/30/20 06/30/20 06/30/20 Range/Units 04:08 04:10 04:10 RBC 2.91 L (3.80-5.40) m/uL Hgb 9.1 L (11.4-16.0) gm/dL Hct 27.2 L (34.0-46.0) % Lymphocytes # 0.5 L (1.0-4.8) k/uL ABG pH (7.35-7.45) ABG pO2 (83-108) mmHg ABG HCO3 (21-25) mmol/L ABG Total CO2 (19-24) mmol/L ABG O2 Saturation (94-97) % Potassium 3.2 L (3.5-5.1) mmol/L BUN 26 H (7-17) mg/dL Creatinine 0.41 L (0.52-1.04) mg/dL Glucose 51 L (74-99) mg/dL POC Glucose (mg/dL) 62 L (75-99) mg/dL AST 42 H (14-36) U/L Lactate Dehydrogenase 909 H (313-618) U/L Creatine Kinase 147 H (30-135) U/L C-Reactive Protein 23.4 H (<1.0) mg/dL Total Protein 4.8 L (6.3-8.2) g/dL Albumin 2.2 L (3.5-5.0) g/dL 06/30/20 06/30/20 06/30/20 Range/Units 04:38 05:12 08:03 RBC (3.80-5.40) m/uL Hgb (11.4-16.0) gm/dL Hct (34.0-46.0) % Lymphocytes # (1.0-4.8) k/uL ABG pH 7.49 H (7.35-7.45) ABG pO2 66 L (83-108) mmHg ABG HCO3 27 H (21-25) mmol/L ABG Total CO2 29 H (19-24) mmol/L ABG O2 Saturation 93.0 L (94-97) % Potassium (3.5-5.1) mmol/L BUN (7-17) mg/dL Creatinine (0.52-1.04) mg/dL Glucose (74-99) mg/dL POC Glucose (mg/dL) 133 H 64 L (75-99) mg/dL AST (14-36) U/L Lactate Dehydrogenase (313-618) U/L Creatine Kinase (30-135) U/L C-Reactive Protein (<1.0) mg/dL Total Protein (6.3-8.2) g/dL Albumin (3.5-5.0) g/dL 06/30/20 Range/Units 08:21 RBC (3.80-5.40) m/uL Hgb (11.4-16.0) gm/dL Hct (34.0-46.0) % Lymphocytes # (1.0-4.8) k/uL ABG pH (7.35-7.45) ABG pO2 (83-108) mmHg ABG HCO3 (21-25) mmol/L ABG Total CO2 (19-24) mmol/L ABG O2 Saturation (94-97) % Potassium (3.5-5.1) mmol/L BUN (7-17) mg/dL Creatinine (0.52-1.04) mg/dL Glucose (74-99) mg/dL POC Glucose (mg/dL) 108 H (75-99) mg/dL AST (14-36) U/L Lactate Dehydrogenase (313-618) U/L Creatine Kinase (30-135) U/L C-Reactive Protein (<1.0) mg/dL Total Protein (6.3-8.2) g/dL Albumin (3.5-5.0) g/dL Microbiology - Last 24 Hours (Table) 06/28/20 15:30 Gram Stain - Preliminary Neck Wound Culture - Preliminary Strep agalactiae - (group b) Gram Neg Bacilli Gram Neg Bacilli#2 Assessment and Plan Assessment: Acute hypoxemic respiratory failure secondary to COVID 19 pneumonitis/pneumonia, with intubation on June 18, and tracheostomy/PEG tube placement on June 25. New onset atrial fibrillation with RVR. Elevated inflammatory marker secondary to COVID infection. History of CVA and aphasia. History of essential hypertension. History of type 2 diabetes mellitus. History of hyperlipidemia. Status post right-sided mastectomy for breast cancer. Previous history of tobacco use. Hyperlipidemia. Plan: Plan dated 06/28/2020. In light of the recent article in the Journal of Critical Care, which compared Versed versus propofol for critically ill patient's in the intensive care unit, the patient's Versed will be discontinued in favor of propofol. In addition, we will attempt to get the patient off of fentanyl by using Dilaudid when necessary. Additional recommendations and suggestions are forthcoming. Follow patient and make recommendations were appropriate. Overall prognosis remains guarded. She might be a candidate for long-term acute care, if we can get her off the propofol and fentanyl eventually. Plan dated 06/29/2020. The patient's Versed was discontinued yesterday, in favor of propofol. We will attempt to wean that today. In addition, the patient will have a daily interruption of sedation today. The patient would be a great candidate for a long-term acute care facility, once we get her off the sedative. We will continue to follow her very closely. She is to get Dilaudid when necessary. Additional recommendations and suggestions are forthcoming. Prognosis is guarded. We will continue to follow along, and make recommendations where appropriate. Plan dated 06/30/2020. The patient's PEEP will be dropped down to 10, from her current PEEP level of 14. Her gases are reviewed. She remains on propofol at 75 mcg/kg/m. The patient will have another daily interruption of sedation today. In addition, we'll DC all long-acting insulin, and put her on NovoLog sliding scale, every 4 hours. Finally, we start Rocephin, for the pending abnormal culture data from the Gram stain from the tracheostomy site. Additional recommendations and suggestions are forthcoming. We will attempt to get her off the propofol, so that we can get her transferred to long-term acute care. Additional recommendations and suggestions are forthcoming. Prognosis is poor. Time with Patient: Greater than 30
--- NOTE | 2020-06-30 11:15 | P.PN ---
Subjective Progress Note Date: 06/30/20 CHIEF COMPLAINT: COVID-19 pneumonia HISTORY OF PRESENT ILLNESS: Patient remains in the ICU on mechanical ventilation. She is hospitalized for COVID-19 pneumonia with hypoxic respiratory failure. She is status post tracheostomy and PEG tube placement. She is tolerating tube feeds. Patient had drainage from the tracheostomy site. Culture from tracheostomy site growing gram-negative bacilli and strep agalactiae. Critical care service did add Rocephin. Afebrile. WBC 8.3 creatinine 0.41 PHYSICAL EXAM: VITAL SIGNS: Reviewed. GENERAL: Well-developed in no acute distress. HEENT: Head is atraumatic, normocephalic. Tracheostomy site with drainage ABDOMEN: Soft. Nondistended. Nontender. PEG tube site clean dry and intact NEUROLOGIC: Intubated and sedated ASSESSMENT: 1. Acute hypoxic respiratory failure due to COVID-19 pneumonia. Status post tracheostomy placement 2. Severe protein calorie malnutrition status post PEG tube placement 3. Infection at tracheostomy site PLAN: -Continue ICU management -Continue supportive care -Continue PEG tube feedings -Continue antibiotics for infection at tracheostomy site Physician Wireless Architect note has been reviewed by physician. Signing provider agrees with the documented findings, assessment, and plan of care. Objective - Vital Signs Vital signs: Vital Signs Temp 98.2 F 06/30/20 04:00 Pulse 107 H 06/30/20 10:00 Resp 29 H 06/30/20 10:00 BP 134/68 06/28/20 19:00 Pulse Ox 94 L 06/30/20 10:00 Intake & Output 06/29/20 06/30/20 06/30/20 18:59 06:59 18:59 Intake Total 983.000 894.806 336.327 Output Total 875 800 225 Balance 108.000 94.806 111.327 Weight 89.9 kg 87.8 kg Intake: IV 276 276 92 .9NS A line 36 36 12 0.9 240 240 80 Intake, IV Titration 200.000 319.806 138.327 Amount cefTRIAXone 1 gm In 50 Sodium Chloride 0.9% 50 ml @ 100 mls/hr IVPB Q24HR [facility] Rx#:[id number] propofoL 1,000 mg In 200.000 319.806 88.327 Empty Bag 1 bag @ Titrate IV .Q0M [facility] Rx#: [id number] Tube Feeding 417 209 76 Other 90 90 30 Output: Urine 875 800 225 Other: Voiding Method Indwelling Catheter Indwelling Catheter Indwelling Catheter ABP, PAP, CO, CI - Last Documented Arterial Blood Pressure 122/54 - Labs CBC & Chem 7: 06/30/20 04:10 06/30/20 04:10 Labs: Abnormal Lab Results - Last 24 Hours (Table) 06/29/20 06/29/20 06/29/20 Range/Units 11:44 16:22 20:32 RBC (3.80-5.40) m/uL Hgb (11.4-16.0) gm/dL Hct (34.0-46.0) % Lymphocytes # (1.0-4.8) k/uL ABG pH (7.35-7.45) ABG pO2 (83-108) mmHg ABG HCO3 (21-25) mmol/L ABG Total CO2 (19-24) mmol/L ABG O2 Saturation (94-97) % Potassium (3.5-5.1) mmol/L BUN (7-17) mg/dL Creatinine (0.52-1.04) mg/dL Glucose (74-99) mg/dL POC Glucose (mg/dL) 120 H 176 H 185 H (75-99) mg/dL AST (14-36) U/L Lactate Dehydrogenase (313-618) U/L Creatine Kinase (30-135) U/L C-Reactive Protein (<1.0) mg/dL Total Protein (6.3-8.2) g/dL Albumin (3.5-5.0) g/dL 06/30/20 06/30/20 06/30/20 Range/Units 04:08 04:10 04:10 RBC 2.91 L (3.80-5.40) m/uL Hgb 9.1 L (11.4-16.0) gm/dL Hct 27.2 L (34.0-46.0) % Lymphocytes # 0.5 L (1.0-4.8) k/uL ABG pH (7.35-7.45) ABG pO2 (83-108) mmHg ABG HCO3 (21-25) mmol/L ABG Total CO2 (19-24) mmol/L ABG O2 Saturation (94-97) % Potassium 3.2 L (3.5-5.1) mmol/L BUN 26 H (7-17) mg/dL Creatinine 0.41 L (0.52-1.04) mg/dL Glucose 51 L (74-99) mg/dL POC Glucose (mg/dL) 62 L (75-99) mg/dL AST 42 H (14-36) U/L Lactate Dehydrogenase 909 H (313-618) U/L Creatine Kinase 147 H (30-135) U/L C-Reactive Protein 23.4 H (<1.0) mg/dL Total Protein 4.8 L (6.3-8.2) g/dL Albumin 2.2 L (3.5-5.0) g/dL 06/30/20 06/30/20 06/30/20 Range/Units 04:38 05:12 08:03 RBC (3.80-5.40) m/uL Hgb (11.4-16.0) gm/dL Hct (34.0-46.0) % Lymphocytes # (1.0-4.8) k/uL ABG pH 7.49 H (7.35-7.45) ABG pO2 66 L (83-108) mmHg ABG HCO3 27 H (21-25) mmol/L ABG Total CO2 29 H (19-24) mmol/L ABG O2 Saturation 93.0 L (94-97) % Potassium (3.5-5.1) mmol/L BUN (7-17) mg/dL Creatinine (0.52-1.04) mg/dL Glucose (74-99) mg/dL POC Glucose (mg/dL) 133 H 64 L (75-99) mg/dL AST (14-36) U/L Lactate Dehydrogenase (313-618) U/L Creatine Kinase (30-135) U/L C-Reactive Protein (<1.0) mg/dL Total Protein (6.3-8.2) g/dL Albumin (3.5-5.0) g/dL 06/30/20 Range/Units 08:21 RBC (3.80-5.40) m/uL Hgb (11.4-16.0) gm/dL Hct (34.0-46.0) % Lymphocytes # (1.0-4.8) k/uL ABG pH (7.35-7.45) ABG pO2 (83-108) mmHg ABG HCO3 (21-25) mmol/L ABG Total CO2 (19-24) mmol/L ABG O2 Saturation (94-97) % Potassium (3.5-5.1) mmol/L BUN (7-17) mg/dL Creatinine (0.52-1.04) mg/dL Glucose (74-99) mg/dL POC Glucose (mg/dL) 108 H (75-99) mg/dL AST (14-36) U/L Lactate Dehydrogenase (313-618) U/L Creatine Kinase (30-135) U/L C-Reactive Protein (<1.0) mg/dL Total Protein (6.3-8.2) g/dL Albumin (3.5-5.0) g/dL Microbiology - Last 24 Hours (Table) 06/28/20 15:30 Gram Stain - Preliminary Neck Wound Culture - Preliminary Strep agalactiae - (group b) Gram Neg Bacilli Gram Neg Bacilli#2
[2020-06-30 12:17] LABS: Glucose,Whole Blood 106 mg/dL (75-99)
[2020-06-30 16:24] LABS: Glucose,Whole Blood 116 mg/dL (75-99)
--- NOTE | 2020-06-30 18:44 | P.PN ---
Progress Note - Text Progress Note Date: 06/30/20 Chief Complaint: Short of breath History of presenting complaint: This is a 69-year-old patient who follows with Dr. blake . Patient was last seen in the ER about 5 days ago. She then had an having respiratory symptoms including cough for about 2 or 3 weeks prior to that. On this presentation is patient is altered sense. She was last seen normal at home on Sunday. EMS was called out and they found the patient to be hypoxic with 46%. Patient was ventilated with a bag valve and pulse oxygenation improved. He was placed on a nonrebreather and brought here. Here patient's problem of BiPAP. And is somewhat delirious. Not able to give any history. Patient chronic stable medical conditions include diabetes, hypertension, hyperlipidemia, history of breast cancer with right mastectomy. No family members currently present. Admitted with acute severe bilateral COVID 19 pneumonia, acute severe hypoxic respiratory failure, acute metabolic encephalopathy, with delirium. Patient placed on oxygen. Decadron. Lovenox. Consultation to neurology, pulmonary. Lumbar puncture/CSF unremarkable. Patient was placed on BiPAP. Progression of respiratory status patient intubated on June 18. Run of Cswitch with rapid ventricular rate-sinus rhythm. Today-ICU: Ventilator: Ventilator: FiO2 50, PEEP of 10. Has a tracheostomy. PEG tube feeding at 90 mL an hour. Getting a sedation holiday off propofol today. Review of systems: Patient on the ventilator Active Medications Acetaminophen (Acetaminophen Suppository 650 Mg Supp) 650 mg RECTAL Q4HR PRN PRN Reason: Fever And/ Or Mild Pain Last Admin: 06/13/20 21:46 Dose: 650 mg Documented by: Ascorbic Acid (Ascorbic Acid 500 Mg Tab) 1,000 mg PO DAILY [facility] Last Admin: 06/30/20 09:05 Dose: 1,000 mg Documented by: Atorvastatin Calcium (Atorvastatin 10 Mg Tab) 10 mg PO HS [facility] Last Admin: 06/29/20 20:41 Dose: 10 mg Documented by: Chlorhexidine Gluconate (Chlorhexidine Gluconate 15 Ml Cup) 15 ml MUCOUS MEM BID [facility] Last Admin: 06/30/20 09:05 Dose: 15 ml Documented by: Cholecalciferol (Cholecalciferol 25 Mcg (1000 Iu) Tablet) 25 mcg PO DAILY [facility] [place] Last Admin: 06/30/20 09:06 Dose: 25 mcg Documented by: Enoxaparin Sodium (Enoxaparin 40 Mg/0.4 Ml Syringe) 40 mg SQ BID [facility] [place] Last Admin: 06/30/20 09:05 Dose: 40 mg Documented by: Famotidine (Famotidine 20 Mg Tab) 20 mg PO Q12HR [facility] Last Admin: 06/30/20 09:05 Dose: 20 mg Documented by: Hydromorphone HCl (Hydromorphone 1 Mg/Ml 1 Ml Syringe) 1 mg IVP Q4HR PRN PRN Reason: Pain Last Admin: 06/30/20 16:29 Dose: 1 mg Documented by: Fentanyl Citrate 1,000 mcg/ (Sodium Chloride) 100 mls @ 0 mls/hr IV .Q0M [facility]; Protocol Last Admin: 06/28/20 01:49 Dose: 1 mcg/kg/hr, 8.61 mls/hr Documented by: Propofol 1,000 mg/ IV Solution 100 mls @ 0 mls/hr IV .Q0M [facility] [place]; Protocol Last Titration: 06/30/20 09:04 Dose: 0 mcg/kg/min, 0 mls/hr Documented by: Ceftriaxone Sodium 1 gm/ (Sodium Chloride) 50 mls @ 100 mls/hr IVPB Q24HR [facility] [place] Last Admin: 06/30/20 09:05 Dose: 100 mls/hr Documented by: Insulin Aspart (Insulin Aspart (Novolog) 100 Unit/Ml Vial) 0 unit SQ Q6H [facility]; Protocol Last Admin: 06/30/20 16:29 Dose: Not Given Documented by: Miscellaneous Information (Potassium Replacement Protocol 1 Each Misc) 1 each MISCELLANE DAILY PRN; Protocol PRN Reason: Per Protocol Miscellaneous Information (Magnesium Replacement Protocol 1 Each Misc) 1 each MISCELLANE DAILY PRN; Protocol PRN Reason: Per Protocol Naloxone HCl (Naloxone 0.4 Mg/Ml 1 Ml Vial) 0.2 mg IV Q2M PRN PRN Reason: Opioid Reversal Sertraline HCl (Sertraline 50 Mg Tab) 50 mg PO DAILY [facility] [place] Last Admin: 06/30/20 09:06 Dose: 50 mg Documented by: Sodium Chloride (Sodium Chloride 0.9% Flush 10 Ml Syringe) 10 ml IV Q4HR PRN PRN Reason: PICC Line Sodium Chloride (Sodium Chloride 0.9% Flush 10 Ml Syringe) 10 ml IV WEEKLY [facility] [place] Last Admin: 06/30/20 09:06 Dose: 10 ml Documented by: Sodium Chloride (Sodium Chloride 0.9% Flush 10 Ml Syringe) 20 ml IV Q4HR PRN PRN Reason: PICC Line Zinc Sulfate (Zinc Sulfate 220 Mg Cap) 220 mg PO DAILY [facility] [place] Last Admin: 06/30/20 09:06 Dose: 220 mg Documented by: Past medical history to include: Breast cancer with mastectomy, diabetes, hypertension, hyperlipidemia, anxiety Social history: Former smoker. Lives alone. Family history: Patient cannot tell Physical examination: VITAL SIGNS: 97.9, 112, 29, 135 x 59, 93% on the ventilator GENERAL: Sedated, tracheostomy tube on the ventilator LUNGS:[ Respiratory rate increased,. PSYCH: Unable to assess. Rest of the exam per pulmonary and nursing INVESTIGATIONS, reviewed in the clinical context: June 30: WBC 8.3 hemoglobin 9.1 and platelets 254 potassium 3.2 creatinine 0.41 Ultrasound Doppler upper extremity left: Superficial vein thrombosis identified. 2-D echo: A. fib. EF greater than 55% June 14: WBC 6.6 hemoglobin 12.5 platelets 370 sodium 154 potassium 4.3 creatinine 0.94 June 13: D-dimer 2.13 ABG pH 7.39 pCO2 45 pO2 68 CRP 356 troponin I 0.190 WBC 7.3 hemoglobin 11.8 platelets 357 ABG: PH 7.45 pCO2 32, pO2 79 Potassium 3.9 creatinine 1.0 blood glucose 321 Troponin I 0.104 CRP 334 EKG tracing personally reviewed by me-normal sinus rhythm, nonspecific ST segment changes Chest x-ray film personally reviewed by me-bilateral infiltrate severe CT angio chest: Bilateral diffuse patchy groundglass opacities and consolidation. CTA head and neck: Negative Computed tomography scan of the brain: Negative Assessment and plan: -Acute severe bilateral COVID 19 pneumonia, diagnosed 5 days before admission, with symptoms present 2-3 weeks prior to that.-Not improving IV dexamethasone-discontinued, subcu Lovenox, vitamin C vitamin D Pepcid zinc. Received ACTEMRA -Acute severe hypoxic respiratory failure, secondary to COVID 19 slow to respond Initially BiPAP-100%. Intubated June 18. On ventilator with FiO2 50% -Septic shock-improved norepinephrine/levo fed-stopped -Acute delirium and acute metabolic encephalopathy from COVID 19 pneumonia Follow closely. -Diabetes mellitus type 2 on oral hypoglycemic, uncontrolled with hyperglycemia secondary to steroids Hold off oral hypoglycemic. 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 Catapres patch 0.2 -Diabetic peripheral neuropathy Resume gabapentin when able to tolerate by mouth -Hyperlipidemia Resume Mevacor unable to tolerate by mouth -Patient underwent lumbar puncture. CSF benign. -Significant hypernatremia with hyperchloremia.-Corrected IV fluids -Paroxysmal atrial fibrillation with rapid ventricle [id number] rhythm Received amiodarone. Cardizem drip discontinued. Started xarelto-held -Superficial vein thrombosis of the left upper extremity. Patient on subcu Lovenox Patient getting up propofol holiday. Other medications to continue. 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
[2020-06-30 20:05] LABS: Glucose,Whole Blood 129 mg/dL (75-99)
[2020-06-30] MEDS: CLEVIDIPINE BUTYRATE 25 MG in EMPTY BAG 1 BAG IV SCH ×2 (20:09→22:39)
[2020-06-30] MEDS: ATORVASTATIN 10 MG TAB PO SCH (20:10)
[2020-06-30] MEDS: ACETAMINOPHEN SUPPOSITORY 650 MG SUPP RECTAL PRN (21:28)
[2020-06-30 23:53] LABS: Glucose,Whole Blood 204 mg/dL (75-99)
[2020-07-01] MEDS: INSULIN ASPART (NovoLOG) 100 UNIT/ML VIAL SQ SCH ×4 (00:19→19:05)
[2020-07-01 04:57] LABS: ABG Base Excess 5.6 mmol/L; ABG HCO3 30 mmol/L (21-25); ABG Oxygen Saturation 89.6 % (94-97); ABG PCO2 42 mmHg (35-45); ABG PH 7.45 (7.35-7.45); ABG TCO2 31 mmol/L (19-24)
[2020-07-01 04:57] LABS: Basophils % (A) 0 %; Eosinophils % (A) 0 %; HCT 31.5 % (34.0-46.0); HGB 10.1 gm/dL (11.4-16.0); Hypochromasia Slight; Lymphocytes # (A) 0.3 k/uL (1.0-4.8); Lymphocytes % (A) 3 %; MCH 30.5 pg (25.0-35.0); MCHC 32.2 g/dL (31.0-37.0); MCV 94.7 fL (80.0-100.0); Mean Platelet Volume 7.7; Monocytes # (A) 0.1 k/uL (0-1.0); Monocytes % (A) 1 %; Neutrophils # (A) 10.8 k/uL (1.3-7.7); Neutrophils % (A) 95 %; Platelet Count 306 k/uL (150-450); RBC 3.32 m/uL (3.80-5.40); RDW 15.6 % (11.5-15.5); WBC 11.3 k/uL (3.8-10.6)
[2020-07-01 05:23] LABS: ALT 39 U/L (4-34); AST 46 U/L (14-36); African American GFR (CKD) >90 (>60 ml/min/1.73 sqM); Albumin 2.5 g/dL (3.5-5.0); Alkaline Phosphatase 117 U/L (38-126); Anion Gap 7 mmol/L; Blood Urea Nitrogen 20 mg/dL (7-17); Calcium 9.3 mg/dL (8.4-10.2); Carbon Dioxide 29 mmol/L (22-30); Chloride 105 mmol/L (98-107); Creatine Kinase 76 U/L (30-135); Glucose 191 mg/dL (74-99); LDH 1246 U/L (313-618); Non-African American GFR(CKD) >90 (>60 ml/min/1.73 sqM); Potassium 3.3 mmol/L (3.5-5.1); Sodium 141 mmol/L (137-145); Total Bilirubin 0.5 mg/dL (0.2-1.3); Total Protein 5.3 g/dL (6.3-8.2)
[2020-07-01] MEDS: CLEVIDIPINE BUTYRATE 25 MG in EMPTY BAG 1 BAG IV SCH ×2 (05:58→10:53)
[2020-07-01] MEDS: HYDROmorphone 1 MG/ML 1 ML SYRINGE IVP PRN ×4 (05:59→22:40)
[2020-07-01 06:08] LABS: ABG PO2 59 mmHg (83-108); Allen Test Performed? no
[2020-07-01 06:36] LABS: Glucose,Whole Blood 223 mg/dL (75-99)
[2020-07-01 06:39] LABS: C Reactive Protein 37.7 mg/dL (<1.0)
[2020-07-01] MEDS: POTASSIUM BICARBONATE/CIT AC 20 MEQ TABLET.EFF NG-TUBE SCH ×4 (08:04→19:06)
--- NOTE | 2020-07-01 08:38 | XR ---
EXAMINATION TYPE: XR chest 1V DATE OF EXAM: 07/01/2020 COMPARISON: Chest x-ray 06/30/2020 HISTORY: Covid infection, abnormal chest x-ray TECHNIQUE: Single frontal view of the chest is obtained. FINDINGS: Bilateral airspace disease is present. Patient is rotated. Tracheostomy tube is in place. Left-sided PICC line is again noted. No evident pneumothorax or sizable effusion. IMPRESSION: Correlate for pneumonia
[2020-07-01] MEDS: FAMOTIDINE 20 MG TAB PO SCH ×2 (09:52→20:59)
[2020-07-01] MEDS: CHLORHEXIDINE GLUCONATE 15 ML CUP MUCOUS MEM SCH ×2 (09:52→20:58)
[2020-07-01] MEDS: ZINC SULFATE 220 MG CAP PO SCH (09:52)
[2020-07-01] MEDS: SERTRALINE 50 MG TAB PO SCH (09:52)
[2020-07-01] MEDS: CHOLECALCIFEROL 25 MCG (1000 IU) TABLET PO SCH (09:52)
[2020-07-01] MEDS: ASCORBIC ACID 500 MG TAB PO SCH (09:52)
[2020-07-01] MEDS: ENOXAPARIN 40 MG/0.4 ML SYRINGE SQ SCH ×2 (09:53→20:59)
--- NOTE | 2020-07-01 11:10 | P.PN ---
Subjective Progress Note Date: 07/01/20 Principal diagnosis: COVID 19 pneumonia. Patient was reevaluated today on 06/23/2020, remains in the ICU, intubated and mechanically ventilated. She is on assist control rate of 28 tidal volume is 400 FiO2 50% PEEP remains 15. I did cut down the PEEP to 12. ABG showed a pO2 of 61 pCO2 of 46 pH of 7.44. Patient remains on Versed and fentanyl, not requiring any Nimbex, Versed is 10 mg per hour, and fentanyl at 1.5 mcg/kg/h. She is on enteral feeding using vital hP and 59/59. Patient is hemodynamically stable, she is in sinus rhythm, peak airway pressure is 28, and static pressure is 17. Chest x-ray continues to show bilateral of disease consistent with COVID-19 pneumonia. Basic metabolic profile is normal renal profile is normal LDH is 1628. C-reactive protein is 2.7 BC is relatively normal. Spinal fluid cultures have been negative from a week ago Patient was reevaluated today on 06/24/2020, remains in the ICU, intubated and mechanically ventilated. He is on assist control rate of 28 tidal volumes 400 FiO2 50% PEEP of 14. ABG showed a pO2 of 58 pCO2 of 52 pH of 7.40. Patient is on fentanyl at 1.5 and Versed at 11 mg per hour. My plan is to give the patient a sedation holiday. And assess mental status. Although the patient remains on relatively high PEEP, she is not ready to wean, and I would recommend tracheostomy and PEG tube placement on this patient. Remains on vital Hp at 59 mL per hour. Surgical consultation for tracheostomy and PEG tube was initiated. WBC count is 9.9 hemoglobin is 10.4. Electrolytes are normal. Renal profile is normal. LDH remains high at 1572. C-reactive protein is 4.0. Both seem to be trending down. And showing improvement. Chest x-ray continues to show bilateral pneumonia. Not much of a filter changer the last few days. Patient was reevaluated today on 06/25/2020, remains in the ICU, intubated and me chanically ventilated. She is now on assist control rate of 28 tidal volume 400 FiO2 50% and PEEP at 14. Her ABG showed a pO2 of 61 pCO2 of 53 pH of 7.40. Hence no changes were made in the ventilator settings. The patient remains on Versed at 11 mg per hour, fentanyl at 1.5 mcg/kg/h, and IV fluid at KVO. Chest x-ray continues to show basically bibasilar infiltrates. Patient is scheduled to have PEG and tracheostomy tube placement today. Her enteral feeding is presently on hold. CBC is relatively normal. Electrolytes and renal profile are relatively normal. LDH is 1510, C-reactive protein is 7.5. Reevaluated today on 06/26/2020, patient remains in the ICU, intubated and mechanically ventilated. She is status post tracheostomy and PEG tube placement done yesterday on 06/25. Vent settings are assist control rate 28 tidal volume is 400 FiO2 50% PEEP of 14 ABG showed a pO2 of 60 pCO2 of 44 pH of 7.47. Patient remains on Versed and on fentanyl. My plan is to discontinue both tod ay, assess the patient's mental status off sedation, and decide whether she needs to be on that much sedation or not after waking up with the patient and assessing mental status. Tube feeds remain on hold at present because the patient had a PEG tube placed yesterday. She will be restarted back on vital hp at 59 mL per hour. Again the patient will receive today at least a brief sedation holiday. Patient is hemodynamically stable, chest x-ray continues to show minimal bibasilar infiltrates, consistent with COVID-19 pneumonia. Improved compared to her baseline. CBC is normal. Basic metabolic profile is normal. D-dimer is 29.03 LDH is 1368 C-reactive protein is 7.7. Patient was on Lovenox at 40 mg subcu twice a day, and I will go ahead and place her back on Lovenox, may eventually restart her back on Xarelto and discontinue Lovenox. Patient was reevaluated today on 06/27/2020, remains in the ICU, intubated and mechanically ventilated. Sedated but not requiring any paralytics. Patient is on assist control rate of 28 tidal volume is 400 FiO2 50% and PEEP of 14. Her ABG showed a pO2 of 62 pCO2 of 38 pH of 7.48. Patient is receiving vital Hb at 30 mL per hour. She is on fentanyl at 1 mcg/kg/m, she is also on Versed at 11 milligrams per hour. Her IV fluid is at KVO. And will increase the IV fluid today a bit. Attempts have been made over the last few days to cut down on sedation, however the patient gets extremely agitated, no appropriate responses have been noted on lower amounts of sedation. And will give the patient today another trial of lowering sedation and assessment of mental status. Previous attempts have failed in the last few days. But we will continue to try sedation holidays on a daily basis. At least the patient is not requiring any paralytics . Chest x-ray continues to show by basilar infiltrates. Not significantly changed over the last few days. LDH today is 1037 C-reactive protein is 7.0. Steadily improving considering the patient had LDH in the range of 3400 in the last few days ABC today is relatively normal hemoglobin is 9.7. Basic metabolic profile is normal with relatively normal renal profile. Progress note dated 06/28/2020. The patient was admitted on June 12. The patient was intubated on June 18. The patient underwent tracheostomy and PEG tube placement on June 25. She was diagnosed with COVID 19 pneumonia with hypoxemic respiratory failure. The patient is again seen in the intensive care unit room 254. She remains on the mechanical ventilator, on the volume assist control mode, rate 28, tidal volume 400, FiO2 50%, and PEEP of 14. Blood gases show a PaO2 of 64, PaCO2 of 40, and pH of 7.47. She remains on a Versed drip at 9 mg an hour, fentanyl drip at 1 mcg/kg/h, saline at 20 mL an hour, and vital high protein at 59 mL an hour, which is goal. We will DC the Versed and get the patient on propofol. We will attempt to get the patient off the fentanyl drip by using Dilaudid when necessary. Labs include a white count 8.2, hemoglobin 9.4, hematocrit 28.8, and platelet count 240,000. D-dimer is 12.34. Sodium 140, potassium 4.1, chlorides 106, CO2 31, anion gap 3, BUN 31, creatinine 0.48. Chest x-ray shows bilateral diffuse infiltrates. Tracheostomy tube is noted. Progress note dated 06/29/2020. This patient was admitted on June 12, and was intubated on June 18. The patient underwent tracheostomy and PEG tube placement on June 25. She was diagnosed with acute hypoxemic respiratory failure secondary to coronavirus pneumonia. Currently, the patient remains in the intensive care unit. She is in room 254. She is again seen today. She remains on the ventilator, volume assist control mode, rate 28, tidal volume 400, FiO2 50%, and PEEP of 14. Blood gases show pO2 of 57, pCO2 of 34, pH is 7.52. The patient remains on propofol at 70 mcg/kg/m, saline at 10 mL an hour, and vital high protein at goal, which is 40 mL an hour. Today, we will do a daily interruption of sedation. White count 10, hemoglobin 9.7, hematocrit 30.2, platelet count 2 58,000. D-dimer is 10.49. Sodium 137, potassium 3.9, chlorides 104, CO2 28, anion gap 5, BUN 28, creatinine 0.54. LDH is 952, C-reactive protein is 9. No chest x-ray today. Progress note dated 06/30/2020. 69-year-old female, admitted on June 12, intubated on June 18, and on June 25, underwent tracheostomy and PEG tube placement. She was diagnosed initially with acute hypoxemic respiratory failure secondary to coronavirus pneumonia. Currently, the patient remains on the volume assist control mode, rate 28, tidal volume 400, FiO2 50%, and PEEP of 14. The people be dropped from 14, down to 10. The patient's blood gases show a PaO2 of 66, PaCO2 36, and a pH 7.49. The patient remains on propofol at 75 mcg/kg/m, saline at 20 mL an hour, and vital high protein at 19 mL an hour, which is goal. She did have a daily interruption of sedation on June 29. She did fair. We are going to DC the long acting insulin and start her on NovoLog sliding scale, every 4 hours. In addition, we'll go ahead and start her on Rocephin, for a pending culture from the neck area/tracheostomy site. White count 8.3, hemoglobin 9.1, hematocrit 27.2, and platelet count are 254,000. Sodium 138, potassium 3.2, chlorides 106, CO2 27, anion gap 5, BUN 26, and creatinine 0.41. LDH is 909, and C-reactive protein is 23.4. Gram stain from the neck wound area shows group B strep, and 2 gram- negative bacilli. Chest x-ray shows bilateral infiltrates, worse on the left. Progress note dated 07/01/2020. 69-year-old female, admitted on June 12, intubated on June 18, and on June 25, underwent tracheostomy and PEG tube placement. The patient was initially diagnosis with acute hypoxemic respiratory failure secondary to coronavirus pneumonia. The patient remains on the mechanical ventilator. Ventilator settings include a volume assist control mode, rate 28, tidal volume 400, FiO2 60%, and PEEP of 10. Blood gases show a PaO2 of 59, pCO2 42, and pH 7.45. The patient's on propofol at 5 mcg/kg/m, saline at 20 mL an hour, 5 mg an hour, and vital high protein at goal, which is 19 mL an hour. Because of dysynchrony with the ventilator, the patient will need a higher dose of propofol. White count is 11.3, hemoglobin 10.1, hematocrit 31.5, and platelet count 306,000. Sodium 141, potassium 3.3, chlorides 105, CO2 29, anion gap 7, BUN 20, creatinine 0.32. LDH is 1246. C-reactive protein is 37.7. Chest x-ray shows diffuse bilateral airspace disease, which is unchanged. Objective - Vital Signs Vital signs: Vital Signs Temp 99.4 F 07/01/20 08:00 Pulse 112 H 07/01/20 10:00 Resp 39 H 07/01/20 10:00 BP 134/68 07/01/20 09:00 Pulse Ox 91 L 07/01/20 10:00 Intake & Output 06/30/20 07/01/20 07/01/20 18:59 06:59 18:59 Intake Total 732.327 669.967 312.597 Output Total 1065 640 155 Balance -332.673 29.967 157.597 Weight 86.8 kg Intake: IV 276 276 92 .9NS pressure bag A line 36 36 12 0.9 Normal Saline @ KVO 240 240 80 Intake, IV Titration 138.327 75.967 114.597 Amount Clevidipine Butyrate 25 75.967 49.167 mg In Empty Bag 1 bag @ 1 MG/HR 2 mls/hr IV .Q24H [facility] Rx#:[id number] cefTRIAXone 1 gm In 50 Sodium Chloride 0.9% 50 ml @ 100 mls/hr IVPB Q24HR [facility] Rx#:[id number] propofoL 1,000 mg In 88.327 0 65.430 Empty Bag 1 bag @ Titrate IV .Q0M [facility] Rx#: [id number] Tube Feeding 228 228 76 Other 90 90 30 Output: Urine 1065 640 155 Other: Voiding Method Indwelling Catheter Indwelling Catheter # Bowel Movements 1 ABP, PAP, CO, CI - Last Documented Arterial Blood Pressure 104/50 - Exam The patient is a bit dyssynchronous with the ventilator, and has a midline tracheostomy tube. Saturations are 91%. HEENT examination is grossly unremarkable. Neck supple. Full range of motion. No adenopathy thyromegaly or neck vein d istention. Cardiovascular examination reveals regular rhythm rate. S1-S2 normal. No S3 or S4. No discernible murmur noted. Heart rate is 112 bpm. Heart sounds are distant. Lungs reveal coarse bilateral rhonchi, and crackles. No wheezes. Breath sounds equal bilaterally. Breath sounds are diminished bilaterally. Abdomen soft bowel sounds are heard. No masses or tenderness. Extremities are intact. No cyanosis clubbing or edema. Skin is without rash or lesion. Neurologic examination could not be assessed as the patient's currently sedated. - Labs CBC & Chem 7: 07/01/20 04:20 07/01/20 04:20 Labs: Abnormal Lab Results - Last 24 Hours (Table) 06/30/20 06/30/20 06/30/20 Range/Units 12:16 16:22 20:04 WBC (3.8-10.6) k/uL RBC (3.80-5.40) m/uL Hgb (11.4-16.0) gm/dL Hct (34.0-46.0) % RDW (11.5-15.5) % Neutrophils # (1.3-7.7) k/uL Lymphocytes # (1.0-4.8) k/uL ABG pO2 (83-108) mmHg ABG HCO3 (21-25) mmol/L ABG Total CO2 (19-24) mmol/L ABG O2 Saturation (94-97) % Potassium (3.5-5.1) mmol/L BUN (7-17) mg/dL Creatinine (0.52-1.04) mg/dL Glucose (74-99) mg/dL POC Glucose (mg/dL) 106 H 116 H 129 H (75-99) mg/dL AST (14-36) U/L ALT (4-34) U/L Lactate Dehydrogenase (313-618) U/L C-Reactive Protein (<1.0) mg/dL Total Protein (6.3-8.2) g/dL Albumin (3.5-5.0) g/dL 06/30/20 07/01/20 07/01/20 Range/Units 23:51 04:20 04:20 WBC 11.3 H (3.8-10.6) k/uL RBC 3.32 L (3.80-5.40) m/uL Hgb 10.1 L (11.4-16.0) gm/dL Hct 31.5 L (34.0-46.0) % RDW 15.6 H (11.5-15.5) % Neutrophils # 10.8 H (1.3-7.7) k/uL Lymphocytes # 0.3 L (1.0-4.8) k/uL ABG pO2 (83-108) mmHg ABG HCO3 (21-25) mmol/L ABG Total CO2 (19-24) mmol/L ABG O2 Saturation (94-97) % Potassium 3.3 L (3.5-5.1) mmol/L BUN 20 H (7-17) mg/dL Creatinine 0.32 L (0.52-1.04) mg/dL Glucose 191 H (74-99) mg/dL POC Glucose (mg/dL) 204 H (75-99) mg/dL AST 46 H (14-36) U/L ALT 39 H (4-34) U/L Lactate Dehydrogenase 1246 H (313-618) U/L C-Reactive Protein 37.7 H (<1.0) mg/dL Total Protein 5.3 L (6.3-8.2) g/dL Albumin 2.5 L (3.5-5.0) g/dL 07/01/20 07/01/20 Range/Units 04:56 06:34 WBC (3.8-10.6) k/uL RBC (3.80-5.40) m/uL Hgb (11.4-16.0) gm/dL Hct (34.0-46.0) % RDW (11.5-15.5) % Neutrophils # (1.3-7.7) k/uL Lymphocytes # (1.0-4.8) k/uL ABG pO2 59 L* (83-108) mmHg ABG HCO3 30 H (21-25) mmol/L ABG Total CO2 31 H (19-24) mmol/L ABG O2 Saturation 89.6 L (94-97) % Potassium (3.5-5.1) mmol/L BUN (7-17) mg/dL Creatinine (0.52-1.04) mg/dL Glucose (74-99) mg/dL POC Glucose (mg/dL) 223 H (75-99) mg/dL AST (14-36) U/L ALT (4-34) U/L Lactate Dehydrogenase (313-618) U/L C-Reactive Protein (<1.0) mg/dL Total Protein (6.3-8.2) g/dL Albumin (3.5-5.0) g/dL Microbiology - Last 24 Hours (Table) 06/28/20 15:30 Gram Stain - Final Neck Wound Culture - Final Strep agalactiae - (group b) Proteus mirabilis Klebsiella pneumoniae Assessment and Plan Assessment: Acute hypoxemic respiratory failure secondary to COVID 19 pneumonitis/pneumonia, with intubation on June 18, and tracheostomy/PEG tube placement on June 25. New onset atrial fibrillation with RVR. Elevated inflammatory marker secondary to COVID infection. Culture adjacent to the tracheostomy site shows evidence of group B strep, Proteus mirabilis, and Klebsiella pneumoniae. History of CVA and aphasia. History of essential hypertension. History of type 2 diabetes mellitus. History of hyperlipidemia. Status post right-sided mastectomy for breast cancer. Previous history of tobacco use. Hyperlipidemia. Plan: Plan dated 06/28/2020. In light of the recent article in the Journal of Critical Care, which compared Versed versus propofol for critically ill patient's in the intensive care unit, the patient's Versed will be discontinued in favor of propofol. In addition, we will attempt to get the patient off of fentanyl by using Dilaudid when necessary. Additional recommendations and suggestions are forthcoming. Follow patient and make recommendations were appropriate. Overall prognosis remains guarded. She might be a candidate for long-term acute care, if we can get her off the propofol and fentanyl eventually. Plan dated 06/29/2020. The patient's Versed was discontinued yesterday, in favor of propofol. We will attempt to wean that today. In addition, the patient will have a daily interruption of sedation today. The patient would be a great candidate for a long-term acute care facility, once we get her off the sedative. We will continue to follow her very closely. She is to get Dilaudid when necessary. Additional recommendations and suggestions are forthcoming. Prognosis is guarded. We will continue to follow along, and make recommendations where appropriate. Plan dated 06/30/2020. The patient's PEEP will be dropped down to 10, from her current PEEP level of 14. Her gases are reviewed. She remains on propofol at 75 mcg/kg/m. The patient will have another daily interruption of sedation today. In addition, we'll DC all long-acting insulin, and put her on NovoLog sliding scale, every 4 hours. Finally, we start Rocephin, for the pending abnormal culture data from the Gram stain from the tracheostomy site. Additional recommendations and suggestions are forthcoming. We will attempt to get her off the propofol, so that we can get her transferred to long-term acute care. Additional recommendations and suggestions are forthcoming. Prognosis is poor. Plan dated 07/01/2020. The patient's propofol will need to be increased a bit. The patient remains on Cleveprex for blood pressure control. She is getting nutrition at goal. The culture adjacent to the tracheostomy site showed evidence of group B strep, Klebsiella, and Proteus. All are sensitive to ceftriaxone. The patient will continue to be maintained on this antibiotic for the time being. The rest of medications are reviewed and are appropriate. Prognosis is guarded. The nurse will call the family members to give them an update, and determine whether or not there is a change in CODE STATUS. Time with Patient: Greater than 30
[2020-07-01 11:56] LABS: Glucose,Whole Blood 257 mg/dL (75-99)
--- NOTE | 2020-07-01 14:46 | P.PN ---
Subjective Progress Note Date: 07/01/20 CHIEF COMPLAINT: COVID-19 pneumonia HISTORY OF PRESENT ILLNESS: Patient remains in the ICU on mechanical ventilation. She is hospitalized for COVID-19 pneumonia with hypoxic respiratory failure. She is status post tracheostomy and PEG tube placement. She is tolerating tube feeds. Patient had drainage from the tracheostomy site. Patient have a temp of 101.1 yesterday. Had a tachycardic heart rate 120 white count is up at 11.3 drainage culture from trach site grew strep agalactiae, Proteus mirabilis and Klebsiella pneumoniae PHYSICAL EXAM: VITAL SIGNS: Reviewed. GENERAL: Well-developed in no acute distress. HEENT: Head is atraumatic, normocephalic. Tracheostomy site with drainage ABDOMEN: Soft. Nondistended. Nontender. PEG tube site clean dry and intact NEUROLOGIC: Intubated and sedated ASSESSMENT: 1. Acute hypoxic respiratory failure due to COVID-19 pneumonia. Status post tr acheostomy placement 2. Severe protein calorie malnutrition status post PEG tube placement 3. Infection at tracheostomy site PLAN: -Continue ICU management -Continue supportive care -Continue PEG tube feedings -Continue antibiotics for infection at tracheostomy site Physician Tan Room Supervisor note has been reviewed by physician. Signing provider agrees with the documented findings, assessment, and plan of care. Objective - Vital Signs Vital signs: Vital Signs Temp 98.9 F 07/01/20 12:00 Pulse 95 07/01/20 14:00 Resp 30 H 07/01/20 14:00 BP 105/60 07/01/20 14:00 Pulse Ox 95 07/01/20 14:00 Intake & Output 06/30/20 07/01/20 07/01/20 18:59 06:59 18:59 Intake Total 732.327 669.967 675.008 Output Total 1065 640 240 Balance -332.673 29.967 435.008 Weight 86.8 kg Intake: IV 276 276 184 .9NS pressure bag A line 36 36 24 0.9 Normal Saline @ KVO 240 240 160 Intake, IV Titration 138.327 75.967 279.008 Amount Clevidipine Butyrate 25 75.967 52.100 mg In Empty Bag 1 bag @ 1 MG/HR 2 mls/hr IV .Q24H [facility] Rx#:[id number] cefTRIAXone 1 gm In 50 Sodium Chloride 0.9% 50 ml @ 100 mls/hr IVPB Q24HR [facility] Rx#:[id number] fentaNYL (PF). 1,000 mcg 100 In Sodium Chloride 0.9% 80 ml @ Per Protocol IV . Q0M [facility] Rx#:[id number] propofoL 1,000 mg In 88.327 0 126.908 Empty Bag 1 bag @ Titrate IV .Q0M [facility] Rx#: [id number] Tube Feeding 228 228 152 Other 90 90 60 Output: Urine 1065 640 240 Other: Voiding Method Indwelling Catheter Indwelling Catheter Indwelling Catheter # Bowel Movements 1 ABP, PAP, CO, CI - Last Documented Arterial Blood Pressure 106/50 - Labs CBC & Chem 7: 07/01/20 04:20 07/01/20 04:20 Labs: Abnormal Lab Results - Last 24 Hours (Table) 06/30/20 06/30/20 06/30/20 Range/Units 16:22 20:04 23:51 WBC (3.8-10.6) k/uL RBC (3.80-5.40) m/uL Hgb (11.4-16.0) gm/dL Hct (34.0-46.0) % RDW (11.5-15.5) % Neutrophils # (1.3-7.7) k/uL Lymphocytes # (1.0-4.8) k/uL ABG pO2 (83-108) mmHg ABG HCO3 (21-25) mmol/L ABG Total CO2 (19-24) mmol/L ABG O2 Saturation (94-97) % Potassium (3.5-5.1) mmol/L BUN (7-17) mg/dL Creatinine (0.52-1.04) mg/dL Glucose (74-99) mg/dL POC Glucose (mg/dL) 116 H 129 H 204 H (75-99) mg/dL AST (14-36) U/L ALT (4-34) U/L Lactate Dehydrogenase (313-618) U/L C-Reactive Protein (<1.0) mg/dL Total Protein (6.3-8.2) g/dL Albumin (3.5-5.0) g/dL 07/01/20 07/01/20 07/01/20 Range/Units 04:20 04:20 04:56 WBC 11.3 H (3.8-10.6) k/uL RBC 3.32 L (3.80-5.40) m/uL Hgb 10.1 L (11.4-16.0) gm/dL Hct 31.5 L (34.0-46.0) % RDW 15.6 H (11.5-15.5) % Neutrophils # 10.8 H (1.3-7.7) k/uL Lymphocytes # 0.3 L (1.0-4.8) k/uL ABG pO2 59 L* (83-108) mmHg ABG HCO3 30 H (21-25) mmol/L ABG Total CO2 31 H (19-24) mmol/L ABG O2 Saturation 89.6 L (94-97) % Potassium 3.3 L (3.5-5.1) mmol/L BUN 20 H (7-17) mg/dL Creatinine 0.32 L (0.52-1.04) mg/dL Glucose 191 H (74-99) mg/dL POC Glucose (mg/dL) (75-99) mg/dL AST 46 H (14-36) U/L ALT 39 H (4-34) U/L Lactate Dehydrogenase 1246 H (313-618) U/L C-Reactive Protein 37.7 H (<1.0) mg/dL Total Protein 5.3 L (6.3-8.2) g/dL Albumin 2.5 L (3.5-5.0) g/dL 07/01/20 07/01/20 Range/Units 06:34 11:53 WBC (3.8-10.6) k/uL RBC (3.80-5.40) m/uL Hgb (11.4-16.0) gm/dL Hct (34.0-46.0) % RDW (11.5-15.5) % Neutrophils # (1.3-7.7) k/uL Lymphocytes # (1.0-4.8) k/uL ABG pO2 (83-108) mmHg ABG HCO3 (21-25) mmol/L ABG Total CO2 (19-24) mmol/L ABG O2 Saturation (94-97) % Potassium (3.5-5.1) mmol/L BUN (7-17) mg/dL Creatinine (0.52-1.04) mg/dL Glucose (74-99) mg/dL POC Glucose (mg/dL) 223 H 257 H (75-99) mg/dL AST (14-36) U/L ALT (4-34) U/L Lactate Dehydrogenase (313-618) U/L C-Reactive Protein (<1.0) mg/dL Total Protein (6.3-8.2) g/dL Albumin (3.5-5.0) g/dL Microbiology - Last 24 Hours (Table) 06/28/20 15:30 Gram Stain - Final Neck Wound Culture - Final Strep agalactiae - (group b) Proteus mirabilis Klebsiella pneumoniae
--- NOTE | 2020-07-01 16:34 | P.PN ---
Progress Note - Text Progress Note Date: 07/01/20 Chief Complaint: Short of breath History of presenting complaint: This is a 69-year-old patient who follows with Dr. blake . Patient was last seen in the ER about 5 days ago. She then had an having respiratory symptoms including cough for about 2 or 3 weeks prior to that. On this presentation is patient is altered sense. She was last seen normal at home on Sunday. EMS was called out and they found the patient to be hypoxic with 46%. Patient was ventilated with a bag valve and pulse oxygenation improved. He was placed on a nonrebreather and brought here. Here patient's problem of BiPAP. And is somewhat delirious. Not able to give any history. Patient chronic stable medical conditions include diabetes, hypertension, hyperlipidemia, history of breast cancer with right mastectomy. No family members currently present. Admitted with acute severe bilateral COVID 19 pneumonia, acute severe hypoxic respiratory failure, acute metabolic encephalopathy, with delirium. Patient placed on oxygen. Decadron. Lovenox. Consultation to neurology, pulmonary. Lumbar puncture/CSF unremarkable. Patient was placed on BiPAP. Progression of respiratory status patient intubated on June 18. Run of Condition One with rapid ventricular rate-sinus rhythm. Today-ICU: Ventilator: FiO2 60 and a PEEP of 10. Telemetry: Sinus rhythm. IV propofol. Patient has a tracheostomy and a PEG tube. 2 feeding at 19 mL an hour. Review of systems: Patient on the ventilator Active Medications Acetaminophen (Acetaminophen Suppository 650 Mg Supp) 650 mg RECTAL Q4HR PRN PRN Reason: Fever And/ Or Mild Pain Last Admin: 06/30/20 21:28 Dose: 650 mg Documented by: Ascorbic Acid (Ascorbic Acid 500 Mg Tab) 1,000 mg PO DAILY [facility] Last Admin: 07/01/20 09:52 Dose: 1,000 mg Documented by: Atorvastatin Calcium (Atorvastatin 10 Mg Tab) 10 mg PO HS [facility] Last Admin: 06/30/20 20:10 Dose: 10 mg Documented by: Chlorhexidine Gluconate (Chlorhexidine Gluconate 15 Ml Cup) 15 ml MUCOUS MEM BID [facility] Last Admin: 07/01/20 09:52 Dose: 15 ml Documented by: Cholecalciferol (Cholecalciferol 25 Mcg (1000 Iu) Tablet) 25 mcg PO DAILY [facility] Last Admin: 07/01/20 09:52 Dose: 25 mcg Documented by: Enoxaparin Sodium (Enoxaparin 40 Mg/0.4 Ml Syringe) 40 mg SQ BID [facility] Last Admin: 07/01/20 09:53 Dose: 40 mg Documented by: Famotidine (Famotidine 20 Mg Tab) 20 mg PO Q12HR [facility] Last Admin: 07/01/20 09:52 Dose: 20 mg Documented by: Hydromorphone HCl (Hydromorphone 1 Mg/Ml 1 Ml Syringe) 1 mg IVP Q4HR PRN PRN Reason: Pain Last Admin: 07/01/20 11:07 Dose: 1 mg Documented by: Fentanyl Citrate 1,000 mcg/ (Sodium Chloride) 100 mls @ 0 mls/hr IV .Q0M [facility]; Protocol Last Titration: 07/01/20 08:00 Dose: Infused Documented by: Propofol 1,000 mg/ IV Solution 100 mls @ 0 mls/hr IV .Q0M [facility]; Protocol Last Titration: 07/01/20 13:03 Dose: 40 mcg/kg/min, 20.832 mls/hr Documented by: Ceftriaxone Sodium 1 gm/ (Sodium Chloride) 50 mls @ 100 mls/hr IVPB Q24HR [facility] Last Admin: 07/01/20 09:52 Dose: 100 mls/hr Documented by: Clevidipine 25 mg/ IV Solution 50 mls @ 2 mls/hr IV .Q24H [facility]; Protocol Last Titration: 07/01/20 11:15 Dose: 0 mg/hr, 0 mls/hr Documented by: Insulin Aspart (Insulin Aspart (Novolog) 100 Unit/Ml Vial) 0 unit SQ Q6H [facility]; Protocol Last Admin: 07/01/20 12:05 Dose: 4 unit Documented by: Miscellaneous Information (Potassium Replacement Protocol 1 Each Misc) 1 each MISCELLANE DAILY PRN; Protocol PRN Reason: Per Protocol Miscellaneous Information (Magnesium Replacement Protocol 1 Each Misc) 1 each MISCELLANE DAILY PRN; Protocol PRN Reason: Per Protocol Naloxone HCl (Naloxone 0.4 Mg/Ml 1 Ml Vial) 0.2 mg IV Q2M PRN PRN Reason: Opioid Reversal Sertraline HCl (Sertraline 50 Mg Tab) 50 mg PO DAILY [facility] Last Admin: 07/01/20 09:52 Dose: 50 mg Documented by: Sodium Chloride (Sodium Chloride 0.9% Flush 10 Ml Syringe) 10 ml IV Q4HR PRN PRN Reason: PICC Line Sodium Chloride (Sodium Chloride 0.9% Flush 10 Ml Syringe) 10 ml IV WEEKLY [facility] Last Admin: 06/30/20 09:06 Dose: 10 ml Documented by: Sodium Chloride (Sodium Chloride 0.9% Flush 10 Ml Syringe) 20 ml IV Q4HR PRN PRN Reason: PICC Line Zinc Sulfate (Zinc Sulfate 220 Mg Cap) 220 mg PO DAILY [facility] Last Admin: 07/01/20 09:52 Dose: 220 mg Documented by: Past medical history to include: Breast cancer with mastectomy, diabetes, hypertension, hyperlipidemia, anxiety Social history: Former smoker. Lives alone. Family history: Patient cannot tell Physical examination: VITAL SIGNS: 98.9, 108, 32, 107/55, 98% on the ventilator LUNGS:[ Respiratory rate increased,. PSYCH: Unable to assess. Rest of the exam per pulmonary and nursing INVESTIGATIONS, reviewed in the clinical context: July 01: WBC 11.3 hemoglobin 10.1 platelets 306 potassium 3.3 creatinine 0.3 to CRP 37.7 June 30: WBC 8.3 hemoglobin 9.1 and platelets 254 potassium 3.2 creatinine 0.41 Ultrasound Doppler upper extremity left: Superficial vein thrombosis identified. 2-D echo: A. fib. EF greater than 55% June 14: WBC 6.6 hemoglobin 12.5 platelets 370 sodium 154 potassium 4.3 creatinine 0.94 June 13: D-dimer 2.13 ABG pH 7.39 pCO2 45 pO2 68 CRP 356 troponin I 0.190 WBC 7.3 hemoglobin 11.8 platelets 357 ABG: PH 7.45 pCO2 32, pO2 79 Potassium 3.9 creatinine 1.0 blood glucose 321 Troponin I 0.104 CRP 334 EKG tracing personally reviewed by me-normal sinus rhythm, nonspecific ST segment changes Chest x-ray film personally reviewed by me-bilateral infiltrate severe CT angio chest: Bilateral diffuse patchy groundglass opacities and consolidation. CTA head and neck: Negative Computed tomography scan of the brain: Negative Assessment and plan: -Acute severe bilateral COVID 19 pneumonia, diagnosed 5 days before admission, with symptoms present 2-3 weeks prior to that.-Not improving IV dexamethasone-discontinued, subcu Lovenox, vitamin C vitamin D Pepcid zinc. Received ACTEMRA -Acute severe hypoxic respiratory failure, secondary to COVID 19 slow to respond Initially BiPAP-100%. Intubated June 18. On ventilator with FiO2 60% -Septic shock-improved norepinephrine/levo fed-stopped -Acute delirium and acute metabolic encephalopathy from COVID 19 pneumonia Follow closely. -Diabetes mellitus type 2 on oral hypoglycemic, uncontrolled with hyperglycemia secondary to steroids Hold off oral hypoglycemic. On insulin drip-tire changer to Levemir-follow Accu- Cheks -Essential hypertension Not able to tolerate oral medications. Catapres patch 0.2 -Diabetic peripheral neuropathy Resume gabapentin when able to tolerate by mouth -Hyperlipidemia Resume Mevacor unable to tolerate by mouth -Patient underwent lumbar puncture. CSF benign. -Significant hypernatremia with hyperchloremia.-Corrected IV fluids -Paroxysmal atrial fibrillation with rapid ventricle [id number] rhythm Received amiodarone. Cardizem drip discontinued. Started xarelto-held -Superficial vein thrombosis of the left upper extremity. Patient on subcu Lovenox Continue current medication treatment plan. Remains critical
[2020-07-01 18:08] LABS: Glucose,Whole Blood 198 mg/dL (75-99)
[2020-07-01] MEDS: ATORVASTATIN 10 MG TAB PO SCH (20:59)
[2020-07-01 23:12] LABS: Glucose,Whole Blood 182 mg/dL (75-99)
[2020-07-02] MEDS: INSULIN ASPART (NovoLOG) 100 UNIT/ML VIAL SQ SCH ×5 (00:30→23:30)
[2020-07-02 05:07] LABS: ABG Base Excess 9.9 mmol/L; ABG HCO3 33 mmol/L (21-25); ABG Oxygen Saturation 87.5 % (94-97); ABG PCO2 40 mmHg (35-45); ABG PH 7.52 (7.35-7.45); ABG TCO2 34 mmol/L (19-24)
[2020-07-02 05:43] LABS: Basophils % (A) 0 %; Eosinophils # (A) 0.1 k/uL (0-0.7); Eosinophils % (A) 1 %; HCT 26.9 % (34.0-46.0); HGB 8.8 gm/dL (11.4-16.0); Hypochromasia Moderate; Lymphocytes # (A) 0.5 k/uL (1.0-4.8); Lymphocytes % (A) 6 %; MCH 30.5 pg (25.0-35.0); MCHC 32.5 g/dL (31.0-37.0); MCV 93.9 fL (80.0-100.0); Mean Platelet Volume 7.9; Monocytes # (A) 0.2 k/uL (0-1.0); Monocytes % (A) 2 %; Neutrophils # (A) 7.7 k/uL (1.3-7.7); Neutrophils % (A) 90 %; Platelet Count 288 k/uL (150-450); RBC 2.87 m/uL (3.80-5.40); RDW 15.4 % (11.5-15.5); WBC 8.6 k/uL (3.8-10.6)
[2020-07-02 05:43] LABS: ABG PO2 51 mmHg (83-108); Allen Test Performed? no
[2020-07-02 06:01] LABS: ALT 33 U/L (4-34); AST 36 U/L (14-36); African American GFR (CKD) >90 (>60 ml/min/1.73 sqM); Albumin 2.2 g/dL (3.5-5.0); Alkaline Phosphatase 88 U/L (38-126); Anion Gap 4 mmol/L; Blood Urea Nitrogen 24 mg/dL (7-17); Calcium 9.2 mg/dL (8.4-10.2); Carbon Dioxide 32 mmol/L (22-30); Chloride 104 mmol/L (98-107); Creatine Kinase 32 U/L (30-135); Glucose 174 mg/dL (74-99); LDH 820 U/L (313-618); Non-African American GFR(CKD) >90 (>60 ml/min/1.73 sqM); Potassium 3.8 mmol/L (3.5-5.1); Sodium 140 mmol/L (137-145); Total Bilirubin 0.4 mg/dL (0.2-1.3); Total Protein 4.9 g/dL (6.3-8.2)
[2020-07-02 06:08] LABS: Glucose,Whole Blood 181 mg/dL (75-99)
[2020-07-02] MEDS: HYDROmorphone 1 MG/ML 1 ML SYRINGE IVP PRN (06:50)
[2020-07-02] MEDS ORDERED: POTASSIUM BICARBONATE/CIT AC 20 MEQ TABLET.EFF NG-TUBE SCH (07:00)
[2020-07-02 07:26] LABS: C Reactive Protein 49.9 mg/dL (<1.0)
[2020-07-02] MEDS: CHOLECALCIFEROL 25 MCG (1000 IU) TABLET PO SCH (09:02)
[2020-07-02] MEDS: ENOXAPARIN 40 MG/0.4 ML SYRINGE SQ SCH ×2 (09:02→20:24)
[2020-07-02] MEDS: FAMOTIDINE 20 MG TAB PO SCH ×2 (09:02→20:25)
[2020-07-02] MEDS: SERTRALINE 50 MG TAB PO SCH (09:02)
[2020-07-02] MEDS: ZINC SULFATE 220 MG CAP PO SCH (09:02)
[2020-07-02] MEDS: ASCORBIC ACID 500 MG TAB PO SCH (09:02)
--- NOTE | 2020-07-02 10:15 | P.PN ---
Subjective Progress Note Date: 07/02/20 Principal diagnosis: COVID 19 pneumonia. Patient was reevaluated today on 06/23/2020, remains in the ICU, intubated and mechanically ventilated. She is on assist control rate of 28 tidal volume is 400 FiO2 50% PEEP remains 15. I did cut down the PEEP to 12. ABG showed a pO2 of 61 pCO2 of 46 pH of 7.44. Patient remains on Versed and fentanyl, not requiring any Nimbex, Versed is 10 mg per hour, and fentanyl at 1.5 mcg/kg/h. She is on enteral feeding using vital hP and 59/59. Patient is hemodynamically stable, she is in sinus rhythm, peak airway pressure is 28, and static pressure is 17. Chest x-ray continues to show bilateral of disease consistent with COVID-19 pneumonia. Basic metabolic profile is normal renal profile is normal LDH is 1628. C-reactive protein is 2.7 BC is relatively normal. Spinal fluid cultures have been negative from a week ago Patient was reevaluated today on 06/24/2020, remains in the ICU, intubated and mechanically ventilated. He is on assist control rate of 28 tidal volumes 400 FiO2 50% PEEP of 14. ABG showed a pO2 of 58 pCO2 of 52 pH of 7.40. Patient is on fentanyl at 1.5 and Versed at 11 mg per hour. My plan is to give the patient a sedation holiday. And assess mental status. Although the patient remains on relatively high PEEP, she is not ready to wean, and I would recommend tracheostomy and PEG tube placement on this patient. Remains on vital Hp at 59 mL per hour. Surgical consultation for tracheostomy and PEG tube was initiated. WBC count is 9.9 hemoglobin is 10.4. Electrolytes are normal. Renal profile is normal. LDH remains high at 1572. C-reactive protein is 4.0. Both seem to be trending down. And showing improvement. Chest x-ray continues to show bilateral pneumonia. 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 Patient was reevaluated today on 06/25/2020, remains in the ICU, intubated and me chanically ventilated. She is now on assist control rate of 28 tidal volume 400 FiO2 50% and PEEP at 14. Her ABG showed a pO2 of 61 pCO2 of 53 pH of 7.40. Hence no changes were made in the ventilator settings. The patient remains on Versed at 11 mg per hour, fentanyl at 1.5 mcg/kg/h, and IV fluid at KVO. Chest x-ray continues to show basically bibasilar infiltrates. Patient is scheduled to have PEG and tracheostomy tube placement today. Her enteral feeding is presently on hold. CBC is relatively normal. Electrolytes and renal profile are relatively normal. LDH is 1510, C-reactive protein is 7.5. Reevaluated today on 06/26/2020, patient remains in the ICU, intubated and mechanically ventilated. She is status post tracheostomy and PEG tube placement done yesterday on 06/25. Vent settings are assist control rate 28 tidal volume is 400 FiO2 50% PEEP of 14 ABG showed a pO2 of 60 pCO2 of 44 pH of 7.47. Patient remains on Versed and on fentanyl. My plan is to discontinue both tod ay, assess the patient's mental status off sedation, and decide whether she needs to be on that much sedation or not after waking up with the patient and assessing mental status. Tube feeds remain on hold at present because the patient had a PEG tube placed yesterday. She will be restarted back on vital hp at 59 mL per hour. Again the patient will receive today at least a brief sedation holiday. Patient is hemodynamically stable, chest x-ray continues to show minimal bibasilar infiltrates, consistent with COVID-19 pneumonia. Improved compared to her baseline. CBC is normal. Basic metabolic profile is normal. D-dimer is 29.03 LDH is 1368 C-reactive protein is 7.7. Patient was on Lovenox at 40 mg subcu twice a day, and I will go ahead and place her back on Lovenox, may eventually restart her back on Xarelto and discontinue Lovenox. Patient was reevaluated today on 06/27/2020, remains in the ICU, intubated and mechanically ventilated. Sedated but not requiring any paralytics. Patient is on assist control rate of 28 tidal volume is 400 FiO2 50% and PEEP of 14. Her ABG showed a pO2 of 62 pCO2 of 38 pH of 7.48. Patient is receiving vital Hb at 30 mL per hour. She is on fentanyl at 1 mcg/kg/m, she is also on Versed at 11 milligrams per hour. Her IV fluid is at KVO. And will increase the IV fluid today a bit. Attempts have been made over the last few days to cut down on sedation, however the patient gets extremely agitated, no appropriate responses have been noted on lower amounts of sedation. And will give the patient today another trial of lowering sedation and assessment of mental status. Previous attempts have failed in the last few days. But we will continue to try sedation holidays on a daily basis. At least the patient is not requiring any paralytics . Chest x-ray continues to show by basilar infiltrates. Not significantly changed over the last few days. LDH today is 1037 C-reactive protein is 7.0. Steadily improving considering the patient had LDH in the range of 3400 in the last few days ABC today is relatively normal hemoglobin is 9.7. Basic metabolic profile is normal with relatively normal renal profile. Progress note dated 06/28/2020. The patient was admitted on June 12. The patient was intubated on June 18. The patient underwent tracheostomy and PEG tube placement on June 25. She was diagnosed with COVID 19 pneumonia with hypoxemic respiratory failure. The patient is again seen in the intensive care unit room 254. She remains on the mechanical ventilator, on the volume assist control mode, rate 28, tidal volume 400, FiO2 50%, and PEEP of 14. Blood gases show a PaO2 of 64, PaCO2 of 40, and pH of 7.47. She remains on a Versed drip at 9 mg an hour, fentanyl drip at 1 mcg/kg/h, saline at 20 mL an hour, and vital high protein at 59 mL an hour, which is goal. We will DC the Versed and get the patient on propofol. We will attempt to get the patient off the fentanyl drip by using Dilaudid when necessary. Labs include a white count 8.2, hemoglobin 9.4, hematocrit 28.8, and platelet count 240,000. D-dimer is 12.34. Sodium 140, potassium 4.1, chlorides 106, CO2 31, anion gap 3, BUN 31, creatinine 0.48. Chest x-ray shows bilateral diffuse infiltrates. Tracheostomy tube is noted. Progress note dated 06/29/2020. This patient was admitted on June 12, and was intubated on June 18. The patient underwent tracheostomy and PEG tube placement on June 25. She was diagnosed with acute hypoxemic respiratory failure secondary to coronavirus pneumonia. Currently, the patient remains in the intensive care unit. She is in room 254. She is again seen today. She remains on the ventilator, volume assist control mode, rate 28, tidal volume 400, FiO2 50%, and PEEP of 14. Blood gases show pO2 of 57, pCO2 of 34, pH is 7.52. The patient remains on propofol at 70 mcg/kg/m, saline at 10 mL an hour, and vital high protein at goal, which is 40 mL an hour. Today, we will do a daily interruption of sedation. White count 10, hemoglobin 9.7, hematocrit 30.2, platelet count 2 58,000. D-dimer is 10.49. Sodium 137, potassium 3.9, chlorides 104, CO2 28, anion gap 5, BUN 28, creatinine 0.54. LDH is 952, C-reactive protein is 9. No chest x-ray today. Progress note dated 06/30/2020. 69-year-old female, admitted on June 12, intubated on June 18, and on June 25, underwent tracheostomy and PEG tube placement. She was diagnosed initially with acute hypoxemic respiratory failure secondary to coronavirus pneumonia. Currently, the patient remains on the volume assist control mode, rate 28, tidal volume 400, FiO2 50%, and PEEP of 14. The people be dropped from 14, down to 10. The patient's blood gases show a PaO2 of 66, PaCO2 36, and a pH 7.49. The patient remains on propofol at 75 mcg/kg/m, saline at 20 mL an hour, and vital high protein at 19 mL an hour, which is goal. She did have a daily interruption of sedation on June 29. She did fair. We are going to DC the long acting insulin and start her on NovoLog sliding scale, every 4 hours. In addition, we'll go ahead and start her on Rocephin, for a pending culture from the neck area/tracheostomy site. White count 8.3, hemoglobin 9.1, hematocrit 27.2, and platelet count are 254,000. Sodium 138, potassium 3.2, chlorides 106, CO2 27, anion gap 5, BUN 26, and creatinine 0.41. LDH is 909, and C-reactive protein is 23.4. Gram stain from the neck wound area shows group B strep, and 2 gram- negative bacilli. Chest x-ray shows bilateral infiltrates, worse on the left. Progress note dated 07/01/2020. 69-year-old female, admitted on June 12, intubated on June 18, and on June 25, underwent tracheostomy and PEG tube placement. The patient was initially diagnosis with acute hypoxemic respiratory failure secondary to coronavirus pneumonia. The patient remains on the mechanical ventilator. Ventilator settings include a volume assist control mode, rate 28, tidal volume 400, FiO2 60%, and PEEP of 10. Blood gases show a PaO2 of 59, pCO2 42, and pH 7.45. The patient's on propofol at 5 mcg/kg/m, saline at 20 mL an hour, 5 mg an hour, and vital high protein at goal, which is 19 mL an hour. Because of dysynchrony with the ventilator, the patient will need a higher dose of propofol. White count is 11.3, hemoglobin 10.1, hematocrit 31.5, and platelet count 306,000. Sodium 141, potassium 3.3, chlorides 105, CO2 29, anion gap 7, BUN 20, creatinine 0.32. LDH is 1246. C-reactive protein is 37.7. Chest x-ray shows diffuse bilateral airspace disease, which is unchanged. Progress note dated 07/02/2020. 69-year-old female, that has been here in the hospital now for 20 days. The patient was initially admitted on June 12, intubated on June 18, and underwent tracheostomy on June 25. The patient remains on mechanical ventilator. She is on the volume assist control mode, rate 28, tidal volume 400, FiO2 60%, and a PEEP of 10. Blood gases show a PaO2 of 51, pCO2 40, pH is 7.52. The patient currently on propofol at 50 mcg/kg/m, saline at 20 mL an hour, Cleveprex is currently weaned off, and vital high protein 19 mL an hour, which is goal. For the metabolic alkalosis, she'll get 2 doses of Diamox, 250 mg, twice a day. The patient will also have a neurology consultation, and a repeat brain CT. Her mental status does not improve. White count 8.6, hemoglobin 8.8, hematocrit 26.9, platelet count normal. D-dimer 4.08. Sodium 140, potassium 3.8, chlorides 104, CO2 32, anion gap 4, BUN 24, creatinine 0.42. LDH is a 20. C- reactive protein 49.9. Objective - Vital Signs Vital signs: Vital Signs Temp 98.8 F 07/02/20 08:00 Pulse 101 H 07/02/20 09:00 Resp 30 H 07/02/20 09:00 BP 116/63 07/02/20 04:00 Pulse Ox 95 07/02/20 09:00 Intake & Output 07/01/20 07/02/20 07/02/20 18:59 06:59 18:59 Intake Total 946.100 794 129.668 Output Total 345 351 35 Balance 601.100 443 94.668 Weight 89.5 kg Intake: IV 276 276 23 .9NS pressure bag A line 36 36 3 0.9 Normal Saline @ KVO 240 240 20 Intake, IV Titration 352.100 200 87.668 Amount Clevidipine Butyrate 25 52.100 mg In Empty Bag 1 bag @ 1 MG/HR 2 mls/hr IV .Q24H [facility] Rx#:[id number] fentaNYL (PF). 1,000 mcg 100 In Sodium Chloride 0.9% 80 ml @ Per Protocol IV . Q0M [facility] Rx#:[id number] propofoL 1,000 mg In 200.000 200 87.668 Empty Bag 1 bag @ Titrate IV .Q0M [facility] Rx#: [id number] Tube Feeding 228 228 19 Other 90 90 Output: Urine 345 351 35 Other: Voiding Method Indwelling Catheter Indwelling Catheter # Bowel Movements 1 ABP, PAP, CO, CI - Last Documented Arterial Blood Pressure 130/59 - Exam The patient is a bit dyssynchronous with the ventilator, and has a midline tracheostomy tube. Saturations are 95%. HEENT examination is grossly unremarkable. Neck supple. Full range of motion. No adenopathy thyromegaly or neck vein distention. Cardiovascular examination reveals regular rhythm rate. S1-S2 normal. No S3 or S4. No discernible murmur noted. Heart rate is 101 bpm. Heart sounds are distant. Lungs reveal coarse bilateral rhonchi, and crackles. No wheezes. Breath sounds equal bilaterally. Breath sounds are diminished bilaterally. Abdomen soft bowel sounds are heard. No masses or tenderness. Extremities are intact. No cyanosis clubbing or edema. Skin is without rash or lesion. Neurologic examination could not be assessed as the patient's currently sedated. - Labs CBC & Chem 7: 07/02/20 04:45 07/02/20 04:45 Labs: Abnormal Lab Results - Last 24 Hours (Table) 07/01/20 07/01/20 07/01/20 Range/Units 11:53 18:07 23:09 RBC (3.80-5.40) m/uL Hgb (11.4-16.0) gm/dL Hct (34.0-46.0) % Lymphocytes # (1.0-4.8) k/uL D-Dimer (<0.60) mg/L FEU ABG pH (7.35-7.45) ABG pO2 (83-108) mmHg ABG HCO3 (21-25) mmol/L ABG Total CO2 (19-24) mmol/L ABG O2 Saturation (94-97) % Carbon Dioxide (22-30) mmol/L BUN (7-17) mg/dL Creatinine (0.52-1.04) mg/dL Glucose (74-99) mg/dL POC Glucose (mg/dL) 257 H 198 H 182 H (75-99) mg/dL Lactate Dehydrogenase (313-618) U/L C-Reactive Protein (<1.0) mg/dL Total Protein (6.3-8.2) g/dL Albumin (3.5-5.0) g/dL 07/02/20 07/02/20 07/02/20 Range/Units 04:45 04:45 04:45 RBC 2.87 L (3.80-5.40) m/uL Hgb 8.8 L (11.4-16.0) gm/dL Hct 26.9 L (34.0-46.0) % Lymphocytes # 0.5 L (1.0-4.8) k/uL D-Dimer 4.08 H (<0.60) mg/L FEU ABG pH (7.35-7.45) ABG pO2 (83-108) mmHg ABG HCO3 (21-25) mmol/L ABG Total CO2 (19-24) mmol/L ABG O2 Saturation (94-97) % Carbon Dioxide 32 H (22-30) mmol/L BUN 24 H (7-17) mg/dL Creatinine 0.42 L (0.52-1.04) mg/dL Glucose 174 H (74-99) mg/dL POC Glucose (mg/dL) (75-99) mg/dL Lactate Dehydrogenase 820 H (313-618) U/L C-Reactive Protein 49.9 H (<1.0) mg/dL Total Protein 4.9 L (6.3-8.2) g/dL Albumin 2.2 L (3.5-5.0) g/dL 07/02/20 07/02/20 Range/Units 05:06 06:07 RBC (3.80-5.40) m/uL Hgb (11.4-16.0) gm/dL Hct (34.0-46.0) % Lymphocytes # (1.0-4.8) k/uL D-Dimer (<0.60) mg/L FEU ABG pH 7.52 H (7.35-7.45) ABG pO2 51 L* (83-108) mmHg ABG HCO3 33 H (21-25) mmol/L ABG Total CO2 34 H (19-24) mmol/L ABG O2 Saturation 87.5 L (94-97) % Carbon Dioxide (22-30) mmol/L BUN (7-17) mg/dL Creatinine (0.52-1.04) mg/dL Glucose (74-99) mg/dL POC Glucose (mg/dL) 181 H (75-99) mg/dL Lactate Dehydrogenase (313-618) U/L C-Reactive Protein (<1.0) mg/dL Total Protein (6.3-8.2) g/dL Albumin (3.5-5.0) g/dL Microbiology - Last 24 Hours (Table) 06/28/20 15:30 Anaerobic Culture - Final Neck Anaerobic Gm Negative Bacilli Anaerobic Gram Positive Cocci Assessment and Plan Assessment: Acute hypoxemic respiratory failure secondary to COVID 19 pneumonitis/pneumonia, with intubation on June 18, and tracheostomy/PEG tube placement on June 25. New onset atrial fibrillation with RVR. Elevated inflammatory marker secondary to COVID infection. Culture adjacent to the tracheostomy site shows evidence of group B strep, Proteus mirabilis, and Klebsiella pneumoniae. History of CVA and aphasia. History of essential hypertension. History of type 2 diabetes mellitus. History of hyperlipidemia. Status post right-sided mastectomy for breast cancer. Previous history of tobacco use. Hyperlipidemia. Plan: Plan dated 06/28/2020. In light of the recent article in the Journal of Critical Care, which compared Versed versus propofol for critically ill patient's in the intensive care unit, the patient's Versed will be discontinued in favor of propofol. In addition, we will attempt to get the patient off of fentanyl by using Dilaudid when necessary. Additional recommendations and suggestions are forthcoming. Follow patient and make recommendations were appropriate. Overall prognosis remains guarded. She might be a candidate for long-term acute care, if we can get her off the propofol and fentanyl eventually. Plan dated 06/29/2020. The patient's Versed was discontinued yesterday, in favor of propofol. We will attempt to wean that today. In addition, the patient will have a daily inter ruption of sedation today. The patient would be a great candidate for a long- term acute care facility, once we get her off the sedative. We will continue to follow her very closely. She is to get Dilaudid when necessary. Additional recommendations and suggestions are forthcoming. Prognosis is guarded. We will continue to follow along, and make recommendations where appropriate. Plan dated 06/30/2020. The patient's PEEP will be dropped down to 10, from her current PEEP level of 14. Her gases are reviewed. She remains on propofol at 75 mcg/kg/m. The patient will have another daily interruption of sedation today. In addition, we'll DC all long-acting insulin, and put her on NovoLog sliding scale, every 4 hours. Finally, we start Rocephin, for the pending abnormal culture data from the Gram stain from the tracheostomy site. Additional recommendations and suggestions are forthcoming. We will attempt to get her off the propofol, so that we can get her transferred to long-term acute care. Additional recommendations and suggestions are forthcoming. Prognosis is poor. Plan dated 07/01/2020. The patient's propofol will need to be increased a bit. The patient remains on Cleveprex for blood pressure control. She is getting nutrition at goal. The culture adjacent to the tracheostomy site showed evidence of group B strep, Klebsiella, and Proteus. All are sensitive to ceftriaxone. The patient will continue to be maintained on this antibiotic for the time being. The rest of medications are reviewed and are appropriate. Prognosis is guarded. The nurse will call the family members to give them an update, and determine whether or not there is a change in CODE STATUS. Plan dated 07/02/2020. The patient does not wake up during daily interruption of sedation. Hence, the patient will be reevaluated by neurology, and also have her brain CT. For the metabolic alkalosis, the patient will get Diamox 250 mg now and 250 mg in 12 hours. The patient remains on propofol, Cleveprex at been weaned down. She's being enterally fed at goal, with vital high protein. Prognosis is poor. We'll continue to follow. I did ask the nurse to again reach out to the family about CODE STATUS. We will continue to follow this patient and make recommendations were appropriate. Time with Patient: Greater than 30
--- NOTE | 2020-07-02 10:38 | XR ---
EXAMINATION TYPE: XR chest 1V DATE OF EXAM: 07/02/2020 COMPARISON: Chest x-ray 07/01/2020 HISTORY: Covid pneumonia TECHNIQUE: Single frontal view of the chest is obtained. FINDINGS: A sided PICC line, tracheostomy tube are overlying appropriate positions, and bilateral ai rspace disease is again noted. There is no evident pneumothorax or pleural effusion. Cardiac mediasti nal silhouette is stable. There are overlying artifacts. IMPRESSION: Essentially stable exam, correlate for pneumonia
[2020-07-02 12:08] LABS: Glucose,Whole Blood 183 mg/dL (75-99)
[2020-07-02 13:36] VITALS: BMI 32.8
--- NOTE | 2020-07-02 15:28 | P.PN ---
Subjective Progress Note Date: 07/02/20 CHIEF COMPLAINT: COVID-19 pneumonia HISTORY OF PRESENT ILLNESS: Patient remains in the ICU on mechanical ventilation. She is hospitalized for COVID-19 pneumonia with hypoxic respiratory failure. She is status post tracheostomy and PEG tube placement. She is tolerating tube feeds. Patient had drainage from the tracheostomy site. drainage culture from trach site grew strep agalactiae, Proteus mirabilis and Klebsiella pneumoniae. Critical care service has adjusted antibiotics. Patient is afebrile. WBC 8.6 patient is scheduled to be reevaluated by neurology and they have a computed tomography scan of the brain. She has not been waking up during her daily interruptions of sedation. Patient seen and examined with Dr. Leavitt PHYSICAL EXAM: VITAL SIGNS: Reviewed. GENERAL: Well-developed in no acute distress. HEENT: Head is atraumatic, normocephalic. Tracheostomy site with drainage ABDOMEN: Soft. Nondistended. Nontender. PEG tube site clean dry and intact NEUROLOGIC: Intubated and sedated ASSESSMENT: 1. Acute hypoxic respiratory failure due to COVID-19 pneumonia. Status post tracheostomy placement 2. Severe protein calorie malnutrition status post PEG tube placement 3. Infection at tracheostomy site PLAN: -Continue ICU management -Continue supportive care -Continue PEG tube feedings -Continue antibiotics for infection at tracheostomy site Physician [employer] Terrain Vehicle Technician note has been reviewed by physician. Signing provider agrees with the documented findings, assessment, and plan of care. Objective - Vital Signs Vital signs: Vital Signs Temp 98.1 F 07/02/20 12:00 Pulse 91 07/02/20 15:00 Resp 28 H 07/02/20 15:00 BP 116/63 07/02/20 04:00 Pulse Ox 92 L 07/02/20 15:00 Intake & Output 07/01/20 07/02/20 07/02/20 18:59 06:59 18:59 Intake Total 946.100 794 654.638 Output Total 345 351 395 Balance 601.100 443 259.638 Weight 89.5 kg 89.5 kg Intake: IV 276 276 207 .9NS pressure bag A line 36 36 27 0.9 Normal Saline @ KVO 240 240 180 Intake, IV Titration 352.100 200 176.638 Amount Clevidipine Butyrate 25 52.100 mg In Empty Bag 1 bag @ 1 MG/HR 2 mls/hr IV .Q24H [facility] Rx#:[id number] fentaNYL (PF). 1,000 mcg 100 In Sodium Chloride 0.9% 80 ml @ Per Protocol IV . Q0M [facility] Rx#:[id number] propofoL 1,000 mg In 200.000 200 176.638 Empty Bag 1 bag @ Titrate IV .Q0M [facility] Rx#: [id number] Tube Feeding 228 228 171 Other 90 90 100 Output: Urine 345 351 395 Other: Voiding Method Indwelling Catheter Indwelling Catheter Indwelling Catheter # Bowel Movements 1 ABP, PAP, CO, CI - Last Documented Arterial Blood Pressure 139/60 - Labs CBC & Chem 7: 07/02/20 04:45 07/02/20 04:45 Labs: Abnormal Lab Results - Last 24 Hours (Table) 07/01/20 07/01/20 07/02/20 Range/Units 18:07 23:09 04:45 RBC 2.87 L (3.80-5.40) m/uL Hgb 8.8 L (11.4-16.0) gm/dL Hct 26.9 L (34.0-46.0) % Lymphocytes # 0.5 L (1.0-4.8) k/uL D-Dimer (<0.60) mg/L FEU ABG pH (7.35-7.45) ABG pO2 (83-108) mmHg ABG HCO3 (21-25) mmol/L ABG Total CO2 (19-24) mmol/L ABG O2 Saturation (94-97) % Carbon Dioxide (22-30) mmol/L BUN (7-17) mg/dL Creatinine (0.52-1.04) mg/dL Glucose (74-99) mg/dL POC Glucose (mg/dL) 198 H 182 H (75-99) mg/dL Lactate Dehydrogenase (313-618) U/L C-Reactive Protein (<1.0) mg/dL Total Protein (6.3-8.2) g/dL Albumin (3.5-5.0) g/dL 07/02/20 07/02/20 07/02/20 Range/Units 04:45 04:45 05:06 RBC (3.80-5.40) m/uL Hgb (11.4-16.0) gm/dL Hct (34.0-46.0) % Lymphocytes # (1.0-4.8) k/uL D-Dimer 4.08 H (<0.60) mg/L FEU ABG pH 7.52 H (7.35-7.45) ABG pO2 51 L* (83-108) mmHg ABG HCO3 33 H (21-25) mmol/L ABG Total CO2 34 H (19-24) mmol/L ABG O2 Saturation 87.5 L (94-97) % Carbon Dioxide 32 H (22-30) mmol/L BUN 24 H (7-17) mg/dL Creatinine 0.42 L (0.52-1.04) mg/dL Glucose 174 H (74-99) mg/dL POC Glucose (mg/dL) (75-99) mg/dL Lactate Dehydrogenase 820 H (313-618) U/L C-Reactive Protein 49.9 H (<1.0) mg/dL Total Protein 4.9 L (6.3-8.2) g/dL Albumin 2.2 L (3.5-5.0) g/dL 07/02/20 07/02/20 Range/Units 06:07 12:06 RBC (3.80-5.40) m/uL Hgb (11.4-16.0) gm/dL Hct (34.0-46.0) % Lymphocytes # (1.0-4.8) k/uL D-Dimer (<0.60) mg/L FEU ABG pH (7.35-7.45) ABG pO2 (83-108) mmHg ABG HCO3 (21-25) mmol/L ABG Total CO2 (19-24) mmol/L ABG O2 Saturation (94-97) % Carbon Dioxide (22-30) mmol/L BUN (7-17) mg/dL Creatinine (0.52-1.04) mg/dL Glucose (74-99) mg/dL POC Glucose (mg/dL) 181 H 183 H (75-99) mg/dL Lactate Dehydrogenase (313-618) U/L C-Reactive Protein (<1.0) mg/dL Total Protein (6.3-8.2) g/dL Albumin (3.5-5.0) g/dL Microbiology - Last 24 Hours (Table) 06/28/20 15:30 Anaerobic Culture - Final Neck Anaerobic Gm Negative Bacilli Anaerobic Gram Positive Cocci
--- NOTE | 2020-07-02 16:58 | P.PN ---
Progress Note - Text Progress Note Date: 07/02/20 Chief Complaint: Short of breath History of presenting complaint: This is a 69-year-old patient who follows with Dr. blake . Patient was last seen in the ER about 5 days ago. She then had an having respiratory symptoms including cough for about 2 or 3 weeks prior to that. On this presentation is patient is altered sense. She was last seen normal at home on Sunday. EMS was called out and they found the patient to be hypoxic with 46%. Patient was ventilated with a bag valve and pulse oxygenation improved. He was placed on a nonrebreather and brought here. Here patient's problem of BiPAP. And is somewhat delirious. Not able to give any history. Patient chronic stable medical conditions include diabetes, hypertension, hyperlipidemia, history of breast cancer with right mastectomy. No family members currently present. Admitted with acute severe bilateral COVID 19 pneumonia, acute severe hypoxic respiratory failure, acute metabolic encephalopathy, with delirium. Patient placed on oxygen. Decadron. Lovenox. Consultation to neurology, pulmonary. Lumbar puncture/CSF unremarkable. Patient was placed on BiPAP. Progression of respiratory status patient intubated on June 18. Run of Loccit (ML4D) with rapid ventricular rate-sinus rhythm. Today-ICU: Ventilator: FiO2 60 the PEEP of 10 . Drips included propofol. 2 feeding at 90 mL an hour. Patient has a tracheostomy and a PEG tube. Review of systems: Patient on the ventilator Active Medications Acetaminophen (Acetaminophen Suppository 650 Mg Supp) 650 mg RECTAL Q4HR PRN PRN Reason: Fever And/ Or Mild Pain Last Admin: 06/30/20 21:28 Dose: 650 mg Documented by: Acetazolamide Sodium (Acetazolamide Sodium 500 Mg Vial) 250 mg IV Q12HR [facility] Stop: 07/02/20 21:01 Last Admin: 07/02/20 09:02 Dose: 250 mg Documented by: Ascorbic Acid (Ascorbic Acid 500 Mg Tab) 1,000 mg PO DAILY [facility] Last Admin: 07/02/20 09:02 Dose: 1,000 mg Documented by: Atorvastatin Calcium (Atorvastatin 10 Mg Tab) 10 mg PO HS [facility] Last Admin: 07/01/20 20:59 Dose: 10 mg Documented by: Cholecalciferol (Cholecalciferol 25 Mcg (1000 Iu) Tablet) 25 mcg PO DAILY [facility] Last Admin: 07/02/20 09:02 Dose: 25 mcg Documented by: Enoxaparin Sodium (Enoxaparin 40 Mg/0.4 Ml Syringe) 40 mg SQ BID [facility] Last Admin: 07/02/20 09:02 Dose: 40 mg Documented by: Famotidine (Famotidine 20 Mg Tab) 20 mg PO Q12HR [facility] Last Admin: 07/02/20 09:02 Dose: 20 mg Documented by: Hydromorphone HCl (Hydromorphone 1 Mg/Ml 1 Ml Syringe) 1 mg IVP Q4HR PRN PRN Reason: Pain Last Admin: 07/02/20 06:50 Dose: 1 mg Documented by: Propofol 1,000 mg/ IV Solution 100 mls @ 0 mls/hr IV .Q0M [facility]; Protocol Last Admin: 07/02/20 12:26 Dose: 50 mcg/kg/min, 26.04 mls/hr Documented by: Ceftriaxone Sodium 1 gm/ (Sodium Chloride) 50 mls @ 100 mls/hr IVPB Q24HR [facility] Last Admin: 07/02/20 09:02 Dose: 100 mls/hr Documented by: Clevidipine 25 mg/ IV Solution 50 mls @ 2 mls/hr IV .Q24H [facility]; Protocol Last Titration: 07/01/20 11:15 Dose: 0 mg/hr, 0 mls/hr Documented by: Insulin Aspart (Insulin Aspart (Novolog) 100 Unit/Ml Vial) 0 unit SQ Q6H [facility]; Protocol Last Admin: 07/02/20 12:26 Dose: 2 unit Documented by: Miscellaneous Information (Potassium Replacement Protocol 1 Each Misc) 1 each MISCELLANE DAILY PRN; Protocol PRN Reason: Per Protocol Miscellaneous Information (Magnesium Replacement Protocol 1 Each Misc) 1 each MISCELLANE DAILY PRN; Protocol PRN Reason: Per Protocol Naloxone HCl (Naloxone 0.4 Mg/Ml 1 Ml Vial) 0.2 mg IV Q2M PRN PRN Reason: Opioid Reversal Sertraline HCl (Sertraline 50 Mg Tab) 50 mg PO DAILY [facility] Last Admin: 07/02/20 09:02 Dose: 50 mg Documented by: Sodium Chloride (Sodium Chloride 0.9% Flush 10 Ml Syringe) 10 ml IV Q4HR PRN PRN Reason: PICC Line Sodium Chloride (Sodium Chloride 0.9% Flush 10 Ml Syringe) 10 ml IV WEEKLY [facility] Last Admin: 06/30/20 09:06 Dose: 10 ml Documented by: Sodium Chloride (Sodium Chloride 0.9% Flush 10 Ml Syringe) 20 ml IV Q4HR PRN PRN Reason: PICC Line Zinc Sulfate (Zinc Sulfate 220 Mg Cap) 220 mg PO DAILY [facility] Last Admin: 07/02/20 09:02 Dose: 220 mg Documented by: Past medical history to include: Breast cancer with mastectomy, diabetes, hypertension, hyperlipidemia, anxiety Social history: Former smoker. Lives alone. Family history: Patient cannot tell Physical examination: VITAL SIGNS: 98.4, 88, 30, 120/55 95% on the ventilator GEN. appearance: Laying in bed, intubated LUNGS:[ Respiratory rate increased,. PSYCH: Unable to assess. Rest of the exam per pulmonary and nursing INVESTIGATIONS, reviewed in the clinical context: July 02: WBC 8.6 hemoglobin 8.8 platelets 288 d-dimer 4.08 potassium 3.8 creatinine 0.4 to CRP 49.9 July 01: WBC 11.3 hemoglobin 10.1 platelets 306 potassium 3.3 creatinine 0.3 to CRP 37.7 June 30: WBC 8.3 hemoglobin 9.1 and platelets 254 potassium 3.2 creatinine 0.41 Ultrasound Doppler upper extremity left: Superficial vein thrombosis identified. 2-D echo: A. fib. EF greater than 55% June 14: WBC 6.6 hemoglobin 12.5 platelets 370 sodium 154 potassium 4.3 creatinine 0.94 June 13: D-dimer 2.13 ABG pH 7.39 pCO2 45 pO2 68 CRP 356 troponin I 0.190 WBC 7.3 hemoglobin 11.8 platelets 357 ABG: PH 7.45 pCO2 32, pO2 79 Potassium 3.9 creatinine 1.0 blood glucose 321 Troponin I 0.104 CRP 334 EKG tracing personally reviewed by me-normal sinus rhythm, nonspecific ST segment changes Chest x-ray film personally reviewed by me-bilateral infiltrate severe CT angio chest: Bilateral diffuse patchy groundglass opacities and consolidation. CTA head and neck: Negative Computed tomography scan of the brain: Negative Assessment and plan: -Acute severe bilateral COVID 19 pneumonia, diagnosed 5 days before admission, with symptoms present 2-3 weeks prior to that.-Not improving IV dexamethasone-discontinued, subcu Lovenox, vitamin C vitamin D Pepcid zinc. Received ACTEMRA -Acute severe hypoxic respiratory failure, secondary to COVID 19 -not improving Initially BiPAP-100%. Intubated June 18. On ventilator with FiO2 60% -Septic shock-improved norepinephrine/levo fed-stopped -Acute delirium and acute metabolic encephalopathy from COVID 19 pneumonia Follow closely. -Diabetes mellitus type 2 on oral hypoglycemic, uncontrolled with hyperglycemia secondary to steroids Hold off oral hypoglycemic. On insulin drip-post exchange manager to Levemir-follow Accu- Cheks -Essential hypertension Not able to tolerate oral medications. Catapres patch 0.2 -Diabetic peripheral neuropathy Resume gabapentin when able to tolerate by mouth -Hyperlipidemia Resume Mevacor unable to tolerate by mouth -Patient underwent lumbar puncture. CSF benign. -Significant hypernatremia with hyperchloremia.-Corrected IV fluids -Paroxysmal atrial fibrillation with rapid ventricle [id number] rhythm Received amiodarone. Cardizem drip discontinued. Started xarelto-held -Superficial vein thrombosis of the left upper extremity. 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 Continue current medication treatment plan. Remains critical
[2020-07-02 17:35] LABS: Glucose,Whole Blood 151 mg/dL (75-99)
--- NOTE | 2020-07-02 18:21 | CT ---
EXAMINATION TYPE: CT brain wo con DATE OF EXAM: 07/02/2020 COMPARISON: 06/16/2020 HISTORY: AMS CT DLP: 1098 mGycm Automated exposure control for dose reduction was used. There is hypodensity in the large area of the right cerebral hemisphere involving the anterior and po sterior temporal lobe, right posterior frontal lobe and the right parietal lobe. This area overall me asures 9 x 4.5 cm. There is no midline shift. There is no sign of intracranial hemorrhage. There is o pacification of the mastoid air cells. Calvarium is intact. IMPRESSION: Large area of hypodensity right cerebral hemisphere consistent with subacute right middle cerebral ar viky infarct. This appears new compared to recent exam.
[2020-07-02 18:27] VITALS: BP 147/69
[2020-07-02] MEDS ORDERED: ATORVASTATIN 80 MG TAB PO SCH (21:00)
--- NOTE | 2020-07-02 21:12 | US ---
EXAMINATION TYPE: US carotid duplex BILAT DATE OF EXAM: 07/02/2020 COMPARISON: NONE CLINICAL HISTORY: stroke. Exam done portable. EXAM MEASUREMENTS: RIGHT: Peak Systolic Velocity (PSV) cm/sec ----- Right CCA: 67.7 ----- Right ICA: 68.8 ----- Right ECA: 95.3 ICA/CCA ratio: 1.0 RIGHT: End Diastole cm/sec ----- Right CCA: 11.7 ----- Right ICA: 19.3 ----- Right ECA: 7.3 LEFT: Peak Systolic Velocity (PSV) cm/sec ----- Left CCA: 84.1 ----- Left ICA: 68.9 ----- Left ECA: 135.1 ICA/CCA ratio: 0.8 LEFT: End Diastole cm/sec ----- Left CCA: 19.2 ----- Left ICA: 18.8 ----- Left ECA: 14.8 VERTEBRALS (direction of flow): Right Vertebral: Antegrade Left Vertebral: Antegrade Rhythm: Normal Elevated velocity: left prox ECA No significant stenosis IMPRESSION: There is antegrade flow in the vertebral arteries. The images and measurements suggest less than 25% stenosis in both internal carotid arteries. Criteria for Assigning % of Stenosis / Diameter reduction (Estimation based on the indirect measurements of the internal carotid artery velocities (ICA PSV). 1. Normal (no stenosis)=ICA PSV < 125 cm/s: ratio < 2.0: ICA EDV<40 cm/s. 2. Less than 50% stenosis=ICA PSV < 125 cm/s: ratio < 2.0: ICA EDV<40 cm/s. 3. 50 to 69% stenosis=ICA PSV of 125 to 230 cm/s: ration 2.0 ? 4.0: ICA EDV 40-100 cm/s. 4. Greater than 70% stenosis to near occlusion= ICA PSV > 230 cm/s: ratio > 4.0: ICA EDV > 100 cm/s. 5. Near occlusion= ICA PSV velocities may be low or undetectable: variable ratio and ICA EDV. 6. Total occlusion=unable to detect flow.
[2020-07-02 23:10] LABS: Glucose,Whole Blood 149 mg/dL (75-99)
[2020-07-03 04:22] LABS: Basophils % (A) 0 %; Eosinophils # (A) 0.3 k/uL (0-0.7); Eosinophils % (A) 3 %; HCT 27.3 % (34.0-46.0); HGB 8.1 gm/dL (11.4-16.0); Hypochromasia Marked; Lymphocytes # (A) 0.5 k/uL (1.0-4.8); Lymphocytes % (A) 6 %; MCH 28.7 pg (25.0-35.0); MCHC 29.8 g/dL (31.0-37.0); MCV 96.2 fL (80.0-100.0); Mean Platelet Volume 7.8; Monocytes # (A) 0.2 k/uL (0-1.0); Monocytes % (A) 2 %; Neutrophils # (A) 7.5 k/uL (1.3-7.7); Neutrophils % (A) 88 %; Platelet Count 309 k/uL (150-450); RBC 2.83 m/uL (3.80-5.40); RDW 15.6 % (11.5-15.5); WBC 8.5 k/uL (3.8-10.6)
[2020-07-03 04:57] LABS: ALT 78 U/L (4-34); AST 103 U/L (14-36); African American GFR (CKD) >90 (>60 ml/min/1.73 sqM); Albumin 2.1 g/dL (3.5-5.0); Alkaline Phosphatase 105 U/L (38-126); Anion Gap 3 mmol/L; Blood Urea Nitrogen 18 mg/dL (7-17); Carbon Dioxide 30 mmol/L (22-30); Chloride 108 mmol/L (98-107); Creatine Kinase 36 U/L (30-135); Glucose 158 mg/dL (74-99); LDH 895 U/L (313-618); Non-African American GFR(CKD) >90 (>60 ml/min/1.73 sqM); Sodium 141 mmol/L (137-145); Total Bilirubin 0.3 mg/dL (0.2-1.3); Total Protein 4.8 g/dL (6.3-8.2)
[2020-07-03 05:22] LABS: ABG Base Excess 4.1 mmol/L; ABG HCO3 28 mmol/L (21-25); ABG Oxygen Saturation 90.6 % (94-97); ABG PCO2 40 mmHg (35-45); ABG PH 7.45 (7.35-7.45); ABG PO2 60 mmHg (83-108); ABG TCO2 29 mmol/L (19-24); Allen Test Performed? Yes
[2020-07-03 06:16] LABS: C Reactive Protein 46.8 mg/dL (<1.0)
[2020-07-03] MEDS: POTASSIUM BICARBONATE/CIT AC 20 MEQ TABLET.EFF NG-TUBE SCH ×2 (06:21→08:50)
[2020-07-03] MEDS: INSULIN ASPART (NovoLOG) 100 UNIT/ML VIAL SQ SCH ×2 (06:22→12:16)
--- NOTE | 2020-07-03 06:59 | XR ---
EXAMINATION TYPE: XR chest 1V DATE OF EXAM: 07/03/2020 COMPARISON: 07/02/2020 HISTORY: Covid TECHNIQUE: Single frontal view of the chest is obtained. FINDINGS: There is diffuse interstitial opacity and partially consolidative opacities in both lungs essentially unchanged compared to the prior study. There is no pneumothorax., The heart, mediastinum and pulmonary vasculature are normal. The osseous structures are intact and there is a tracheostomy t ube and a PICC line the tip of which is in the SVC/RA junction. IMPRESSION: Acute cardiopulmonary disease with no interval change.
[2020-07-03] MEDS: CHOLECALCIFEROL 25 MCG (1000 IU) TABLET PO SCH (08:50)
[2020-07-03] MEDS: ASCORBIC ACID 500 MG TAB PO SCH (08:50)
[2020-07-03] MEDS: ENOXAPARIN 40 MG/0.4 ML SYRINGE SQ SCH (08:50)
[2020-07-03] MEDS: FAMOTIDINE 20 MG TAB PO SCH (08:50)
[2020-07-03] MEDS: ZINC SULFATE 220 MG CAP PO SCH (08:50)
[2020-07-03] MEDS: SERTRALINE 50 MG TAB PO SCH (08:50)
[2020-07-03] MEDS ORDERED: ASPIRIN 81 MG PO SCH (09:00)
[2020-07-03 09:24] VITALS: TEMP 98.8
--- NOTE | 2020-07-03 09:40 | P.PN ---
Subjective Progress Note Date: 07/03/20 This patient was being seen by our team and initially was evaluated by Dr. Mcallister on 06/13/2020 then was seen by myself then was last Seen by Dr. Camacho (06/22/2020). Seeing her for altered mental status and for ?aphasia. During the hospital stay she had acute encephalopathy likely due to hypoxemia from pneumonia COVID-19 as well as a component of metabolic encephalopathy from elevated liver function and uncontrolled sugar and her mentation was improving, she had acute hypoxic respiratory failure, and the patient tested positive for acute COVID-19 on 06/07/2020. During the hospital stay the patient received 2 CT of the head and there and they were 4 days apart which did not show a stroke.. Unable to get MRI Brain because of respiratory status. Her new onset atrial fibrillation she was on anticoagulation. Please refer to our previous notes for further details. We are to see the patient again because of new stroke seen on CT head. Patient got CT of the head on 07/02/2020 for continued altered mental status and status and a showed large area of hypodensity right cerebral hemisphere c onsistent with subacute right middle cerebral artery infarct which appears new compared to recent exam which was the last one was on 06/16/2020. The ICU team I got the CT of the head since the patient the head the holidays sedation but she continued to have altered mental status. Per my colleague note she was on Xarelto 20mg daily and that was documented last on 06/22/2020 and was held for PEG and trach that was done on 06/25/20 and it seems was not restarted on anticoagulation or antiplatelet after that. She was on Lovenox 40mg sq bid. Patient most recent hemoglobin is 8.12 days ago was 10.1. Serum glucose is 158. Most recent AST is 103 and the ALT 78 Carotid duplex is reported as there is antegrade flow in the vertebral arteries. The images and measurements suggest less than 25% stenosis in both internal carotid artery. I started the patient on aspirin 81 mg daily. I did not start the patient on the Plavix since the patient hemoglobin was low at. I started the patient on Lipitor 80 mg for secondary stroke prophylaxis. Objective - Vital Signs Vital signs: Vital Signs Temp 98.0 F 07/03/20 04:00 Pulse 106 H 07/03/20 07:00 Resp 39 H 07/03/20 07:00 BP 147/69 07/03/20 03:00 Pulse Ox 89 L 07/03/20 07:00 Intake & Output 07/02/20 07/03/20 07/03/20 18:59 06:59 18:59 Intake Total 910.638 915.031 42 Output Total 505 745 75 Balance 405.638 170.031 -33 Weight 89.5 kg 88.8 kg Intake: IV 276 276 23 .9NS pressure bag A line 36 36 3 0.9 Normal Saline @ KVO 240 240 20 Intake, IV Titration 276.638 381.031 Amount propofoL 1,000 mg In 276.638 381.031 Empty Bag 1 bag @ Titrate IV .Q0M [facility] Rx#: [id number] Tube Feeding 228 228 19 Other 130 30 Output: Urine 505 745 75 Other: Voiding Method Indwelling Catheter Indwelling Catheter ABP, PAP, CO, CI - Last Documented Arterial Blood Pressure 126/58 - Exam GENERAL: The patient is lying in bed and is on Propofol 40mcg/kg/min. She does not seem in acute distress. LUNG: She is trached and is on vent. Is breathing over the vent. NEUROLOGICAL: Limited since on Propofol 40mcg/kg/min. Higher mental function: Comatose GCS 3 (E1, VT1,M1). She is no verbalizing or attempting to communicate.. Cranial nerves: Pupils are round, equal (2mm) bilaterally and reactive to light. Primary gaze is midline. +ve corneal reflex. No facial weakness. She has +ve gag reflex. Rest of cranial nerves are limited because of condition. Motor: Gait is deferred. The strength is 0/5 throughout. To painful stimuli no movement is noted. No spontaneous movement is noted. Decrease tone predominately in the upper extremities. Cerebellum: Could not assess. Sensation: Could not assess light touch. Reflexes (right/left): 1+ throughout. Plantars are downgoing bilaterally. - Labs CBC & Chem 7: 07/03/20 04:10 07/03/20 04:10 Labs: Abnormal Lab Results - Last 24 Hours (Table) 07/02/20 07/02/20 07/02/20 Range/Units 04:45 12:06 17:34 RBC (3.80-5.40) m/uL Hgb (11.4-16.0) gm/dL Hct (34.0-46.0) % MCHC (31.0-37.0) g/dL RDW (11.5-15.5) % Lymphocytes # (1.0-4.8) k/uL D-Dimer 4.08 H (<0.60) mg/L FEU ABG pO2 (83-108) mmHg ABG HCO3 (21-25) mmol/L ABG Total CO2 (19-24) mmol/L ABG O2 Saturation (94-97) % Potassium (3.5-5.1) mmol/L Chloride (98-107) mmol/L BUN (7-17) mg/dL Creatinine (0.52-1.04) mg/dL Glucose (74-99) mg/dL POC Glucose (mg/dL) 183 H 151 H (75-99) mg/dL AST (14-36) U/L ALT (4-34) U/L Lactate Dehydrogenase (313-618) U/L C-Reactive Protein (<1.0) mg/dL Total Protein (6.3-8.2) g/dL Albumin (3.5-5.0) g/dL 07/02/20 07/03/20 07/03/20 Range/Units 23:07 04:10 04:10 RBC 2.83 L (3.80-5.40) m/uL Hgb 8.1 L (11.4-16.0) gm/dL Hct 27.3 L (34.0-46.0) % MCHC 29.8 L (31.0-37.0) g/dL RDW 15.6 H (11.5-15.5) % Lymphocytes # 0.5 L (1.0-4.8) k/uL D-Dimer (<0.60) mg/L FEU ABG pO2 (83-108) mmHg ABG HCO3 (21-25) mmol/L ABG Total CO2 (19-24) mmol/L ABG O2 Saturation (94-97) % Potassium 3.0 L (3.5-5.1) mmol/L Chloride 108 H (98-107) mmol/L BUN 18 H (7-17) mg/dL Creatinine 0.51 L (0.52-1.04) mg/dL Glucose 158 H (74-99) mg/dL POC Glucose (mg/dL) 149 H (75-99) mg/dL AST 103 H (14-36) U/L ALT 78 H (4-34) U/L Lactate Dehydrogenase 895 H (313-618) U/L C-Reactive Protein 46.8 H (<1.0) mg/dL Total Protein 4.8 L (6.3-8.2) g/dL Albumin 2.1 L (3.5-5.0) g/dL 07/03/20 07/03/20 Range/Units 04:10 05:18 RBC (3.80-5.40) m/uL Hgb (11.4-16.0) gm/dL Hct (34.0-46.0) % MCHC (31.0-37.0) g/dL RDW (11.5-15.5) % Lymphocytes # (1.0-4.8) k/uL D-Dimer 4.48 H (<0.60) mg/L FEU ABG pO2 60 L (83-108) mmHg ABG HCO3 28 H (21-25) mmol/L ABG Total CO2 29 H (19-24) mmol/L ABG O2 Saturation 90.6 L (94-97) % Potassium (3.5-5.1) mmol/L Chloride (98-107) mmol/L BUN (7-17) mg/dL Creatinine (0.52-1.04) mg/dL Glucose (74-99) mg/dL POC Glucose (mg/dL) (75-99) mg/dL AST (14-36) U/L ALT (4-34) U/L Lactate Dehydrogenase (313-618) U/L C-Reactive Protein (<1.0) mg/dL Total Protein (6.3-8.2) g/dL Albumin (3.5-5.0) g/dL Assessment and Plan Assessment: Subacute stroke over the Right MCA territory. Seems cardioembolic (Atrial fibrillation). Acute encephalopathy likely due to hypoxeimia from pneumonia COVID 19. Also component of underlying metabolic encephalopathy (elevated LFT"s) and due to medication effect Acute hypoxic respiratory failure related to acute Covid 19 pneumonia with onset of symptoms 3 weeks ago (tested positived in emergency department on 06/07/2020) s/p Trach 06/25/20 ?reported aphasia but exam is limited due to above Acute anemia New onset atrial fibrillation (Not on anticoagulation). It was stopped on 06/25/20 for Trach and PEG Elevated LFT PEG on 06/25/20 Hypertension Hyperlipidemia Diabetes mellitus type 2 with uncontrolled sugar History of breast cancer with history of right mastectomy X tobacco use Anxiety Plan: CSF study: CSF appears clear, colorless, red blood cells 7, nuclear cells 2, which is normal, CSF glucose is 79 with a slightly elevated and the CSF total protein is 66 which is slightly elevated. This CSF is not suggestive of meningo-encephalitis since normal nucleated cells. An EEG on 06/15/2020 and the was an abnormal routine EEG. The background slowing is suggestive of moderate to severe encephalopathy. There are no focal slowing, perform discharges or seizure on the EEG. Vitamin B12 is 2829 which is high and considered normal. Serum folate level is more than 24 which is considered normal. TSH is 0.263 which is concerning low free T4 is 1.48 and is considered normal. CTA of head and neck is normal (06/12/20). Moderate stenosis of the right proximal ICA. Patient had normal CT scan of head on 06/12/2020 and 06/16/2020. No evidence of an acute stroke. CT head showed possible mastoiditis. Will defer to IM and critical care regarding mastoiditis. 2-D echo shows normal left-ventricular size, wall thickness, EF is greater than 55%. Right ventricle is mild to moderately enlarged. Left atrial size is normal. Patient got CT of the head on 07/02/2020 for continued altered mental status and status and a showed large area of hypodensity right cerebral hemisphere consistent with subacute right middle cerebral artery infarct which appears new compared to recent exam which was the last one was on 06/16/2020. Carotid duplex (07/02/20) is reported as there is antegrade flow in the vertebral arteries. The images and measurements suggest less than 25% stenosis in both internal carotid artery. I ordered 2-D echo I consulted cardiology and recommended MAXI. I started the patient on aspirin 81 mg daily. I did not start the patient on the Plavix since the patient hemoglobin was low. Regarding starting anticoagulation because of atrial fibrillation, I would recommend to hold off for another 4 days especially with a large subacute ischemic stroke. If cardiology feels the benefit outweighs the risk then I would recommend heparin avoiding any boluses, and to keep the PTT between 45 and 60. Once it is safe to start anticoagulation consider starting Eliquis rather than Xarelto. I started the patient on Lipitor 80 mg for secondary stroke prophylaxis. PT, OT and BLACK ASH WORKER are consulted. Will defer the rest of medical management to the primary team/ICU team. The plan is discussed with the patient's nurse and ICU nurse practioner Brian Glover MD Neuro-Hospitalist Time with Patient: Greater than 30
--- NOTE | 2020-07-03 11:12 | P.PN ---
Subjective Progress Note Date: 07/03/20 Principal diagnosis: COVID 19 pneumonia. Patient was reevaluated today on 06/23/2020, remains in the ICU, intubated and mechanically ventilated. She is on assist control rate of 28 tidal volume is 400 FiO2 50% PEEP remains 15. I did cut down the PEEP to 12. ABG showed a pO2 of 61 pCO2 of 46 pH of 7.44. Patient remains on Versed and fentanyl, not requiring any Nimbex, Versed is 10 mg per hour, and fentanyl at 1.5 mcg/kg/h. She is on enteral feeding using vital hP and 59/59. Patient is hemodynamically stable, she is in sinus rhythm, peak airway pressure is 28, and static pressure is 17. Chest x-ray continues to show bilateral of disease consistent with COVID-19 pneumonia. Basic metabolic profile is normal renal profile is normal LDH is 1628. C-reactive protein is 2.7 BC is relatively normal. Spinal fluid cultures have been negative from a week ago Patient was reevaluated today on 06/24/2020, remains in the ICU, intubated and mechanically ventilated. He is on assist control rate of 28 tidal volumes 400 FiO2 50% PEEP of 14. ABG showed a pO2 of 58 pCO2 of 52 pH of 7.40. Patient is on fentanyl at 1.5 and Versed at 11 mg per hour. My plan is to give the patient a sedation holiday. And assess mental status. Although the patient remains on relatively high PEEP, she is not ready to wean, and I would recommend tracheostomy and PEG tube placement on this patient. Remains on vital Hp at 59 mL per hour. Surgical consultation for tracheostomy and PEG tube was initiated. WBC count is 9.9 hemoglobin is 10.4. Electrolytes are normal. Renal profile is normal. LDH remains high at 1572. C-reactive protein is 4.0. Both seem to be trending down. And showing improvement. Chest x-ray continues to show bilateral pneumonia. 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 Patient was reevaluated today on 06/25/2020, remains in the ICU, intubated and me chanically ventilated. She is now on assist control rate of 28 tidal volume 400 FiO2 50% and PEEP at 14. Her ABG showed a pO2 of 61 pCO2 of 53 pH of 7.40. Hence no changes were made in the ventilator settings. The patient remains on Versed at 11 mg per hour, fentanyl at 1.5 mcg/kg/h, and IV fluid at KVO. Chest x-ray continues to show basically bibasilar infiltrates. Patient is scheduled to have PEG and tracheostomy tube placement today. Her enteral feeding is presently on hold. CBC is relatively normal. Electrolytes and renal profile are relatively normal. LDH is 1510, C-reactive protein is 7.5. Reevaluated today on 06/26/2020, patient remains in the ICU, intubated and mechanically ventilated. She is status post tracheostomy and PEG tube placement done yesterday on 06/25. Vent settings are assist control rate 28 tidal volume is 400 FiO2 50% PEEP of 14 ABG showed a pO2 of 60 pCO2 of 44 pH of 7.47. Patient remains on Versed and on fentanyl. My plan is to discontinue both tod ay, assess the patient's mental status off sedation, and decide whether she needs to be on that much sedation or not after waking up with the patient and assessing mental status. Tube feeds remain on hold at present because the patient had a PEG tube placed yesterday. She will be restarted back on vital hp at 59 mL per hour. Again the patient will receive today at least a brief sedation holiday. Patient is hemodynamically stable, chest x-ray continues to show minimal bibasilar infiltrates, consistent with COVID-19 pneumonia. Improved compared to her baseline. CBC is normal. Basic metabolic profile is normal. D-dimer is 29.03 LDH is 1368 C-reactive protein is 7.7. Patient was on Lovenox at 40 mg subcu twice a day, and I will go ahead and place her back on Lovenox, may eventually restart her back on Xarelto and discontinue Lovenox. Patient was reevaluated today on 06/27/2020, remains in the ICU, intubated and mechanically ventilated. Sedated but not requiring any paralytics. Patient is on assist control rate of 28 tidal volume is 400 FiO2 50% and PEEP of 14. Her ABG showed a pO2 of 62 pCO2 of 38 pH of 7.48. Patient is receiving vital Hb at 30 mL per hour. She is on fentanyl at 1 mcg/kg/m, she is also on Versed at 11 milligrams per hour. Her IV fluid is at KVO. And will increase the IV fluid today a bit. Attempts have been made over the last few days to cut down on sedation, however the patient gets extremely agitated, no appropriate responses have been noted on lower amounts of sedation. And will give the patient today another trial of lowering sedation and assessment of mental status. Previous attempts have failed in the last few days. But we will continue to try sedation holidays on a daily basis. At least the patient is not requiring any paralytics . Chest x-ray continues to show by basilar infiltrates. Not significantly changed over the last few days. LDH today is 1037 C-reactive protein is 7.0. Steadily improving considering the patient had LDH in the range of 3400 in the last few days ABC today is relatively normal hemoglobin is 9.7. Basic metabolic profile is normal with relatively normal renal profile. Progress note dated 06/28/2020. The patient was admitted on June 12. The patient was intubated on June 18. The patient underwent tracheostomy and PEG tube placement on June 25. She was diagnosed with COVID 19 pneumonia with hypoxemic respiratory failure. The patient is again seen in the intensive care unit room 254. She remains on the mechanical ventilator, on the volume assist control mode, rate 28, tidal volume 400, FiO2 50%, and PEEP of 14. Blood gases show a PaO2 of 64, PaCO2 of 40, and pH of 7.47. She remains on a Versed drip at 9 mg an hour, fentanyl drip at 1 mcg/kg/h, saline at 20 mL an hour, and vital high protein at 59 mL an hour, which is goal. We will DC the Versed and get the patient on propofol. We will attempt to get the patient off the fentanyl drip by using Dilaudid when necessary. Labs include a white count 8.2, hemoglobin 9.4, hematocrit 28.8, and platelet count 240,000. D-dimer is 12.34. Sodium 140, potassium 4.1, chlorides 106, CO2 31, anion gap 3, BUN 31, creatinine 0.48. Chest x-ray shows bilateral diffuse infiltrates. Tracheostomy tube is noted. Progress note dated 06/29/2020. This patient was admitted on June 12, and was intubated on June 18. The patient underwent tracheostomy and PEG tube placement on June 25. She was diagnosed with acute hypoxemic respiratory failure secondary to coronavirus pneumonia. Currently, the patient remains in the intensive care unit. She is in room 254. She is again seen today. She remains on the ventilator, volume assist control mode, rate 28, tidal volume 400, FiO2 50%, and PEEP of 14. Blood gases show pO2 of 57, pCO2 of 34, pH is 7.52. The patient remains on propofol at 70 mcg/kg/m, saline at 10 mL an hour, and vital high protein at goal, which is 40 mL an hour. Today, we will do a daily interruption of sedation. White count 10, hemoglobin 9.7, hematocrit 30.2, platelet count 2 58,000. D-dimer is 10.49. Sodium 137, potassium 3.9, chlorides 104, CO2 28, anion gap 5, BUN 28, creatinine 0.54. LDH is 952, C-reactive protein is 9. No chest x-ray today. Progress note dated 06/30/2020. 69-year-old female, admitted on June 12, intubated on June 18, and on June 25, underwent tracheostomy and PEG tube placement. She was diagnosed initially with acute hypoxemic respiratory failure secondary to coronavirus pneumonia. Currently, the patient remains on the volume assist control mode, rate 28, tidal volume 400, FiO2 50%, and PEEP of 14. The people be dropped from 14, down to 10. The patient's blood gases show a PaO2 of 66, PaCO2 36, and a pH 7.49. The patient remains on propofol at 75 mcg/kg/m, saline at 20 mL an hour, and vital high protein at 19 mL an hour, which is goal. She did have a daily interruption of sedation on June 29. She did fair. We are going to DC the long acting insulin and start her on NovoLog sliding scale, every 4 hours. In addition, we'll go ahead and start her on Rocephin, for a pending culture from the neck area/tracheostomy site. White count 8.3, hemoglobin 9.1, hematocrit 27.2, and platelet count are 254,000. Sodium 138, potassium 3.2, chlorides 106, CO2 27, anion gap 5, BUN 26, and creatinine 0.41. LDH is 909, and C-reactive protein is 23.4. Gram stain from the neck wound area shows group B strep, and 2 gram- negative bacilli. Chest x-ray shows bilateral infiltrates, worse on the left. Progress note dated 07/01/2020. 69-year-old female, admitted on June 12, intubated on June 18, and on June 25, underwent tracheostomy and PEG tube placement. The patient was initially diagnosis with acute hypoxemic respiratory failure secondary to coronavirus pneumonia. The patient remains on the mechanical ventilator. Ventilator settings include a volume assist control mode, rate 28, tidal volume 400, FiO2 60%, and PEEP of 10. Blood gases show a PaO2 of 59, pCO2 42, and pH 7.45. The patient's on propofol at 5 mcg/kg/m, saline at 20 mL an hour, 5 mg an hour, and vital high protein at goal, which is 19 mL an hour. Because of dysynchrony with the ventilator, the patient will need a higher dose of propofol. White count is 11.3, hemoglobin 10.1, hematocrit 31.5, and platelet count 306,000. Sodium 141, potassium 3.3, chlorides 105, CO2 29, anion gap 7, BUN 20, creatinine 0.32. LDH is 1246. C-reactive protein is 37.7. Chest x-ray shows diffuse bilateral airspace disease, which is unchanged. Progress note dated 07/02/2020. 69-year-old female, that has been here in the hospital now for 20 days. The patient was initially admitted on June 12, intubated on June 18, and underwent tracheostomy on June 25. The patient remains on mechanical ventilator. She is on the volume assist control mode, rate 28, tidal volume 400, FiO2 60%, and a PEEP of 10. Blood gases show a PaO2 of 51, pCO2 40, pH is 7.52. The patient currently on propofol at 50 mcg/kg/m, saline at 20 mL an hour, Cleveprex is currently weaned off, and vital high protein 19 mL an hour, which is goal. For the metabolic alkalosis, she'll get 2 doses of Diamox, 250 mg, twice a day. The patient will also have a neurology consultation, and a repeat brain CT. Her mental status does not improve. White count 8.6, hemoglobin 8.8, hematocrit 26.9, platelet count normal. D-dimer 4.08. Sodium 140, potassium 3.8, chlorides 104, CO2 32, anion gap 4, BUN 24, creatinine 0.42. LDH is a 20. C- reactive protein 49.9. Progress note dated 07/03/2020. 69-year-old female, again seen in room 254. Because of poor mental status, and not fully waking up during daily interruption of sedation, I sent the patient for computed tomography scan of the brain yesterday without contrast. It showed a large area of hypodensity in the right cerebral hemisphere consistent with subacute right middle cerebral artery infarct. The neurologist was alerted. I did speak to the patient's DURABLE POWER OF SCHEDULING CLERK, Eva, who is the patient's niece. The patient will be made a DO NOT RESUSCITATE. They're coming to see her. They will at that point, make the patient a comfort measures patient. Currently, the patient's on the volume assist control mode, rate 28, tidal volume 400, FiO2 60%, PEEP of 10. Blood gases show pO2 60, pCO2 40, pH 7.45. Patient's on saline at 20 mL an hour, propofol at 40 mcg/kg/m, and vital high protein at 19 mL an hour, which is goal. Given the recent findings on the computed tomography scan of the brain, her overall prognosis is very very poor. White count 8.5, hemoglobin 8.1, hematocrit 27.3, platelet count 309,000. D- dimer 4.48. Sodium 141, potassium 3, chlorides 108, CO2 30, anion gap 3, BUN 18, creatinine 0.51. Glucose 158. LDH is a 95, and C-reactive protein is 46.8. Chest x-ray shows diffuse bilateral infiltrates, which are unchanged. Objective - Vital Signs Vital signs: Vital Signs Temp 98.8 F 07/03/20 08:00 Pulse 98 07/03/20 10:00 Resp 34 H 07/03/20 10:00 BP 147/69 07/03/20 03:00 Pulse Ox 89 L 07/03/20 10:00 Intake & Output 07/02/20 07/03/20 07/03/20 18:59 06:59 18:59 Intake Total 910.638 915.031 198 Output Total 505 745 255 Balance 405.638 170.031 -57 Weight 89.5 kg 88.8 kg Intake: IV 276 276 92 .9NS pressure bag A line 36 36 12 0.9 Normal Saline @ KVO 240 240 80 Intake, IV Titration 276.638 381.031 Amount propofoL 1,000 mg In 276.638 381.031 Empty Bag 1 bag @ Titrate IV .Q0M [facility] Rx#: [id number] Tube Feeding 228 228 76 Other 130 30 30 Output: Urine 505 745 255 Other: Voiding Method Indwelling Catheter Indwelling Catheter Indwelling Catheter ABP, PAP, CO, CI - Last Documented Arterial Blood Pressure 105/56 - Exam The patient is sedated, and has a midline tracheostomy tube. Saturations are 89 %. HEENT examination is grossly unremarkable. Neck supple. Full range of motion. No adenopathy thyromegaly or neck vein distention. Cardiovascular examination reveals regular rhythm rate. S1-S2 normal. No S3 or S4. No discernible murmur noted. Heart rate is 98 bpm. Heart sounds are distant. Lungs reveal coarse bilateral rhonchi, and crackles. No wheezes. Breath sounds equal bilaterally. Breath sounds are diminished bilaterally. Abdomen soft bowel sounds are heard. No masses or tenderness. Extremities are intact. No cyanosis clubbing or edema. Skin is without rash or lesion. Neurologic examination could not be assessed as the patient's currently sedated. - Labs CBC & Chem 7: 07/03/20 04:10 07/03/20 04:10 Labs: Abnormal Lab Results - Last 24 Hours (Table) 07/02/20 07/02/20 07/02/20 Range/Units 12:06 17:34 23:07 RBC (3.80-5.40) m/uL Hgb (11.4-16.0) gm/dL Hct (34.0-46.0) % MCHC (31.0-37.0) g/dL RDW (11.5-15.5) % Lymphocytes # (1.0-4.8) k/uL D-Dimer (<0.60) mg/L FEU ABG pO2 (83-108) mmHg ABG HCO3 (21-25) mmol/L ABG Total CO2 (19-24) mmol/L ABG O2 Saturation (94-97) % Potassium (3.5-5.1) mmol/L Chloride (98-107) mmol/L BUN (7-17) mg/dL Creatinine (0.52-1.04) mg/dL Glucose (74-99) mg/dL POC Glucose (mg/dL) 183 H 151 H 149 H (75-99) mg/dL AST (14-36) U/L ALT (4-34) U/L Lactate Dehydrogenase (313-618) U/L C-Reactive Protein (<1.0) mg/dL Total Protein (6.3-8.2) g/dL Albumin (3.5-5.0) g/dL 07/03/20 07/03/20 07/03/20 Range/Units 04:10 04:10 04:10 RBC 2.83 L (3.80-5.40) m/uL Hgb 8.1 L (11.4-16.0) gm/dL Hct 27.3 L (34.0-46.0) % MCHC 29.8 L (31.0-37.0) g/dL RDW 15.6 H (11.5-15.5) % Lymphocytes # 0.5 L (1.0-4.8) k/uL D-Dimer 4.48 H (<0.60) mg/L FEU ABG pO2 (83-108) mmHg ABG HCO3 (21-25) mmol/L ABG Total CO2 (19-24) mmol/L ABG O2 Saturation (94-97) % Potassium 3.0 L (3.5-5.1) mmol/L Chloride 108 H (98-107) mmol/L BUN 18 H (7-17) mg/dL Creatinine 0.51 L (0.52-1.04) mg/dL Glucose 158 H (74-99) mg/dL POC Glucose (mg/dL) (75-99) mg/dL AST 103 H (14-36) U/L ALT 78 H (4-34) U/L Lactate Dehydrogenase 895 H (313-618) U/L C-Reactive Protein 46.8 H (<1.0) mg/dL Total Protein 4.8 L (6.3-8.2) g/dL Albumin 2.1 L (3.5-5.0) g/dL 07/03/20 Range/Units 05:18 RBC (3.80-5.40) m/uL Hgb (11.4-16.0) gm/dL Hct (34.0-46.0) % MCHC (31.0-37.0) g/dL RDW (11.5-15.5) % Lymphocytes # (1.0-4.8) k/uL D-Dimer (<0.60) mg/L FEU ABG pO2 60 L (83-108) mmHg ABG HCO3 28 H (21-25) mmol/L ABG Total CO2 29 H (19-24) mmol/L ABG O2 Saturation 90.6 L (94-97) % Potassium (3.5-5.1) mmol/L Chloride (98-107) mmol/L BUN (7-17) mg/dL Creatinine (0.52-1.04) mg/dL Glucose (74-99) mg/dL POC Glucose (mg/dL) (75-99) mg/dL AST (14-36) U/L ALT (4-34) U/L Lactate Dehydrogenase (313-618) U/L C-Reactive Protein (<1.0) mg/dL Total Protein (6.3-8.2) g/dL Albumin (3.5-5.0) g/dL Assessment and Plan Assessment: Acute hypoxemic respiratory failure secondary to COVID 19 pneumonitis/pneumonia, with intubation on June 18, and tracheostomy/PEG tube placement on June 25. 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 New onset atrial fibrillation with RVR. Elevated inflammatory marker secondary to COVID infection. Culture adjacent to the tracheostomy site shows evidence of group B strep, Proteus mirabilis, and Klebsiella pneumoniae. History of CVA and aphasia. History of essential hypertension. History of type 2 diabetes mellitus. History of hyperlipidemia. Status post right-sided mastectomy for breast cancer. Previous history of tobacco use. Hyperlipidemia. Plan: Plan dated 06/28/2020. In light of the recent article in the Journal of Critical Care, which compared Versed versus propofol for critically ill patient's in the intensive care unit, the patient's Versed will be discontinued in favor of propofol. In addition, we will attempt to get the patient off of fentanyl by using Dilaudid when necessary. Additional recommendations and suggestions are forthcoming. Follow patient and make recommendations were appropriate. Overall prognosis remains guarded. She might be a candidate for long-term acute care, if we can get her off the propofol and fentanyl eventually. Plan dated 06/29/2020. The patient's Versed was discontinued yesterday, in favor of propofol. We will attempt to wean that today. In addition, the patient will have a daily interruption of sedation today. The patient would be a great candidate for a long-term acute care facility, once we get her off the sedative. We will continue to follow her very closely. She is to get Dilaudid when necessary. Additional recommendations and suggestions are forthcoming. Prognosis is guarded. We will continue to follow along, and make recommendations where appropriate. Plan dated 06/30/2020. The patient's PEEP will be dropped down to 10, from her current PEEP level of 14. Her gases are reviewed. She remains on propofol at 75 mcg/kg/m. The patient will have another daily interruption of sedation today. In addition, we'll DC all long-acting insulin, and put her on NovoLog sliding scale, every 4 hours. Finally, we start Rocephin, for the pending abnormal culture data from the Gram stain from the tracheostomy site. Additional recommendations and suggestions are forthcoming. We will attempt to get her off the propofol, so that we can get her transferred to long-term acute care. Additional recommendations and suggestions are forthcoming. Prognosis is poor. Plan dated 07/01/2020. The patient's propofol will need to be increased a bit. The patient remains on Cleveprex for blood pressure control. She is getting nutrition at goal. The culture adjacent to the tracheostomy site showed evidence of group B strep, Kl ebsiella, and Proteus. All are sensitive to ceftriaxone. The patient will continue to be maintained on this antibiotic for the time being. The rest of medications are reviewed and are appropriate. Prognosis is guarded. The nurse will call the family members to give them an update, and determine whether or not there is a change in CODE STATUS. Plan dated 07/02/2020. The patient does not wake up during daily interruption of sedation. Hence, the patient will be reevaluated by neurology, and also have her brain CT. For the metabolic alkalosis, the patient will get Diamox 250 mg now and 250 mg in 12 hours. The patient remains on propofol, Cleveprex at been weaned down. She's being enterally fed at goal, with vital high protein. Prognosis is poor. We'll continue to follow. I did ask the nurse to again reach out to the family about CODE STATUS. We will continue to follow this patient and make recommendations were appropriate. Plan dated today 07/03/2020. The patient's computed tomography scan was evaluated by neurology. His impression was that her prognosis at this point is extremely poor. I did speak to the patient's DURABLE POWER OF SCHEDULING CLERK, a niece by the name of Eva. She is picking her mother coming to the hospital. The patient will be made a DO NOT RESUSCITATE. Eva is in agreement with this. In addition, once they get here, we plan to withdraw life support and make the patient comfortable. Additional recommendations and suggestions are forthcoming. Prognosis at this point is extremely poor. Additional recommendations and suggestions are forthcoming. Time with Patient: Greater than 30
[2020-07-03] MEDS ORDERED: LORazepam 2 MG/ML INJ IV PRN (12:01)
[2020-07-03] MEDS ORDERED: MORPHINE SULFATE 2 MG/ML SYRINGE IV PRN (12:01)
[2020-07-03] MEDS ORDERED: ATROPINE OPHTH SOLN 1% 5ML BTL SUBLINGUAL PRN (12:01)
[2020-07-03] MEDS: HYDROmorphone 1 MG/ML 1 ML SYRINGE IVP PRN (12:21)
[2020-07-03] MEDS ORDERED: MORPHINE SULFATE (100 MG/2 ML) 100 MG in SODIUM CHLORIDE 0.9% 100 ML IV SCH (13:00)
[2020-07-03 14:06] VITALS: PULSE 97; RESP 39
--- NOTE | 2020-07-03 20:18 | P.DS ---
Providers Date of admission: 06/12/20 15:49 Expected date of discharge: 07/03/20 Attending physician: Armond Constantino Consults: 06/12/20 15:49 Consult Physician Stat Consulting Provider: Will Glover Consult Reason/Comments: icu patient Do you want consulting provider notified?: Already Contacted 06/12/20 16:35 Consult Physician Routine Consulting Provider: Beti Mcallister Consult Reason/Comments: altered mental status, aphasia? Do you want consulting provider notified?: Yes 06/13/20 15:53 Consult to Anesthesia Stat Consulting Provider: Anesthesia,Services Consult Reason/Comments: urgent for lumbar puncture 06/14/20 09:18 Consult to Anesthesia Stat Consulting Provider: Anesthesia,Services Consult Reason/Comments: urgent for LP 06/24/20 09:09 Consult Physician Routine Consulting Provider: Tobin Leavitt Consult Reason/Comments: trach and peg insertion, COVID Do you want consulting provider notified?: Yes 07/03/20 08:28 Consult Physician Routine Consulting Provider: Ky Krishnamurthy Consult Reason/Comments: Stroke Seems embolic. Recommend MAXI Do you want consulting provider notified?: Yes Primary care physician: Heriberto PandaMcGehee Hospital Course: Chief Complaint: Short of breath History of presenting complaint: This is a 69-year-old patient who follows with Dr. eubanks . Patient was last seen in the ER about 5 days ago. She then had an having respiratory symptoms including cough for about 2 or 3 weeks prior to that. On this presentation is patient is altered sense. She was last seen normal at home on Sunday. EMS was called out and they found the patient to be hypoxic with 46%. Patient was ventilated with a bag valve and pulse oxygenation improved. He was placed on a nonrebreather and brought here. Here patient's problem of BiPAP. And is somewhat delirious. Not able to give any history. Patient chronic stable medical conditions include diabetes, hypertension, hyperlipidemia, history of breast cancer with right mastectomy. No family members currently present. Admitted with acute severe bilateral COVID 19 pneumonia, acute severe hypoxic respiratory failure, acute metabolic encephalopathy, with delirium. Patient placed on oxygen. Decadron. Lovenox. Consultation to neurology, pulmonary. Lumbar puncture/CSF unremarkable. Patient was placed on BiPAP. Progression of respiratory status patient intubated on June 18. Run of A. fib with rapid ventricular rate-sinus rhythm. Patient with a tracheostomy and a PEG tube placed. Patient really did not improve and continued to deteriorate. Today: Prior evening a computed tomography scan of the brain without contrast showed a large area of hypodensity in the right cerebral hemisphere consistent with a stroke in the right middle cerebral artery area. Patient's family decided to proceed with comfort measures.. Dr. Cheng did talk to them. Patient to be terminally weaned. On the ventilator. Late in the day patient Consultation: Dr. Cheng partners from pulmonary Dr. Leavitt from general surgery Dr. escalona from vascular Past medical history to include: Breast cancer with mastectomy, diabetes, hypertension, hyperlipidemia, anxiety Social history: Former smoker. Lives alone. Family history: Patient cannot tell INVESTIGATIONS, reviewed in the clinical context: Computed tomography scan of the brain: 80 of stroke in the right MCA territory. July 02: WBC 8.6 hemoglobin 8.8 platelets 288 d-dimer 4.08 potassium 3.8 creatinine 0.4 to CRP 49.9 July 01: WBC 11.3 hemoglobin 10.1 platelets 306 potassium 3.3 creatinine 0.3 to CRP 37.7 June 30: WBC 8.3 hemoglobin 9.1 and platelets 254 potassium 3.2 creatinine 0.41 Ultrasound Doppler upper extremity left: Superficial vein thrombosis identified. 2-D echo: A. fib. EF greater than 55% June 14: WBC 6.6 hemoglobin 12.5 platelets 370 sodium 154 potassium 4.3 creatinine 0.94 June 13: D-dimer 2.13 ABG pH 7.39 pCO2 45 pO2 68 CRP 356 troponin I 0.190 WBC 7.3 hemoglobin 11.8 platelets 357 ABG: PH 7.45 pCO2 32, pO2 79 Potassium 3.9 creatinine 1.0 blood glucose 321 Troponin I 0.104 CRP 334 EKG tracing personally reviewed by me-normal sinus rhythm, nonspecific ST segment changes Chest x-ray film personally reviewed by me-bilateral infiltrate severe CT angio chest: Bilateral diffuse patchy groundglass opacities and consolidation. CTA head and neck: Negative Computed tomography scan of the brain: Negative Cause of : COVID 19 pneumonia Assessment and plan: -Acute severe bilateral COVID 19 pneumonia, diagnosed 5 days before admission, with symptoms present 2-3 weeks prior to that.-Not improving IV dexamethasone-discontinued, subcu Lovenox, vitamin C vitamin D Pepcid zinc. Received ACTEMRA -Acute mid cerebral artery area ischemic stroke involving the anterior and posterior temporal lobe. Right posterior frontal lobe. In right parietal lobe. -Acute severe hypoxic respiratory failure, secondary to COVID 19 -not improving Initially BiPAP-100%. Intubated June 18. On ventilator with FiO2 60% -Septic shock-improved norepinephrine/levo fed-stopped -Acute delirium and acute metabolic encephalopathy from COVID 19 pneumonia Follow closely. -Diabetes mellitus type 2 on oral hypoglycemic, uncontrolled with hyperglycemia secondary to steroids Hold off oral hypoglycemic. 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 Catapres patch 0.2 -Diabetic peripheral neuropathy Resume gabapentin when able to tolerate by mouth -Hyperlipidemia Resume Mevacor unable to tolerate by mouth -Patient underwent lumbar puncture. CSF benign. -Significant hypernatremia with hyperchloremia.-Corrected IV fluids -Paroxysmal atrial fibrillation with rapid ventricle [id number] rhythm Received amiodarone. Cardizem drip discontinued. Started xarelto-held -Superficial vein thrombosis of the left upper extremity. Patient on subcu Lovenox Disposition: Patient Plan - Discharge Summary Discharge Rx Participant: No New Discharge Prescriptions: No Action Vitamin A 120 Mcg 120 mcg PO DAILY Garlic 1 tab PO DAILY Sertraline [Zoloft] 50 mg PO DAILY Cholecalciferol [Vitamin D3 (25 Mcg = 1000 Iu)] 25 mcg PO DAILY Ascorbic Acid [Vitamin C] 1,000 mg PO DAILY metFORMIN HCL ER [Glucophage Xr] 750 mg PO DAILY Cook-3 Acid Ethyl Esters [Lovaza] 1 gm PO BID Lovastatin [Mevacor] 20 mg PO HS Lisinopril-Hctz 20-25 mg [Zestoretic 20-25] 1 tab PO DAILY Glimepiride [Amaryl] 2 mg PO DAILY Glimepiride [Amaryl] 1.5 mg PO HS Gabapentin 600 mg PO BID Gabapentin 300 mg PO DAILY@1200 amLODIPine [Norvasc] 5 mg PO BID Cinnamon Bark [Cinnamon] 500 mg PO DAILY Cranberry Fruit Extract [Cranberry] 500 mg PO DAILY Turmeric/Turmeric Root Extract [Turmeric 450-50 mg Capsule] 1 cap PO DAILY Tart Doll Extract 1 cap PO DAILY Coconut Oil 1 cap PO DAILY Lysine HCl [l-Lysine] 1,000 mg PO DAILY Famotidine 20 mg PO BID PRN PRN Reason: Heartburn Acetaminophen Tab [Tylenol Tab] 1,000 mg PO Q6H PRN PRN Reason: Fever And/ Or Pain Discharge Medication List Ascorbic Acid [Vitamin C] 1,000 mg PO DAILY 03/23/20 [History] Cholecalciferol [Vitamin D3 (25 Mcg = 1000 Iu)] 25 mcg PO DAILY 03/23/20 [History] Cinnamon Bark [Cinnamon] 500 mg PO DAILY 03/23/20 [History] Gabapentin 300 mg PO DAILY@1200 03/23/20 [History] Gabapentin 600 mg PO BID 03/23/20 [History] Garlic 1 tab PO DAILY 03/23/20 [History] Glimepiride [Amaryl] 1.5 mg PO HS 03/23/20 [History] Glimepiride [Amaryl] 2 mg PO DAILY 03/23/20 [History] Lisinopril-Hctz 20-25 mg [Zestoretic 20-25] 1 tab PO DAILY 03/23/20 [History] Lovastatin [Mevacor] 20 mg PO HS 03/23/20 [History] Cook-3 Acid Ethyl Esters [Lovaza] 1 gm PO BID 03/23/20 [History] Sertraline [Zoloft] 50 mg PO DAILY 03/23/20 [History] Vitamin A 120 Mcg 120 mcg PO DAILY 03/23/20 [History] amLODIPine [Norvasc] 5 mg PO BID 03/23/20 [History] metFORMIN HCL ER [Glucophage Xr] 750 mg PO DAILY 03/23/20 [History] Coconut Oil 1 cap PO DAILY 04/14/20 [History] Cranberry Fruit Extract [Cranberry] 500 mg PO DAILY 04/14/20 [History] Lysine HCl [l-Lysine] 1,000 mg PO DAILY 04/14/20 [History] Tart Doll Extract 1 cap PO DAILY 04/14/20 [History] Turmeric/Turmeric Root Extract [Turmeric 450-50 mg Capsule] 1 cap PO DAILY 04/14/20 [History] Acetaminophen Tab [Tylenol Tab] 1,000 mg PO Q6H PRN 06/12/20 [History] Famotidine 20 mg PO BID PRN 06/12/20 [History] Follow up Appointment(s)/Referral(s): Heriberto Eubanks MD [Primary Care Provider] - 1-2 days Discharge Disposition: - Preliminary Cause of Preliminary Cause of : COVID 19 pneumonia
--- NOTE | 2020-07-06 09:48 | CDI ---
Documentation Clarification Form Mortality Review Date: 07/06/2020 09:31:55 AM From: Brittney Motley RN, CCDS Admit Date: 06/12/2020 03:49:00 PM Patient Name: Kathy Killian Visit Number: [id number] Discharge Date: 07/03/2020 03:06:00 PM ATTENTION: The Clinical Documentation Specialists (CDI) and [facility] Coding Staff appreciate your assistance in clarifying documentation. Please respond to the clarification below the line at the bottom and electronically sign. The CDI & [facility] Coding staff will review the response and follow-up if needed. Please note: Queries are made part of the Legal Health Record. If you have any questions, please contact the author of this message via ITS. Dr. Armond Constantino The patient presented with Covid 19 pneumonia and signs and symptoms of end organ damage. Additional clarification regarding the etiology/cause of the clinical indicators is requested if the condition was POA. History/Risk Factors: DM2, HTN, DM peripheral neuropathy, former smoker, Obesity, Clinical Indicators: 06/12 H&P: -Acute severe bilateral COVID 19 pneumonia, diagnosed 5 days ago, with symptoms present 2-3 weeks prior to that. Acute severe hypoxic respiratory failure, secondary to COVID 19 pneumonia, requiring BiPAP. Acute delirium and acute metabolic encephalopathy." 06/19 Attending progress Note: "Septic shock. On norepinephrine" 06/21-07/03 Attending Progress Note; "Septic shock-improved." 06/12 WBC: WNL, did not rise until 06/18 to 14 06/12 Lactic acid: 1.3 Blood cultures: not done 06/12 1402 Admission Vital signs: Temp 98.3, HR 104,rr 32, B/P 145/86, Spo2 86% on 15L High flow NC Documented Infection: Covid 19 pneumonia End Organ Damage POA; Acute hypoxic respiratory failure, Acute metabolic Encephalopathy Treatment: ID Consult: not consulted 06/30-07/03 Ceftriaxone 1gm IVPB q 24 hrs. 06/13 Tocilizumab 750mg IVPB OT IV Bolus: none In your professional opinion, please clarify if these findings signify one of the following conditions: [ ] Sepsis POA [ ] Sepsis, Not POA [ ] Severe Sepsis with organ failure [ ] Septic Shock [ ] Other, please specify [ ] Unable to determine SIRS Criteria: 2 or more of the following may indicate SIRS -Temperature < 96.8F (36C) or > 101.0F (38.3C) -Heart Rate > 90 bpm -Respiratory Rate > 20 breaths/min or PaCO2 < 32 mmHg -White Blood Cell Count > 12,000 or < 4,000 cells/mm3 or > 10% bands Septic shock (Template Last Reviewed: April 2020) RADHA
--- NOTE | 2020-07-06 10:12 | CDI ---
Documentation Clarification Form Date: 07/06/2020 10:02:50 AM From: Brittney Motley RN, CCDS Admit Date: 06/12/2020 03:49:00 PM Patient Name: Kathy Killian Visit Number: [id number] Discharge Date: 07/03/2020 03:06:00 PM ATTENTION: The Clinical Documentation Specialists (CDI) and [facility] Coding Staff appreciate your assistance in clarifying documentation. Please respond to the clarification below the line at the bottom and electronically sign. The CDI & [facility] Coding staff will review the response and follow-up if needed. Please note: Queries are made part of the Legal Health Record. If you have any questions, please contact the author of this message via ITS. Dr. Armond Champion Stage 2 pressure ulcer on the nose is documented beginning 06/19 in the Nursing pressure injury assessments. Additional clarification regarding the stage of the pressure ulcer is requested. History/Risk Factors: Acute hypoxic respiratory failure with Covid 19 pneumonia, Septic Shock, Metabolic encephalopathy, DM2, Obesity, Former smoker, Patient maintained on tube feedings Clinical Indicators: Location: Nose Wound description: Stage 2, hospital acquired, due to nonremovable diagnostic medical sonographer (BIPAP), with a scant amount of serous drainage Treatment: 06/29- 07/02 ABD ointment applied Please clarify the stage of pressure ulcer to the nose if known: [ ] Stage 2 Pressure Ulcer Nose [ ] Other condition, please specify [ ] Unable to determine Clinical Definitions: Stage 1 Pressure Ulcer: intact skin, non-blanching redness of local area Stage 2 Pressure Ulcer: Partial thickness, loss of dermis, pink wound bed Stage 3 Pressure Ulcer: Full thickness tissue loss Stage 4 Pressure Ulcer: Full thickness tissue loss with exposed bone, tendon, or muscle. Unstageable pressure ulcer: Full thickness tissue loss in which the base of the ulcer is covered by slough (yellow, abdullahi, pedroza, green or brown) and/or eschar (abdullahi, brown or black) in the wound bed. (Template Last Revised: May 2020) Stage II pressure ulcer on the nose MTDD
--- NOTE | 2020-07-06 10:26 | CDI ---
Documentation Clarification Form Mortality Review Date: 07/06/2020 10:15:19 AM From: Brittney Motley RN, CCDS Admit Date: 06/12/2020 03:49:00 PM Patient Name: Kathy Killian Visit Number: [id number] Discharge Date: 07/03/2020 03:06:00 PM ATTENTION: The Clinical Documentation Specialists (CDI) and [facility] Coding Staff appreciate your assistance in clarifying documentation. Please respond to the clarification below the line at the bottom and electronically sign. The CDI & [facility] Coding staff will review the response and follow-up if needed. Please note: Queries are made part of the Legal Health Record. If you have any questions, please contact the author of this message via ITS. Dr. Armond Constantino A Right Buttock pressure ulcer is documented beginning 06/19 in Nursing Pressure Injury assessments. Additional clarification regarding the stage of the pressure ulcer is requested. History/Risk Factors: DM2, Covid 19 pneumonia with acute hypoxic respiratory failure, Obesity, metabolic encephalopathy, former smoker, DM peripheral neuropathy Clinical Indicators: Location: Right Buttock Wound description: Stage 2, Hospital acquired, small amount of sanguinous drainage with a slight odor, araseli wound erythema Treatment: Duoderm 07/01 Honey HD sheet and Duoderm applied Turn Q2hrs. Consults: Wound care saw and addressed Sacral/Coccyx pressure ulcer but not buttock pressure ulcer Please clarify the stage of pressure ulcer [insert location], if known: [ ] Stage 2 Pressure Ulcer [insert location] [ ] Other condition, please specify [ ] Unable to determine Clinical Definitions: Stage 1 Pressure Ulcer: intact skin, non-blanching redness of local area Stage 2 Pressure Ulcer: Partial thickness, loss of dermis, pink wound bed Stage 3 Pressure Ulcer: Full thickness tissue loss Stage 4 Pressure Ulcer: Full thickness tissue loss with exposed bone, tendon, or muscle. Unstageable pressure ulcer: Full thickness tissue loss in which the base of the ulcer is covered by slough (yellow, abdullahi, pedroza, green or brown) and/or eschar (abdullahi, brown or black) in the wound bed. (Template Last Revised: May 2020) Stage II pressure ulcer on the right buttock MTDD
--- NOTE | 2020-07-14 11:59 | CDI ---
Documentation Clarification Form Date: 07/14/2020 11:53:24 AM From: Brittney Motley RN, CCDS Admit Date: 06/12/2020 03:49:00 PM Patient Name: Kathy Killian Visit Number: [id number] Discharge Date: 07/03/2020 03:06:00 PM ATTENTION: The Clinical Documentation Specialists (CDI) and [facility] Coding Staff appreciate your assistance in clarifying documentation. Please respond to the clarification below the line at the bottom and electronically sign. The CDI & [facility] Coding staff will review the response and follow-up if needed. Please note: Queries are made part of the Legal Health Record. If you have any questions, please contact the author of this message via ITS. Dr. Armond Constantino The patient presented with Covid 19 pneumonia and signs and symptoms of end organ damage. Additional clarification regarding the etiology/cause of the documented septic shock is requested, and please include if the condition was POA. History/Risk Factors: DM2, HTN, DM peripheral neuropathy, former smoker, Obesity, Clinical Indicators: 06/12 H P: -Acute severe bilateral COVID 19 pneumonia, diagnosed 5 days ago, with symptoms present 2-3 weeks prior to that. Acute severe hypoxic respiratory failure, secondary to COVID 19 pneumonia, requiring BiPAP. Acute delirium and acute metabolic encephalopathy." 06/19 Attending progress Note: "Septic shock. On norepinephrine" 06/21-07/03 Attending Progress Note; "Septic shock-improved." 06/12 WBC: WNL, did not rise until 06/18 to 14 06/12 Lactic acid: 1.3 Blood cultures: not done 06/12 1402 Admission Vital signs: Temp 98.3, HR 104,rr 32, B/P 145/86, Spo2 86% on 15L High flow NC Documented Infection: Covid 19 pneumonia End Organ Damage POA; Acute hypoxic respiratory failure, Acute metabolic Encephalopathy Treatment: ID Consult: not consulted 06/30-07/03 Ceftriaxone 1gm IVPB q 24 hrs. 06/13 Tocilizumab 750mg IVPB OT IV Bolus: none In your professional opinion, please clarify if these findings signify one of the following conditions: [ ] Sepsis secondary to Covid 19 pneumonia POA [ ] Sepsis, secondary to Covid 19 pneumonia, Not POA [ ] Other, please specify [ ] Unable to determine SIRS Criteria: 2 or more of the following may indicate SIRS -Temperature < 96.8F (36C) or > 101.0F (38.3C) -Heart Rate > 90 bpm -Respiratory Rate > 20 breaths/min or PaCO2 < 32 mmHg -White Blood Cell Count > 12,000 or < 4,000 cells/mm3 or > 10% bands Sepsis and septic shock secondary to COVID 19 pneumonia, POA (Template Last Reviewed: April 2020) FRANSISCOD
== END 2020-07-03 15:06 | disposition expired | DRG 4 ==
LOC: EC 14:00 → 2SICU 15:49
PROVIDERS: ADMIT Hospitalist; ATTEND Hospitalist
PROC: 5A0935A Assistance with Respiratory Ventilation, Less than 24 Consecutive Hours, High Flow/Velocity Cannula (ICD-10-PCS; 2020-06-12)
PROC: 5A09457 Assistance with Respiratory Ventilation, 24-96 Consecutive Hours, Continuous Positive Airway Pressure (ICD-10-PCS; 2020-06-12)
PROC: XW033H5 Introduction of Tocilizumab into Peripheral Vein, Percutaneous Approach, New Technology Group 5 (ICD-10-PCS; 2020-06-13)
PROC: 009U3ZX Drainage of Spinal Canal, Percutaneous Approach, Diagnostic (ICD-10-PCS; 2020-06-14)
PROC: 02HV33Z Insertion of Infusion Device into Superior Vena Cava, Percutaneous Approach (ICD-10-PCS; 2020-06-16)
PROC: 0BH17EZ Insertion of Endotracheal Airway into Trachea, Via Natural or Artificial Opening (ICD-10-PCS; 2020-06-18)
PROC: 5A1955Z Respiratory Ventilation, Greater than 96 Consecutive Hours (ICD-10-PCS; 2020-06-18)
PROC: 3E033XZ Introduction of Vasopressor into Peripheral Vein, Percutaneous Approach (ICD-10-PCS; 2020-06-18)
PROC: 03HY32Z Insertion of Monitoring Device into Upper Artery, Percutaneous Approach (ICD-10-PCS; 2020-06-25)
PROC: 4A133J1 Monitoring of Arterial Pulse, Peripheral, Percutaneous Approach (ICD-10-PCS; 2020-06-25)
PROC: 4A133B1 Monitoring of Arterial Pressure, Peripheral, Percutaneous Approach (ICD-10-PCS; 2020-06-25)
PROC: 0B110F4 Bypass Trachea to Cutaneous with Tracheostomy Device, Open Approach (ICD-10-PCS; principal; 2020-06-25 16:10)
PROC: 0DH63UZ Insertion of Feeding Device into Stomach, Percutaneous Approach (ICD-10-PCS; principal; 2020-06-25 16:10)
PROC: 3E0G76Z Introduction of Nutritional Substance into Upper GI, Via Natural or Artificial Opening (ICD-10-PCS; principal; 2020-06-25 16:10)
DX: A41.89 Other specified sepsis (principal); U07.1 COVID-19; R65.21 Severe sepsis with septic shock; E43 Unspecified severe protein-calorie malnutrition; G93.41 Metabolic encephalopathy; I63.411 Cerebral infarction due to embolism of right middle cerebral artery; J12.82 Pneumonia due to coronavirus disease 2019; J96.01 Acute respiratory failure with hypoxia; E87.0 Hyperosmolality and hypernatremia; E87.3 Alkalosis; I82.612 Acute embolism and thrombosis of superficial veins of left upper extremity; J95.02 Infection of tracheostomy stoma; E11.42 Type 2 diabetes mellitus with diabetic polyneuropathy; E11.622 Type 2 diabetes mellitus with other skin ulcer; E11.65 Type 2 diabetes mellitus with hyperglycemia; E87.8 Other disorders of electrolyte and fluid balance, not elsewhere classified; Z51.5 Encounter for palliative care; Z66 Do not resuscitate; L89.152 Pressure ulcer of sacral region, stage 2; N19 Unspecified kidney failure; L89.312 Pressure ulcer of right buttock, stage 2; L89.812 Pressure ulcer of head, stage 2; I48.0 Paroxysmal atrial fibrillation; L98.499 Non-pressure chronic ulcer of skin of other sites with unspecified severity; B96.4 Proteus (mirabilis) (morganii) as the cause of diseases classified elsewhere; B95.1 Streptococcus, group B, as the cause of diseases classified elsewhere; E86.0 Dehydration; B96.1 Klebsiella pneumoniae [K. pneumoniae] as the cause of diseases classified elsewhere; T38.0X5A Adverse effect of glucocorticoids and synthetic analogues, initial encounter; I69.320 Aphasia following cerebral infarction; E78.5 Hyperlipidemia, unspecified; I10 Essential (primary) hypertension; D64.9 Anemia, unspecified; D72.810 Lymphocytopenia; I65.21 Occlusion and stenosis of right carotid artery; M19.90 Unspecified osteoarthritis, unspecified site; G47.33 Obstructive sleep apnea (adult) (pediatric); F41.9 Anxiety disorder, unspecified; Z79.84 Long term (current) use of oral hypoglycemic drugs; Z79.899 Other long term (current) drug therapy; Z79.82 Long term (current) use of aspirin; Z80.0 Family history of malignant neoplasm of digestive organs; Z85.3 Personal history of malignant neoplasm of breast; Z87.891 Personal history of nicotine dependence; Z90.11 Acquired absence of right breast and nipple; Z98.42 Cataract extraction status, left eye; Z98.41 Cataract extraction status, right eye; Z96.1 Presence of intraocular lens; Z87.440 Personal history of urinary (tract) infections; Z82.5 Family history of asthma and other chronic lower respiratory diseases; Z82.49 Family history of ischemic heart disease and other diseases of the circulatory system; Z60.2 Problems related to living alone; Z92.21 Personal history of antineoplastic chemotherapy; Z99.89 Dependence on other enabling machines and devices; Z88.0 Allergy status to penicillin; Z88.2 Allergy status to sulfonamides; Z88.8 Allergy status to other drugs, medicaments and biological substances; Z68.32 Body mass index [BMI] 32.0-32.9, adult
CPT/HCPCS: 36415; 36573; 36600; 43246; 70450; 70496; 70498; 71045; 71275; 80048; 80053; 82140; 82330; 82550; 82607; 82728; 82746; 82747; 82805; 82945; 83605; 83615; 83690; 83735; 84100; 84132; 84157; 84439; 84443; 84478; 84484; 85025; 85027; 85379; 85610; 85730; 86140; 87070; 87075; 87077; 87186; 87205; 89050; 93005; 93306; 93880; 94002; 94003; 94660; 95816; 99291